=== PATIENT | male | born 1960 | race Caucasian/White ===

== ENCOUNTER → 2017-04-08 | Outpatient (CLI) | payer OTHER ==
--- NOTE | 2017-04-08 18:28 | US ---
EXAMINATION TYPE: US thyroid st tissue head/neck DATE OF EXAM: 04/08/2017 5:21 PM COMPARISON: CLINICAL HISTORY: R22.0 Swelling. swelling, hurts when yawns per patient GLAND SIZE: Right Lobe: 5.0 x 2.1 x 2.3 cm Overall Parenchyma: homogenous Left Lobe: 3.7 x 1.1 x 2.0 cm Overall Parenchyma: homogeneous Isthmus Thickness: 0.3 cm NODULES RIGHT: # of nodules measured on right: 0 LEFT: # of nodules measured on left: 0 ISTHMUS: # of nodules measured in the isthmus: 0 Bilateral neck scanned, no evidence of lymphadenopathy. Right lobe appears enlarged. No prominent nodules or lesions seen. IMPRESSION: The right lobe is larger than the left consistent with a mild asymmetric goiter. No discrete mass see n.
== END | disposition home or self-care (01) ==
LOC: RADUSWWP 17:08
PROVIDERS: ATTEND Internal Medicine
DX: R59.0 Localized enlarged lymph nodes (principal)
CPT/HCPCS: 76536

== ENCOUNTER 2017-11-07 13:16 | Emergency (ER) | payer OTHER ==
[2017-11-07 13:39] VITALS: BP 135/77; PULSE 90; RESP 18; TEMP 98.5
--- NOTE | 2017-11-07 14:14 | ED ---
Upper Extremity HPI - General Chief Complaint: Extremity Injury, Upper Stated Complaint: Elbow Pain Time Seen by Provider: 11/07/17 13:33 Source: patient Mode of arrival: ambulatory Limitations: no limitations - History of Present Illness Initial Comments: 56-year-old male patient presents to the emergency department today for evaluation of right elbow swelling. Patient states that has been swollen like this for quite some time now. States he did have it drained at his orthopedic physician's office on October 18. He states that he does have an appointment with the same physician on November 14 for further evaluation. He states that the site has been increasing in size since seeing his physician on the first. He states that the pain has been worsening. He states that he feels a vibration sensation to the medial aspect of the elbow. He denies taking anything for pain. He denies any numbness or tingling in the hand or arm. He denies any injury to the elbow. He denies any known fever however states that he does occasionally wake with night sweats. Patient denies any recent rash, chills, shortness breath, chest pain, abdominal pain, nausea, vomiting, diarrhea , constipation, back pain, numbness, tingling, dizziness, weakness, hematuria, dysuria, urinary urgency, urinary frequency, headache, visual changes, or any other complaints. - Related Data Home Medications Medication Instructions Recorded Confirmed Albuterol Inhaler [Ventolin Hfa 2 puff INHALATION RT-Q6H PRN 11/07/17 11/07/17 Inhaler] Metoprolol Tartrate [Lopressor] 25 mg PO QAM 11/07/17 11/07/17 Previous Rx's Medication Instructions Recorded Ibuprofen [Motrin] 600 mg PO Q8HR PRN #30 tab 11/07/17 Allergies Allergy/AdvReac Type Severity Reaction Status Date / Time No Known Allergies Allergy Verified 11/07/17 14:00 Review of Systems ROS Statement: Those systems with pertinent positive or pertinent negative responses have been documented in the HPI. ROS Other: All systems not noted in ROS Statement are negative. Past Medical History Past Medical History: No Reported History History of Any Multi-Drug Resistant Organisms: None Reported Past Surgical History: No Surgical Hx Reported Past Psychological History: No Psychological Hx Reported Smoking Status: Current every day smoker Past Alcohol Use History: None Reported Past Drug Use History: None Reported General Exam Limitations: no limitations General appearance: alert, in no apparent distress, other (This is a well- developed, well-nourished adult male patient in no acute distress. Vital signs upon presentation are temperature 98.5F, pulse 90, respirations 18, blood pressure 135/77, pulse ox 95% on room air.) Respiratory exam: Present: normal lung sounds bilaterally. Absent: respiratory distress, wheezes, rales, rhonchi, stridor Cardiovascular Exam: Present: regular rate, normal rhythm, normal heart sounds. Absent: systolic murmur, diastolic murmur, rubs, gallop, clicks Extremities exam: Present: full ROM, normal capillary refill, other (Right elbow swelling, swelling surrounds the extensor surface. There is no evidence of erythema, elbow is warm to touch but not hot. Skin to the remainder of the arm is pink, warm, and dry. Cap refills less than 3 seconds. Distal pulses are intact. Patient has full range of motion of the elbow without limitation.) . Absent: tenderness, pedal edema, joint swelling, calf tenderness Neurological exam: Present: alert, oriented X3, CN II-XII intact Psychiatric exam: Present: normal affect, normal mood Skin exam: Present: warm, dry, intact, normal color. Absent: rash Course Vital Signs 11/07/17 13:32 Temperature 98.5 F Pulse Rate 90 Respiratory 18 Rate Blood Pressure 135/77 O2 Sat by Pulse 95 Oximetry Medical Decision Making - Medical Decision Making 56-year-old male patient presented to the emergency department today with complaints of right elbow pain and swelling. Physical examination did reveal swelling to the right elbow consistent with a bursitis. There is no evidence of infection, no redness, no fevers. Patient is under the care of Dr. Mendoza the prevention specialist. He states that he did have a drain in the first and does have an appointment on 11/14/2017. We will provide him with anti- inflammatory pain medication, and given an Yair wrap for compression. He is instructed to keep this appointment with the orthopedic physician. He is instructed to follow-up with his primary care physician for further evaluation. Is instructed to return here immediately for any new, worsening, or concerning symptoms. He verbalizes understanding and agrees with this plan. Disposition Clinical Impression: Bursitis of right elbow Disposition: HOME SELF-CARE Condition: Good Instructions: Elbow Bursitis (ED) Additional Instructions: Keep Yair wrap in place. Take medications as directed. Keep your appointment with orthopedic physician as you have planned. If you would like a second orthopedic opinion call office below for an appointment. Return here immediately for any new, worsening, or concerning symptoms. Prescriptions: Ibuprofen [Motrin] 600 mg PO Q8HR PRN #30 tab PRN Reason: Pain Referrals: Bunny Maria MD [Primary Care Provider] - 1-2 days Time of Disposition: 14:14
== END 2017-11-07 14:23 | disposition home or self-care (01) ==
LOC: EC 13:16
DX: M70.31 Other bursitis of elbow, right elbow (principal); F17.200 Nicotine dependence, unspecified, uncomplicated; Z79.899 Other long term (current) drug therapy
CPT/HCPCS: 99283

== ENCOUNTER 2017-11-22 14:50 | Emergency (ER) | payer OTHER ==
[2017-11-22 14:56] VITALS: BP 161/87; PULSE 95; RESP 18; TEMP 98.2
[2017-11-22] MEDS ORDERED: KETOROLAC 30 MG/ML 1 ML VIAL IM STA (15:23)
--- NOTE | 2017-11-22 15:24 | ED ---
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 Patient states he has been having this pain for the last month. States he has been evaluated by his primary doctor as well as orthopedic physician. He states that he does take ibuprofen for this at home however does not really help him. He states that over the last 3-4 days the pain has been worsening. He states it hurts to lie down or sit up. States that pain is improved with bending forward. States he has been shoveling the snow which is making the pain worse. He states he does have an MRI scheduled for 11/26/2017 however he could not wait. He states also that he is establishing with pain management with Dr. Yang who is waiting for results of his testing before he starts on any pain medications. Patient denies any radiation of the pain down his legs. Denies any numbness or tingling. Denies any loss of bowel or bladder control. Denies any saddle anesthesia. Denies any fever or chills. Denies any history of IV drug use. Patient denies any recent rash, fever, chills, shortness breath, chest pain, abdominal pain, nausea , vomiting, diarrhea, constipation, dizziness, weakness, hematuria, dysuria, urinary urgency, urinary frequency, headache, visual changes, or any other complaints. - Related Data Home Medications Medication Instructions Recorded Confirmed Albuterol Inhaler [Ventolin Hfa 2 puff INHALATION RT-Q6H PRN 11/07/17 11/07/17 Inhaler] Metoprolol Tartrate [Lopressor] 25 mg PO QAM 11/07/17 11/07/17 Previous Rx's Medication Instructions Recorded Ibuprofen [Motrin] 600 mg PO Q8HR PRN #30 tab 11/07/17 Hydrocodone/Acetaminophen [[place] 1 tab PO Q6HR PRN #12 tab 11/22/17 5-325] Allergies Allergy/AdvReac Type Severity Reaction Status Date / Time No Known Allergies Allergy Verified 11/22/17 14:56 Review of Systems ROS Statement: Those systems with pertinent positive or pertinent negative responses have been documented in the HPI. ROS Other: All systems not noted in ROS Statement are negative. Past Medical History Past Medical History: No Reported History History of Any Multi-Drug Resistant Organisms: None Reported Past Surgical History: Orthopedic Surgery Additional Past Surgical History / Comment(s): left clavicle, jaw Past Psychological History: No Psychological Hx Reported Smoking Status: Current every day smoker Past Alcohol Use History: None Reported Past Drug Use History: None Reported General Exam Limitations: no limitations General appearance: alert, in no apparent distress, other (This is a well- developed, well-nourished adult male patient in no acute distress. Vital signs upon presentation are temperature 98.2F, pulse 95, respirations 18, blood pressure 161/87, pulse ox 98% on room air.) Eye exam: Present: normal appearance, PERRL, EOMI. Absent: scleral icterus, conjunctival injection, periorbital swelling ENT exam: Present: normal exam, mucous membranes moist Neck exam: Present: normal inspection. Absent: tenderness, meningismus, lymphadenopathy Respiratory exam: Present: normal lung sounds bilaterally. Absent: respiratory distress, wheezes, rales, rhonchi, stridor Cardiovascular Exam: Present: regular rate, normal rhythm, normal heart sounds. Absent: systolic murmur, diastolic murmur, rubs, gallop, clicks GI/Abdominal exam: Present: soft, normal bowel sounds. Absent: distended, tenderness, guarding, rebound, rigid Extremities exam: Present: normal inspection, full ROM, normal capillary refill , other (Skin to the lower extremities pink, warm, and dry. Cap refills less than 3 seconds. Pedal and posttibial pulses are 2+ and equal bilaterally.). Absent: tenderness, pedal edema, joint swelling, calf tenderness Back exam: Present: normal inspection, paraspinal tenderness (Right thoracic paraspinal tenderness noted.). Absent: vertebral tenderness, rash noted Neurological exam: Present: alert, oriented X3, CN II-XII intact Psychiatric exam: Present: normal affect, normal mood Skin exam: Present: warm, dry, intact, normal color. Absent: rash Course Vital Signs 11/22/17 14:53 Temperature 98.2 F Pulse Rate 95 Respiratory 18 Rate Blood Pressure 161/87 O2 Sat by Pulse 98 Oximetry Medical Decision Making - Medical Decision Making 56-year-old male patient presents to the emergency department today for evaluation of thoracic back pain. Physical examination is unremarkable. Patient has no spinal tenderness however does have some tenderness to the right of the thoracic spine. He has good strength in his upper and lower extremities. He is afebrile. Patient visits are reviewed, he has not been here for this in the past. We will discharge him with a prescription for [place] to get into a couple of days. He is instructed to use these sparingly as needed for when the pain is the worst. He is instructed to continue taking his ibuprofen. He is urged to keep his MRI appointment and appointment with his shading painter. He is instructed to return here immediate for any new, worsening, or concerning symptoms. He verbalizes understanding and agrees with this plan. Disposition Clinical Impression: Chronic back pain Disposition: HOME SELF-CARE Condition: Good Instructions: Chronic Back Pain (ED) Additional Instructions: Continue taking ibuprofen as directed. Apply warm moist heat to the back. Use [id number] muscle rubs. Follow-up with pain management as you have planned. Return here immediately for any new, worsening, or concerning symptoms. Prescriptions: Hydrocodone/Acetaminophen [[place] 5-325] 1 tab PO Q6HR PRN #12 tab PRN Reason: Pain Referrals: Bunny Maria MD [Primary Care Provider] - 1-2 days Brittany Yang MD [STAFF PHYSICIAN] - 1-2 days Time of Disposition: 15:24
== END 2017-11-22 15:34 | disposition home or self-care (01) ==
LOC: EC 14:50
DX: G89.29 Other chronic pain (principal); M54.6 Pain in thoracic spine; F17.200 Nicotine dependence, unspecified, uncomplicated; Z79.899 Other long term (current) drug therapy
CPT/HCPCS: 99283; 96372; J1885

== ENCOUNTER 2018-01-09 12:50 | Emergency (ER) | payer OTHER ==
[2018-01-09 12:57] VITALS: BP 130/84; PULSE 59; RESP 16; TEMP 97.7
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
== END 2018-01-09 14:31 | disposition home or self-care (01) ==
LOC: EC 12:50
DX: S00.83XA Contusion of other part of head, initial encounter (principal); S20.219A Contusion of unspecified front wall of thorax, initial encounter; R00.1 Bradycardia, unspecified; M54.9 Dorsalgia, unspecified; I10 Essential (primary) hypertension; F17.200 Nicotine dependence, unspecified, uncomplicated; Z79.899 Other long term (current) drug therapy; Y04.0XXA Assault by unarmed brawl or fight, initial encounter
CPT/HCPCS: 70450; 70486; 71046; 93005; 99285

== ENCOUNTER 2018-04-22 17:18 | Emergency (ER) | payer OTHER ==
[2018-04-22 17:41] VITALS: BP 135/83; PULSE 78; RESP 18; TEMP 98.5
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
== END 2018-04-22 19:06 | disposition home or self-care (01) ==
LOC: EC 17:18
DX: T21.04XD Burn of unspecified degree of lower back, subsequent encounter (principal); T21.03XD Burn of unspecified degree of upper back, subsequent encounter; I10 Essential (primary) hypertension; F17.200 Nicotine dependence, unspecified, uncomplicated; Z79.899 Other long term (current) drug therapy; X17.XXXD Contact with hot engines, machinery and tools, subsequent encounter; Y93.89 Activity, other specified
CPT/HCPCS: 99283

== ENCOUNTER → 2019-02-19 | Outpatient (CLI) | payer OTHER ==
[2019-02-19 13:12] VITALS: BP 171/129; RESP 16
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
== END | disposition home or self-care (01) ==
LOC: PNWHC3 12:27
PROVIDERS: ATTEND Hospitalist
DX: M47.816 Spondylosis without myelopathy or radiculopathy, lumbar region (principal); F11.10 Opioid abuse, uncomplicated; F17.200 Nicotine dependence, unspecified, uncomplicated
CPT/HCPCS: 99211

== ENCOUNTER 2019-03-05 17:15 | Emergency (ER) | payer OTHER ==
[2019-03-05 17:37] VITALS: BP 142/95; PULSE 78; RESP 18; TEMP 98.6
[2019-03-05] MEDS ORDERED: KETOROLAC 30 MG/ML 1 ML VIAL IM STA (17:55)
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
--- NOTE | 2019-03-05 18:58 | XR ---
EXAMINATION TYPE: XR ribs LT w pa chest xray DATE OF EXAM: 03/05/2019 COMPARISON: 01/09/2018 HISTORY: Left rib pain TECHNIQUE: 5 views FINDINGS: Heart and mediastinum are normal. There is some mild linear density at the right lung base consistent with scarring and atelectasis. There are multiple old left-sided healed rib fractures. The re is a plate fixing old left clavicle fracture. There is nondisplaced fracture left ninth rib on on e view. 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 IMPRESSION: Multiple old left-sided healed rib fractures. Acute nondisplaced fracture left ninth rib. . No heart failure. Mild scarring or subsegmental atelectasis at the right lung base is new compared to old exam.
== END 2019-03-05 19:22 | disposition home or self-care (01) ==
LOC: EC 17:15
DX: S22.32XA Fracture of one rib, left side, initial encounter for closed fracture (principal); I10 Essential (primary) hypertension; F17.200 Nicotine dependence, unspecified, uncomplicated; Z79.899 Other long term (current) drug therapy; W06.XXXA Fall from bed, initial encounter
CPT/HCPCS: 71101; 99283; 96372; J1885

== ENCOUNTER 2020-04-26 14:33 | Emergency (ER) | payer OTHER ==
[2020-04-26 14:44] VITALS: TEMP 98.1
[2020-04-26] MEDS ORDERED: ASPIRIN 81 MG PO STA (15:05)
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
[2020-04-26 15:42] LABS: Basophils % (A) 1 %; Eosinophils # (A) 0.1 k/uL (0-0.7); Eosinophils % (A) 2 %; HCT 43.3 % (39.0-53.0); HGB 14.3 gm/dL (13.0-17.5); Lymphocytes # (A) 1.2 k/uL (1.0-4.8); Lymphocytes % (A) 18 %; MCH 34.6 pg (25.0-35.0); MCHC 33.1 g/dL (31.0-37.0); MCV 104.8 fL (80.0-100.0); Macrocytosis Slight; Mean Platelet Volume 6.7; Monocytes # (A) 0.4 k/uL (0-1.0); Monocytes % (A) 6 %; Neutrophils # (A) 4.7 k/uL (1.3-7.7); Neutrophils % (A) 72 %; Platelet Count 234 k/uL (150-450); RBC 4.13 m/uL (4.30-5.90); RDW 12.9 % (11.5-15.5); WBC 6.6 k/uL (3.8-10.6)
[2020-04-26 15:54] LABS: Partial Thromboplastin Time 26.9 sec (22.0-30.0); Prothrombin Time 10.4 sec (9.0-12.0)
[2020-04-26] MEDS ORDERED: SODIUM CHLORIDE 0.9% 1,000 ML IV ONE (15:59)
[2020-04-26 16:01] LABS: ALT 15 U/L (4-49); AST 36 U/L (17-59); African American GFR (CKD) >90 (>60 ml/min/1.73 sqM); Albumin 4.4 g/dL (3.5-5.0); Alkaline Phosphatase 139 U/L (38-126); Anion Gap 6 mmol/L; Blood Urea Nitrogen 13 mg/dL (9-20); Calcium 9.5 mg/dL (8.4-10.2); Carbon Dioxide 29 mmol/L (22-30); Chloride 103 mmol/L (98-107); Glucose 95 mg/dL (74-99); Non-African American GFR(CKD) >90 (>60 ml/min/1.73 sqM); Potassium 3.7 mmol/L (3.5-5.1); Sodium 138 mmol/L (137-145); Total Bilirubin 0.6 mg/dL (0.2-1.3); Total Protein 7.8 g/dL (6.3-8.2)
--- NOTE | 2020-04-26 16:09 | CT ---
EXAMINATION TYPE: CT chest angio for PE DATE OF EXAM: 04/26/2020 COMPARISON: 12/04/2011 HISTORY: SOB CT DLP: 393.8 mGycm Automated exposure control for dose reduction was used. CONTRAST: CT Chest for pulmonary embolism performed with with IV Contrast, patient injected with 73cc mL of Iso ishmael 370. FINDINGS: LUNGS: Within the medial aspect of left upper lobe and periphery of the right upper lobe there subseg mental atelectasis favored over pneumonia. Interlobular septal thickening suggest a degree of chronic interstitial lung disease. No pleural effusion. No pneumothorax. Hyperinflation suggests COPD. Basil ar subsegmental atelectasis favored over pneumonia. MEDIASTINUM: The heart is enlarged. Within the right upper lobe on axial image 52 there is a low-dens ity filling defect. Although this could be artifactual and small pulmonary embolism cannot be exclude d. Artifact limits assessment aortic root. The ascending aorta measures a maximal dimension of 3.9 cm compatible with mild aneurysmal dilation. OTHER: There is a 7 mm upper pole left renal calculus. Hypertrophic and degenerative changes of the spine. Chronic rib deformities are noted. Chronic wedge deformity in the midthoracic spine. IMPRESSION: 1. Exam limited by artifact. Within the right upper lobe on axial image 52 there is questionable smal l filling defect within upper lobe right pulmonary artery branch. Small pulmonary embolism is suggest ed correlate clinically. 2. Correlate for COPD. 3. Left renal calculus.
[2020-04-26] MEDS ORDERED: HEPARIN SODIUM,PORCINE 5,000 UNIT/ML 1 ML VIAL IV PRN (16:13)
[2020-04-26] MEDS ORDERED: HEPARIN SODIUM,PORCINE 10,000 UNIT/ML 1 ML VIAL IV ONE (16:13)
[2020-04-26] MEDS ORDERED: HEPARIN SOD,PORK IN 0.45% NACL 25,000 UNIT in 0.45% NACL 1 250ML.BAG IV SCH (16:15)
[2020-04-26] MEDS ORDERED: ACETAMINOPHEN TAB 325 MG TAB PO PRN (17:55)
[2020-04-26] MEDS ORDERED: NALOXONE 0.4 MG/ML 1 ML VIAL IV PRN (17:55)
[2020-04-26 18:50] VITALS: PULSE 94; RESP 14
[2020-04-26 19:24] VITALS: BP 121/72
[2020-04-26] MEDS ORDERED: APIXABAN 5 MG TAB PO STA (21:06)
--- NOTE | 2020-04-26 21:33 | ED ---
Medical Decision Making - Medical Decision Making Pt denies any sob chest pain at discharge. States he is asymptomatic. Denies any bleeding or CI to anticoagulation. - Lab Data Result diagrams: 04/26/20 15:25 04/26/20 15:25 Lab Results 04/26/20 04/26/20 04/26/20 Range/Units 15:25 15:25 15:25 WBC 6.6 (3.8-10.6) k/uL RBC 4.13 L (4.30-5.90) m/uL Hgb 14.3 (13.0-17.5) gm/dL Hct 43.3 (39.0-53.0) % MCV 104.8 H (80.0-100.0) fL MCH 34.6 (25.0-35.0) pg MCHC 33.1 (31.0-37.0) g/dL RDW 12.9 (11.5-15.5) % Plt Count 234 (150-450) k/uL Neutrophils % 72 % Lymphocytes % 18 % Monocytes % 6 % Eosinophils % 2 % Basophils % 1 % Neutrophils # 4.7 (1.3-7.7) k/uL Lymphocytes # 1.2 (1.0-4.8) k/uL Monocytes # 0.4 (0-1.0) k/uL Eosinophils # 0.1 (0-0.7) k/uL Basophils # 0.0 (0-0.2) k/uL Macrocytosis Slight PT 10.4 (9.0-12.0) sec INR 1.0 (<1.2) APTT 26.9 (22.0-30.0) sec Sodium 138 (137-145) mmol/L Potassium 3.7 (3.5-5.1) mmol/L Chloride 103 (98-107) mmol/L Carbon Dioxide 29 (22-30) mmol/L Anion Gap 6 mmol/L BUN 13 (9-20) mg/dL Creatinine 0.89 (0.66-1.25) mg/dL Est GFR (CKD-EPI)AfAm >90 (>60 ml/min/1.73 sqM) Est GFR (CKD-EPI)NonAf >90 (>60 ml/min/1.73 sqM) Glucose 95 (74-99) mg/dL Calcium 9.5 (8.4-10.2) mg/dL Total Bilirubin 0.6 (0.2-1.3) mg/dL AST 36 (17-59) U/L ALT 15 (4-49) U/L Alkaline Phosphatase 139 H (38-126) U/L Troponin I (0.000-0.034) ng/mL Total Protein 7.8 (6.3-8.2) g/dL Albumin 4.4 (3.5-5.0) g/dL 04/26/20 Range/Units 15:25 WBC (3.8-10.6) k/uL RBC (4.30-5.90) m/uL Hgb (13.0-17.5) gm/dL Hct (39.0-53.0) % MCV (80.0-100.0) fL MCH (25.0-35.0) pg MCHC (31.0-37.0) g/dL RDW (11.5-15.5) % Plt Count (150-450) k/uL Neutrophils % % Lymphocytes % % Monocytes % % Eosinophils % % Basophils % % Neutrophils # (1.3-7.7) k/uL Lymphocytes # (1.0-4.8) k/uL Monocytes # (0-1.0) k/uL Eosinophils # (0-0.7) k/uL Basophils # (0-0.2) k/uL Macrocytosis PT (9.0-12.0) sec INR (<1.2) APTT (22.0-30.0) sec Sodium (137-145) mmol/L Potassium (3.5-5.1) mmol/L Chloride (98-107) mmol/L Carbon Dioxide (22-30) mmol/L Anion Gap mmol/L BUN (9-20) mg/dL Creatinine (0.66-1.25) mg/dL Est GFR (CKD-EPI)AfAm (>60 ml/min/1.73 sqM) Est GFR (CKD-EPI)NonAf (>60 ml/min/1.73 sqM) Glucose (74-99) mg/dL Calcium (8.4-10.2) mg/dL Total Bilirubin (0.2-1.3) mg/dL AST (17-59) U/L ALT (4-49) U/L Alkaline Phosphatase (38-126) U/L Troponin I <0.012 (0.000-0.034) ng/mL Total Protein (6.3-8.2) g/dL Albumin (3.5-5.0) g/dL Disposition Clinical Impression: Pulmonary embolism Disposition: HOME SELF-CARE Condition: Stable Additional Instructions: Follow-up with primary care provider tomorrow. Take medication as directed. You will be given your first dose tonight, make sure to fill this prescription tomorrow. Take it twice a day for one week. Follow-up with primary care jarred caro tomorrow. Return immediately to ER if condition worsens in any way including chest pain shortness of breath. Prescriptions: Apixaban [Eliquis] 5 mg PO DIRECTED #42 tab Is patient prescribed a controlled substance at d/c from ED?: No Referrals: None,Stated [Primary Care Provider] - 1-2 days Sukhdev Scruggs Jr, [Doctor of Osteopathic Medicine] - 1-2 days Lloyd House [STAFF PHYSICIAN] - 1-2 days
== END 2020-04-26 22:05 | disposition home or self-care (01) ==
LOC: EC 14:33 → UNDOADMIN 17:56 → 4SSUR 17:56 → EC 22:05
DX: I26.99 Other pulmonary embolism without acute cor pulmonale (principal); I10 Essential (primary) hypertension; J44.9 Chronic obstructive pulmonary disease, unspecified; F17.200 Nicotine dependence, unspecified, uncomplicated; Z79.899 Other long term (current) drug therapy; Z86.718 Personal history of other venous thrombosis and embolism; Z20.828 Contact with and (suspected) exposure to other viral communicable diseases
CPT/HCPCS: 99284; 96365; 96375; 96366 ×4; 36415; 93005; 80053; 84484; 85025; 85610; 85730; 71275; U0003; J1644 ×2; Q9967

== ENCOUNTER 2020-05-28 22:57 | Observation (INO) | payer OTHER ==
[2020-05-28] MEDS ORDERED: MORPHINE SULFATE 4 MG/ML SYRINGE IM STA (23:55)
[2020-05-29] MEDS ORDERED: SODIUM CHLORIDE 0.9% 1,000 ML IV ONE (00:25)
[2020-05-29 00:26] LABS: Basophils % (A) 1 %; Eosinophils # (A) 0.2 k/uL (0-0.7); Eosinophils % (A) 2 %; HCT 36.3 % (39.0-53.0); HGB 11.8 gm/dL (13.0-17.5); Lymphocytes # (A) 1.1 k/uL (1.0-4.8); Lymphocytes % (A) 12 %; MCH 33.9 pg (25.0-35.0); MCHC 32.5 g/dL (31.0-37.0); MCV 104.2 fL (80.0-100.0); Macrocytosis Slight; Monocytes # (A) 0.6 k/uL (0-1.0); Monocytes % (A) 6 %; Neutrophils # (A) 6.7 k/uL (1.3-7.7); Neutrophils % (A) 78 %; Platelet Count 310 k/uL (150-450); RBC 3.49 m/uL (4.30-5.90); RDW 13.8 % (11.5-15.5); WBC 8.6 k/uL (3.8-10.6)
--- NOTE | 2020-05-29 00:31 | CT ---
EXAMINATION TYPE: CT brain tamiine wo con DATE OF EXAM: 05/29/2020 COMPARISON: CT brain 01/09/2018 HISTORY: Fall CT DLP: 1436.1 mGycm Automated exposure control for dose reduction was used. Ventricles and sulci appear normal. There is no mass effect nor midline shift. There is no sign of in tracranial hemorrhage. The calvarium is intact. Skull base is intact. There is normal aeration of the temporal bones. Cervical vertebra have normal alignment. There is some disc space narrowing at C5-6 and C6-7 with spu rring of the endplates. Posterior elements are intact. Facet joints are intact. There is moderate rig ht side C4-5 facet arthropathy. Prevertebral soft tissues appear intact. IMPRESSION: Negative CT scan of the brain. No change. Spondylotic changes in the lower cervical spine. No fracture seen.
[2020-05-29 00:41] LABS: ALT 21 U/L (4-49); AST 52 U/L (17-59); African American GFR (CKD) >90 (>60 ml/min/1.73 sqM); Albumin 3.9 g/dL (3.5-5.0); Alcohol 38 mg/dL; Alkaline Phosphatase 113 U/L (38-126); Anion Gap 11 mmol/L; Blood Urea Nitrogen 14 mg/dL (9-20); Calcium 8.6 mg/dL (8.4-10.2); Carbon Dioxide 28 mmol/L (22-30); Chloride 98 mmol/L (98-107); Glucose 111 mg/dL (74-99); Non-African American GFR(CKD) >90 (>60 ml/min/1.73 sqM); Potassium 3.3 mmol/L (3.5-5.1); Sodium 137 mmol/L (137-145); Total Bilirubin 0.7 mg/dL (0.2-1.3); Total Protein 6.8 g/dL (6.3-8.2)
--- NOTE | 2020-05-29 00:44 | CT ---
EXAMINATION TYPE: CT ChestAbdPelvis w con DATE OF EXAM: 05/29/2020 COMPARISON: CT chest 04/26/2020 HISTORY: Fall Right-sided rib pain CT DLP: 1566.2 mGycm Automated exposure control for dose reduction was used. CONTRAST: Performed with IV Contrast, patient injected with 100 mL of Isovue 300. There is small right pleural effusion. There is some patchy atelectasis right lung base. Heart size i s normal. There is no pericardial effusion. There is no pneumothorax. Thoracic aorta is intact. There is no aneurysm or dissection. There is no mediastinal adenopathy. There are no hilar masses. Liver and spleen appear intact. Bile ducts are not dilated. Gallbladder appears normal. Stomach is in tact. There is no evidence of pancreatic mass. There is no adrenal mass. There is 1 cm calculus posterior left kidney. Ureters are not dilated. Kidn eys show satisfactory contrast opacification. There is no hydronephrosis. Ureters are not dilated. Th ere is no retroperitoneal adenopathy. Bladder distends smoothly. There is prostatic calcification. Th ere is no inguinal hernia. There is no free fluid in the pelvis. There is L5 spondylolysis with first-degree L5-S1 spondylolisthesis that appears chronic. There is mu ltilevel disc space narrowing in the thoracic and lumbar spine. There is 15% wedging of L1 vertebra t hat is probably old. There is anterior wedging of T8 vertebra 50% that is probably old. I see no defi nite acute compression fracture. The sternum is intact. The bony pelvis is intact. Hip joints appear intact. Delayed images show normal renal excretion. There is comminuted fracture posterior right 11th rib. There is also comminuted displaced fracture po sterior lateral right 10th rib. There is mildly displaced fracture posterior lateral right ninth rib. There is nondisplaced fracture of the right transverse process of T10. There is no pneumothorax. The re is some deformity posterior left side 11th 10th ribs consistent with old fractures. There is defor mity left posterior seventh and sixth ribs related to old fractures. The shoulder joints appear intac t. There is a plate with screws fixing the left clavicle. There is some osteoarthritis in the left sh oulder joint. IMPRESSION: Multiple lower posterior right side acute rib fractures with small pleural effusion and basilar atele ctasis. Multiple old left-sided healed rib fractures. No acute traumatic injury within the abdomen and pelvis. Old thoracic and lumbar compression fracture s.
--- NOTE | 2020-05-29 00:46 | XR ---
EXAMINATION TYPE: XR chest 1V DATE OF EXAM: 05/29/2020 COMPARISON: 03/05/2019 HISTORY: Fall. Chest pain TECHNIQUE: Single view FINDINGS: There is some coarsening of interstitial markings. There is evidence for some mild fibrosis or atelectasis at the lung bases. There is no heart failure. There are old left side healed rib frac tures. There is plate with screws fixing old left clavicle fracture. IMPRESSION: There is some mild pleural reaction at the lung bases that is new compared to old exam. N o heart failure. No pulmonary consolidation. No pneumothorax.
[2020-05-29 01:04] LABS: INR 1.2 (<1.2); Partial Thromboplastin Time 26.9 sec (22.0-30.0); Prothrombin Time 12.1 sec (9.0-12.0)
[2020-05-29] MEDS ORDERED: HYDROmorphone 0.5 MG/0.5 ML SYRINGE IVP STA (01:30)
[2020-05-29] MEDS ORDERED: LIDOCAINE 5% PATCH TOPICAL STA (01:31)
--- NOTE | 2020-05-29 01:33 | ED ---
General Adult HPI - General Source: patient, RN notes reviewed, old records reviewed Mode of arrival: wheelchair Limitations: no limitations <Gideon Dash - Last Filed: 05/29/20 02:21> <Roland Che - Last Filed: 05/29/20 08:11> - General Chief complaint: Back Pain/Injury Stated complaint: Fall, back injury Time Seen by Provider: 05/28/20 23:19 - History of Present Illness Initial comments: 59-year-old male patient presents ED for evaluation of fall. Patient reports that he was walking down the stairs and he slipped landing on his right side. Patient reports that he heard a crunch. Patient does not know if he hit his head. He denies a loss of consciousness. Patient reports that he is on blood thinners secondary to pulmonary embolism in the past. He reports that he was told to stop taking them for a few days because his levels were too high. He does report that he was drinking alcohol prior to the fall. Denies chest pain or any shortness of breath. Systemic: Pt denies fatigue, fever/chills, rash. Pt denies weakness, night sweats, weight loss. Neuro: Pt denies headache, visual disturbances, syncope or pre-syncope. HEENT: Pt denies ocular discharge or irritation, otalgia, rhinorrhea, ph aryngitis or notable lymphadenopathy. Cardiopulmonary: Pt denies chest pain, SOB, heart palpitations, dyspnea on exertion. Abdominal/GI: Pt denies abdominal pain, n/v/d. : Pt denies dysuria, burning w/ urination, frequency/urgency. Denies new onset urinary or bowel incontinence. MSK: Pt denies myalgia, loss of strength or function in extremities. Neuro: Pt denies new onset weakness, paresthesias. (Gideon Dash) - Related Data Home Medications Medication Instructions Recorded Confirmed Metoprolol Tartrate [Lopressor] 25 mg PO QAM 11/07/17 04/26/20 Lisinopril [Zestril] 5 mg PO DAILY 04/26/20 04/26/20 Previous Rx's Medication Instructions Recorded Apixaban [Eliquis] 5 mg PO DIRECTED #42 tab 04/26/20 Allergies Allergy/AdvReac Type Severity Reaction Status Date / Time No Known Allergies Allergy Verified 05/28/20 23:14 Review of Systems ROS Other: All systems not noted in ROS Statement are negative. <Gideon Dash - Last Filed: 05/29/20 02:21> ROS Other: All systems not noted in ROS Statement are negative. <Roland Che - Last Filed: 05/29/20 08:11> ROS Statement: Those systems with pertinent positive or pertinent negative responses have been documented in the HPI. Past Medical History Past Medical History: COPD, Hypertension, Musculoskeletal Disorder Additional Past Medical History / Comment(s): "broken back 01/06/19", "heart arrhythmia's," DVT right leg, History of Any Multi-Drug Resistant Organisms: None Reported Past Surgical History: Orthopedic Surgery Additional Past Surgical History / Comment(s): left clavicle, jaw, Past Anesthesia/Blood Transfusion Reactions: No Reported Reaction Past Psychological History: No Psychological Hx Reported Smoking Status: Current every day smoker Past Alcohol Use History: Occasional Past Drug Use History: None Reported - Past Family History Sister(s) Family Medical History: Cancer Additional Family Medical History / Comment(s): 2 sisters from cancer <Gideon Dash - Last Filed: 05/29/20 02:21> General Exam Limitations: no limitations <Gideon Dash - Last Filed: 05/29/20 02:21> - General Exam Comments Initial Comments: Constitutional: NAD, AOX3, Pt has pleasant affect. HEENT: NC/AT, trachea midline, neck supple, no lymphadenopathy. Posterior pharynx non erythematous, without exudates. External ears appear normal, without discharge. Mucous membranes moist. Eyes PERRLA, EOM intact. There is no scleral icterus. No pallor noted. Cardiopulmonary: RRR, no murmurs, rubs or gallops, no JVD noted. Lungs CTAB in anterior and posterior arauz. Abdominal exam: Abdomen soft and non-distended. Abdomen non-tender to palpation in all 4 quadrants. Bowel sounds active in LLQ. No hepatosplenomegaly. No ecchymosis. Neuro: CN II-XII grossly intact. No nuchal rigidity. No raccon eyes, no pereyra sign, no hemotympanum. No cervical spinal tenderness. MSK: Full active ROM in upper and lower extremities, 5/5 stregnth. Right lower ribs are tender to palpation. There are no external skin changes. (Gideon Dash) Course Vital Signs 05/28/20 05/29/20 05/29/20 23:10 00:30 01:41 Temperature 98.0 F Pulse Rate 70 71 Pulse Rate [ Pulse Oximetery ] Respiratory 18 18 18 Rate Blood Pressure 102/68 135/86 145/93 Blood Pressure [Left Arm] O2 Sat by Pulse 98 97 96 Oximetry 05/29/20 03:20 Temperature 97.4 F L Pulse Rate Pulse Rate [ 76 Pulse Oximetery ] Respiratory 16 Rate Blood Pressure Blood Pressure 135/83 [Left Arm] O2 Sat by Pulse 98 Oximetry Medical Decision Making - Lab Data Result diagrams: 05/28/20 23:54 05/28/20 23:54 <Gideon Dash - Last Filed: 05/29/20 02:21> - Lab Data Result diagrams: 05/28/20 23:54 05/28/20 23:54 <Roland Che - Last Filed: 05/29/20 08:11> - Medical Decision Making 59-year-old male patient presents ED for evaluation of fall. Patient reports that he was walking down the stairs and he slipped landing on his right side. Patient reports that he heard a crunch. Patient does not know if he hit his head. He denies a loss of consciousness. Patient reports that he is on blood thinners secondary to pulmonary embolism in the past. He reports that he was told to stop taking them for a few days because his levels were too high. He does report that he was drinking alcohol prior to the fall. Denies chest pain or any shortness of breath. Patient vital signs stable, afebrile. Physical exam displayed right lateral rib tenderness. CT brain C-spine was negative for acute process. CT chest abdomen pelvis displayed rib fractures of ribs 9, 10, 11. Patient will be admitted for further evaluation. Case and pt seen by Dr. Reynaga. (Gideon Dash) I saw this patient in conjunction with the physician virtual assistant for [employer]. I performed independent history and physical exam. Agree with case management. (Roland Che) - Lab Data Lab Results 05/28/20 05/28/20 05/29/20 Range/Units 23:54 23:54 00:04 WBC 8.6 (3.8-10.6) k/uL RBC 3.49 L (4.30-5.90) m/uL Hgb 11.8 L (13.0-17.5) gm/dL Hct 36.3 L (39.0-53.0) % MCV 104.2 H (80.0-100.0) fL MCH 33.9 (25.0-35.0) pg MCHC 32.5 (31.0-37.0) g/dL RDW 13.8 (11.5-15.5) % Plt Count 310 (150-450) k/uL Neutrophils % 78 % Lymphocytes % 12 % Monocytes % 6 % Eosinophils % 2 % Basophils % 1 % Neutrophils # 6.7 (1.3-7.7) k/uL Lymphocytes # 1.1 (1.0-4.8) k/uL Monocytes # 0.6 (0-1.0) k/uL Eosinophils # 0.2 (0-0.7) k/uL Basophils # 0.0 (0-0.2) k/uL Macrocytosis Slight PT 12.1 H (9.0-12.0) sec INR 1.2 H (<1.2) APTT 26.9 (22.0-30.0) sec Sodium 137 (137-145) mmol/L Potassium 3.3 L (3.5-5.1) mmol/L Chloride 98 (98-107) mmol/L Carbon Dioxide 28 (22-30) mmol/L Anion Gap 11 mmol/L BUN 14 (9-20) mg/dL Creatinine 0.78 (0.66-1.25) mg/dL Est GFR (CKD-EPI)AfAm >90 (>60 ml/min/1.73 sqM) Est GFR (CKD-EPI)NonAf >90 (>60 ml/min/1.73 sqM) Glucose 111 H (74-99) mg/dL Calcium 8.6 (8.4-10.2) mg/dL Total Bilirubin 0.7 (0.2-1.3) mg/dL AST 52 (17-59) U/L ALT 21 (4-49) U/L Alkaline Phosphatase 113 (38-126) U/L Total Protein 6.8 (6.3-8.2) g/dL Albumin 3.9 (3.5-5.0) g/dL Urine Color Urine Appearance (Clear) Urine pH (5.0-8.0) Ur Specific [place] (1.001-1.035) Urine Protein (Negative) Urine Glucose (UA) (Negative) Urine Ketones (Negative) Urine Blood (Negative) Urine Nitrite (Negative) Urine Bilirubin (Negative) Urine Urobilinogen (<2.0) mg/dL Ur Leukocyte Esterase (Negative) Serum Alcohol 38 mg/dL 05/29/20 Range/Units 01:54 WBC (3.8-10.6) k/uL RBC (4.30-5.90) m/uL Hgb (13.0-17.5) gm/dL Hct (39.0-53.0) % MCV (80.0-100.0) fL MCH (25.0-35.0) pg MCHC (31.0-37.0) g/dL RDW (11.5-15.5) % Plt Count (150-450) k/uL Neutrophils % % Lymphocytes % % Monocytes % % Eosinophils % % Basophils % % Neutrophils # (1.3-7.7) k/uL Lymphocytes # (1.0-4.8) k/uL Monocytes # (0-1.0) k/uL Eosinophils # (0-0.7) k/uL Basophils # (0-0.2) k/uL Macrocytosis PT (9.0-12.0) sec INR (<1.2) APTT (22.0-30.0) sec Sodium (137-145) mmol/L Potassium (3.5-5.1) mmol/L Chloride (98-107) mmol/L Carbon Dioxide (22-30) mmol/L Anion Gap mmol/L BUN (9-20) mg/dL Creatinine (0.66-1.25) mg/dL Est GFR (CKD-EPI)AfAm (>60 ml/min/1.73 sqM) Est GFR (CKD-EPI)NonAf (>60 ml/min/1.73 sqM) Glucose (74-99) mg/dL Calcium (8.4-10.2) mg/dL Total Bilirubin (0.2-1.3) mg/dL AST (17-59) U/L ALT (4-49) U/L Alkaline Phosphatase (38-126) U/L Total Protein (6.3-8.2) g/dL Albumin (3.5-5.0) g/dL Urine Color Yellow Urine Appearance Clear (Clear) Urine pH 5.5 (5.0-8.0) Ur Specific [place] 1.050 H (1.001-1.035) Urine Protein Trace H (Negative) Urine Glucose (UA) Negative (Negative) Urine Ketones Negative (Negative) Urine Blood Negative (Negative) Urine Nitrite Negative (Negative) Urine Bilirubin Negative (Negative) Urine Urobilinogen <2.0 (<2.0) mg/dL Ur Leukocyte Esterase Negative (Negative) Serum Alcohol mg/dL Disposition Is patient prescribed a controlled substance at d/c from ED?: No <Gideon Dash - Last Filed: 05/29/20 02:21> <Roland Che - Last Filed: 05/29/20 08:11> Clinical Impression: Fall, Rib fracture Disposition: ADMITTED IP TO THIS HOSP Condition: Serious
[2020-05-29 02:08] LABS: Appearance,Urine Clear (Clear); Bilirubin,Urine Negative (Negative); Blood,Urine Negative (Negative); Color,Urine Yellow; Glucose,Urine (UA) Negative (Negative); Ketones,Urine Negative (Negative); Leukocyte Esterase,Urine Negative (Negative); Nitrite,Urine Negative (Negative); PH, Urine 5.5 (5.0-8.0); Protein,Urine Trace (Negative); Urobilinogen,Urine <2.0 mg/dL (<2.0)
[2020-05-29] MEDS ORDERED: HYDROmorphone 0.5 MG/0.5 ML SYRINGE IVP PRN (02:19)
[2020-05-29] MEDS ORDERED: NALOXONE 0.4 MG/ML 1 ML VIAL IV PRN (02:19)
--- NOTE | 2020-05-29 09:47 | P.HPIM ---
History of Present Illness H&P Date: 05/29/20 Chief Complaint: Right sided back and rib pain 59-year-old male presented emergency room in wheelchair with complaints of back pain and right-sided rib pain post fall. Reports that he slipped going down a set of stairs and landed on his right side. He reports hearing a crunch when he landed on the stairs and hurt taking deep breaths. He reportedly walked the 2 blocks to the emergency room from where the incident happened. He denies losing consciousness, or hitting his head with the fall. He reported being on blood thinners secondary to having pulmonary embolus in the past. He was told to withhold from taking the Coumadin because his INR was elevated. He denied shortness of breath with the exception of taking deep breaths and that he was drinking alcohol to time in the fall. 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 Currently he denies difficulty breathing, chest pain, headache or visual disturbances. He does also have a complaint of pain in the left lower extremity with new increased edema in that leg. His past medical history of COPD, hypertension, musculoskeletal disorder of a broken back in 01/06/2019, heart arrhythmias. He is occurring every day smoker and occasional alcohol use. He has a family history noted for cancer, with 2 sisters that are from the aforementioned. Initial lab work white blood count of 8.6 hemoglobin 11.8, hematocrit 36.3, platelet count of 310. PT of 12.1, INR 1.2, APTT 26.9. Chemistry revealed a sodium 137, potassium at 3.3, V1 of 14, creatinine of 0.78, glucose of 111, AST of 52, ELT of 21. Serum alcohol level of 38. Chest x-ray revealed some mild pleural rosi ction at the lung bases that is new compared EXAM no heart failure, no pulmonary consolidation, no pneumothorax. CT revealed lower posterior right side acute rib fractures with small pleural effusion and basilar atelectasis and also noted old left-sided healed rib fractures, no acute traumatic injury within the abdomen or pelvis. Also makes note of old thoracic and lumbar compression fractures. Head CT may note of no change and negative for bleed at this time there is spondylitic changes in the lower cervical spine, no fractures are seen. Review of Systems Constitutional: Reports as per HPI Ears, nose, mouth and throat: Reports as per HPI Cardiovascular: Reports as per HPI, Reports high blood pressure, Reports leg edema Respiratory: Reports dyspnea, Reports pain on inspiration Gastrointestinal: Reports as per HPI Genitourinary: Reports as per HPI Musculoskeletal: Reports myalgias Musculoskeletal: left: ankle pain, ankle swelling Integumentary: Reports as per HPI Neurological: Reports as per HPI Psychiatric: Reports as per HPI Endocrine: Reports as per HPI Hematologic/Lymphatic: Reports as per HPI Allergic/Immunologic: Reports as per HPI Past Medical History Past Medical History: COPD, Hypertension, Musculoskeletal Disorder Additional Past Medical History / Comment(s): "broken back 01/06/19", "heart arrhythmia's," DVT right leg, PE History of Any Multi-Drug Resistant Organisms: None Reported Past Surgical History: Orthopedic Surgery Additional Past Surgical History / Comment(s): left clavicle, jaw, Past Anesthesia/Blood Transfusion Reactions: No Reported Reaction Past Psychological History: No Psychological Hx Reported Smoking Status: Current every day smoker Past Alcohol Use History: Daily, Occasional Additional Past Alcohol Use History / Comment(s): smoker for 40 years 5 cig/d Past Drug Use History: None Reported - Past Family History Sister(s) Family Medical History: Cancer Additional Family Medical History / Comment(s): 2 sisters from cancer Medications and Allergies Home Medications Medication Instructions Recorded Confirmed Type Metoprolol Tartrate [Lopressor] 25 mg PO QAM 11/07/17 05/29/20 History Lisinopril [Zestril] 5 mg PO DAILY 04/26/20 05/29/20 History Warfarin Sodium [Coumadin] 5 mg PO DAILY 05/29/20 05/29/20 History Allergies Allergy/AdvReac Type Severity Reaction Status Date / Time No Known Allergies Allergy Verified 05/29/20 08:25 Physical Exam Vitals: Vital Signs Temp Pulse Pulse Resp BP BP BP 05/29/20 04:34 98.4 F 76 16 124/71 05/29/20 03:20 97.4 F L 76 16 135/83 05/29/20 01:41 18 145/93 05/29/20 00:30 71 18 135/86 05/28/20 23:10 98.0 F 70 18 102/68 Pulse Ox 05/29/20 04:34 93 L 05/29/20 03:20 98 05/29/20 01:41 96 05/29/20 00:30 97 05/28/20 23:10 98 Intake and Output 05/28/20 05/29/20 05/29/20 22:59 06:59 14:59 Intake Total 240 Balance 240 Intake: Oral 240 Other: Voiding Method Toilet # Voids 1 Weight 81.647 kg GENERAL: Well-appearing, well-nourished and in no acute distress. HEAD: Atraumatic, normocephalic. EYES: Pupils equal round and reactive to light, extraocular movements intact, sclera anicteric, conjunctiva are normal. ENT:nares patent, oropharynx clear without exudates. Moist mucous membranes, poor dentition. NECK: Normal range of motion, supple without lymphadenopathy or JVD, no thyromegaly LUNGS: Breath sounds clear to auscultation bilaterally and equal. No wheezes r ales or rhonchi. HEART: Regular rate and rhythm without murmurs, rubs or gallops.S1S2 Normal ABDOMEN: Soft, nontender, normoactive bowel sounds. No guarding, no rebound. No masses appreciated. EXTREMITIES: Normal range of motion, +2 pitting edema left lower extremity from knee to ankle, +1+2 pitting edema right lower extremity from mid calf to ankle. No clubbing or cyanosis. NEUROLOGICAL: Cranial nerves II through XII grossly intact. Normal speech, normal gait. PSYCH: Normal mood, normal affect. SKIN: Warm, Dry, normal turgor, no rashes or lesions noted. Results CBC & Chem 7: 05/28/20 23:54 05/28/20 23:54 Labs: Abnormal Lab Results - Last 24 Hours (Table) 05/28/20 05/28/20 05/29/20 Range/Units 23:54 23:54 00:04 RBC 3.49 L (4.30-5.90) m/uL Hgb 11.8 L (13.0-17.5) gm/dL Hct 36.3 L (39.0-53.0) % MCV 104.2 H (80.0-100.0) fL PT 12.1 H (9.0-12.0) sec INR 1.2 H (<1.2) Potassium 3.3 L (3.5-5.1) mmol/L Glucose 111 H (74-99) mg/dL Ur Specific [place] (1.001-1.035) Urine Protein (Negative) 05/29/20 Range/Units 01:54 RBC (4.30-5.90) m/uL Hgb (13.0-17.5) gm/dL Hct (39.0-53.0) % MCV (80.0-100.0) fL PT (9.0-12.0) sec INR (<1.2) Potassium (3.5-5.1) mmol/L Glucose (74-99) mg/dL Ur Specific [place] 1.050 H (1.001-1.035) Urine Protein Trace H (Negative) Thrombosis Risk Factor Assmnt - DVT/VTE Prophylaxis DVT/VTE Prophylaxis: Pharmacologic Prophylaxis ordered - Choose All That Apply Each Factor Represents 1 point: Abnormal pulmonary function (COPD), Age 41-60 years, Swollen legs (current) Each Risk Factor Represents 3 Points: History of DVT/PE Thrombosis Risk Factor Assessment Total Risk Factor Score: 6 Thrombosis Risk Factor Assessment Level: High Risk Assessment and Plan (1) Bilateral lower extremity edema Current Visit: Yes Status: Acute Code(s): R60.0 - LOCALIZED EDEMA SNOMED Code(s): 573142485 (2) Fall Current Visit: Yes Status: Acute Code(s): W19.XXXA - UNSPECIFIED FALL, INITIAL ENCOUNTER SNOMED Code(s): 5228628 (3) Rib fracture Current Visit: Yes Status: Acute Code(s): S22.39XA - FRACTURE OF ONE RIB, UNSP SIDE, INIT FOR CLOS FX SNOMED Code(s): 95476926 Plan: 1. We'll restart home medications for blood pressure and anticoagulation. 2. Bilateral venous Doppler. 3. Continue cardiac diet. 4. We'll change from IV pain medication to oral pain medication. 5. We'll order labs for tomorrow and assess. 6. Continue to monitor vital signs. 7. We'll continue follow closely with possible discharge later today pending Doppler results Time with Patient: Greater than 30
[2020-05-29] MEDS: METOPROLOL TARTRATE 25 MG TAB PO SCH (09:51)
--- NOTE | 2020-05-29 10:03 | US ---
EXAMINATION TYPE: US venous doppler duplex LE DATE OF EXAM: 05/29/2020 9:41 AM COMPARISON: NONE CLINICAL HISTORY: Subtherapeutic INR with left lower extremity pain . Patient states having a recent hx of PE and DVT SIDE PERFORMED: Bilateral TECHNIQUE: The lower extremity deep venous system is examined utilizing real time linear array sonog emily with graded compression, doppler sonography and color-flow sonography. VESSELS IMAGED: External Iliac Vein (EIV) Common Femoral Vein Deep Femoral Vein Greater Saphenous Vein * Femoral Vein Popliteal Vein Small Saphenous Vein * Proximal Calf Veins (* superficial vessels) There is normal flow, compressibility, vascular waveforms. Right Leg: Negative for DVT Left Leg: Negative for DVT IMPRESSION: No evident deep venous thrombosis at or above the knees.
[2020-05-29] MEDS: HYDROcodone/APAP 10-325MG 1 EACH TAB PO PRN ×2 (10:57→19:59)
--- NOTE | 2020-05-29 11:03 | P.GSHP ---
History of Present Illness H&P Date: 05/29/20 Chief Complaint: Fall with rib fractures 59-year-old male was cleaning off his deck yesterday when he slipped on some dog feces and fell onto stairs. He remembers landing on his right side. He felt a braking sensation occur. Patient complaining of mild shortness of breath. Pain right chest slightly improved from yesterday. Patient also complaining of some abdominal bloating which he says is subacute. Patient complaining of left leg swelling as well for the last 2-3 weeks. History of previous DVT. Patient is on Coumadin. He had held his Coumadin recently because the INR was elevated. Here in the hospital INR was 1.2. Denies hitting head. No loss of conscio usness. CT brain, C-spine, abdomen and pelvis negative for acute injury. CT chest showed rib fractures, no pneumothorax, small effusion. Venous Doppler ordered which was negative lower extremities. - Review of Systems Comment: The patient denies any acute changes in vision or hearing, no dysphagia or odynophagia, no dysuria or hematuria, no headache, no runny nose, no rectal bleeding or melena, no unexplained weight loss Past Medical History Past Medical History: COPD, Hypertension, Musculoskeletal Disorder Additional Past Medical History / Comment(s): "broken back 01/06/19", "heart arrhythmia's," DVT right leg, PE History of Any Multi-Drug Resistant Organisms: None Reported Past Surgical History: Orthopedic Surgery Additional Past Surgical History / Comment(s): left clavicle, jaw, Past Anesthesia/Blood Transfusion Reactions: No Reported Reaction Past Psychological History: No Psychological Hx Reported Smoking Status: Current every day smoker Past Alcohol Use History: Daily, Occasional Additional Past Alcohol Use History / Comment(s): smoker for 40 years 5 cig/d Past Drug Use History: None Reported - Past Family History Sister(s) Family Medical History: Cancer Additional Family Medical History / Comment(s): 2 sisters from cancer Medications and Allergies Home Medications Medication Instructions Recorded Confirmed Type Metoprolol Tartrate [Lopressor] 25 mg PO QAM 11/07/17 05/29/20 History Lisinopril [Zestril] 5 mg PO DAILY 04/26/20 05/29/20 History Warfarin Sodium [Coumadin] 5 mg PO DAILY 05/29/20 05/29/20 History Allergies Allergy/AdvReac Type Severity Reaction Status Date / Time No Known Allergies Allergy Verified 05/29/20 08:25 Surgical - Exam Vital Signs Temp Pulse Resp BP Pulse Ox 98.0 F 70 18 102/68 98 05/28/20 23:10 05/28/20 23:10 05/28/20 23:10 05/28/20 23:10 05/28/20 23:10 Physical exam: General: Well-developed, well-nourished HEENT: Normocephalic, sclerae nonicteric, atraumatic Chest: Right lateral chest tenderness, breath sounds equal Abdomen: Nontender, nondistended Extremities: Bilateral lower extremity edema left greater than right Neuro: Alert and oriented Results - Labs 05/28/20 23:54 05/28/20 23:54 Abnormal Lab Results - Last 24 Hours (Table) 05/28/20 05/28/20 05/29/20 Range/Units 23:54 23:54 00:04 RBC 3.49 L (4.30-5.90) m/uL Hgb 11.8 L (13.0-17.5) gm/dL Hct 36.3 L (39.0-53.0) % MCV 104.2 H (80.0-100.0) fL PT 12.1 H (9.0-12.0) sec INR 1.2 H (<1.2) Potassium 3.3 L (3.5-5.1) mmol/L Glucose 111 H (74-99) mg/dL Ur Specific [place] (1.001-1.035) Urine Protein (Negative) 05/29/20 Range/Units 01:54 RBC (4.30-5.90) m/uL Hgb (13.0-17.5) gm/dL Hct (39.0-53.0) % MCV (80.0-100.0) fL PT (9.0-12.0) sec INR (<1.2) Potassium (3.5-5.1) mmol/L Glucose (74-99) mg/dL Ur Specific [place] 1.050 H (1.001-1.035) Urine Protein Trace H (Negative) Diabetes panel 05/28/20 Range/Units 23:54 Sodium 137 (137-145) mmol/L Potassium 3.3 L (3.5-5.1) mmol/L Chloride 98 (98-107) mmol/L Carbon Dioxide 28 (22-30) mmol/L BUN 14 (9-20) mg/dL Creatinine 0.78 (0.66-1.25) mg/dL Glucose 111 H (74-99) mg/dL Calcium 8.6 (8.4-10.2) mg/dL AST 52 (17-59) U/L ALT 21 (4-49) U/L Alkaline Phosphatase 113 (38-126) U/L Total Protein 6.8 (6.3-8.2) g/dL Albumin 3.9 (3.5-5.0) g/dL Calcium panel 05/28/20 Range/Units 23:54 Calcium 8.6 (8.4-10.2) mg/dL Albumin 3.9 (3.5-5.0) g/dL Pituitary panel 05/28/20 Range/Units 23:54 Sodium 137 (137-145) mmol/L Potassium 3.3 L (3.5-5.1) mmol/L Chloride 98 (98-107) mmol/L Carbon Dioxide 28 (22-30) mmol/L BUN 14 (9-20) mg/dL Creatinine 0.78 (0.66-1.25) mg/dL Glucose 111 H (74-99) mg/dL Calcium 8.6 (8.4-10.2) mg/dL Adrenal panel 05/28/20 Range/Units 23:54 Sodium 137 (137-145) mmol/L Potassium 3.3 L (3.5-5.1) mmol/L Chloride 98 (98-107) mmol/L Carbon Dioxide 28 (22-30) mmol/L BUN 14 (9-20) mg/dL Creatinine 0.78 (0.66-1.25) mg/dL Glucose 111 H (74-99) mg/dL Calcium 8.6 (8.4-10.2) mg/dL Total Bilirubin 0.7 (0.2-1.3) mg/dL AST 52 (17-59) U/L ALT 21 (4-49) U/L Alkaline Phosphatase 113 (38-126) U/L Total Protein 6.8 (6.3-8.2) g/dL Albumin 3.9 (3.5-5.0) g/dL Assessment and Plan (1) Rib fracture Narrative/Plan: 59-year-old male admitted after fall with right-sided rib fractures. Continue incentive spirometry. Continue analgesics. We'll repeat chest x-ray tomorrow morning. Possible discharge tomorrow. Current Visit: Yes Status: Acute Code(s): S22.39XA - FRACTURE OF ONE RIB, UNSP SIDE, INIT FOR CLOS FX SNOMED Code(s): 38847238
[2020-05-29] MEDS: KETOROLAC 30 MG/ML 1 ML VIAL IVP SCH ×3 (12:06→23:04)
[2020-05-29] MEDS: HEPARIN SODIUM,PORCINE 5,000 UNIT/ML 1 ML VIAL SQ SCH (17:26)
[2020-05-29] MEDS ORDERED: WARFARIN 5 MG TAB PO SCH (18:00)
[2020-05-29] MEDS: FAMOTIDINE 20 MG TAB PO SCH (19:59)
[2020-05-30] MEDS: HEPARIN SODIUM,PORCINE 5,000 UNIT/ML 1 ML VIAL SQ SCH ×2 (02:29→08:23)
[2020-05-30] MEDS: HYDROcodone/APAP 10-325MG 1 EACH TAB PO PRN ×2 (02:55→08:22)
[2020-05-30] MEDS ORDERED: Potassium Replacement Protocol 1 EACH MISC MISCELLANE PRN (03:01)
[2020-05-30 04:52] LABS: Basophils % (A) 0 %; Eosinophils # (A) 0.2 k/uL (0-0.7); Eosinophils % (A) 4 %; HCT 36.1 % (39.0-53.0); HGB 12.1 gm/dL (13.0-17.5); Lymphocytes # (A) 1.6 k/uL (1.0-4.8); Lymphocytes % (A) 34 %; MCH 35.8 pg (25.0-35.0); MCHC 33.6 g/dL (31.0-37.0); MCV 106.5 fL (80.0-100.0); Macrocytosis Moderate; Mean Platelet Volume 6.8; Monocytes # (A) 0.3 k/uL (0-1.0); Monocytes % (A) 7 %; Neutrophils # (A) 2.5 k/uL (1.3-7.7); Neutrophils % (A) 52 %; Platelet Count 302 k/uL (150-450); RBC 3.39 m/uL (4.30-5.90); RDW 13.9 % (11.5-15.5); WBC 4.7 k/uL (3.8-10.6)
[2020-05-30 05:00] LABS: Prothrombin Time 19.7 sec (9.0-12.0)
[2020-05-30 05:06] LABS: African American GFR (CKD) >90 (>60 ml/min/1.73 sqM); Anion Gap 6 mmol/L; Blood Urea Nitrogen 17 mg/dL (9-20); Calcium 8.4 mg/dL (8.4-10.2); Carbon Dioxide 30 mmol/L (22-30); Chloride 97 mmol/L (98-107); Glucose 96 mg/dL (74-99); Non-African American GFR(CKD) >90 (>60 ml/min/1.73 sqM); Potassium 3.6 mmol/L (3.5-5.1); Sodium 133 mmol/L (137-145)
[2020-05-30] MEDS: KETOROLAC 30 MG/ML 1 ML VIAL IVP SCH ×2 (05:17→11:15)
[2020-05-30] MEDS: POTASSIUM CHLORIDE ER 20 MEQ TAB.ER PO SCH ×2 (05:21→05:55)
[2020-05-30 07:57] VITALS: BP 134/81; PULSE 79; RESP 18; TEMP 97.8
[2020-05-30] MEDS: FAMOTIDINE 20 MG TAB PO SCH (08:22)
[2020-05-30] MEDS: METOPROLOL TARTRATE 25 MG TAB PO SCH (08:22)
--- NOTE | 2020-05-30 08:25 | XR ---
EXAMINATION TYPE: XR chest 2V DATE OF EXAM: 05/30/2020 COMPARISON: Prior chest x-ray 05/29/[address] 05/29/2020 HISTORY: Chest pain, trauma TECHNIQUE: Frontal and lateral views of the chest are obtained. FINDINGS: Postop changes in the left clavicle, old left-sided rib fractures appear healed as on prio r exam. No evident pneumothorax. There is some blunting the right costophrenic angle not seen on prio r exam. Right-sided rib fracture is present at the ninth rib laterally, additional fractures not as w ell seen, old right-sided rib fractures also present. The aorta is dense. Heart size is stable. Promi nent lung lines, increased AP diameter chest and flattening hemidiaphragms suggests underlying COPD. IMPRESSION: Small effusion and associated atelectasis, right-sided rib fractures as described in evelyn or report. Additional findings above.
[2020-05-30] MEDS ORDERED: DOCUSATE 100 MG CAP PO SCH (09:00)
[2020-05-30] MEDS ORDERED: LISINOPRIL 5 MG TAB PO SCH (09:00)
[2020-05-30] MEDS ORDERED: LIDOCAINE 5% PATCH TOPICAL SCH (10:00)
--- NOTE | 2020-05-30 10:45 | P.DS ---
<ChristalPratima Alejandra - Last Filed: 05/30/20 10:42> Providers Expected date of discharge: 05/30/20 Hospital Course: 59-year-old male who was admitted to hospital after he sustained a fall and landed on his right side. Patient was found to have right-sided rib fractures. He was admitted for observation. Patient's repeat chest x-ray is stable. His pain is controlled on oral medications. Vital signs are stable. He is stable for discharge home today. Patient was instructed to follow-up with his primary care physician post discharge. Please see EMR for further hospital course details. Discharge Diagnosis 1. Status post fall from standing 2. Right-sided rib fractures Nurse practitioner note has been reviewed by physician. Signing provider agrees with the documented findings, assessment, and plan of care. Patient Condition at Discharge: Stable Plan - Discharge Summary New Discharge Prescriptions: New Hydrocodone/Acetaminophen [[place] 5-325] 1 tab PO Q6HR PRN #10 tab PRN Reason: Pain Ibuprofen [Motrin] 600 mg PO Q8HR PRN #30 tab PRN Reason: Pain Continue Metoprolol Tartrate [Lopressor] 25 mg PO QAM Lisinopril [Zestril] 5 mg PO DAILY Warfarin Sodium [Coumadin] 5 mg PO DAILY Discharge Medication List Metoprolol Tartrate [Lopressor] 25 mg PO QAM 11/07/17 [History] Lisinopril [Zestril] 5 mg PO DAILY 04/26/20 [History] Warfarin Sodium [Coumadin] 5 mg PO DAILY 05/29/20 [History] Hydrocodone/Acetaminophen [[place] 5-325] 1 tab PO Q6HR PRN #10 tab 05/30/20 [Rx] Ibuprofen [Motrin] 600 mg PO Q8HR PRN #30 tab 05/30/20 [Rx] Follow up Appointment(s)/Referral(s): Sukhdev Scruggs Jr, [Doctor of Osteopathic Medicine] - 1-2 days (saturdayJune 01 at 3:15 bring ID and insurance card to appoinment) Patient Instructions/Handouts: Hydrocodone/Acetaminophen (By mouth), Ibuprofen (By mouth), Rib Fracture (DC) <John Bustamante - Last Filed: 05/30/20 11:44> Providers Date of admission: 05/29/20 02:48 Attending physician: John Bustamante Consults: 05/29/20 02:50 Consult Physician Stat Consulting Provider: Sukhdev Scruggs Jr Consult Reason/Comments: medical management Do you want consulting provider notified?: Yes, Notify in am 05/29/20 11:03 Consult to Anesthesia Routine Consulting Provider: Anesthesia,Services Consult Reason/Comments: Right-sided rib fractures Primary care physician: John Bustamante - Discharge Diagnosis(es) (1) Rib fracture Status: Acute Hospital Course: As above. Chest x-ray is stable with only a very small effusion noted. No pneumothorax seen. No significant shortness of breath. A is quite anxious for discharge. Will discharge home with plans for outpatient follow-up with his primary care physician.
== END 2020-05-30 11:31 | disposition home or self-care (01) ==
LOC: EC 22:57 → 5NMEDONC 05-29 02:48 → 1SOBS 05-29 10:47
PROVIDERS: ADMIT Surgery; ATTEND Surgery
DX: S22.41XA Multiple fractures of ribs, right side, initial encounter for closed fracture (principal); J98.11 Atelectasis; J90 Pleural effusion, not elsewhere classified; M19.012 Primary osteoarthritis, left shoulder; J44.9 Chronic obstructive pulmonary disease, unspecified; I10 Essential (primary) hypertension; I49.9 Cardiac arrhythmia, unspecified; M79.605 Pain in left leg; R60.0 Localized edema; F17.210 Nicotine dependence, cigarettes, uncomplicated; R14.0 Abdominal distension (gaseous); Z79.01 Long term (current) use of anticoagulants; Z79.899 Other long term (current) drug therapy; Y93.01 Activity, walking, marching and hiking; W10.9XXA Fall (on) (from) unspecified stairs and steps, initial encounter; Z86.711 Personal history of pulmonary embolism; Z87.81 Personal history of (healed) traumatic fracture; Z87.39 Personal history of other diseases of the musculoskeletal system and connective tissue; Z72.89 Other problems related to lifestyle; Z86.718 Personal history of other venous thrombosis and embolism; Z80.9 Family history of malignant neoplasm, unspecified; Z03.818 Encounter for observation for suspected exposure to other biological agents ruled out
CPT/HCPCS: 96372 ×2; 96375 ×2; 96376 ×2; 96374; 99285; 36415; 80053; 80048; 85025 ×2; 85610 ×2; 85730; 81003; 71045; 71046; 93970; 72125; 70450; 71260; 74177; G0378 ×3; G0480; U0003; J2270; J1644 ×2; J1885 ×2; J1170; Q9967; 80320

== ENCOUNTER 2020-06-13 23:50 | Emergency (ER) | payer OTHER ==
[2020-06-13 23:59] VITALS: RESP 18
[2020-06-14] MEDS ORDERED: PENICILLIN VK 500MG STARTER 4 TAB BTL PO STA (00:23)
--- NOTE | 2020-06-14 00:50 | ED ---
General Adult HPI - General Chief complaint: Extremity Problem,Nontraumatic Stated complaint: Leg pain Time Seen by Provider: 06/14/20 00:13 Source: patient Mode of arrival: ambulatory Limitations: no limitations - History of Present Illness Initial comments: 59-year-old male patient presents to the emergency department today with multiple complaints. He is reporting lower leg edema, right lower dental pain, and right upper quadrant abdominal pain. Patient states he has been having the leg swelling for the last 4 months ago has worsened over the last few days. Patient states he does have a history of DVT and takes Coumadin. States that he was seen and evaluated at [facility] last evening and did have ultrasounds which were negative for blood clot. States that he asked her antibiotics for his tooth however was discharged without them. He states that he has been having pain to the right upper quadrant abdomen for the last several days. Does report nausea. No vomiting. He is also reporting a lower dental pain, facial swelling. Believes he has a dental abscess. States he has felt feverish and chilled. Denies any nausea or vomiting. Denies trismus or difficulty swallowing. Patient does admit to drinking alcohol 2-3 days per week. Is a smoker. Patient denies any recent rash, cough, shortness of breath, chest pain, diarrhea, constipation, back pain, numbness, tingling, dizziness, weakness, hematuria, dysuria, urinary urgency, urinary frequency, headache, visual changes, or any other complaints. - Related Data Home Medications Medication Instructions Recorded Confirmed Metoprolol Tartrate [Lopressor] 25 mg PO QAM 11/07/17 05/29/20 lisinopriL [Zestril] 5 mg PO DAILY 04/26/20 05/29/20 Warfarin Sodium [Coumadin] 5 mg PO DAILY 05/29/20 05/29/20 Previous Rx's Medication Instructions Recorded Hydrocodone/Acetaminophen [[place] 1 tab PO Q6HR PRN #10 tab 05/30/20 5-325] Ibuprofen [Motrin] 600 mg PO Q8HR PRN #30 tab 05/30/20 Penicillin V Potassium [Pen Vee K] 500 mg PO Q6H #40 tablet 06/14/20 Allergies Allergy/AdvReac Type Severity Reaction Status Date / Time No Known Allergies Allergy Verified 06/13/20 23:59 Review of Systems ROS Statement: Those systems with pertinent positive or pertinent negative responses have been documented in the HPI. ROS Other: All systems not noted in ROS Statement are negative. Past Medical History Past Medical History: COPD, Hypertension, Musculoskeletal Disorder Additional Past Medical History / Comment(s): "broken back 01/06/19", "heart arrhythmia's," DVT right leg, PE History of Any Multi-Drug Resistant Organisms: None Reported Past Surgical History: Orthopedic Surgery Additional Past Surgical History / Comment(s): left clavicle, jaw, Past Anesthesia/Blood Transfusion Reactions: No Reported Reaction Past Psychological History: No Psychological Hx Reported Smoking Status: Current every day smoker Past Alcohol Use History: Daily, Occasional Past Drug Use History: None Reported - Past Family History Sister(s) Family Medical History: Cancer Additional Family Medical History / Comment(s): 2 sisters from cancer General Exam Limitations: no limitations General appearance: alert, in no apparent distress, other (This is a well- developed, well-nourished adult male patient in no acute distress. Vital signs upon presentation are temperature 98.6F, pulse 98, respirations 18, blood pressure 147/91, pulse ox 93% on room air.) Eye exam: Present: normal appearance, PERRL, EOMI. Absent: scleral icterus, conjunctival injection, periorbital swelling ENT exam: Present: normal oropharynx, mucous membranes moist, other (Right facial swelling, very poor dentition, multiple dental caries and missing teeth. There is evidence of gingival erythema or hyperplasia to the right lower dentition. There is no sign of drainable abscess.) Respiratory exam: Present: normal lung sounds bilaterally. Absent: respiratory distress, wheezes, rales, rhonchi, stridor Cardiovascular Exam: Present: regular rate, normal rhythm, normal heart sounds. Absent: systolic murmur, diastolic murmur, rubs, gallop, clicks GI/Abdominal exam: Present: soft, tenderness (Right upper quadrant), normal bowel sounds. Absent: distended, guarding, rebound, rigid Extremities exam: Present: full ROM, normal capillary refill, other (There is swelling to the lower legs and feet, nonpitting. Skin is pink, warm, dry. Cap refills less than 3 seconds. Pedal and posttibial pulses 2+ and equal.). Absent: tenderness, pedal edema, joint swelling, calf tenderness Neurological exam: Present: alert, oriented X3, CN II-XII intact Psychiatric exam: Present: normal affect, normal mood Skin exam: Present: warm, dry, intact, normal color. Absent: rash Course Vital Signs 06/13/20 23:53 Temperature 98.6 F Pulse Rate 98 Respiratory 18 Rate Blood Pressure 147/91 O2 Sat by Pulse 93 L Oximetry Medical Decision Making - Medical Decision Making 59-year-old male patient presents to the emergency department today with multiple complaints including right lower dental pain, right upper quadrant abdominal pain, and swelling to the lower extremities. Physical examination did reveal very poor dentition with likely dental abscess to the right side. There is no evidence of drainable abscess upon inspection. Abdomen did reveal some mild tenderness to the right upper quadrant. Negative Zafar sign. There is general edema to the lower legs and feet, nonpitting. Neurovascular status is intact. No evidence for cellulitis. Labs reviewed and were unremarkable. I did review records from [facility], they did perform ultrasound the right lower extremity which was negative for DVT. I did discuss findings and results with the patient. He'll be started on Pen-Vee K for dental abscess. Is instructed to follow up with dentist recent as possible. Is instructed to follow up with his primary care physician to discuss the leg swelling and abdominal pain in 1-2 days. Return parameters discussed in detail. He verbalizes understanding and agrees with this plan. - Lab Data Result diagrams: 06/14/20 00:42 06/14/20 00:42 Lab Results 06/14/20 06/14/20 06/14/20 Range/Units 00:42 00:42 00:42 WBC 6.0 (3.8-10.6) k/uL RBC 3.38 L (4.30-5.90) m/uL Hgb 11.4 L (13.0-17.5) gm/dL Hct 35.9 L (39.0-53.0) % MCV 106.3 H (80.0-100.0) fL MCH 33.9 (25.0-35.0) pg MCHC 31.9 (31.0-37.0) g/dL RDW 13.8 (11.5-15.5) % Plt Count 279 (150-450) k/uL Neutrophils % 60 % Lymphocytes % 23 % Monocytes % 10 % Eosinophils % 4 % Basophils % 1 % Neutrophils # 3.6 (1.3-7.7) k/uL Lymphocytes # 1.4 (1.0-4.8) k/uL Monocytes # 0.6 (0-1.0) k/uL Eosinophils # 0.2 (0-0.7) k/uL Basophils # 0.1 (0-0.2) k/uL Macrocytosis Moderate PT 14.9 H (9.0-12.0) sec INR 1.5 H (<1.2) APTT 34.3 H (22.0-30.0) sec Sodium 137 (137-145) mmol/L Potassium 3.5 (3.5-5.1) mmol/L Chloride 101 (98-107) mmol/L Carbon Dioxide 28 (22-30) mmol/L Anion Gap 8 mmol/L BUN 14 (9-20) mg/dL Creatinine 0.73 (0.66-1.25) mg/dL Est GFR (CKD-EPI)AfAm >90 (>60 ml/min/1.73 sqM) Est GFR (CKD-EPI)NonAf >90 (>60 ml/min/1.73 sqM) Glucose 104 H (74-99) mg/dL Calcium 8.6 (8.4-10.2) mg/dL Total Bilirubin 0.5 (0.2-1.3) mg/dL AST 27 (17-59) U/L ALT 12 (4-49) U/L Alkaline Phosphatase 111 (38-126) U/L Total Protein 6.8 (6.3-8.2) g/dL Albumin 3.8 (3.5-5.0) g/dL Amylase 35 (30-110) U/L Lipase 25 (23-300) U/L Disposition Clinical Impression: Leg edema, Abdominal pain, Dental abscess Disposition: HOME SELF-CARE Condition: Good Instructions (If sedation given, give patient instructions): Dental Abscess (ED), Leg Edema (ED), Abdominal Pain (ED) Additional Instructions: Follow-up with your primary care physician for recheck in 1-2 days. Return to the emergency department immediately for any new, worsening, or concerning symptoms. Prescriptions: Penicillin V Potassium [Pen Vee K] 500 mg PO Q6H #40 tablet Is patient prescribed a controlled substance at d/c from ED?: No Referrals: Sukhdev Scruggs Jr, [Primary Care Provider] - 1-2 days Time of Disposition: 01:46
[2020-06-14 00:56] LABS: Basophils # (A) 0.1 k/uL (0-0.2); Basophils % (A) 1 %; Eosinophils # (A) 0.2 k/uL (0-0.7); Eosinophils % (A) 4 %; HCT 35.9 % (39.0-53.0); HGB 11.4 gm/dL (13.0-17.5); Lymphocytes # (A) 1.4 k/uL (1.0-4.8); Lymphocytes % (A) 23 %; MCH 33.9 pg (25.0-35.0); MCHC 31.9 g/dL (31.0-37.0); MCV 106.3 fL (80.0-100.0); Macrocytosis Moderate; Mean Platelet Volume 7.2; Monocytes # (A) 0.6 k/uL (0-1.0); Monocytes % (A) 10 %; Neutrophils # (A) 3.6 k/uL (1.3-7.7); Neutrophils % (A) 60 %; Platelet Count 279 k/uL (150-450); RBC 3.38 m/uL (4.30-5.90); RDW 13.8 % (11.5-15.5)
[2020-06-14 01:06] LABS: INR 1.5 (<1.2); Partial Thromboplastin Time 34.3 sec (22.0-30.0); Prothrombin Time 14.9 sec (9.0-12.0)
[2020-06-14 01:11] LABS: ALT 12 U/L (4-49); AST 27 U/L (17-59); African American GFR (CKD) >90 (>60 ml/min/1.73 sqM); Albumin 3.8 g/dL (3.5-5.0); Alkaline Phosphatase 111 U/L (38-126); Amylase 35 U/L (30-110); Anion Gap 8 mmol/L; Blood Urea Nitrogen 14 mg/dL (9-20); Calcium 8.6 mg/dL (8.4-10.2); Carbon Dioxide 28 mmol/L (22-30); Chloride 101 mmol/L (98-107); Glucose 104 mg/dL (74-99); Non-African American GFR(CKD) >90 (>60 ml/min/1.73 sqM); Potassium 3.5 mmol/L (3.5-5.1); Sodium 137 mmol/L (137-145); Total Bilirubin 0.5 mg/dL (0.2-1.3); Total Protein 6.8 g/dL (6.3-8.2)
[2020-06-14 02:12] VITALS: BP 149/91; PULSE 87; TEMP 98
== END 2020-06-14 02:13 | disposition home or self-care (01) ==
LOC: EC 23:50
DX: R60.0 Localized edema (principal); R10.11 Right upper quadrant pain; K04.7 Periapical abscess without sinus; M79.606 Pain in leg, unspecified; I10 Essential (primary) hypertension; F17.200 Nicotine dependence, unspecified, uncomplicated; Z86.718 Personal history of other venous thrombosis and embolism; Z86.711 Personal history of pulmonary embolism; Z79.01 Long term (current) use of anticoagulants; Z79.899 Other long term (current) drug therapy
CPT/HCPCS: 36415; 80053; 82150; 83690; 85025; 85610; 85730; 99284

== ENCOUNTER 2020-08-17 17:44 | Inpatient (IN) | payer OTHER ==
[2020-08-17] MEDS ORDERED: LORazepam 2 MG/ML INJ IM STA (18:01)
[2020-08-17] MEDS ORDERED: SODIUM CHLORIDE 0.9% 1,000 ML IV STA ×2 (18:02)
[2020-08-17] MEDS ORDERED: LORazepam 2 MG/ML INJ IV STA ×2 (18:02→19:37)
[2020-08-17] MEDS ORDERED: levETIRAcetam IV 1,500 MG in SALINE 1 100ML.BAG IVPB STA (18:02)
--- NOTE | 2020-08-17 18:11 | ED ---
Seizure HPI - General Chief Complaint: Fall Stated Complaint: FALL Time Seen by Provider: 08/17/20 18:02 Source: EMS, RN notes reviewed, old records reviewed Mode of arrival: EMS Limitations: no limitations, altered mental status, physical limitation - History of Present Illness Initial Comments: This is a 59-year-old male to the ER for evaluation patient presents today for seizure activity. No history of drug and alcohol abuse or sprain secondarily to persistent seizure here in the ER. Patient has no recent travel history or sick contacts patient was placed in custodial unsure of how long patient has been in custodial MD Complaint: seizure -: minutes(s) Description of Episode: loss of consciousness, tonic-clonic movement, post-event confusion -: minutes(s) Witnessed: yes - by bystander, yes - by EMS Trauma: No Seizure History: history of withdrawal seizures Place: other (Patient was incarcerated) Possible Precipitating Event: drug use, alcohol withdrawal Associated Symptoms: confusion Treatments Prior to Arrival: none - Related Data Home Medications Medication Instructions Recorded Confirmed Metoprolol Tartrate [Lopressor] 25 mg PO QAM 11/07/17 05/29/20 lisinopriL [Zestril] 5 mg PO DAILY 04/26/20 05/29/20 Warfarin Sodium [Coumadin] 5 mg PO DAILY 05/29/20 05/29/20 Previous Rx's Medication Instructions Recorded Hydrocodone/Acetaminophen [[place] 1 tab PO Q6HR PRN #10 tab 05/30/20 5-325] Ibuprofen [Motrin] 600 mg PO Q8HR PRN #30 tab 05/30/20 Penicillin V Potassium [Pen Vee K] 500 mg PO Q6H #40 tablet 06/14/20 Allergies Allergy/AdvReac Type Severity Reaction Status Date / Time No Known Allergies Allergy Verified 06/13/20 23:59 Review of Systems ROS Statement: Those systems with pertinent positive or pertinent negative responses have been documented in the HPI. ROS Other: All systems not noted in ROS Statement are negative. Past Medical History Past Medical History: COPD, Hypertension, Musculoskeletal Disorder Additional Past Medical History / Comment(s): "broken back 01/06/19", "heart arrhythmia's," DVT right leg, PE History of Any Multi-Drug Resistant Organisms: None Reported Past Surgical History: Orthopedic Surgery Additional Past Surgical History / Comment(s): left clavicle, jaw, Past Anesthesia/Blood Transfusion Reactions: No Reported Reaction Past Psychological History: No Psychological Hx Reported Smoking Status: Current every day smoker Past Alcohol Use History: Daily, Occasional Past Drug Use History: Marijuana, Methamphetamine, Opiates - Past Family History Sister(s) Family Medical History: Cancer Additional Family Medical History / Comment(s): 2 sisters from cancer General Exam Limitations: no limitations General appearance: alert, in no apparent distress Head exam: Present: atraumatic, normocephalic, normal inspection Eye exam: Present: normal appearance, PERRL, EOMI. Absent: scleral icterus, conjunctival injection, periorbital swelling ENT exam: Present: normal exam, mucous membranes moist Neck exam: Present: normal inspection. Absent: tenderness, meningismus, lymphadenopathy Respiratory exam: Present: normal lung sounds bilaterally. Absent: respiratory distress, wheezes, rales, rhonchi, stridor Cardiovascular Exam: Present: regular rate, normal rhythm, normal heart sounds. Absent: systolic murmur, diastolic murmur, rubs, gallop, clicks GI/Abdominal exam: Present: soft, normal bowel sounds. Absent: distended, tenderness, guarding, rebound, rigid Extremities exam: Present: normal inspection, full ROM, normal capillary refill. Absent: tenderness, pedal edema, joint swelling, calf tenderness Back exam: Present: normal inspection Neurological exam: Present: alert, oriented X3, CN II-XII intact Psychiatric exam: Present: normal affect, normal mood Skin exam: Present: warm, dry, intact, normal color. Absent: rash Course Vital Signs 08/17/20 17:52 Temperature 97.7 F Pulse Rate 66 Respiratory 18 Rate Blood Pressure 125/88 O2 Sat by Pulse 100 Oximetry - Reevaluation(s) Reevaluation #1: 08/17/20 19:00 Medical record is reviewed Reevaluation #2: 08/17/20 19:00 Patient having active seizure here in the ER given Ativan antiepileptic medication Reevaluation #3: 08/17/20 19:00 Patient remains postictal - Consultations Consultation #1: Spoke with Dr. Anne to admit this patient Medical Decision Making - Medical Decision Making 59 male DF for seizure, patient will be admitted for seizure control and evaluation pending DTs - Lab Data Result diagrams: 08/17/20 18:05 08/17/20 18:05 Lab Results 08/17/20 08/17/20 08/17/20 Range/Units 18:05 18:05 18:13 WBC 6.7 (3.8-10.6) k/uL RBC 4.88 (4.30-5.90) m/uL Hgb 16.4 D (13.0-17.5) gm/dL Hct 53.8 H (39.0-53.0) % MCV 110.2 H (80.0-100.0) fL MCH 33.5 (25.0-35.0) pg MCHC 30.4 L (31.0-37.0) g/dL RDW 12.2 (11.5-15.5) % Plt Count 312 (150-450) k/uL Neutrophils % 82 % Lymphocytes % 15 % Monocytes % 2 % Eosinophils % 1 % Basophils % 0 % Neutrophils # 5.5 (1.3-7.7) k/uL Lymphocytes # 1.0 (1.0-4.8) k/uL Monocytes # 0.1 (0-1.0) k/uL Eosinophils # 0.1 (0-0.7) k/uL Basophils # 0.0 (0-0.2) k/uL Hypochromasia Moderate Macrocytosis Marked A Sodium 141 (137-145) mmol/L Potassium 5.0 (3.5-5.1) mmol/L Chloride 101 (98-107) mmol/L Carbon Dioxide 22 (22-30) mmol/L Anion Gap 18 mmol/L BUN 15 (9-20) mg/dL Creatinine 0.85 (0.66-1.25) mg/dL Est GFR (CKD-EPI)AfAm >90 (>60 ml/min/1.73 sqM) Est GFR (CKD-EPI)NonAf >90 (>60 ml/min/1.73 sqM) Glucose 328 H (74-99) mg/dL Calcium 10.2 (8.4-10.2) mg/dL Total Bilirubin 0.4 (0.2-1.3) mg/dL AST 35 (17-59) U/L ALT 20 (4-49) U/L Alkaline Phosphatase 105 (38-126) U/L Total Protein 8.7 H (6.3-8.2) g/dL Albumin 5.0 (3.5-5.0) g/dL Urine Color Yellow Urine Appearance Clear (Clear) Urine pH 5.5 (5.0-8.0) Ur Specific [place] 1.026 (1.001-1.035) Urine Protein Negative (Negative) Urine Glucose (UA) 4+ H (Negative) Urine Ketones Negative (Negative) Urine Blood Negative (Negative) Urine Nitrite Negative (Negative) Urine Bilirubin Negative (Negative) Urine Urobilinogen <2.0 (<2.0) mg/dL Ur Leukocyte Esterase Negative (Negative) Salicylates <1.0 mg/dL Urine Opiates Screen Not Detected (NotDetected) Ur Oxycodone Screen Not Detected (NotDetected) Urine Methadone Screen Not Detected (NotDetected) Ur Propoxyphene Screen Not Detected (NotDetected) Acetaminophen <10.0 ug/mL Ur Barbiturates Screen Not Detected (NotDetected) U Tricyclic Antidepress Not Detected (NotDetected) Ur Phencyclidine Scrn Not Detected (NotDetected) Ur Amphetamines Screen Detected H (NotDetected) U Methamphetamines Scrn Detected H (NotDetected) U Benzodiazepines Scrn Detected H (NotDetected) Urine Cocaine Screen Not Detected (NotDetected) U Marijuana (THC) Screen Not Detected (NotDetected) Serum Alcohol <10 mg/dL Critical Care Time Critical Care Time: Yes Total Critical Care Time: 31 Disposition Clinical Impression: Seizure, Alcohol withdrawal, Delirium tremens Disposition: ADMITTED IP TO THIS [facility] Condition: Serious Is patient prescribed a controlled substance at d/c from ED?: No Referrals: Sukhdev Scruggs Jr, DO [Primary Care Provider] - 1-2 days
[2020-08-17 18:17] LABS: Appearance,Urine Clear (Clear); Bilirubin,Urine Negative (Negative); Blood,Urine Negative (Negative); Color,Urine Yellow; Glucose,Urine (UA) 4+ (Negative); Ketones,Urine Negative (Negative); Leukocyte Esterase,Urine Negative (Negative); Nitrite,Urine Negative (Negative); PH, Urine 5.5 (5.0-8.0); Protein,Urine Negative (Negative); Specific Gravity,Urine 1.026 (1.001-1.035); Urobilinogen,Urine <2.0 mg/dL (<2.0)
[2020-08-17 18:26] LABS: ALT 20 U/L (4-49); AST 35 U/L (17-59); Acetaminophen <10.0 ug/mL; African American GFR (CKD) >90 (>60 ml/min/1.73 sqM); Alcohol <10 mg/dL; Alkaline Phosphatase 105 U/L (38-126); Anion Gap 18 mmol/L; Blood Urea Nitrogen 15 mg/dL (9-20); Calcium 10.2 mg/dL (8.4-10.2); Carbon Dioxide 22 mmol/L (22-30); Chloride 101 mmol/L (98-107); Glucose 328 mg/dL (74-99); Non-African American GFR(CKD) >90 (>60 ml/min/1.73 sqM); Salicylate <1.0 mg/dL; Sodium 141 mmol/L (137-145); Total Bilirubin 0.4 mg/dL (0.2-1.3); Total Protein 8.7 g/dL (6.3-8.2)
[2020-08-17 18:30] LABS: Basophils % (A) 0 %; Eosinophils # (A) 0.1 k/uL (0-0.7); Eosinophils % (A) 1 %; HCT 53.8 % (39.0-53.0); Hypochromasia Moderate; Lymphocytes % (A) 15 %; MCH 33.5 pg (25.0-35.0); MCHC 30.4 g/dL (31.0-37.0); MCV 110.2 fL (80.0-100.0); Macrocytosis Marked; Mean Platelet Volume 7.6; Monocytes # (A) 0.1 k/uL (0-1.0); Monocytes % (A) 2 %; Neutrophils # (A) 5.5 k/uL (1.3-7.7); Neutrophils % (A) 82 %; Platelet Count 312 k/uL (150-450); RBC 4.88 m/uL (4.30-5.90); RDW 12.2 % (11.5-15.5); WBC 6.7 k/uL (3.8-10.6)
[2020-08-17 18:35] LABS: Amphetamine Screen,Urine Detected (NotDetected); Cocaine Screen,Urine Not Detected (NotDetected); Opiate Screen,Urine Not Detected (NotDetected); Phencyclidine Screen,Urine Not Detected (NotDetected)
[2020-08-17 18:36] LABS: Barbiturate Screen,Urine Not Detected (NotDetected); Benzodiazepines Screen,Urine Detected (NotDetected); Methadone Screen, Urine Not Detected (NotDetected); Oxycodone Screen, Urine Not Detected (NotDetected); Tricyclic Antidepressant,Urine Not Detected (NotDetected); Urn Cannabinoid Scrn Not Detected (NotDetected)
[2020-08-17 18:42] LABS: HGB 16.4 gm/dL (13.0-17.5)
[2020-08-17] MEDS ORDERED: LORazepam 2 MG/ML INJ IV PRN ×2 (18:49→19:37)
[2020-08-17] MEDS ORDERED: THIAMINE 100 MG/ML 2 ML VIAL IM STA (18:49)
[2020-08-17] MEDS ORDERED: SODIUM CHLORIDE 0.9% 1,000 ML IV ONE (18:49)
[2020-08-17] MEDS: LORazepam 2 MG/ML INJ IV PRN ×2 (20:01→22:53)
[2020-08-17 20:42] LABS: Glucose,Whole Blood 185 mg/dL (75-99)
[2020-08-17] MEDS: DIAZEPAM 5 MG/ML 2 ML INJ IVP PRN (20:52)
[2020-08-18] MEDS: DIAZEPAM 5 MG/ML 2 ML INJ IVP PRN (00:57)
[2020-08-18] MEDS ORDERED: levETIRAcetam IV 1,000 MG in SALINE 1 100ML.BAG IVPB SCH (06:00)
[2020-08-18] MEDS: THIAMINE 100 MG TAB PO SCH ×2 (06:25→17:46)
[2020-08-18 06:31] LABS: Glucose,Whole Blood 84 mg/dL (75-99)
[2020-08-18] MEDS: FOLIC ACID 1 MG TAB PO SCH (09:01)
[2020-08-18] MEDS: CYANOCOBALAMIN 500 MCG TAB PO SCH (09:01)
[2020-08-18 09:44] LABS: African American GFR (CKD) >90 (>60 ml/min/1.73 sqM); Anion Gap 5 mmol/L; Blood Urea Nitrogen 12 mg/dL (9-20); Carbon Dioxide 30 mmol/L (22-30); Chloride 105 mmol/L (98-107); Glucose 96 mg/dL (74-99); Non-African American GFR(CKD) >90 (>60 ml/min/1.73 sqM); Potassium 3.7 mmol/L (3.5-5.1); Sodium 140 mmol/L (137-145)
--- NOTE | 2020-08-18 10:18 | P.CNNES ---
History of Present Illness Consult date: 08/18/20 Requesting physician: Madhu Song Reason for Consult: seizure History of Present Illness: This is a 59-year-old right-handed gentleman with medical history of hypertension that presented to the emergency department on 08/17/2020 for seizure activity. History was obtained from officer at room as well as patient. Patient doesn't recall what happened. Per the officer who was at at bedside he stated that the patient was in half-way for the last 3 days and the yesterday the patient had 3 episodes of shaking of all extremities lasting less than a minute. He said that he didn't have any stiffening of the extremities but was randomly shaking of all extremities., Eye rolling back. There is no foaming around the mouth. There is no urinary or bowel incontinence associated with these episodes. The first episode lasted about 10 seconds then it took him about a minute to regain consciousness. Then he went to the second one then the third one.. Between episodes the second to the third episode that was a little bit longer took a couple of minutes for him to regain consciousness. Per the officer he knows the patient well and he stated that the patient has never had that these seizure-like activities in the past. According to patient and his last drink was this past Saturday, total about close to 4 days ago. He drinks 5 cans of beers daily for more than 40 years. Patient denies any history of seizures in the past. Patient denies any fever, chest pain, shortness of breath. Patient is not on home seizure medication. Patient denies any stiffness in the neck. In the ED the patient was loaded with Keppra 1500 mg once then was started on 1000 mg every 12 hours. He was given a total of 5 mg of Ativan. Regarding the patient's history he was a product of normal vaginal delivery term no complication. There is no family history of seizures. He smokes 1 pack a day for the last 40 years. Per the officer the patient the uses the amphetamine, methamphetamine and benzos. Workup in the hospital consisted of: Initial vital signs was blood pressure of 125/88, heart rate of 66, respiratory of 18, temperature of 97.7 Fahrenheit oral and pulse ox of 100% at room air. Initial POC glucose was 185. Patient had an EKG was withdrew reported as normal sinus rhythm. Ventricular rate of 82. EKG was read as normal. MCV of 110. UA was negative for urinary tract infection Urine drug screen was positive for amphetamine, methamphetamine, benzodiazepine. The serum alcohol was less than 10. Acetaminophen was less than 10. Patient had a CT of the head on 05/29/2020 after a mechanical fall without loss of consciousness. At that time his serum all call level was 38. The CT of the head was read as negative. I personally reviewed the CT of the brain and I felt there is no acute ischemia, hemorrhage and there is no encephalomalacia that was appreciable. CT of the cervical spine was read as spondylitic changes in the low cervical spine. No fracture seen. Review of Systems Review of system: The 12 point system was reviewed and apparent positive and negative per HPI. Past Medical History Past Medical History: COPD, Diabetes Mellitus, Hypertension, Musculoskeletal Disorder, Pneumonia, Pulmonary Embolus (PE) Additional Past Medical History / Comment(s): "broken back 01/06/19", "heart arrhythmia's," DVT right leg, PE History of Any Multi-Drug Resistant Organisms: None Reported Past Surgical History: Orthopedic Surgery Additional Past Surgical History / Comment(s): left clavicle, jaw, Past Anesthesia/Blood Transfusion Reactions: No Reported Reaction Past Psychological History: Anxiety, Depression, Schizophrenia Smoking Status: Current every day smoker Past Alcohol Use History: Abuse, Daily, Heavy Additional Past Alcohol Use History / Comment(s): Pt states he smoke 2 pack of cig a day. cociane use 2 years ago. 08/12/20 use of Methemphetamises; opiates Past Drug Use History: Cocaine, Marijuana, Methamphetamine, Opiates - Past Family History Sister(s) Family Medical History: Cancer Additional Family Medical History / Comment(s): 2 sisters from cancer Medications and Allergies Home Medications Medication Instructions Recorded Confirmed Type Metoprolol Tartrate [Lopressor] 25 mg PO BID 11/07/17 08/17/20 History lisinopriL [Zestril] 5 mg PO DAILY 04/26/20 08/17/20 History Warfarin Sodium [Coumadin] 5 mg PO HS 05/29/20 08/17/20 History Albuterol Nebulized [Ventolin 2.5 mg INHALATION RT-TID 08/17/20 08/17/20 History Nebulized] Amoxic-Pot Clav 875-125Mg 1 tab PO BID 08/17/20 08/17/20 History [Augmentin 875-125] Aspirin 650 mg PO TID PRN 08/17/20 08/17/20 History Azithromycin [Zithromax] 500 mg PO HS 08/17/20 08/17/20 History Diazepam [Valium] 10 mg PO HS 08/17/20 08/17/20 History predniSONE [Deltasone] 40 mg PO DAILY 08/17/20 08/17/20 History Allergies Allergy/AdvReac Type Severity Reaction Status Date / Time No Known Allergies Allergy Verified 08/17/20 20:07 Physical Examination - Vital Signs Vital Signs: Vital Signs Temp Pulse Pulse Resp BP BP BP 08/18/20 04:00 71 17 117/73 08/18/20 00:00 86 17 120/77 08/17/20 20:04 87 18 129/85 08/17/20 20:00 98 F 91 17 137/77 08/17/20 19:19 82 18 126/79 08/17/20 17:52 97.7 F 66 18 125/88 Pulse Ox 08/18/20 04:00 95 08/18/20 00:00 96 08/17/20 20:04 99 08/17/20 20:00 98 08/17/20 19:19 99 08/17/20 17:52 100 Intake and Output 08/17/20 08/18/20 08/18/20 22:59 06:59 14:59 Output Total 400 250 Balance -400 -250 Output: Urine 400 250 Other: Weight 77.111 kg 87.5 kg GENERAL: The patient is lying in bed and is not in acute distress. CHEST: The heart rate is regular rate rhythm. No murmurs to auscultation. No carotid bruit bilaterally. LUNG: Clear to auscultation bilaterally no wheezing noted throughout. Not labored breathing. ABDOMEN/GI: Bowel sounds present in all 4 quadrants. No tenderness to palpation throughout. NEUROLOGICAL: Higher mental function: The patient is drowsy but awakeable to voice, alert, oriented to self, place and time. Patient is following commands. No aphasia and no neglect. Cranial nerves: The pupils are round, equal (4mm bilaterally) and reactive to light and accommodation. Visual arauz are full to confrontation throughout. Extraocular movement is intact no nystagmus is noted. Facial sensation is normal to touch throughout. The facial strength is normal throughout. Hearing is normal bilaterally to hand rub. Tongue is midline and moved [id number] without any difficulty. No dysarthria is noted. Shoulder shrug is normal bilaterally. Motor: Gait is defered. The strength is 5 over 5 throughout. Normal tone and bulk. Cerebellum: Normal finger to nose bilaterally. Sensation: Sensation is normal to touch throughout. Reflexes (right/left): 2+ throughout. Plantars are downgoing bilaterally. Results AST of 35, ALTs of 20. - Laboratory Findings CBC and BMP: 08/17/20 18:05 08/18/20 08:55 Abnormal Lab Findings: Abnormal Labs 08/17/20 08/17/20 08/17/20 18:05 18:05 18:13 Hct 53.8 H MCV 110.2 H MCHC 30.4 L Macrocytosis Marked A Glucose 328 H POC Glucose (mg/dL) Total Protein 8.7 H Urine Glucose (UA) 4+ H Ur Amphetamines Screen Detected H U Methamphetamines Scrn Detected H U Benzodiazepines Scrn Detected H 08/17/20 20:41 Hct MCV MCHC Macrocytosis Glucose POC Glucose (mg/dL) 185 H Total Protein Urine Glucose (UA) Ur Amphetamines Screen U Methamphetamines Scrn U Benzodiazepines Scrn Assessment and Plan Assessment: Seizure possibly due to delerium tremens from alcohol withdrawal Macrocytic anemia likely from alcohol use Alcohol use Delirium tremens Tobacco use Hypertension Plan: In the ED the patient was started on Keppra 1000 mg every 12 hours. I'll decrease it to 500 mg twice a day since she was not on any seizure medication prior to this. Ordered routine EEG. Because of the patient had trauma when the seizure, I recommend the CT of the head. Placed him on vitamin B-12 thousand micrograms daily and folic acid 1mg daily. CHECK his also vitamin B12 level as well as folate. Continue thiamine 100 mg twice a day. He is on Ativan 1 mg every 1 hour as needed for CIWA protocol. And we'll defer the management to the primary team. Patient was counseled on all call cessation as well as tobacco cessation. Patient to avoid the driving for 6 month until seizure-free per [facility]. He is to avoid the [place], avoid swimming unassisted and avoid heavy machinery. Thank you for the consult. Miah Pastor M.D. Neuro-hospitalist Time with Patient: Greater than 30
[2020-08-18 11:35] LABS: Glucose,Whole Blood 70 mg/dL (75-99)
--- NOTE | 2020-08-18 12:03 | CT ---
EXAMINATION TYPE: CT brain wo con DATE OF EXAM: 08/18/2020 COMPARISON: 05/28/2020 INDICATION: Seizure, ETOH and head trauma DLP: 1201.4 mGycm, Automated exposure control for dose reduction was used. CONTRAST: None CT of the brain is performed utilizing 3 mm thick sections through the posterior fossa and 3 mm thick sections through the remaining calvarium. Study is performed within 24 hours of arrival to the hosp [facility]. No abnormal hyperdensity is present to suggest an acute intracranial hemorrhage. No mass lesion is evident. No acute infarcts are evident. Ventricles and sulci are appropriate for the patient age. Paranasal sinuses and mastoid air cells within the [id number] are clear. IMPRESSIONS: 1. No acute intracranial process.
[2020-08-18 12:05] LABS: Glucose,Whole Blood 134 mg/dL (75-99)
[2020-08-18] MEDS ORDERED: Potassium Replacement Protocol 1 EACH MISC MISCELLANE PRN (13:19)
--- NOTE | 2020-08-18 13:19 | P.HPIM ---
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 Officer at bedside reports all extremities were randomly shaking, without stiffening, without incontinence of urine or bowel movement. Officer reports patient received Valium. Apparently this is a new onset of seizures. Patient was unable to disclose when his last drink was and how much he drinks per day. Denies any fevers or chills. Denies cough or congestion. Reports nausea and vomiting, no abdominal pain. Denies chest pain, palpitations or shortness of breath. Keppra initiated in the ER along with Ativan. Vital signs stable on admission, afebrile, normal WBC, EKG reporting normal sinus rhythm. Hemoglobin 16.4, platelets 312, MCV 110.2. Chemistry unremarkable with the exception of hyperglycemia, blood sugar in the 300s on admission currently 90s to low 100s. UA negative. Toxicology screen detected amphetamines, methamphetamines and benzodiazepines. Serum alcohol less than 10. Acetaminophen less than 10. Reported sustaining a fall, hitting his head without syncope or near syncope. Brain CT reported no acute intracranial process. Review of Systems ROS Statement: Those systems with pertinent positive or pertinent negative responses have been documented in the HPI. ROS Other: All systems not noted in ROS Statement are negative. Past Medical History Past Medical History: COPD, Diabetes Mellitus, Hypertension, Musculoskeletal Di sorder, Pneumonia, Pulmonary Embolus (PE) Additional Past Medical History / Comment(s): "broken back 01/06/19", "heart arrhythmia's," DVT right leg, PE History of Any Multi-Drug Resistant Organisms: None Reported Past Surgical History: Orthopedic Surgery Additional Past Surgical History / Comment(s): left clavicle, jaw, Past Anesthesia/Blood Transfusion Reactions: No Reported Reaction Past Psychological History: Anxiety, Depression, Schizophrenia Smoking Status: Current every day smoker Past Alcohol Use History: Abuse, Daily, Heavy Additional Past Alcohol Use History / Comment(s): Pt states he smoke 2 pack of cig a day. cociane use 2 years ago. 08/12/20 use of Methemphetamises; opiates Past Drug Use History: Cocaine, Marijuana, Methamphetamine, Opiates - Past Family History Sister(s) Family Medical History: Cancer Additional Family Medical History / Comment(s): 2 sisters from cancer Medications and Allergies Home Medications Medication Instructions Recorded Confirmed Type Metoprolol Tartrate [Lopressor] 25 mg PO BID 11/07/17 08/17/20 History lisinopriL [Zestril] 5 mg PO DAILY 04/26/20 08/17/20 History Warfarin Sodium [Coumadin] 5 mg PO HS 05/29/20 08/17/20 History Albuterol Nebulized [Ventolin 2.5 mg INHALATION RT-TID 08/17/20 08/17/20 History Nebulized] Amoxic-Pot Clav 875-125Mg 1 tab PO BID 08/17/20 08/17/20 History [Augmentin 875-125] Aspirin 650 mg PO TID PRN 08/17/20 08/17/20 History Azithromycin [Zithromax] 500 mg PO HS 08/17/20 08/17/20 History Diazepam [Valium] 10 mg PO HS 08/17/20 08/17/20 History predniSONE [Deltasone] 40 mg PO DAILY 08/17/20 08/17/20 History Allergies Allergy/AdvReac Type Severity Reaction Status Date / Time No Known Allergies Allergy Verified 08/17/20 20:07 Physical Exam Vitals: Vital Signs Temp Pulse Pulse Resp BP BP BP 08/18/20 04:00 71 17 117/73 08/18/20 00:00 86 17 120/77 08/17/20 20:04 87 18 129/85 08/17/20 20:00 98 F 91 17 137/77 08/17/20 19:19 82 18 126/79 08/17/20 17:52 97.7 F 66 18 125/88 Pulse Ox 08/18/20 04:00 95 08/18/20 00:00 96 08/17/20 20:04 99 08/17/20 20:00 98 08/17/20 19:19 99 08/17/20 17:52 100 Intake and Output 08/17/20 08/18/20 08/18/20 22:59 06:59 14:59 Intake Total 120 Output Total 400 250 Balance -400 -250 120 Intake: Oral 120 Output: Urine 400 250 Other: # Voids 0 Weight 77.111 kg 87.5 kg PHYSICAL EXAM: VITAL SIGNS: As above GENERAL: Lying in bed sleeping, drowsy HEENT: Conjunctivae normal. eyes normal. NECK: No JVD. No thyroid enlargement. No LNs CARDIOVASCULAR: S1, S2 regular.. No murmur RESPIRATION: Breath sounds diminished in the bases. No rhonchi or crackles. No bronchial breathing. ABDOMEN: Soft, nontender . No guarding. no masses palpable. No ascites, No hepatosplenomegaly.Bowel sounds heard. LEGS: No edema. no swelling PSYCHIATRY: Alert and oriented X3, mood and affect normal. NERVOUS SYSTEM: Cranial N 2-12 grossly normal. Moves all 4 limbs. Diffuse weakness No focal deficits. Strength and sensation grossly intact.. Skin: no lesions, no rash Joints: No active swelling. No inflammation. Lymphatic system. No LN neck axilla or groin. Results CBC & Chem 7: 08/17/20 18:05 08/18/20 08:55 Labs: Abnormal Lab Results - Last 24 Hours (Table) 08/17/20 08/17/20 08/17/20 Range/Units 18:05 18:05 18:13 Hct 53.8 H (39.0-53.0) % MCV 110.2 H (80.0-100.0) fL MCHC 30.4 L (31.0-37.0) g/dL Macrocytosis Marked A Glucose 328 H (74-99) mg/dL POC Glucose (mg/dL) (75-99) mg/dL Total Protein 8.7 H (6.3-8.2) g/dL Urine Glucose (UA) 4+ H (Negative) Ur Amphetamines Screen Detected H (NotDetected) U Methamphetamines Scrn Detected H (NotDetected) U Benzodiazepines Scrn Detected H (NotDetected) 08/17/20 08/18/20 Range/Units 20:41 11:32 Hct (39.0-53.0) % MCV (80.0-100.0) fL MCHC (31.0-37.0) g/dL Macrocytosis Glucose (74-99) mg/dL POC Glucose (mg/dL) 185 H 70 L (75-99) mg/dL Total Protein (6.3-8.2) g/dL Urine Glucose (UA) (Negative) Ur Amphetamines Screen (NotDetected) U Methamphetamines Scrn (NotDetected) U Benzodiazepines Scrn (NotDetected) Thrombosis Risk Factor Assmnt - Choose All That Apply Any of the Below Risk Factors Present?: Yes Each Factor Represents 1 point: Abnormal pulmonary function (COPD), Age 41-60 years, Medical pt on bed rest Other Risk Factors: No Other congenital or acquired thrombophilia - If yes, enter type in comment: No Thrombosis Risk Factor Assessment Total Risk Factor Score: 3 Thrombosis Risk Factor Assessment Level: Moderate Risk Assessment and Plan Assessment: New-onset seizures in a patient with alcohol intoxication, DTs. Toxicology screen reporting amphetamines, methamphetamines and benzodiazepines. Serum alcohol less than 10. Acute metabolic and toxic encephalopathy secondary to the above COPD, stable Diabetes mellitus Hypertension History of PE History of DVT History of arrhythmias, types unknown Anxiety Depression Schizophrenia Ongoing nicotine abuse Polysubstance abuse including marijuana, methamphetamine, opiate , nicotine and alcohol abuse. Plan: Continue on current medication regime ,monitoring and symptomatic treatment. Maintain seizure precautions, and Keppra. CIWA protocol. Neurology consulted. Recreational drug use including nicotine cessation reinforced. The impression and plan of care has been dictated as directed. : I performed a history and examination of this patient, discussed the same with the dictator. I agree with the dictator's note ,documented as a scribe. Any additional findings or plans will be noted.
[2020-08-18] MEDS ORDERED: Magnesium Replacement Protocol 1 EACH MISC MISCELLANE PRN (13:20)
[2020-08-18] MEDS: levETIRAcetam 500 MG TAB PO SCH ×2 (14:09→20:27)
[2020-08-18] MEDS: LORazepam 2 MG/ML INJ IV PRN ×3 (15:48→22:56)
[2020-08-18 16:49] LABS: Glucose,Whole Blood 92 mg/dL (75-99)
--- NOTE | 2020-08-18 17:18 | EEG ---
ELECTROENCEPHALOGRAM REPORT DATE OF SERVICE: 08/18/2020 CLINICAL HISTORY: This is a 59-year-old gentleman with a history of alcohol use whose last drink was about 4 or 5 days ago, who presented to the emergency department on 08/17/2020 for three witnessed seizure-like episodes. The video EEG was obtained to evaluate for seizure and epileptiform activity. RELEVANT MEDICATION: Ativan and Keppra. EEG TYPE: A routine 21 channel EEG was performed with video using the 10/20 electrode placement system. DESCRIPTION: Wakefulness, drowsiness and stage 2 sleep are obtained. During wakefulness, there is poorly formed posterior dominant rhythm of 8.5- 9 hertz that is poorly sustained on bilateral hemisphere. During drowsiness there is slowing in attenuation of the background activity. During stage 2 sleep, there are sleep spindles and K complexes. There is excessive fast activity seen on the bilateral hemisphere. INTERICTAL AND ICTAL: None. ACTIVATION PROCEDURE: Photic stimulation did not evoke a posterior driving response. Hyperventilation was not performed because of the patient's clinical history. CLINICAL INTERPRETATION: This is a normal awake, drowsy, and asleep routine EEG. There is no focal slowing, epileptiform discharges or seizure activity seen during the study. The excessive fast activity is likely due to medication effect. Clinical correlation is recommended. MMODL / IJN: [id number] / BLAYNE
[2020-08-18 17:48] LABS: Hemoglobin A1C 5.8 % (4.0-6.0)
[2020-08-18 21:03] LABS: Glucose,Whole Blood 107 mg/dL (75-99)
[2020-08-19] MEDS: THIAMINE 100 MG TAB PO SCH ×2 (06:16→17:19)
[2020-08-19 06:17] LABS: Glucose,Whole Blood 117 mg/dL (75-99)
[2020-08-19] MEDS: levETIRAcetam 500 MG TAB PO SCH ×2 (09:28→20:03)
[2020-08-19] MEDS: CYANOCOBALAMIN 500 MCG TAB PO SCH (09:28)
[2020-08-19] MEDS: FOLIC ACID 1 MG TAB PO SCH (09:28)
--- NOTE | 2020-08-19 11:30 | P.PN ---
Subjective Progress Note Date: 08/19/20 Patient was seen at bedside and that he states that he's doing much better. Per the patient's nurse he has not had any further seizure-like episodes. Patient and the been receiving Ativan for his the delirium tremens. He received 1 mg at the 2026 yesterday and another 1 mg at 2255. Objective - Vital Signs Vital signs: Vital Signs Temp 98 F 08/19/20 08:00 Pulse 71 08/19/20 08:00 Resp 20 08/19/20 08:00 BP 114/73 08/19/20 08:00 Pulse Ox 93 L 08/19/20 08:00 Intake & Output 08/18/20 08/19/20 08/19/20 18:59 06:59 18:59 Intake Total 240 340 Output Total 450 500 Balance -210 -500 340 Weight 102 kg Intake: Oral 240 340 Output: Urine 450 500 Other: # Voids 2 # Bowel Movements 1 - Exam GENERAL: The patient is lying in bed and is not in acute distress. CHEST: The heart rate is regular rate rhythm. No murmurs to auscultation. LUNG: Clear to auscultation bilaterally no wheezing noted throughout. Not labored breathing. ABDOMEN/GI: Bowel sounds present in all 4 quadrants. No tenderness to palpation throughout. NEUROLOGICAL: Higher mental function: The patient is awake, alert, oriented to self, place and time. Patient is following commands. No aphasia and no neglect. Cranial nerves: The pupils are round, equal (4mm bilaterally) and reactive to light and accommodation. Visual arauz are full to confrontation throughout. Extraocular movement is intact no nystagmus is noted. Facial sensation is normal to touch throughout. The facial strength is normal throughout. Hearing is normal bilaterally to hand rub. Tongue is midline and moved [id number] without any difficulty. No dysarthria is noted. Shoulder shrug is normal bilaterally. Motor: Gait is defered. The strength is 5 over 5 throughout. Normal tone and bulk. Cerebellum: Normal finger to nose bilaterally. Sensation: Sensation is normal to touch throughout. Reflexes (right/left): 2+ throughout. Plantars are downgoing bilaterally. - Labs CBC & Chem 7: 08/17/20 18:05 08/18/20 08:55 Labs: Abnormal Lab Results - Last 24 Hours (Table) 08/18/20 08/18/2020 Range/Units 11:32 12:03 20:59 POC Glucose (mg/dL) 70 L 134 H 107 H (75-99) mg/dL 08/19/20 Range/Units 06:15 POC Glucose (mg/dL) 117 H (75-99) mg/dL Assessment and Plan Assessment: Seizure due to delerium tremens from alcohol withdrawal Macrocytic anemia likely from alcohol use Alcohol use Delirium tremens Tobacco use Hypertension Plan: In the ED the patient was started on Keppra 1000 mg every 12 hours. I'll decrease it to 500 mg twice a day on 08/18/2020. Routine EEG: Normal. There is no focal slowing, epileptiform discharges or seizure seen. There is excessive fast activity due to medication effect. CT of the head: No acute intracranial process. Fitamin B12 level: 322. Folate: 6.0 Continue vitamin B-12 thousand micrograms daily and folic acid 1mg daily. Continue thiamine 100 mg twice a day. He is on Ativan 1 mg every 1 hour as needed for CIWA protocol. And we'll defer the management to the primary team. Patient was counseled on alcohol cessation as well as tobacco cessation. Patient to avoid the driving for 6 month until seizure-free per [facility]. He is to avoid the [place], avoid swimming unassisted and avoid heavy machinery. From a neurology perspective the patient is clear and there is no further workup needed. There is no neurology service over the weekend. Please Perfect Serve. Miah Pastor M.D. Neuro-hospitalist Time with Patient: Less than 30
[2020-08-19 12:21] LABS: Glucose,Whole Blood 102 mg/dL (75-99)
[2020-08-19] MEDS: PANTOPRAZOLE 40 MG/10 ML VIAL IVP SCH (12:39)
--- NOTE | 2020-08-19 12:43 | XR ---
EXAMINATION TYPE: XR chest 1V portable DATE OF EXAM: 08/19/2020 COMPARISON: Prior chest x-ray 05/30/2020 HISTORY: Hypoxia TECHNIQUE: Single frontal view of the chest is obtained. FINDINGS: Postop changes are noted to the left clavicle. Interstitial changes are present at the sera g bases. Cardiomediastinal silhouette, pulmonary vascularity and markos are stable. Multiple left-sided rib fractures appear old. No evident pneumothorax or pleural effusion. IMPRESSION: Findings are similar to prior exam. There may be basilar subsegmental atelectatic change s, scarring.
--- NOTE | 2020-08-19 13:25 | P.PN ---
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 Officer at bedside reports all extremities were randomly shaking, without stiffening, without incontinence of urine or bowel movement. Officer reports patient received Valium. Apparently this is a new onset of seizures. Patient was unable to disclose when his last drink was and how much he drinks per day. Denies any fevers or chills. Denies cough or congestion. Reports nausea and vomiting, no abdominal pain. Denies chest pain, palpitations or shortness of breath. Keppra initiated in the ER along with Ativan. Vital signs stable on admission, afebrile, normal WBC, EKG reporting normal sinus rhythm. Hemoglobin 16.4, platelets 312, MCV 110.2. Chemistry unremarkable with the exception of hyperglycemia, blood sugar in the 300s on admission currently 90s to low 100s. UA negative. Toxicology screen detected amphetamines, methamphetamines and benzodiazepines. Serum alcohol less than 10. Acetaminophen less than 10. Reported sustaining a fall, hitting his head without syncope or near syncope. Brain CT reported no acute intracranial process. 08/19/20 Sleepy this morning, apparently patient received both Valium and Ativan throughout the night. Desatted, requiring 4 L nasal cannula O2-O2 sats in the 90s. Chest x-ray reported. EEG reported no seizure activity. No further seizure activity. No DTs. Afebrile. Denies chest pain, palpitations or shortness of breath. Objective - Vital Signs Vital signs: Vital Signs Temp 98 F 08/19/20 08:00 Pulse 71 08/19/20 08:00 Resp 20 08/19/20 08:00 BP 114/73 08/19/20 08:00 Pulse Ox 93 L 08/19/20 08:00 Intake & Output 08/18/20 08/19/20 08/19/20 18:59 06:59 18:59 Intake Total 240 340 Output Total 450 500 Balance -210 -500 340 Weight 102 kg Intake: Oral 240 340 Output: Urine 450 500 Other: # Voids 2 # Bowel Movements 1 - Exam PHYSICAL EXAM: VITAL SIGNS: As above GENERAL: Lying in bed, sleepy, alert and oriented 3, NAD HEENT: Conjunctivae normal. eyes normal. Oral mucosa moist NECK: No JVD. No thyroid enlargement. CARDIOVASCULAR: S1, S2 regular. No murmur RESPIRATION: Breath sounds diminished in the bases. ABDOMEN: Soft, nontender . No guarding. no masses. Positive bowel sounds. LEGS: No edema. no swelling NERVOUS SYSTEM: Cranial N 2-12 grossly normal.No focal deficits. Strength and sensation grossly intact.. Skin: Warm and dry, no rash - Labs CBC & Chem 7: 08/17/20 18:05 08/18/20 08:55 Labs: Abnormal Lab Results - Last 24 Hours (Table) 08/18/20 08/18/20 08/19/20 Range/Units 12:03 20:59 06:15 POC Glucose (mg/dL) 134 H 107 H 117 H (75-99) mg/dL Assessment and Plan Assessment: New-onset seizures in a patient with alcohol intoxication, DTs. Toxicology screen reporting amphetamines, methamphetamines and benzodiazepines. Serum a lcohol less than 10. Acute metabolic and toxic encephalopathy secondary to the above, improved COPD, stable Diabetes mellitus Hypertension History of PE History of DVT History of arrhythmias, types unknown Anxiety Depression Schizophrenia Ongoing nicotine abuse Polysubstance abuse including marijuana, methamphetamine, opiate , nicotine and alcohol abuse. Plan: Continue on current medication regime ,monitoring and symptomatic treatment. Keppra dosing as per neurology. [place] protocol.Recreational drug use including nicotine cessation reinforced. Continue weaning down oxygen. Chest x-ray pending. Potential discharge for later today. The impression and plan of care has been dictated as directed. : I performed a history and examination of this patient, discussed the same with the dictator. I agree with the dictator's note ,documented as a scribe. Any additional findings or plans will be noted.
--- NOTE | 2020-08-19 14:35 | P.DS ---
Providers Date of admission: 08/17/20 18:49 Expected date of discharge: 08/19/20 Attending physician: Sukhdev Scruggs Consults: 08/17/20 18:49 Consult Physician Routine Consulting Provider: Miah Pastor Consult Reason/Comments: sz Do you want consulting provider notified?: Yes Primary care physician: [facility] Course: Final Diagnoses: New-onset seizures suspected to be related to alcohol intoxication, DTs. Toxicology screen reporting amphetamines, methamphetamines and benzodiazepines. Serum alcohol less than 10. Acute metabolic and toxic encephalopathy secondary to the above, improved COPD, stable Diabetes mellitus Hypertension History of PE History of DVT History of arrhythmias, types unknown Anxiety Depression Schizophrenia Ongoing nicotine abuse Polysubstance abuse including marijuana, methamphetamine, opiate , nicotine and alcohol abuse. 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 Officer at bedside reports all extremities were randomly shaking, without stiffening, without incontinence of urine or bowel movement. Officer reports patient received Valium. Apparently this is a new onset of seizures. Patient was unable to disclose when his last drink was and how much he drinks per day. Denies any fevers or chills. Denies cough or congestion. Reports nausea and vomiting, no abdominal pain. Denies chest pain, palpitations or shortness of breath. Keppra initiated in the ER along with Ativan. Vital signs stable on admission, afebrile, normal WBC, EKG reporting normal sinus rhythm. Hemoglobin 16.4, platelets 312, MCV 110.2. Chemistry unremarkable with the exception of hyperglycemia, blood sugar in the 300s on admission currently 90s to low 100s. UA negative. Toxicology screen detected amphetamines, methamphetamines and benzodiazepines. Serum alcohol less than 10. Acetaminophen less than 10. Reported sustaining a fall, hitting his head without syncope or near syncope. Brain CT reported no acute intracranial process. 08/19/20 Sleepy this morning, apparently patient received both Valium and Ativan throughout the night. Desatted, requiring 4 L nasal cannula O2-O2 sats in the 90s. Chest x-ray reported. EEG reported no seizure activity. No further seizure activity. No DTs. Afebrile. Denies chest pain, palpitations or shortness of breath. Evaluated by neurology and placed on Keppra with no further seizure activity. Cleared by neurology for discharge. Patient will be discharged today to return to correction in a stable condition with guarded prognosis, pending he is weaned off of oxygen. Patient to avoid driving for 6 month until seizure-free per [facility] The impression and plan of care has been dictated as directed. : I performed a history and examination of this patient, discussed the same with the dictator. I agree with the dictator's note ,documented as a scribe. Any additional findings or plans will be noted. Patient Condition at Discharge: Stable Plan - Discharge Summary Discharge Rx Participant: Yes New Discharge Prescriptions: New Folic Acid 1 mg PO DAILY #30 tab levETIRAcetam [Keppra] 500 mg PO Q12HR #60 tab Multivitamins, Thera [Multivitamin (formulary)] 1 tab PO DAILY #30 tablet Thiamine [Vitamin B-1] 100 mg PO DAILY #30 tab Continue Metoprolol Tartrate [Lopressor] 25 mg PO BID Warfarin Sodium [Coumadin] 5 mg PO HS Albuterol Nebulized [Ventolin Nebulized] 2.5 mg INHALATION RT-TID Amoxic-Pot Clav 875-125Mg [Augmentin 875-125] 1 tab PO BID Azithromycin [Zithromax] 500 mg PO HS Diazepam [Valium] 10 mg PO HS predniSONE [Deltasone] 40 mg PO DAILY Discontinued Aspirin 650 mg PO TID PRN PRN Reason: Pain Discharge Medication List Metoprolol Tartrate [Lopressor] 25 mg PO BID 11/07/17 [History] Warfarin Sodium [Coumadin] 5 mg PO HS 05/29/20 [History] Albuterol Nebulized [Ventolin Nebulized] 2.5 mg INHALATION RT-TID 08/17/20 [History] Amoxic-Pot Clav 875-125Mg [Augmentin 875-125] 1 tab PO BID 08/17/20 [History] Azithromycin [Zithromax] 500 mg PO HS 08/17/20 [History] Diazepam [Valium] 10 mg PO HS 08/17/20 [History] predniSONE [Deltasone] 40 mg PO DAILY 08/17/20 [History] Folic Acid 1 mg PO DAILY #30 tab 08/19/20 [Rx] Multivitamins, Thera [Multivitamin (formulary)] 1 tab PO DAILY #30 tablet 08/19/20 [Rx] Thiamine [Vitamin B-1] 100 mg PO DAILY #30 tab 08/19/20 [Rx] levETIRAcetam [Keppra] 500 mg PO Q12HR #60 tab 08/19/20 [Rx] Follow up Appointment(s)/Referral(s): Sukhdev Scruggs Jr, [Primary Care Provider] - 1-2 days Activity/Diet/Wound Care/Special Instructions: DC pending patient is able to be weaned off of oxygen .CORTEZ inhibitor placed on hold secondary to systolic blood pressures in the low 100s. Patient to avoid driving for 6 month until seizure-free per [facility].
[2020-08-19 14:44] LABS: Prothrombin Time 10.6 sec (9.0-12.0)
[2020-08-19 16:54] LABS: Glucose,Whole Blood 74 mg/dL (75-99)
[2020-08-19] MEDS: METOPROLOL TARTRATE 25 MG TAB PO SCH ×2 (17:19→20:04)
[2020-08-19] MEDS: AMOXIC-POT CLAV 875-125MG 1 EACH TAB PO SCH (20:04)
[2020-08-19 20:11] LABS: Glucose,Whole Blood 95 mg/dL (75-99)
[2020-08-19] MEDS ORDERED: AZITHROMYCIN 500 MG TAB PO SCH (21:00)
[2020-08-19] MEDS ORDERED: WARFARIN 3 MG TAB PO SCH (21:00)
[2020-08-20 00:25] VITALS: RESP 17
[2020-08-20 06:17] VITALS: BP 100/54; PULSE 58; TEMP 97.9
[2020-08-20 06:29] LABS: Glucose,Whole Blood 86 mg/dL (75-99)
[2020-08-20] MEDS: THIAMINE 100 MG TAB PO SCH (06:54)
[2020-08-20 08:25] LABS: Prothrombin Time 10.6 sec (9.0-12.0)
[2020-08-20 08:28] LABS: African American GFR (CKD) >90 (>60 ml/min/1.73 sqM); Anion Gap 1 mmol/L; Blood Urea Nitrogen 17 mg/dL (9-20); Calcium 9.2 mg/dL (8.4-10.2); Carbon Dioxide 32 mmol/L (22-30); Chloride 105 mmol/L (98-107); Glucose 92 mg/dL (74-99); Non-African American GFR(CKD) >90 (>60 ml/min/1.73 sqM); Potassium 4.5 mmol/L (3.5-5.1); Sodium 138 mmol/L (137-145)
[2020-08-20 08:32] LABS: Basophils # (A) 0.1 k/uL (0-0.2); Basophils % (A) 1 %; Eosinophils # (A) 0.2 k/uL (0-0.7); Eosinophils % (A) 3 %; HCT 45.2 % (39.0-53.0); Lymphocytes % (A) 27 %; MCH 32.8 pg (25.0-35.0); MCHC 30.9 g/dL (31.0-37.0); MCV 106.2 fL (80.0-100.0); Macrocytosis Moderate; Mean Platelet Volume 7.7; Monocytes # (A) 0.7 k/uL (0-1.0); Monocytes % (A) 9 %; Neutrophils # (A) 4.3 k/uL (1.3-7.7); Neutrophils % (A) 59 %; Platelet Count 285 k/uL (150-450); RBC 4.26 m/uL (4.30-5.90); RDW 12.6 % (11.5-15.5); WBC 7.4 k/uL (3.8-10.6)
[2020-08-20] MEDS: PANTOPRAZOLE 40 MG/10 ML VIAL IVP SCH ×2 (09:07→09:17)
[2020-08-20] MEDS: AMOXIC-POT CLAV 875-125MG 1 EACH TAB PO SCH (09:07)
[2020-08-20] MEDS: METOPROLOL TARTRATE 25 MG TAB PO SCH (09:08)
[2020-08-20] MEDS: FOLIC ACID 1 MG TAB PO SCH (09:08)
[2020-08-20] MEDS: CYANOCOBALAMIN 500 MCG TAB PO SCH (09:08)
[2020-08-20] MEDS: levETIRAcetam 500 MG TAB PO SCH (09:08)
[2020-08-20] MEDS ORDERED: WARFARIN 7.5 MG TAB PO ONE (18:00)
== END 2020-08-20 09:57 | DRG 896 ==
LOC: EC 17:44 → 3SCARD 18:49
PROVIDERS: ADMIT Family Medicine; ATTEND Family Medicine
DX: F10.231 Alcohol dependence with withdrawal delirium (principal); G92 Toxic encephalopathy; I10 Essential (primary) hypertension; F41.9 Anxiety disorder, unspecified; F32.9 Major depressive disorder, single episode, unspecified; R40.2362 Coma scale, best motor response, obeys commands, at arrival to emergency department; R40.2142 Coma scale, eyes open, spontaneous, at arrival to emergency department; R40.2252 Coma scale, best verbal response, oriented, at arrival to emergency department; E11.65 Type 2 diabetes mellitus with hyperglycemia; D53.9 Nutritional anemia, unspecified; F20.9 Schizophrenia, unspecified; R56.9 Unspecified convulsions; F19.10 Other psychoactive substance abuse, uncomplicated; F17.210 Nicotine dependence, cigarettes, uncomplicated; J44.9 Chronic obstructive pulmonary disease, unspecified; Z86.718 Personal history of other venous thrombosis and embolism; Z86.711 Personal history of pulmonary embolism; Z98.890 Other specified postprocedural states; Z79.899 Other long term (current) drug therapy; Z79.01 Long term (current) use of anticoagulants; Z80.0 Family history of malignant neoplasm of digestive organs; Z87.01 Personal history of pneumonia (recurrent)
CPT/HCPCS: 36415; 70450; 71045; 80048; 80053; 80306; 80320; 80329; 81003; 82607; 82746; 82747; 83036; 83520; 83735; 84484; 85025; 85610; 93005; 95819; 96361; 96372; 96374; 96375; 96376; 99291

== ENCOUNTER 2020-10-03 02:20 | Emergency (ER) | payer OTHER ==
[2020-10-03 03:22] LABS: Basophils # (A) 0.1 k/uL (0-0.2); Basophils % (A) 0 %; Eosinophils # (A) 0.3 k/uL (0-0.7); Eosinophils % (A) 3 %; HCT 38.5 % (39.0-53.0); HGB 12.3 gm/dL (13.0-17.5); Lymphocytes # (A) 1.1 k/uL (1.0-4.8); Lymphocytes % (A) 10 %; MCH 33.1 pg (25.0-35.0); MCHC 31.9 g/dL (31.0-37.0); MCV 103.6 fL (80.0-100.0); Macrocytosis Slight; Mean Platelet Volume 6.8; Monocytes # (A) 0.5 k/uL (0-1.0); Monocytes % (A) 5 %; Neutrophils # (A) 8.8 k/uL (1.3-7.7); Neutrophils % (A) 81 %; Platelet Count 271 k/uL (150-450); RBC 3.72 m/uL (4.30-5.90); RDW 13.4 % (11.5-15.5); WBC 10.9 k/uL (3.8-10.6)
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
[2020-10-03 03:41] LABS: ALT 15 U/L (4-49); AST 27 U/L (17-59); African American GFR (CKD) >90 (>60 ml/min/1.73 sqM); Albumin 3.9 g/dL (3.5-5.0); Alkaline Phosphatase 110 U/L (38-126); Anion Gap 5 mmol/L; Blood Urea Nitrogen 15 mg/dL (9-20); Calcium 8.7 mg/dL (8.4-10.2); Carbon Dioxide 26 mmol/L (22-30); Chloride 103 mmol/L (98-107); Glucose 107 mg/dL (74-99); Magnesium 1.9 mg/dL (1.6-2.3); Non-African American GFR(CKD) >90 (>60 ml/min/1.73 sqM); Potassium 4.1 mmol/L (3.5-5.1); Sodium 134 mmol/L (137-145); Total Bilirubin 0.5 mg/dL (0.2-1.3)
[2020-10-03 03:55] LABS: INR 0.9 (<1.2); Partial Thromboplastin Time 27.9 sec (22.0-30.0); Prothrombin Time 9.9 sec (9.0-12.0)
[2020-10-03 04:16] LABS: D-Dimer 0.73 mg/L FEU (<0.60)
--- NOTE | 2020-10-03 08:08 | US ---
EXAMINATION TYPE: US venous doppler duplex LE DATE OF EXAM: 10/03/2020 7:25 AM COMPARISON: us 05/29/2020 CLINICAL HISTORY: edema, hx DVT off meds. SIDE PERFORMED: Bilateral TECHNIQUE: The lower extremity deep venous system is examined utilizing real time linear array sonog emily with graded compression, doppler sonography and color-flow sonography. VESSELS IMAGED: Common Femoral Vein Deep Femoral Vein Greater Saphenous Vein * Femoral Vein Popliteal Vein Small Saphenous Vein * Proximal Calf Veins (* superficial vessels) Right Leg: Negative for DVT Left Leg: Negative for DVT IMPRESSION: No evidence for DVT at this point in time.
[2020-10-03 09:16] VITALS: BP 121/82; PULSE 64; RESP 18; TEMP 97.4
== END 2020-10-03 09:16 | disposition home or self-care (01) ==
LOC: EC 02:20
DX: R22.43 Localized swelling, mass and lump, lower limb, bilateral (principal); F17.200 Nicotine dependence, unspecified, uncomplicated; I10 Essential (primary) hypertension; Z79.01 Long term (current) use of anticoagulants; Z79.899 Other long term (current) drug therapy; Z86.718 Personal history of other venous thrombosis and embolism; Z86.711 Personal history of pulmonary embolism; Z91.14 Patient's other noncompliance with medication regimen
CPT/HCPCS: 36415; 80053; 83735; 83880; 85025; 85379; 85610; 85730; 93970; 99284

== ENCOUNTER 2021-03-03 16:42 | Emergency (ER) | payer OTHER ==
[2021-03-03 17:19] VITALS: BP 107/71; PULSE 100; RESP 20; TEMP 98.1
--- NOTE | 2021-03-03 18:46 | CT ---
EXAMINATION TYPE: CT chest wo con DATE OF EXAM: 03/03/2021 COMPARISON: 05/29/2020 HISTORY: Left anterior rib pain. Fall. CT DLP: 532.2 mGycm Automated exposure control for dose reduction was used. Images were obtained from the thoracic inlet to the diaphragm with no contrast. There is some mild infiltrate and atelectasis at the lung bases. There is no pericardial effusion. Th ere is no pleural effusion or pneumothorax. Trachea is midline. There is no mediastinal adenopathy. T here are no hilar masses. There is some coronary artery calcification. There is mild thoracic kyphosis with slight anterior wedging of several mid thoracic vertebra. Wedgin g up to 25%. Sternum is intact. There is some osteoarthritis in the left shoulder joint. There are po sterior lower right-sided rib deformities consistent with old fractures. There is anterior left fourt h and fifth rib mild deformities. Left fifth rib fracture appears to be a change compared to old exam . Left fourth rib fracture is unchanged. There are calculi in the posterior left kidney measuring 4 to 5 mm. There is no hydronephrosis. Liver and spleen are intact. IMPRESSION: Acute fracture anterior left fifth rib. There are increased pulmonary interstitial infiltrates and nolan bsegmental atelectasis at the lung bases compared to old exam.
[2021-03-03] MEDS ORDERED: MORPHINE SULFATE 4 MG/ML SYRINGE IM STA (19:55)
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
== END 2021-03-03 20:10 | disposition home or self-care (01) ==
LOC: EC 16:42
DX: S22.32XA Fracture of one rib, left side, initial encounter for closed fracture (principal); J44.9 Chronic obstructive pulmonary disease, unspecified; I10 Essential (primary) hypertension; E11.9 Type 2 diabetes mellitus without complications; F41.9 Anxiety disorder, unspecified; F32.9 Major depressive disorder, single episode, unspecified; F17.200 Nicotine dependence, unspecified, uncomplicated; F12.90 Cannabis use, unspecified, uncomplicated; F14.90 Cocaine use, unspecified, uncomplicated; F15.90 Other stimulant use, unspecified, uncomplicated; F11.90 Opioid use, unspecified, uncomplicated; Z86.711 Personal history of pulmonary embolism; W19.XXXA Unspecified fall, initial encounter
CPT/HCPCS: 71250; 99285; 96372; J2270

== ENCOUNTER 2022-03-14 02:27 | Emergency (ER) | payer OTHER ==
--- NOTE | 2022-03-14 03:29 | XR ---
EXAMINATION TYPE: XR cervical spine comp DATE OF EXAM: 03/14/2022 COMPARISON: NONE HISTORY: Neck pain TECHNIQUE: 5 views FINDINGS: Atlantoaxial facet joint is normal. Cervical vertebrae are fairly normal alignment. There i s some degenerative disc space narrowing at C5-6 and C6-7 with spurring of the endplates. Facet joint s are intact. There are no cervical ribs. No significant neural foraminal narrowing seen. IMPRESSION: Ordinary spondylotic changes in the lower cervical spine. No fracture.
[2022-03-14] MEDS ORDERED: KETOROLAC 15 MG/ML 1 ML VIAL IM STA (04:22)
--- NOTE | 2022-03-14 04:36 | ED ---
General Adult HPI - General Chief complaint: Neck Pain/Injury Stated complaint: Neck pain Source: patient Mode of arrival: ambulatory Limitations: no limitations - History of Present Illness Initial comments: Taz is a 61-year-old male with a history of known arthritis and he's been told bulging disks in his neck. He reports he spent the last 10 days in half-way and has noted progressively worsening neck pain and he feels like he can feel the bones grinding on each other when he turns his head. Patient was told by nursing staff at the half-way that he should be evaluated when he is released, he was released earlier today so he came to the hospital. He has not taken any medications for the grinding discomfort in his neck. He doesn't have any numbness or tingling in the arms or hands. - Related Data Home Medications Medication Instructions Recorded Confirmed Metoprolol Tartrate [Lopressor] 25 mg PO BID 11/07/17 10/03/20 Warfarin Sodium [Coumadin] 5 mg PO HS 05/29/20 10/03/20 lisinopriL [Zestril] 5 mg PO DAILY 10/03/20 10/03/20 Previous Rx's Medication Instructions Recorded HYDROcodone/APAP 7.5-325MG [[place] 1 tab PO Q6HR PRN 3 Days #12 tab 03/03/21 7.5-325] Allergies Allergy/AdvReac Type Severity Reaction Status Date / Time No Known Allergies Allergy Verified 03/14/22 02:35 Review of Systems ROS Statement: Those systems with pertinent positive or pertinent negative responses have been documented in the HPI. ROS Other: All systems not noted in ROS Statement are negative. Past Medical History Past Medical History: COPD, Diabetes Mellitus, Deep Vein Thrombosis (DVT), Hypertension, Musculoskeletal Disorder, Pneumonia, Pulmonary Embolus (PE) Additional Past Medical History / Comment(s): "broken back 01/06/19", "heart arrhythmia's," DVT right leg, PE History of Any Multi-Drug Resistant Organisms: None Reported Past Surgical History: Orthopedic Surgery Additional Past Surgical History / Comment(s): left clavicle, jaw, Past Anesthesia/Blood Transfusion Reactions: No Reported Reaction Past Psychological History: Anxiety, Depression, Schizophrenia Smoking Status: Current every day smoker Past Alcohol Use History: Abuse, Daily, Heavy Past Drug Use History: None Reported - Past Family History Sister(s) Family Medical History: Cancer Additional Family Medical History / Comment(s): 2 sisters from cancer General Exam - General Exam Comments Initial Comments: Physical Exam GENERAL: Patient is well-developed and well-nourished. Patient is nontoxic and well-hydrated and is in no distress. HENT: Normocephalic, Atraumatic. EYES: PERRL, EOMI PULMONARY: Unlabored respirations. CARDIOVASCULAR: RRR Warm and well perfused extremities ABDOMEN: Non-distended SKIN: No rashes or bruising No skin changes over the cervical spine : Deferred NEUROLOGIC: Alert and oriented Normal speech Normal gait MUSCULOSKELETAL: Moving all extremities with no apparent injury Full range of motion of the cervical spine PSYCHIATRIC: No SI/HI Limitations: no limitations Course Vital Signs 03/14/22 03/14/22 02:36 04:44 Temperature 97.0 F L 97.8 F Pulse Rate 104 H 94 Respiratory 20 16 Rate Blood Pressure 132/86 131/82 O2 Sat by Pulse 96 96 Oximetry Medical Decision Making - Medical Decision Making X-rays were obtained by triage, there is findings of arthritis but no other acute findings, patient has chronic arthritis and he reports he can hear the bones grating when he striking his head he was advised to follow with pain management or orbital spine. He was given information on both and discharged home in stable condition. Disposition Clinical Impression: Cervical spine arthritis Disposition: HOME SELF-CARE Condition: Stable Instructions (If sedation given, give patient instructions): Arthritis (ED) Additional Instructions: Follow up with ortho/spine or pain management to discuss injections or additional imaging Is patient prescribed a controlled substance at d/c from ED?: No Referrals: Sudhir Bobo MD [Primary Care Provider] - 1-2 days Taylor Zamora DO [Doctor of Osteopathic Medicine] - 1-2 days Abraham Gilbert DO [Doctor of Osteopathic Medicine] - 1-2 days Wes Soto MD [STAFF PHYSICIAN] - 1-2 days
[2022-03-14 04:44] VITALS: BP 131/82; PULSE 94; RESP 16; TEMP 97.8
== END 2022-03-14 04:44 | disposition home or self-care (01) ==
LOC: EC 02:27
DX: M47.812 Spondylosis without myelopathy or radiculopathy, cervical region (principal); E11.9 Type 2 diabetes mellitus without complications; I10 Essential (primary) hypertension; J44.9 Chronic obstructive pulmonary disease, unspecified; F17.200 Nicotine dependence, unspecified, uncomplicated; Z86.711 Personal history of pulmonary embolism; Z86.718 Personal history of other venous thrombosis and embolism; Z79.01 Long term (current) use of anticoagulants; Z79.899 Other long term (current) drug therapy
CPT/HCPCS: 72050; 96372; 99283

== ENCOUNTER 2022-09-19 19:57 | Emergency (ER) | payer OTHER ==
[2022-09-19 20:06] VITALS: RESP 18; TEMP 97.5
[2022-09-19] MEDS ORDERED: SODIUM CHLORIDE 0.9% 1,000 ML IV STA (20:18)
[2022-09-19 20:56] LABS: Basophils # (A) 0.1 k/uL (0-0.2); Basophils % (A) 1 %; Eosinophils # (A) 0.2 k/uL (0-0.7); Eosinophils % (A) 3 %; HCT 39.9 % (39.0-53.0); Lymphocytes # (A) 2.4 k/uL (1.0-4.8); Lymphocytes % (A) 34 %; Mean Platelet Volume 7.5; Monocytes # (A) 0.5 k/uL (0-1.0); Monocytes % (A) 7 %; Neutrophils # (A) 3.7 k/uL (1.3-7.7); Neutrophils % (A) 53 %; Platelet Count 227 k/uL (150-450); RBC 4.11 m/uL (4.30-5.90); RDW 11.6 % (11.5-15.5); WBC 6.9 k/uL (3.8-10.6)
[2022-09-19 21:05] LABS: ALT 17 U/L (4-49); AST 22 U/L (17-59); African American GFR (CKD) >90 (>60 ml/min/1.73 sqM); Albumin 4.3 g/dL (3.5-5.0); Alkaline Phosphatase 72 U/L (38-126); Anion Gap 14 mmol/L; Blood Urea Nitrogen 18 mg/dL (9-20); Calcium 9.2 mg/dL (8.4-10.2); Carbon Dioxide 24 mmol/L (22-30); Chloride 102 mmol/L (98-107); Glucose 110 mg/dL (74-99); Non-African American GFR(CKD) >90 (>60 ml/min/1.73 sqM); Potassium 3.9 mmol/L (3.5-5.1); Sodium 140 mmol/L (137-145); Total Bilirubin 0.3 mg/dL (0.2-1.3); Total Protein 6.9 g/dL (6.3-8.2)
[2022-09-19 21:29] VITALS: BP 141/96; PULSE 76
--- NOTE | 2022-09-19 21:37 | XR ---
EXAMINATION TYPE: XR chest 2V DATE OF EXAM: 09/19/2022 8:56 PM COMPARISON: Chest radiographs from 08/19/2020, CT chest 03/03/2021 TECHNIQUE: XR chest 2V Frontal and lateral views of the chest. CLINICAL INDICATION:Male, 61 years old with history of palpitations, SOB; FINDINGS: Lungs/Pleura: Scattered chronic interstitial changes. Increased lucency in the lung apices with mau ening of the diaphragm. There is no evidence of pleural effusion, focal consolidation, or pneumothora x. Pulmonary vascularity: Unremarkable. Heart/mediastinum: Cardiomediastinal silhouette is unremarkable. Musculoskeletal: No acute osseous pathology. Multiple chronic appearing left-sided rib fractures. Lef t clavicle with hardware in place and appears intact. IMPRESSION: 1. Chronic changes without evidence for acute cardiopulmonary disease/process. 2. COPD changes.
--- NOTE | 2022-09-19 23:49 | ED ---
Arrhythmia/Palpitations HPI - General Chief Complaint: Arrhythmia/Palpitations Stated Complaint: palpitations Time Seen by Provider: 09/19/22 20:04 Source: patient, EMS Mode of arrival: EMS Limitations: no limitations - History of Present Illness Initial Comments: Patient is a 61-year-old male with a past medical history of hypertension, DVT, PE, diabetes mellitus, and COPD who presents to the emergency department with a chief complaint of palpitations. Patient reports intermittent palpitations for the past several years. States today's episode lasted for about 5 minutes and has since resolved. He denies chest pain, lightheadedness, dizziness, syncope, sweating, shortness of breath, abdominal pain, nausea, vomiting. Denies personal and family history of arrhythmia. [facility]. Denies alcohol or drug use. - Related Data Home Medications Medication Instructions Recorded Confirmed Metoprolol Tartrate [Lopressor] 25 mg PO BID 11/07/17 10/03/20 Warfarin Sodium [Coumadin] 5 mg PO HS 05/29/20 10/03/20 lisinopriL [Zestril] 5 mg PO DAILY 10/03/20 10/03/20 Previous Rx's Medication Instructions Recorded HYDROcodone/APAP 7.5-325MG [[place] 1 tab PO Q6HR PRN 3 Days #12 tab 03/03/21 7.5-325] Allergies Allergy/AdvReac Type Severity Reaction Status Date / Time No Known Allergies Allergy Verified 09/19/22 20:06 Review of Systems ROS Statement: Those systems with pertinent positive or pertinent negative responses have been documented in the HPI. ROS Other: All systems not noted in ROS Statement are negative. Past Medical History Past Medical History: COPD, Diabetes Mellitus, Deep Vein Thrombosis (DVT), Hypertension, Musculoskeletal Disorder, Pneumonia, Pulmonary Embolus (PE) Additional Past Medical History / Comment(s): "broken back 01/06/19", "heart arrhythmia's," DVT right leg, PE History of Any Multi-Drug Resistant Organisms: None Reported Past Surgical History: Orthopedic Surgery Additional Past Surgical History / Comment(s): left clavicle, jaw, Past Anesthesia/Blood Transfusion Reactions: No Reported Reaction Past Psychological History: Anxiety, Depression, Schizophrenia Smoking Status: Current every day smoker Past Alcohol Use History: Abuse, Daily, Heavy Past Drug Use History: None Reported - Past Family History Sister(s) Family Medical History: Cancer Additional Family Medical History / Comment(s): 2 sisters from cancer General Exam Limitations: no limitations Eye exam: Present: normal appearance, PERRL, EOMI. Absent: scleral icterus, conjunctival injection, periorbital swelling Respiratory exam: Present: normal lung sounds bilaterally. Absent: respiratory distress, wheezes, rales, rhonchi, stridor Cardiovascular Exam: Present: regular rate, normal rhythm, normal heart sounds. Absent: systolic murmur, diastolic murmur, rubs, gallop, clicks Neurological exam: Present: alert, oriented X3, CN II-XII intact Psychiatric exam: Present: normal affect, normal mood Course Vital Signs 09/19/22 09/19/22 20:01 21:29 Temperature 97.5 F L Pulse Rate 86 76 Respiratory 18 18 Rate Blood Pressure 146/102 141/96 O2 Sat by Pulse 95 96 Oximetry EKG Findings - EKG Comments: EKG Findings:: EKG taken at 20:05. Sinus rhythm, no ST segment or T-wave abnormalities. Ventricular rate 79. VT interval 154. QRS duration 97. QTc 408 Medical Decision Making - Medical Decision Making This is a 61-year-old presenting with episode of palpitations. Patient well- appearing and in no apparent distress. S1 and S2 normal. RRR. With cardiac history, full cardiac workup was initiated. monitoring tech initiated. EKG obtained and interpreted by me which shows sinus rhythm, no ST segment or T-wave abnormalities. Ventricular rate 79. Laboratory studies obtained which are relatively unremarkable. Troponin WNL x 2. Patient observed closely in the ED. He did not have any further episodes of palpitations. No chest pain or SOB. Patient will be discharged with cardiology referral. Dr. Che is my attending. - Lab Data Result diagrams: 09/19/22 20:46 09/19/22 20:46 Lab Results 09/19/22 09/19/22 09/19/22 Range/Units 20:46 20:46 20:46 WBC 6.9 (3.8-10.6) k/uL RBC 4.11 L (4.30-5.90) m/uL Hgb 14.0 (13.0-17.5) gm/dL Hct 39.9 (39.0-53.0) % MCV 97.0 (80.0-100.0) fL MCH 34.0 (25.0-35.0) pg MCHC 35.0 (31.0-37.0) g/dL RDW 11.6 (11.5-15.5) % Plt Count 227 (150-450) k/uL MPV 7.5 Neutrophils % 53 % Lymphocytes % 34 % Monocytes % 7 % Eosinophils % 3 % Basophils % 1 % Neutrophils # 3.7 (1.3-7.7) k/uL Lymphocytes # 2.4 (1.0-4.8) k/uL Monocytes # 0.5 (0-1.0) k/uL Eosinophils # 0.2 (0-0.7) k/uL Basophils # 0.1 (0-0.2) k/uL Sodium 140 (137-145) mmol/L Potassium 3.9 (3.5-5.1) mmol/L Chloride 102 (98-107) mmol/L Carbon Dioxide 24 (22-30) mmol/L Anion Gap 14 mmol/L BUN 18 (9-20) mg/dL Creatinine 0.81 (0.66-1.25) mg/dL Est GFR (CKD-EPI)AfAm >90 (>60 ml/min/1.73 sqM) Est GFR (CKD-EPI)NonAf >90 (>60 ml/min/1.73 sqM) Glucose 110 H (74-99) mg/dL Calcium 9.2 (8.4-10.2) mg/dL Magnesium 2.0 (1.6-2.3) mg/dL Total Bilirubin 0.3 (0.2-1.3) mg/dL AST 22 (17-59) U/L ALT 17 (4-49) U/L Alkaline Phosphatase 72 (38-126) U/L Troponin I <0.012 (0.000-0.034) ng/mL Total Protein 6.9 (6.3-8.2) g/dL Albumin 4.3 (3.5-5.0) g/dL 09/19/22 Range/Units 22:58 WBC (3.8-10.6) k/uL RBC (4.30-5.90) m/uL Hgb (13.0-17.5) gm/dL Hct (39.0-53.0) % MCV (80.0-100.0) fL MCH (25.0-35.0) pg MCHC (31.0-37.0) g/dL RDW (11.5-15.5) % Plt Count (150-450) k/uL MPV Neutrophils % % Lymphocytes % % Monocytes % % Eosinophils % % Basophils % % Neutrophils # (1.3-7.7) k/uL Lymphocytes # (1.0-4.8) k/uL Monocytes # (0-1.0) k/uL Eosinophils # (0-0.7) k/uL Basophils # (0-0.2) k/uL Sodium (137-145) mmol/L Potassium (3.5-5.1) mmol/L Chloride (98-107) mmol/L Carbon Dioxide (22-30) mmol/L Anion Gap mmol/L BUN (9-20) mg/dL Creatinine (0.66-1.25) mg/dL Est GFR (CKD-EPI)AfAm (>60 ml/min/1.73 sqM) Est GFR (CKD-EPI)NonAf (>60 ml/min/1.73 sqM) Glucose (74-99) mg/dL Calcium (8.4-10.2) mg/dL Magnesium (1.6-2.3) mg/dL Total Bilirubin (0.2-1.3) mg/dL AST (17-59) U/L ALT (4-49) U/L Alkaline Phosphatase (38-126) U/L Troponin I <0.012 (0.000-0.034) ng/mL Total Protein (6.3-8.2) g/dL Albumin (3.5-5.0) g/dL Disposition Clinical Impression: Palpitations Disposition: HOME SELF-CARE Condition: Good Instructions (If sedation given, give patient instructions): Heart Palpitations (ED) Additional Instructions: Follow-up with [facility] specialist if palpitations continue or return to the emergency department if you experience new, concerning, or worsening symptoms. Is patient prescribed a controlled substance at d/c from ED?: No Referrals: Sudhir Bobo MD [Primary Care Provider] - 1-2 days Adam Wren MD [STAFF PHYSICIAN] - 1-2 days Time of Disposition: 23:49
== END 2022-09-20 00:09 | disposition home or self-care (01) ==
LOC: SUPCPDRO 19:57 → EC 19:57
DX: R00.2 Palpitations (principal); I10 Essential (primary) hypertension; J44.9 Chronic obstructive pulmonary disease, unspecified; E11.9 Type 2 diabetes mellitus without complications; I82.409 Acute embolism and thrombosis of unspecified deep veins of unspecified lower extremity; I26.99 Other pulmonary embolism without acute cor pulmonale; F10.10 Alcohol abuse, uncomplicated; F41.9 Anxiety disorder, unspecified; F32.A Depression, unspecified; F17.200 Nicotine dependence, unspecified, uncomplicated; Z79.811 Long term (current) use of aromatase inhibitors; Z79.899 Other long term (current) drug therapy
CPT/HCPCS: 36415; 71046; 80053; 83735; 84484; 85025; 93005; 96360; 96361; 99285

== ENCOUNTER 2022-11-16 19:42 | Inpatient (IN) | payer OTHER ==
--- NOTE | 2022-11-16 19:59 | ED ---
Chest Pain HPI - General Chief Complaint: Chest Pain Stated Complaint: Chest Pain Time Seen by Provider: 11/16/22 19:44 Source: patient, EMS, RN notes reviewed, old records reviewed Mode of arrival: ambulatory Limitations: no limitations - History of Present Illness Initial Comments: Patient rolled male with a history of a rapid heartbeat and the past who was brought in by EMS today because of chest pain is started at approximately 1830 p.m. today. He states it was retrosternal 06/27 severity associated with shortness of breath and diaphoresis. He was given aspirin at the facility he was at and route he was given 2 nitroglycerin with improvement in the chest pain from 06/27-12/28 now it's even better. He states he has have a history of VT 2016 with no stents. No other current complaints of modifying factors EKG sent from the retirement where the patient is currently residing showed a supraventricular tachycardia with a rate of around 184 bpm. MD Complaint: chest pain, other - Related Data Home Medications Medication Instructions Recorded Confirmed Albuterol Nebulized [Ventolin 2.5 mg INHALATION RT-TID PRN 11/17/22 11/17/22 Nebulized] Aspirin EC [Ecotrin Low Dose] 81 mg PO HS 11/17/22 11/17/22 Allergies Allergy/AdvReac Type Severity Reaction Status Date / Time No Known Allergies Allergy Verified 11/17/22 10:44 Review of Systems ROS Statement: Those systems with pertinent positive or pertinent negative responses have been documented in the HPI. ROS Other: All systems not noted in ROS Statement are negative. EKG Findings - EKG Results: EKG: interpreted by ERMD (EKG read upon arrival shows a normal sinus rhythm a 74 AL interval of 168 QRS duration 93 QT/QTC 390/426 this 7 appears be a normal-appearing EKG this was interpreted by me.) Past Medical History Past Medical History: COPD, Diabetes Mellitus, Deep Vein Thrombosis (DVT), Hypertension, Musculoskeletal Disorder, Pneumonia, Pulmonary Embolus (PE) Additional Past Medical History / Comment(s): "broken back 01/06/19", "heart arrhythmia's," DVT right leg, PE History of Any Multi-Drug Resistant Organisms: None Reported Past Surgical History: Orthopedic Surgery Additional Past Surgical History / Comment(s): left clavicle, jaw, Past Anesthesia/Blood Transfusion Reactions: No Reported Reaction Past Psychological History: Anxiety, Depression, Schizophrenia Smoking Status: Current every day smoker Past Alcohol Use History: Abuse, Daily, Heavy Past Drug Use History: None Reported - Past Family History Sister(s) Family Medical History: Cancer Additional Family Medical History / Comment(s): 2 sisters from cancer General Exam - General Exam Comments Initial Comments: This is a well-developed well-nourished awake alert oriented 4 male Limitations: no limitations General appearance: alert, in no apparent distress Head exam: Present: atraumatic, normocephalic, normal inspection Eye exam: Present: normal appearance, PERRL, EOMI. Absent: scleral icterus, conjunctival injection, periorbital swelling ENT exam: Present: normal exam, mucous membranes moist Neck exam: Present: normal inspection. Absent: tenderness, meningismus, lymphadenopathy Respiratory exam: Present: normal lung sounds bilaterally. Absent: respiratory distress, wheezes, rales, rhonchi, stridor Cardiovascular Exam: Present: regular rate, normal rhythm, normal heart sounds. Absent: systolic murmur, diastolic murmur, rubs, gallop, clicks GI/Abdominal exam: Present: soft, normal bowel sounds. Absent: distended, tenderness, guarding, rebound, rigid Extremities exam: Present: normal inspection, full ROM, normal capillary refill. Absent: tenderness, pedal edema, joint swelling, calf tenderness Back exam: Present: normal inspection Neurological exam: Present: alert, oriented X3, CN II-XII intact Psychiatric exam: Present: normal affect, normal mood Skin exam: Present: warm, dry, intact, normal color. Absent: rash Course Vital Signs 11/16/22 11/16/22 11/16/22 19:49 20:17 21:00 Temperature 100.2 F H Pulse Rate 75 152 H 63 Pulse Rate [ Pulse Oximetery ] Respiratory 18 Rate Blood Pressure 152/99 127/92 134/99 Blood Pressure [Left Arm] O2 Sat by Pulse 95 97 96 Oximetry 11/16/22 11/17/22 11/17/22 22:00 00:28 05:40 Temperature 98 F Pulse Rate 68 64 60 Pulse Rate [ Pulse Oximetery ] Respiratory 19 18 Rate Blood Pressure 131/83 117/71 130/89 Blood Pressure [Left Arm] O2 Sat by Pulse 94 L 98 99 Oximetry 11/17/22 11/17/22 08:00 12:00 Temperature 97.6 F 97.7 F Pulse Rate Pulse Rate [ 71 62 Pulse Oximetery ] Respiratory 18 17 Rate Blood Pressure Blood Pressure 120/77 112/78 [Left Arm] O2 Sat by Pulse 90 L 94 L Oximetry - Reevaluation(s) Reevaluation #1: 11/16/22 20:36 Patient did go back into what appear to be a supraventricular tachycardic rate of greater than 1 50 bpm. He started developing left-sided chest discomfort again. Patient was given 6 mg of adenosine with conversion to normal sinus rhythm and resolution of the chest pain. Reevaluation #2: 11/16/22 20:59 The patient's care will be endorsed to Dr. Che at our shift change. Critical Care Time Critical Care Time: Yes Total Critical Care Time: 31 Critical Care Time: Critical care time included initial presentation with history physical discussed with paramedics review of old charting was available review the materials to the retirement frequent reevaluation the patient this also included adenosine conversion of SVT with chest pain. This also included discussion with Dr. Vega regarding the findings. Disposition Clinical Impression: SVT (supraventricular tachycardia), Unstable angina, Febrile illness, acute, COVID-19 Disposition: ADMITTED IP TO THIS HOSP Condition: Stable
[2022-11-16] MEDS: ADENOSINE 3 MG/ML 2 ML VIAL IVP STA ×2 (20:18→20:40)
[2022-11-16] MEDS ORDERED: HEPARIN SODIUM 1,000 UN/ML (10ML VL) IV ONE (20:21)
[2022-11-16] MEDS ORDERED: HEPARIN SODIUM 1,000 UN/ML (10ML VL) IV PRN (20:21)
[2022-11-16] MEDS: HEPARIN SOD,PORK IN 0.45% NACL 25,000 UNIT in 0.45% NACL 1 250ML.BAG IV SCH (20:43)
[2022-11-16 20:46] LABS: Basophils # (A) 0.1 k/uL (0-0.2); Basophils % (A) 1 %; Eosinophils # (A) 0.1 k/uL (0-0.7); Eosinophils % (A) 2 %; HCT 34.6 % (39.0-53.0); HGB 12.3 gm/dL (13.0-17.5); Lymphocytes # (A) 2.4 k/uL (1.0-4.8); Lymphocytes % (A) 36 %; MCH 33.9 pg (25.0-35.0); MCHC 35.6 g/dL (31.0-37.0); MCV 95.2 fL (80.0-100.0); Monocytes # (A) 0.5 k/uL (0-1.0); Monocytes % (A) 7 %; Neutrophils # (A) 3.6 k/uL (1.3-7.7); Neutrophils % (A) 53 %; Platelet Count 248 k/uL (150-450); RBC 3.64 m/uL (4.30-5.90); WBC 6.7 k/uL (3.8-10.6)
[2022-11-16 20:56] LABS: ALT 20 U/L (4-49); AST 25 U/L (17-59); African American GFR (CKD) >90 (>60 ml/min/1.73 sqM); Albumin 4.1 g/dL (3.5-5.0); Alkaline Phosphatase 75 U/L (38-126); Anion Gap 6 mmol/L; Blood Urea Nitrogen 17 mg/dL (9-20); Calcium 8.9 mg/dL (8.4-10.2); Carbon Dioxide 25 mmol/L (22-30); Chloride 108 mmol/L (98-107); Glucose 97 mg/dL (74-99); Lipase 68 U/L (23-300); Non-African American GFR(CKD) 90 (>60 ml/min/1.73 sqM); Potassium 3.8 mmol/L (3.5-5.1); Sodium 139 mmol/L (137-145); Total Bilirubin 0.2 mg/dL (0.2-1.3); Total Protein 6.8 g/dL (6.3-8.2)
[2022-11-16 21:11] LABS: Partial Thromboplastin Time 25.8 sec (22.0-30.0); Prothrombin Time 10.7 sec (9.0-12.0)
--- NOTE | 2022-11-16 21:20 | XR ---
EXAMINATION TYPE: XR chest 2V DATE OF EXAM: 11/16/2022 9:13 PM COMPARISON: Chest radiographs from 09/19/2022 TECHNIQUE: XR chest 2V Frontal and lateral views of the chest. CLINICAL INDICATION:Male, 61 years old with history of Chest Pain; FINDINGS: Lungs/Pleura: There is no evidence of pleural effusion, focal consolidation, or pneumothorax. Pulmonary vascularity: Unremarkable. Heart/mediastinum: Cardiomediastinal silhouette is prominent in size. Musculoskeletal: No acute osseous pathology. Fixation hardware of the left clavicle is unchanged. IMPRESSION: 1. Chronic changes without evidence for acute cardiopulmonary disease/process. 2. COPD changes.
[2022-11-17] MEDS ORDERED: ACETAMINOPHEN TAB 325 MG TAB PO PRN (00:23)
[2022-11-17] MEDS ORDERED: IBUPROFEN 400 MG TAB PO PRN (00:23)
[2022-11-17] MEDS ORDERED: NALOXONE 0.4 MG/ML 1 ML VIAL IV PRN (00:23)
[2022-11-17] MEDS ORDERED: HYDROcodone/APAP 7.5-325MG 1 EACH TAB PO PRN (00:26)
[2022-11-17] MEDS: SODIUM CHLORIDE 0.9% 1,000 ML IV SCH ×2 (01:39→17:19)
[2022-11-17 07:48] LABS: Basophils % (A) 1 %; Eosinophils # (A) 0.2 k/uL (0-0.7); Eosinophils % (A) 4 %; HCT 34.2 % (39.0-53.0); HGB 11.9 gm/dL (13.0-17.5); Lymphocytes # (A) 2.3 k/uL (1.0-4.8); Lymphocytes % (A) 44 %; MCH 33.8 pg (25.0-35.0); MCHC 34.9 g/dL (31.0-37.0); Mean Platelet Volume 7.9; Monocytes # (A) 0.4 k/uL (0-1.0); Monocytes % (A) 8 %; Neutrophils # (A) 2.2 k/uL (1.3-7.7); Neutrophils % (A) 41 %; Platelet Count 242 k/uL (150-450); RBC 3.52 m/uL (4.30-5.90); WBC 5.3 k/uL (3.8-10.6)
[2022-11-17 07:52] LABS: INR 1.1 (<1.2); Prothrombin Time 11.4 sec (9.0-12.0)
--- NOTE | 2022-11-17 08:16 | P.CRDCN ---
History of Present Illness Consult date: 11/17/22 Chief complaint: Chest pain and shortness of breath History of present illness: The patient is a pleasant 61-year-old gentleman with a past medical history significant for coronary artery disease with no stenting according to him where he suffered from heart attack in the past in 2017 as well as history of hypertension and dyslipidemia and history of COPD. [facility] He was brought here because of chest pain and shortness of breath. The patient was in his usual state of health until yesterday when he suddenly started experiencing chest pain and shortness of breath associated with dizziness and lightheadedness and feeling of heart racing and fluttering. Ambulance was called and the patient was brought to the emergency department. In the ER an EKG was performed and showed narrow complex tachycardia consistent with SVT. Subsequently the patient converted to normal sinus mechanism. He was receiving at the present metoprolol at 25 mg by mouth twice a day. I am going to increase the dose to 50 mg by mouth twice a day. The first set of troponin came in to be unremarkable. The chest x-ray did not show any acute abnormalities. Past Medical History Past Medical History: COPD, Diabetes Mellitus, Deep Vein Thrombosis (DVT), Hypertension, Musculoskeletal Disorder, Pneumonia, Pulmonary Embolus (PE) Additional Past Medical History / Comment(s): "broken back 01/06/19", "heart arrhythmia's," DVT right leg, PE History of Any Multi-Drug Resistant Organisms: None Reported Past Surgical History: Orthopedic Surgery Additional Past Surgical History / Comment(s): left clavicle, jaw, Past Anesthesia/Blood Transfusion Reactions: No Reported Reaction Past Psychological History: Anxiety, Depression, Schizophrenia Smoking Status: Current every day smoker Past Alcohol Use History: Abuse, Daily, Heavy Past Drug Use History: None Reported - Past Family History Sister(s) Family Medical History: Cancer Additional Family Medical History / Comment(s): 2 sisters from cancer Medications and Allergies Home Medications Medication Instructions Recorded Confirmed Type Metoprolol Tartrate [Lopressor] 25 mg PO BID 11/07/17 10/03/20 History Warfarin Sodium [Coumadin] 5 mg PO HS 05/29/20 10/03/20 History lisinopriL [Zestril] 5 mg PO DAILY 10/03/20 10/03/20 History HYDROcodone/APAP 7.5-325MG [[place] 1 tab PO Q6HR PRN 3 Days #12 tab 03/03/21 Rx 7.5-325] Allergies Allergy/AdvReac Type Severity Reaction Status Date / Time No Known Allergies Allergy Verified 09/19/22 20:06 Physical Exam Vitals: Vital Signs Temp Pulse Resp BP Pulse Ox 11/17/22 05:40 98 F 60 18 130/89 99 11/17/22 00:28 64 19 117/71 98 11/16/22 22:00 68 131/83 94 L 11/16/22 21:00 63 134/99 96 11/16/22 20:17 152 H 127/92 97 11/16/22 19:49 100.2 F H 75 18 152/99 95 Intake and Output 11/16/22 11/17/22 11/17/22 22:59 06:59 14:59 Intake Total 89.694 Balance 89.694 Intake: Intake, IV Titration 89.694 Amount Heparin Sod,Pork in 0.45% 89.694 NaCl 25,000 unit In 0.45 % NaCl 1 250ml.bag @ 11. 73 UNITS/KG/HR 10.003 mls /hr IV .Q24H [facility] Rx#: [id number] Other: Weight 85.275 kg - Constitutional General appearance: no acute distress - Respiratory Respiratory: bilateral: CTA - Cardiovascular Rhythm: regular Heart sounds: normal: S1, S2 Results 11/17/22 07:04 11/16/22 20:28 Cardiac Enzymes 11/16/22 11/16/22 Range/Units 20:28 20:28 AST 25 (17-59) U/L Troponin I <0.012 (0.000-0.034) ng/mL Coagulation 11/16/22 11/17/22 11/17/22 Range/Units 20:28 02:17 07:04 PT 10.7 11.4 (9.0-12.0) sec APTT 25.8 45.2 H (22.0-30.0) sec CBC 11/16/22 11/17/22 Range/Units 20:28 07:04 WBC 6.7 5.3 (3.8-10.6) k/uL RBC 3.64 L 3.52 L (4.30-5.90) m/uL Hgb 12.3 L 11.9 L (13.0-17.5) gm/dL Hct 34.6 L 34.2 L (39.0-53.0) % Plt Count 248 242 (150-450) k/uL Comprehensive Metabolic Panel 11/16/22 Range/Units 20:28 Sodium 139 (137-145) mmol/L Potassium 3.8 (3.5-5.1) mmol/L Chloride 108 H (98-107) mmol/L Carbon Dioxide 25 (22-30) mmol/L BUN 17 (9-20) mg/dL Creatinine 0.93 (0.66-1.25) mg/dL Glucose 97 (74-99) mg/dL Calcium 8.9 (8.4-10.2) mg/dL AST 25 (17-59) U/L ALT 20 (4-49) U/L Alkaline Phosphatase 75 (38-126) U/L Total Protein 6.8 (6.3-8.2) g/dL Albumin 4.1 (3.5-5.0) g/dL Current Medications Generic Name Dose Route Start Last Admin Trade Name Freq PRN Reason Stop Dose Admin Acetaminophen 650 mg 11/17/22 00:23 Acetaminophen Tab 325 Mg Tab PO Q6HR PRN Mild Pain or Fever > 100.5 Hydrocodone Bitart/Acetaminophen 1 each 11/17/22 00:26 Hydrocodone/Apap 7.5-325mg 1 Each Tab PO Q6HR PRN Pain Heparin Sodium (Porcine) 0 unit 11/16/22 20:21 Heparin Sodium 1,000 Un/Ml (10ml Vl) IV PER PROTOCOL PRN Low PTT Protocol Heparin Sodium/Sodium Chloride 250 mls @ 10.003 mls/hr 11/16/22 20:30 11/17/22 05:41 25,000 unit/ Sodium Chloride IV 11.73 units/kg/hr .Q24H CHERY 10.003 mls/hr Titration Protocol 11.73 UNITS/KG/HR Sodium Chloride 1,000 mls @ 75 mls/hr 11/17/22 00:30 11/17/22 01:39 Saline 0.9% IV 75 mls/hr .[id number] CHERY Administration Ibuprofen 400 mg 11/17/22 00:23 Ibuprofen 400 Mg Tab PO Q6HR PRN Mild Pain or Fever > 100.5 Lisinopril 5 mg 11/17/22 09:00 Lisinopril 5 Mg Tab PO DAILY [facility] Metoprolol Tartrate 25 mg 11/17/22 09:00 Metoprolol Tartrate 25 Mg Tab PO BID [facility] Miscellaneous Information 0 each 11/17/22 00:38 Warfarin Per Pharmacy MISCELLANE DIRECTED PRN PER PROTOCOL Naloxone HCl 0.2 mg 11/17/22 00:23 Naloxone 0.4 Mg/Ml 1 Ml Vial IV Q2M PRN Opioid Reversal Warfarin Sodium 7.5 mg 11/17/22 18:00 Warfarin 7.5 Mg Tab PO 11/17/22 18:01 ONCE@1800 ONE Intake and Output 11/16/22 11/17/22 11/17/22 22:59 06:59 14:59 Intake Total 89.694 Balance 89.694 Intake: Intake, IV Titration 89.694 Amount Heparin Sod,Pork in 0.45% 89.694 NaCl 25,000 unit In 0.45 % NaCl 1 250ml.bag @ 11. 73 UNITS/KG/HR 10.003 mls /hr IV .Q24H [facility] Rx#: [id number] Other: Weight 85.275 kg 11/17/22 07:04 11/16/22 20:28 Assessment and Plan Assessment: Assessment Narrow tachycardia representing supraventricular tachycardia CAD Hypertension Dyslipidemia History of smoking COPD Plan Rule out acute coronary event. Obtain serial cardiac enzymes Increase the dose of metoprolol Follow-up with the patient
[2022-11-17] MEDS ORDERED: METOPROLOL TARTRATE 25 MG TAB PO SCH (09:00)
[2022-11-17] MEDS: METOPROLOL TARTRATE 50 MG TAB PO SCH ×2 (09:24→20:54)
[2022-11-17] MEDS: lisinopriL 5 MG TAB PO SCH (09:24)
[2022-11-17] MEDS ORDERED: WARFARIN 7.5 MG TAB PO ONE (18:00)
[2022-11-17 20:18] LABS: Glucose,Whole Blood 109 mg/dL (70-110)
[2022-11-17] MEDS: HEPARIN SOD,PORK IN 0.45% NACL 25,000 UNIT in 0.45% NACL 1 250ML.BAG IV SCH ×2 (20:54→23:22)
[2022-11-17] MEDS ORDERED: WARFARIN 5 MG TAB PO SCH (21:00)
[2022-11-18] MEDS: SODIUM CHLORIDE 0.9% 1,000 ML IV SCH ×2 (03:00→12:06)
[2022-11-18 05:02] LABS: INR 1.1 (<1.2); Partial Thromboplastin Time 38.4 sec (22.0-30.0); Prothrombin Time 11.2 sec (9.0-12.0)
[2022-11-18 06:11] LABS: Glucose,Whole Blood 90 mg/dL (70-110)
--- NOTE | 2022-11-18 08:19 | P.PN ---
Subjective Progress Note Date: 11/18/22 Principal diagnosis: SVT The patient is a pleasant 61-year-old gentleman with a past medical history significant for coronary artery disease with no stenting according to him where he suffered from heart attack in the past in 2017 as well as history of hypertension and dyslipidemia and history of COPD. Currently the patient is in a [place] [facility]. He was brought here because of chest pain and shortness of breath. The patient was in his usual state of health until yesterday when he suddenly started experiencing chest pain and shortness of breath associated with dizziness and lightheadedness and feeling of heart racing and fluttering. Ambulance was called and the patient was brought to the emergency department. In the ER an EKG was performed and showed narrow complex tachycardia consistent with SVT. Subsequently the patient converted to normal sinus mechanism. He was receiving at the present metoprolol at 25 mg by mouth twice a day. I am going to increase the dose to 50 mg by mouth twice a day. The first set of troponin came in to be unremarkable. The chest x-ray did not show any acute abnormalities. November [id number] The patient was seen and evaluated this morning. He remains asymptomatic. He has been maintaining normal sinus mechanism. No more episodes of SVT. He is on beta chun with metoprolol in which the dose has increased yesterday. He has only one set of troponin. We are going to obtain 2 more sets of troponin. Assessment Narrow tachycardia representing supraventricular tachycardia CAD Hypertension Dyslipidemia History of smoking COPD Plan Rule out acute coronary event. Obtain serial cardiac enzymes Continue current dose of metoprolol Follow-up with the patient Objective - Vital Signs Vital signs: Vital Signs Temp 97.9 F 11/18/22 04:00 Pulse 55 L 11/18/22 04:00 Resp 17 11/18/22 04:00 BP 107/54 11/18/22 04:00 Pulse Ox 96 11/18/22 04:00 FiO2 Intake & Output 11/17/22 11/18/22 11/18/22 18:59 06:59 18:59 Intake Total 228.160 Output Total 200 Balance 28.160 Weight 85.275 kg Intake: Intake, IV Titration 228.160 Amount Heparin Sod,Pork in 0.45% 228.160 NaCl 25,000 unit In 0.45 % NaCl 1 250ml.bag @ 11. 73 UNITS/KG/HR 10.003 mls /hr IV .Q24H [facility] Rx#: [id number] Output: Urine 200 Other: Voiding Method Toilet - Labs CBC & Chem 7: 11/17/22 07:04 11/16/22 20:28 Labs: Abnormal Lab Results - Last 24 Hours (Table) 11/18/22 Range/Units 04:27 APTT 38.4 H (22.0-30.0) sec Microbiology - Last 24 Hours (Table) 11/16/22 20:28 Blood Culture - Preliminary Blood No Growth after 24 hours
[2022-11-18] MEDS: METOPROLOL TARTRATE 50 MG TAB PO SCH ×2 (09:20→20:10)
[2022-11-18] MEDS: lisinopriL 5 MG TAB PO SCH (11:56)
[2022-11-18] MEDS: HEPARIN SOD,PORK IN 0.45% NACL 25,000 UNIT in 0.45% NACL 1 250ML.BAG IV SCH (16:05)
[2022-11-18] MEDS ORDERED: WARFARIN 5 MG TAB PO ONE (18:00)
--- NOTE | 2022-11-18 18:35 | P.HPIM ---
History of Present Illness H&P Date: 11/18/22 Chief Complaint: palpitations 61-year-old gentleman with a past medical history significant for [place] with no stenting in 2017, history of hypertension and dyslipidemia and history of COPD presented to the hospital due to palpations, worsening chest pain, dizziness and shortness of breath. He is in long-term now, ambulance was called and the patient was brought to the emergency department. In the ER an EKG was performed and showed narrow complex tachycardia consistent with SVT. Subsequently the patient converted to normal sinus mechanism. The first set of troponin came in to be unremarkable. The chest x-ray did not show any acute abnormalities. Review of Systems Complete review of system performed, pertinent positives per HPI, otherwise ne gative Past Medical History Past Medical History: COPD, Diabetes Mellitus, Deep Vein Thrombosis (DVT), Hypertension, Musculoskeletal Disorder, Pneumonia, Pulmonary Embolus (PE) Additional Past Medical History / Comment(s): "broken back 01/06/19", "heart arrhythmia's," DVT right leg, PE History of Any Multi-Drug Resistant Organisms: None Reported Past Surgical History: Orthopedic Surgery Additional Past Surgical History / Comment(s): left clavicle, jaw, Past Anesthesia/Blood Transfusion Reactions: No Reported Reaction Past Psychological History: Anxiety, Depression, Schizophrenia Smoking Status: Current every day smoker Past Alcohol Use History: Abuse, Daily, Heavy Past Drug Use History: None Reported - Past Family History Sister(s) Family Medical History: Cancer Additional Family Medical History / Comment(s): 2 sisters from cancer Medications and Allergies Home Medications Medication Instructions Recorded Confirmed Type Albuterol Nebulized [Ventolin 2.5 mg INHALATION RT-TID PRN 11/17/22 11/17/22 History Nebulized] Aspirin EC [Ecotrin Low Dose] 81 mg PO HS 11/17/22 11/17/22 History Allergies Allergy/AdvReac Type Severity Reaction Status Date / Time No Known Allergies Allergy Verified 11/17/22 10:44 Physical Exam Vitals: Vital Signs Temp Pulse Resp BP Pulse Ox 11/18/22 16:02 98.5 F 54 L 16 107/69 95 11/18/22 11:57 97.6 F 50 L 20 106/56 96 11/18/22 09:23 96.8 F L 55 L 20 101/58 96 11/18/22 04:00 97.9 F 55 L 17 107/54 96 11/17/22 23:49 98.0 F 56 L 16 116/66 95 11/17/22 20:00 98.0 F 72 16 116/72 96 Intake and Output 11/18/22 11/18/22 11/18/22 06:59 14:59 22:59 Intake Total 67.854 314.931 41.368 Output Total 200 Balance -132.146 314.931 41.368 Intake: Intake, IV Titration 67.854 314.931 41.368 Amount Heparin Sod,Pork in 0.45% 67.854 74.931 41.368 NaCl 25,000 unit In 0.45 % NaCl 1 250ml.bag @ 11. 73 UNITS/KG/HR 10.003 mls /hr IV .Q24H [facility] Rx#: [id number] Sodium Chloride 0.9% 1, 240 000 ml @ 75 mls/hr IV . [id number] [facility] Rx#:[id number] Output: Urine 200 Other: Voiding Method Toilet Toilet # Voids 3 # Bowel Movements 1 Constitutional: No acute distress, conversant, pleasant Eyes:Anicteric sclerae, moist conjunctiva, no lid-lag, PERRLA, ENMT: Oropharynx clear, no erythema, exudates Neck: Supple, FROM, no masses, or JVD, No carotid bruits, No thyromegaly Lungs: Clear to auscultation, Clear to percussion, Normal respiratory effort, no accessory muscle use Cardiovascular: Heart regular in rate and rhythm, No murmurs, gallops, or rubs, No peripheral edema Abdominal: Soft, Nontender, no guarding, rebound or rigidity, Normoactive bowel sounds, No hepatomegaly, No splenomegaly, No palpable mass Skin: Normal temperature, tone, texture, turgor, no induration, No subcutaneous nodules, No rash, lesions, No ulcers Extremities: No digital cyanosis, No clubbing, Pedal pulses intact and symmetrical, Radial pulses intact and symmetrical, No calf tenderness Psychiatric: Alert and oriented to person, place and time, appropriate affect, intact judgement Neuro: Muscles Strength 5/5 in all 4 extremities, Sensation to light touch grossly present throughout, Cranial nerves II-XII grossly intact, no focal sensory deficits Results CBC & Chem 7: 11/17/22 07:04 11/16/22 20:28 Labs: Abnormal Lab Results - Last 24 Hours (Table) 11/18/22 11/18/22 Range/Units 04:27 11:29 APTT 38.4 H 48.0 H (22.0-30.0) sec Microbiology - Last 24 Hours (Table) 11/16/22 20:28 Blood Culture - Preliminary Blood No Growth after 24 hours Thrombosis Risk Factor Assmnt - Choose All That Apply Each Risk Factor Represents 3 Points: History of DVT/PE Thrombosis Risk Factor Assessment Total Risk Factor Score: 3 Thrombosis Risk Factor Assessment Level: Moderate Risk Assessment and Plan Plan: Supraventricular tachycardia currently in sinus rhythm Per cardiology, started on metoprolol 50 mg daily Monitor on telemetry Chest pain ACS, troponin negative Essential hypertension COPD Stable Resume meds Admit to inpatient, expected length of stay more than 2 midnights.
[2022-11-18] MEDS ORDERED: ASPIRIN 81 MG PO SCH (21:00)
[2022-11-19] MEDS: SODIUM CHLORIDE 0.9% 1,000 ML IV SCH (06:48)
--- NOTE | 2022-11-19 06:52 | P.PN ---
Subjective Progress Note Date: 11/19/22 Principal diagnosis: SVT The patient is a pleasant 61-year-old gentleman with a past medical history significant for coronary artery disease with no stenting according to him where he suffered from heart attack in the past in 2017 as well as history of hypertension and dyslipidemia and history of COPD. Currently the patient is in a senior living. He was brought here because of chest pain and shortness of breath. The patient was in his usual state of health until yesterday when he suddenly started experiencing chest pain and shortness of breath associated with dizziness and lightheadedness and feeling of heart racing and fluttering. Ambulance was called and the patient was brought to the emergency department. In the ER an EKG was performed and showed narrow complex tachycardia consistent with SVT. Subsequently the patient converted to normal sinus mechanism. He was receiving at the present metoprolol at 25 mg by mouth twice a day. I am going to increase the dose to 50 mg by mouth twice a day. The first set of troponin came in to be unremarkable. The chest x-ray did not show any acute abnormalities. November [id number] The patient was seen and evaluated this morning. He remains asymptomatic. He has been maintaining normal sinus mechanism. No more episodes of SVT. He is on beta chun with metoprolol in which the dose has increased yesterday. He has only one set of troponin. We are going to obtain 2 more sets of troponin. November 19 2022 The patient has been maintaining normal sinus mechanism. He is asymptomatic. He is hemodynamically stable. The troponin came in to be unremarkable. He was started on Coumadin for history of DVT and currently he is on heparin until he achieved Coumadin thoracic level. The patient can be discharged on Lovenox. From the cardiovascular standpoint of view, we'll continue the current medical regimen and follow-up with the patient on when necessary case Assessment Narrow tachycardia representing supraventricular tachycardia CAD Hypertension Dyslipidemia History of smoking COPD History of DVT Plan Acute coronary syndrome was ruled out Continue current dose of metoprolol Follow-up with the patient on when necessary. Objective - Vital Signs Vital signs: Vital Signs Temp 97.8 F 11/19/22 04:00 Pulse 50 L 11/19/22 04:00 Resp 17 11/19/22 04:00 BP 120/62 11/19/22 04:00 Pulse Ox 98 11/19/22 04:00 FiO2 Intake & Output 11/18/22 11/18/22 11/19/22 06:59 18:59 06:59 Intake Total 228.160 596.299 Output Total 200 Balance 28.160 596.299 Intake: Intake, IV Titration 228.160 356.299 Amount Heparin Sod,Pork in 0.45% 228.160 116.299 NaCl 25,000 unit In 0.45 % NaCl 1 250ml.bag @ 11. 73 UNITS/KG/HR 10.003 mls /hr IV .Q24H [facility] Rx#: [id number] Sodium Chloride 0.9% 1, 240 000 ml @ 75 mls/hr IV . [id number] [facility] Rx#:[id number] Oral 240 Output: Urine 200 Other: Voiding Method Toilet Toilet Toilet # Voids 3 # Bowel Movements 1 - Labs CBC & Chem 7: 11/17/22 07:04 11/16/22 20:28 Labs: Abnormal Lab Results - Last 24 Hours (Table) 11/18/22 Range/Units 11:29 APTT 48.0 H (22.0-30.0) sec Microbiology - Last 24 Hours (Table) 11/16/22 20:28 Blood Culture - Preliminary Blood No Growth after 48 hours
[2022-11-19 08:00] LABS: INR 1.7 (<1.2); Prothrombin Time 16.9 sec (9.0-12.0)
[2022-11-19 08:26] VITALS: BP 106/64; PULSE 61; RESP 18; TEMP 98
[2022-11-19] MEDS: METOPROLOL TARTRATE 50 MG TAB PO SCH (08:26)
[2022-11-19] MEDS: lisinopriL 5 MG TAB PO SCH (08:26)
[2022-11-19] MEDS ORDERED: WARFARIN 5 MG TAB PO ONE (18:00)
== END 2022-11-19 13:12 | disposition home or self-care (01) | DRG 308 ==
LOC: EC 19:42 → 3SCARD 11-17 00:34
PROVIDERS: ADMIT Internal Medicine; ATTEND Family Medicine
DX: I47.1 Supraventricular tachycardia (principal); U07.1 COVID-19; I25.110 Atherosclerotic heart disease of native coronary artery with unstable angina pectoris; E11.9 Type 2 diabetes mellitus without complications; E78.5 Hyperlipidemia, unspecified; F17.210 Nicotine dependence, cigarettes, uncomplicated; F20.9 Schizophrenia, unspecified; F32.A Depression, unspecified; F41.9 Anxiety disorder, unspecified; I10 Essential (primary) hypertension; I25.2 Old myocardial infarction; J44.9 Chronic obstructive pulmonary disease, unspecified; Z79.01 Long term (current) use of anticoagulants; Z79.899 Other long term (current) drug therapy; Z86.718 Personal history of other venous thrombosis and embolism; Z86.711 Personal history of pulmonary embolism; Z87.01 Personal history of pneumonia (recurrent)
CPT/HCPCS: 36415; 71046; 80053; 83690; 83735; 83880; 84484; 85025; 85379; 85610; 85730; 87040; 87502; 87635; 93005; 96365; 96366; 96375; 99291

== ENCOUNTER 2023-05-15 18:10 | Emergency (ER) | payer OTHER ==
[2023-05-15] MEDS ORDERED: SODIUM CHLORIDE 0.9% 500 ML 500 ML IV ONE ×2 (18:15→19:25)
[2023-05-15] MEDS ORDERED: HYDROmorphone 0.5 MG/0.5 ML SYRINGE IVP STA ×2 (18:15→19:25)
[2023-05-15] MEDS ORDERED: DIPH,PERTUS(ACELL)TETVAC-LF 0.5 ML VIAL IM ONE (18:22)
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
--- NOTE | 2023-05-15 18:28 | XR ---
EXAMINATION TYPE: XR pelvis AP view DATE OF EXAM: 05/15/2023 CLINICAL HISTORY: pain TECHNIQUE: Single view the pelvis is submitted. FINDINGS: No evidence for fracture, dislocation or bony lesion. Joint spaces are well-preserved. S I joints appear symmetric. IMPRESSION: 1. No acute fracture or dislocation seen. ICD 10 NO FRACTURE, INITIAL EVALUATION
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
--- NOTE | 2023-05-15 18:31 | XR ---
EXAMINATION TYPE: XR tibia fibula LT DATE OF EXAM: 05/15/2023 CLINICAL HISTORY: pain TECHNIQUE: AP and lateral images of the left tibia and fibula are obtained. COMPARISON: None. FINDINGS: There is comminuted fracture involving the diametaphyseal region of the proximal tibia with intra-articular extension into the medial tibial plateau. There is fracture displacement of 6.9 mm. No additional fractures seen at this time. IMPRESSION: Comminuted proximal left tibial fracture with intra-articular extension.
[2023-05-15 18:32] LABS: Basophils % (A) 0 %; Eosinophils # (A) 0.3 k/uL (0-0.7); Eosinophils % (A) 6 %; HCT 39.4 % (39.0-53.0); HGB 12.7 gm/dL (13.0-17.5); Lymphocytes # (A) 2.2 k/uL (1.0-4.8); Lymphocytes % (A) 38 %; MCH 30.7 pg (25.0-35.0); MCHC 32.3 g/dL (31.0-37.0); MCV 95.1 fL (80.0-100.0); Mean Platelet Volume 7.5; Monocytes # (A) 0.3 k/uL (0-1.0); Monocytes % (A) 5 %; Neutrophils # (A) 2.8 k/uL (1.3-7.7); Neutrophils % (A) 48 %; Platelet Count 229 k/uL (150-450); RBC 4.14 m/uL (4.30-5.90); RDW 13.3 % (11.5-15.5); WBC 5.8 k/uL (3.8-10.6)
[2023-05-15 18:42] LABS: ALT 16 U/L (4-49); AST 34 U/L (17-59); African American GFR (CKD) >90 (>60 ml/min/1.73 sqM); Alcohol <10 mg/dL; Alkaline Phosphatase 85 U/L (38-126); Anion Gap 9 mmol/L; Blood Urea Nitrogen 23 mg/dL (9-20); Calcium 8.8 mg/dL (8.4-10.2); Carbon Dioxide 26 mmol/L (22-30); Chloride 103 mmol/L (98-107); Glucose 112 mg/dL (74-99); Non-African American GFR(CKD) >90 (>60 ml/min/1.73 sqM); Potassium 3.7 mmol/L (3.5-5.1); Sodium 138 mmol/L (137-145); Total Bilirubin 0.8 mg/dL (0.2-1.3); Total Protein 7.5 g/dL (6.3-8.2)
[2023-05-15 18:47] LABS: Partial Thromboplastin Time 25.7 sec (22.0-30.0); Prothrombin Time 10.9 sec (9.0-12.0)
[2023-05-15 19:20] VITALS: PULSE 141; RESP 18; TEMP 97.7
[2023-05-15] MEDS ORDERED: ADENOSINE 3 MG/ML 2 ML VIAL IVP STA ×2 (19:24→20:32)
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
[2023-05-15] MEDS ORDERED: DILTIAZEM DRIP BOLUS FROM BAG 1 MG SOLN IV ONE (19:37)
[2023-05-15] MEDS ORDERED: LORazepam 2 MG/ML INJ IV STA (19:38)
[2023-05-15] MEDS ORDERED: DILTIAZEM 125 MG in SODIUM CHLORIDE 0.9% 100 ML IV SCH (19:45)
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
[2023-05-15 20:09] VITALS: BP 142/109
[2023-05-15 20:16] LABS: Appearance,Urine Clear (Clear); Bilirubin,Urine Negative (Negative); Blood,Urine Negative (Negative); Color,Urine Colorless; Glucose,Urine (UA) Negative (Negative); Ketones,Urine Negative (Negative); Leukocyte Esterase,Urine Negative (Negative); Nitrite,Urine Negative (Negative); Protein,Urine Negative (Negative); Specific Gravity,Urine 1.013 (1.001-1.035); Urobilinogen,Urine <2.0 mg/dL (<2.0)
[2023-05-15 20:27] LABS: Amphetamine Screen,Urine Detected (NotDetected); Barbiturate Screen,Urine Not Detected (NotDetected); Benzodiazepines Screen,Urine Not Detected (NotDetected); Cocaine Screen,Urine Not Detected (NotDetected); Methadone Screen, Urine Not Detected (NotDetected); Opiate Screen,Urine Not Detected (NotDetected); Oxycodone Screen, Urine Not Detected (NotDetected); Phencyclidine Screen,Urine Not Detected (NotDetected); Tricyclic Antidepressant,Urine Not Detected (NotDetected); Urn Cannabinoid Scrn Not Detected (NotDetected)
== END 2023-05-15 23:46 | disposition other institution (70) ==
LOC: EC 18:10
DX: S82.142A Displaced bicondylar fracture of left tibia, initial encounter for closed fracture (principal); I47.1 Supraventricular tachycardia; E11.9 Type 2 diabetes mellitus without complications; I10 Essential (primary) hypertension; J44.9 Chronic obstructive pulmonary disease, unspecified; Z86.718 Personal history of other venous thrombosis and embolism; F41.9 Anxiety disorder, unspecified; F32.A Depression, unspecified; F17.200 Nicotine dependence, unspecified, uncomplicated; Z79.82 Long term (current) use of aspirin; Z79.899 Other long term (current) drug therapy; Z23 Encounter for immunization; V13.4XXA Pedal cycle driver injured in collision with car, pick-up truck or van in traffic accident, initial encounter; Y93.55 Activity, bike riding
CPT/HCPCS: 36415; 93005; 86900; 86901; 80053; 84484; 85025; 85610; 85730; 86850; 81003; 80306; 72170; 73590; 71045; 72125; 70450; 71260; 74177; 73701; 90715; 99291; 96365; 96375 ×3; 96376; 96361 ×2; 90471; 29505; G0480; J2060; J0153; J1170; Q9967; 80320

== ENCOUNTER 2023-06-03 17:15 | Emergency (ER) | payer OTHER ==
[2023-06-03 17:24] VITALS: BP 96/69; PULSE 63; RESP 18; TEMP 98.4
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
--- NOTE | 2023-06-03 19:19 | XR ---
EXAMINATION TYPE: XR tibia fibula RT DATE OF EXAM: 06/03/2023 6:56 PM INDICATION: Patient age:Male; 62 years old; Reason for study: pain; PHH. COMPARISON: 05/15/2023 TECHNIQUE: The left tibia/fibula was examined in AP and lateral projections. FINDINGS: Post fixation changes to the proximal tibia. No new fractures are identified. Overall fract ure is not significantly changed from prior. No significant callus formation. There remains soft tiss ue swelling throughout the leg. IMPRESSION: Postsurgical changes to the tibia with hardware in place and intact. There remains comminuted fractur e of the proximal tibia. No new fractures visualized. Soft tissue swelling throughout the leg.
== END 2023-06-03 20:11 | disposition home or self-care (01) ==
LOC: EC 17:15
DX: Z48.02 Encounter for removal of sutures (principal); G89.18 Other acute postprocedural pain; M79.604 Pain in right leg; J44.9 Chronic obstructive pulmonary disease, unspecified; E11.9 Type 2 diabetes mellitus without complications; I10 Essential (primary) hypertension; Z86.718 Personal history of other venous thrombosis and embolism; F41.9 Anxiety disorder, unspecified; F32.A Depression, unspecified; F17.200 Nicotine dependence, unspecified, uncomplicated; Z79.82 Long term (current) use of aspirin; Z79.899 Other long term (current) drug therapy
CPT/HCPCS: 99283

== ENCOUNTER 2023-07-20 15:03 | Emergency (ER) | payer OTHER ==
[2023-07-20] MEDS ORDERED: ADENOSINE 3 MG/ML 2 ML VIAL IVP STA (15:40)
--- NOTE | 2023-07-20 15:59 | XR ---
EXAMINATION TYPE: XR chest 2V DATE OF EXAM: 07/20/2023 3:54 PM COMPARISON: Chest radiographs from 05/15/2023 TECHNIQUE: XR chest 2V Frontal and lateral views of the chest. CLINICAL INDICATION:Male, 62 years old with history of CP; FINDINGS: Lungs/Pleura: There is no evidence of pleural effusion, focal consolidation, or pneumothorax. Chroni c senescent parenchymal change. Pulmonary vascularity: Unremarkable. Heart/mediastinum: Cardiomediastinal silhouette is enlarged and stable. Atherosclerotic calcificatio ns are seen in the aorta. Musculoskeletal: No acute osseous pathology. Chronic mid thoracic spine compression deformities with increased thoracic kyphosis. Fixation hardware involving the left clavicle redemonstrated. Remote vance ateral rib fractures. IMPRESSION: Chronic changes without acute pulmonary process.
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
[2023-07-20 16:03] LABS: Basophils % (A) 0 %; Eosinophils # (A) 0.4 k/uL (0-0.7); Eosinophils % (A) 3 %; HCT 36.6 % (39.0-53.0); Lymphocytes # (A) 1.5 k/uL (1.0-4.8); Lymphocytes % (A) 13 %; MCH 32.6 pg (25.0-35.0); MCHC 32.7 g/dL (31.0-37.0); MCV 99.5 fL (80.0-100.0); Mean Platelet Volume 7.5; Monocytes # (A) 0.7 k/uL (0-1.0); Monocytes % (A) 6 %; Neutrophils # (A) 9.3 k/uL (1.3-7.7); Neutrophils % (A) 78 %; Platelet Count 426 k/uL (150-450); RBC 3.68 m/uL (4.30-5.90); RDW 12.7 % (11.5-15.5); WBC 11.9 k/uL (3.8-10.6)
[2023-07-20 16:15] LABS: ALT 9 U/L (4-49); AST 19 U/L (17-59); African American GFR (CKD) >90 (>60 ml/min/1.73 sqM); Albumin 3.4 g/dL (3.5-5.0); Alkaline Phosphatase 95 U/L (38-126); Anion Gap 7 mmol/L; Blood Urea Nitrogen 17 mg/dL (9-20); Carbon Dioxide 28 mmol/L (22-30); Chloride 98 mmol/L (98-107); Glucose 126 mg/dL (74-99); Lipase 26 U/L (23-300); Magnesium 1.7 mg/dL (1.6-2.3); Non-African American GFR(CKD) >90 (>60 ml/min/1.73 sqM); Potassium 4.2 mmol/L (3.5-5.1); Sodium 133 mmol/L (137-145); Total Bilirubin 0.5 mg/dL (0.2-1.3)
[2023-07-20 16:16] LABS: Prothrombin Time 10.9 sec (9.0-12.0)
[2023-07-20 16:24] LABS: NT-Pro-B-Type Natriuretic Pept 450 pg/mL
[2023-07-20 16:28] VITALS: TEMP 98.4
--- NOTE | 2023-07-20 17:19 | CT ---
EXAMINATION TYPE: CT angio chest CT DLP: 321.4 mGycm, Automated exposure control for dose reduction was used. DATE OF EXAM: 07/20/2023 5:09 PM COMPARISON: Radiograph same day. 05/07/2023 CT. CLINICAL INDICATION:Male, 62 years old with history of SOB, r/o PE; SOB, R/O PE. TECHNIQUE/CONTRAST: CTA scan of the thorax is performed with IV Contrast, patient injected with 100 ml mL of Isovue 370, MIP images are created and reviewed these are created on a separate workstation.. FINDINGS: Pulmonary Artery: There is no evidence for a filling defect within the pulmonary vasculature to sugge st acute pulmonary embolism. The pulmonary artery is of normal size. Lungs/Pleura: Left lower lobe airspace consolidation with associated small pleural effusion. There is mild emphysema changes throughout the remainder the lungs. Airway: Large airways are patent. Heart: The heart is mildly enlarged in size with mild coronary artery cusp patient's. Vasculature: No evidence of aortic aneurysm. Mediastinum: No gross evidence of adenopathy. Musculoskeletal: No acute osseous abnormalities Soft Tissues: Unremarkable. Lower neck: No significant findings. Upper Abdomen: Left nonobstructing calculus measuring 12 mm. Probable right hepatic lobe subcentimete r cysts. IMPRESSION: 1. No evidence of pulmonary embolism. 2. Left lower lobe airspace consolidation concerning for pneumonia. Trace to small left parapneumonic effusion noted. 3. Mild emphysema changes throughout the lungs. 4. Mild cardiomegaly. 5. Mild coronary artery atherosclerosis. 6. Nonobstructing left renal calculus.
[2023-07-20 17:25] VITALS: RESP 18
[2023-07-20] MEDS ORDERED: LEVOFLOXACIN 750 MG TAB PO STA (17:40)
[2023-07-20 18:02] VITALS: BP 100/62; PULSE 84
== END 2023-07-20 18:09 | disposition home or self-care (01) ==
LOC: EC 15:03
DX: I47.1 Supraventricular tachycardia (principal); J18.9 Pneumonia, unspecified organism; E11.9 Type 2 diabetes mellitus without complications; I10 Essential (primary) hypertension; J44.9 Chronic obstructive pulmonary disease, unspecified; F17.200 Nicotine dependence, unspecified, uncomplicated; Z79.82 Long term (current) use of aspirin; Z79.899 Other long term (current) drug therapy
CPT/HCPCS: 99291; 96374; 36415; 93005; 85379; 83880; 80053; 83690; 83735; 84484; 85025; 85610; 85730; 71046; 71275; J0153; Q9967

== ENCOUNTER 2023-08-01 20:18 | Observation (INO) | payer OTHER ==
[2023-08-01 20:57] LABS: Basophils % (A) 0 %; Eosinophils # (A) 0.3 k/uL (0-0.7); Eosinophils % (A) 3 %; HCT 38.7 % (39.0-53.0); HGB 12.7 gm/dL (13.0-17.5); Lymphocytes # (A) 1.2 k/uL (1.0-4.8); Lymphocytes % (A) 12 %; MCH 32.9 pg (25.0-35.0); MCHC 32.9 g/dL (31.0-37.0); MCV 100.1 fL (80.0-100.0); Mean Platelet Volume 7.5; Monocytes # (A) 0.7 k/uL (0-1.0); Monocytes % (A) 7 %; Neutrophils # (A) 8.1 k/uL (1.3-7.7); Neutrophils % (A) 78 %; Platelet Count 446 k/uL (150-450); RBC 3.86 m/uL (4.30-5.90); RDW 12.4 % (11.5-15.5); WBC 10.4 k/uL (3.8-10.6)
[2023-08-01 21:04] LABS: Partial Thromboplastin Time 23.5 sec (22.0-30.0); Prothrombin Time 10.9 sec (9.0-12.0)
[2023-08-01 21:06] LABS: ALT 10 U/L (4-49); AST 21 U/L (17-59); African American GFR (CKD) >90 (>60 ml/min/1.73 sqM); Albumin 3.8 g/dL (3.5-5.0); Alkaline Phosphatase 123 U/L (38-126); Anion Gap 11 mmol/L; Blood Urea Nitrogen 13 mg/dL (9-20); Calcium 9.2 mg/dL (8.4-10.2); Carbon Dioxide 28 mmol/L (22-30); Chloride 95 mmol/L (98-107); Glucose 93 mg/dL (74-99); Magnesium 1.9 mg/dL (1.6-2.3); Non-African American GFR(CKD) >90 (>60 ml/min/1.73 sqM); Sodium 134 mmol/L (137-145); Total Bilirubin 0.6 mg/dL (0.2-1.3); Total Protein 8.1 g/dL (6.3-8.2)
--- NOTE | 2023-08-01 21:18 | XR ---
EXAMINATION TYPE: XR chest 2V DATE OF EXAM: 08/01/2023 9:08 PM CLINICAL INDICATION:Male, 62 years old with history of Chest Pain; COMPARISON: Chest radiographs from 07/20/2023. TECHNIQUE: XR chest 2V Frontal and lateral views of the chest. FINDINGS: Lungs/Pleura: Increased left-sided pleural effusion and airspace opacities/atelectasis. No right pleu ral effusion, focal consolidation pneumothorax. No left pneumothorax. Pulmonary vascularity: Unremarkable. Heart/mediastinum: Cardiomediastinal silhouette is unremarkable. Musculoskeletal: No acute osseous pathology. Fixation hardware of the left clavicle. IMPRESSION: Increase in left-sided pleural effusion and left lower lung airspace opacities.
[2023-08-01] MEDS ORDERED: FUROSEMIDE 10 MG/ML 4 ML VIAL IV STA (23:00)
[2023-08-01] MEDS ORDERED: RX INFO: IV CONTRAST WAS GIVEN 1 EACH MISC MISCELLANE PRN (23:05)
[2023-08-02] MEDS ORDERED: NALOXONE 0.4 MG/ML 1 ML VIAL IV PRN (00:38)
--- NOTE | 2023-08-02 00:38 | ED ---
General Adult HPI - General Chief complaint: Chest Pain Stated complaint: Chest Pain Time Seen by Provider: 08/01/23 21:29 Source: patient Mode of arrival: ambulatory Limitations: no limitations - History of Present Illness Initial comments: This is a 62-year-old male with a past medical history including SVT, COPD, diabetes and hypertension presents emergency department for left-sided chest pain. The patient stated that he had continued left sided chest pain over the last 1 day and was consistent with the patient's previous history when he had SVT. The patient did state that he did not feel like he had any palpitations but stated that it continued left-sided chest wall pain that has not improved. The patient also stated they increasing shortness of breath. The patient denied any other acute pain or complaints at this time. - Related Data Home Medications Medication Instructions Recorded Confirmed Albuterol Nebulized [Ventolin 2.5 mg INHALATION RT-TID PRN 11/17/22 11/17/22 Nebulized] Aspirin EC [Ecotrin Low Dose] 81 mg PO HS 11/17/22 11/17/22 Previous Rx's Medication Instructions Recorded Metoprolol Tartrate [Lopressor] 25 mg PO BID 30 Days #60 tablet 11/19/22 Warfarin [Coumadin] 5 mg PO DAILY 5 Days #5 tab 11/19/22 lisinopriL [Zestril] 5 mg PO DAILY 30 Days #30 tab 11/19/22 methocarbamoL [Robaxin-750] 1,500 mg PO TID #30 tab 01/20/23 Levofloxacin [Levaquin] 750 mg PO DAILY 1 Days #4 tab 07/20/23 Allergies Allergy/AdvReac Type Severity Reaction Status Date / Time No Known Allergies Allergy Verified 07/20/23 15:22 Review of Systems ROS Statement: Those systems with pertinent positive or pertinent negative responses have been documented in the HPI. ROS Other: All systems not noted in ROS Statement are negative. Past Medical History Past Medical History: COPD, Diabetes Mellitus, Deep Vein Thrombosis (DVT), Hypertension, Musculoskeletal Disorder, Pneumonia, Pulmonary Embolus (PE) Additional Past Medical History / Comment(s): "broken back 01/06/19", "heart arrhythmia's," DVT right leg, PE History of Any Multi-Drug Resistant Organisms: None Reported Past Surgical History: Orthopedic Surgery Additional Past Surgical History / Comment(s): left clavicle, jaw, lt leg Past Anesthesia/Blood Transfusion Reactions: No Reported Reaction Past Psychological History: Anxiety, Depression, Schizophrenia Smoking Status: Current every day smoker Past Alcohol Use History: Abuse, Daily, Heavy Past Drug Use History: None Reported - Past Family History Sister(s) Family Medical History: Cancer Additional Family Medical History / Comment(s): 2 sisters from cancer General Exam Limitations: no limitations General appearance: alert, in no apparent distress Head exam: Present: atraumatic, normocephalic, normal inspection Eye exam: Present: normal appearance, PERRL Pupils: Present: normal accommodation ENT exam: Present: normal exam, normal oropharynx, mucous membranes moist Neck exam: Present: normal inspection, full ROM Respiratory exam: Present: normal lung sounds bilaterally, chest wall tenderness (TTP over the left lateral chest wall) Cardiovascular Exam: Present: regular rate, normal rhythm, normal heart sounds GI/Abdominal exam: Present: soft, normal bowel sounds Extremities exam: Present: normal inspection, full ROM, other (L knee immobilizer in place) Back exam: Present: normal inspection, full ROM Neurological exam: Present: alert, oriented X3, CN II-XII intact Psychiatric exam: Present: normal affect, normal mood Skin exam: Present: warm, dry Course Vital Signs 08/01/23 08/01/23 20:22 22:07 Temperature 97.9 F Pulse Rate 77 79 Respiratory 18 20 Rate Blood Pressure 126/73 102/56 O2 Sat by Pulse 96 90 L Oximetry EKG Findings - EKG Comments: EKG Findings:: An EKG was obtained and was interpreted by myself showing a rate of 71, VT interval 164, QR holiness of 101 and QTC of 435. This EKG showed a normal sinus rhythm with no ST segment elevation or depression noted. Medical Decision Making - Medical Decision Making Was pt. sent in by a medical professional or institution (, PA, MACHINE LACER, urgent care, hospital, or senior living...) When possible be specific @ -No Did you speak to anyone other than the patient for history (EMS, parent, family, police, friend...)? What history was obtained from this source @ -No Did you review nursing and triage notes (agree or disagree)? Why? @ -I reviewed and agree with nursing and triage notes Were old charts reviewed (outside hosp., previous admission, EMS record, old EKG, old radiological studies, urgent care reports/EKG's, senior living records)? Report findings @ -No old charts were reviewed Differential Diagnosis (chest pain, altered mental status, abdominal pain women, abdominal pain men, vaginal bleeding, weakness, fever, dyspnea, syncope, headache, dizziness, GI bleed, back pain, seizure, CVA, palpatations, mental health)? @ -CHF exacerbation, pneumonia, pneumothorax, chest wall muscle strain EKG interpreted by me (3pts min.). @ -As above X-rays interpreted by me (1pt min.). @ -Chest x-ray was obtained and was interpreted by myself showing increase in left-sided pleural effusion and left lower lung airspace opacities. CT interpreted by me (1pt min.). @ -CT of the chest was obtained however was pending at this time. U/S interpreted by me (1pt. min.). @ -None done What testing was considered but not performed or refused? (CT, X-rays, U/S, labs)? Why? @ -None What meds were considered but not given or refused? Why? @ -None Did you discuss the management of the patient with other professionals (professionals i.e. , PA, MACHINE LACER, lab, RT, psych nurse, social media strategist, veneer splicer, teacher, command center officer, telephonic nurse case manager)? Give summary @ -Yes, patient's primary care physician was contacted and accepted the patient for observation. Was smoking cessation discussed for >3mins.? @ -No Was critical care preformed (if so, how long)? @ -No Were there social determinants of health that impacted care today? How? (Homelessness, low income, unemployed, alcoholism, drug addiction, transportation, low edu. Level, literacy, decrease access to med. care, [place] [facility], rehab)? @ -No Was there de-escalation of care discussed even if they declined (Discuss DNR or withdrawal of care, Hospice)? DNR status @ -No What co-morbidities impacted this encounter? (DM, HTN, Smoking, COPD, CAD, Cancer, CVA, ARF, Chemo, Hep., AIDS, mental health diagnosis, sleep apnea, morbid obesity)? @ -SVT, COPD, diabetes, hypertension Was patient admitted / discharged? Hospital course, mention meds given and route, prescriptions, significant lab abnormalities, going to OR and other pertinent info. @ -The patient was seen and evaluated emergency department. Physical exam, the patient was resting in bed without any acute distress. Vital signs admission w ere stable. On exam, the patient did have reproducibility of pain on palpation of the left side of the chest however workup did demonstrate increasing pleural effusion as well as CHF exacerbation. The patient was given a dose of Lasix. The patient's primary care physician was contacted and accepted the patient for observation and did recommend a CT of the chest to determine the extent of the pleural effusion. The patient was told this plan and was agreeable. The patient was placed observation in stable condition. Undiagnosed new problem with uncertain prognosis? @ -No Drug Therapy requiring intensive monitoring for toxicity (Heparin, Nitro, Insulin, Cardizem)? @ -No Were any procedures done? @ -No Diagnosis/symptom? @ -Left pleural effusion, CHF exacerbation Acute, or Chronic, or Acute on Chronic? @ -Acute on chronic Uncomplicated (without systemic symptoms) or Complicated (systemic symptoms)? @ -Uncomplicated Side effects of treatment? @ -No Exacerbation, Progression, or Severe Exacerbation? @ -No Poses a threat to life or bodily function? How? (Chest pain, [place], [place], pneumonia, PE, COPD, DKA, ARF, appy, cholecystitis, CVA, Diverticulitis, Homicidal, Suici skip, threat to staff... and all critical care pts) @ -No - Lab Data Result diagrams: 08/01/23 20:27 08/01/23 20:27 Lab Results 08/01/23 08/01/23 08/01/23 Range/Units 20:27 20:27 20:27 WBC 10.4 (3.8-10.6) k/uL RBC 3.86 L (4.30-5.90) m/uL Hgb 12.7 L (13.0-17.5) gm/dL Hct 38.7 L (39.0-53.0) % MCV 100.1 H (80.0-100.0) fL MCH 32.9 (25.0-35.0) pg MCHC 32.9 (31.0-37.0) g/dL RDW 12.4 (11.5-15.5) % Plt Count 446 (150-450) k/uL MPV 7.5 Neutrophils % 78 % Lymphocytes % 12 % Monocytes % 7 % Eosinophils % 3 % Basophils % 0 % Neutrophils # 8.1 H (1.3-7.7) k/uL Lymphocytes # 1.2 (1.0-4.8) k/uL Monocytes # 0.7 (0-1.0) k/uL Eosinophils # 0.3 (0-0.7) k/uL Basophils # 0.0 (0-0.2) k/uL PT 10.9 (9.0-12.0) sec INR 1.0 (<1.2) APTT 23.5 (22.0-30.0) sec Sodium 134 L (137-145) mmol/L Potassium 4.0 (3.5-5.1) mmol/L Chloride 95 L (98-107) mmol/L Carbon Dioxide 28 (22-30) mmol/L Anion Gap 11 mmol/L BUN 13 (9-20) mg/dL Creatinine 0.84 (0.66-1.25) mg/dL Est GFR (CKD-EPI)AfAm >90 (>60 ml/min/1.73 sqM) Est GFR (CKD-EPI)NonAf >90 (>60 ml/min/1.73 sqM) Glucose 93 (74-99) mg/dL Calcium 9.2 (8.4-10.2) mg/dL Magnesium 1.9 (1.6-2.3) mg/dL Total Bilirubin 0.6 (0.2-1.3) mg/dL AST 21 (17-59) U/L ALT 10 (4-49) U/L Alkaline Phosphatase 123 (38-126) U/L Troponin I (0.000-0.034) ng/mL NT-Pro-B Natriuret Pep pg/mL Total Protein 8.1 (6.3-8.2) g/dL Albumin 3.8 (3.5-5.0) g/dL 08/01/23 08/01/23 Range/Units 20:27 22:05 WBC (3.8-10.6) k/uL RBC (4.30-5.90) m/uL Hgb (13.0-17.5) gm/dL Hct (39.0-53.0) % MCV (80.0-100.0) fL MCH (25.0-35.0) pg MCHC (31.0-37.0) g/dL RDW (11.5-15.5) % Plt Count (150-450) k/uL MPV Neutrophils % % Lymphocytes % % Monocytes % % Eosinophils % % Basophils % % Neutrophils # (1.3-7.7) k/uL Lymphocytes # (1.0-4.8) k/uL Monocytes # (0-1.0) k/uL Eosinophils # (0-0.7) k/uL Basophils # (0-0.2) k/uL PT (9.0-12.0) sec INR (<1.2) APTT (22.0-30.0) sec Sodium (137-145) mmol/L Potassium (3.5-5.1) mmol/L Chloride (98-107) mmol/L Carbon Dioxide (22-30) mmol/L Anion Gap mmol/L BUN (9-20) mg/dL Creatinine (0.66-1.25) mg/dL Est GFR (CKD-EPI)AfAm (>60 ml/min/1.73 sqM) Est GFR (CKD-EPI)NonAf (>60 ml/min/1.73 sqM) Glucose (74-99) mg/dL Calcium (8.4-10.2) mg/dL Magnesium (1.6-2.3) mg/dL Total Bilirubin (0.2-1.3) mg/dL AST (17-59) U/L ALT (4-49) U/L Alkaline Phosphatase (38-126) U/L Troponin I <0.012 (0.000-0.034) ng/mL NT-Pro-B Natriuret Pep 2010 pg/mL Total Protein (6.3-8.2) g/dL Albumin (3.5-5.0) g/dL Disposition Clinical Impression: CHF exacerbation, Pleural effusion Disposition: ADMITTED IP TO THIS [facility] Condition: Stable Is patient prescribed a controlled substance at d/c from ED?: No Referrals: Sudhir Bobo MD [Primary Care Provider] - 1-2 days Time of Disposition: 00:05 Decision to Admit Reason: Admit from EC Decision Date: 08/02/23 Decision Time: 00:05
--- NOTE | 2023-08-02 01:06 | CT ---
EXAM: CT Chest With Intravenous Contrast CLINICAL HISTORY: ITS.REASON CT Reason: Chest pain, worsening effusion TECHNIQUE: Axial computed tomography images of the chest with intravenous contrast. CTDI is 9.5 mGy and DLP is 405 mGy-cm. This CT exam was performed using one or more of the following dose reduction techniques: automated exposure control, adjustment of the mA and/or kV according to patient size, and/or use of iterative reconstruction technique. COMPARISON: CT chest 07/20/23 FINDINGS: There is a small loculated left pleural effusion, increased in volume from prior exam. When compared to prior, the effusion is more loculated and now extends along the left pulmonary fissure. There is airspace disease within the left lower lobe and lingula. There is trace right pleural effusion with dependent subsegmental atelectasis at the right lung base. No pneumothorax is present. Aerated portions of the bilateral lung arauz demonstrate no evidence of parenchymal mass. Thoracic aorta and main pulmonary artery are normal. Coronary arteries are calcified. Heart size is borderline. There is no pericardial effusion. There is no adenopathy. There are degenerative changes of both glenohumeral joints. Fixation hardware is present in the left clavicle. There is an old, healed sternal body fracture. There is a chronic T8 compression fracture. There is no acute fracture or dislocation. Visualized upper abdomen demonstrates a nonobstructing 9 mm left kidney stone. IMPRESSION: Increasing volume of small left pleural effusion, now appearing loculated and extending along the pulmonary fissure. Airspace disease in the left lower lobe and lingula, compressive atelectasis and/or pneumonia. Correlate clinically.
[2023-08-02 07:24] VITALS: PULSE 82; RESP 18
[2023-08-02 08:56] VITALS: BP 108/69; TEMP 98.7
== END 2023-08-02 09:02 | disposition left against medical advice (07) ==
LOC: EC 20:18 → 6NMEDSUR 08-02 00:39
PROVIDERS: ADMIT Family Medicine; ATTEND Family Medicine
DX: R07.89 Other chest pain (principal); I11.0 Hypertensive heart disease with heart failure; I50.9 Heart failure, unspecified; I47.1 Supraventricular tachycardia; J44.9 Chronic obstructive pulmonary disease, unspecified; E11.9 Type 2 diabetes mellitus without complications; F20.9 Schizophrenia, unspecified; F32.A Depression, unspecified; F41.9 Anxiety disorder, unspecified; F17.200 Nicotine dependence, unspecified, uncomplicated; Z53.29 Procedure and treatment not carried out because of patient's decision for other reasons; Z79.82 Long term (current) use of aspirin; Z79.01 Long term (current) use of anticoagulants; Z79.899 Other long term (current) drug therapy; Z87.01 Personal history of pneumonia (recurrent); Z86.711 Personal history of pulmonary embolism; Z86.718 Personal history of other venous thrombosis and embolism; Z98.890 Other specified postprocedural states; Z80.9 Family history of malignant neoplasm, unspecified
CPT/HCPCS: 96374; 99285; 36415; 93005; 83880; 80053; 83735; 84484; 85025; 85610; 85730; 71046; 71260; G0378; J1940; Q9967

== ENCOUNTER 2023-11-21 01:48 | Emergency (ER) | payer OTHER ==
[2023-11-21 02:33] VITALS: RESP 18
[2023-11-21 02:46] LABS: Basophils # (A) 0.1 k/uL (0-0.2); Basophils % (A) 1 %; Eosinophils # (A) 0.4 k/uL (0-0.7); Eosinophils % (A) 3 %; Lymphocytes # (A) 1.4 k/uL (1.0-4.8); Lymphocytes % (A) 11 %; MCH 32.7 pg (25.0-35.0); MCHC 33.4 g/dL (31.0-37.0); MCV 97.7 fL (80.0-100.0); Mean Platelet Volume 7.4; Monocytes # (A) 0.7 k/uL (0-1.0); Monocytes % (A) 6 %; Neutrophils # (A) 9.4 k/uL (1.3-7.7); Neutrophils % (A) 78 %; Platelet Count 254 k/uL (150-450); RDW 12.9 % (11.5-15.5); WBC 12.1 k/uL (3.8-10.6)
--- NOTE | 2023-11-21 02:48 | ED ---
General Adult HPI - General Source: patient Mode of arrival: ambulatory Limitations: no limitations <Arnulfo Vizcarra - Last Filed: 11/21/23 02:48> <Madhu Song - Last Filed: 11/21/23 04:16> - General Source: patient, RN notes reviewed Mode of arrival: ambulatory Limitations: no limitations <Brady Delgadillo - Last Filed: 11/21/23 09:09> - General Chief complaint: Upper Respiratory Infection Stated complaint: Cough - History of Present Illness Initial comments: 62-year-old male presents to the ED with a chief complaint of shortness of breath. Patient notes over the past few days has had cough productive with yellow sputum and states that he has been getting progressively short of breath with this as well. (Arnulfo Vizcarra) Patient is a pleasant 62-year-old male presenting to the emergency department with concern for cough. Cough is been present for around 2 weeks. Patient does have occasional yellow sputum. Patient states he may feel a little bit short of breath. Patient is unclear of any chronic lung disease however states he used to take inhalers. Patient lost his inhaler. Patient also lost his blood pressure medication. No fevers. (Brady Delgadillo) - Related Data Home Medications Medication Instructions Recorded Confirmed Metoprolol Tartrate [Lopressor] 25 mg PO BID 08/02/23 08/03/23 Previous Rx's Medication Instructions Recorded lisinopriL [Zestril] 5 mg PO DAILY 30 Days #30 tab 11/19/22 Acetaminophen Tab [Tylenol] 650 mg PO Q6HR PRN tab 08/12/23 Albuterol Inhaler [Ventolin Hfa 2 puff INHALATION Q6H PRN 30 Days 08/12/23 Inhaler] #1 each Amoxic-Pot Clav 875-125Mg 1 tab PO Q12HR 14 Days #28 tab 08/12/23 [Augmentin 875-125] Budesonide-Formot 160-4.5 Mcg 2 puff INHALATION BID #10.2 gm 08/12/23 [Symbicort 160-4.5 Mcg Inhaler] HYDROcodone/APAP 7.5-325MG [[place] 1 tab PO Q6HR PRN 3 Days #12 tab 08/12/23 7.5-325] Nicotine 21Mg/24Hr Patch [Habitrol] 1 patch TRANSDERM DAILY #30 patch 08/12/23 Thiamine [Vitamin B-1] 100 mg PO DAILY #30 tab 08/12/23 Albuterol Inhaler [Ventolin Hfa 2 puff INHALATION Q4HR PRN #1 each 11/21/23 Inhaler] Metoprolol Tartrate [Lopressor] 25 mg PO BID #14 tablet 11/21/23 lisinopriL [Zestril] 5 mg PO DAILY #7 tab 11/21/23 predniSONE [Deltasone] 20 mg PO BID #10 tab 11/21/23 Allergies Allergy/AdvReac Type Severity Reaction Status Date / Time No Known Allergies Allergy Verified 11/21/23 02:22 Review of Systems ROS Other: All systems not noted in ROS Statement are negative. <Arnulfo Vizcarra - Last Filed: 11/21/23 02:48> ROS Other: All systems not noted in ROS Statement are negative. <Madhu Song - Last Filed: 11/21/23 04:16> ROS Other: All systems not noted in ROS Statement are negative. Constitutional: Denies: fever Eyes: Denies: eye pain ENT: Reports: congestion. Denies: ear pain Respiratory: Reports: cough Cardiovascular: Denies: chest pain Endocrine: Denies: fatigue Gastrointestinal: Denies: abdominal pain Genitourinary: Denies: dysuria Musculoskeletal: Denies: back pain Skin: Denies: rash <Brady Delgadillo - Last Filed: 11/21/23 09:09> ROS Statement: Those systems with pertinent positive or pertinent negative responses have been documented in the HPI. Past Medical History Past Medical History: COPD, Diabetes Mellitus, Deep Vein Thrombosis (DVT), Hypertension, Musculoskeletal Disorder, Pneumonia, Pulmonary Embolus (PE) Additional Past Medical History / Comment(s): "broken back 01/06/19", "heart arrhythmia's," DVT right leg, PE History of Any Multi-Drug Resistant Organisms: None Reported Past Surgical History: Orthopedic Surgery Additional Past Surgical History / Comment(s): left clavicle, jaw, lt leg Past Anesthesia/Blood Transfusion Reactions: No Reported Reaction Past Psychological History: Anxiety, Depression, Schizophrenia Smoking Status: Current every day smoker Past Alcohol Use History: Abuse, Daily, Heavy Past Drug Use History: None Reported - Past Family History Sister(s) Family Medical History: Cancer Additional Family Medical History / Comment(s): 2 sisters from cancer Mother Family Medical History: Coronary Artery Disease (CAD) Father Additional Family Medical History / Comment(s): Alcoholic <Arnulfo Vizcarra - Last Filed: 11/21/23 02:48> General Exam Limitations: no limitations <CarmitaArnulfo - Last Filed: 11/21/23 02:48> Limitations: no limitations General appearance: alert, in no apparent distress Head exam: Present: normocephalic Eye exam: Present: normal appearance Neck exam: Present: normal inspection Respiratory exam: Present: normal lung sounds bilaterally Cardiovascular Exam: Present: regular rate, normal rhythm GI/Abdominal exam: Present: soft. Absent: tenderness Extremities exam: Present: normal inspection. Absent: pedal edema, calf tenderness Neurological exam: Present: alert Psychiatric exam: Present: normal affect, normal mood Skin exam: Present: normal color <Brady Delgadillo - Last Filed: 11/21/23 09:09> - General Exam Comments Initial Comments: Visual Physical Exam Vital signs reviewed General: Well-appearing, nontoxic, no acute distress. Head: Normocephalic, atraumatic Eyes: PERRLA, EOMI ENT: Airway patent Chest: Nonlabored breathing Skin: No visual rash, normal skin tone Neuro: Alert and oriented 3 Musculoskeletal: No gross abnormalities (Arnulfo Vizcarra) Course Vital Signs 11/21/23 02:22 Temperature 98.7 F Pulse Rate 82 Respiratory 18 Rate Blood Pressure 117/70 O2 Sat by Pulse 92 L Oximetry EKG Findings - EKG Comments: EKG Findings:: EKG is sinus 76 VA 173 QRS 100 QTc 440 <Madhu Song - Last Filed: 11/21/23 04:16> Medical Decision Making - Lab Data Result diagrams: 11/21/23 02:39 <Arnulfo Vizcarra - Last Filed: 11/21/23 02:48> - Lab Data Result diagrams: 11/21/23 02:39 11/21/23 02:39 <Madhu Song - Last Filed: 11/21/23 04:16> - Lab Data Result diagrams: 11/21/23 02:39 11/21/23 02:39 <Brady Delgadillo - Last Filed: 11/21/23 09:09> - Medical Decision Making Quicknote portion performed. Signed Arnulfo Vizcarra PA-C (Arnulfo Vizcarra) Was pt. sent in by a medical professional or institution ([facility]T Vasquez, FILM SPOOLER, urgent care, hospital, or retirement...) When possible be specific @ -No Did you speak to anyone other than the patient for history (EMS, parent, family, police, friend...)? What history was obtained from this source @ -No Did you review nursing and triage notes (agree or disagree)? Why? @ -I reviewed and agree with nursing and triage notes Were old charts reviewed (outside hosp., previous admission, EMS record, old EKG, old radiological studies, urgent care reports/EKG's, retirement records)? Report findings @ -Previous chest x-ray reviewed. Differential Diagnosis (chest pain, altered mental status, abdominal pain women, abdominal pain men, vaginal bleeding, weakness, fever, dyspnea, syncope, headache, dizziness, GI bleed, back pain, seizure, CVA, palpatations, mental health, musculoskeletal)? @ -Differential Dyspnea: Coronary syndrome, arrhythmia, tamponade, asthma, COPD, pulmonary embolism, pneumonia, pneumothorax, pulmonary effusion, anaphylaxis, diabetic ketoacidosis, flailed chest, pulmonary contusion, diaphragmatic rupture, anemia, neuromuscular, this is not meant to be an all-inclusive list. EKG interpreted by me (3pts min.). @ -As above X-rays interpreted by me (1pt min.). @ -Chest x-ray shows chronic changes. No acute process. CT interpreted by me (1pt min.). @ -None done U/S interpreted by me (1pt. min.). @ -None done What testing was considered but not performed or refused? (CT, X-rays, U/S, labs)? Why? @ -None What meds were considered but not given or refused? Why? @ -None Did you discuss the management of the patient with other professionals (professionals i.e. MATT Vasquez, FILM SPOOLER, lab, RT, psych nurse, social welfare clerk, director of exhibit development, teacher, radio officer, director case management)? Give summary @ -No Was smoking cessation discussed for >3mins.? @ -No Was critical care preformed (if so, how long)? @ -No Were there social determinants of health that impacted care today? How? (Homelessness, low income, unemployed, alcoholism, drug addiction, transportation, low edu. Level, literacy, decrease access to med. care, [facility], rehab)? @ -No Was there de-escalation of care discussed even if they declined (Discuss DNR or withdrawal of care, Hospice)? DNR status @ -No What co-morbidities impacted this encounter? (DM, HTN, Smoking, COPD, CAD, Cancer, CVA, ARF, Chemo, Hep., AIDS, mental health diagnosis, sleep apnea, morbid obesity)? @ -None Was patient admitted / discharged? Hospital course, mention meds given and route, prescriptions, significant lab abnormalities, going to OR and other pertinent info. @ -Patient is updated on results and happy to be discharged home. Prescriptions will be provided and patient recommended follow-up with primary care physician. Patient states he is in the process of getting a new PCP. Undiagnosed new problem with uncertain prognosis? @ -No Drug Therapy requiring intensive monitoring for toxicity (Heparin, Nitro, Insulin, Cardizem)? @ -No Were any procedures done? @ -No Diagnosis/symptom? @ - bronchitis Acute, or Chronic, or Acute on Chronic? @ -[Acute Uncomplicated (without systemic symptoms) or Complicated (systemic symptoms)? @ -[efault]Side effects of treatment? @ -[o]Exacerbation, Progression, or Severe Exacerbation? @ -[o]Poses a threat to life or bodily function? How? (Chest pain, [place], [place], pneumonia, PE, COPD, DKA, ARF, appy, cholecystitis, CVA, Diverticulitis, Homicidal, Suicidal, threat to staff... and all critical care pts) @ -[o] (Brady Delgadillo) - Lab Data Lab Results 11/21/23 11/21/23 11/21/23 Range/Units 02:39 02:39 02:39 WBC 12.1 H (3.8-10.6) k/uL RBC 4.00 L (4.30-5.90) m/uL Hgb 13.0 (13.0-17.5) gm/dL Hct 39.0 (39.0-53.0) % MCV 97.7 (80.0-100.0) fL MCH 32.7 (25.0-35.0) pg MCHC 33.4 (31.0-37.0) g/dL RDW 12.9 (11.5-15.5) % Plt Count 254 (150-450) k/uL MPV 7.4 Neutrophils % 78 % Lymphocytes % 11 % Monocytes % 6 % Eosinophils % 3 % Basophils % 1 % Neutrophils # 9.4 H (1.3-7.7) k/uL Lymphocytes # 1.4 (1.0-4.8) k/uL Monocytes # 0.7 (0-1.0) k/uL Eosinophils # 0.4 (0-0.7) k/uL Basophils # 0.1 (0-0.2) k/uL PT 11.3 (10.0-12.5) sec INR 1.0 (<1.2) APTT 27.0 (22.0-30.0) sec Sodium 138 (137-145) mmol/L Potassium 3.9 (3.5-5.1) mmol/L Chloride 100 (98-107) mmol/L Carbon Dioxide 27 (22-30) mmol/L Anion Gap 11 mmol/L BUN 25 H (9-20) mg/dL Creatinine 0.92 (0.66-1.25) mg/dL Est GFR (CKD-EPI)AfAm >90 (>60 ml/min/1.73 sqM) Est GFR (CKD-EPI)NonAf >90 (>60 ml/min/1.73 sqM) Glucose 141 H (74-99) mg/dL Calcium 9.0 (8.4-10.2) mg/dL Total Bilirubin 0.5 (0.2-1.3) mg/dL AST 29 (17-59) U/L ALT 16 (4-49) U/L Alkaline Phosphatase 89 (38-126) U/L Troponin I (0.000-0.034) ng/mL NT-Pro-B Natriuret Pep 278 pg/mL Total Protein 7.6 (6.3-8.2) g/dL Albumin 4.0 (3.5-5.0) g/dL Influenza Type A (PCR) (Not Detectd) Influenza Type B (PCR) (Not Detectd) RSV (PCR) (Not Detectd) SARS-CoV-2 (PCR) (Not Detectd) 11/21/23 11/21/23 Range/Units 02:39 04:28 WBC (3.8-10.6) k/uL RBC (4.30-5.90) m/uL Hgb (13.0-17.5) gm/dL Hct (39.0-53.0) % MCV (80.0-100.0) fL MCH (25.0-35.0) pg MCHC (31.0-37.0) g/dL RDW (11.5-15.5) % Plt Count (150-450) k/uL MPV Neutrophils % % Lymphocytes % % Monocytes % % Eosinophils % % Basophils % % Neutrophils # (1.3-7.7) k/uL Lymphocytes # (1.0-4.8) k/uL Monocytes # (0-1.0) k/uL Eosinophils # (0-0.7) k/uL Basophils # (0-0.2) k/uL PT (10.0-12.5) sec INR (<1.2) APTT (22.0-30.0) sec Sodium (137-145) mmol/L Potassium (3.5-5.1) mmol/L Chloride (98-107) mmol/L Carbon Dioxide (22-30) mmol/L Anion Gap mmol/L BUN (9-20) mg/dL Creatinine (0.66-1.25) mg/dL Est GFR (CKD-EPI)AfAm (>60 ml/min/1.73 sqM) Est GFR (CKD-EPI)NonAf (>60 ml/min/1.73 sqM) Glucose (74-99) mg/dL Calcium (8.4-10.2) mg/dL Total Bilirubin (0.2-1.3) mg/dL AST (17-59) U/L ALT (4-49) U/L Alkaline Phosphatase (38-126) U/L Troponin I <0.012 (0.000-0.034) ng/mL NT-Pro-B Natriuret Pep pg/mL Total Protein (6.3-8.2) g/dL Albumin (3.5-5.0) g/dL Influenza Type A (PCR) Not Detected (Not Detectd) Influenza Type B (PCR) Not Detected (Not Detectd) RSV (PCR) Not Detected (Not Detectd) SARS-CoV-2 (PCR) Not Detected (Not Detectd) Disposition <Arnulfo Vizcarra - Last Filed: 11/21/23 02:48> <Madhu Song - Last Filed: 11/21/23 04:16> Is patient prescribed a controlled substance at d/c from ED?: No Time of Disposition: 09:03 <Brady Delgadillo - Last Filed: 11/21/23 09:09> Clinical Impression: Bronchitis Disposition: HOME SELF-CARE Condition: Stable Instructions (If sedation given, give patient instructions): Acute Bronchitis (ED) Additional Instructions: Please do follow-up with your primary care physician in the next one or 2 days for recheck, number provided. Prescriptions have been sent to pharmacy. Return for difficulty breathing, worsening symptoms, fevers, or other concerns. Prescriptions: predniSONE [Deltasone] 20 mg PO BID #10 tab Metoprolol Tartrate [Lopressor] 25 mg PO BID #14 tablet Albuterol Inhaler [Ventolin Hfa Inhaler] 2 puff INHALATION Q4HR PRN #1 each PRN Reason: Dyspnea lisinopriL [Zestril] 5 mg PO DAILY #7 tab Referrals: Randy Giraldo MD [Primary Care Provider] - 1-2 days Forms: [facility]
[2023-11-21 03:01] LABS: ALT 16 U/L (4-49); AST 29 U/L (17-59); African American GFR (CKD) >90 (>60 ml/min/1.73 sqM); Alkaline Phosphatase 89 U/L (38-126); Anion Gap 11 mmol/L; Blood Urea Nitrogen 25 mg/dL (9-20); Carbon Dioxide 27 mmol/L (22-30); Chloride 100 mmol/L (98-107); Glucose 141 mg/dL (74-99); Non-African American GFR(CKD) >90 (>60 ml/min/1.73 sqM); Potassium 3.9 mmol/L (3.5-5.1); Sodium 138 mmol/L (137-145); Total Bilirubin 0.5 mg/dL (0.2-1.3); Total Protein 7.6 g/dL (6.3-8.2)
[2023-11-21 03:02] LABS: Prothrombin Time 11.3 sec (10.0-12.5)
[2023-11-21 03:07] LABS: NT-Pro-B-Type Natriuretic Pept 278 pg/mL
--- NOTE | 2023-11-21 05:59 | XR ---
EXAM: XR Chest, 2 Views CLINICAL HISTORY: ITS.REASON XR Reason: r/o pna TECHNIQUE: Frontal and lateral views of the chest. COMPARISON: 08/01/2023 FINDINGS: Lungs: Streaky subsegmental retrocardiac opacities. Medial apices obscured by facial structures. Heterogeneous parenchyma. Prominent interstitial markings. Pleural space: Unremarkable. No pneumothorax. Heart: Unremarkable. No cardiomegaly. Mediastinum: Unremarkable. Normal mediastinal contour. Bones/joints: Prior left clavicle plate and screw fixation. Moderate thoracic kyphosis. Multiple old rib fractures. IMPRESSION: 1. No acute consolidation visible. 2. Probable senescent interstitial changes. 3. Chronic findings as above
[2023-11-21 11:03] VITALS: BP 114/57; PULSE 72; TEMP 97.9
== END 2023-11-21 10:55 | disposition home or self-care (01) ==
LOC: EC 01:48
DX: J40 Bronchitis, not specified as acute or chronic (principal); J44.9 Chronic obstructive pulmonary disease, unspecified; E11.9 Type 2 diabetes mellitus without complications; I10 Essential (primary) hypertension; F17.200 Nicotine dependence, unspecified, uncomplicated; Z86.59 Personal history of other mental and behavioral disorders; Z20.822 Contact with and (suspected) exposure to COVID-19; Z79.899 Other long term (current) drug therapy
CPT/HCPCS: 36415; 71046; 80053; 83880; 84484; 85025; 85610; 85730; 87636; 93005; 99285

== ENCOUNTER 2023-12-20 23:53 | Emergency (ER) | payer OTHER ==
[2023-12-21 01:08] LABS: Basophils # (A) 0.1 k/uL (0-0.2); Basophils % (A) 1 %; Eosinophils # (A) 0.5 k/uL (0-0.7); Eosinophils % (A) 6 %; HCT 38.9 % (39.0-53.0); HGB 12.8 gm/dL (13.0-17.5); Lymphocytes # (A) 1.7 k/uL (1.0-4.8); Lymphocytes % (A) 20 %; MCH 32.5 pg (25.0-35.0); MCHC 32.8 g/dL (31.0-37.0); MCV 99.1 fL (80.0-100.0); Mean Platelet Volume 7.4; Monocytes # (A) 0.4 k/uL (0-1.0); Monocytes % (A) 5 %; Neutrophils # (A) 5.6 k/uL (1.3-7.7); Neutrophils % (A) 67 %; Platelet Count 241 k/uL (150-450); RBC 3.92 m/uL (4.30-5.90); RDW 12.8 % (11.5-15.5); WBC 8.4 k/uL (3.8-10.6)
--- NOTE | 2023-12-21 01:11 | XR ---
EXAMINATION TYPE: XR chest 2V DATE OF EXAM: 12/21/2023 COMPARISON: Chest x-ray November 21, 2023 HISTORY: Difficulty in breathing TECHNIQUE: Frontal and lateral views of the chest are obtained. FINDINGS: There is chronic parenchymal changes bilaterally without suspicious focal air space opacit y, pleural effusion, or pneumothorax seen. The cardiac silhouette size is mildly enlarged on current study. Metallic plate overlying the left clavicle is redemonstrated. IMPRESSION: Chronic changes and mild cardiomegaly without acute pulmonary process.
[2023-12-21 01:17] LABS: Partial Thromboplastin Time 28.2 sec (22.0-30.0); Prothrombin Time 10.6 sec (10.0-12.5)
[2023-12-21 01:18] VITALS: BP 134/68; PULSE 64; RESP 18; TEMP 98.8
[2023-12-21 01:22] LABS: ALT 12 U/L (4-49); AST 25 U/L (17-59); African American GFR (CKD) >90 (>60 ml/min/1.73 sqM); Alkaline Phosphatase 90 U/L (38-126); Anion Gap 6 mmol/L; Blood Urea Nitrogen 27 mg/dL (9-20); Carbon Dioxide 28 mmol/L (22-30); Chloride 104 mmol/L (98-107); Glucose 97 mg/dL (74-99); Non-African American GFR(CKD) >90 (>60 ml/min/1.73 sqM); Potassium 4.3 mmol/L (3.5-5.1); Sodium 138 mmol/L (137-145); Total Bilirubin 0.4 mg/dL (0.2-1.3)
[2023-12-21 01:31] LABS: NT-Pro-B-Type Natriuretic Pept 336 pg/mL
--- NOTE | 2023-12-21 02:42 | ED ---
Extremity Problem HPI - General Chief complaint: Extremity Problem,Nontraumatic Stated complaint: leg swelling Time Seen by Provider: 12/21/23 02:22 Source: patient Mode of arrival: ambulatory Limitations: no limitations - History of Present Illness Initial comments: 63-year-old male presenting with chief complaint of lower extremity swelling. Patient states he has had increased leg swelling over the last 2 weeks. He states that he does have a history of CHF. However he does not take any diuretics, it is unclear why. He denies any shortness of breath or chest pain. No nausea vomiting or abdominal pain. He states that he was recently diagnosed with bronchitis and has had a bit of a cough. No recent injury or trauma. No pain - Related Data Home Medications Medication Instructions Recorded Confirmed Metoprolol Tartrate [Lopressor] 25 mg PO BID 08/02/23 08/03/23 Previous Rx's Medication Instructions Recorded lisinopriL [Zestril] 5 mg PO DAILY 30 Days #30 tab 11/19/22 Acetaminophen Tab [Tylenol] 650 mg PO Q6HR PRN tab 08/12/23 Albuterol Inhaler [Ventolin Hfa 2 puff INHALATION Q6H PRN 30 Days 08/12/23 Inhaler] #1 each Amoxic-Pot Clav 875-125Mg 1 tab PO Q12HR 14 Days #28 tab 08/12/23 [Augmentin 875-125] Budesonide-Formot 160-4.5 Mcg 2 puff INHALATION BID #10.2 gm 08/12/23 [Symbicort 160-4.5 Mcg Inhaler] HYDROcodone/APAP 7.5-325MG [[place] 1 tab PO Q6HR PRN 3 Days #12 tab 08/12/23 7.5-325] Nicotine 21Mg/24Hr Patch [Habitrol] 1 patch TRANSDERM DAILY #30 patch 08/12/23 Thiamine [Vitamin B-1] 100 mg PO DAILY #30 tab 08/12/23 Albuterol Inhaler [Ventolin Hfa 2 puff INHALATION Q4HR PRN #1 each 11/21/23 Inhaler] Metoprolol Tartrate [Lopressor] 25 mg PO BID #14 tablet 11/21/23 lisinopriL [Zestril] 5 mg PO DAILY #7 tab 11/21/23 predniSONE [Deltasone] 20 mg PO BID #10 tab 11/21/23 Allergies Allergy/AdvReac Type Severity Reaction Status Date / Time No Known Allergies Allergy Verified 11/21/23 02:22 Review of Systems ROS Statement: Those systems with pertinent positive or pertinent negative responses have been documented in the HPI. ROS Other: All systems not noted in ROS Statement are negative. Past Medical History Past Medical History: COPD, Diabetes Mellitus, Deep Vein Thrombosis (DVT), Hypertension, Musculoskeletal Disorder, Pneumonia, Pulmonary Embolus (PE) Additional Past Medical History / Comment(s): "broken back 01/06/19", "heart arrhythmia's," DVT right leg, PE History of Any Multi-Drug Resistant Organisms: None Reported Past Surgical History: Orthopedic Surgery Additional Past Surgical History / Comment(s): left clavicle, jaw, lt leg Past Anesthesia/Blood Transfusion Reactions: No Reported Reaction Past Psychological History: Anxiety, Depression, Schizophrenia Smoking Status: Current every day smoker Past Alcohol Use History: Abuse, Daily, Heavy Past Drug Use History: None Reported - Past Family History Sister(s) Family Medical History: Cancer Additional Family Medical History / Comment(s): 2 sisters from cancer Mother Family Medical History: Coronary Artery Disease (CAD) Father Additional Family Medical History / Comment(s): Alcoholic General Exam Limitations: no limitations General appearance: alert, in no apparent distress Head exam: Present: atraumatic, normocephalic Eye exam: Present: normal appearance Neck exam: Present: normal inspection Respiratory exam: Present: normal lung sounds bilaterally. Absent: respiratory distress, wheezes, rales, rhonchi, stridor Cardiovascular Exam: Present: regular rate, normal rhythm, normal heart sounds. Absent: systolic murmur, diastolic murmur, rubs, gallop, clicks Extremities exam: Present: pedal edema Neurological exam: Present: alert, oriented X3 Psychiatric exam: Present: normal affect, normal mood Skin exam: Present: warm, dry Course Vital Signs 12/21/23 00:39 Temperature 98.8 F Pulse Rate 64 Respiratory 18 Rate Blood Pressure 134/68 O2 Sat by Pulse 96 Oximetry Medical Decision Making - Medical Decision Making Was pt. sent in by a medical professional or institution (, PA, GENERAL OPERATIONS MANAGER, urgent care, hospital, or long term...) When possible be specific @ -No Did you speak to anyone other than the patient for history (EMS, parent, family, police, friend...)? What history was obtained from this source @ -No Did you review nursing and triage notes (agree or disagree)? Why? @ -I reviewed and agree with nursing and triage notes Were old charts reviewed (outside hosp., previous admission, EMS record, old EKG, old radiological studies, urgent care reports/EKG's, long term records)? Report findings @ -Previous visits are reviewed Differential Diagnosis (chest pain, altered mental status, abdominal pain women, abdominal pain men, vaginal bleeding, weakness, fever, dyspnea, syncope, head ache, dizziness, GI bleed, back pain, seizure, CVA, palpatations, mental health, musculoskeletal)? @ -Differential includes CHF, DVT, renal disease, liver disease, injury, gravity dependent edema, this is not an all-inclusive list EKG interpreted by me (3pts min.). @ -EKG shows sinus rhythm with sinus arrhythmia ventricular rate 61. NC interval 162. QRS 98. QT 439. QTc 443. Right axis deviation. No major changes from previous EKG X-rays interpreted by me (1pt min.). @ -Chest x-ray shows chronic changes and mild cardiomegaly without acute pulmonary process CT interpreted by me (1pt min.). @ -None done U/S interpreted by me (1pt. min.). @ -None done What testing was considered but not performed or refused? (CT, X-rays, U/S, labs)? Why? @ -None What meds were considered but not given or refused? Why? @ -None Did you discuss the management of the patient with other professionals (professionals i.e. , PA, GENERAL OPERATIONS MANAGER, lab, RT, psych nurse, social services, production welding supervisor, teacher, [place] police officer, piano case and bench assembler)? Give summary @ -No Was smoking cessation discussed for >3mins.? @ -No Was critical care preformed (if so, how long)? @ -No Were there social determinants of health that impacted care today? How? (Homelessness, low income, unemployed, alcoholism, drug addiction, transportation, low edu. Level, literacy, decrease access to med. care, prison, rehab)? @ -No Was there de-escalation of care discussed even if they declined (Discuss DNR or withdrawal of care, Hospice)? DNR status @ -No What co-morbidities impacted this encounter? (DM, HTN, Smoking, COPD, CAD, Cancer, CVA, ARF, Chemo, Hep., AIDS, mental health diagnosis, sleep apnea, morbid obesity)? @ -CHF Was patient admitted / discharged? Hospital course, mention meds given and route, prescriptions, significant lab abnormalities, going to OR and other pertinent info. @ -63-year-old male presenting with chief complaint of lower extremity swelling. This has been ongoing for 2 weeks. He is concerned because he has a history of CHF, he is having no difficulty breathing or chest pain. Workup is initiated by triage. Chest x-ray shows no signs of CHF exacerbation, BNP is 336 and negative troponin. Remainder of lab work requires no further action. EKG shows sinus rhythm with sinus arrhythmia. On physical exam the patient is neurovascularly intact. He does have bilateral lower extremity swelling, left lower leg is slightly more enlarged. Patient is having no pain. Ultrasound is not available at this time. Patient is provided with a written order for Doppler ultrasound with results to be forwarded to his PCP. He is educated on today's findings and the need for follow-up. Follow-up with PCP. Report back to ER with any new or worsening symptoms. Discussed return parameters and answered all questions. Patient conveyed verbal understanding and agreed to the plan. I discussed this case in detail with my attending Dr. Che Undiagnosed new problem with uncertain prognosis? @ -No Drug Therapy requiring intensive monitoring for toxicity (Heparin, Nitro, Insulin, Cardizem)? @ -No Were any procedures done? @ -No Diagnosis/symptom? @ -Lower extremity swelling Acute, or Chronic, or Acute on Chronic? @ -Acute Uncomplicated (without systemic symptoms) or Complicated (systemic symptoms)? @ -Uncomplicated Side effects of treatment? @ -No Exacerbation, Progression, or Severe Exacerbation? @ -No Poses a threat to life or bodily function? How? (Chest pain, [place], [place], pneumonia, PE, COPD, DKA, ARF, appy, cholecystitis, CVA, Diverticulitis, Homicidal, Suicidal, threat to staff... and all critical care pts) @ -Unlikely - Lab Data Result diagrams: 12/21/23 00:51 12/21/23 00:51 Lab Results 12/21/23 12/21/23 12/21/23 Range/Units 00:51 00:51 00:51 WBC 8.4 (3.8-10.6) k/uL RBC 3.92 L (4.30-5.90) m/uL Hgb 12.8 L (13.0-17.5) gm/dL Hct 38.9 L (39.0-53.0) % MCV 99.1 (80.0-100.0) fL MCH 32.5 (25.0-35.0) pg MCHC 32.8 (31.0-37.0) g/dL RDW 12.8 (11.5-15.5) % Plt Count 241 (150-450) k/uL MPV 7.4 Neutrophils % 67 % Lymphocytes % 20 % Monocytes % 5 % Eosinophils % 6 % Basophils % 1 % Neutrophils # 5.6 (1.3-7.7) k/uL Lymphocytes # 1.7 (1.0-4.8) k/uL Monocytes # 0.4 (0-1.0) k/uL Eosinophils # 0.5 (0-0.7) k/uL Basophils # 0.1 (0-0.2) k/uL PT 10.6 (10.0-12.5) sec INR 1.0 (<1.2) APTT 28.2 (22.0-30.0) sec Sodium 138 (137-145) mmol/L Potassium 4.3 (3.5-5.1) mmol/L Chloride 104 (98-107) mmol/L Carbon Dioxide 28 (22-30) mmol/L Anion Gap 6 mmol/L BUN 27 H (9-20) mg/dL Creatinine 0.77 (0.66-1.25) mg/dL Est GFR (CKD-EPI)AfAm >90 (>60 ml/min/1.73 sqM) Est GFR (CKD-EPI)NonAf >90 (>60 ml/min/1.73 sqM) Glucose 97 (74-99) mg/dL Calcium 9.0 (8.4-10.2) mg/dL Total Bilirubin 0.4 (0.2-1.3) mg/dL AST 25 (17-59) U/L ALT 12 (4-49) U/L Alkaline Phosphatase 90 (38-126) U/L Troponin I (0.000-0.034) ng/mL NT-Pro-B Natriuret Pep 336 pg/mL Total Protein 7.0 (6.3-8.2) g/dL Albumin 4.0 (3.5-5.0) g/dL 12/21/23 Range/Units 00:51 WBC (3.8-10.6) k/uL RBC (4.30-5.90) m/uL Hgb (13.0-17.5) gm/dL Hct (39.0-53.0) % MCV (80.0-100.0) fL MCH (25.0-35.0) pg MCHC (31.0-37.0) g/dL RDW (11.5-15.5) % Plt Count (150-450) k/uL MPV Neutrophils % % Lymphocytes % % Monocytes % % Eosinophils % % Basophils % % Neutrophils # (1.3-7.7) k/uL Lymphocytes # (1.0-4.8) k/uL Monocytes # (0-1.0) k/uL Eosinophils # (0-0.7) k/uL Basophils # (0-0.2) k/uL PT (10.0-12.5) sec INR (<1.2) APTT (22.0-30.0) sec Sodium (137-145) mmol/L Potassium (3.5-5.1) mmol/L Chloride (98-107) mmol/L Carbon Dioxide (22-30) mmol/L Anion Gap mmol/L BUN (9-20) mg/dL Creatinine (0.66-1.25) mg/dL Est GFR (CKD-EPI)AfAm (>60 ml/min/1.73 sqM) Est GFR (CKD-EPI)NonAf (>60 ml/min/1.73 sqM) Glucose (74-99) mg/dL Calcium (8.4-10.2) mg/dL Total Bilirubin (0.2-1.3) mg/dL AST (17-59) U/L ALT (4-49) U/L Alkaline Phosphatase (38-126) U/L Troponin I <0.012 (0.000-0.034) ng/mL NT-Pro-B Natriuret Pep pg/mL Total Protein (6.3-8.2) g/dL Albumin (3.5-5.0) g/dL Disposition Clinical Impression: Bilateral lower extremity edema Disposition: HOME SELF-CARE Condition: Good Instructions (If sedation given, give patient instructions): Leg Edema (ED) Additional Instructions: Follow-up with PCP. Report back to ER with any new or worsening symptoms. Is patient prescribed a controlled substance at d/c from ED?: No Referrals: Randy Giraldo MD [REFERRING] - 1-2 days Time of Disposition: 02:56
== END 2023-12-21 03:17 | disposition home or self-care (01) ==
LOC: EC 23:53
DX: M79.89 Other specified soft tissue disorders (principal); R60.0 Localized edema; E11.9 Type 2 diabetes mellitus without complications; I10 Essential (primary) hypertension; J44.9 Chronic obstructive pulmonary disease, unspecified; F17.200 Nicotine dependence, unspecified, uncomplicated; Z86.59 Personal history of other mental and behavioral disorders; Z79.899 Other long term (current) drug therapy
CPT/HCPCS: 36415; 71046; 80053; 83880; 84484; 85025; 85610; 85730; 93005; 99283

== ENCOUNTER 2024-06-11 10:51 | Emergency (ER) | payer OTHER ==
--- NOTE | 2024-06-11 11:22 | ED ---
Extremity Problem HPI - General Chief complaint: Extremity Problem,Nontraumatic Stated complaint: L leg swelling Time Seen by Provider: 06/11/24 11:21 Source: patient, RN notes reviewed Mode of arrival: ambulatory Limitations: no limitations - History of Present Illness Initial comments: 63-year-old male with a past medical history of COPD, DVT, hypertension and PE presenting to the ER with a chief complaint of bilateral lower extremity edema. He states this has been an chronic issue but for the past 4 days has been noticing an increase in lower extremity edema. Patient states he was seen here and received a 7-day course of a diuretic but finished that approximately 3 months ago. He noticed his left leg starting to weep and noticed 2 wounds on the anterior aspect today which brought him to the ER. He denies any shortness of breath or chest pain. He is not currently on a blood thinner or diuretic. He denies any fevers, chills, nausea, vomiting or other complaints. - Related Data Home Medications Medication Instructions Recorded Confirmed Metoprolol Tartrate [Lopressor] 25 mg PO BID 08/02/23 08/03/23 Previous Rx's Medication Instructions Recorded Acetaminophen Tab [Tylenol] 650 mg PO Q6HR PRN tab 08/12/23 Albuterol Inhaler [Ventolin Hfa 2 puff INHALATION Q6H PRN 30 Days 08/12/23 Inhaler] #1 each Amoxic-Pot Clav 875-125Mg 1 tab PO Q12HR 14 Days #28 tab 08/12/23 [Augmentin 875-125] Budesonide-Formot 160-4.5 Mcg 2 puff INHALATION BID #10.2 gm 08/12/23 [Symbicort 160-4.5 Mcg Inhaler] HYDROcodone/APAP 7.5-325MG [[place] 1 tab PO Q6HR PRN 3 Days #12 tab 08/12/23 7.5-325] Nicotine 21Mg/24Hr Patch [Habitrol] 1 patch TRANSDERM DAILY #30 patch 08/12/23 Thiamine [Vitamin B-1] 100 mg PO DAILY #30 tab 08/12/23 Albuterol Inhaler [Ventolin Hfa 2 puff INHALATION Q4HR PRN #1 each 11/21/23 Inhaler] Metoprolol Tartrate [Lopressor] 25 mg PO BID #14 tablet 11/21/23 lisinopriL [Zestril] 5 mg PO DAILY #7 tab 11/21/23 predniSONE [Deltasone] 20 mg PO BID #10 tab 11/21/23 Furosemide [Lasix] 20 mg PO DAILY #7 tab 03/29/24 HYDROcodone/APAP 5-325MG [[place] 1 tab PO Q6HR PRN #12 tab 03/29/24 5-325] Metoprolol Tartrate 25 mg PO BID #60 tab 03/29/24 lisinopriL [Zestril] 5 mg PO DAILY 30 Days #30 tab 03/29/24 Cephalexin [Keflex] 500 mg PO Q6HR #40 cap 06/11/24 Allergies Allergy/AdvReac Type Severity Reaction Status Date / Time No Known Allergies Allergy Verified 01/15/24 19:44 Review of Systems ROS Statement: Those systems with pertinent positive or pertinent negative responses have been documented in the HPI. ROS Other: All systems not noted in ROS Statement are negative. Past Medical History Past Medical History: COPD, Diabetes Mellitus, Deep Vein Thrombosis (DVT), Hypertension, Musculoskeletal Disorder, Pneumonia, Pulmonary Embolus (PE) Additional Past Medical History / Comment(s): "broken back 01/06/19", "heart arrhythmia's," DVT right leg, PE History of Any Multi-Drug Resistant Organisms: None Reported Past Surgical History: Orthopedic Surgery Additional Past Surgical History / Comment(s): left clavicle, jaw, lt leg Past Anesthesia/Blood Transfusion Reactions: No Reported Reaction Past Psychological History: Anxiety, Depression, Schizophrenia Smoking Status: Current every day smoker Past Alcohol Use History: Abuse, Daily, Heavy Past Drug Use History: None Reported - Past Family History Sister(s) Family Medical History: Cancer Additional Family Medical History / Comment(s): 2 sisters from cancer Mother Family Medical History: Coronary Artery Disease (CAD) Father Additional Family Medical History / Comment(s): Alcoholic General Exam Limitations: no limitations Course Vital Signs 06/11/24 06/11/24 10:52 12:01 Temperature 97.4 F L Pulse Rate 75 63 Respiratory 18 16 Rate Blood Pressure 133/78 110/62 O2 Sat by Pulse 94 L 96 Oximetry Medical Decision Making - Medical Decision Making Was pt. sent in by a medical professional or institution (, PA, PHYSICAL DIRECTOR, urgent care, hospital, or usp...) When possible be specific @ -No Did you speak to anyone other than the patient for history (EMS, parent, family, police, friend...)? What history was obtained from this source @ -No Did you review nursing and triage notes (agree or disagree)? Why? @ -I reviewed and agree with nursing and triage notes Were old charts reviewed (outside hosp., previous admission, EMS record, old EKG, old radiological studies, urgent care reports/EKG's, usp records)? Report findings @ -Yes, I reviewed ER visit from 12-20-2023. Patient seen for similar complaint. Differential Diagnosis (chest pain, altered mental status, abdominal pain women, abdominal pain men, vaginal bleeding, weakness, fever, dyspnea, syncope, headache, dizziness, GI bleed, back pain, seizure, CVA, palpatations, mental health, musculoskeletal)? @ -Cellulitis, CHF exacerbation, dependent edema...This list is not meant to be all-inclusive EKG interpreted by me (3pts min.). @ -As above X-rays interpreted by me (1pt min.). @ -Chest x-ray interpreted by me negative for acute cardiopulmonary process. CT interpreted by me (1pt min.). @ -None done U/S interpreted by me (1pt. min.). @ -None done What testing was considered but not performed or refused? (CT, X-rays, U/S, labs)? Why? @ -None What meds were considered but not given or refused? Why? @ -None Did you discuss the management of the patient with other professionals (professionals i.e. , PA, PHYSICAL DIRECTOR, lab, RT, psych nurse, social media executive, actuarial science professor, teacher, training and development officer, case checker)? Give summary @ -No Was smoking cessation discussed for >3mins.? @ -No Was critical care preformed (if so, how long)? @ -No Were there social determinants of health that impacted care today? How? (Homelessness, low income, unemployed, alcoholism, drug addiction, transportation, low edu. Level, literacy, decrease access to med. care, [facility], rehab)? @ -Yes, patient has not been following up with a PCP as his moved out of town. Was there de-escalation of care discussed even if they declined (Discuss DNR or withdrawal of care, Hospice)? DNR status @ -No What co-morbidities impacted this encounter? (DM, HTN, Smoking, COPD, CAD, Cancer, CVA, ARF, Chemo, Hep., AIDS, mental health diagnosis, sleep apnea, morbid obesity)? @ -None Was patient admitted / discharged? Hospital course, mention meds given and route, prescriptions, significant lab abnormalities, going to OR and other pertinent info. @ -Discharge. 63-year-old male presented to the ER with a chief complaint of bilateral lower extremity edema. History and physical exam completed. Vitals stable. Patient in no signs of acute distress and nontoxic-appearing. Bilateral lower extremities with 2+ pedal edema. They are mildly erythematous. Left briones has 2 wounds no purulent drainage. Bilateral lower extremities neurovascularly intact. Patient denying chest pain, shortness of breath, dizz iness, fevers, lightheadedness. Laboratory studies and chest x-ray will be obtained. Laboratory studies showing a hemoglobin of 11.9 which appears to be chronic in nature. BNP 465. Chest x-ray interpreted by me negative for acute cardiopulmonary process. Patient received 40 mg p.o. Lasix prior to discharge. Keflex will be prescribed for infection prophylaxis due to wounds on left briones. Discussed with patient the importance of finding a primary care physician to establish care. PCP referrals given. Conservative treatment options discussed. Patient stable for discharge at this time. Return parameters discussed. Patient discharged in stable condition with follow-up to PCP. Patient verbally expressed understanding and agreement with care plan. Case discussed with ED attending, Dr. Hood. Undiagnosed new problem with uncertain prognosis? @ -No Drug Therapy requiring intensive monitoring for toxicity (Heparin, Nitro, Insulin, Cardizem)? @ -No Were any procedures done? @ -No Diagnosis/symptom? @ -Bilateral lower extremity edema Acute, or Chronic, or Acute on Chronic? @ -Chronic Uncomplicated (without systemic symptoms) or Complicated (systemic symptoms)? @ -Uncomplicated Side effects of treatment? @ -No Exacerbation, Progression, or Severe Exacerbation? @ -No Poses a threat to life or bodily function? How? (Chest pain, [place], [place], pneumonia, PE, COPD, DKA, ARF, appy, cholecystitis, CVA, Diverticulitis, Homicidal, Suicidal, threat to staff... and all critical care pts) @ -No - Lab Data Result diagrams: 07/25/24 11:23 06/11/24 11:23 Lab Results 06/11/24 06/11/24 Range/Units 11:23 11:23 WBC 6.3 (3.8-10.6) k/uL RBC 3.77 L (4.30-5.90) m/uL Hgb 11.9 L (13.0-17.5) gm/dL Hct 36.6 L (39.0-53.0) % MCV 97.2 (80.0-100.0) fL MCH 31.7 (25.0-35.0) pg MCHC 32.6 (31.0-37.0) g/dL RDW 12.9 (11.5-15.5) % Plt Count 307 (150-450) k/uL MPV 7.2 Neutrophils % 61 % Lymphocytes % 26 % Monocytes % 6 % Eosinophils % 5 % Basophils % 1 % Neutrophils # 3.9 (1.3-7.7) k/uL Lymphocytes # 1.6 (1.0-4.8) k/uL Monocytes # 0.4 (0-1.0) k/uL Eosinophils # 0.3 (0-0.7) k/uL Basophils # 0.0 (0-0.2) k/uL Sodium 138 (137-145) mmol/L Potassium 3.9 (3.5-5.1) mmol/L Chloride 106 (98-107) mmol/L Carbon Dioxide 26 (22-30) mmol/L Anion Gap 6 mmol/L BUN 15 (9-20) mg/dL Creatinine 0.74 (0.66-1.25) mg/dL Est GFR (CKD-EPI)AfAm >90 (>60 ml/min/1.73 sqM) Est GFR (CKD-EPI)NonAf >90 (>60 ml/min/1.73 sqM) Glucose 84 (74-99) mg/dL Calcium 8.6 (8.4-10.2) mg/dL Total Bilirubin 0.4 (0.2-1.3) mg/dL AST 24 (17-59) U/L ALT 10 (4-49) U/L Alkaline Phosphatase 84 (38-126) U/L NT-Pro-B Natriuret Pep 465 pg/mL Total Protein 6.9 (6.3-8.2) g/dL Albumin 3.5 (3.5-5.0) g/dL - EKG Data -: EKG Interpreted by Me EKG Comments: EKG taken at 10: 57 showing a sinus rhythm with sinus arrhythmia. No acute ST segment or T wave abnormalities. Artifact in V2. Normal axis. Ventricular rate 62, ME interval 165, QRS duration 97, QT/QTc 425/431. - Radiology Data Radiology results: report reviewed, image reviewed Disposition Clinical Impression: Bilateral lower extremity edema Disposition: HOME SELF-CARE Condition: Stable Instructions (If sedation given, give patient instructions): Leg Edema (ED) Additional Instructions: Follow-up with PCP. Return to the ER for any new or worsening symptoms. Prescriptions: Cephalexin [Keflex] 500 mg PO Q6HR #40 cap Is patient prescribed a controlled substance at d/c from ED?: No Referrals: None,Stated [Primary Care Provider] - 1-2 days Forms: Area PCPs Time of Disposition: 13:08
[2024-06-11 11:52] LABS: Basophils % (A) 1 %; Eosinophils # (A) 0.3 k/uL (0-0.7); Eosinophils % (A) 5 %; HCT 36.6 % (39.0-53.0); HGB 11.9 gm/dL (13.0-17.5); Lymphocytes # (A) 1.6 k/uL (1.0-4.8); Lymphocytes % (A) 26 %; MCH 31.7 pg (25.0-35.0); MCHC 32.6 g/dL (31.0-37.0); MCV 97.2 fL (80.0-100.0); Mean Platelet Volume 7.2; Monocytes # (A) 0.4 k/uL (0-1.0); Monocytes % (A) 6 %; Neutrophils # (A) 3.9 k/uL (1.3-7.7); Neutrophils % (A) 61 %; Platelet Count 307 k/uL (150-450); RBC 3.77 m/uL (4.30-5.90); RDW 12.9 % (11.5-15.5); WBC 6.3 k/uL (3.8-10.6)
[2024-06-11 11:54] LABS: ALT 10 U/L (4-49); AST 24 U/L (17-59); African American GFR (CKD) >90 (>60 ml/min/1.73 sqM); Albumin 3.5 g/dL (3.5-5.0); Alkaline Phosphatase 84 U/L (38-126); Anion Gap 6 mmol/L; Blood Urea Nitrogen 15 mg/dL (9-20); Calcium 8.6 mg/dL (8.4-10.2); Carbon Dioxide 26 mmol/L (22-30); Chloride 106 mmol/L (98-107); Glucose 84 mg/dL (74-99); Non-African American GFR(CKD) >90 (>60 ml/min/1.73 sqM); Potassium 3.9 mmol/L (3.5-5.1); Sodium 138 mmol/L (137-145); Total Bilirubin 0.4 mg/dL (0.2-1.3); Total Protein 6.9 g/dL (6.3-8.2)
[2024-06-11 12:01] LABS: NT-Pro-B-Type Natriuretic Pept 465 pg/mL
[2024-06-11 12:02] VITALS: RESP 16
--- NOTE | 2024-06-11 12:49 | XR ---
EXAMINATION TYPE: XR chest 2V DATE OF EXAM: 06/11/2024 12:41 PM COMPARISON: Chest radiographs from 12/21/2023, CT chest 08/12/2023 TECHNIQUE: XR chest 2V Frontal and lateral views of the chest. CLINICAL INDICATION:Male, 63 years old with history of CHF; FINDINGS: There is chronic parenchymal changes bilaterally without suspicious focal air space opacit y, pleural effusion, or pneumothorax seen. The cardiac silhouette size is mildly enlarged on current study. Metallic plate overlying the left clavicle is redemonstrated. Advanced multilevel degenerativ e disc disease with increased thoracic kyphosis redemonstrated. IMPRESSION: Chronic changes and mild cardiomegaly without acute pulmonary process.
[2024-06-11] MEDS: FUROSEMIDE 40 MG TAB PO STA (13:12)
[2024-06-11 13:16] VITALS: BP 115/69; PULSE 65; TEMP 97.8
== END 2024-06-11 13:21 | disposition home or self-care (01) ==
LOC: EC 10:51
DX: R60.0 Localized edema (principal); I49.8 Other specified cardiac arrhythmias; L53.9 Erythematous condition, unspecified; F17.200 Nicotine dependence, unspecified, uncomplicated
CPT/HCPCS: 36415; 71046; 80053; 83880; 85025; 93005; 99284

== ENCOUNTER 2024-06-11 18:35 | Emergency (ER) | payer OTHER ==
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
[2024-06-11] MEDS: SODIUM CHLORIDE 0.9% 1,000 ML IV ONE (20:04)
[2024-06-11] MEDS: SODIUM CHLORIDE 0.9% 500 ML 500 ML IV ONE (20:05)
[2024-06-11] MEDS: DIPH,PERTUS(ACELL)TETVAC-LF 0.5 ML VIAL IM ONE (20:08)
[2024-06-11 20:38] LABS: Basophils % (A) 0 %; Eosinophils # (A) 0.4 k/uL (0-0.7); Eosinophils % (A) 5 %; HCT 37.7 % (39.0-53.0); Lymphocytes # (A) 1.5 k/uL (1.0-4.8); Lymphocytes % (A) 19 %; MCH 30.9 pg (25.0-35.0); MCHC 31.8 g/dL (31.0-37.0); MCV 97.3 fL (80.0-100.0); Mean Platelet Volume 8.1; Monocytes # (A) 0.5 k/uL (0-1.0); Monocytes % (A) 6 %; Neutrophils # (A) 5.3 k/uL (1.3-7.7); Neutrophils % (A) 69 %; Platelet Count 301 k/uL (150-450); RBC 3.87 m/uL (4.30-5.90); RDW 13.3 % (11.5-15.5); WBC 7.7 k/uL (3.8-10.6)
[2024-06-11 20:43] LABS: ALT 11 U/L (4-49); AST 28 U/L (17-59); African American GFR (CKD) >90 (>60 ml/min/1.73 sqM); Albumin 3.8 g/dL (3.5-5.0); Alcohol <10 mg/dL; Alkaline Phosphatase 96 U/L (38-126); Anion Gap 7 mmol/L; Blood Urea Nitrogen 14 mg/dL (9-20); Calcium 8.7 mg/dL (8.4-10.2); Carbon Dioxide 28 mmol/L (22-30); Chloride 103 mmol/L (98-107); Glucose 88 mg/dL (74-99); Magnesium 1.8 mg/dL (1.6-2.3); Non-African American GFR(CKD) >90 (>60 ml/min/1.73 sqM); Potassium 3.9 mmol/L (3.5-5.1); Sodium 138 mmol/L (137-145); Total Bilirubin 0.6 mg/dL (0.2-1.3); Total Protein 7.1 g/dL (6.3-8.2)
[2024-06-11] MEDS: METOPROLOL TARTRATE 5 MG/5 ML VIAL IVP STA (20:49)
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
[2024-06-11 22:01] VITALS: BP 136/87; PULSE 78; RESP 20; TEMP 98.1
== END 2024-06-11 22:01 | disposition home or self-care (01) ==
LOC: EC 18:35
DX: S00.03XA Contusion of scalp, initial encounter (principal); F17.200 Nicotine dependence, unspecified, uncomplicated; Z23 Encounter for immunization; X58.XXXA Exposure to other specified factors, initial encounter; Y93.55 Activity, bike riding
CPT/HCPCS: 99284; 96360; 90471; 36415; 93005; 80053; 83735; 84484; 85025; 72125; 70450; 90715; G0480; 80320

== ENCOUNTER 2025-05-09 16:53 | Inpatient (IN) | payer OTHER ==
--- NOTE | 2025-05-09 17:03 | ED ---
General Adult HPI - General Stated complaint: SOB Time Seen by Provider: 05/09/25 16:57 - History of Present Illness Initial comments: History as noted by acute condition. Patient is 64-year-old male with a past medical history of CHF, COPD, DVT presenting for altered mental status. Patient is currently homeless and was at his friend's last night, sat down in his chair around 7:00PM and hadn't gotten until he was found this morning by friends, confused. On EMS arrival, patient had a pulse ox of 59%. He was altered to the point of being nearly unresponsive, he was provided with oxygen via BVM, his alertness increased en route to the hospital, and his pulse ox increased to the high 70s. Patient denies any chest pain, recent fevers or chills. - Related Data Home Medications Medication Instructions Recorded Confirmed Albuterol Inhaler [Ventolin Hfa 2 puff INHALATION RT-Q6H PRN 05/09/25 05/09/25 Inhaler] Albuterol Nebulized [Ventolin 2.5 mg INHALATION RT-QID PRN 05/09/25 05/09/25 Nebulized] Budesonide-Formot 160-4.5 Mcg 2 puff INHALATION RT-BID 05/09/25 05/09/25 [Symbicort 160-4.5 Mcg Inhaler] Buprenorphine HCl/Naloxone HCl 1 film SL BID 05/09/25 05/09/25 [Suboxone 8 mg-2 mg Sl Film] Furosemide [Lasix] 80 mg PO DAILY 05/09/25 05/09/25 Meloxicam [Mobic] 15 mg PO DAILY 05/09/25 05/09/25 Multivitamins, Thera [Multivitamin 1 tab PO DAILY 05/09/25 05/09/25 (formulary)] Mupirocin 2% Oint [Bactroban 2% 1 applic TOPICAL TID 05/09/25 05/09/25 Oint] Nicotine 21Mg/24Hr Patch [Habitrol] 1 patch TRANSDERM DAILY PRN 05/09/25 05/09/25 Allergies Allergy/AdvReac Type Severity Reaction Status Date / Time No Known Allergies Allergy Verified 05/09/25 18:47 Review of Systems ROS Statement: Those systems with pertinent positive or pertinent negative responses have been documented in the HPI. ROS Other: All systems not noted in ROS Statement are negative. Past Medical History Past Medical History: COPD, Diabetes Mellitus, Deep Vein Thrombosis (DVT), Hypertension, Musculoskeletal Disorder, Pneumonia, Pulmonary Embolus (PE) Additional Past Medical History / Comment(s): "broken back 01/06/19", "heart arrhythmia's," DVT right leg, PE History of Any Multi-Drug Resistant Organisms: None Reported Past Surgical History: Orthopedic Surgery Additional Past Surgical History / Comment(s): left clavicle, jaw, lt leg Past Anesthesia/Blood Transfusion Reactions: No Reported Reaction Past Psychological History: Anxiety, Depression, Schizophrenia Smoking Status: Former smoker Past Alcohol Use History: None Reported, Abuse, Daily, Heavy Past Drug Use History: None Reported - Past Family History Sister(s) Family Medical History: Cancer Additional Family Medical History / Comment(s): 2 sisters from cancer Mother Family Medical History: Coronary Artery Disease (CAD) Father Additional Family Medical History / Comment(s): Alcoholic General Exam - General Exam Comments Initial Comments: PE: CONSTITUTIONAL: In distress, lethargic, pale, diaphoretic SKIN: Cool, dry, no jaundice, hives or petechiae brawny discoloration of the bilateral distal lower extremities, superficial abrasion to the distal right lower right lower extremity EYES: Pupils are equally round, extraocular movements intact without nystagmus, clear conjunctiva, non-icteric sclera HENT: Normocephalic, atraumatic, moist mucus membranes, oropharynx clear without exudates NECK: , Full range of motion, normal appearance PULMONARY: [Decreased excursion, supraclavicular retractions, tachypnea, rhonchi and crackles throughout the bilateral lung arauz CARDIOVASCULAR: Tachycardia, regular rate, rhythm, normal S1 and S2. No appreciated murmurs, rubs or gallops. Strong radial pulses with intact distal perfusion. Bilateral 2-3+ pittingedema GASTROINTESTINAL: Soft, active bowel sounds throughout, non-tender, non- distended, no palpable masses, no rebound or guarding. No hepatosplenomegaly MUSCULOSKELETAL: Extremities have no gross deformity NEUROLOGIC:_a/o x 3, GCS 15,initially lethargic on immediate arrival though with BVM, is able to answer questions, AO x3, otherwise normal mentation and speech. Moves all extremities x 4 without motor or sensory deficit PSYCHIATRIC:_normal mood and affect, thought process is clear and linear Course Vital Signs 05/09/25 05/09/25 05/09/25 16:53 16:54 17:22 Temperature 98.6 F Pulse Rate 102 H 180 H Respiratory 20 20 Rate Blood Pressure 128/90 140/83 O2 Sat by Pulse 91 L 99 Oximetry Fraction of 100 Inspired Oxygen (FIO2) 05/09/25 05/09/25 17:30 19:06 Temperature Pulse Rate 100 135 H Respiratory 18 20 Rate Blood Pressure 140/87 140/90 O2 Sat by Pulse 99 99 Oximetry Fraction of Inspired Oxygen (FIO2) - Reevaluation(s) Reevaluation #1: Patient went into SVT. Heart rate in the 180s. Patient was given 6 mg of adenosine and then 12 mg of adenosine. Patient converted to normal sinus rhythm. 05/09/25 17:26 Reevaluation #2: Patient now in A-fib with RVR, will order Cardizem bolus drip, heparin drip 05/09/25 18:33 EKG Findings - EKG Comments: EKG Findings:: Sinus tachycardia with shortened AZ interval, AZ interval 105 ms QT/QTc within normal limits, some artifact limiting interpretation otherwise no significant elevations or depressions, no arrhythmia Medical Decision Making - Medical Decision Making Was pt. sent in by a medical professional or institution (, PA, MINING SPECULATOR, urgent care, hospital, or usp...) When possible be specific @ -No Did you speak to anyone other than the patient for history (EMS, parent, family, police, friend...)? What history was obtained from this source @Spoke with EMS personnel who state that patient was recently admitted to the hospital and left AGAINST MEDICAL ADVICE, patient's pulse ox rhythm on arrival was 59%, he was unresponsive and alertness increased with BVM Did you review nursing and triage notes (agree or disagree)? Why? @ -I reviewed and agree with nursing and triage notes Were old charts reviewed (outside hosp., previous admission, EMS record, old EKG, old radiological studies, urgent care reports/EKG's, usp records)? Report findings @ -Medical records reviewed, patient is not been seen at this hospital since May of last year Differential Diagnosis (chest pain, altered mental status, abdominal pain women, abdominal pain men, vaginal bleeding, weakness, fever, dyspnea, syncope, headache, dizziness, GI bleed, back pain, seizure, CVA, palpatations, mental health, musculoskeletal)? Differential Altered Mental Status: Hypoglycemia, DKA, hypercapnia, hypoxemia, ETOH, overdose, CO poisoning, trauma, myxedema coma, HTN encephalopathy, infection, intercranial hemorrhage, hepatic encephalopathy, meningitis, CVA, this is not meant to be an all- inclusive list Differential Dyspnea: Coronary syndrome, arrhythmia, tamponade, asthma, COPD, pulmonary embolism, pneumonia, pneumothorax, pulmonary effusion, anaphylaxis, diabetic ketoacidosis, flailed chest, pulmonary contusion, diaphragmatic rupture, anemia, neuromuscular, this is not meant to be an all-inclusive list. EKG interpreted by me (3pts min.). @ -As above X-rays interpreted by me (1pt min.). Personally reviewed CXR, noted left sided pleural effusion, agree with radiologist interpretation CT interpreted by me (1pt min.). @ None done U/S interpreted by me (1pt. min.). @ -None done What testing was considered but not performed or refused? (CT, X-rays, U/S, labs)? Why? considered CT brain however pt's mentation rapidly improved as oxygenation improved, was AOx4 at end of assessment . CTA chest PE study considered however due to poor renal function/CEDRIC this was held off in order to avoid potentially worsening kidney function from contrast induced CEDRIC What meds were considered but not given or refused? Why? @ -None Did you discuss the management of the patient with other professionals (johanna bradford i.e. , PA, MINING SPECULATOR, lab, RT, psych nurse, hospice social worker, ductfixing plumber, teacher, articulation officer, case operator)? Give summary @Case discussed with Dr. Pastor, critical care Was smoking cessation discussed for >3mins.? @ -No Was critical care preformed (if so, how long)? @Yes 45 minutes Were there social determinants of health that impacted care today? How? (Homelessness, low income, unemployed, alcoholism, drug addiction, transportation, low edu. Level, literacy, decrease access to med. care, prison, r ehab)? @ -No Was there de-escalation of care discussed even if they declined (Discuss DNR or withdrawal of care, Hospice)? @ -No What co-morbidities impacted this encounter? (DM, HTN, Smoking, COPD, CAD, Cancer, CVA, ARF, Chemo, Hep., AIDS, mental health diagnosis, sleep apnea, morbid obesity)? @COPD, CHF Was patient admitted / discharged? Hospital course, mention meds given and route, prescriptions, significant lab abnormalities, going to OR and other pertinent info. Admission to ICU- Patient is a 64-year-old gentleman presenting today for altered mental status and shortness of breath. He is actively receiving assisted ventilations via BVM on arrival. He is opening his eyes, moves all 4 extremities, follows commands and is oriented x 3 though somewhat lethargic. Alertness increases as his pulse ox increases. Pulse ox initially 76 to 79%, increases to 81 and then 85% with BVM. Patient was transition to BiPAP, crackles throughout bilateral lung arauz, I suspect CHF and/or COPD e xacerbation, additional differential as noted above. Lasix, albuterol ordered. Chest x-ray, comprehensive labs. Patient did have an episode SVT, resolved after 6 mg and then 12 mg adenosine, labs significant for white blood cell 21.38, blood cultures have been drawn, Rocephin and azithromycin ordered to cover for pneumonia as potential source of infection/elevated white blood cell count, on arrival, ABG was significant for PCO2 of 78, PO2-87, pH 7.28. Suspect hypercapnia contributed to AMS on arrival. Mentation improving as patient has been on bipap. His coloring has improved as well and he appears much more comfortable. CMP remarkable for potassium 5.5, chloride 94, BNP 17,500. Additional 40 mg IV lasix ordered for total 70 mg lasix. Of note despite elevated lactic which I suspect is at least partially due to hypoxemia, though could potentially be secondary to pneumonia given elev ated white blood cell count, IV fluids were not administered given severely elevated BNP and suspicion that CHF is contributing to his hypoxemia today. Discussed with pt plan for admission to which he was agreeable. Additionally labs significant for lactic 4.2, total bilirubin 1.4, AST/ALT 1503, ALT 1178, alk phos 129 ordered ultrasound of the liver, patient has no right upper quadrant tenderness palpation and is not jaundiced. At time of admission and discussed with Dr. Velazquez, patient's PCP and admitting physician, states patient does have a history of alcohol and drug abuse. Case discussed with Dr. Velazquez who can accept patient for admission. Case was discussed with Dawit, critical care pulmonology who kindly accepted patient to the ICU. Shortly after patient was accepted for admission to ICU. He was noted to be tachycardic again after getting up to use the commode. HR 150s-180s. BP stable. Repeat EKG now showed atrial fibrillation with RvR. Weight based cardizem bolus 18 mg plus cardizem infusion and heparin ordered. Cardizem administration was delayed while awaiting pharmacy to send to ED, for this reason cardizem was administered just prior to pt being transported up to ICU. Undiagnosed new problem with uncertain prognosis? @ -No Drug Therapy requiring intensive monitoring for toxicity (Heparin, Nitro, Insulin, Cardizem)? @ heparin, cardizem Were any procedures done? @ -No Diagnosis/symptom? @Acute mixed hypoxic and hypercapnic respiratory failure, hypercapnic encephalopathy CEDRIC, SVT, atrial fibrillation with RvR Acute, or Chronic, or Acute on Chronic? Acute Uncomplicated (without systemic symptoms) or Complicated (systemic symptoms)? @ -Complicated Side effects of treatment? @ -No Exacerbation, Progression, or Severe Exacerbation? @ exacerbation Poses a threat to life or bodily function? How? (Chest pain, USA, MA, pneumonia, PE, COPD, DKA, ARF, appy, cholecystitis, CVA, Diverticulitis, Homicidal, Suicidal, threat to staff... and all critical care pts) Yes - Lab Data Result diagrams: 05/09/25 17:01 05/09/25 17:01 Lab Results 05/09/25 05/09/25 05/09/25 Range/Units 17:01 17:01 17:01 WBC 21.38 H (4.50-10.00) 10*3/uL RBC 4.86 (4.40-5.60) 10*6/uL Hgb 15.2 (13.0-17.0) g/dL Hct 49.2 (39.6-50.0) % MCV 101.2 H (80.0-97.0) fL MCH 31.3 (27.0-32.0) pg MCHC 30.9 L (32.0-37.0) g/dL Plt Count 244 (140-440) 10*3/uL MPV 10.1 (9.5-12.2) fL Immature Gran % (Auto) 0.6 % Neutrophils % 91.1 % Lymphocytes % 2.7 % Monocytes % 5.2 % Eosinophils % 0.0 % Basophils % 0.4 % Immature Gran # 0.13 H (0.00-0.04) 10*3/uL Neutrophils # 19.47 H (1.80-7.70) 10*3/uL Lymphocytes # 0.58 L (0.90-5.00) 10*3/uL Monocytes # 1.12 H (0.20-1.00) 10*3/uL Eosinophils # 0.00 L (0.04-0.35) 10*3/uL Basophils # 0.08 (0.00-0.10) 10*3/uL PT 20.2 H (10.0-12.5) sec INR 2.0 H (<1.2) APTT 24.1 (22.0-30.0) sec Sample Site ABG pH (7.35-7.45) ABG pCO2 (35-45) mmHg ABG pO2 (83-108) mmHg ABG HCO3 (21-25) mmol/L ABG Total CO2 (19-24) mmol/L ABG O2 Saturation (94-97) % ABG Base Excess mmol/L Abhi Test Hemoglobin (13.0-17.5) gm/dL FiO2 % Sodium 141 (137-145) mmol/L Potassium 5.5 H (3.5-5.1) mmol/L Chloride 94 L (98-107) mmol/L Carbon Dioxide 39 H (22-30) mmol/L Anion Gap 8 mmol/L BUN 48 H (9-20) mg/dL Creatinine 1.85 H (0.66-1.25) mg/dL Est GFR (CKD-EPI)AfAm 44 (>60 ml/min/1.73 sqM) Est GFR (CKD-EPI)NonAf 38 (>60 ml/min/1.73 sqM) Glucose 119 H (74-99) mg/dL Lactic Ac Sepsis Rflx Plasma Lactic Acid Kevin (0.7-2.0) mmol/L Calcium 8.1 L (8.4-10.2) mg/dL Total Bilirubin 1.4 H (0.2-1.3) mg/dL AST 1503 H (17-59) U/L ALT 1178 H (4-49) U/L Alkaline Phosphatase 129 H (38-126) U/L Troponin I (0.000-0.034) ng/mL NT-Pro-B Natriuret Pep 71678 pg/mL Total Protein 6.4 (6.3-8.2) g/dL Albumin 3.8 (3.5-5.0) g/dL 05/09/25 05/09/25 05/09/25 Range/Units 17:01 17:01 17:06 WBC (4.50-10.00) 10*3/uL RBC (4.40-5.60) 10*6/uL Hgb (13.0-17.0) g/dL Hct (39.6-50.0) % MCV (80.0-97.0) fL MCH (27.0-32.0) pg MCHC (32.0-37.0) g/dL Plt Count (140-440) 10*3/uL MPV (9.5-12.2) fL Immature Gran % (Auto) % Neutrophils % % Lymphocytes % % Monocytes % % Eosinophils % % Basophils % % Immature Gran # (0.00-0.04) 10*3/uL Neutrophils # (1.80-7.70) 10*3/uL Lymphocytes # (0.90-5.00) 10*3/uL Monocytes # (0.20-1.00) 10*3/uL Eosinophils # (0.04-0.35) 10*3/uL Basophils # (0.00-0.10) 10*3/uL PT (10.0-12.5) sec INR (<1.2) APTT (22.0-30.0) sec Sample Site rbrac ABG pH 7.28 L (7.35-7.45) ABG pCO2 78 H* (35-45) mmHg ABG pO2 87 (83-108) mmHg ABG HCO3 37 H (21-25) mmol/L ABG Total CO2 39 H (19-24) mmol/L ABG O2 Saturation 95.7 (94-97) % ABG Base Excess 6.8 mmol/L Abhi Test Yes Hemoglobin 15.5 (13.0-17.5) gm/dL FiO2 100 % Sodium (137-145) mmol/L Potassium (3.5-5.1) mmol/L Chloride (98-107) mmol/L Carbon Dioxide (22-30) mmol/L Anion Gap mmol/L BUN (9-20) mg/dL Creatinine (0.66-1.25) mg/dL Est GFR (CKD-EPI)AfAm (>60 ml/min/1.73 sqM) Est GFR (CKD-EPI)NonAf (>60 ml/min/1.73 sqM) Glucose (74-99) mg/dL Lactic Ac Sepsis Rflx Plasma Lactic Acid Kevin 4.2 H* (0.7-2.0) mmol/L Calcium (8.4-10.2) mg/dL Total Bilirubin (0.2-1.3) mg/dL AST (17-59) U/L ALT (4-49) U/L Alkaline Phosphatase (38-126) U/L Troponin I 0.121 H* (0.000-0.034) ng/mL NT-Pro-B Natriuret Pep pg/mL Total Protein (6.3-8.2) g/dL Albumin (3.5-5.0) g/dL 05/09/25 Range/Units 17:57 WBC (4.50-10.00) 10*3/uL RBC (4.40-5.60) 10*6/uL Hgb (13.0-17.0) g/dL Hct (39.6-50.0) % MCV (80.0-97.0) fL MCH (27.0-32.0) pg MCHC (32.0-37.0) g/dL Plt Count (140-440) 10*3/uL MPV (9.5-12.2) fL Immature Gran % (Auto) % Neutrophils % % Lymphocytes % % Monocytes % % Eosinophils % % Basophils % % Immature Gran # (0.00-0.04) 10*3/uL Neutrophils # (1.80-7.70) 10*3/uL Lymphocytes # (0.90-5.00) 10*3/uL Monocytes # (0.20-1.00) 10*3/uL Eosinophils # (0.04-0.35) 10*3/uL Basophils # (0.00-0.10) 10*3/uL PT (10.0-12.5) sec INR (<1.2) APTT (22.0-30.0) sec Sample Site ABG pH (7.35-7.45) ABG pCO2 (35-45) mmHg ABG pO2 (83-108) mmHg ABG HCO3 (21-25) mmol/L ABG Total CO2 (19-24) mmol/L ABG O2 Saturation (94-97) % ABG Base Excess mmol/L Abhi Test Hemoglobin (13.0-17.5) gm/dL FiO2 % Sodium (137-145) mmol/L Potassium (3.5-5.1) mmol/L Chloride (98-107) mmol/L Carbon Dioxide (22-30) mmol/L Anion Gap mmol/L BUN (9-20) mg/dL Creatinine (0.66-1.25) mg/dL Est GFR (CKD-EPI)AfAm (>60 ml/min/1.73 sqM) Est GFR (CKD-EPI)NonAf (>60 ml/min/1.73 sqM) Glucose (74-99) mg/dL Lactic Ac Sepsis Rflx Y Plasma Lactic Acid Kevin (0.7-2.0) mmol/L Calcium (8.4-10.2) mg/dL Total Bilirubin (0.2-1.3) mg/dL AST (17-59) U/L ALT (4-49) U/L Alkaline Phosphatase (38-126) U/L Troponin I (0.000-0.034) ng/mL NT-Pro-B Natriuret Pep pg/mL Total Protein (6.3-8.2) g/dL Albumin (3.5-5.0) g/dL Disposition Clinical Impression: Acute respiratory failure with hypoxia and hypercapnia, Sepsis, CEDRIC (acute kidney injury), SVT (supraventricular tachycardia), Atrial fibrillation with RVR Disposition: ADMITTED IP TO THIS HOSP Condition: Fair
[2025-05-09 17:09] LABS: ABG HCO3 37 mmol/L (21-25); ABG PH 7.28 (7.35-7.45); ABG PO2 87 mmHg (83-108); ABG TCO2 39 mmol/L (19-24); Allen Test Performed? Yes
[2025-05-09] MEDS: FUROSEMIDE 10 MG/ML 4 ML VIAL IV STA ×2 (17:09→18:12)
[2025-05-09 17:26] LABS: ABG PCO2 78 mmHg (35-45)
[2025-05-09 17:30] LABS: Basophils # (A) 0.08 10*3/uL (0.00-0.10); Basophils % (A) 0.4 %; Eosinophils # (A) 0.00 10*3/uL (0.04-0.35); Eosinophils % (A) 0.0 %; HCT 49.2 % (39.6-50.0); HGB 15.2 g/dL (13.0-17.0); Lymphocytes # (A) 0.58 10*3/uL (0.90-5.00); Lymphocytes % (A) 2.7 %; MCH 31.3 pg (27.0-32.0); MCHC 30.9 g/dL (32.0-37.0); MCV 101.2 fL (80.0-97.0); Monocytes # (A) 1.12 10*3/uL (0.20-1.00); Monocytes % (A) 5.2 %; Neutrophils # (A) 19.47 10*3/uL (1.80-7.70); Neutrophils % (A) 91.1 %; Platelet Count 244 10*3/uL (140-440); RBC 4.86 10*6/uL (4.40-5.60); RDW 13.4 % (11.5-14.5); WBC 21.38 10*3/uL (4.50-10.00)
[2025-05-09 17:38] LABS: INR 2.0 (<1.2); Partial Thromboplastin Time 24.1 sec (22.0-30.0); Prothrombin Time 20.2 sec (10.0-12.5)
[2025-05-09 17:42] LABS: African American GFR (CKD) 44 (>60 ml/min/1.73 sqM); Albumin 3.8 g/dL (3.5-5.0); Alkaline Phosphatase 129 U/L (38-126); Anion Gap 8 mmol/L; Blood Urea Nitrogen 48 mg/dL (9-20); Calcium 8.1 mg/dL (8.4-10.2); Carbon Dioxide 39 mmol/L (22-30); Chloride 94 mmol/L (98-107); Glucose 119 mg/dL (74-99); Non-African American GFR(CKD) 38 (>60 ml/min/1.73 sqM); Potassium 5.5 mmol/L (3.5-5.1); Sodium 141 mmol/L (137-145); Total Protein 6.4 g/dL (6.3-8.2)
--- NOTE | 2025-05-09 17:44 | XR ---
EXAMINATION TYPE: XR chest 1V portable DATE OF EXAM: 05/09/2025 5:36 PM COMPARISON: Prior chest radiograph 06/11/2024. CLINICAL INDICATION: Male, 64 years old with history of PHILIPPE; [facility] TECHNIQUE: XR chest 1V portable Frontal view of the chest. FINDINGS: Lungs/Pleura: Exam severely limited due to low lung volumes. Possible small left pleural effusion. No pneumothorax. No sizable right-sided pleural effusion. Pulmonary vascularity: Pulmonary vascular congestion. Heart/mediastinum: Cardiomediastinal silhouette is prominent in size. Musculoskeletal: No acute osseous pathology. Previous ORIF of the left clavicle. Other findings: None IMPRESSION: Cardiomegaly and pulmonary vascular congestive changes with possible small left pleural effusion. Ove rall, study is significantly limited due to low lung volumes. [facility], , 05/09/2025 5:41 PM
[2025-05-09 17:51] LABS: NT-Pro-B-Type Natriuretic Pept 17500 pg/mL
[2025-05-09 17:55] LABS: ALT 1178 U/L (4-49)
[2025-05-09 18:19] LABS: AST 1503 U/L (17-59)
[2025-05-09] MEDS ORDERED: ACETAMINOPHEN IV (For NPO) 1,000 MG in SALINE 1 100ML.BAG IVPB PRN (18:19)
[2025-05-09] MEDS ORDERED: NALOXONE 0.4 MG/ML 1 ML VIAL IV PRN (18:19)
[2025-05-09] MEDS: cefTRIAXone IN SWFI 1,000 MG/10 ML SYRINGE IVP STA (18:26)
[2025-05-09] MEDS ORDERED: IPRATROPIUM-ALBUTEROL 3 ML NEB INHALATION PRN (18:27)
[2025-05-09] MEDS: AZITHROMYCIN 500 MG in SODIUM CHLORIDE 0.9% 250 ML IVPB STA (18:27)
[2025-05-09] MEDS: DILTIAZEM 5 MG/ML 5 ML VIAL IVP STA (18:44)
[2025-05-09] MEDS ORDERED: Potassium Replacement Protocol 1 EACH MISC MISCELLANE PRN (18:46)
[2025-05-09] MEDS ORDERED: Magnesium Replacement Protocol 1 EACH MISC MISCELLANE PRN (18:46)
[2025-05-09] MEDS: HEPARIN SOD,PORK IN 0.45% NACL 25,000 UNIT in 0.45% NACL 1 250ML.BAG IV SCH (19:03)
[2025-05-09] MEDS: HEPARIN SODIUM 1,000 UN/ML (10ML VL) IV ONE (19:05)
[2025-05-09] MEDS: DILTIAZEM 125 MG in DEXTROSE 5% IN WATER 100 ML IV SCH (19:06)
[2025-05-09] MEDS: IPRATROPIUM 0.5 MG/2.5 ML NEBU INHALATION STA (19:12)
[2025-05-09] MEDS: ALBUTEROL NEBULIZED 2.5 MG/3 ML INHALATION STA (19:12)
[2025-05-09 19:28] LABS: Glucose,Whole Blood 115 mg/dL (70-110)
[2025-05-09 19:49] LABS: ABG HCO3 37 mmol/L (21-25); ABG PH 7.31 (7.35-7.45); ABG PO2 153 mmHg (83-108); ABG TCO2 39 mmol/L (19-24); Allen Test Performed? Yes
[2025-05-09 19:50] LABS: ABG PCO2 74 mmHg (35-45)
[2025-05-09] MEDS: IPRATROPIUM-ALBUTEROL 3 ML NEB INHALATION SCH (19:52)
[2025-05-09] MEDS ORDERED: LORazepam 1 MG/0.5 ML VIAL IV PRN ×2 (20:15)
[2025-05-09] MEDS: FAMOTIDINE 20 MG/2 ML VIAL IV SCH (20:25)
[2025-05-09] MEDS: THIAMINE 100 MG/ML 2 ML VIAL IM STA (20:30)
--- NOTE | 2025-05-09 21:20 | US ---
EXAMINATION TYPE: US abdomen limited DATE OF EXAM: 05/09/2025 COMPARISON: NONE CLINICAL INDICATION: Male, 64 years old with history of ALT 1140; Abnormal labs. Limited due to anjana ent unable to roll unresponsive TECHNIQUE: Grayscale and color Doppler imaging of the right upper quadrant. FINDINGS: EXAM MEASUREMENTS: Liver Length: 16.3 cm Gallbladder Wall: .2 cm CBD: .7 cm, color Doppler imaging was utilized to isolate the common bile duct for measurement. 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 No convincing sonographic evidence of an obstructing st one or other lesion. Consider MRCP or ERCP for further evaluation as clinically warranted. [facility], , 05/09/2025 9:17 PM
--- NOTE | 2025-05-09 22:54 | HP ---
HISTORY AND PHYSICAL CHIEF COMPLAINT: Mental status changes. HISTORY OF PRESENT ILLNESS: Another of many admissions for this chronic alcoholic and substance abuser, who is frequently seen in emergency rooms. He has been in and out of the hospitals particularly [facility] recently where he would come in for various problems including shortness of breath, stridor, flexion contractures of the neck, cellulitis of lower extremities, etc., and then signed out before merle. He was just in that hospital the other day and left again AMA. He came in this time, very lethargic, and acute respiratory failure with hypoxemia, hypercarbia, and coma. REVIEW OF SYSTEMS: Unobtainable. Past Medical History, Family History, and Personal Social History are otherwise unchanged or unobtainable. PHYSICAL EXAMINATION: GENERAL: He is very lethargic. He does have flexion contracture of the neck. CHEST: Demonstrates poor breath sounds with rales and rhonchi throughout and expiratory wheezing and bradycardia. HEART: Demonstrates sinus tachycardia. ABDOMEN: Soft. EXTREMITIES: Normal except for edema of both legs below the knees with cellulitis. IMPRESSION: 1. Mental status changes. 2. Respiratory failure. 3. Chronic obstructive pulmonary disease. 4. History of narcotic addiction and abuse. PLAN: 1. Bedrest. 2. IV fluids. 3. BiPAP. 4. ICU management. 5. Pulmonology consult. AMAIRANI / ELAINE: [id number] /
[2025-05-10 01:04] LABS: African American GFR (CKD) 56 (>60 ml/min/1.73 sqM); Anion Gap 9 mmol/L; Blood Urea Nitrogen 53 mg/dL (9-20); Calcium 8.1 mg/dL (8.4-10.2); Carbon Dioxide 38 mmol/L (22-30); Chloride 93 mmol/L (98-107); Glucose 123 mg/dL (74-99); Non-African American GFR(CKD) 49 (>60 ml/min/1.73 sqM); Potassium 4.9 mmol/L (3.5-5.1); Sodium 140 mmol/L (137-145)
--- NOTE | 2025-05-10 01:59 | P.CNPUL ---
History of Present Illness Consult date: 05/10/25 Requesting physician: Debra France Reason for consult: other (ICU management) Chief complaint: Altered mental status, hypoxia History of present illness: Patient is a 64-year-old male with past medical history significant for COPD, DVT/PE, loculated left-sided pleural effusion, alcohol abuse, polysubstance abuse. Patient brought in by EMS yesterday evening. Reportedly, the patient is homeless. He was at a friend's house the previous day and noted to be increasingly confused and lethargic. When EMS arrived the patient's pulse ox was reportedly 59%. He was barely responsive, requiring BVM ventilation. The patient was not intubated. Transitioned to BiPAP on arrival. Found to be in SVT, given IV push adenosine 6 mg and then 12 mg which reportedly terminated the arrhythmia. Later, the patient went into atrial fibrillation with RVR. He was given a Cardizem IV bolus and placed on a Cardizem infusion. Further workup including a chest x-ray showing cardiomegaly, pulmonary vascular congestion, and possible small left pleural effusion. He was given 80 mg of total IV Lasix in [facility] ED. Labs including a CBC with a WBC count of 22.4, hemoglobin 15.2, platelets 244. CMP with a sodium of 141, potassium 5.5, chloride 94, serum bicarb 39, BUN 48, creatinine 1.85, glucose 119. Lactic 2.1. AST 1503, ALT 1178, ALP 129. [place]roponin [place] [address]. D-dimer also was elevated has 7.3. Patient was previously systemically heparinized for the atrial fibrillation. Ultrasound of abdomen remarkable for dilated CBD measuring up to 7 mm in diameter. No evidence of obstructing stone. Patient is now being evaluated in intensive care unit. He remains on BiPAP with current settings 12/6 and FiO2 of 80%. He does wake up to verbal stimuli and has sustained awakening. BiPAP does make it difficult to communicate. Follow-up ABG with some improvement, done on FiO2 of 100% with a PaO2 of 153, pCO2 of 74, pH of 7.31. He does have lower extremity edema. He has an external urinary catheter, and there is 650 cc of urine collected. Continues on Cardizem at 10 mg/h. Also, systemically heparinized. Current rhythm appears to be normal sinus in the mid 70s beats per minute. Blood pressure is normotensive. He was previously empirically covered on azithromycin and Rocephin. Afebrile. Review of Systems Noninvasive BiPAP making it difficult to communicate. Past Medical History Past Medical History: COPD, Diabetes Mellitus, Deep Vein Thrombosis (DVT), Hypertension, Musculoskeletal Disorder, Pneumonia, Pulmonary Embolus (PE) Additional Past Medical History / Comment(s): "broken back 01/06/19", "heart arrhythmia's," DVT right leg, PE History of Any Multi-Drug Resistant Organisms: None Reported Past Surgical History: Orthopedic Surgery Additional Past Surgical History / Comment(s): left clavicle, jaw, lt leg Past Anesthesia/Blood Transfusion Reactions: No Reported Reaction Past Psychological History: Anxiety, Depression, Schizophrenia Smoking Status: Former smoker Past Alcohol Use History: None Reported, Abuse, Daily, Heavy Past Drug Use History: None Reported - Past Family History Sister(s) Family Medical History: Cancer Additional Family Medical History / Comment(s): 2 sisters from cancer Mother Family Medical History: Coronary Artery Disease (CAD) Father Additional Family Medical History / Comment(s): Alcoholic Medications and Allergies Home Medications Medication Instructions Recorded Confirmed Type Albuterol Inhaler [Ventolin Hfa 2 puff INHALATION RT-Q6H PRN 05/09/25 05/09/25 History Inhaler] Albuterol Nebulized [Ventolin 2.5 mg INHALATION RT-QID PRN 05/09/25 05/09/25 History Nebulized] Budesonide-Formot 160-4.5 Mcg 2 puff INHALATION RT-BID 05/09/25 05/09/25 History [Symbicort 160-4.5 Mcg Inhaler] Buprenorphine HCl/Naloxone HCl 1 film SL BID 05/09/25 05/09/25 History [Suboxone 8 mg-2 mg Sl Film] Furosemide [Lasix] 80 mg PO DAILY 05/09/25 05/09/25 History Meloxicam [Mobic] 15 mg PO DAILY 05/09/25 05/09/25 History Multivitamins, Thera [Multivitamin 1 tab PO DAILY 05/09/25 05/09/25 History (formulary)] Mupirocin 2% Oint [Bactroban 2% 1 applic TOPICAL TID 05/09/25 05/09/25 History Oint] Nicotine 21Mg/24Hr Patch [Habitrol] 1 patch TRANSDERM DAILY PRN 05/09/25 05/09/25 History Allergies Allergy/AdvReac Type Severity Reaction Status Date / Time No Known Allergies Allergy Verified 05/09/25 18:47 Physical Exam Vitals: Vital Signs Temp Pulse Resp BP Pulse Ox FiO2 05/10/25 00:00 98 F 73 15 108/93 96 70 05/09/25 23:52 78 15 108/93 93 L 05/09/25 23:00 67 13 97/63 97 05/09/25 22:00 66 17 101/63 95 05/09/25 21:00 124 H 15 114/93 96 80 05/09/25 20:09 126 H 05/09/25 20:00 97.9 F 142 H 9 L 103/82 98 80 05/09/25 19:57 122 H 80 05/09/25 19:53 144 H 12 118/103 92 L 100 05/09/25 19:06 135 H 20 140/90 99 05/09/25 17:30 100 18 140/87 99 05/09/25 17:22 180 H 20 140/83 99 05/09/25 16:54 98.6 F 102 H 20 128/90 91 L 05/09/25 16:53 100 Intake and Output 05/09/25 05/09/25 05/10/25 14:59 22:59 06:59 Intake Total 31.584 Output Total 800 300 Balance -768.416 -300 Intake: Intake, IV Titration 31.584 Amount Diltiazem 125 mg In 31.584 Dextrose 5% in Water 100 ml @ 5 MG/HR 5 mls/hr IV .Q24H [facility] Rx#:[id number] Output: Urine 800 300 Other: Voiding Method External Catheter External Catheter Weight 68.039 kg GENERAL EXAM: 64-year-old male, with sustained awakening, on BiPAP with settings 12/6 and FiO2 80%, generating adequate tidal volumes around 300 to 400 cc. Conversational dyspnea noted. HEAD: Normocephalic and atraumatic EYES: Normal reaction of pupils, equal size. Anicteric sclera. NOSE: Clear with pink turbinates. THROAT: No erythema or exudates. NECK: No masses, no JVD. CHEST: No chest wall deformity. LUNGS: Equal air entry with diminished bibasilar lung sounds and minimal inspiratory crackles CVS: S1 and S2 normal with no audible murmur, regular rhythm. No extra heart sounds ABDOMEN: No hepatosplenomegaly, active bowel sounds, no guarding or rigidity. Negative Zafar sign SPINE: Kyphoscoliosis SKIN: Bilateral venous stasis dermatitis, right anterior weeping wound with dressing CENTRAL NERVOUS SYSTEM: No focal deficits, tone is normal in all 4 extremities. EXTREMITIES: Bilateral 1+ lower extremity edema. No clubbing, or cyanosis. Peripheral pulses are intact. Results - Laboratory Findings CBC and BMP: 05/10/25 06:31 05/10/25 06:31 ABG ABG pH 7.31 (7.35-7.45) L 05/09/25 19:43 ABG pCO2 74 mmHg (35-45) H* 05/09/25 19:43 ABG pO2 153 mmHg (83-108) H 05/09/25 19:43 ABG O2 Saturation 99.3 % (94-97) H 05/09/25 19:43 PT/INR, D-dimer PT 20.2 sec (10.0-12.5) H 05/09/25 17:01 INR 2.0 (<1.2) H 05/09/25 17:01 D-Dimer 7.31 mg/L FEU (<0.60) H 05/09/25 18:50 Abnormal lab findings: Abnormal Labs 05/09/25 05/09/25 05/09/25 17:01 17:01 17:01 WBC 21.38 H MCV 101.2 H MCHC 30.9 L Immature Gran # 0.13 H Neutrophils # 19.47 H Lymphocytes # 0.58 L Monocytes # 1.12 H Eosinophils # 0.00 L PT 20.2 H INR 2.0 H D-Dimer ABG pH ABG pCO2 ABG pO2 ABG HCO3 ABG Total CO2 ABG O2 Saturation Potassium 5.5 H Chloride 94 L Carbon Dioxide 39 H BUN 48 H Creatinine 1.85 H Glucose 119 H POC Glucose (mg/dL) Plasma Lactic Acid Kevin Calcium 8.1 L Total Bilirubin 1.4 H AST 1503 H ALT 1178 H Alkaline Phosphatase 129 H Troponin I 05/09/25 05/09/25 05/09/25 17:01 17:01 17:06 WBC MCV MCHC Immature Gran # Neutrophils # Lymphocytes # Monocytes # Eosinophils # PT INR D-Dimer ABG pH 7.28 L ABG pCO2 78 H* ABG pO2 ABG HCO3 37 H ABG Total CO2 39 H ABG O2 Saturation Potassium Chloride Carbon Dioxide BUN Creatinine Glucose POC Glucose (mg/dL) Plasma Lactic Acid Kevin 4.2 H* Calcium Total Bilirubin AST ALT Alkaline Phosphatase Troponin I 0.121 H* 05/09/25 05/09/25 05/09/25 18:50 19:27 19:43 WBC MCV MCHC Immature Gran # Neutrophils # Lymphocytes # Monocytes # Eosinophils # PT INR D-Dimer 7.31 H ABG pH 7.31 L ABG pCO2 74 H* ABG pO2 153 H ABG HCO3 37 H ABG Total CO2 39 H ABG O2 Saturation 99.3 H Potassium Chloride Carbon Dioxide BUN Creatinine Glucose POC Glucose (mg/dL) 115 H Plasma Lactic Acid Kevin Calcium Total Bilirubin AST ALT Alkaline Phosphatase Troponin I 05/09/25 20:26 WBC MCV MCHC Immature Gran # Neutrophils # Lymphocytes # Monocytes # Eosinophils # PT INR D-Dimer ABG pH ABG pCO2 ABG pO2 ABG HCO3 ABG Total CO2 ABG O2 Saturation Potassium Chloride Carbon Dioxide BUN Creatinine Glucose POC Glucose (mg/dL) Plasma Lactic Acid Kevin 2.1 H* Calcium Total Bilirubin AST ALT Alkaline Phosphatase Troponin I - Diagnostic Findings Chest x-ray: image reviewed Assessment and Plan Assessment: Acute hypoxemic and hypercapnic respiratory failure, requiring BiPAP, chest x- ray showing cardiomegaly, pulmonary vascular congestion, possible small left pleural effusion. Suspect combined acute COPD exacerbation and acute CHF exacerbation; underlying pneumonia is not excluded. Tachyarrhythmias, reportedly initially in SVT and given 6 mg of adenosine followed by 12 mg of adenosine which converted the patient to normal sinus rhythm followed by atrial fibrillation with RVR, patient was loaded with IV Cardizem followed by titratable infusion. Current rhythm appears normal sinus on bedside monitor Acute leukocytosis Acute kidney injury, creatinine 1.85 Lactic acidemia, improving Elevated D-dimer, systemically heparinized Transaminitis, Ultrasound of abdomen remarkable for dilated CBD measuring up to 7 mm in diameter. No evidence of obstructing stone. History of DVT/PE History of loculated left-sided pleural effusion with previous pigtail catheter History of alcohol abuse history of polysubstance abuse Chronic tobacco use Kyphoscoliosis Plan: Patient's medications, labs, chest x-ray reviewed Continue on BiPAP with current settings Follow-up ABG showing improvement in patient's acid-base balance Continue IV Lasix 40 mg twice daily Wean IV Cardizem, Continue IV heparin per protocol Obtain transthoracic echocardiogram Monitor I&Os, renal function Obtain venous Doppler of lower extremities Continue empiric antibiotics Continue bronchodilators add IV Solu-Medrol Case to be reviewed with my supervising physician, and further recommendations to follow I have personally seen and examined the patient, performed the documentation and the assessment and plan as written. Number of minutes spent on the visit:25 05/10/2025, the patient is being seen in a joint evaluation along with the nurse practitioner. This evaluation was done more than 30 minutes. This patient presented to the hospital because of altered mental status and shortness of breath. The patient was also having tachyarrhythmias initially SVT treated with adenosine and subsequently went into atrial fibrillation with rapid ventricular response and the patient was started on Cardizem drip and IV heparin. The patient is known to have COPD and the patient has had previous history of left lower lobe pneumonia, loculated left-sided pleural effusion back in 2022. He has history of alcoholism. The patient is currently on BiPAP at a pressure of 12/6 with an FiO2 of 60%. He is on a Cardizem drip at 5 mg an hour and is converted back in normal sinus rhythm. He remains on IV heparin. Normal saline running at 50 cc an hour. He has a skin abrasion in his right lower extremity and he is arousable and is communicating. The white cell count 24.6 with a hemoglobin 15.1 and platelet count of 218. BUN is 15 with a creatinine of 1.3 and a sodium levels at 133 and potassium level is at 4.4. Serum bicarb is at 39. He is arousable and is communicating. No signs of any delirium tremens at this point. He is on bronchodilators. He is on IV Rocephin and Zithromax. He is on IV Lasix 40 mg every 12 hours. Cardiology on the case regarding ongoing cardiac arrhythmias. Echocardiogram is also in progress. The patient be kept in the intensive care unit for now. Will keep him on BiPAP for now. Gradual weaning down to a nasal cannula based on his overall progress. Doppler of the lower extremity was negative and repeat chest x-ray shows COPD with patchy airspace disease in the left lower lobe, likely chronic. Time with Patient: Greater than 30
[2025-05-10] MEDS: HEPARIN SODIUM,PORCINE 5,000 UNIT/ML 1 ML VIAL SQ SCH (02:45)
[2025-05-10] MEDS: SODIUM CHLORIDE 0.9% 1,000 ML IV SCH (02:48)
[2025-05-10] MEDS: FORMOTEROL FUMARATE 20 MCG/2 ML NEBU INHALATION SCH (06:08)
[2025-05-10] MEDS: BUDESONIDE 1 MG/2 ML NEBU INHALATION SCH (06:08)
[2025-05-10] MEDS: methylPREDNISolone SOD SUCCI 125 MG/2 ML VIAL IV SCH (06:46)
[2025-05-10 06:48] LABS: Basophils # (A) 0.06 10*3/uL (0.00-0.10); Basophils % (A) 0.2 %; Eosinophils # (A) 0.00 10*3/uL (0.04-0.35); Eosinophils % (A) 0.0 %; HCT 49.3 % (39.6-50.0); HGB 15.1 g/dL (13.0-17.0); Lymphocytes # (A) 0.44 10*3/uL (0.90-5.00); Lymphocytes % (A) 1.8 %; MCH 30.4 pg (27.0-32.0); MCHC 30.6 g/dL (32.0-37.0); MCV 99.4 fL (80.0-97.0); Monocytes # (A) 1.23 10*3/uL (0.20-1.00); Monocytes % (A) 5.0 %; Neutrophils # (A) 22.76 10*3/uL (1.80-7.70); Neutrophils % (A) 92.4 %; Platelet Count 218 10*3/uL (140-440); RBC 4.96 10*6/uL (4.40-5.60); RDW 13.6 % (11.5-14.5); WBC 24.65 10*3/uL (4.50-10.00)
[2025-05-10 07:28] LABS: African American GFR (CKD) 64 (>60 ml/min/1.73 sqM); Blood Urea Nitrogen 51 mg/dL (9-20); Calcium 7.7 mg/dL (8.4-10.2); Chloride 96 mmol/L (98-107); Glucose 121 mg/dL (74-99); Non-African American GFR(CKD) 55 (>60 ml/min/1.73 sqM); Potassium 4.4 mmol/L (3.5-5.1); Sodium 144 mmol/L (137-145)
[2025-05-10 07:35] LABS: Anion Gap 9 mmol/L; Carbon Dioxide 39 mmol/L (22-30)
--- NOTE | 2025-05-10 07:38 | US ---
EXAMINATION TYPE: US venous doppler duplex LE DATE OF EXAM: 05/10/2025 12:58 AM COMPARISON: US 2019 CLINICAL INDICATION: Male, 64 years old with history of rule out DVTs; pain and swelling TECHNIQUE: The lower extremity deep venous system is examined utilizing real time linear array sonog emily with graded compression, color doppler sonography, and spectral doppler. SIDE PERFORMED: Bilateral FINDINGS: VESSELS IMAGED: Common Femoral Vein Deep Femoral Vein Greater Saphenous Vein * Femoral Vein Popliteal Vein Small Saphenous Vein * Proximal Calf Veins Posterior tibial veins (* superficial vessels) Right Leg: No evidence of DVT. Peroneal veins were not visualized. Left Leg: No evidence of DVT. Peroneal veins were not visualized. IMPRESSION: No evidence for DVT within the bilateral lower extremities. [facility], , 05/10/2025 7:35 AM
[2025-05-10] MEDS: HEPARIN SODIUM 1,000 UN/ML (10ML VL) IV PRN (08:07)
--- NOTE | 2025-05-10 08:27 | XR ---
EXAMINATION TYPE: XR chest 1V DATE OF EXAM: 05/10/2025 COMPARISON: 05/09/2025 CLINICAL INDICATION: Male, 64 years old with history of Pulmonary Edema; TECHNIQUE: Single frontal view of the chest is obtained. FINDINGS: Screw fixation left clavicular shaft. Heart borderline enlarged. Hyperinflation. Mild inte rstitial densities similar. Multiple left-sided rib fracture deformities. There is patchy opacity thr oughout the left lower lung. No sizable pleural effusion. IMPRESSION: Improved positioning from prior exam. There is COPD and patchy airspace disease at the l eft lower lung. Mild interstitial density is similar. [facility], , 05/10/2025 8:24 AM
--- NOTE | 2025-05-10 09:30 | P.CRDCN ---
History of Present Illness Consult date: 05/10/25 Consult reason: congestive heart failure History of present illness: The patient is a 64-year-old male who was brought to the emergency room for m ental status changes. The patient is currently homeless, however he was noted to be confused and lethargic the day prior at a friend's home. Patient's pulse ox initially was in the 70s on arrival to the emergency room, where he was placed on BiPAP. Initial EKG showed SVT where he had received adenosine, converting to sinus rhythm. Shortly thereafter he went into atrial fibrillation with RVR. He was started on a Cardizem drip, and nursing staff states he converted overnight back to sinus rhythm. At the time of my examination the patient was undergoing echocardiogram. He is currently on BiPAP with labored breathing. DIAGNOSTICS: Initial EKG shows SVT, followed by sinus tachycardia 3rd EKG shows atrial fibrillation with RVR. Chest x-ray shows cardiomegaly and pulmonary vascular congestion with small left pleural effusion Lower extremity venous Doppler negative for DVT Lab data: WBC 24.6, hemoglobin 15.1, Knapp crit 49.3, platelet 218, sodium 144, potassium 40.4, BUN 51, creatinine 1.37, AST 1503, ALT 1178, troponin 0.12, BNP 17,500 REVIEW OF SYSTEMS: Patient obtunded. Unable to complete review of systems. PHYSICAL EXAMINATION: This is a 64-year-old male in mild respiratory distress at the time of my examination. HEENT: Head is atraumatic, normocephalic. Pupils are equal, round. There is no jugular venous distention. No carotid bruit is heard. CHEST EXAMINATION: Lungs are diminished to auscultation. No chest wall tenderness is noted on palpation or with deep breathing. HEART EXAMINATION: Heart regular rate and rhythm. S1, S2 heard. No murmurs, gallops or rub. ABDOMEN: Soft, nontender. Bowel sounds are heard. No organomegaly noted. EXTREMITIES: Weak peripheral pulses. Mild lower extremity edema. Wounds noted on right briones NEUROLOGIC EXAMINATION: Patient is obtunded, alert and oriented x1. FINAL ASSESSMENT AND PLAN: Mental status changes AVNRT, s/p adenosine A-fib with RVR Congestive heart failure Elevated D-dimer Transaminitis Chronic obstructive pulmonary disease History of EtOH abuse History of polysubstance abuse Chronic tobacco use History of pulmonary emboli and DVT PLAN: Continue Cardizem. Will transition to oral medication once no longer n.p.o. No need for long-term anticoagulation as atrial fibrillation followed adenosine administration Awaiting echocardiogram results Further recommendations to be based on clinical course I am dictating on behalf of Dr Nikolai Templeton's history/physical and assessment/plan. Past Medical History Past Medical History: COPD, Diabetes Mellitus, Deep Vein Thrombosis (DVT), Hypertension, Musculoskeletal Disorder, Pneumonia, Pulmonary Embolus (PE) Additional Past Medical History / Comment(s): "broken back 01/06/19", "heart arrhythmia's," DVT right leg, PE History of Any Multi-Drug Resistant Organisms: None Reported Past Surgical History: Orthopedic Surgery Additional Past Surgical History / Comment(s): left clavicle, jaw, lt leg Past Anesthesia/Blood Transfusion Reactions: No Reported Reaction Past Psychological History: Anxiety, Depression, Schizophrenia Smoking Status: Former smoker Past Alcohol Use History: None Reported, Abuse, Daily, Heavy Past Drug Use History: None Reported - Past Family History Sister(s) Family Medical History: Cancer Additional Family Medical History / Comment(s): 2 sisters from cancer Mother Family Medical History: Coronary Artery Disease (CAD) Father Additional Family Medical History / Comment(s): Alcoholic Medications and Allergies Home Medications Medication Instructions Recorded Confirmed Type Albuterol Inhaler [Ventolin Hfa 2 puff INHALATION RT-Q6H PRN 05/09/25 05/09/25 History Inhaler] Albuterol Nebulized [Ventolin 2.5 mg INHALATION RT-QID PRN 05/09/25 05/09/25 History Nebulized] Budesonide-Formot 160-4.5 Mcg 2 puff INHALATION RT-BID 05/09/25 05/09/25 History [Symbicort 160-4.5 Mcg Inhaler] Buprenorphine HCl/Naloxone HCl 1 film SL BID 05/09/25 05/09/25 History [Suboxone 8 mg-2 mg Sl Film] Furosemide [Lasix] 80 mg PO DAILY 05/09/25 05/09/25 History Meloxicam [Mobic] 15 mg PO DAILY 05/09/25 05/09/25 History Multivitamins, Thera [Multivitamin 1 tab PO DAILY 05/09/25 05/09/25 History (formulary)] Mupirocin 2% Oint [Bactroban 2% 1 applic TOPICAL TID 05/09/25 05/09/25 History Oint] Nicotine 21Mg/24Hr Patch [Habitrol] 1 patch TRANSDERM DAILY PRN 05/09/25 05/09/25 History Allergies Allergy/AdvReac Type Severity Reaction Status Date / Time No Known Allergies Allergy Verified 05/09/25 18:47 Physical Exam Vitals: Vital Signs Temp Pulse Resp BP Pulse Ox FiO2 05/10/25 07:00 82 25 H 109/67 95 05/10/25 06:29 85 05/10/25 06:19 79 05/10/25 06:18 79 05/10/25 06:08 80 60 05/10/25 06:00 80 13 121/69 95 05/10/25 05:00 78 13 118/72 94 L 60 05/10/25 04:01 60 05/10/25 04:00 97.8 F 77 12 106/67 96 60 05/10/25 03:00 73 13 100/62 95 05/10/25 02:00 75 15 100/72 94 L 05/10/25 01:00 75 17 103/66 94 L 05/10/25 00:00 98 F 73 15 108/93 96 70 05/09/25 23:52 78 15 108/93 93 L 05/09/25 23:00 67 13 97/63 97 05/09/25 22:00 66 17 101/63 95 05/09/25 21:00 124 H 15 114/93 96 80 05/09/25 20:09 126 H 05/09/25 20:00 97.9 F 142 H 9 L 103/82 98 80 05/09/25 19:57 122 H 80 05/09/25 19:53 144 H 12 118/103 92 L 100 05/09/25 19:06 135 H 20 140/90 99 05/09/25 17:30 100 18 140/87 99 05/09/25 17:22 180 H 20 140/83 99 05/09/25 16:54 98.6 F 102 H 20 128/90 91 L 05/09/25 16:53 100 Intake and Output 05/09/25 05/10/25 05/10/25 22:59 06:59 14:59 Intake Total 31.584 250 154.512 Output Total 800 1400 250 Balance -768.416 -1150 -95.488 Intake: Intake, IV Titration 31.584 250 154.512 Amount Diltiazem 125 mg In 31.584 Dextrose 5% in Water 100 ml @ 5 MG/HR 5 mls/hr IV .Q24H [facility] Rx#:[id number] Heparin Sod,Pork in 0.45% 104.512 NaCl 25,000 unit In 0.45 % NaCl 1 250ml.bag @ 12 UNITS/KG/HR 8.165 mls/hr IV .Q24H [facility] Rx#: [id number] Sodium Chloride 0.9% 1, 250 50 000 ml @ 50 mls/hr IV . Q20H [facility] Rx#:[id number] Output: Urine 800 1400 250 Other: Voiding Method External Catheter External Catheter Weight 67.4 kg 67.4 kg Results 05/10/25 06:31 05/10/25 06:31 Cardiac Enzymes 05/09/25 05/09/25 Range/Units 17:01 17:01 AST 1503 H (17-59) U/L Troponin I 0.121 H* (0.000-0.034) ng/mL Coagulation 05/09/25 05/10/25 05/10/25 Range/Units 17:01 01:35 06:31 PT 20.2 H (10.0-12.5) sec APTT 24.1 29.8 30.4 H (22.0-30.0) sec CBC 05/09/25 05/10/25 Range/Units 17:01 06:31 WBC 21.38 H 24.65 H (4.50-10.00) 10*3/uL RBC 4.86 4.96 (4.40-5.60) 10*6/uL Hgb 15.2 15.1 (13.0-17.0) g/dL Hct 49.2 49.3 (39.6-50.0) % Plt Count 244 218 (140-440) 10*3/uL Comprehensive Metabolic Panel 05/09/25 05/09/25 05/10/25 Range/Units 17:01 23:38 06:31 Sodium 141 140 144 (137-145) mmol/L Potassium 5.5 H 4.9 4.4 (3.5-5.1) mmol/L Chloride 94 L 93 L 96 L (98-107) mmol/L Carbon Dioxide 39 H 38 H 39 H (22-30) mmol/L BUN 48 H 53 H 51 H (9-20) mg/dL Creatinine 1.85 H 1.52 H 1.37 H (0.66-1.25) mg/dL Glucose 119 H 123 H 121 H (74-99) mg/dL Calcium 8.1 L 8.1 L 7.7 L (8.4-10.2) mg/dL AST 1503 H (17-59) U/L ALT 1178 H (4-49) U/L Alkaline Phosphatase 129 H (38-126) U/L Total Protein 6.4 (6.3-8.2) g/dL Albumin 3.8 (3.5-5.0) g/dL Current Medications Generic Name Dose Route Start Last Admin Trade Name Freq PRN Reason Stop Dose Admin Albuterol/Ipratropium 3 ml 05/09/25 18:27 Ipratropium-Albuterol 3 Ml Neb INHALATION RT-Q4H PRN Shortness Of Breath Or Wheezing Albuterol/Ipratropium 3 ml 05/09/25 20:00 05/10/25 06:08 Ipratropium-Albuterol 3 Ml Neb INHALATION 3 ml RT-QID [facility] Administration Budesonide 1 mg 05/10/25 08:00 05/10/25 06:08 Budesonide 1 Mg/2 Ml Nebu INHALATION 1 mg RT-BID [facility] Administration Famotidine 20 mg 05/09/25 21:00 05/09/25 20:25 Famotidine 20 Mg/2 Ml Vial IV 20 mg HS [facility] Administration Protocol Formoterol Fumarate 20 mcg 05/10/25 08:00 05/10/25 06:08 Formoterol Fumarate 20 Mcg/2 Ml Nebu INHALATION 20 mcg RT-BID [facility] Administration Furosemide 40 mg 05/10/25 09:00 Furosemide 10 Mg/Ml 4 Ml Vial IV Q12HR [facility] Heparin Sodium (Porcine) 5,000 unit 05/10/25 00:00 05/10/25 07:55 Heparin Sodium,Porcine 5,000 Unit/Ml 1 Ml Vial SQ Not Given Q8HR [facility] Heparin Sodium (Porcine) 0 unit 05/10/25 08:00 05/10/25 08:07 Heparin Sodium 1,000 Un/Ml (10ml Vl) IV 3,350 unit PER PROTOCOL PRN Administration Low PTT Protocol Acetaminophen 1,000 mg/ IV 100 mls @ 400 mls/hr 05/09/25 18:19 Solution IVPB 05/12/25 18:18 ONCE PRN Fever Diltiazem HCl 125 mg/ Dextrose 125 mls @ 5 mls/hr 05/09/25 18:45 05/09/25 22:32 /Water IV 5 mg/hr .Q24H [facility] 5 mls/hr Titration Protocol 5 MG/HR Heparin Sodium/Sodium Chloride 250 mls @ 8.165 mls/hr 05/09/25 18:45 05/10/25 07:51 25,000 unit/ Sodium Chloride IV 15 units/kg/hr .Q24H [facility] 10.206 mls/hr Titration Protocol 12 UNITS/KG/HR Azithromycin 500 mg/ Sodium 250 mls @ 250 mls/hr 05/10/25 21:00 Chloride IVPB 05/12/25 21:59 Q24H [facility] Protocol Ceftriaxone Sodium 1 gm/ 50 mls @ 100 mls/hr 05/10/25 21:00 Sodium Chloride IVPB Q24H [facility] Protocol Sodium Chloride 1,000 mls @ 50 mls/hr 05/10/25 02:00 05/10/25 02:48 Saline 0.9% IV 50 mls/hr .Q20H [facility] Administration Lorazepam 1 mg 05/09/25 20:15 Lorazepam 1 Mg/0.5 Ml Vial IV Q1HR PRN CIWA 10 to 15 Lorazepam 1 mg 05/09/25 20:15 Lorazepam 1 Mg/0.5 Ml Vial IV Q2HR PRN CIWA 8 or 9 Lorazepam 2 mg 05/09/25 20:15 Lorazepam 1 Mg/0.5 Ml Vial IV 05/11/25 20:16 Q10M PRN CIWA 16 or higher Methylprednisolone Sodium Succinate 60 mg 05/10/25 06:00 05/10/25 06:46 Methylprednisolone Sod Succi 125 Mg/2 Ml Vial IV 60 mg Q6HR [facility] Administration Miscellaneous Information 1 each 05/09/25 18:46 Potassium Replacement Protocol 1 Each Misc MISCELLANE DAILY PRN Per Protocol Miscellaneous Information 1 each 05/09/25 18:46 Magnesium Replacement Protocol 1 Each Misc MISCELLANE DAILY PRN Per Protocol Protocol Naloxone HCl 0.2 mg 05/09/25 18:19 Naloxone 0.4 Mg/Ml 1 Ml Vial IV Q2M PRN Opioid Reversal Thiamine HCl 100 mg 05/10/25 09:00 Thiamine 100 Mg Tab PO DAILY [facility] Intake and Output 05/09/25 05/10/25 05/10/25 22:59 06:59 14:59 Intake Total 31.584 250 154.512 Output Total 800 1400 250 Balance -768.416 -1150 -95.488 Intake: Intake, IV Titration 31.584 250 154.512 Amount Diltiazem 125 mg In 31.584 Dextrose 5% in Water 100 ml @ 5 MG/HR 5 mls/hr IV .Q24H [facility] Rx#:[id number] Heparin Sod,Pork in 0.45% 104.512 NaCl 25,000 unit In 0.45 % NaCl 1 250ml.bag @ 12 UNITS/KG/HR 8.165 mls/hr IV .Q24H [facility] Rx#: [id number] Sodium Chloride 0.9% 1, 250 50 000 ml @ 50 mls/hr IV . Q20H [facility] Rx#:[id number] Output: Urine 800 1400 250 Other: Voiding Method External Catheter External Catheter Weight 67.4 kg 67.4 kg 05/10/25 06:31 05/10/25 06:31
[2025-05-10] MEDS: THIAMINE 100 MG TAB PO SCH (09:57)
[2025-05-10] MEDS: FUROSEMIDE 10 MG/ML 4 ML VIAL IV SCH (09:58)
--- NOTE | 2025-05-10 11:09 | CA ---
Transthoracic Echo Report Name: Taz Vega Age: 64 Gender: M : 1960 Exam Date: 05/10/2025 08:35 Exam Location: [facility] Ht (in): 66 Wt (lb): 150 Ordering Physician: Gordy Galeano Attending/Referring Phys: Clinic Office Coordinator Lulu Vázquez RDCS Procedure CPT: Indications: evaluate LV function Cardiac Hx: Technical Quality: Good Contrast 1: Total Dose (mL): Contrast 2: Total Dose (mL): MEASUREMENTS (Male / Female) Normal Values 2D ECHO LV Diastolic Diameter PLAX 5.3 cm 4.2 - 5.9 / 3.9 - 5.3 cm LV Systolic Diameter PLAX 3.6 cm IVS Diastolic Thickness 1.1 cm 0.6 - 1.0 / 0.6 - 0.9 cm LVPW Diastolic Thickness 1.1 cm 0.6 - 1.0 / 0.6 - 0.9 cm LV Relative Wall Thickness 0.4 RV Internal Dim ED PLAX 2.7 cm LVOT Diameter 2.4 cm LA Systolic Diameter LX 4.3 cm 3.0 - 4.0 / 2.7 - 3.8 cm LV Diastolic Volume MOD BP 100.8 cm??? 67 - 155 / 56 - 104 cm??? LV Systolic Volume MOD BP 34.6 cm??? 22 - 58 / 19 - 49 cm??? LV Ejection Fraction MOD BP 65.7 % >= 55 % LV Cardiac Index MOD BP 2852.4 cm???/min???m??? LV Diastolic Volume MOD 4C 101.8 cm??? LV Systolic Volume MOD 4C 33.5 cm??? LV Ejection Fraction MOD 4C 67.1 % LV Cardiac Index MOD 4C 2942.1 cm???/min???m??? LV Diastolic Length 4C 9.0 cm LV Systolic Length 4C 7.5 cm LV Diastolic Volume MOD 2C 96.5 cm??? LV Systolic Volume MOD 2C 35.7 cm??? LV Ejection Fraction MOD 2C 63.0 % LV Cardiac Index MOD 2C 2618.6 cm???/min???m??? LV Diastolic Length 2C 8.6 cm LV Systolic Length 2C 7.6 cm LA Volume 74.8 cm??? 18 - 58 / 22 - 52 cm??? LA Volume Index 41.8 cm???/m??? 16 - 28 cm???/m??? M-MODE Aortic Root Diameter MM 4.3 cm LA Systolic Diameter MM 3.7 cm LA Ao Ratio MM 0.9 AV Cusp Separation MM 2.8 cm DOPPLER MV Area PHT 2.5 cm??? Mitral E Point Velocity 68.6 cm/s Mitral A Point Velocity 61.9 cm/s Mitral E to A Ratio 1.1 MV Deceleration Time 301.6 ms TR Peak Velocity 263.4 cm/s TR Peak Gradient 27.7 mmHg Right Ventricular Systolic Press 37.7 mmHg FINDINGS Left Ventricle Left ventricular ejection fraction is estimated at 55-60%. Mildly increased septal wall thickness. Normal left ventricular systolic function with no obvious regional wall motion abnormalities. Left ventricular cavity size normal. Right Ventricle Mild right ventricular dilatation. Mild pulmonary hypertension. Right Atrium Moderate right atrial dilatation. Left Atrium Mildly increased left atrial diameter. Moderately increased left atrial volume. Mitral Valve Mitral valve thickened. Trace to mild mitral regurgitation. No mitral stenosis. Aortic Valve Trileaflet aortic valve. No aortic stenosis. No aortic regurgitation. Tricuspid Valve Structurally normal tricuspid valve. Mild tricuspid regurgitation. No tricuspid stenosis. Pulmonic Valve Structurally normal pulmonic valve. Trace pulmonic regurgitation. No pulmonic stenosis. Pericardium No pericardial or pleural effusion. Aorta Moderate aortic dilatation at the level of the sinuses of valsalva (root) 4.3cm CONCLUSIONS Normal LV size and systolic function. Mildly enlarged atria. Mild mitral and tricuspid regurgitation. No pericardial effusion mildly elevated PA pressures. Previewed by: Dr. Bala Samuels MD (Electronically Signed) Final Date: 10 May 2025 11:08
[2025-05-10] MEDS ORDERED: MAGNESIUM SULFATE-D5W PMX 1 GM in DEXTROSE/WATER 1 100ML.BAG IVPB SCH (11:30)
[2025-05-10] MEDS: MAGNESIUM SULFATE-WATER PMX 4 GM in WATER FOR INJECTION 1 100ML.BAG IVPB ONE (11:55)
[2025-05-10 12:02] LABS: Glucose,Whole Blood 147 mg/dL (70-110)
[2025-05-10] MEDS: DEXMEDETOMIDINE/0.9% NACL(PMX) 400 MCG in EMPTY BAG 1 BAG IV SCH (12:05)
--- NOTE | 2025-05-10 12:18 | P.NPCON ---
History of Present Illness - Reason for Consult acute renal failure - History of Present Illness Patient is a 64-year-old male with history of COPD, DVT/PE and alcohol abuse. He is admitted to the hospital with confusion and weakness. Patient was hypoxic and barely responsive when EMS arrived. He was placed on BiPAP. Patient was also found to have A-fib with RVR and was maintained on Cardizem drip. 1 reading of low blood pressure documented at 97/63 Serum creatinine was 1.8 on admission and decreased to 1.37 today. Previous creatinine 0.7 on 06/11/2024. Chest x-ray shows pulmonary vascular congestion with possible left lower lung pneumonia. Currently maintained on IV Lasix and IV fluids at 50 cc an hour. Patient was placed on BiPAP this morning. He had been quite agitated. Patient has an external catheter with 24-hour urine output documented at 2.2 L. Past Medical History Past Medical History: COPD, Diabetes Mellitus, Deep Vein Thrombosis (DVT), Hypertension, Musculoskeletal Disorder, Pneumonia, Pulmonary Embolus (PE) Additional Past Medical History / Comment(s): "broken back 01/06/19", "heart arrhythmia's," DVT right leg, PE History of Any Multi-Drug Resistant Organisms: None Reported Past Surgical History: Orthopedic Surgery Additional Past Surgical History / Comment(s): left clavicle, jaw, lt leg Past Anesthesia/Blood Transfusion Reactions: No Reported Reaction Past Psychological History: Anxiety, Depression, Schizophrenia Smoking Status: Former smoker Past Alcohol Use History: None Reported, Abuse, Daily, Heavy Past Drug Use History: None Reported - Past Family History Sister(s) Family Medical History: Cancer Additional Family Medical History / Comment(s): 2 sisters from cancer Mother Family Medical History: Coronary Artery Disease (CAD) Father Additional Family Medical History / Comment(s): Alcoholic Medications and Allergies Home Medications Medication Instructions Recorded Confirmed Type Albuterol Inhaler [Ventolin Hfa 2 puff INHALATION RT-Q6H PRN 05/09/25 05/09/25 History Inhaler] Albuterol Nebulized [Ventolin 2.5 mg INHALATION RT-QID PRN 05/09/25 05/09/25 History Nebulized] Budesonide-Formot 160-4.5 Mcg 2 puff INHALATION RT-BID 05/09/25 05/09/25 History [Symbicort 160-4.5 Mcg Inhaler] Buprenorphine HCl/Naloxone HCl 1 film SL BID 05/09/25 05/09/25 History [Suboxone 8 mg-2 mg Sl Film] Furosemide [Lasix] 80 mg PO DAILY 05/09/25 05/09/25 History Meloxicam [Mobic] 15 mg PO DAILY 05/09/25 05/09/25 History Multivitamins, Thera [Multivitamin 1 tab PO DAILY 05/09/25 05/09/25 History (formulary)] Mupirocin 2% Oint [Bactroban 2% 1 applic TOPICAL TID 05/09/25 05/09/25 History Oint] Nicotine 21Mg/24Hr Patch [Habitrol] 1 patch TRANSDERM DAILY PRN 05/09/25 05/09/25 History Allergies Allergy/AdvReac Type Severity Reaction Status Date / Time No Known Allergies Allergy Verified 05/09/25 18:47 Physical Exam Vitals: Vital Signs Temp Pulse Resp BP Pulse Ox FiO2 05/10/25 10:57 60 05/10/25 07:00 82 25 H 109/67 95 05/10/25 06:29 85 05/10/25 06:19 79 05/10/25 06:18 79 05/10/25 06:08 80 60 05/10/25 06:00 80 13 121/69 95 05/10/25 05:00 78 13 118/72 94 L 60 05/10/25 04:01 60 05/10/25 04:00 97.8 F 77 12 106/67 96 60 05/10/25 03:00 73 13 100/62 95 05/10/25 02:00 75 15 100/72 94 L 05/10/25 01:00 75 17 103/66 94 L 05/10/25 00:00 98 F 73 15 108/93 96 70 05/09/25 23:52 78 15 108/93 93 L 05/09/25 23:00 67 13 97/63 97 05/09/25 22:00 66 17 101/63 95 05/09/25 21:00 124 H 15 114/93 96 80 05/09/25 20:09 126 H 05/09/25 20:00 97.9 F 142 H 9 L 103/82 98 80 05/09/25 19:57 122 H 80 05/09/25 19:53 144 H 12 118/103 92 L 100 05/09/25 19:06 135 H 20 140/90 99 05/09/25 17:30 100 18 140/87 99 05/09/25 17:22 180 H 20 140/83 99 05/09/25 16:54 98.6 F 102 H 20 128/90 91 L 05/09/25 16:53 100 Intake and Output 05/09/25 05/10/25 05/10/25 22:59 06:59 14:59 Intake Total 31.584 250 221.762 Output Total 800 1400 250 Balance -768.416 -1150 -28.238 Intake: Intake, IV Titration 31.584 250 221.762 Amount Diltiazem 125 mg In 31.584 67.250 Dextrose 5% in Water 100 ml @ 5 MG/HR 5 mls/hr IV .Q24H [facility] Rx#:[id number] Heparin Sod,Pork in 0.45% 104.512 NaCl 25,000 unit In 0.45 % NaCl 1 250ml.bag @ 12 UNITS/KG/HR 8.165 mls/hr IV .Q24H [facility] Rx#: [id number] Sodium Chloride 0.9% 1, 250 50 000 ml @ 50 mls/hr IV . Q20H [facility] Rx#:[id number] Output: Urine 800 1400 250 Other: Voiding Method External Catheter External Catheter Weight 67.4 kg 67.4 kg Patient is sleeping, currently on BiPAP No acute distress Examination of the heart S1 and S2 Examination of the lungs bilateral breath sounds are heard Abdomen is soft nontender Examination of lower extremities shows edema 1+ Results - Lab Results Most recent lab results ABG pH 7.31 (7.35-7.45) L 05/09/25 19:43 ABG pCO2 74 mmHg (35-45) H* 05/09/25 19:43 ABG pO2 153 mmHg (83-108) H 05/09/25 19:43 ABG HCO3 37 mmol/L (21-25) H 05/09/25 19:43 ABG O2 Saturation 99.3 % (94-97) H 05/09/25 19:43 Calcium 7.7 mg/dL (8.4-10.2) L 05/10/25 06:31 05/10/25 06:31 05/10/25 06:31 Assessment and Plan Assessment: 1. Acute kidney injury, ATN, cardiorenal nonoliguric. Improved. Check UA 2. Acute hypoxic respiratory failure secondary to CHF and COPD exacerbation 3. Volume overload 4. Metabolic alkalosis secondary to diuresis and compensation for respiratory acidosis Plan: DC IV fluids Continue with Lasix Repeat labs in a.m. Check UA Thank you for the consultation. We will continue to follow the patient with you during his hospitalization.
[2025-05-10] MEDS: DEXTROSE 5% IN WATER 100 ML with AMIODARONE 150 MG IV ONE (15:51)
[2025-05-10 18:05] LABS: Glucose,Whole Blood 175 mg/dL (70-110)
[2025-05-10 18:16] LABS: Bilirubin,Urine Negative (Negative); Blood,Urine Negative (Negative); Color,Urine Light Yellow; Glucose,Urine (UA) Negative (Negative); Ketones,Urine Negative (Negative); Leukocyte Esterase,Urine Negative (Negative); Nitrite,Urine Negative (Negative); PH, Urine 5.0 (5.0-8.0); Protein,Urine Negative (Negative); Specific Gravity,Urine 1.013 (1.001-1.035); Urobilinogen,Urine <2.0 mg/dL (<2.0)
[2025-05-10] MEDS ORDERED: SYMBICORT 160-4.5 MCG INHALER INHALATION SCH (20:00)
[2025-05-10] MEDS: AZITHROMYCIN 500 MG in SODIUM CHLORIDE 0.9% 250 ML IVPB SCH (20:53)
[2025-05-10] MEDS: PATIENT'S OWN (Buprenorphine Hcl/Naloxone Hcl [Suboxone 8 Mg-2 Mg Sl Film] 1 EACH Fil SUBLINGUAL SCH (21:07)
[2025-05-11 01:21] LABS: Glucose,Whole Blood 169 mg/dL (70-110)
[2025-05-11 07:08] LABS: Basophils # (A) 0.02 10*3/uL (0.00-0.10); Basophils % (A) 0.1 %; Eosinophils # (A) 0.00 10*3/uL (0.04-0.35); Eosinophils % (A) 0.0 %; HCT 47.1 % (39.6-50.0); HGB 14.7 g/dL (13.0-17.0); Lymphocytes # (A) 0.51 10*3/uL (0.90-5.00); Lymphocytes % (A) 3.3 %; MCH 30.8 pg (27.0-32.0); MCHC 31.2 g/dL (32.0-37.0); MCV 98.5 fL (80.0-97.0); Monocytes # (A) 0.53 10*3/uL (0.20-1.00); Monocytes % (A) 3.4 %; Neutrophils # (A) 14.32 10*3/uL (1.80-7.70); Neutrophils % (A) 92.9 %; Platelet Count 242 10*3/uL (140-440); RBC 4.78 10*6/uL (4.40-5.60); RDW 13.6 % (11.5-14.5); WBC 15.43 10*3/uL (4.50-10.00)
[2025-05-11 07:27] LABS: African American GFR (CKD) 82 (>60 ml/min/1.73 sqM); Blood Urea Nitrogen 58 mg/dL (9-20); Calcium 8.1 mg/dL (8.4-10.2); Chloride 91 mmol/L (98-107); Glucose 190 mg/dL (74-99); Magnesium 2.4 mg/dL (1.6-2.3); Non-African American GFR(CKD) 71 (>60 ml/min/1.73 sqM); Potassium 4.0 mmol/L (3.5-5.1); Sodium 142 mmol/L (137-145)
[2025-05-11 07:34] LABS: Anion Gap 5 mmol/L
[2025-05-11 07:37] LABS: Carbon Dioxide 46 mmol/L (22-30)
--- NOTE | 2025-05-11 08:10 | XR ---
EXAMINATION TYPE: XR chest 1V DATE OF EXAM: 05/11/2025 COMPARISON: 05/10/2025 CLINICAL INDICATION: Male, 64 years old with history of Pulmonary Edema; TECHNIQUE: Single frontal view of the chest is obtained. FINDINGS: Heart mildly enlarged. Hyperinflation. Interstitial density persists. Left-sided rib fract ure deformities. Plate and screw fixation left clavicular shaft. Left base is underpenetrated and not well assessed. IMPRESSION: COPD with suspected ongoing mild CHF with pulmonary vascular congestion. Left base under penetrated and not well assessed. [facility], , 05/11/2025 8:07 AM
[2025-05-11] MEDS: FAMOTIDINE 20 MG/2 ML VIAL IV SCH (09:16)
[2025-05-11] MEDS: METOPROLOL TARTRATE 25 MG TAB PO SCH (09:56)
[2025-05-11] MEDS: APIXABAN 5 MG TAB PO SCH (09:56)
[2025-05-11 11:48] LABS: Glucose,Whole Blood 219 mg/dL (70-110)
--- NOTE | 2025-05-11 11:52 | P.PN ---
Subjective Patient is seen for follow-up for acute kidney injury and volume overload. Respiratory status has improved. Currently off of BiPAP. Maintained on IV Cardizem. Status post IV Lasix. Currently off of IV fluids as well. Serum creatinine down to 1.1 Objective - Vital Signs Vital signs: Vital Signs Temp 97.8 F 05/11/25 08:00 Pulse 86 05/11/25 11:48 Resp 13 05/11/25 10:00 BP 118/82 05/11/25 10:00 Pulse Ox 92 L 05/11/25 10:00 FiO2 50 05/11/25 04:04 Intake & Output 05/10/25 05/11/25 05/11/25 18:59 06:59 18:59 Intake Total 342.371 3644.998 640 Output Total 1010 400 700 Balance -133.478 0807.998 -60 Weight 67.6 kg Intake: IV 30 0.9NS 30 Intake, IV Titration 878.196 784.998 10 Amount Azithromycin 500 mg In 250 Sodium Chloride 0.9% 250 ml @ 250 mls/hr IVPB Q24H [facility] Rx#:[id number] Dextrose 5% in Water 100 100 ml @ 100 mls/hr IV .Q1H2M ONE with Amiodarone 150 mg Rx#:[id number] Diltiazem 125 mg In 88.500 248.5 Dextrose 5% in Water 100 ml @ 5 MG/HR 5 mls/hr IV .Q24H [facility] Rx#:[id number] Heparin Sod,Pork in 0.45% 179.696 86.498 NaCl 25,000 unit In 0.45 % NaCl 1 250ml.bag @ 12 UNITS/KG/HR 8.165 mls/hr IV .Q24H [facility] Rx#: [id number] Magnesium Sulfate-Water 100 Pmx 4 gm In Water For Injection 1 100ml.bag @ 100 mls/hr IVPB ONCE ONE Rx#:[id number] Sodium Chloride 0.9% 1, 410 100 10 000 ml @ 50 mls/hr IV . Q20H [facility] Rx#:[id number] cefTRIAXone 1 gm In 100 Sodium Chloride 0.9% 50 ml @ 100 mls/hr IVPB Q24H [facility] Rx#:[id number] Oral 480 Tube Feeding 240 600 Output: Urine 1010 400 700 Other: Voiding Method External Catheter External Catheter External Catheter # Voids 1 # Bowel Movements 1 - Exam Patient is awake, comfortable, no acute distress Examination of the heart S1 and S2 Examination of the lungs decreased breath sounds at the bases Abdomen is soft nontender Examination of lower extremities shows chronic skin changes, edema 1+ - Labs CBC & Chem 7: 05/11/25 06:47 05/11/25 06:47 Labs: Abnormal Lab Results - Last 24 Hours (Table) 05/10/25 05/10/25 05/10/25 Range/Units 12:01 14:38 18:03 WBC (4.50-10.00) 10*3/uL MCV (80.0-97.0) fL MCHC (32.0-37.0) g/dL Immature Gran # (0.00-0.04) 10*3/uL Neutrophils # (1.80-7.70) 10*3/uL Lymphocytes # (0.90-5.00) 10*3/uL Eosinophils # (0.04-0.35) 10*3/uL APTT 37.5 H (22.0-30.0) sec Chloride (98-107) mmol/L Carbon Dioxide (22-30) mmol/L BUN (9-20) mg/dL Glucose (74-99) mg/dL POC Glucose (mg/dL) 147 H 175 H (70-110) mg/dL Calcium (8.4-10.2) mg/dL Magnesium (1.6-2.3) mg/dL 05/10/25 05/11/25 05/11/25 Range/Units 21:27 01:19 06:47 WBC 15.43 H (4.50-10.00) 10*3/uL MCV 98.5 H (80.0-97.0) fL MCHC 31.2 L (32.0-37.0) g/dL Immature Gran # 0.05 H (0.00-0.04) 10*3/uL Neutrophils # 14.32 H (1.80-7.70) 10*3/uL Lymphocytes # 0.51 L (0.90-5.00) 10*3/uL Eosinophils # 0.00 L (0.04-0.35) 10*3/uL APTT 37.6 H (22.0-30.0) sec Chloride (98-107) mmol/L Carbon Dioxide (22-30) mmol/L BUN (9-20) mg/dL Glucose (74-99) mg/dL POC Glucose (mg/dL) 169 H (70-110) mg/dL Calcium (8.4-10.2) mg/dL Magnesium (1.6-2.3) mg/dL 05/11/25 05/11/25 05/11/25 Range/Units 06:47 06:47 11:46 WBC (4.50-10.00) 10*3/uL MCV (80.0-97.0) fL MCHC (32.0-37.0) g/dL Immature Gran # (0.00-0.04) 10*3/uL Neutrophils # (1.80-7.70) 10*3/uL Lymphocytes # (0.90-5.00) 10*3/uL Eosinophils # (0.04-0.35) 10*3/uL APTT 43.2 H (22.0-30.0) sec Chloride 91 L (98-107) mmol/L Carbon Dioxide 46 H* (22-30) mmol/L BUN 58 H (9-20) mg/dL Glucose 190 H (74-99) mg/dL POC Glucose (mg/dL) 219 H (70-110) mg/dL Calcium 8.1 L (8.4-10.2) mg/dL Magnesium 2.4 H (1.6-2.3) mg/dL Microbiology - Last 24 Hours (Table) 05/09/25 17:01 Blood Culture Gram Stain - Preliminary Blood Blood Culture - Preliminary Molecular ID Assessment and Plan Assessment: 1. Acute kidney injury, ATN, cardiorenal nonoliguric. Improved. UA is benign 2. Acute hypoxic respiratory failure secondary to CHF and COPD exacerbation 3. Volume overload 4. Metabolic alkalosis secondary to diuresis and compensation for respiratory acidosis Plan: May continue off of diuretics and IV fluids Repeat labs in a.m.
[2025-05-11] MEDS ORDERED: DEXTROSE 50% SYRINGE 50 ML IVP PRN ×2 (11:53)
[2025-05-11] MEDS: INSULIN LISPRO (HumaLOG) 100 UNIT/ML 10 mL VL SQ SCH (12:15)
[2025-05-11] MEDS: LORazepam 1 MG/0.5 ML VIAL IV PRN (12:44)
--- NOTE | 2025-05-11 14:38 | P.PN ---
Subjective Progress Note Date: 05/11/25 The patient is a 64-year-old male who was brought to the emergency room for mental status changes. 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 Patient converted to atrial fibrillation thereafter. After starting on Cardizem drip he was in sinus rhythm for approximately 12 hours, but returned to atrial fibrillation yesterday. He is currently on Cardizem at 15 mg, as well as a heparin drip. Patient has been weaned off of BiPAP and is currently on nasal cannula. He continues to be lethargic, but does awaken to physical stimuli. He remains n.p.o. GENERAL: Well-appearing, well-nourished and in no acute distress. NECK: Supple without JVD or thyromegaly. LUNGS: Breath sounds diminished to auscultation bilaterally. Respiration equal and unlabored. No wheezes, rales or rhonchi. HEART: Irregular rate and rhythm without murmurs, rubs or gallops. S1 and S2 heard. EXTREMITIES: Normal range of motion, no edema. No clubbing or cyanosis. Peripheral pulses intact and strong. TELEMETRY: Atrial fibrillation with heart rates in the 90s overnight LABS: WBC 15.43, hemoglobin 14.7, hematocrit 4 7.1, platelet 242, sodium 142, potassium 4.0, BUN 58, creatinine 1.11 IMPRESSION: Mental status changes AVNRT, s/p adenosine A-fib with RVR Congestive heart failure Elevated D-dimer Transaminitis Chronic obstructive pulmonary disease History of EtOH abuse History of polysubstance abuse Chronic tobacco use History of pulmonary emboli and DVT PLAN: Transition to oral calcium channel chun when able to tolerate oral medications Patient is a poor candidate for long-term anticoagulation due to alcoholism and homelessness Aggressive pulmonary hygiene Further recommendations to be based on clinical course I am dictating on behalf of Dr Nikolai Templeton's history/physical and assessment/plan. Objective - Vital Signs Vital signs: Vital Signs Temp 97.8 F 05/11/25 12:00 Pulse 68 05/11/25 14:00 Resp 11 L 05/11/25 14:00 BP 101/66 05/11/25 14:00 Pulse Ox 93 L 05/11/25 14:00 FiO2 70 05/11/25 12:50 Intake & Output 05/10/25 05/11/25 05/11/25 18:59 06:59 18:59 Intake Total 171.236 6319.998 1804.250 Output Total 1010 400 800 Balance -116.908 5353.998 1004.250 Weight 67.6 kg Intake: IV 70 0.9NS 70 Intake, IV Titration 878.196 784.998 134.250 Amount Azithromycin 500 mg In 250 Sodium Chloride 0.9% 250 ml @ 250 mls/hr IVPB Q24H [facility] Rx#:[id number] Dextrose 5% in Water 100 100 ml @ 100 mls/hr IV .Q1H2M ONE with Amiodarone 150 mg Rx#:[id number] Diltiazem 125 mg In 88.500 248.5 124.250 Dextrose 5% in Water 100 ml @ 5 MG/HR 5 mls/hr IV .Q24H [facility] Rx#:[id number] Heparin Sod,Pork in 0.45% 179.696 86.498 NaCl 25,000 unit In 0.45 % NaCl 1 250ml.bag @ 12 UNITS/KG/HR 8.165 mls/hr IV .Q24H [facility] Rx#: [id number] Magnesium Sulfate-Water 100 Pmx 4 gm In Water For Injection 1 100ml.bag @ 100 mls/hr IVPB ONCE ONE Rx#:[id number] Sodium Chloride 0.9% 1, 410 100 10 000 ml @ 50 mls/hr IV . Q20H [facility] Rx#:[id number] cefTRIAXone 1 gm In 100 Sodium Chloride 0.9% 50 ml @ 100 mls/hr IVPB Q24H [facility] Rx#:[id number] Oral 480 Tube Feeding 240 1600 Output: Urine 1010 400 800 Other: Voiding Method External Catheter External Catheter External Catheter # Voids 1 # Bowel Movements 1 - Labs CBC & Chem 7: 05/11/25 06:47 05/11/25 06:47 Labs: Abnormal Lab Results - Last 24 Hours (Table) 05/10/25 05/10/25 05/10/25 Range/Units 14:38 18:03 21:27 WBC (4.50-10.00) 10*3/uL MCV (80.0-97.0) fL MCHC (32.0-37.0) g/dL Immature Gran # (0.00-0.04) 10*3/uL Neutrophils # (1.80-7.70) 10*3/uL Lymphocytes # (0.90-5.00) 10*3/uL Eosinophils # (0.04-0.35) 10*3/uL APTT 37.5 H 37.6 H (22.0-30.0) sec Chloride (98-107) mmol/L Carbon Dioxide (22-30) mmol/L BUN (9-20) mg/dL Glucose (74-99) mg/dL POC Glucose (mg/dL) 175 H (70-110) mg/dL Calcium (8.4-10.2) mg/dL Magnesium (1.6-2.3) mg/dL 05/11/25 05/11/25 05/11/25 Range/Units 01:19 06:47 06:47 WBC 15.43 H (4.50-10.00) 10*3/uL MCV 98.5 H (80.0-97.0) fL MCHC 31.2 L (32.0-37.0) g/dL Immature Gran # 0.05 H (0.00-0.04) 10*3/uL Neutrophils # 14.32 H (1.80-7.70) 10*3/uL Lymphocytes # 0.51 L (0.90-5.00) 10*3/uL Eosinophils # 0.00 L (0.04-0.35) 10*3/uL APTT (22.0-30.0) sec Chloride 91 L (98-107) mmol/L Carbon Dioxide 46 H* (22-30) mmol/L BUN 58 H (9-20) mg/dL Glucose 190 H (74-99) mg/dL POC Glucose (mg/dL) 169 H (70-110) mg/dL Calcium 8.1 L (8.4-10.2) mg/dL Magnesium 2.4 H (1.6-2.3) mg/dL 05/11/25 05/11/25 Range/Units 06:47 11:46 WBC (4.50-10.00) 10*3/uL MCV (80.0-97.0) fL MCHC (32.0-37.0) g/dL Immature Gran # (0.00-0.04) 10*3/uL Neutrophils # (1.80-7.70) 10*3/uL Lymphocytes # (0.90-5.00) 10*3/uL Eosinophils # (0.04-0.35) 10*3/uL APTT 43.2 H (22.0-30.0) sec Chloride (98-107) mmol/L Carbon Dioxide (22-30) mmol/L BUN (9-20) mg/dL Glucose (74-99) mg/dL POC Glucose (mg/dL) 219 H (70-110) mg/dL Calcium (8.4-10.2) mg/dL Magnesium (1.6-2.3) mg/dL Microbiology - Last 24 Hours (Table) 05/09/25 17:01 Blood Culture Gram Stain - Preliminary Blood Blood Culture - Preliminary Molecular ID
[2025-05-11 16:00] LABS: Glucose,Whole Blood 255 mg/dL (70-110)
--- NOTE | 2025-05-11 16:44 | P.PN ---
Subjective Progress Note Date: 05/11/25 Patient is a 64-year-old male with past medical history significant for COPD, DVT/PE, loculated left-sided pleural effusion, alcohol abuse, polysubstance abuse. Patient brought in by EMS yesterday evening. Reportedly, the patient is homeless. He was at a friend's house the previous day and noted to be increasingly confused and lethargic. When EMS arrived the patient's pulse ox was reportedly 59%. He was barely responsive, requiring BVM ventilation. The patient was not intubated. Transitioned to BiPAP on arrival. Found to be in SVT, given IV push adenosine 6 mg and then 12 mg which reportedly terminated the arrhythmia. Later, the patient went into atrial fibrillation with RVR. He was given a Cardizem IV bolus and placed on a Cardizem infusion. Further workup including a chest x-ray showing cardiomegaly, pulmonary vascular congestion, and possible small left pleural effusion. He was given 80 mg of total IV Lasix in the ED. Labs including a CBC with a WBC count of 22.4, hemoglobin 15.2, platelets 244. CMP with a sodium of 141, potassium 5.5, chloride 94, serum bicarb 39, BUN 48, creatinine 1.85, glucose 119. Lactic 2.1. AST 1503, ALT 1178, ALP 129. Troponin 0[place]12[place] [address]. D-dimer also was elevated has 7.3. Patient was previously systemically heparinized for the atrial fibrillation. Ultrasound of abdomen remarkable for dilated CBD measuring up to 7 mm in diameter. No evidence of obstructing stone. Patient is now being evaluated in intensive care unit. He remains on BiPAP with current settings 10/23 and FiO2 of 80%. He does wake up to verbal stimuli and has sustained awakening. BiPAP does make it difficult to communicate. Follow-up ABG with some improvement, done on FiO2 of 100% with a PaO2 of 153, pCO2 of 74, pH of 7.31. He does have lower extremity edema. He has an external urinary catheter, and there is 650 cc of urine collected. Continues on Cardizem at 10 mg/h. Also, systemically heparinized. Current rhythm appears to be normal sinus in the mid 70s beats per minute. Blood pressure is normotensive. He was previously empir ically covered on azithromycin and Rocephin. Afebrile. On 05/11/2025, the patient is being seen for a follow-up. On today's evaluation, the patient denies having any significant shortness of breath. He is currently on oxygen 6 L/min nasal cannula and BiPAP has been discontinued. IV fluids are currently at KVO. He is slightly delusional and he thinks that were causing more harm to his care in the ICU. He remains in atrial fibrillation. Cardizem drip is still running at 50 mg an hour and the patient remains on IV heparin. Blood cultures positive for coagulase-negative staph, likely contaminant. He seems to be less short of breath compared to yesterday. He is able to communicate. The white cell count is 15, improved compared to yesterday with hemoglobin 14.7 and a platelet count of 242. The patient's BUN is 58 with a creatinine of 1.1 and the creatinine is improved compared to yesterday. Serum bicarb is 46, sodium is 142 with a potassium level of 4 and a chloride of 91. His procalcitonin level is at 2.27. His UA was negative. A follow-up chest x- ray was done today and it shows COPD with some mild pulm vascular congestion. Left base underpenetrated and not well assessed. The patient remains on broad- spectrum antibiotics. The patient remains on a combination of Rocephin and and Zithromax. His echocardiogram was also completed and the patient has a normal ejection fraction of 55 to 60%. The patient has mild decrease in septal wall thickening, mild RV dilatation, mild PA pressures elevation. No significant valvular abnormalities. Objective - Vital Signs Vital signs: Vital Signs Temp 99.2 F 05/11/25 04:00 Pulse 109 H 05/11/25 07:00 Resp 13 05/11/25 07:00 BP 121/92 05/11/25 07:00 Pulse Ox 95 05/11/25 07:00 FiO2 50 05/11/25 04:04 Intake & Output 05/10/25 05/11/25 05/11/25 18:59 06:59 18:59 Intake Total 937.338 2089.998 10 Output Total 1010 400 500 Balance -068.005 7325.998 -490 Weight 67.6 kg Intake: Intake, IV Titration 878.196 784.998 10 Amount Azithromycin 500 mg In 250 Sodium Chloride 0.9% 250 ml @ 250 mls/hr IVPB Q24H [facility] Rx#:[id number] Dextrose 5% in Water 100 100 ml @ 100 mls/hr IV .Q1H2M ONE with Amiodarone 150 mg Rx#:[id number] Diltiazem 125 mg In 88.500 248.5 Dextrose 5% in Water 100 ml @ 5 MG/HR 5 mls/hr IV .Q24H [facility] Rx#:[id number] Heparin Sod,Pork in 0.45% 179.696 86.498 NaCl 25,000 unit In 0.45 % NaCl 1 250ml.bag @ 12 UNITS/KG/HR 8.165 mls/hr IV .Q24H [facility] Rx#: [id number] Magnesium Sulfate-Water 100 Pmx 4 gm In Water For Injection 1 100ml.bag @ 100 mls/hr IVPB ONCE ONE Rx#:[id number] Sodium Chloride 0.9% 1, 410 100 10 000 ml @ 50 mls/hr IV . Q20H [facility] Rx#:[id number] cefTRIAXone 1 gm In 100 Sodium Chloride 0.9% 50 ml @ 100 mls/hr IVPB Q24H [facility] Rx#:[id number] Oral 480 Tube Feeding 240 Output: Urine 1010 400 500 Other: Voiding Method External Catheter External Catheter # Voids 1 # Bowel Movements 1 - Exam GENERAL EXAM: 64-year-old male, with sustained awakening, on 6 L of oxygen by nasal cannula the patient was taken off the BiPAP. HEAD: Normocephalic and atraumatic EYES: Normal reaction of pupils, equal size. Anicteric sclera. NOSE: Clear with pink turbinates. THROAT: No erythema or exudates. NECK: No masses, no JVD. CHEST: No chest wall deformity. LUNGS: Equal air entry with diminished bibasilar lung sounds and minimal inspiratory crackles CVS: S1 and S2 normal with no audible murmur, irregular rhythm consistent with atrial fibrillation. No extra heart sounds ABDOMEN: No hepatosplenomegaly, active bowel sounds, no guarding or rigidity. Negative Zafar sign SPINE: Kyphoscoliosis SKIN: Bilateral venous stasis dermatitis, right anterior weeping wound with dressing CENTRAL NERVOUS SYSTEM: No focal deficits, tone is normal in all 4 extremities. EXTREMITIES: Bilateral 1+ lower extremity edema. No clubbing, or cyanosis. Peripheral pulses are intact. - Labs CBC & Chem 7: 05/11/25 06:47 05/11/25 06:47 Labs: Abnormal Lab Results - Last 24 Hours (Table) 05/10/25 05/10/25 05/10/25 Range/Units 06:31 12:01 14:38 WBC (4.50-10.00) 10*3/uL MCV (80.0-97.0) fL MCHC (32.0-37.0) g/dL Immature Gran # (0.00-0.04) 10*3/uL Neutrophils # (1.80-7.70) 10*3/uL Lymphocytes # (0.90-5.00) 10*3/uL Eosinophils # (0.04-0.35) 10*3/uL APTT 37.5 H (22.0-30.0) sec Chloride (98-107) mmol/L Carbon Dioxide (22-30) mmol/L BUN (9-20) mg/dL Glucose (74-99) mg/dL POC Glucose (mg/dL) 147 H (70-110) mg/dL Calcium (8.4-10.2) mg/dL Magnesium (1.6-2.3) mg/dL Procalcitonin 2.27 H (0.02-0.50) ng/mL 05/10/25 05/10/25 05/11/25 Range/Units 18:03 21:27 01:19 WBC (4.50-10.00) 10*3/uL MCV (80.0-97.0) fL MCHC (32.0-37.0) g/dL Immature Gran # (0.00-0.04) 10*3/uL Neutrophils # (1.80-7.70) 10*3/uL Lymphocytes # (0.90-5.00) 10*3/uL Eosinophils # (0.04-0.35) 10*3/uL APTT 37.6 H (22.0-30.0) sec Chloride (98-107) mmol/L Carbon Dioxide (22-30) mmol/L BUN (9-20) mg/dL Glucose (74-99) mg/dL POC Glucose (mg/dL) 175 H 169 H (70-110) mg/dL Calcium (8.4-10.2) mg/dL Magnesium (1.6-2.3) mg/dL Procalcitonin (0.02-0.50) ng/mL 05/11/25 05/11/25 05/11/25 Range/Units 06:47 06:47 06:47 WBC 15.43 H (4.50-10.00) 10*3/uL MCV 98.5 H (80.0-97.0) fL MCHC 31.2 L (32.0-37.0) g/dL Immature Gran # 0.05 H (0.00-0.04) 10*3/uL Neutrophils # 14.32 H (1.80-7.70) 10*3/uL Lymphocytes # 0.51 L (0.90-5.00) 10*3/uL Eosinophils # 0.00 L (0.04-0.35) 10*3/uL APTT 43.2 H (22.0-30.0) sec Chloride 91 L (98-107) mmol/L Carbon Dioxide 46 H* (22-30) mmol/L BUN 58 H (9-20) mg/dL Glucose 190 H (74-99) mg/dL POC Glucose (mg/dL) (70-110) mg/dL Calcium 8.1 L (8.4-10.2) mg/dL Magnesium 2.4 H (1.6-2.3) mg/dL Procalcitonin (0.02-0.50) ng/mL Microbiology - Last 24 Hours (Table) 05/09/25 17:01 Blood Culture Gram Stain - Preliminary Blood Blood Culture - Preliminary Molecular ID Assessment and Plan Assessment: Acute hypoxemic and hypercapnic respiratory failure, requiring BiPAP, and this is consistent with COPD exacerbation and possibly with a component of mild CHF and the patient is currently off the BiPAP and 6 L of oxygen by nasal cannula. Tachyarrhythmias, reportedly initially in SVT and given 6 mg of adenosine followed by 12 mg of adenosine which converted the patient to normal sinus rhythm followed by atrial fibrillation with RVR, patient was loaded with IV Cardizem followed by titratable infusion. Current rhythm continues to be in atrial fibrillation the patient continues to be on IV heparin and Cardizem drip at 15 mg an hour Acute leukocytosis Acute kidney injury, creatinine is improving Lactic acidemia, improving Elevated D-dimer, systemically heparinized Transaminitis, Ultrasound of abdomen remarkable for dilated CBD measuring up to 7 mm in diameter. No evidence of obstructing stone. History of DVT/PE History of loculated left-sided pleural effusion with previous pigtail catheter History of alcohol abuse history of polysubstance abuse Chronic tobacco use Kyphoscoliosis Plan: Patient is currently in 60s of oxygen by nasal cannula. Wean down FiO2 as tolerated to maintain saturation above 90%. Keep the patient off the BiPAP for now Continue DuoNebtreatments [id number] Continue IV Solu-Medrol IV fluids are currently at KVO Continue Rocephin and Zithromax monitor procalcitonin level which is essentially related Start the patient on metoprolol 25 mg p.o. twice a day Start the patient on Eliquis 5 mg p.o. twice daily regarding his atrial fibrillation Continue Cardizem drip and gradual weaning off as tolerated to maintain a heart rate of less than 100 Use Precedex should there be any delirium/agitation Echocardiogram was noted and the patient has a preserved LV function with mild pulmonary hypertension The patient is currently on Suboxone 8 mg on a daily basis. Continue Pepcid Continue the rest of the supportive care. The patient will be kept in the ICU for now. Critical care evaluation was done and 32 minutes. Time with Patient: Greater than 30
[2025-05-11 20:03] LABS: ABG PH 7.39 (7.35-7.45); ABG PO2 224 mmHg (83-108); ABG TCO2 50 mmol/L (19-24); Allen Test Performed? Yes
--- NOTE | 2025-05-11 20:30 | XR ---
EXAMINATION TYPE: XR chest 1V portable DATE OF EXAM: 05/11/2025 8:27 PM COMPARISON: Prior chest radiographs, most recently dated 05/11/2025. CLINICAL INDICATION: Male, 64 years old with history of Possible aspiration; [facility] TECHNIQUE: XR chest 1V portable Frontal view of the chest. FINDINGS: Lungs/Pleura: There is no evidence of pleural effusion, focal consolidation, or pneumothorax. Left l tramaine base underpenetrated without definite pleural effusion. Pulmonary vascularity: Unremarkable. Heart/mediastinum: Cardiomediastinal silhouette is prominent in size. Musculoskeletal: No acute osseous pathology. Previous ORIF of the left clavicle. Old left-sided rib f racture form is noted. Other findings: None IMPRESSION: No significant interval changes from prior same-day chest radiograph. [facility], , 05/11/2025 8:28 PM
[2025-05-11 21:05] LABS: Glucose,Whole Blood 121 mg/dL (70-110)
[2025-05-11 23:28] LABS: ABG HCO3 48 mmol/L (21-25); ABG PCO2 80 mmHg (35-45)
--- NOTE | 2025-05-12 02:14 | PN ---
PROGRESS NOTE DATE OF SERVICE: 05/10/2025 CHIEF COMPLAINT: Acute respiratory failure. HISTORY OF PRESENT ILLNESS: Systems improved, but he is much more awake and alert. CO2 is dropping. REVIEW OF SYSTEMS: He is very agitated about not getting food and analgesics. He may be withdrawing. PHYSICAL EXAMINATION: VITAL SIGNS: Normal. CHEST: Demonstrate poor breath sounds with increased AP diameter. He has scattered rhonchi and rales and expiratory wheezing. CARDIAC: Normal. EXTREMITIES: Cellulitis of the lower extremities has improved. IMPRESSION: 1. Acute respiratory failure. 2. Chronic obstructive pulmonary disease. 3. Cellulitis of the lower extremities. PLAN: Continue with ICU management until he is stable enough to be taken off oxygen. MMODL / IJN: [id number] /
--- NOTE | 2025-05-12 03:23 | PN ---
PROGRESS NOTE DATE OF SERVICE: 05/11/2025 CHIEF COMPLAINT: Acute respiratory failure and COPD. HISTORY OF PRESENT ILLNESS: This gentleman is doing well. He has become very agitated and demanding. PHYSICAL EXAMINATION: RESPIRATORY: Breath sounds are poor. He has increased AP diameter and dorsal kyphosis. There are scattered rales. CARDIAC: Demonstrates atrial fibrillation with tachycardia. ABDOMEN: Soft, nontender. IMPRESSION: 1. Acute respiratory failure. 2. Chronic obstructive pulmonary disease. 3. Atrial fibrillation. PLAN: Continue with pulmonary program and increase activity. He can probably be moved out of ICU. MMODL / IJN: [id number] /
[2025-05-12 06:42] LABS: Glucose,Whole Blood 138 mg/dL (70-110)
[2025-05-12 07:16] LABS: HCT 43.8 % (39.6-50.0); HGB 13.8 g/dL (13.0-17.0); MCH 30.8 pg (27.0-32.0); MCHC 31.5 g/dL (32.0-37.0); MCV 97.8 fL (80.0-97.0); Platelet Count 177 10*3/uL (140-440); RBC 4.48 10*6/uL (4.40-5.60); RDW 13.5 % (11.5-14.5); WBC 10.98 10*3/uL (4.50-10.00)
[2025-05-12 07:32] LABS: African American GFR (CKD) >90 (>60 ml/min/1.73 sqM); Anion Gap 6 mmol/L; Blood Urea Nitrogen 59 mg/dL (9-20); Calcium 8.4 mg/dL (8.4-10.2); Chloride 92 mmol/L (98-107); Glucose 139 mg/dL (74-99); Non-African American GFR(CKD) >90 (>60 ml/min/1.73 sqM); Potassium 4.2 mmol/L (3.5-5.1); Sodium 138 mmol/L (137-145)
[2025-05-12 07:51] LABS: Carbon Dioxide 40 mmol/L (22-30)
--- NOTE | 2025-05-12 08:11 | XR ---
EXAMINATION TYPE: XR chest 1V portable DATE OF EXAM: 05/12/2025 6:02 AM COMPARISON: 05/11/2025 CLINICAL INDICATION: Male, 64 years old with history of BiPAP dependent respiratory failure, , FINDINGS: Plate-screw fixation left clavicular shaft. Left-sided rib fracture deformities are demonstrated. Hea rt mildly enlarged. Hyperinflation. Some mild patchy left basilar opacities noted. Residual mild inte rstitial prominence. IMPRESSION: COPD and possible minimal residual pulmonary vascular congestion. Interstitium shows improvement from prior. Mild patchy left basilar opacity. [facility], Workstation: [facility], 05/12/2025 8:09 AM
[2025-05-12] MEDS: METOPROLOL TARTRATE 50 MG TAB PO SCH (10:21)
--- NOTE | 2025-05-12 12:13 | P.PN ---
Subjective Patient is seen for follow-up for acute kidney injury and volume overload. Respiratory status has improved. Off of BiPAP. Maintained on IV Cardizem. Status post diuresis. Serum creatinine down to 0.8 Objective - Vital Signs Vital signs: Vital Signs Temp 98.1 F 05/12/25 08:00 Pulse 131 H 05/12/25 11:00 Resp 14 05/12/25 11:00 BP 114/77 05/12/25 11:00 Pulse Ox 90 L 05/12/25 11:00 FiO2 50 05/12/25 04:50 Intake & Output 05/11/25 05/12/25 05/12/25 18:59 06:59 18:59 Intake Total 1844.250 439.25 50 Output Total 1100 900 0 Balance 744.250 -460.75 50 Weight 64.9 kg Intake: IV 110 100 50 0.9NS 110 100 50 Intake, IV Titration 134.250 339.25 Amount Azithromycin 500 mg In 250 Sodium Chloride 0.9% 250 ml @ 250 mls/hr IVPB Q24H [facility] Rx#:[id number] Diltiazem 125 mg In 124.250 39.25 Dextrose 5% in Water 100 ml @ 5 MG/HR 5 mls/hr IV .Q24H [facility] Rx#:[id number] Sodium Chloride 0.9% 1, 10 000 ml @ 50 mls/hr IV . Q20H [facility] Rx#:[id number] cefTRIAXone 1 gm In 50 Sodium Chloride 0.9% 50 ml @ 100 mls/hr IVPB Q24H [facility] Rx#:[id number] Tube Feeding 1600 Output: Urine 1100 900 0 Other: Voiding Method External Catheter External Catheter External Catheter # Voids 1 1 # Bowel Movements 1 - Exam Patient is awake, comfortable, no acute distress Examination of the heart S1 and S2 Examination of the lungs decreased breath sounds at the bases Abdomen is soft nontender Examination of lower extremities shows chronic skin changes, edema trace - Labs CBC & Chem 7: 05/12/25 06:04 05/12/25 06:04 Labs: Abnormal Lab Results - Last 24 Hours (Table) 05/11/25 05/11/25 05/11/25 Range/Units 15:59 20:01 21:04 WBC (4.50-10.00) 10*3/uL MCV (80.0-97.0) fL MCHC (32.0-37.0) g/dL ABG pCO2 80 H* (35-45) mmHg ABG pO2 224 H (83-108) mmHg ABG HCO3 48 H* (21-25) mmol/L ABG Total CO2 50 H (19-24) mmol/L ABG O2 Saturation 100.0 H (94-97) % Chloride (98-107) mmol/L Carbon Dioxide (22-30) mmol/L BUN (9-20) mg/dL Glucose (74-99) mg/dL POC Glucose (mg/dL) 255 H 121 H (70-110) mg/dL Hemoglobin A1c (<=6.0) % 05/12/25 05/12/25 05/12/25 Range/Units 06:04 06:04 06:04 WBC 10.98 H (4.50-10.00) 10*3/uL MCV 97.8 H (80.0-97.0) fL MCHC 31.5 L (32.0-37.0) g/dL ABG pCO2 (35-45) mmHg ABG pO2 (83-108) mmHg ABG HCO3 (21-25) mmol/L ABG Total CO2 (19-24) mmol/L ABG O2 Saturation (94-97) % Chloride 92 L (98-107) mmol/L Carbon Dioxide 40 H (22-30) mmol/L BUN 59 H (9-20) mg/dL Glucose 139 H (74-99) mg/dL POC Glucose (mg/dL) (70-110) mg/dL Hemoglobin A1c 6.5 H (<=6.0) % 05/12/25 Range/Units 06:40 WBC (4.50-10.00) 10*3/uL MCV (80.0-97.0) fL MCHC (32.0-37.0) g/dL ABG pCO2 (35-45) mmHg ABG pO2 (83-108) mmHg ABG HCO3 (21-25) mmol/L ABG Total CO2 (19-24) mmol/L ABG O2 Saturation (94-97) % Chloride (98-107) mmol/L Carbon Dioxide (22-30) mmol/L BUN (9-20) mg/dL Glucose (74-99) mg/dL POC Glucose (mg/dL) 138 H (70-110) mg/dL Hemoglobin A1c (<=6.0) % Microbiology - Last 24 Hours (Table) 05/09/25 17:01 Blood Culture Gram Stain - Preliminary Blood Blood Culture - Preliminary Staphylococcus hominis Molecular ID Assessment and Plan Assessment: 1. Acute kidney injury, ATN, cardiorenal nonoliguric. Improved. UA is benign 2. Acute hypoxic respiratory failure secondary to CHF and COPD exacerbation 3. Volume overload 4. Metabolic alkalosis secondary to diuresis and compensation for respiratory acidosis Plan: Continue off of diuretics and IV fluids Repeat labs in a.m.
--- NOTE | 2025-05-12 13:08 | P.PN ---
Subjective Progress Note Date: 05/12/25 The patient is a 64-year-old male who was brought to the emergency room for mental status changes. 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 Patient converted to atrial fibrillation thereafter. After starting on Cardizem drip he was in sinus rhythm for approximately 12 hours, but returned to atrial fibrillation yesterday. He is currently on Cardizem at 15 mg, as well as a heparin drip. Patient has been weaned off of BiPAP and is currently on nasal cannula. He continues to be lethargic, but does awaken to physical stimuli. according to some nursing staff he is refusing to take medications, however he has yet to complete a swallow evaluation. GENERAL: Well-appearing, well-nourished and in no acute distress. NECK: Supple without JVD or thyromegaly. LUNGS: Breath sounds diminished to auscultation bilaterally. Respiration equal and unlabored. No wheezes, rales or rhonchi. HEART: Irregular rate and rhythm without murmurs, rubs or gallops. S1 and S2 heard. EXTREMITIES: Normal range of motion, no edema. No clubbing or cyanosis. Peripheral pulses intact and strong. TELEMETRY: Atrial fibrillation with heart rates in the 90s overnight IMPRESSION: Mental status changes AVNRT, s/p adenosine A-fib with RVR Congestive heart failure Elevated D-dimer Transaminitis Chronic obstructive pulmonary disease History of EtOH abuse History of polysubstance abuse Chronic tobacco use History of pulmonary emboli and DVT PLAN: Transition to oral calcium channel chun when able to tolerate oral medications Patient is a poor candidate for long-term anticoagulation due to alcoholism and homelessness Aggressive pulmonary hygiene Avoid amiodarone with elevated liver enzymes Long-term, outpatient treatment for rate control will likely be difficult due to patient's non-compliance I am dictating on behalf of Dr Nikolai Templeton's history/physical and assessment/plan. Objective - Vital Signs Vital signs: Vital Signs Temp 98.4 F 05/12/25 12:00 Pulse 125 H 05/12/25 12:00 Resp 10 L 05/12/25 12:00 BP 101/91 05/12/25 12:00 Pulse Ox 93 L 05/12/25 12:00 FiO2 50 05/12/25 04:50 Intake & Output 05/11/25 05/12/2505/12/25 18:59 06:59 18:59 Intake Total 1844.250 439.25 60 Output Total 1100 900 0 Balance 744.250 -460.75 60 Weight 64.9 kg Intake: IV 110 100 60 0.9NS 110 100 60 Intake, IV Titration 134.250 339.25 Amount Azithromycin 500 mg In 250 Sodium Chloride 0.9% 250 ml @ 250 mls/hr IVPB Q24H [facility] Rx#:[id number] Diltiazem 125 mg In 124.250 39.25 Dextrose 5% in Water 100 ml @ 5 MG/HR 5 mls/hr IV .Q24H [facility] Rx#:[id number] Sodium Chloride 0.9% 1, 10 000 ml @ 50 mls/hr IV . Q20H [facility] Rx#:[id number] cefTRIAXone 1 gm In 50 Sodium Chloride 0.9% 50 ml @ 100 mls/hr IVPB Q24H [facility] Rx#:[id number] Tube Feeding 1600 Output: Urine 1100 900 0 Other: Voiding Method External Catheter External Catheter External Catheter # Voids 1 1 # Bowel Movements 1 - Labs CBC & Chem 7: 05/12/25 06:04 05/12/25 06:04 Labs: Abnormal Lab Results - Last 24 Hours (Table) 05/11/25 05/11/25 05/11/25 Range/Units 15:59 20:01 21:04 WBC (4.50-10.00) 10*3/uL MCV (80.0-97.0) fL MCHC (32.0-37.0) g/dL ABG pCO2 80 H* (35-45) mmHg ABG pO2 224 H (83-108) mmHg ABG HCO3 48 H* (21-25) mmol/L ABG Total CO2 50 H (19-24) mmol/L ABG O2 Saturation 100.0 H (94-97) % Chloride (98-107) mmol/L Carbon Dioxide (22-30) mmol/L BUN (9-20) mg/dL Glucose (74-99) mg/dL POC Glucose (mg/dL) 255 H 121 H (70-110) mg/dL Hemoglobin A1c (<=6.0) % 05/12/25 05/12/25 05/12/25 Range/Units 06:04 06:04 06:04 WBC 10.98 H (4.50-10.00) 10*3/uL MCV 97.8 H (80.0-97.0) fL MCHC 31.5 L (32.0-37.0) g/dL ABG pCO2 (35-45) mmHg ABG pO2 (83-108) mmHg ABG HCO3 (21-25) mmol/L ABG Total CO2 (19-24) mmol/L ABG O2 Saturation (94-97) % Chloride 92 L (98-107) mmol/L Carbon Dioxide 40 H (22-30) mmol/L BUN 59 H (9-20) mg/dL Glucose 139 H (74-99) mg/dL POC Glucose (mg/dL) (70-110) mg/dL Hemoglobin A1c 6.5 H (<=6.0) % 05/12/25 Range/Units 06:40 WBC (4.50-10.00) 10*3/uL MCV (80.0-97.0) fL MCHC (32.0-37.0) g/dL ABG pCO2 (35-45) mmHg ABG pO2 (83-108) mmHg ABG HCO3 (21-25) mmol/L ABG Total CO2 (19-24) mmol/L ABG O2 Saturation (94-97) % Chloride (98-107) mmol/L Carbon Dioxide (22-30) mmol/L BUN (9-20) mg/dL Glucose (74-99) mg/dL POC Glucose (mg/dL) 138 H (70-110) mg/dL Hemoglobin A1c (<=6.0) % Microbiology - Last 24 Hours (Table) 05/09/25 17:01 Blood Culture Gram Stain - Preliminary Blood Blood Culture - Preliminary Staphylococcus hominis Molecular ID
--- NOTE | 2025-05-12 14:59 | FL ---
Exam Date: 05/12/2025 2:43 PM. Modified barium swallow for dysphagia. Consistencies administered: Various consistency of barium. No images were sent to PACS. Please see speech pathology report. DAP: 97.15 mGym2 Gycm2 [facility], , 05/12/2025 2:57 PM
[2025-05-12 17:11] LABS: Glucose,Whole Blood 170 mg/dL (70-110)
--- NOTE | 2025-05-12 17:16 | P.PN ---
Subjective Progress Note Date: 05/12/25 Patient is a 64-year-old male with past medical history significant for COPD, DVT/PE, loculated left-sided pleural effusion, alcohol abuse, polysubstance abuse. Patient brought in by EMS yesterday evening. Reportedly, the patient is homeless. He was at a friend's house the previous day and noted to be increasingly confused and lethargic. When EMS arrived the patient's pulse ox was reportedly 59%. He was barely responsive, requiring BVM ventilation. The patient was not intubated. Transitioned to BiPAP on arrival. Found to be in SVT, given IV push adenosine 6 mg and then 12 mg which reportedly terminated the arrhythmia. Later, the patient went into atrial fibrillation with RVR. He was given a Cardizem IV bolus and placed on a Cardizem infusion. Further workup including a chest x-ray showing cardiomegaly, pulmonary vascular congestion, and possible small left pleural effusion. He was given 80 mg of total IV Lasix in the ED. Labs including a CBC with a WBC count of 22.4, hemoglobin 15.2, platelets 244. CMP with a sodium of 141, potassium 5.5, chloride 94, serum bicarb 39, BUN 48, creatinine 1.85, glucose 119. Lactic 2.1. AST 1503, ALT 1178, ALP 129. [place]roponin 0[place] [address]. D-dimer also was elevated has 7.3. Patient was previously systemically heparinized for the atrial fibrillation. Ultrasound of abdomen remarkable for dilated CBD measuring up to 7 mm in diameter. No evidence of obstructing stone. Patient is now being evaluated in intensive care unit. He remains on BiPAP with current settings 10/23 and FiO2 of 80%. He does wake up to verbal stimuli and has sustained awakening. BiPAP does make it difficult to communicate. Follow-up ABG with some improvement, done on FiO2 of 100% with a PaO2 of 153, pCO2 of 74, pH of 7.31. He does have lower extremity edema. He has an external urinary catheter, and there is 650 cc of urine collected. Continues on Cardizem at 10 mg/h. Also, systemically heparinized. Current rhythm appears to be normal sinus in the mid 70s beats per minute. Blood pressure is normotensive. He was previously empir ically covered on azithromycin and Rocephin. Afebrile. On 05/11/2025, the patient is being seen for a follow-up. On today's evaluation, the patient denies having any significant shortness of breath. He is currently on oxygen 6 L/min nasal cannula and BiPAP has been discontinued. IV fluids are currently at KVO. He is slightly delusional and he thinks that were causing more harm to his care in the ICU. He remains in atrial fibrillation. Cardizem drip is still running at 50 mg an hour and the patient remains on IV heparin. Blood cultures positive for coagulase-negative staph, likely contaminant. He seems to be less short of breath compared to yesterday. He is able to communicate. The white cell count is 15, improved compared to yesterday with hemoglobin 14.7 and a platelet count of 242. The patient's BUN is 58 with a creatinine of 1.1 and the creatinine is improved compared to yesterday. Serum bicarb is 46, sodium is 142 with a potassium level of 4 and a chloride of 91. His procalcitonin level is at 2.27. His UA was negative. A follow-up chest x- ray was done today and it shows COPD with some mild pulm vascular congestion. Left base underpenetrated and not well assessed. The patient remains on broad- spectrum antibiotics. The patient remains on a combination of Rocephin and and Zithromax. His echocardiogram was also completed and the patient has a normal ejection fraction of 55 to 60%. The patient has mild decrease in septal wall thickening, mild RV dilatation, mild PA pressures elevation. No significant valvular abnormalities. On 05/12/2025, the patient is being seen for a follow-up. The patient was having episodes of delirium and the patient was placed on Precedex and currently is off Precedex. He also experienced worsening shortness of breath and the patient was placed on BiPAP at a pressure of 12/6 with an FiO2 of 50%. Subsequently, he was taken off the BiPAP and the patient is currently on 5 L of oxygen nasal cannula. He remains atrial fibrillation. Cardizem drip is running at 2.5 mg an hour. The patient was unable to take his oral medication due to concerns of dysphagia. A modified barium swallow was also ordered. Fluid balance is +213 cc over the past 24 hours. He remains in atrial fibrillation and he does have some underlying tachycardia. The white cell count is at 10.9 with a heme of 13.8 and a platelet count of 177. Electrolytes show a sodium level of 138, bicarbonate 40, BUN 59 with a creatinine 0.8. Blood sugars at 170. The patient remains on DuoNeb updrafts. The patient remains on IV Rocephin and Zithromax. The patient remains on anticoagulation with Eliquis and the medication was going to be given to him with applesauce. He is also on Lopressor 25 mg twice a day. Remains on IV Solu-Medrol. Chest x-ray shows no acute abnormalities and is consistent with COPD. Modified barium swallow is to follow. Objective - Vital Signs Vital signs: Vital Signs Temp 98.1 F 05/12/25 08:00 Pulse 130 H 05/12/25 10:00 Resp 11 L 05/12/25 10:00 BP 101/83 05/12/25 10:00 Pulse Ox 88 L 05/12/25 10:00 FiO2 50 05/12/25 04:50 Intake & Output 05/11/25 05/12/25 05/12/25 18:59 06:59 18:59 Intake Total 1844.250 439.25 40 Output Total 1100 900 0 Balance 744.250 -460.75 40 Weight 64.9 kg Intake: IV 110 100 40 0.9NS 110 100 40 Intake, IV Titration 134.250 339.25 Amount Azithromycin 500 mg In 250 Sodium Chloride 0.9% 250 ml @ 250 mls/hr IVPB Q24H [facility] Rx#:[id number] Diltiazem 125 mg In 124.250 39.25 Dextrose 5% in Water 100 ml @ 5 MG/HR 5 mls/hr IV .Q24H [facility] Rx#:[id number] Sodium Chloride 0.9% 1, 10 000 ml @ 50 mls/hr IV . Q20H [facility] Rx#:[id number] cefTRIAXone 1 gm In 50 Sodium Chloride 0.9% 50 ml @ 100 mls/hr IVPB Q24H [facility] Rx#:[id number] Tube Feeding 1600 Output: Urine 1100 900 0 Other: Voiding Method External Catheter External Catheter # Voids 1 # Bowel Movements 1 - Exam GENERAL EXAM: 64-year-old male, with sustained awakening, on 6 L of oxygen by nasal cannula the patient was taken off the BiPAP. HEAD: Normocephalic and atraumatic EYES: Normal reaction of pupils, equal size. Anicteric sclera. NOSE: Clear with pink turbinates. THROAT: No erythema or exudates. NECK: No masses, no JVD. CHEST: No chest wall deformity. LUNGS: Equal air entry with diminished bibasilar lung sounds and minimal inspiratory crackles CVS: S1 and S2 normal with no audible murmur, irregular rhythm consistent with atrial fibrillation. No extra heart sounds ABDOMEN: No hepatosplenomegaly, active bowel sounds, no guarding or rigidity. Negative Zafar sign SPINE: Kyphoscoliosis SKIN: Bilateral venous stasis dermatitis, right anterior weeping wound with dressing CENTRAL NERVOUS SYSTEM: No focal deficits, tone is normal in all 4 extremities. EXTREMITIES: Bilateral 1+ lower extremity edema. No clubbing, or cyanosis. Peripheral pulses are intact. - Labs CBC & Chem 7: 05/12/25 06:04 05/12/25 06:04 Labs: Abnormal Lab Results - Last 24 Hours (Table) 05/11/25 05/11/25 05/11/25 Range/Units 11:46 15:59 20:01 WBC (4.50-10.00) 10*3/uL MCV (80.0-97.0) fL MCHC (32.0-37.0) g/dL ABG pCO2 80 H* (35-45) mmHg ABG pO2 224 H (83-108) mmHg ABG HCO3 48 H* (21-25) mmol/L ABG Total CO2 50 H (19-24) mmol/L ABG O2 Saturation 100.0 H (94-97) % Chloride (98-107) mmol/L Carbon Dioxide (22-30) mmol/L BUN (9-20) mg/dL Glucose (74-99) mg/dL POC Glucose (mg/dL) 219 H 255 H (70-110) mg/dL 05/11/25 05/12/25 05/12/25 Range/Units 21:04 06:04 06:04 WBC 10.98 H (4.50-10.00) 10*3/uL MCV 97.8 H (80.0-97.0) fL MCHC 31.5 L (32.0-37.0) g/dL ABG pCO2 (35-45) mmHg ABG pO2 (83-108) mmHg ABG HCO3 (21-25) mmol/L ABG Total CO2 (19-24) mmol/L ABG O2 Saturation (94-97) % Chloride 92 L (98-107) mmol/L Carbon Dioxide 40 H (22-30) mmol/L BUN 59 H (9-20) mg/dL Glucose 139 H (74-99) mg/dL POC Glucose (mg/dL) 121 H (70-110) mg/dL 05/12/25 Range/Units 06:40 WBC (4.50-10.00) 10*3/uL MCV (80.0-97.0) fL MCHC (32.0-37.0) g/dL ABG pCO2 (35-45) mmHg ABG pO2 (83-108) mmHg ABG HCO3 (21-25) mmol/L ABG Total CO2 (19-24) mmol/L ABG O2 Saturation (94-97) % Chloride (98-107) mmol/L Carbon Dioxide (22-30) mmol/L BUN (9-20) mg/dL Glucose (74-99) mg/dL POC Glucose (mg/dL) 138 H (70-110) mg/dL Microbiology - Last 24 Hours (Table) 05/09/25 17:01 Blood Culture Gram Stain - Preliminary Blood Blood Culture - Preliminary Molecular ID Assessment and Plan Assessment: Acute hypoxemic and hypercapnic respiratory failure, requiring BiPAP, and this is consistent with COPD exacerbation and possibly with a component of mild CHF and the patient is currently off the BiPAP and 6 L of oxygen by nasal cannula. The patient did require BiPAP over the past 24 hours and the patient has been transition back to nasal cannula. Tachyarrhythmias, reportedly initially in SVT and given 6 mg of adenosine followed by 12 mg of adenosine which converted the patient to normal sinus rhythm followed by atrial fibrillation with RVR, patient was loaded with IV Cardizem followed by titratable infusion. Current rhythm continues to be in atrial fibrillation the patient continues to be on Cardizem drip at 2.5 mg an hour. The patient is also on metoprolol 25 mg p.o. twice a day and anticoagulation with Eliquis. Acute leukocytosis Acute kidney injury, creatinine is improving Lactic acidemia, improving Elevated D-dimer, systemically heparinized Transaminitis, Ultrasound of abdomen remarkable for dilated CBD measuring up to 7 mm in diameter. No evidence of obstructing stone. History of DVT/PE History of loculated left-sided pleural effusion with previous pigtail catheter History of alcohol abuse history of polysubstance abuse Chronic tobacco use Kyphoscoliosis Dysphagia, awaiting a full speech evaluation the patient is going to undergo a modified barium swallow Plan: Patient is currently in 6 L of oxygen by nasal cannula. Wean down FiO2 as tolerated to maintain saturation above 90%. Keep the patient off the BiPAP for now Continue DuoNebtreatments [id number] Continue IV Solu-Medrol IV fluids are currently at KVO Continue Rocephin and Zithromax monitor procalcitonin level which is essentially related Change metoprolol to 50 mg mg p.o. twice a day Continue Eliquis 5 mg p.o. twice daily regarding his atrial fibrillation Continue Cardizem drip and gradual weaning off as tolerated to maintain a heart rate of less than 100 Use Precedex should there be any delirium/agitation Echocardiogram was noted and the patient has a preserved LV function with mild pulmonary hypertension The patient is currently on Suboxone 8 mg on a daily basis. Continue Pepcid Complete swallow evaluation and modified barium swallow has been ordered. Meanwhile, the patient will be given his medication with some applesauce. Continue the rest of the supportive care. The patient will be kept in the ICU for now. Critical care evaluation was done and 32 minutes. Time with Patient: Greater than 30
[2025-05-12 20:09] LABS: Glucose,Whole Blood 126 mg/dL (70-110)
--- NOTE | 2025-05-12 22:45 | PN ---
PROGRESS NOTE CHIEF COMPLAINT: Acute respiratory failure, COPD and CHF. HISTORY OF PRESENT ILLNESS: This gentleman is slowly improving. Chest x-ray demonstrates improvement. He is very agitated and he is being quite uncooperative. PHYSICAL EXAMINATION: RESPIRATORY: Breath sounds are still diminished, but they are improved. There are occasional rales and rhonchi. CARDIAC: Unremarkable. IMPRESSION: 1. Acute respiratory failure. 2. Chronic obstructive pulmonary disease. 3. Congestive heart failure. 4. Flexion contracture of the neck. 5. Dependent edema and cellulitis of the legs. PLAN: Continue with this current management and increase his activities and probably move to regular unit. MMODL / IJN: [id number] /
[2025-05-13 03:52] LABS: HCT 44.2 % (39.6-50.0); HGB 14.1 g/dL (13.0-17.0); MCH 31.1 pg (27.0-32.0); MCHC 31.9 g/dL (32.0-37.0); MCV 97.6 fL (80.0-97.0); Platelet Count 195 10*3/uL (140-440); RBC 4.53 10*6/uL (4.40-5.60); RDW 13.3 % (11.5-14.5); WBC 9.29 10*3/uL (4.50-10.00)
[2025-05-13 04:06] LABS: African American GFR (CKD) >90 (>60 ml/min/1.73 sqM); Blood Urea Nitrogen 43 mg/dL (9-20); Calcium 8.8 mg/dL (8.4-10.2); Chloride 88 mmol/L (98-107); Glucose 155 mg/dL (74-99); Non-African American GFR(CKD) >90 (>60 ml/min/1.73 sqM); Potassium 4.0 mmol/L (3.5-5.1); Sodium 137 mmol/L (137-145)
[2025-05-13 04:13] LABS: Anion Gap 6 mmol/L
[2025-05-13 04:19] LABS: Carbon Dioxide 43 mmol/L (22-30)
[2025-05-13 05:22] LABS: ABG PCO2 61 mmHg (35-45); ABG PH 7.49 (7.35-7.45); ABG PO2 77 mmHg (83-108); ABG TCO2 48 mmol/L (19-24); Allen Test Performed? Yes
[2025-05-13 05:23] LABS: ABG HCO3 46 mmol/L (21-25)
[2025-05-13 06:44] LABS: Glucose,Whole Blood 149 mg/dL (70-110)
--- NOTE | 2025-05-13 07:47 | XR ---
EXAMINATION TYPE: XR chest 1V portable DATE OF EXAM: 05/13/2025 5:55 AM COMPARISON: 05/12/2025 CLINICAL INDICATION: Male, 64 years old with history of BiPAP dependent respiratory failure, , FINDINGS: Partially visualized plate and screw fixation left clavicular shaft. Heart remains mild to moderately enlarged. Left-sided rib fracture deformities. A small left pleural effusion appears to have increas ed as has patchy left basilar opacity. Mild interstitial densities persist. IMPRESSION: 1. Similar cardiomegaly with mild interstitial densities. 2. Small left pleural effusion and adjacent left basilar opacity appears to have increased. [facility], Workstation: [facility], 05/13/2025 7:44 AM
--- NOTE | 2025-05-13 09:34 | P.PN ---
Subjective Progress Note Date: 05/13/25 The patient is a 64-year-old male who was brought to the emergency room for mental status changes. 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 Patient converted to atrial fibrillation thereafter. Patient has remained in anticoagulation on and off Cardizem drip during his stay through the ICU. Patient has been noncompliant with nursing staff in regards to swallowing medications as well as failed most recent swallow evaluation by speech therapy. Cardizem drip is currently off with heart rates in the 90s. Heparin drip has been discontinued Patient was interviewed and examined resting comfortably on nasal cannula. He denies any chest pain or difficulty breathing. GENERAL: Well-appearing, well-nourished and in no acute distress. NECK: Supple without JVD or thyromegaly. LUNGS: Breath sounds diminished to auscultation bilaterally. Respiration equal and unlabored. No wheezes, rales or rhonchi. HEART: Irregular rate and rhythm without murmurs, rubs or gallops. S1 and S2 heard. EXTREMITIES: Normal range of motion, no edema. No clubbing or cyanosis. Peripheral pulses intact and strong. TELEMETRY: Atrial fibrillation with heart rates in the 90s overnight IMPRESSION: Mental status changes AVNRT, s/p adenosine A-fib with RVR Congestive heart failure Elevated D-dimer Transaminitis Chronic obstructive pulmonary disease History of EtOH abuse History of polysubstance abuse Chronic tobacco use History of pulmonary emboli and DVT PLAN: Patient has failed swallow evaluation and therefore cannot tolerate oral medications Currently rate controlled off of IV Cardizem Patient is not a candidate for long-term anticoagulation Recommend comfort care No further recommendations from the cardiac standpoint I am dictating on behalf of Dr Nikolai Templeton's history/physical and assessment/plan. Objective - Vital Signs Vital signs: Vital Signs Temp 98 F 05/13/25 08:00 Pulse 100 05/13/25 09:00 Resp 19 05/13/25 09:00 BP 116/88 05/13/25 09:00 Pulse Ox 87 L 05/13/25 09:00 FiO2 50 05/12/25 04:50 Intake & Output 05/12/25 05/13/25 05/13/25 18:59 06:59 18:59 Intake Total 182.834 736.750 86.106 Output Total 800 300 0 Balance -617.166 436.750 86.106 Weight 64.1 kg Intake: IV 120 105 10 0.9NS 120 105 10 Intake, IV Titration 62.834 511.750 76.106 Amount Azithromycin 500 mg In 250 Sodium Chloride 0.9% 250 ml @ 250 mls/hr IVPB Q24H [facility] Rx#:[id number] Dexmedetomidine/0.9% NaCl 100.000 76.106 (Pmx) 400 mcg In Empty Bag 1 bag @ 0.2 MCG/KG/HR 3.37 mls/hr IV .Q24H [facility] Rx#:[id number] Diltiazem 125 mg In 62.834 111.75 Dextrose 5% in Water 100 ml @ 5 MG/HR 5 mls/hr IV .Q24H [facility] Rx#:[id number] cefTRIAXone 1 gm In 50 Sodium Chloride 0.9% 50 ml @ 100 mls/hr IVPB Q24H [facility] Rx#:[id number] Oral 120 Output: Urine 800 300 0 Other: Voiding Method External Catheter External Catheter # Voids 1 1 - Labs CBC & Chem 7: 05/13/25 03:18 05/13/25 03:18 Labs: Abnormal Lab Results - Last 24 Hours (Table) 05/12/25 05/12/25 05/12/25 Range/Units 06:04 17:10 20:08 MCV (80.0-97.0) fL MCHC (32.0-37.0) g/dL Chloride (98-107) mmol/L Carbon Dioxide (22-30) mmol/L BUN (9-20) mg/dL Glucose (74-99) mg/dL POC Glucose (mg/dL) 170 H 126 H (70-110) mg/dL Hemoglobin A1c 6.5 H (<=6.0) % 05/13/25 05/13/25 05/13/25 Range/Units 03:18 03:18 06:43 MCV 97.6 H (80.0-97.0) fL MCHC 31.9 L (32.0-37.0) g/dL Chloride 88 L (98-107) mmol/L Carbon Dioxide 43 H* (22-30) mmol/L BUN 43 H (9-20) mg/dL Glucose 155 H (74-99) mg/dL POC Glucose (mg/dL) 149 H (70-110) mg/dL Hemoglobin A1c (<=6.0) % Microbiology - Last 24 Hours (Table) 05/09/25 17:01 Blood Culture Gram Stain - Preliminary Blood Blood Culture - Preliminary Staphylococcus hominis Molecular ID
[2025-05-13] MEDS: LACTATED RINGERS 1,000 ML IV SCH (10:42)
[2025-05-13] MEDS: THIAMINE 100 MG/ML 2 ML VIAL IVP SCH (11:04)
[2025-05-13 11:17] LABS: Glucose,Whole Blood 156 mg/dL (70-110)
--- NOTE | 2025-05-13 12:58 | CT ---
EXAMINATION TYPE: CT brain wo con DATE OF EXAM: 05/13/2025 12:07 PM COMPARISON: None. CLINICAL INDICATION: Male, 64 years old with history of R/O stroke, AMS TECHNIQUE: CT of the brain is performed utilizing 3 mm thick sections through the posterior fossa and 3 mm thick sections through the remaining calvarium. Study is performed within 24 hours of arrival to the hospital. Contrast used: mL of , (none if empty) CT DLP: 1317.4 mGycm, Automated exposure control for dose reduction was used. Patient positioning limited. Patient cooperation limited. Metallic hardware present on the left. FINDINGS: Images are essentially nondiagnostic. Significant shadowing and beam hardening artifact covers the ri ght brain. Underlying infarcts would be difficult to exclude. There is limited visualization left hem isphere. Reconstructed images suggests essentially midline structures in position. No large mass effe ct identified. IMPRESSION: 1. Nondiagnostic CT brain. [facility], , 05/13/2025 12:55 PM
--- NOTE | 2025-05-13 13:21 | P.GSCN ---
History of Present Illness Consult date: 05/13/25 History of present illness: CHIEF COMPLAINT: Shortness of breath HISTORY OF PRESENT ILLNESS: This is a 64-year-old male who presented with shortness of breath and evidence of respiratory failure with COPD exacerbation and mild CHF. Also evidence of A-fib RVR. Patient failed his swallow eval with evidence of silent aspiration noted per speech therapy. Patient is n.p.o. and surgical service consulted for PEG tube placement. Patient is currently confused and I had CT scan of the brain to rule out stroke completed. Patient had been on Eliquis for the atrial fibrillation. Last dose of Eliquis was May 12 in the evening. Patient does have a history of EtOH use. PAST MEDICAL HISTORY: COPD, Diabetes Mellitus, Deep Vein Thrombosis (DVT), Hypertension, Musculo skeletal Disorder, Pneumonia, Pulmonary Embolus (PE), schizophrenia, anxiety and depression PAST SURGICAL HISTORY: See below MEDICATIONS: See below ALLERGIES: See below SOCIAL HISTORY: No illicit drug use. REVIEW OF SYSTEMS: CONSTITUTIONAL: Denies fever or chills. HEENT: Denies blurred vision, vision changes, or eye pain. Denies hemoptysis CARDIOVASCULAR: Denies chest pain or pressure. RESPIRATORY: No shortness of breath. GASTROINTESTINAL: See HPI for pertinent findings HEMATOLOGIC: Denies bleeding disorders. GENITOURINARY: Denies any blood in urine or increased urinary frequency. SKIN: Denies pruitis. Denies rash. PHYSICAL EXAM: VITAL SIGNS: Reviewed GENERAL: Well-developed in no acute distress. HEENT: No sclera icterus. Extraocular movements grossly intact. Moist buccal mucosa. Head is atraumatic, normocephalic. No nasal drainage. ABDOMEN: Soft. Nondistended. Nontender NEUROLOGIC: awake. confused LABORATORY DATA: WBC 10.9 down to 9.29 Hgb 14.1 platelets 195 Sodium 137 potassium 4.0 creatinine 0.81 Albumin 3.8 IMAGING: ASSESSMENT: 1. Dysphagia 2. Failed swallow eval 3. Moderate protein calorie nutrition PLAN: - Patient scheduled for EGD with PEG tube placement tomorrow with Dr. Bustamante - Placed Eliquis on hold Physician Cash Person note has been reviewed by physician. Signing provider agrees with the documented findings, assessment, and plan of care. Past Medical History Past Medical History: COPD, Diabetes Mellitus, Deep Vein Thrombosis (DVT), Hypertension, Musculoskeletal Disorder, Pneumonia, Pulmonary Embolus (PE) Additional Past Medical History / Comment(s): "broken back 01/06/19", "heart arrhythmia's," DVT right leg, PE History of Any Multi-Drug Resistant Organisms: None Reported Past Surgical History: Orthopedic Surgery Additional Past Surgical History / Comment(s): left clavicle, jaw, lt leg Past Anesthesia/Blood Transfusion Reactions: No Reported Reaction Past Psychological History: Anxiety, Depression, Schizophrenia Smoking Status: Former smoker Past Alcohol Use History: None Reported, Abuse, Daily, Heavy Past Drug Use History: None Reported - Past Family History Sister(s) Family Medical History: Cancer Additional Family Medical History / Comment(s): 2 sisters from cancer Mother Family Medical History: Coronary Artery Disease (CAD) Father Additional Family Medical History / Comment(s): Alcoholic Medications and Allergies Home Medications Medication Instructions Recorded Confirmed Type Albuterol Inhaler [Ventolin Hfa 2 puff INHALATION RT-Q6H PRN 05/09/25 05/09/25 History Inhaler] Albuterol Nebulized [Ventolin 2.5 mg INHALATION RT-QID PRN 05/09/25 05/09/25 History Nebulized] Budesonide-Formot 160-4.5 Mcg 2 puff INHALATION RT-BID 05/09/25 05/09/25 History [Symbicort 160-4.5 Mcg Inhaler] Buprenorphine HCl/Naloxone HCl 1 film SL BID 05/09/25 05/09/25 History [Suboxone 8 mg-2 mg Sl Film] Furosemide [Lasix] 80 mg PO DAILY 05/09/25 05/09/25 History Meloxicam [Mobic] 15 mg PO DAILY 05/09/25 05/09/25 History Multivitamins, Thera [Multivitamin 1 tab PO DAILY 05/09/25 05/09/25 History (formulary)] Mupirocin 2% Oint [Bactroban 2% 1 applic TOPICAL TID 05/09/25 05/09/25 History Oint] Nicotine 21Mg/24Hr Patch [Habitrol] 1 patch TRANSDERM DAILY PRN 05/09/25 05/09/25 History Allergies Allergy/AdvReac Type Severity Reaction Status Date / Time No Known Allergies Allergy Verified 05/09/25 18:47 Surgical - Exam Vital Signs FiO2 100 05/09/25 16:53 Results - Labs 05/13/25 03:18 05/13/25 03:18 Abnormal Lab Results - Last 24 Hours (Table) 05/12/25 05/12/25 05/13/25 Range/Units 17:10 20:08 03:18 MCV 97.6 H (80.0-97.0) fL MCHC 31.9 L (32.0-37.0) g/dL ABG pH (7.35-7.45) ABG pCO2 (35-45) mmHg ABG pO2 (83-108) mmHg ABG HCO3 (21-25) mmol/L ABG Total CO2 (19-24) mmol/L Chloride (98-107) mmol/L Carbon Dioxide (22-30) mmol/L BUN (9-20) mg/dL Glucose (74-99) mg/dL POC Glucose (mg/dL) 170 H 126 H (70-110) mg/dL 05/13/25 05/13/25 05/13/25 Range/Units 03:18 05:20 06:43 MCV (80.0-97.0) fL MCHC (32.0-37.0) g/dL ABG pH 7.49 H (7.35-7.45) ABG pCO2 61 H (35-45) mmHg ABG pO2 77 L (83-108) mmHg ABG HCO3 46 H* (21-25) mmol/L ABG Total CO2 48 H (19-24) mmol/L Chloride 88 L (98-107) mmol/L Carbon Dioxide 43 H* (22-30) mmol/L BUN 43 H (9-20) mg/dL Glucose 155 H (74-99) mg/dL POC Glucose (mg/dL) 149 H (70-110) mg/dL 05/13/25 Range/Units 11:15 MCV (80.0-97.0) fL MCHC (32.0-37.0) g/dL ABG pH (7.35-7.45) ABG pCO2 (35-45) mmHg ABG pO2 (83-108) mmHg ABG HCO3 (21-25) mmol/L ABG Total CO2 (19-24) mmol/L Chloride (98-107) mmol/L Carbon Dioxide (22-30) mmol/L BUN (9-20) mg/dL Glucose (74-99) mg/dL POC Glucose (mg/dL) 156 H (70-110) mg/dL Microbiology - Last 24 Hours (Table) 05/09/25 17:01 Blood Culture Gram Stain - Final Blood Blood Culture - Final Staphylococcus hominis Molecular ID Diabetes panel 05/13/25 Range/Units 03:18 Sodium 137 (137-145) mmol/L Potassium 4.0 (3.5-5.1) mmol/L Chloride 88 L (98-107) mmol/L Carbon Dioxide 43 H* (22-30) mmol/L BUN 43 H (9-20) mg/dL Creatinine 0.81 (0.66-1.25) mg/dL Glucose 155 H (74-99) mg/dL Calcium 8.8 (8.4-10.2) mg/dL Calcium panel 05/13/25 Range/Units 03:18 Calcium 8.8 (8.4-10.2) mg/dL Pituitary panel 05/13/25 Range/Units 03:18 Sodium 137 (137-145) mmol/L Potassium 4.0 (3.5-5.1) mmol/L Chloride 88 L (98-107) mmol/L Carbon Dioxide 43 H* (22-30) mmol/L BUN 43 H (9-20) mg/dL Creatinine 0.81 (0.66-1.25) mg/dL Glucose 155 H (74-99) mg/dL Calcium 8.8 (8.4-10.2) mg/dL Adrenal panel 05/13/25 Range/Units 03:18 Sodium 137 (137-145) mmol/L Potassium 4.0 (3.5-5.1) mmol/L Chloride 88 L (98-107) mmol/L Carbon Dioxide 43 H* (22-30) mmol/L BUN 43 H (9-20) mg/dL Creatinine 0.81 (0.66-1.25) mg/dL Glucose 155 H (74-99) mg/dL Calcium 8.8 (8.4-10.2) mg/dL
[2025-05-13] MEDS ORDERED: VANCOMYCIN IV PER PHARMACY 1 EACH MISC MISCELLANE PRN (14:45)
[2025-05-13 16:21] LABS: Glucose,Whole Blood 142 mg/dL (70-110)
--- NOTE | 2025-05-13 16:22 | P.PN ---
Subjective Progress Note Date: 05/13/25 Patient is a 64-year-old male with past medical history significant for COPD, DVT/PE, loculated left-sided pleural effusion, alcohol abuse, polysubstance abuse. Patient brought in by EMS yesterday evening. Reportedly, the patient is homeless. He was at a friend's house the previous day and noted to be increasingly confused and lethargic. When EMS arrived the patient's pulse ox was reportedly 59%. He was barely responsive, requiring BVM ventilation. The patient was not intubated. Transitioned to BiPAP on arrival. Found to be in SVT, given IV push adenosine 6 mg and then 12 mg which reportedly terminated the arrhythmia. Later, the patient went into atrial fibrillation with RVR. He was given a Cardizem IV bolus and placed on a Cardizem infusion. Further workup including a chest x-ray showing cardiomegaly, pulmonary vascular congestion, and possible small left pleural effusion. He was given 80 mg of total IV Lasix in the ED. Labs including a CBC with a WBC count of 22.4, hemoglobin 15.2, platelets 244. CMP with a sodium of 141, potassium 5.5, chloride 94, serum bicarb 39, BUN 48, creatinine 1.85, glucose 119. Lactic 2.1. AST 1503, ALT 1178, ALP 129. [place]roponin 0[place]12[place] [address]. D-dimer also was elevated has 7.3. Patient was previously systemically heparinized for the atrial fibrillation. Ultrasound of abdomen remarkable for dilated CBD measuring up to 7 mm in diameter. No evidence of obstructing stone. Patient is now being evaluated in intensive care unit. He remains on BiPAP with current settings 10/23 and FiO2 of 80%. He does wake up to verbal stimuli and has sustained awakening. BiPAP does make it difficult to communicate. Follow-up ABG with some improvement, done on FiO2 of 100% with a PaO2 of 153, pCO2 of 74, pH of 7.31. He does have lower extremity edema. He has an external urinary catheter, and there is 650 cc of urine collected. Continues on Cardizem at 10 mg/h. Also, systemically heparinized. Current rhythm appears to be normal sinus in the mid 70s beats per minute. Blood pressure is normotensive. He was previously empir ically covered on azithromycin and Rocephin. Afebrile. On 05/11/2025, the patient is being seen for a follow-up. On today's evaluation, the patient denies having any significant shortness of breath. He is currently on oxygen 6 L/min nasal cannula and BiPAP has been discontinued. IV fluids are currently at KVO. He is slightly delusional and he thinks that were causing more harm to his care in the ICU. He remains in atrial fibrillation. Cardizem drip is still running at 50 mg an hour and the patient remains on IV heparin. Blood cultures positive for coagulase-negative staph, likely contaminant. He seems to be less short of breath compared to yesterday. He is able to communicate. The white cell count is 15, improved compared to yesterday with hemoglobin 14.7 and a platelet count of 242. The patient's BUN is 58 with a creatinine of 1.1 and the creatinine is improved compared to yesterday. Serum bicarb is 46, sodium is 142 with a potassium level of 4 and a chloride of 91. His procalcitonin level is at 2.27. His UA was negative. A follow-up chest x- ray was done today and it shows COPD with some mild pulm vascular congestion. Left base underpenetrated and not well assessed. The patient remains on broad- spectrum antibiotics. The patient remains on a combination of Rocephin and and Zithromax. His echocardiogram was also completed and the patient has a normal ejection fraction of 55 to 60%. The patient has mild decrease in septal wall thickening, mild RV dilatation, mild PA pressures elevation. No significant valvular abnormalities. On 05/12/2025, the patient is being seen for a follow-up. The patient was having episodes of delirium and the patient was placed on Precedex and currently is off Precedex. He also experienced worsening shortness of breath and the patient was placed on BiPAP at a pressure of 12/6 with an FiO2 of 50%. Subsequently, he was taken off the BiPAP and the patient is currently on 5 L of oxygen nasal cannula. He remains atrial fibrillation. Cardizem drip is running at 2.5 mg an hour. The patient was unable to take his oral medication due to concerns of dysphagia. A modified barium swallow was also ordered. Fluid balance is +213 cc over the past 24 hours. He remains in atrial fibrillation and he does have some underlying tachycardia. The white cell count is at 10.9 with a heme of 13.8 and a platelet count of 177. Electrolytes show a sodium level of 138, bicarbonate 40, BUN 59 with a creatinine 0.8. Blood sugars at 170. The patient remains on DuoNeb updrafts. The patient remains on IV Rocephin and Zithromax. The patient remains on anticoagulation with Eliquis and the medication was going to be given to him with applesauce. He is also on Lopressor 25 mg twice a day. Remains on IV Solu-Medrol. Chest x-ray shows no acute abnormalities and is consistent with COPD. Modified barium swallow is to follow. On 05/13/2025, the patient is awake. He continues to have episodes of confusion and some paranoid ideations. Nevertheless, neurologically, he is exam is nonfocal and is able to move all 4 extremities without any limitations. Denies having any shortness of breath. He remains on oxygen 66/min nasal cannula. However, he is having difficulties with swallowing. The patient was seen by speech pathology and the patient underwent a modified barium swallow which she obviously failed and the patient was kept n.p.o. as the patient was noted to have aspiration. As such, the patient is not receiving any oral intake at this point. The patient's follow-up blood gases from today shows a pH of 7.49 with a PCO2 of 61 and pO2 of 77. Electrolytes show a sodium level of 137, potassium is at 4, bicarb is 43, BUN is 43 with a creatinine of 0.8. WBC count is at 9.2 with a hemoglobin of 14 and a platelet count of 195. The patient remains atrial fibrillation. Rate is controlled. The patient is currently off the Cardizem drip. Unfortunately, he has not been able to take his anticoagulants and he has not been able to take his beta-blockers. He remains on bronchodilators. He remains on IV Solu-Medrol 60 mg every 6 hours. The blood culture was positive for staph hominis. Vancomycin was added to the regimen and the patient remains on Rocephin. No agitation at this point. Will recommend another swallow evaluation on this patient. Will also order a CAT scan of the brain to rule out development of any stroke contributing to his ongoing dysphagia. Objective - Vital Signs Vital signs: Vital Signs Temp 98 F 05/13/25 08:00 Pulse 100 05/13/25 09:00 Resp 19 05/13/25 09:00 BP 116/88 05/13/25 09:00 Pulse Ox 87 L 05/13/25 09:00 FiO2 50 05/12/25 04:50 Intake & Output 05/12/25 05/13/25 05/13/25 18:59 06:59 18:59 Intake Total 182.834 736.750 90.038 Output Total 800 300 0 Balance -617.166 436.750 90.038 Weight 64.1 kg Intake: IV 120 105 10 0.9NS 120 105 10 Intake, IV Titration 62.834 511.750 80.038 Amount Azithromycin 500 mg In 250 Sodium Chloride 0.9% 250 ml @ 250 mls/hr IVPB Q24H [facility] Rx#:[id number] Dexmedetomidine/0.9% NaCl 100.000 80.038 (Pmx) 400 mcg In Empty Bag 1 bag @ 0.2 MCG/KG/HR 3.37 mls/hr IV .Q24H [facility] Rx#:[id number] Diltiazem 125 mg In 62.834 111.75 Dextrose 5% in Water 100 ml @ 5 MG/HR 5 mls/hr IV .Q24H [facility] Rx#:[id number] cefTRIAXone 1 gm In 50 Sodium Chloride 0.9% 50 ml @ 100 mls/hr IVPB Q24H [facility] Rx#:[id number] Oral 120 Output: Urine 800 300 0 Other: Voiding Method External Catheter External Catheter # Voids 1 1 - Exam GENERAL EXAM: 64-year-old male, with sustained awakening, on 6 L of oxygen by nasal cannula the patient was weaned down to 3 L of oxygen by nasal cannula. HEAD: Normocephalic and atraumatic EYES: Normal reaction of pupils, equal size. Anicteric sclera. NOSE: Clear with pink turbinates. THROAT: No erythema or exudates. NECK: No masses, no JVD. CHEST: No chest wall deformity. LUNGS: Equal air entry with diminished bibasilar lung sounds and minimal inspiratory crackles CVS: S1 and S2 normal with no audible murmur, irregular rhythm consistent with atrial fibrillation. No extra heart sounds ABDOMEN: No hepatosplenomegaly, active bowel sounds, no guarding or rigidity. Negative Zafar sign SPINE: Kyphoscoliosis SKIN: Bilateral venous stasis dermatitis, right anterior weeping wound with dressing CENTRAL NERVOUS SYSTEM: No focal deficits, tone is normal in all 4 extremities. EXTREMITIES: No significant edema lower extremities bilaterally.. No clubbing, or cyanosis. Peripheral pulses are intact. - Labs CBC & Chem 7: 05/13/25 03:18 05/13/25 03:18 Labs: Abnormal Lab Results - Last 24 Hours (Table) 05/12/25 05/12/25 05/12/25 Range/Units 06:04 17:10 20:08 MCV (80.0-97.0) fL MCHC (32.0-37.0) g/dL Chloride (98-107) mmol/L Carbon Dioxide (22-30) mmol/L BUN (9-20) mg/dL Glucose (74-99) mg/dL POC Glucose (mg/dL) 170 H 126 H (70-110) mg/dL Hemoglobin A1c 6.5 H (<=6.0) % 05/13/25 05/13/25 05/13/25 Range/Units 03:18 03:18 06:43 MCV 97.6 H (80.0-97.0) fL MCHC 31.9 L (32.0-37.0) g/dL Chloride 88 L (98-107) mmol/L Carbon Dioxide 43 H* (22-30) mmol/L BUN 43 H (9-20) mg/dL Glucose 155 H (74-99) mg/dL POC Glucose (mg/dL) 149 H (70-110) mg/dL Hemoglobin A1c (<=6.0) % Microbiology - Last 24 Hours (Table) 05/09/25 17:01 Blood Culture Gram Stain - Preliminary Blood Blood Culture - Preliminary Staphylococcus hominis Molecular ID Assessment and Plan Assessment: Acute hypoxemic and hypercapnic respiratory failure, requiring BiPAP, and this is consistent with COPD exacerbation and possibly with a component of mild CHF and the patient is currently off the BiPAP and 3 thirds of oxygen by nasal cannula. Patient remains off the BiPAP. Blood gases show a compensated respiratory acidosis. In fact, the patient has a component of metabolic alkalosis.Repeat chest x-ray from 05/13/2025 shows no acute abnormalities. Small left-sided pleural effusion/atelectasis along with cardiomegaly. Tachyarrhythmias, reportedly initially in SVT and given 6 mg of adenosine followed by 12 mg of adenosine which converted the patient to normal sinus rhythm followed by atrial fibrillation with RVR, patient was loaded with IV Cardizem followed by titratable infusion. Current rhythm continues to be in atrial fibrillation the patient continues to be on Cardizem drip at 2.5 mg an hour. The patient is also on metoprolol 25 mg p.o. twice a day and anticoagulation with Eliquis. Acute leukocytosis, improved and the patient had a drop in the white cell count. Blood cultures positive for Staph hominis. Currently on a combination of R ocephin and vancomycin was also added to the regimen. Acute kidney injury, creatinine is improved Lactic acidemia, improving Elevated D-dimer, systemically heparinized Transaminitis, Ultrasound of abdomen remarkable for dilated CBD measuring up to 7 mm in diameter. No evidence of obstructing stone. History of DVT/PE History of loculated left-sided pleural effusion with previous pigtail catheter History of alcohol abuse history of polysubstance abuse Chronic tobacco use Kyphoscoliosis Dysphagia, awaiting a full speech evaluati failed a modified barium swallow and the patient remains n.p.o. Possible culture with Staph hominis Plan: Patient is currently i on 3 L of oxygen by nasal cannula. Wean down FiO2 as tolerated to maintain saturation above 90%. Keep the patient off the BiPAP for now Continue DuoNebtreatments [id number] Continue IV Solu-Medrol Patient is currently n.p.o. and the patient will have another swallow evaluation today. Meanwhile, we will start the patient on lactated Ringer at rate of 50 cc an hour Continue Rocephin and vancomycin was added based on presence of Staph hominis in the blood Will restart metoprolol and Eliquis once the patient is able to swallow Echocardiogram was noted and the patient has a preserved LV function with mild pulmonary hypertension Continue Pepcid Consider PEG tube insertion if the patient is unable to swallow and he continues to fail swallow evaluations. Continue the rest of the supportive care. The patient will be kept in the ICU for now. Critical care evaluation was done and 32 minutes. Time with Patient: Greater than 30
[2025-05-13] MEDS: VANCOMYCIN 1,250 MG in SODIUM CHLORIDE 0.9% 250 ML IVPB ONE (16:23)
--- NOTE | 2025-05-13 23:21 | PN ---
PROGRESS NOTE DATE OF SERVICE: 05/13/2025 CHIEF COMPLAINT: Acute respiratory failure and COPD. HISTORY OF PRESENT ILLNESS: This gentleman is doing fairly well, but he is still very agitated and uncooperative. PHYSICAL EXAMINATION: LUNGS: Breath sounds are poor throughout. CARDIAC: Has sounds like sinus tachycardia. ABDOMEN: Soft. IMPRESSION: 1. Acute respiratory failure. 2. Chronic obstructive pulmonary disease. 3. Congestive heart failure. 4. General debility. 5. Opioid abuse. PLAN: 1. Probably progress activity. 2. Change his thiamin to IV. 3. Consult Surgery for possible PEG tube placement because speech evaluation indicates that he cannot swallow at all. MMODL / IJN: [id number] /
[2025-05-14 04:55] LABS: Basophils # (A) 0.01 10*3/uL (0.00-0.10); Basophils % (A) 0.1 %; Eosinophils # (A) 0.00 10*3/uL (0.04-0.35); Eosinophils % (A) 0.0 %; HCT 42.6 % (39.6-50.0); HGB 14.3 g/dL (13.0-17.0); Lymphocytes # (A) 0.41 10*3/uL (0.90-5.00); Lymphocytes % (A) 4.9 %; MCH 31.4 pg (27.0-32.0); MCHC 33.6 g/dL (32.0-37.0); MCV 93.6 fL (80.0-97.0); Monocytes # (A) 0.32 10*3/uL (0.20-1.00); Monocytes % (A) 3.8 %; Neutrophils # (A) 7.69 10*3/uL (1.80-7.70); Neutrophils % (A) 91.0 %; Platelet Count 169 10*3/uL (140-440); RBC 4.55 10*6/uL (4.40-5.60); RDW 13.1 % (11.5-14.5); WBC 8.45 10*3/uL (4.50-10.00)
[2025-05-14 05:11] LABS: African American GFR (CKD) >90 (>60 ml/min/1.73 sqM); Anion Gap 6 mmol/L; Blood Urea Nitrogen 36 mg/dL (9-20); Calcium 8.8 mg/dL (8.4-10.2); Carbon Dioxide 40 mmol/L (22-30); Chloride 88 mmol/L (98-107); Glucose 165 mg/dL (74-99); Non-African American GFR(CKD) >90 (>60 ml/min/1.73 sqM); Potassium 3.9 mmol/L (3.5-5.1); Sodium 134 mmol/L (137-145)
[2025-05-14] MEDS: VANCOMYCIN 1,250 MG in SODIUM CHLORIDE 0.9% 250 ML IVPB SCH (05:30)
[2025-05-14] MEDS: POTASSIUM CHLORIDE 10 MEQ in WATER FOR INJECTION 1 100ML.BAG IVPB SCH (08:50)
--- NOTE | 2025-05-14 09:21 | XR ---
EXAMINATION TYPE: XR chest 1V portable DATE OF EXAM: 05/14/2025 4:41 AM COMPARISON: 05/13/2025 CLINICAL INDICATION: Male, 64 years old with history of mechanical ventilation, , FINDINGS: Plate and screw fixation left clavicular shaft. Heart remains mildly enlarged. Interstitial density a lso remains. Some improvement in the patient's left pleural effusion but with residual left basilar r etrocardiac opacity. Hyperinflation. IMPRESSION: 1. COPD with ongoing pulmonary vascular congestion. 2. Small left pleural effusion with adjacent atelectasis and/or consolidation shows slight improvemen t. [facility], , 05/14/2025 9:18 AM
[2025-05-14] MEDS ORDERED: flUPHENAZine 2.5 MG/ML (MDV) 10 ML VIAL IM PRN (13:47)
[2025-05-14] MEDS ORDERED: LORazepam 1 MG/0.5 ML VIAL IM PRN (13:47)
--- NOTE | 2025-05-14 13:53 | FL ---
Exam Date: 05/14/2025 12:53 PM. Modified barium swallow for dysphagia. Consistencies administered: Various consistency of barium. No images were sent to PACS. Please see speech pathology report. DAP: 258 mGym2 Gycm2 [facility], , 05/14/2025 1:51 PM
--- NOTE | 2025-05-14 13:59 | P.CN ---
Psychiatric Consult - . Consult date: 05/14/25 Consult:: 05/14/25 13:05 IDENTIFYING DATA: This patient is a 64-year-old male, he is homeless, has a history of schizophrenia REASON FOR REFERRAL: Psychiatry was consulted for capacity evaluation and psychiatric assessment HISTORY OF PRESENT ILLNESS: The patient presented to the hospital initially on 05/09 by EMS for altered mental status, he is homeless, he has several comorbidities medically. Patient was found to be in respiratory failure, he was also found to be septic acute kidney infection. Patient is not passing his swallow evaluation and surgeries recommending a PEG tube however has not been placed yet. Patient had a CAT scan of the brain which was nondiagnostic according to impression. Patients nurse claims that patient has been agitated and aggressive, psychotic delusional and paranoid. Patient was seen laying in bed today, he appeared to have very poor insight for judgment. He knew he was in the hospital he knew his name and today's date. He does not know why he is getting treatment. We spoke about his condition and needing a PEG tube due to swallow evaluation and he is still requesting food and does not understand the risks of not getting this done including choking and possibly aspiration or . He appears to be impulsive, poor judgment. Attempted to asking what is past psychiatric history and medications and does admit that he has schizophrenia however not able to tell what medications he was on and was not able to identify any previous treatment. Denies any depression or anxiety. He was a poor historian. At this time patient denies any suicidal or homical ideations, intent or plan. Patient denies any auditory, visual hallucinations. According to the sitter, he claims that patient was believing that they were trying to harm him and that God sent him. Patients denied any substance use. He apparently does have a history of drinking alcohol however unknown quantity, denying any withdrawal symptoms at this time. PAST PSYCHIATRIC HISTORY: Patient has a a history of schizophrenia and alcohol use. Patient denies being on any psychiatric medications, claims that he used to be on medications however is not able to identify any. Patient denies any previous psychiatric hospitalizations. Patient denies any psychiatric outpatient follow-up. PAST MEDICAL HISTORY: As per medical H&P ALLERGIES: as per EMR. CHEMICAL DEPENDENCY HISTORY: as per HPI. FAMILY PSYCHIATRIC/SUBSTANCE USE HISTORY: Patient unable to give this history SOCIAL HISTORY: Patient is currently homeless, unable to get further social history due to mental status MENTAL STATUS EXAM: General Appearance: Patient appears to be thin, shaved head, stated age is alert, irritable and agitated at times unpredictable. Patient appears to have poor hygiene and grooming wearing hospital gown with poor eye contact. Behavior: Patient is lying in bed, is irritable at times and unpredictable Speech: Patient's speech is disorganized, impaired Mood/Affect: Patient reports their mood is "ok", affect is congruent and constricted Suicidality/Homicidality: Patient denies having any suicidal or homicidal ideation intent or plan. Perceptions: Patient denies any visual hallucinations and denies any auditory h allucinations Though content/process: n concrete, poverty of content. Poor historian. Delusional and paranoid Memory and concentration: AOX3, fair attention span, poor reality testing. Cannot spell "WORLD" backwards Judgment and insight: Poor/impulsive IMPRESSIONS: Psychosis unspecified, likely schizophrenia Noncompliance with medications PLAN: -At this time patient DOES NOT meet criteria for inpatient psychiatric admission due to patient having several medical comorbidities requiring treatment. -Patient DOES NOT have decision making capacity at this time and is unable to reason through and communicate/appreciate the risks, benefits and alternatives to treatment. -Delirium precautions recommended with patient including - avoiding use of narcotics and LITERACY COACH sedatives, limit anticholinergic medications when possible, frequent re-orientation, minimize use of restraints, open window shades during the day and close them at night -Would recommend the following medication changes/additions: Start Prolixin IM 3 mg twice daily for psychosis/agitation, this can be titrated as needed and also can be transition onto long-acting injection if patient agrees and is improving. Prolixin every 6 hours IM as needed for severe agitation, Ativan IM every 6 hours as needed for agitation. Patient has not able to receive p.o. medications at this time due to nonpassing swallow evaluation. Awaiting PEG tube placement. -CIWA protocol with PRN Ativan for alcohol withdrawal. Continue to monitor vital signs. This can be discontinued in the next day or so as patient has likely been off etoh past the withdrawal window -Continue 1:1 sitter for safety -general lithographic worker to provide patient with outpatient mental health/psychiatry resources for appropriate follow up upon discharge -Casting Agent spoke with patient about substance abuse and the harmful effects on medical and mental health, patient verbally understood and agreed. -Communicated plan to patient's nurse -Will continue to follow along as needed -Please contact with any questions. 05/14/25 13:48
--- NOTE | 2025-05-14 14:09 | P.PN ---
Subjective Progress Note Date: 05/14/25 SURGICAL PROGRESS NOTE CHIEF COMPLAINT: Shortness of breath HISTORY OF PRESENT ILLNESS: Surgical service following for possible PEG tube placement. Patient failed swallow eval. Patient to have repeat MBS today and to be evaluated by psychiatry. PEG tube for today has been canceled. Unable to obtain consent. Patient remains confused. PHYSICAL EXAM: VITAL SIGNS: Reviewed. GENERAL: no acute distress. ABDOMEN: Soft. Nondistended. Nontender. NEUROLOGIC: Confused ASSESSMENT: 1. Dysphagia 2. Failed swallow eval, silent aspiration 3. Moderate protein calorie nutrition PLAN: - PEG tube canceled for today, unable to get consent - Follow-up on MBS study and psych evaluation Physician Color Control Operator note has been reviewed by physician. Signing provider agrees with the documented findings, assessment, and plan of care. I have personally seen and examined the patient, reviewed the SWITCH OPERATORS SUPERVISOR /PAs history, exam and MDM and agree with the assessment and plan as written. Based on total visit time, I have performed more than 50% of the visit. As above: Patient with significant kyphosis. Apparently did not do well with today's swallow evaluation either. Will discuss further with medical service. If PEG tube placement planned will require ECF at discharge. Objective - Vital Signs Vital signs: Vital Signs Temp 97.8 F 05/14/25 08:00 Pulse 96 05/14/25 10:00 Resp 14 05/14/25 10:00 BP 129/98 05/14/25 10:00 Pulse Ox 94 L 05/14/25 10:00 FiO2 50 05/14/25 00:47 Intake & Output 05/13/25 05/14/25 05/14/25 18:59 06:59 18:59 Intake Total 094.826 7273.326 414.500 Output Total 450 800 200 Balance 379.356 414.326 214.500 Weight 64.1 kg 63.8 kg Intake: IV 640 960 250 0.9NS 90 110 50 Lactated Ringers 1,000 ml 300 500 200 @ 50 mls/hr IV .Q20H [facility] Rx#:[id number] Vancomycin 1,250 mg In 250 250 Sodium Chloride 0.9% 250 ml @ 125 mls/hr IVPB ONCE ONE Rx#:[id number] cefTRIAXone 1 gm In 100 Sodium Chloride 0.9% 50 ml @ 100 mls/hr IVPB Q24H [facility] Rx#:[id number] Intake, IV Titration 189.356 254.326 164.500 Amount Dexmedetomidine/0.9% NaCl 176.106 204.868 100.000 (Pmx) 400 mcg In Empty Bag 1 bag @ 0.2 MCG/KG/HR 3.37 mls/hr IV .Q24H [facility] Rx#:[id number] Diltiazem 125 mg In 13.250 49.458 64.5 Dextrose 5% in Water 100 ml @ 5 MG/HR 5 mls/hr IV .Q24H [facility] Rx#:[id number] Output: Urine 450 800 200 Other: Voiding Method External Catheter External Catheter External Catheter # Voids 1 1 - Labs CBC & Chem 7: 05/14/25 04:38 05/14/25 04:33 Labs: Abnormal Lab Results - Last 24 Hours (Table) 05/13/25 05/14/25 05/14/25 Range/Units 16:18 04:33 04:38 Lymphocytes # 0.41 L (0.90-5.00) 10*3/uL Eosinophils # 0.00 L (0.04-0.35) 10*3/uL Sodium 134 L (137-145) mmol/L Chloride 88 L (98-107) mmol/L Carbon Dioxide 40 H (22-30) mmol/L BUN 36 H (9-20) mg/dL Glucose 165 H (74-99) mg/dL POC Glucose (mg/dL) 142 H (70-110) mg/dL Microbiology - Last 24 Hours (Table) 05/09/25 17:01 Blood Culture Gram Stain - Final Blood Blood Culture - Final Staphylococcus hominis Molecular ID
[2025-05-14] MEDS: flUPHENAZine 2.5 MG/ML (MDV) 10 ML VIAL IM SCH (15:11)
--- NOTE | 2025-05-14 15:21 | P.PN ---
Subjective Progress Note Date: 05/14/25 Patient is a 64-year-old male with past medical history significant for COPD, DVT/PE, loculated left-sided pleural effusion, alcohol abuse, polysubstance abuse. Patient brought in by EMS yesterday evening. Reportedly, the patient is homeless. He was at a friend's house the previous day and noted to be increasingly confused and lethargic. When EMS arrived the patient's pulse ox was reportedly 59%. He was barely responsive, requiring BVM ventilation. The patient was not intubated. Transitioned to BiPAP on arrival. Found to be in SVT, given IV push adenosine 6 mg and then 12 mg which reportedly terminated the arrhythmia. Later, the patient went into atrial fibrillation with RVR. He was given a Cardizem IV bolus and placed on a Cardizem infusion. Further workup including a chest x-ray showing cardiomegaly, pulmonary vascular congestion, and possible small left pleural effusion. He was given 80 mg of total IV Lasix in the ED. Labs including a CBC with a WBC count of 22.4, hemoglobin 15.2, platelets 244. CMP with a sodium of 141, potassium 5.5, chloride 94, serum bicarb 39, BUN 48, creatinine 1.85, glucose 119. Lactic 2.1. AST 1503, ALT 1178, ALP 129. [place]roponin 0[place] [id number]. D-dimer also was elevated has 7.3. Patient was previously systemically heparinized for the atrial fibrillation. Ultrasound of abdomen remarkable for dilated CBD measuring up to 7 mm in diameter. No evidence of obstructing stone. Patient is now being evaluated in intensive care unit. He remains on BiPAP with current settings 10/23 and FiO2 of 80%. He does wake up to verbal stimuli and has sustained awakening. BiPAP does make it difficult to communicate. Follow-up ABG with some improvement, done on FiO2 of 100% with a PaO2 of 153, pCO2 of 74, pH of 7.31. He does have lower extremity edema. He has an external urinary catheter, and there is 650 cc of urine collected. Continues on Cardizem at 10 mg/h. Also, systemically heparinized. Current rhythm appears to be normal sinus in the mid 70s beats per minute. Blood pressure is normotensive. He was previously empir ically covered on azithromycin and Rocephin. Afebrile. On 05/11/2025, the patient is being seen for a follow-up. On today's evaluation, the patient denies having any significant shortness of breath. He is currently on oxygen 6 L/min nasal cannula and BiPAP has been discontinued. IV fluids are currently at KVO. He is slightly delusional and he thinks that were causing more harm to his care in the ICU. He remains in atrial fibrillation. Cardizem drip is still running at 50 mg an hour and the patient remains on IV heparin. Blood cultures positive for coagulase-negative staph, likely contaminant. He seems to be less short of breath compared to yesterday. He is able to communicate. The white cell count is 15, improved compared to yesterday with hemoglobin 14.7 and a platelet count of 242. The patient's BUN is 58 with a creatinine of 1.1 and the creatinine is improved compared to yesterday. Serum bicarb is 46, sodium is 142 with a potassium level of 4 and a chloride of 91. His procalcitonin level is at 2.27. His UA was negative. A follow-up chest x- ray was done today and it shows COPD with some mild pulm vascular congestion. Left base underpenetrated and not well assessed. The patient remains on broad- spectrum antibiotics. The patient remains on a combination of Rocephin and and Zithromax. His echocardiogram was also completed and the patient has a normal ejection fraction of 55 to 60%. The patient has mild decrease in septal wall thickening, mild RV dilatation, mild PA pressures elevation. No significant valvular abnormalities. On 05/12/2025, the patient is being seen for a follow-up. The patient was having episodes of delirium and the patient was placed on Precedex and currently is off Precedex. He also experienced worsening shortness of breath and the patient was placed on BiPAP at a pressure of 12/6 with an FiO2 of 50%. Subsequently, he was taken off the BiPAP and the patient is currently on 5 L of oxygen nasal cannula. He remains atrial fibrillation. Cardizem drip is running at 2.5 mg an hour. The patient was unable to take his oral medication due to concerns of dysphagia. A modified barium swallow was also ordered. Fluid balance is +213 cc over the past 24 hours. He remains in atrial fibrillation and he does have some underlying tachycardia. The white cell count is at 10.9 with a heme of 13.8 and a platelet count of 177. Electrolytes show a sodium level of 138, bicarbonate 40, BUN 59 with a creatinine 0.8. Blood sugars at 170. The patient remains on DuoNeb updrafts. The patient remains on IV Rocephin and Zithromax. The patient remains on anticoagulation with Eliquis and the medication was going to be given to him with applesauce. He is also on Lopressor 25 mg twice a day. Remains on IV Solu-Medrol. Chest x-ray shows no acute abnormalities and is consistent with COPD. Modified barium swallow is to follow. On 05/13/2025, the patient is awake. He continues to have episodes of confusion and some paranoid ideations. Nevertheless, neurologically, he is exam is nonfocal and is able to move all 4 extremities without any limitations. Denies having any shortness of breath. He remains on oxygen 66/min nasal cannula. However, he is having difficulties with swallowing. The patient was seen by speech pathology and the patient underwent a modified barium swallow which she obviously failed and the patient was kept n.p.o. as the patient was noted to have aspiration. As such, the patient is not receiving any oral intake at this point. The patient's follow-up blood gases from today shows a pH of 7.49 with a PCO2 of 61 and pO2 of 77. Electrolytes show a sodium level of 137, potassium is at 4, bicarb is 43, BUN is 43 with a creatinine of 0.8. WBC count is at 9.2 with a hemoglobin of 14 and a platelet count of 195. The patient remains atrial fibrillation. Rate is controlled. The patient is currently off the Cardizem drip. Unfortunately, he has not been able to take his anticoagulants and he has not been able to take his beta-blockers. He remains on bronchodilators. He remains on IV Solu-Medrol 60 mg every 6 hours. The blood culture was positive for staph hominis. Vancomycin was added to the regimen and the patient remains on Rocephin. No agitation at this point. Will recommend another swallow evaluation on this patient. Will also order a CAT scan of the brain to rule out development of any stroke contributing to his ongoing dysphagia. 05/14/2025, the patient continues to have delusions and hallucinations. Occasional agitations. The patient has a sitter at the bedside and the patient is currently on Precedex running at 1.1 mcg/kg/h. The patient is unable to swallow. He does not aspirate. He has been kept n.p.o. for oral intake and medication. Meanwhile, he remains atrial fibrillation the patient is currently on Cardizem drip at 5 mg an hour for rate control. He is also on lactated Ringer at rate of 50 cc an hour. Chest x-ray findings are essentially unchanged. White cell count is 8.4, hemoglobin is 14.3 and a platelet of 169. Sodium is 134, potassium 3.9, BUN 36 with a creatinine 0.7. Serum bicarbonate 40. This morning, the patient is on oxygen at 3 L/min nasal cannula with a pulse ox of 95%. The patient underwent a CAT scan of the brain on 05/13/2025 and the findings are essentially nondiagnostic and it shows no acute abnormalities. The patient underwent a psychiatric evaluation today and the patient was found not to have any decision-making capacity. Guardianship is being established. In regards to his delirium, he will be started on Prolixin IM 3 mg twice a day for psychosis and agitation. History will be At the bedside. He will be kept n.p.o. for now. He remains on DuoNeb about treatments [id number]. He remains on IV Solu-Medrol. He remains on empiric antibiotic coverage with IV Rocephin. He is also on vancomycin and the patient's blood culture was positive for Staph hominis. Hemodynamically stable. No pressors for now. Objective - Vital Signs Vital signs: Vital Signs Temp 97.8 F 05/14/25 08:00 Pulse 86 05/14/25 08:33 Resp 19 05/14/25 08:00 BP 128/93 05/14/25 08:00 Pulse Ox 94 L 05/14/25 08:12 FiO2 50 05/14/25 00:47 Intake & Output 05/13/25 05/14/25 05/14/25 18:59 06:59 18:59 Intake Total 196.664 4114.326 140.096 Output Total 450 800 0 Balance 379.356 414.326 140.096 Weight 64.1 kg 63.8 kg Intake: IV 640 960 70 0.9NS 90 110 20 Lactated Ringers 1,000 ml 300 500 50 @ 50 mls/hr IV .Q20H [facility] Rx#:[id number] Vancomycin 1,250 mg In 250 250 Sodium Chloride 0.9% 250 ml @ 125 mls/hr IVPB ONCE ONE Rx#:[id number] cefTRIAXone 1 gm In 100 Sodium Chloride 0.9% 50 ml @ 100 mls/hr IVPB Q24H [facility] Rx#:[id number] Intake, IV Titration 189.356 254.326 70.096 Amount Dexmedetomidine/0.9% NaCl 176.106 204.868 70.096 (Pmx) 400 mcg In Empty Bag 1 bag @ 0.2 MCG/KG/HR 3.37 mls/hr IV .Q24H [facility] Rx#:[id number] Diltiazem 125 mg In 13.250 49.458 Dextrose 5% in Water 100 ml @ 5 MG/HR 5 mls/hr IV .Q24H [facility] Rx#:[id number] Output: Urine 450 800 0 Other: Voiding Method External Catheter External Catheter External Catheter # Voids 1 1 - Exam GENERAL EXAM: 64-year-old male, with sustained awakening, on 3 L of oxygen by nasal cannula. HEAD: Normocephalic and atraumatic EYES: Normal reaction of pupils, equal size. Anicteric sclera. NOSE: Clear with pink turbinates. THROAT: No erythema or exudates. NECK: No masses, no JVD. CHEST: No chest wall deformity. LUNGS: Equal air entry with diminished bibasilar lung sounds and minimal inspiratory crackles CVS: S1 and S2 normal with no audible murmur, irregular rhythm consistent with atrial fibrillation. No extra heart sounds ABDOMEN: No hepatosplenomegaly, active bowel sounds, no guarding or rigidity. Negative Zafar sign SPINE: Kyphoscoliosis SKIN: Bilateral venous stasis dermatitis, right anterior weeping wound with dressing CENTRAL NERVOUS SYSTEM: No focal deficits, tone is normal in all 4 extremities. EXTREMITIES: No significant edema lower extremities bilaterally.. No clubbing, or cyanosis. Peripheral pulses are intact. - Labs CBC & Chem 7: 05/14/25 04:38 05/14/25 04:33 Labs: Abnormal Lab Results - Last 24 Hours (Table) 05/13/25 05/13/25 05/13/25 Range/Units 05:20 11:15 16:18 Lymphocytes # (0.90-5.00) 10*3/uL Eosinophils # (0.04-0.35) 10*3/uL ABG pH 7.49 H (7.35-7.45) ABG pCO2 61 H (35-45) mmHg ABG pO2 77 L (83-108) mmHg ABG HCO3 46 H* (21-25) mmol/L ABG Total CO2 48 H (19-24) mmol/L Sodium (137-145) mmol/L Chloride (98-107) mmol/L Carbon Dioxide (22-30) mmol/L BUN (9-20) mg/dL Glucose (74-99) mg/dL POC Glucose (mg/dL) 156 H 142 H (70-110) mg/dL 05/14/25 05/14/25 Range/Units 04:33 04:38 Lymphocytes # 0.41 L (0.90-5.00) 10*3/uL Eosinophils # 0.00 L (0.04-0.35) 10*3/uL ABG pH (7.35-7.45) ABG pCO2 (35-45) mmHg ABG pO2 (83-108) mmHg ABG HCO3 (21-25) mmol/L ABG Total CO2 (19-24) mmol/L Sodium 134 L (137-145) mmol/L Chloride 88 L (98-107) mmol/L Carbon Dioxide 40 H (22-30) mmol/L BUN 36 H (9-20) mg/dL Glucose 165 H (74-99) mg/dL POC Glucose (mg/dL) (70-110) mg/dL Microbiology - Last 24 Hours (Table) 05/09/25 17:01 Blood Culture Gram Stain - Final Blood Blood Culture - Final Staphylococcus hominis Molecular ID Assessment and Plan Assessment: Acute hypoxemic and hypercapnic respiratory failure, requiring BiPAP, and this is consistent with COPD exacerbation and possibly with a component of mild CHF and the patient is currently off the BiPAP and 3 thirds of oxygen by nasal cannula. Patient remains off the BiPAP. The patient is currently on treatment of oxygen by nasal cannula. Chest x-ray findings are stable and there is no evidence of pneumonia or acute decompensated heart failure. Overall respiratory status remains stable. Tachyarrhythmias, reportedly initially in SVT and given 6 mg of adenosine followed by 12 mg of adenosine which converted the patient to normal sinus rhythm followed by atrial fibrillation with RVR, patient was loaded with IV Cardizem followed by titratable infusion. Current rhythm continues to be in atrial fibrillation the patient continues to be on Cardizem drip at 5 mg an hour. Oral medications and anticoagulations are currently on hold as the patient is n.p.o. and the patient is unable to swallow even his own medications. Suggest IV anticoagulation with heparin. Cardiology did not want any form of anticoagulants at this point. Acute leukocytosis, improved and the patient had a drop in the white cell count. Blood cultures positive for Staph hominis. Currently on a combination of Rocephin and vancomycin was also added to the regimen. Delirium, currently on Precedex and the patient is also seen by psychiatry. Acute kidney injury, creatinine is improved Lactic acidemia, improving Elevated D-dimer, systemically heparinized Transaminitis, Ultrasound of abdomen remarkable for dilated CBD measuring up to 7 mm in diameter. No evidence of obstructing stone. History of DVT/PE History of loculated left-sided pleural effusion with previous pigtail catheter History of alcohol abuse history of polysubstance abuse Chronic tobacco use Kyphoscoliosis Dysphagia, completed full speech evaluati failed a modified barium swallow and the patient remains n.p.o. the possibility of PEG tube insertion is being entertained Possible culture with Staph hominis Plan: Patient is currently on 3 L of oxygen by nasal cannula. Keep the patient off the BiPAP for now Continue DuoNebtreatments [id number] Continue IV Solu-Medrol And the patient is currently receiving Solu-Medrol 60 mg every 6 hours and this will be tapered down to 40 mg every 12. Patient is currently n.p.o. and IV fluids are in the form of lactated Ringer at rate of 50 cc an hour Continue Rocephin and vancomycin was added based on presence of Staph hominis in the blood No anticoagulants for now per cardiology Continue Cardizem drip for rate control, currently at 5 mg an hour Echocardiogram was noted and the patient has a preserved LV function with mild pulmonary hypertension Continue Pepcid Consider PEG tube insertion if the patient is unable to swallow and he continues to fail swallow evaluations. Prolixin 3 mg IM twice daily scheduled and 5 mg IM as needed for agitation. Monitor mental status Continue the rest of the supportive care. The patient will be kept in the ICU for now. Critical care evaluation was done and 32 minutes. Time with Patient: Greater than 30
[2025-05-14 16:09] LABS: Glucose,Whole Blood 146 mg/dL (70-110)
[2025-05-14] MEDS: methylPREDNISolone SOD SUCCI 40 MG/ML 1 ML VIAL IV SCH (21:20)
[2025-05-14 22:31] LABS: Glucose,Whole Blood 127 mg/dL (70-110)
--- NOTE | 2025-05-15 03:33 | PN ---
PROGRESS NOTE CHIEF COMPLAINT: Acute respiratory failure. HISTORY OF PRESENT ILLNESS: This gentleman is doing fairly well, but he is very agitated. Apparently, he is unable to pass a swallow evaluation and we are asking for General Surgery to do an assessment for PEG tube placement. PHYSICAL EXAMINATION: GENERAL: He is very agitated. He is quite hostile and uncooperative. CHEST: Demonstrates decreased breath sounds with scattered wheezing and occasional rales and rhonchi. CARDIAC: Sounds regular. ABDOMEN: Soft, nontender. IMPRESSION: 1. Acute respiratory failure. 2. Chronic obstructive pulmonary disease. 3. Atrial fibrillation. 4. Congestive heart failure. 5. Dysphagia. 6. Flexion contractures of the neck. 7. Edema and cellulitis of the lower extremities. PLAN: Continue current management in the intensive care unit, pending clearance by Intensive Medicine. He is also being evaluated for a PEG tube. MMMINGOL / IJN: [id number] /
[2025-05-15 06:09] LABS: Basophils # (A) 0.01 10*3/uL (0.00-0.10); Basophils % (A) 0.1 %; Eosinophils # (A) 0.00 10*3/uL (0.04-0.35); Eosinophils % (A) 0.0 %; HCT 45.4 % (39.6-50.0); HGB 15.1 g/dL (13.0-17.0); Lymphocytes # (A) 0.43 10*3/uL (0.90-5.00); Lymphocytes % (A) 4.0 %; MCH 31.1 pg (27.0-32.0); MCHC 33.3 g/dL (32.0-37.0); MCV 93.4 fL (80.0-97.0); Monocytes # (A) 0.47 10*3/uL (0.20-1.00); Monocytes % (A) 4.4 %; Neutrophils # (A) 9.79 10*3/uL (1.80-7.70); Neutrophils % (A) 91.2 %; Platelet Count 170 10*3/uL (140-440); RBC 4.86 10*6/uL (4.40-5.60); RDW 13.1 % (11.5-14.5); WBC 10.73 10*3/uL (4.50-10.00)
[2025-05-15 06:18] LABS: African American GFR (CKD) >90 (>60 ml/min/1.73 sqM); Anion Gap 2 mmol/L; Blood Urea Nitrogen 29 mg/dL (9-20); Calcium 8.5 mg/dL (8.4-10.2); Carbon Dioxide 38 mmol/L (22-30); Chloride 94 mmol/L (98-107); Glucose 148 mg/dL (74-99); Non-African American GFR(CKD) >90 (>60 ml/min/1.73 sqM); Potassium 3.9 mmol/L (3.5-5.1); Sodium 134 mmol/L (137-145)
[2025-05-15 06:51] LABS: Glucose,Whole Blood 174 mg/dL (70-110)
--- NOTE | 2025-05-15 07:21 | XR ---
EXAMINATION TYPE: XR chest 1V portable DATE OF EXAM: 05/15/2025 4:52 AM COMPARISON: Chest radiograph from one day prior. CLINICAL INDICATION: Male, 64 years old with history of Resp failure; [facility] TECHNIQUE: XR chest 1V portable Frontal view of the chest. FINDINGS: Lungs/Pleura: There is no evidence of pleural effusion, focal consolidation, or pneumothorax. Pulmonary vascularity: Pulmonary vascular congestion. Heart/mediastinum: Cardiomediastinal silhouette is enlarged. Musculoskeletal: No acute osseous pathology. Other findings: None IMPRESSION: Stable exam scattered reticular opacities [facility] Azucena Donaldson, , 05/15/2025 7:19 AM
[2025-05-15] MEDS: POTASSIUM CHLORIDE 10 MEQ in WATER FOR INJECTION 1 100ML.BAG IVPB SCH (08:09)
--- NOTE | 2025-05-15 09:51 | P.PN ---
Progress Note - Text Progress Note Date: 05/15/25 Patient apparently was given applesauce after not cooperating fully with the swallow evaluation yesterday. He tolerated that. Spoke with critical care team. No plans for PEG tube currently. Will sign off. Please reconsult if needed.
[2025-05-15 11:45] LABS: Glucose,Whole Blood 174 mg/dL (70-110)
--- NOTE | 2025-05-15 14:34 | P.PN ---
Subjective Progress Note Date: 05/15/25 Patient is a 64-year-old male with past medical history significant for COPD, DVT/PE, loculated left-sided pleural effusion, alcohol abuse, polysubstance abuse. Patient brought in by EMS yesterday evening. Reportedly, the patient is homeless. He was at a friend's house the previous day and noted to be increasingly confused and lethargic. When EMS arrived the patient's pulse ox was reportedly 59%. He was barely responsive, requiring BVM ventilation. The patient was not intubated. Transitioned to BiPAP on arrival. Found to be in SVT, given IV push adenosine 6 mg and then 12 mg which reportedly terminated the arrhythmia. Later, the patient went into atrial fibrillation with RVR. He was given a Cardizem IV bolus and placed on a Cardizem infusion. Further workup including a chest x-ray showing cardiomegaly, pulmonary vascular congestion, and possible small left pleural effusion. He was given 80 mg of total IV Lasix in the ED. Labs including a CBC with a WBC count of 22.4, hemoglobin 15.2, platelets 244. CMP with a sodium of 141, potassium 5.5, chloride 94, serum bicarb 39, BUN 48, creatinine 1.85, glucose 119. Lactic 2.1. AST 1503, ALT 1178, ALP 129. Troponin 0[place]12[place] [address]. D-dimer also was elevated has 7.3. Patient was previously systemically heparinized for the atrial fibrillation. Ultrasound of abdomen remarkable for dilated CBD measuring up to 7 mm in diameter. No evidence of obstructing stone. Patient is now being evaluated in intensive care unit. He remains on BiPAP with current settings 10/23 and FiO2 of 80%. He does wake up to verbal stimuli and has sustained awakening. BiPAP does make it difficult to communicate. Follow-up ABG with some improvement, done on FiO2 of 100% with a PaO2 of 153, pCO2 of 74, pH of 7.31. He does have lower extremity edema. He has an external urinary catheter, and there is 650 cc of urine collected. Continues on Cardizem at 10 mg/h. Also, systemically heparinized. Current rhythm appears to be normal sinus in the mid 70s beats per minute. Blood pressure is normotensive. He was previously empir ically covered on azithromycin and Rocephin. Afebrile. On 05/11/2025, the patient is being seen for a follow-up. On today's evaluation, the patient denies having any significant shortness of breath. He is currently on oxygen 6 L/min nasal cannula and BiPAP has been discontinued. IV fluids are currently at KVO. He is slightly delusional and he thinks that were causing more harm to his care in the ICU. He remains in atrial fibrillation. Cardizem drip is still running at 50 mg an hour and the patient remains on IV heparin. Blood cultures positive for coagulase-negative staph, likely contaminant. He seems to be less short of breath compared to yesterday. He is able to communicate. The white cell count is 15, improved compared to yesterday with hemoglobin 14.7 and a platelet count of 242. The patient's BUN is 58 with a creatinine of 1.1 and the creatinine is improved compared to yesterday. Serum bicarb is 46, sodium is 142 with a potassium level of 4 and a chloride of 91. His procalcitonin level is at 2.27. His UA was negative. A follow-up chest x- ray was done today and it shows COPD with some mild pulm vascular congestion. Left base underpenetrated and not well assessed. The patient remains on broad- spectrum antibiotics. The patient remains on a combination of Rocephin and and Zithromax. His echocardiogram was also completed and the patient has a normal ejection fraction of 55 to 60%. The patient has mild decrease in septal wall thickening, mild RV dilatation, mild PA pressures elevation. No significant valvular abnormalities. On 05/12/2025, the patient is being seen for a follow-up. The patient was having episodes of delirium and the patient was placed on Precedex and currently is off Precedex. He also experienced worsening shortness of breath and the patient was placed on BiPAP at a pressure of 12/6 with an FiO2 of 50%. Subsequently, he was taken off the BiPAP and the patient is currently on 5 L of oxygen nasal cannula. He remains atrial fibrillation. Cardizem drip is running at 2.5 mg an hour. The patient was unable to take his oral medication due to concerns of dysphagia. A modified barium swallow was also ordered. Fluid balance is +213 cc over the past 24 hours. He remains in atrial fibrillation and he does have some underlying tachycardia. The white cell count is at 10.9 with a heme of 13.8 and a platelet count of 177. Electrolytes show a sodium level of 138, bicarbonate 40, BUN 59 with a creatinine 0.8. Blood sugars at 170. The patient remains on DuoNeb updrafts. The patient remains on IV Rocephin and Zithromax. The patient remains on anticoagulation with Eliquis and the medication was going to be given to him with applesauce. He is also on Lopressor 25 mg twice a day. Remains on IV Solu-Medrol. Chest x-ray shows no acute abnormalities and is consistent with COPD. Modified barium swallow is to follow. On 05/13/2025, the patient is awake. He continues to have episodes of confusion and some paranoid ideations. Nevertheless, neurologically, he is exam is nonfocal and is able to move all 4 extremities without any limitations. Denies having any shortness of breath. He remains on oxygen 66/min nasal cannula. However, he is having difficulties with swallowing. The patient was seen by speech pathology and the patient underwent a modified barium swallow which she obviously failed and the patient was kept n.p.o. as the patient was noted to have aspiration. As such, the patient is not receiving any oral intake at this point. The patient's follow-up blood gases from today shows a pH of 7.49 with a PCO2 of 61 and pO2 of 77. Electrolytes show a sodium level of 137, potassium is at 4, bicarb is 43, BUN is 43 with a creatinine of 0.8. WBC count is at 9.2 with a hemoglobin of 14 and a platelet count of 195. The patient remains atrial fibrillation. Rate is controlled. The patient is currently off the Cardizem drip. Unfortunately, he has not been able to take his anticoagulants and he has not been able to take his beta-blockers. He remains on bronchodilators. He remains on IV Solu-Medrol 60 mg every 6 hours. The blood culture was positive for staph hominis. Vancomycin was added to the regimen and the patient remains on Rocephin. No agitation at this point. Will recommend another swallow evaluation on this patient. Will also order a CAT scan of the brain to rule out development of any stroke contributing to his ongoing dysphagia. 05/14/2025, the patient continues to have delusions and hallucinations. Occasional agitations. The patient has a sitter at the bedside and the patient is currently on Precedex running at 1.1 mcg/kg/h. The patient is unable to swallow. He does not aspirate. He has been kept n.p.o. for oral intake and medication. Meanwhile, he remains atrial fibrillation the patient is currently on Cardizem drip at 5 mg an hour for rate control. He is also on lactated Ringer at rate of 50 cc an hour. Chest x-ray findings are essentially unchanged. White cell count is 8.4, hemoglobin is 14.3 and a platelet of 169. Sodium is 134, potassium 3.9, BUN 36 with a creatinine 0.7. Serum bicarbonate 40. This morning, the patient is on oxygen at 3 L/min nasal cannula with a pulse ox of 95%. The patient underwent a CAT scan of the brain on 05/13/2025 and the findings are essentially nondiagnostic and it shows no acute abnormalities. The patient underwent a psychiatric evaluation today and the patient was found not to have any decision-making capacity. Guardianship is being established. In regards to his delirium, he will be started on Prolixin IM 3 mg twice a day for psychosis and agitation. History will be At the bedside. He will be kept n.p.o. for now. He remains on DuoNeb about treatments [id number]. He remains on IV Solu-Medrol. He remains on empiric antibiotic coverage with IV Rocephin. He is also on vancomycin and the patient's blood culture was positive for Staph hominis. Hemodynamically stable. No pressors for now. 05/15/2025, the patient is being seen for a follow-up. Awake and alert and communicating. Occasional delusions. No agitation. Sitter at the bedside. Neurologic exam is nonfocal. The patient remains on Precedex running at 1.2 mcg/kg/min. I personally performed a bedside swallow evaluation on this patient. The patient was able to swallow properly. He was given applesauce and he was able to feed himself without any major difficulties. No cough during the swallow process. No significant shortness of breath. The patient remains on lactated Ringer at rate of 50 cc an hour. Currently is on 40 Suboxone by nasal cannula. Remains in atrial fibrillation. Cardizem is running at 10 mg an hour. Hemodynamically stable. No pressors. The white cell count at 10.7 with a hemoglobin 15.1 and the platelet count of 170. BUN is 29 with a creatinine of 0.66. Sodium is at 134 and potassium level is at 3.9. Remains on DuoNeb nebulized treatments [id number]. Remains on IV Solu-Medrol 40 mg every 12 hours. Remains on Cardizem drip and the patient will be started on metoprolol for rate control at a dose of 50 mg p.o. twice a day. The patient will be also restarted back on his routine oral medications. Will keep anticoagulation on hold for now. In terms of antibiotic coverage, the patient remains on a combination of Rocephin and vancomycin. Objective - Vital Signs Vital signs: Vital Signs Temp 98.3 F 05/15/25 00:00 Pulse 86 05/15/25 07:00 Resp 13 05/15/25 07:00 BP 116/90 05/15/25 07:00 Pulse Ox 96 05/15/25 07:00 FiO2 50 05/14/25 00:47 Intake & Output 05/14/25 05/15/25 05/15/25 18:59 06:59 18:59 Intake Total 870.239 5459.609 60 Output Total 700 600 0 Balance 234.500 500.609 60 Weight 63.8 kg 66.2 kg Intake: IV 670 720 60 0.9NS 120 120 10 Lactated Ringers 1,000 ml 550 600 50 @ 50 mls/hr IV .Q20H [facility] Rx#:[id number] Intake, IV Titration 264.500 380.609 Amount Dexmedetomidine/0.9% NaCl 200.000 258.109 (Pmx) 400 mcg In Empty Bag 1 bag @ 0.2 MCG/KG/HR 3.37 mls/hr IV .Q24H [facility] Rx#:[id number] Diltiazem 125 mg In 64.5 122.5 Dextrose 5% in Water 100 ml @ 5 MG/HR 5 mls/hr IV .Q24H [facility] Rx#:[id number] Output: Urine 700 600 0 Other: Voiding Method External Catheter External Catheter # Voids 0 0 - Exam GENERAL EXAM: 64-year-old male, awake and alert and communicating, on 3 L of o xygen by nasal cannula. The patient remains on Precedex. HEAD: Normocephalic and atraumatic EYES: Normal reaction of pupils, equal size. Anicteric sclera. NOSE: Clear with pink turbinates. THROAT: No erythema or exudates. NECK: No masses, no JVD. CHEST: No chest wall deformity. LUNGS: Equal air entry with diminished bibasilar lung sounds and minimal inspiratory crackles CVS: S1 and S2 normal with no audible murmur, irregular rhythm consistent with atrial fibrillation. No extra heart sounds ABDOMEN: No hepatosplenomegaly, active bowel sounds, no guarding or rigidity. Negative Zafar sign SPINE: Kyphoscoliosis SKIN: Bilateral venous stasis dermatitis, right anterior weeping wound with dressing CENTRAL NERVOUS SYSTEM: No focal deficits, tone is normal in all 4 extremities. EXTREMITIES: No significant edema lower extremities bilaterally.. No clubbing, or cyanosis. Peripheral pulses are intact. - Labs CBC & Chem 7: 05/15/25 05:22 05/15/25 05:22 Labs: Abnormal Lab Results - Last 24 Hours (Table) 05/14/25 05/14/25 05/15/25 Range/Units 16:06 22:29 05:22 WBC 10.73 H (4.50-10.00) 10*3/uL Neutrophils # 9.79 H (1.80-7.70) 10*3/uL Lymphocytes # 0.43 L (0.90-5.00) 10*3/uL Eosinophils # 0.00 L (0.04-0.35) 10*3/uL Sodium (137-145) mmol/L Chloride (98-107) mmol/L Carbon Dioxide (22-30) mmol/L BUN (9-20) mg/dL Glucose (74-99) mg/dL POC Glucose (mg/dL) 146 H 127 H (70-110) mg/dL 05/15/25 05/15/25 Range/Units 05:22 06:49 WBC (4.50-10.00) 10*3/uL Neutrophils # (1.80-7.70) 10*3/uL Lymphocytes # (0.90-5.00) 10*3/uL Eosinophils # (0.04-0.35) 10*3/uL Sodium 134 L (137-145) mmol/L Chloride 94 L (98-107) mmol/L Carbon Dioxide 38 H (22-30) mmol/L BUN 29 H (9-20) mg/dL Glucose 148 H (74-99) mg/dL POC Glucose (mg/dL) 174 H (70-110) mg/dL Assessment and Plan Assessment: Acute hypoxemic and hypercapnic respiratory failure, requiring BiPAP, and this is consistent with COPD exacerbation and possibly with a component of mild CHF and the patient is currently off the BiPAP and 3 liters of oxygen by nasal cannula. Patient remains off the BiPAP. Chest x-ray findings are stable Tachyarrhythmias, reportedly initially in SVT and given 6 mg of adenosine followed by 12 mg of adenosine which converted the patient to normal sinus rhy thm followed by atrial fibrillation with RVR, patient was loaded with IV Cardizem followed by titratable infusion. Current rhythm continues to be in atrial fibrillation the patient continues to be on Cardizem drip at 10 mg an hour. No anticoagulants for now. Acute leukocytosis, improved and the patient had a drop in the white cell count. Blood cultures positive for Staph hominis. Currently on a combination of Rocephin and vancomycin was also added to the regimen. Delirium, currently on Precedex and the patient is also seen by psychiatry. The patient remains on low-dose Precedex Acute kidney injury, creatinine is improved Lactic acidemia, improving Elevated D-dimer, systemically heparinized Transaminitis, Ultrasound of abdomen remarkable for dilated CBD measuring up to 7 mm in diameter. No evidence of obstructing stone. History of DVT/PE History of loculated left-sided pleural effusion with previous pigtail catheter History of alcohol abuse history of polysubstance abuse Chronic tobacco use Kyphoscoliosis Dysphagia, completed full speech evaluati failed a modified barium swallow and the patient remains n.p.o. the possibility of PEG tube insertion is being entertained Staph hominis in the blood was a positive blood culture. Plan: Patient is currently on 3 L of oxygen by nasal cannula. Wean off Precedex and discontinue Continue DuoNebtreatments [id number] Continue IV Solu-Medrol 40 mg every 12. Patient is on lactated Ringer at rate of 50 cc an hour I evaluated the patient swallow at the bedside. The patient swallow was felt to be appropriate. Based on that, the patient will be given soft diet and his medications to be resumed. Continue Rocephin and vancomycin was added based on presence of Staph hominis in the blood No anticoagulants for now per cardiology Continue Cardizem drip for rate control, currently at 10 mg an hour, restart me toprolol and gradual wean after Cardizem drip. Echocardiogram was noted and the patient has a preserved LV function with mild pulmonary hypertension Continue Pepcid No need for PEG tube at this point Patient is not competent to make his own decisions and guardianship is to be established at a later stage Prolixin 3 mg IM twice daily scheduled and 5 mg IM as needed for agitation. Monitor mental status Continue the rest of the supportive care. The patient will be kept in the ICU for now. Critical care evaluation was done and 32 minutes. Time with Patient: Greater than 30
[2025-05-15 16:07] LABS: African American GFR (CKD) >90 (>60 ml/min/1.73 sqM); Non-African American GFR(CKD) >90 (>60 ml/min/1.73 sqM)
[2025-05-15 16:18] LABS: Glucose,Whole Blood 147 mg/dL (70-110)
[2025-05-15] MEDS: VANCOMYCIN TROUGH DUE 1 EACH MISC MISCELLANE ONE (17:27)
--- NOTE | 2025-05-15 17:35 | P.CN ---
Psychiatric Consult - . Consult date: 05/15/25 Consult:: 05/15/25 17:31OBJECTIVE: He has pressured speech and rambling content on how he will be suing everyone and does not need to be here. He reacted to the air pressure mattress pump turning on and off in a paranoid way that someone was doing it to harrass him. He wonders if people around him are actually alive. MENTAL STATUS EXAM: General Appearance: Patient appears to be thin, shaved head, stated age is alert, irritable and agitated at times unpredictable. Patient appears to have poor hygiene and grooming wearing hospital gown with poor eye contact. Behavior: Patient is lying in bed, is irritable at times and unpredictable Speech: Patient's speech is disorganized, impaired Mood/Affect: Patient reports their mood is "ok", affect is congruent and constricted Suicidality/Homicidality: Patient denies having any suicidal or homicidal ideation intent or plan. Perceptions: Patient denies any visual hallucinations and denies any auditory hallucinations Though content/process: n concrete, poverty of content. Poor historian. D elusional and paranoid Memory and concentration: AOX3, fair attention span, poor reality testing. Cannot spell "WORLD" backwards Judgment and insight: Poor/impulsive IMPRESSIONS: Psychosis unspecified, likely schizophrenia Noncompliance with medications He is unable to care for self and unable to understand his needs and problems PLAN: -At this time patient DOES NOT meet criteria for inpatient psychiatric admission due to patient having several medical comorbidities requiring treatment. -Patient DOES NOT have decision making capacity at this time and is unable to reason through and communicate/appreciate the risks, benefits and alternatives to treatment. -Delirium precautions recommended with patient including - avoiding use of narcotics and ENVIRONMENTAL AIDE sedatives, limit anticholinergic medications when possible, frequent re-orientation, minimize use of restraints, open window shades during the day and close them at night -Would recommend the following medication changes/additions: Start Prolixin IM 3 mg twice daily for psychosis/agitation, this can be titrated as needed and also can be transition onto long-acting injection if patient agrees and is improving. Prolixin every 6 hours IM as needed for severe agitation, Ativan IM every 6 hours as needed for agitation. Patient has not able to receive p.o. medications at this time due to nonpassing swallow evaluation. Awaiting PEG tube placement. -CIWA protocol with PRN Ativan for alcohol withdrawal. Continue to monitor vital signs. This can be discontinued in the next day or so as patient has likely been off etoh past the withdrawal window -Continue 1:1 sitter for safety -table worker packager to provide patient with outpatient mental health/psychiatry resources for appropriate follow up upon discharge -Motion Designer spoke with patient about substance abuse and the harmful effects on medical and mental health, patient verbally understood and agreed. -Communicated plan to patient's nurse -Will continue to follow along as needed -Please contact with any questions.
[2025-05-15 17:43] LABS: T4, Free (Free Thyroxine) 1.63 ng/dL (0.78-2.19)
[2025-05-15 22:51] LABS: Glucose,Whole Blood 97 mg/dL (70-110)
[2025-05-16] MEDS: VANCOMYCIN 1,250 MG in SODIUM CHLORIDE 0.9% 250 ML IVPB SCH (01:07)
[2025-05-16 05:57] LABS: Glucose,Whole Blood 121 mg/dL (70-110)
[2025-05-16 06:44] LABS: Basophils # (A) 0.01 10*3/uL (0.00-0.10); Basophils % (A) 0.1 %; Eosinophils # (A) 0.00 10*3/uL (0.04-0.35); Eosinophils % (A) 0.0 %; HCT 46.4 % (39.6-50.0); HGB 15.1 g/dL (13.0-17.0); Lymphocytes # (A) 0.47 10*3/uL (0.90-5.00); Lymphocytes % (A) 3.6 %; MCH 30.0 pg (27.0-32.0); MCHC 32.5 g/dL (32.0-37.0); MCV 92.2 fL (80.0-97.0); Monocytes # (A) 0.36 10*3/uL (0.20-1.00); Monocytes % (A) 2.8 %; Neutrophils # (A) 12.18 10*3/uL (1.80-7.70); Neutrophils % (A) 93.1 %; Platelet Count 163 10*3/uL (140-440); RBC 5.03 10*6/uL (4.40-5.60); RDW 13.1 % (11.5-14.5); WBC 13.07 10*3/uL (4.50-10.00)
[2025-05-16 07:00] LABS: African American GFR (CKD) >90 (>60 ml/min/1.73 sqM); Anion Gap 3 mmol/L; Blood Urea Nitrogen 31 mg/dL (9-20); Calcium 8.4 mg/dL (8.4-10.2); Carbon Dioxide 34 mmol/L (22-30); Chloride 96 mmol/L (98-107); Glucose 138 mg/dL (74-99); Non-African American GFR(CKD) >90 (>60 ml/min/1.73 sqM); Potassium 4.0 mmol/L (3.5-5.1); Sodium 133 mmol/L (137-145)
--- NOTE | 2025-05-16 07:02 | XR ---
EXAMINATION TYPE: XR chest 1V portable DATE OF EXAM: 05/16/2025 5:16 AM COMPARISON: Chest radiograph from one day prior. CLINICAL INDICATION: Male, 64 years old with history of CHF; [facility] TECHNIQUE: XR chest 1V portable Frontal view of the chest. FINDINGS: Lungs/Pleura: Scattered subtle reticular and hazy opacities. No evidence of pneumothorax, focal conso lidation or pleural effusion. Pulmonary vascularity: Pulmonary vascular congestion. Heart/mediastinum: Cardiomediastinal silhouette is enlarged. Musculoskeletal: No acute osseous pathology. Left clavicle fixation hardware is intact. Other findings: None IMPRESSION: Stable exam scattered reticular opacities [facility], , 05/16/2025 7:00 AM
[2025-05-16] MEDS: BUPRENORPHINE-NALOX 8-2 MG TAB 1 EACH TAB.SUBL SL SCH (09:50)
[2025-05-16 11:58] LABS: Glucose,Whole Blood 119 mg/dL (70-110)
--- NOTE | 2025-05-16 13:59 | PN ---
PROGRESS NOTE DATE OF SERVICE: 05/15/2025 CHIEF COMPLAINT: Acute respiratory failure and congestive heart failure. HISTORY OF PRESENT ILLNESS: This gentleman's condition remains about the same. He is still very dyspneic. PHYSICAL EXAMINATION: LUNGS: Breath sounds are poor. CARDIAC: Unchanged. He sounds as though he is in atrial fibrillation. ABDOMEN: Soft, nontender. IMPRESSION: 1. Acute respiratory failure. 2. Chronic obstructive pulmonary disease. 3. Congestive heart failure. 4. Flexion contracture of the neck. 5. Inability to swallow. PLAN: 1. Continue with pulmonary management. 2. Consider for PEG tube placement 1st of the week. 3. Follow psychiatrist recommendations. 4. Discharge planning. MMODL / IJN: [id number] /
[2025-05-16] MEDS: NICOTINE 21MG/24HR PATCH TRANSDERM PRN (14:18)
--- NOTE | 2025-05-16 16:03 | P.PN ---
Subjective Progress Note Date: 05/16/25 Patient is a 64-year-old male with past medical history significant for COPD, DVT/PE, loculated left-sided pleural effusion, alcohol abuse, polysubstance abuse. Patient brought in by EMS yesterday evening. Reportedly, the patient is homeless. He was at a friend's house the previous day and noted to be increasingly confused and lethargic. When EMS arrived the patient's pulse ox was reportedly 59%. He was barely responsive, requiring BVM ventilation. The patient was not intubated. Transitioned to BiPAP on arrival. Found to be in SVT, given IV push adenosine 6 mg and then 12 mg which reportedly terminated the arrhythmia. Later, the patient went into atrial fibrillation with RVR. He was given a Cardizem IV bolus and placed on a Cardizem infusion. Further workup including a chest x-ray showing cardiomegaly, pulmonary vascular congestion, and possible small left pleural effusion. He was given 80 mg of total IV Lasix in the ED. Labs including a CBC with a WBC count of 22.4, hemoglobin 15.2, platelets 244. CMP with a sodium of 141, potassium 5.5, chloride 94, serum bicarb 39, BUN 48, creatinine 1.85, glucose 119. Lactic 2.1. AST 1503, ALT 1178, ALP 129. Troponin 0[place] [address]. D-dimer also was elevated has 7.3. Patient was previously systemically heparinized for the atrial fibrillation. Ultrasound of abdomen remarkable for dilated CBD measuring up to 7 mm in diameter. No evidence of obstructing stone. Patient is now being evaluated in intensive care unit. He remains on BiPAP with current settings 10/23 and FiO2 of 80%. He does wake up to verbal stimuli and has sustained awakening. BiPAP does make it difficult to communicate. Follow-up ABG with some improvement, done on FiO2 of 100% with a PaO2 of 153, pCO2 of 74, pH of 7.31. He does have lower extremity edema. He has an external urinary catheter, and there is 650 cc of urine collected. Continues on Cardizem at 10 mg/h. Also, systemically heparinized. Current rhythm appears to be normal sinus in the mid 70s beats per minute. Blood pressure is normotensive. He was previously empir ically covered on azithromycin and Rocephin. Afebrile. On 05/11/2025, the patient is being seen for a follow-up. On today's evaluation, the patient denies having any significant shortness of breath. He is currently on oxygen 6 L/min nasal cannula and BiPAP has been discontinued. IV fluids are currently at KVO. He is slightly delusional and he thinks that were causing more harm to his care in the ICU. He remains in atrial fibrillation. Cardizem drip is still running at 50 mg an hour and the patient remains on IV heparin. Blood cultures positive for coagulase-negative staph, likely contaminant. He seems to be less short of breath compared to yesterday. He is able to communicate. The white cell count is 15, improved compared to yesterday with hemoglobin 14.7 and a platelet count of 242. The patient's BUN is 58 with a creatinine of 1.1 and the creatinine is improved compared to yesterday. Serum bicarb is 46, sodium is 142 with a potassium level of 4 and a chloride of 91. His procalcitonin level is at 2.27. His UA was negative. A follow-up chest x- ray was done today and it shows COPD with some mild pulm vascular congestion. Left base underpenetrated and not well assessed. The patient remains on broad- spectrum antibiotics. The patient remains on a combination of Rocephin and and Zithromax. His echocardiogram was also completed and the patient has a normal ejection fraction of 55 to 60%. The patient has mild decrease in septal wall thickening, mild RV dilatation, mild PA pressures elevation. No significant valvular abnormalities. On 05/12/2025, the patient is being seen for a follow-up. The patient was having episodes of delirium and the patient was placed on Precedex and currently is off Precedex. He also experienced worsening shortness of breath and the patient was placed on BiPAP at a pressure of 12/6 with an FiO2 of 50%. Subsequently, he was taken off the BiPAP and the patient is currently on 5 L of oxygen nasal cannula. He remains atrial fibrillation. Cardizem drip is running at 2.5 mg an hour. The patient was unable to take his oral medication due to concerns of dysphagia. A modified barium swallow was also ordered. Fluid balance is +213 cc over the past 24 hours. He remains in atrial fibrillation and he does have some underlying tachycardia. The white cell count is at 10.9 with a heme of 13.8 and a platelet count of 177. Electrolytes show a sodium level of 138, bicarbonate 40, BUN 59 with a creatinine 0.8. Blood sugars at 170. The patient remains on DuoNeb updrafts. The patient remains on IV Rocephin and Zithromax. The patient remains on anticoagulation with Eliquis and the medication was going to be given to him with applesauce. He is also on Lopressor 25 mg twice a day. Remains on IV Solu-Medrol. Chest x-ray shows no acute abnormalities and is consistent with COPD. Modified barium swallow is to follow. On 05/13/2025, the patient is awake. He continues to have episodes of confusion and some paranoid ideations. Nevertheless, neurologically, he is exam is nonfocal and is able to move all 4 extremities without any limitations. Denies having any shortness of breath. He remains on oxygen 66/min nasal cannula. However, he is having difficulties with swallowing. The patient was seen by speech pathology and the patient underwent a modified barium swallow which she obviously failed and the patient was kept n.p.o. as the patient was noted to have aspiration. As such, the patient is not receiving any oral intake at this point. The patient's follow-up blood gases from today shows a pH of 7.49 with a PCO2 of 61 and pO2 of 77. Electrolytes show a sodium level of 137, potassium is at 4, bicarb is 43, BUN is 43 with a creatinine of 0.8. WBC count is at 9.2 with a hemoglobin of 14 and a platelet count of 195. The patient remains atrial fibrillation. Rate is controlled. The patient is currently off the Cardizem drip. Unfortunately, he has not been able to take his anticoagulants and he has not been able to take his beta-blockers. He remains on bronchodilators. He remains on IV Solu-Medrol 60 mg every 6 hours. The blood culture was positive for staph hominis. Vancomycin was added to the regimen and the patient remains on Rocephin. No agitation at this point. Will recommend another swallow evaluation on this patient. Will also order a CAT scan of the brain to rule out development of any stroke contributing to his ongoing dysphagia. 05/14/2025, the patient continues to have delusions and hallucinations. Occasional agitations. The patient has a sitter at the bedside and the patient is currently on Precedex running at 1.1 mcg/kg/h. The patient is unable to swallow. He does not aspirate. He has been kept n.p.o. for oral intake and medication. Meanwhile, he remains atrial fibrillation the patient is currently on Cardizem drip at 5 mg an hour for rate control. He is also on lactated Ringer at rate of 50 cc an hour. Chest x-ray findings are essentially unchanged. White cell count is 8.4, hemoglobin is 14.3 and a platelet of 169. Sodium is 134, potassium 3.9, BUN 36 with a creatinine 0.7. Serum bicarbonate 40. This morning, the patient is on oxygen at 3 L/min nasal cannula with a pulse ox of 95%. The patient underwent a CAT scan of the brain on 05/13/2025 and the findings are essentially nondiagnostic and it shows no acute abnormalities. The patient underwent a psychiatric evaluation today and the patient was found not to have any decision-making capacity. Guardianship is being established. In regards to his delirium, he will be started on Prolixin IM 3 mg twice a day for psychosis and agitation. History will be At the bedside. He will be kept n.p.o. for now. He remains on DuoNeb about treatments [id number]. He remains on IV Solu-Medrol. He remains on empiric antibiotic coverage with IV Rocephin. He is also on vancomycin and the patient's blood culture was positive for Staph hominis. Hemodynamically stable. No pressors for now. 05/15/2025, the patient is being seen for a follow-up. Awake and alert and communicating. Occasional delusions. No agitation. Sitter at the bedside. Neurologic exam is nonfocal. The patient remains on Precedex running at 1.2 mcg/kg/min. I personally performed a bedside swallow evaluation on this patient. The patient was able to swallow properly. He was given applesauce and he was able to feed himself without any major difficulties. No cough during the swallow process. No significant shortness of breath. The patient remains on lactated Ringer at rate of 50 cc an hour. Currently is on 40 Suboxone by nasal cannula. Remains in atrial fibrillation. Cardizem is running at 10 mg an hour. Hemodynamically stable. No pressors. The white cell count at 10.7 with a hemoglobin 15.1 and the platelet count of 170. BUN is 29 with a creatinine of 0.66. Sodium is at 134 and potassium level is at 3.9. Remains on DuoNeb nebulized treatments [id number]. Remains on IV Solu-Medrol 40 mg every 12 hours. Remains on Cardizem drip and the patient will be started on metoprolol for rate control at a dose of 50 mg p.o. twice a day. The patient will be also restarted back on his routine oral medications. Will keep anticoagulation on hold for now. In terms of antibiotic coverage, the patient remains on a combination of Rocephin and vancomycin. On 05/16/2025, the patient remains on Precedex and this has been weaned down to 0.8 mcg/kg/min. This being used to control his agitation and the patient seems to be less paranoid. He is very reasonable in his discussions today. He is able to answer questions and follow commands without any focal neurological deficits. In addition, the patient is able to swallow. Overnight, he was on a BiPAP pressure of 12 or 6 cm of water with an FiO2 of 60% and currently he is on 40 Suboxone by nasal cannula. He remains in atrial fibrillation. Cardizem drip has been discontinued and the patient is currently on metoprolol 50 mg p.o. twice daily. Will not use anticoagulants based on his condition and comorbidities. No other complaints otherwise for now. His blood work shows a white cell count of 13, hemoglobin is 15.1 and a platelet count of 163. Sodium is at 133, potassium is at 4, bicarb is at 34, BUN 31 with a creatinine of 0.6. Afebrile. No significant agitation. Antibiotic coverage remains a combination of Rocephin and vancomycin. Objective - Vital Signs Vital signs: Vital Signs Temp 97.4 F L 05/16/25 09:00 Pulse 80 05/16/25 09:00 Resp 13 05/16/25 09:00 BP 122/93 05/16/25 09:00 Pulse Ox 91 L 05/16/25 09:00 FiO2 50 05/16/25 08:00 Intake & Output 05/15/25 05/16/25 05/16/25 18:59 06:59 18:59 Intake Total 154.073 5899.544 180 Output Total 535 600 0 Balance 330.000 477.544 180 Weight 67.9 kg Intake: IV 640 820 180 0.9NS 90 120 30 Lactated Ringers 1,000 ml 550 450 150 @ 50 mls/hr IV .Q20H [facility] Rx#:[id number] Vancomycin 1,250 mg In 250 Sodium Chloride 0.9% 250 ml @ 125 mls/hr IVPB ONCE ONE Rx#:[id number] Intake, IV Titration 225.000 257.544 Amount Dexmedetomidine/0.9% NaCl 100.000 256.711 (Pmx) 400 mcg In Empty Bag 1 bag @ 0.2 MCG/KG/HR 3.37 mls/hr IV .Q24H [facility] Rx#:[id number] Diltiazem 125 mg In 125 0.833 Dextrose 5% in Water 100 ml @ 5 MG/HR 5 mls/hr IV .Q24H [facility] Rx#:[id number] Output: Urine 535 600 0 Other: Voiding Method External Catheter External Catheter # Voids 0 - Exam GENERAL EXAM: 64-year-old male, awake and alert and communicating, on 4 L of oxygen by nasal cannula. The patient remains on Precedex. HEAD: Normocephalic and atraumatic EYES: Normal reaction of pupils, equal size. Anicteric sclera. NOSE: Clear with pink turbinates. THROAT: No erythema or exudates. NECK: No masses, no JVD. CHEST: No chest wall deformity. LUNGS: Equal air entry with diminished bibasilar lung sounds and minimal inspiratory crackles CVS: S1 and S2 normal with no audible murmur, irregular rhythm consistent with atrial fibrillation. No extra heart sounds ABDOMEN: No hepatosplenomegaly, active bowel sounds, no guarding or rigidity. Negative Zafar sign SPINE: Kyphoscoliosis SKIN: Bilateral venous stasis dermatitis, right anterior weeping wound with dressing CENTRAL NERVOUS SYSTEM: No focal deficits, tone is normal in all 4 extremities. Remains on Precedex to control the agitation. EXTREMITIES: No significant edema lower extremities bilaterally.. No clubbing, or cyanosis. Peripheral pulses are intact. - Labs CBC & Chem 7: 05/16/25 05:51 05/16/25 05:51 Labs: Abnormal Lab Results - Last 24 Hours (Table) 05/15/25 05/15/25 05/15/25 Range/Units 11:44 15:41 16:16 WBC (4.50-10.00) 10*3/uL Immature Gran # (0.00-0.04) 10*3/uL Neutrophils # (1.80-7.70) 10*3/uL Lymphocytes # (0.90-5.00) 10*3/uL Eosinophils # (0.04-0.35) 10*3/uL Sodium (137-145) mmol/L Chloride (98-107) mmol/L Carbon Dioxide (22-30) mmol/L BUN (9-20) mg/dL Creatinine 0.54 L (0.66-1.25) mg/dL Glucose (74-99) mg/dL POC Glucose (mg/dL) 174 H 147 H (70-110) mg/dL TSH 0.152 L (0.465-4.680) mIU/L 05/16/25 05/16/25 05/16/25 Range/Units 05:51 05:51 05:55 WBC 13.07 H (4.50-10.00) 10*3/uL Immature Gran # 0.05 H (0.00-0.04) 10*3/uL Neutrophils # 12.18 H (1.80-7.70) 10*3/uL Lymphocytes # 0.47 L (0.90-5.00) 10*3/uL Eosinophils # 0.00 L (0.04-0.35) 10*3/uL Sodium 133 L (137-145) mmol/L Chloride 96 L (98-107) mmol/L Carbon Dioxide 34 H (22-30) mmol/L BUN 31 H (9-20) mg/dL Creatinine 0.63 L (0.66-1.25) mg/dL Glucose 138 H (74-99) mg/dL POC Glucose (mg/dL) 121 H (70-110) mg/dL TSH (0.465-4.680) mIU/L Assessment and Plan Assessment: Acute hypoxemic and hypercapnic respiratory failure, requiring BiPAP, and this is consistent with COPD exacerbation and possibly with a component of mild CHF and the patient is currently off the BiPAP and for lliters of oxygen by nasal cannula. Patient remains off the BiPAP. Chest x-ray findings are stable, and the patient utilizing BiPAP overnight. Tachyarrhythmias, reportedly initially in SVT and given 6 mg of adenosine followed by 12 mg of adenosine which converted the patient to normal sinus rhythm followed by atrial fibrillation with RVR, patient was loaded with IV Cardizem followed by titratable infusion. Current rhythm continues to be in atrial fibrillation the patient continues to be on metoprolol 50 mg p.o. twice daily. The patient is currently off Cardizem drip. No anticoagulants are being utilized. Acute leukocytosis, improved and the patient had a drop in the white cell count. Blood cultures positive for Staph hominis. Currently on a combination of Rocephin and vancomycin was also added to the regimen. Delirium, currently on Precedex and the patient is also seen by psychiatry. The patient remains on Precedex running at 0.8 mcg/kg/min. Acute kidney injury, creatinine is improved Lactic acidemia, improving Elevated D-dimer, systemically heparinized Transaminitis, Ultrasound of abdomen remarkable for dilated CBD measuring up to 7 mm in diameter. No evidence of obstructing stone. History of DVT/PE History of loculated left-sided pleural effusion with previous pigtail catheter History of alcohol abuse history of polysubstance abuse Chronic tobacco use Kyphoscoliosis Dysphagia, completed full speech evaluati failed a modified barium swallow and the patient remains n.p.o. the possibility of PEG tube insertion is being entertained Staph hominis in the blood was a positive blood culture. Plan: Patient is currently on 4 L of oxygen by nasal cannula. Wean off Precedex and discontinue, meanwhile, the patient will be started on Suboxone 8 mg / 2 mg 1 tablet a day. Continue DuoNebtreatments [id number] Discontinue IV Solu-Medrol start the patient on prednisone burst taper. Patient is on lactated Ringer at rate of 50 cc an hour Swallow is adequate. Continue watching this patient for any episodes of aspiration. Continue Rocephin and vancomycin was added based on presence of Staph hominis in the blood No anticoagulants for now per cardiology Continue metoprolol 50 mg p.o. twice daily for rate control. Patient is currently off Cardizem drip. No anticoagulants will be utilized. Echocardiogram was noted and the patient has a preserved LV function with mild pulmonary hypertension Continue Pepcid No need for PEG tube at this point Patient is not competent to make his own decisions and guardianship is to be established at a later stage Prolixin 3 mg IM twice daily scheduled and 5 mg IM as needed for agitation. Monitor mental status Continue the rest of the supportive care. The patient will be kept in the ICU for now as long as he is still Precedex dependent. Critical care evaluation was done and 32 minutes. Time with Patient: Greater than 30
[2025-05-16 16:26] LABS: Glucose,Whole Blood 86 mg/dL (70-110)
[2025-05-16] MEDS: DILTIAZEM ORAL 60 MG TAB PO SCH (17:57)
[2025-05-16 20:40] LABS: Glucose,Whole Blood 235 mg/dL (70-110)
[2025-05-16 20:42] LABS: Glucose,Whole Blood 186 mg/dL (70-110)
--- NOTE | 2025-05-16 23:26 | PN ---
PROGRESS NOTE DATE OF SERVICE: 05/16/2025 CHIEF COMPLAINT: Acute respiratory failure and acute congestive heart failure. HISTORY OF PRESENT ILLNESS: This gentleman is doing fairly well, but complaining about everything as usual. It was thought that he might need a PEG tube, but apparently is eating. He is not a good candidate for PEG tube. He would most certainly pull it out. Decision has been made to go ahead and feed him despite any risk for aspiration. PHYSICAL EXAMINATION: CHEST: Clear. CARDIAC: Unremarkable. ABDOMEN: Soft. VITAL SIGNS: Normal. IMPRESSION: 1. Acute respiratory failure. 2. Acute congestive heart failure. 3. Chronic obstructive pulmonary disease. 4. Cervical spine flexion contracture. 5. Dysphagia. 6. Cellulitis on lower extremities. 7. Personality disorder. PLAN: Continue with current program and probably move him out of the ICU once he is more stable. AMAIRANI / ELAINE: [id number] /
[2025-05-17 05:57] LABS: Basophils # (A) 0.02 10*3/uL (0.00-0.10); Basophils % (A) 0.1 %; Eosinophils # (A) 0.00 10*3/uL (0.04-0.35); Eosinophils % (A) 0.0 %; HCT 41.8 % (39.6-50.0); HGB 13.9 g/dL (13.0-17.0); Lymphocytes # (A) 0.99 10*3/uL (0.90-5.00); Lymphocytes % (A) 5.2 %; MCH 30.9 pg (27.0-32.0); MCHC 33.3 g/dL (32.0-37.0); MCV 92.9 fL (80.0-97.0); Monocytes # (A) 0.83 10*3/uL (0.20-1.00); Monocytes % (A) 4.4 %; Neutrophils # (A) 17.03 10*3/uL (1.80-7.70); Neutrophils % (A) 89.7 %; Platelet Count 172 10*3/uL (140-440); RBC 4.50 10*6/uL (4.40-5.60); RDW 13.1 % (11.5-14.5); WBC 18.98 10*3/uL (4.50-10.00)
[2025-05-17 06:22] LABS: Glucose,Whole Blood 102 mg/dL (70-110)
[2025-05-17 06:22] LABS: African American GFR (CKD) >90 (>60 ml/min/1.73 sqM); Anion Gap 3 mmol/L; Blood Urea Nitrogen 30 mg/dL (9-20); Calcium 8.2 mg/dL (8.4-10.2); Carbon Dioxide 32 mmol/L (22-30); Chloride 97 mmol/L (98-107); Glucose 90 mg/dL (74-99); Non-African American GFR(CKD) >90 (>60 ml/min/1.73 sqM); Potassium 4.2 mmol/L (3.5-5.1); Sodium 132 mmol/L (137-145)
--- NOTE | 2025-05-17 07:02 | XR ---
EXAMINATION TYPE: XR chest 1V portable DATE OF EXAM: 05/17/2025 5:47 AM COMPARISON: Chest radiograph from one day prior. CLINICAL INDICATION: Male, 64 years old with history of respiratory failure; [facility] TECHNIQUE: XR chest 1V portable Frontal view of the chest. FINDINGS: Lungs/Pleura: Scattered subtle reticular and hazy opacities. No evidence of pneumothorax, focal conso lidation or pleural effusion. Pulmonary vascularity: Pulmonary vascular congestion. Heart/mediastinum: Cardiomediastinal silhouette is enlarged. Musculoskeletal: No acute osseous pathology. Left clavicle fixation hardware is intact. Other findings: None IMPRESSION: Stable exam scattered reticular opacities [facility], , 05/17/2025 6:59 AM
[2025-05-17] MEDS: VANCOMYCIN TROUGH DUE 1 EACH MISC MISCELLANE ONE (08:00)
[2025-05-17] MEDS: predniSONE 20 MG TAB PO SCH (08:11)
[2025-05-17 11:02] LABS: Glucose,Whole Blood 103 mg/dL (70-110)
--- NOTE | 2025-05-17 13:31 | P.PN ---
Subjective Progress Note Date: 05/17/25 Principal diagnosis: Acute hypoxic and hypercapnic respiratory failure secondary to acute exacerbation of COPD and mild congestive heart failure with tachyarrhythmia and SVT Patient is a 64-year-old male with past medical history significant for COPD, DVT/PE, loculated left-sided pleural effusion, alcohol abuse, polysubstance abuse. Patient brought in by EMS yesterday evening. Reportedly, the patient is homeless. He was at a friend's house the previous day and noted to be increasingly confused and lethargic. When EMS arrived the patient's pulse ox was reportedly 59%. He was barely responsive, requiring BVM ventilation. The patient was not intubated. Transitioned to BiPAP on arrival. Found to be in SVT, given IV push adenosine 6 mg and then 12 mg which reportedly terminated the arrhythmia. Later, the patient went into atrial fibrillation with RVR. He was given a Cardizem IV bolus and placed on a Cardizem infusion. Further workup including a chest x-ray showing cardiomegaly, pulmonary vascular congestion, and possible small left pleural effusion. He was given 80 mg of total IV Lasix in the ED. Labs including a CBC with a WBC count of 22.4, hemoglobin 15.2, platelets 244. CMP with a sodium of 141, potassium 5.5, chloride 94, serum bicarb 39, BUN 48, creatinine 1.85, glucose 119. Lactic 2.1. AST 1503, ALT 1178, ALP 129. [place]roponin [place] [address]. D-dimer also was elevated has 7.3. Patient was previously systemically heparinized for the atrial fibrillation. Ultrasound of abdomen remarkable for dilated CBD measuring up to 7 mm in diameter. No evidence of obstructing stone. Patient is now being evaluated in intensive care unit. He remains on BiPAP with current settings 12/6 and FiO2 of 80%. He does wake up to verbal stimuli and has sustained awakening. BiPAP does make it difficult to communicate. Follow-up ABG with some improvement, done on FiO2 of 100% with a PaO2 of 153, pCO2 of 74, pH of 7.31. He does have lower extremity edema. He has an external urinary catheter, and there is 650 cc of urine collected. Continues on Cardizem at 10 mg/h. Also, systemically heparinized. Current rhythm appears to be normal sinus in the mid 70s beats per minute. Blood pressure is normotensive. He was previously empi rically covered on azithromycin and Rocephin. Afebrile. On 05/11/2025, the patient is being seen for a follow-up. On today's evaluation, the patient denies having any significant shortness of breath. He is currently on oxygen 6 L/min nasal cannula and BiPAP has been discontinued. IV fluids are currently at KVO. He is slightly delusional and he thinks that were causing more harm to his care in the ICU. He remains in atrial fibrillation. Cardizem drip is still running at 50 mg an hour and the patient remains on IV heparin. Blood cultures positive for coagulase-negative staph, likely contaminant. He seems to be less short of breath compared to yesterday. He is able to communicate. The white cell count is 15, improved compared to yesterday with hemoglobin 14.7 and a platelet count of 242. The patient's BUN is 58 with a creatinine of 1.1 and the creatinine is improved compared to yesterday. Serum bicarb is 46, sodium is 142 with a potassium level of 4 and a chloride of 91. His procalcitonin level is at 2.27. His UA was negative. A follow-up chest x- ray was done today and it shows COPD with some mild pulm vascular congestion. Left base underpenetrated and not well assessed. The patient remains on broad- spectrum antibiotics. The patient remains on a combination of Rocephin and and Zithromax. His echocardiogram was also completed and the patient has a normal ejection fraction of 55 to 60%. The patient has mild decrease in septal wall thickening, mild RV dilatation, mild PA pressures elevation. No significant valvular abnormalities. On 05/12/2025, the patient is being seen for a follow-up. The patient was having episodes of delirium and the patient was placed on Precedex and currently is off Precedex. He also experienced worsening shortness of breath and the patient was placed on BiPAP at a pressure of 12/6 with an FiO2 of 50%. Subsequently, he was taken off the BiPAP and the patient is currently on 5 L of oxygen nasal cannula. He remains atrial fibrillation. Cardizem drip is running at 2.5 mg an hour. The patient was unable to take his oral medication due to concerns of dysphagia. A modified barium swallow was also ordered. Fluid balance is +213 cc over the past 24 hours. He remains in atrial fibrillation and he does have some underlying tachycardia. The white cell count is at 10.9 with a heme of 13.8 and a platelet count of 177. Electrolytes show a sodium level of 138, bicarbonate 40, BUN 59 with a creatinine 0.8. Blood sugars at 170. The patient remains on DuoNeb updrafts. The patient remains on IV Rocephin and Zithromax. The patient remains on anticoagulation with Eliquis and the medication was going to be given to him with applesauce. He is also on Lopressor 25 mg twice a day. Remains on IV Solu-Medrol. Chest x-ray shows no acute abnormalities and is consistent with COPD. Modified barium swallow is to follow. On 05/13/2025, the patient is awake. He continues to have episodes of confusion and some paranoid ideations. Nevertheless, neurologically, he is exam is nonfocal and is able to move all 4 extremities without any limitations. Denies having any shortness of breath. He remains on oxygen 66/min nasal cannula. However, he is having difficulties with swallowing. The patient was seen by speech pathology and the patient underwent a modified barium swallow which she obviously failed and the patient was kept n.p.o. as the patient was noted to have aspiration. As such, the patient is not receiving any oral intake at this point. The patient's follow-up blood gases from today shows a pH of 7.49 with a PCO2 of 61 and pO2 of 77. Electrolytes show a sodium level of 137, potassium is at 4, bicarb is 43, BUN is 43 with a creatinine of 0.8. WBC count is at 9.2 with a hemoglobin of 14 and a platelet count of 195. The patient remains atrial fibrillation. Rate is controlled. The patient is currently off the Cardizem drip. Unfortunately, he has not been able to take his anticoagulants and he has not been able to take his beta-blockers. He remains on bronchodilators. He remains on IV Solu-Medrol 60 mg every 6 hours. The blood culture was positive for staph hominis. Vancomycin was added to the regimen and the patient remains on Rocephin. No agitation at this point. Will recommend another swallow evaluation on this patient. Will also order a CAT scan of the brain to rule out development of any stroke contributing to his ongoing dysphagia. 05/14/2025, the patient continues to have delusions and hallucinations. Occasional agitations. The patient has a sitter at the bedside and the patient is currently on Precedex running at 1.1 mcg/kg/h. The patient is unable to swallow. He does not aspirate. He has been kept n.p.o. for oral intake and medication. Meanwhile, he remains atrial fibrillation the patient is currently on Cardizem drip at 5 mg an hour for rate control. He is also on lactated Ringer at rate of 50 cc an hour. Chest x-ray findings are essentially unchanged . White cell count is 8.4, hemoglobin is 14.3 and a platelet of 169. Sodium is 134, potassium 3.9, BUN 36 with a creatinine 0.7. Serum bicarbonate 40. This morning, the patient is on oxygen at 3 L/min nasal cannula with a pulse ox of 95%. The patient underwent a CAT scan of the brain on 05/13/2025 and the findings are essentially nondiagnostic and it shows no acute abnormalities. The patient underwent a psychiatric evaluation today and the patient was found not to have any decision-making capacity. Guardianship is being established. In regards to his delirium, he will be started on Prolixin IM 3 mg twice a day for psychosis and agitation. History will be At the bedside. He will be kept n.p.o. for now. He remains on DuoNeb about treatments [id number]. He remains on IV Solu-Medrol. He remains on empiric antibiotic coverage with IV Rocephin. He is also on vancomycin and the patient's blood culture was positive for Staph hominis. Hemodynamically stable. No pressors for now. 05/15/2025, the patient is being seen for a follow-up. Awake and alert and communicating. Occasional delusions. No agitation. Sitter at the bedside. Neurologic exam is nonfocal. The patient remains on Precedex running at 1.2 mcg/kg/min. I personally performed a bedside swallow evaluation on this patient. The patient was able to swallow properly. He was given applesauce and he was able to feed himself without any major difficulties. No cough during the swallow process. No significant shortness of breath. The patient remains on lactated Ringer at rate of 50 cc an hour. Currently is on 40 Suboxone by nasal cannula. Remains in atrial fibrillation. Cardizem is running at 10 mg an hour. Hemodynamically stable. No pressors. The white cell count at 10.7 with a hemoglobin 15.1 and the platelet count of 170. BUN is 29 with a creatinine of 0.66. Sodium is at 134 and potassium level is at 3.9. Remains on DuoNeb nebulized treatments [id number]. Remains on IV Solu-Medrol 40 mg every 12 hours. Remains on Cardizem drip and the patient will be started on metoprolol for rate control at a dose of 50 mg p.o. twice a day. The patient will be also restarted back on his routine oral medications. Will keep anticoagulation on hold for now. In terms of antibiotic coverage, the patient remains on a combination of Rocephin and vancomycin. On 05/16/2025, the patient remains on Precedex and this has been weaned down to 0.8 mcg/kg/min. This being used to control his agitation and the patient seems to be less paranoid. He is very reasonable in his discussions today. He is able to answer questions and follow commands without any focal neurological deficits. In addition, the patient is able to swallow. Overnight, he was on a BiPAP pressure of 12 or 6 cm of water with an FiO2 of 60% and currently he is on 40 Suboxone by nasal cannula. He remains in atrial fibrillation. Cardizem drip has been discontinued and the patient is currently on metoprolol 50 mg p.o. twice daily. Will not use anticoagulants based on his condition and comorbidities. No other complaints otherwise for now. His blood work shows a white cell count of 13, hemoglobin is 15.1 and a platelet count of 163. Sodium is at 133, potassium is at 4, bicarb is at 34, BUN 31 with a creatinine of 0.6. Afebrile. No significant agitation. Antibiotic coverage remains a combination of Rocephin and vancomycin. Seen today on 05/17/2025, patient remains in the ICU on Precedex he is on 3 L/min nasal cannula, Precedex is being weaned, overall the patient is appropriate, seen by psychiatry and placed on Prolixin as needed. Patient is also on ceftriaxone. Seems to be definitely less agitated, very comfortable not in any distress, apparently had significant agitation last night and yesterday. Patient is able to swallow pured diet he is now on nasal cannula and not in distress. Remains in atrial fibrillation, rate is controlled, continues to have leukocytosis with WBC count of 18.9 hemoglobin is 13.9 electrolytes are normal renal profile is normal, chest x-ray shows scattered reticular opacities, left lower lobe atelectasis in the retrocardiac area. Objective - Vital Signs Vital signs: Vital Signs Temp 98.4 F 05/17/25 08:00 Pulse 87 05/17/25 12:00 Resp 10 L 05/17/25 12:00 BP 99/68 05/17/25 12:00 Pulse Ox 94 L 05/17/25 12:00 FiO2 3 05/17/25 00:00 Intake & Output 05/16/25 05/17/25 05/17/25 18:59 06:59 18:59 Intake Total 8342.535 3222.924 310.577 Output Total 360 150 100 Balance 685.350 5580.924 210.577 Weight 67.6 kg Intake: IV 970 800 250 0.9NS 120 100 Lactated Ringers 1,000 ml 600 650 250 @ 50 mls/hr IV .Q20H [facility] Rx#:[id number] Vancomycin 1,250 mg In 250 Sodium Chloride 0.9% 250 ml @ 125 mls/hr IVPB Q12H [facility] Rx#:[id number] cefTRIAXone 1 gm In 50 Sodium Chloride 0.9% 50 ml @ 100 mls/hr IVPB Q24H [facility] Rx#:[id number] Intake, IV Titration 100.231 431.924 60.577 Amount Dexmedetomidine/0.9% NaCl 82.481 181.924 60.577 (Pmx) 400 mcg In Empty Bag 1 bag @ 0.2 MCG/KG/HR 3.37 mls/hr IV .Q24H [facility] Rx#:[id number] Diltiazem 125 mg In 17.75 Dextrose 5% in Water 100 ml @ 5 MG/HR 5 mls/hr IV .Q24H [facility] Rx#:[id number] Vancomycin 1,250 mg In 250 Sodium Chloride 0.9% 250 ml @ 125 mls/hr IVPB Q8H [facility] Rx#:[id number] Output: Urine 360 150 100 Other: Voiding Method External Catheter External Catheter External Catheter # Voids 1 1 - Exam GENERAL EXAM: 64-year-old male, awake and alert, not in distress, on Precedex, on nasal cannula HEAD: Normocephalic and atraumatic EYES: Normal reaction of pupils, equal size. Anicteric sclera. NOSE: Clear with pink turbinates. THROAT: No erythema or exudates. NECK: No masses, no JVD. CHEST: No chest wall deformity. LUNGS: Crackles at the bases no rhonchi no wheezes CVS: S1 and S2 normal with no audible murmur, irregular rhythm consistent with atrial fibrillation. No extra heart sounds ABDOMEN: No hepatosplenomegaly, active bowel sounds, no guarding or rigidity. Negative Zafar sign SKIN: Bilateral venous stasis dermatitis, right anterior weeping wound with dressing CENTRAL NERVOUS SYSTEM: Alert oriented x 3 no focal deficit EXTREMITIES: No clubbing edema or cyanosis - Labs CBC & Chem 7: 05/17/25 05:10 05/17/25 05:10 Labs: Abnormal Lab Results - Last 24 Hours (Table) 05/16/25 05/16/25 05/17/25 Range/Units 20:39 20:41 05:10 WBC (4.50-10.00) 10*3/uL Immature Gran # (0.00-0.04) 10*3/uL Neutrophils # (1.80-7.70) 10*3/uL Eosinophils # (0.04-0.35) 10*3/uL Sodium 132 L (137-145) mmol/L Chloride 97 L (98-107) mmol/L Carbon Dioxide 32 H (22-30) mmol/L BUN 30 H (9-20) mg/dL Creatinine 0.60 L (0.66-1.25) mg/dL POC Glucose (mg/dL) 235 H 186 H (70-110) mg/dL Calcium 8.2 L (8.4-10.2) mg/dL 05/17/25 Range/Units 05:10 WBC 18.98 H (4.50-10.00) 10*3/uL Immature Gran # 0.11 H (0.00-0.04) 10*3/uL Neutrophils # 17.03 H (1.80-7.70) 10*3/uL Eosinophils # 0.00 L (0.04-0.35) 10*3/uL Sodium (137-145) mmol/L Chloride (98-107) mmol/L Carbon Dioxide (22-30) mmol/L BUN (9-20) mg/dL Creatinine (0.66-1.25) mg/dL POC Glucose (mg/dL) (70-110) mg/dL Calcium (8.4-10.2) mg/dL Assessment and Plan Assessment: Impression: Acute hypoxic and hypercapnic respiratory failure secondary to acute exacerbation of COPD Acute diastolic congestive heart failure with tachyarrhythmia and supraventricular tachycardia requiring adenosine and Cardizem Acute leukocytosis Acute kidney injury History of loculated left-sided pleural effusion with previous pigtail catheter placement History of alcohol and Multi substance abuse Tobacco dependence syndrome Chronic dysphagia Staph hominis bacteremia Recommendation: Continue oxygen and titrate accordingly Wean and discontinue Precedex Continue updrafts for COPD Continue aspiration precautions and pured diet Continue Rocephin and vancomycin for now patient had Staph hominis in the blood Continue metoprolol 50 mg twice daily patient is now off Cardizem Continue GI and DVT prophylaxis Continue Prolixin 3 mg IM twice daily and 5 mg IM as needed Continue to monitor mental status If the patient does well off Precedex may consider transferring the patient to medical surgical floor. Will continue to follow Time with Patient: Less than 30
[2025-05-17 16:17] LABS: Glucose,Whole Blood 109 mg/dL (70-110)
[2025-05-17 22:14] LABS: Glucose,Whole Blood 74 mg/dL (70-110)
[2025-05-17 23:43] LABS: Glucose,Whole Blood 93 mg/dL (70-110)
[2025-05-18] MEDS: VANCOMYCIN 1,250 MG in SODIUM CHLORIDE 0.9% 250 ML IVPB SCH (01:12)
[2025-05-18 07:01] LABS: Glucose,Whole Blood 113 mg/dL (70-110)
--- NOTE | 2025-05-18 09:39 | PN ---
PROGRESS NOTE CHIEF COMPLAINT: Acute respiratory failure, congestive heart failure with mental illness. HISTORY OF PRESENT ILLNESS: This gentleman is doing about the same. He is being kept in ICU while guardianship is obtained. He is apparently able to swallow some foods now. PHYSICAL EXAM: Breath sounds are diminished. He has a dorsal kyphosis and cervical spine flexion, contracture. Cardiac exam is normal. Abdomen is soft and nontender. IMPRESSION: 1. Acute respiratory failure. 2. Chronic obstructive pulmonary disease. 3. Acute congestive heart failure. 4. History of substance abuse. 5. Cervical spine flexion contraction. 6. Leukocytosis. 7. Mental illness. PLAN: No change in his current management at this time. He probably will not need a PEG tube. Guardianship is being sought. MMODL / IJN: [id number] /
--- NOTE | 2025-05-18 10:11 | P.PN ---
Subjective Progress Note Date: 05/18/25 05/15/2025, the patient is being seen for a follow-up. Awake and alert and communicating. Occasional delusions. No agitation. Sitter at the bedside. Neurologic exam is nonfocal. The patient remains on Precedex running at 1.2 mcg/kg/min. I personally performed a bedside swallow evaluation on this pat ient. The patient was able to swallow properly. He was given applesauce and he was able to feed himself without any major difficulties. No cough during the swallow process. No significant shortness of breath. The patient remains on lactated Ringer at rate of 50 cc an hour. Currently is on 40 Suboxone by nasal cannula. Remains in atrial fibrillation. Cardizem is running at 10 mg an hour. Hemodynamically stable. No pressors. The white cell count at 10.7 with a hemoglobin 15.1 and the platelet count of 170. BUN is 29 with a creatinine of 0.66. Sodium is at 134 and potassium level is at 3.9. Remains on DuoNeb nebulized treatments [id number]. Remains on IV Solu-Medrol 40 mg every 12 hours. Remains on Cardizem drip and the patient will be started on metoprolol for rate control at a dose of 50 mg p.o. twice a day. The patient will be also restarted back on his routine oral medications. Will keep anticoagulation on hold for now. In terms of antibiotic coverage, the patient remains on a combination of Rocephin and vancomycin. On 05/16/2025, the patient remains on Precedex and this has been weaned down to 0.8 mcg/kg/min. This being used to control his agitation and the patient seems to be less paranoid. He is very reasonable in his discussions today. He is able to answer questions and follow commands without any focal neurological deficits. In addition, the patient is able to swallow. Overnight, he was on a BiPAP pressure of 12 or 6 cm of water with an FiO2 of 60% and currently he is on 40 Suboxone by nasal cannula. He remains in atrial fibrillation. Cardizem drip has been discontinued and the patient is currently on metoprolol 50 mg p.o. twice daily. Will not use anticoagulants based on his condition and comorbidities. No other complaints otherwise for now. His blood work shows a white cell count of 13, hemoglobin is 15.1 and a platelet count of 163. Sodium is at 133, potassium is at 4, bicarb is at 34, BUN 31 with a creatinine of 0.6. Afebrile. No significant agitation. Antibiotic coverage remains a combination of Rocephin and vancomycin. Seen today on 05/17/2025, patient remains in the ICU on Precedex he is on 3 L/min nasal cannula, Precedex is being weaned, overall the patient is appropriate, seen by psychiatry and placed on Prolixin as needed. Patient is also on ceftriaxone. Seems to be definitely less agitated, very comfortable not in any distress, apparently had significant agitation last night and yesterday. Patient is able to swallow pured diet he is now on nasal cannula and not in distress. Remains in atrial fibrillation, rate is controlled, continues to have leukocytosis with WBC count of 18.9 hemoglobin is 13.9 electrolytes are normal renal profile is normal, chest x-ray shows scattered reticular opacities, left lower lobe atelectasis in the retrocardiac area. The patient is seen today May 18, 2025 in follow-up on the regular medical floor. He was transferred out of the intensive care unit yesterday. He is currently resting in bed. Awake and alert in no acute distress. Maintaining O2 saturations in the 90s on 3 L/min per nasal cannula. He is afebrile. Hemodynamically stable. Glucose 113. Earlier blood culture revealed Staphylococcus hominis. The patient remains on vancomycin. He is continued on DuoNeb and elations, Pulmicort and Perforomist inhalations, prednisone taper. NicoDerm patch in place. Remains on the CIWA protocol. He is continued on his Suboxone. He was initiated on Prolixin by psychiatry. Objective - Vital Signs Vital signs: Vital Signs Temp 98.6 F 05/18/25 06:55 Pulse 79 05/18/25 06:55 Resp 20 05/18/25 06:55 BP 138/86 05/18/25 06:55 Pulse Ox 89 L 05/18/25 08:40 FiO2 3 05/17/25 00:00 Intake & Output 05/17/25 05/18/25 05/18/25 18:59 06:59 18:59 Intake Total 610.577 100 Output Total 1000 550 Balance -389.423 -450 Weight 67.6 kg Intake: IV 550 100 Lactated Ringers 1,000 ml 550 100 @ 50 mls/hr IV .Q20H [facility] Rx#:[id number] Intake, IV Titration 60.577 Amount Dexmedetomidine/0.9% NaCl 60.577 (Pmx) 400 mcg In Empty Bag 1 bag @ 0.2 MCG/KG/HR 3.37 mls/hr IV .Q24H [facility] Rx#:[id number] Output: Urine 1000 550 Other: Voiding Method External Catheter External Catheter # Voids 1 - Exam GENERAL EXAM: Alert, currently cooperative 64-year-old male, on 3 L nasal cannula, fairly comfortable in no apparent distress. HEAD: Normocephalic. EYES: Normal reaction of pupils, equal size. NOSE: Clear with pink turbinates. THROAT: No erythema or exudates. NECK: No masses, no JVD. CHEST: No chest wall deformity. LUNGS: Equal air entry with no crackles, wheeze, rhonchi or dullness. CVS: S1 and S2 normal with no audible murmur, irregular rhythm. ABDOMEN: No hepatosplenomegaly, normal bowel sounds, no guarding or rigidity. SPINE: No scoliosis or deformity SKIN: No rashes CENTRAL NERVOUS SYSTEM: No focal deficits, tone is normal in all 4 extremities. EXTREMITIES: There is no peripheral edema. No clubbing, no cyanosis. Peripheral pulses are intact. - Labs CBC & Chem 7: 05/17/25 05:10 05/17/25 05:10 Labs: Abnormal Lab Results - Last 24 Hours (Table) 05/18/25 Range/Units 06:59 POC Glucose (mg/dL) 113 H (70-110) mg/dL Assessment and Plan Assessment: Acute hypoxic and hypercapnic respiratory failure secondary to acute exacerbation of COPD Acute diastolic congestive heart failure with tachyarrhythmia and supraventricular tachycardia requiring adenosine and Cardizem Acute leukocytosis Acute kidney injury History of loculated left-sided pleural effusion with previous pigtail catheter placement History of alcohol and Multi substance abuse Tobacco dependence syndrome Chronic dysphagia Staph hominis bacteremia Plan: The patient was seen and evaluated Labs and medications reviewed Initial blood culture positive for Staph hominis Remains on vancomycin for now Consult to infectious disease Currently on oxygen at 3 L/min per nasal cannula Titrate down/off as tolerated Remains on a pured diet Remains on aspiration precautions Remains on Prolixin per psychiatry van loader at the bedside Social work working on guardianship and placement This patient was seen independently by the pulmonary nurse practitioner addressing pulmonary issues I have personally seen and examined the patient, performed the documentation and the assessment and plan as written. Number of minutes spent on the visit: 25 Dictation was produced using [employer] dictation software. Please excuse any grammatical, word or spelling errors.
[2025-05-18 12:13] LABS: Glucose,Whole Blood 111 mg/dL (70-110)
[2025-05-18 17:10] LABS: Glucose,Whole Blood 137 mg/dL (70-110)
--- NOTE | 2025-05-18 17:49 | P.CONS ---
History of Present Illness - Reason for Consult Consult date: 05/18/25 Bacteremia Requesting physician: Isa Mitchell - Chief Complaint Shortness of breath x few days - History of Present Illness Patient is a-year-old male with COPD, diabetes mellitus, history of alcohol use disorder, polysubstance abuse, loculated left-sided pleural effusion who initially presented on 05/09/2025 with altered mental status and acute hypoxic hypercapnic respiratory failure. He was initially seen in the ICU and placed on BiPAP and treated for pneumonia with Rocephin for 7 days and azithromycin. Blood culture revealed Staphylococcus hominis, and was subsequently started on vancomycin, which today is the fourth day of treatment. The patient has been afebrile this admission. He is breathing well with no distress with 95% O2 saturation on 4 L nasal cannula. Today he has no dyspnea, abdominal pain, nausea or vomiting, or dysuria. Yesterday he was found to have WBC 18.9 which has been increasing over the last few days. Creatinine was 0.63. Review of Systems Systems reviewed as per HPI. Past Medical History Past Medical History: COPD, Diabetes Mellitus, Deep Vein Thrombosis (DVT), Hypertension, Musculoskeletal Disorder, Pneumonia, Pulmonary Embolus (PE) Additional Past Medical History / Comment(s): "broken back 01/06/19", "heart arrhythmia's," DVT right leg, PE History of Any Multi-Drug Resistant Organisms: None Reported Past Surgical History: Orthopedic Surgery Additional Past Surgical History / Comment(s): left clavicle, jaw, lt leg Past Anesthesia/Blood Transfusion Reactions: No Reported Reaction Past Psychological History: Anxiety, Depression, Schizophrenia Smoking Status: Former smoker Past Alcohol Use History: None Reported, Abuse, Daily, Heavy Past Drug Use History: None Reported - Past Family History Sister(s) Family Medical History: Cancer Additional Family Medical History / Comment(s): 2 sisters from cancer Mother Family Medical History: Coronary Artery Disease (CAD) Father Additional Family Medical History / Comment(s): Alcoholic Medications and Allergies Home Medications Medication Instructions Recorded Confirmed Type Albuterol Inhaler [Ventolin Hfa 2 puff INHALATION RT-Q6H PRN 05/09/25 05/09/25 History Inhaler] Albuterol Nebulized [Ventolin 2.5 mg INHALATION RT-QID PRN 05/09/25 05/09/25 History Nebulized] Budesonide-Formot 160-4.5 Mcg 2 puff INHALATION RT-BID 05/09/25 05/09/25 History [Symbicort 160-4.5 Mcg Inhaler] Buprenorphine HCl/Naloxone HCl 1 film SL BID 05/09/25 05/09/25 History [Suboxone 8 mg-2 mg Sl Film] Furosemide [Lasix] 80 mg PO DAILY 05/09/25 05/09/25 History Meloxicam [Mobic] 15 mg PO DAILY 05/09/25 05/09/25 History Multivitamins, Thera [Multivitamin 1 tab PO DAILY 05/09/25 05/09/25 History (formulary)] Mupirocin 2% Oint [Bactroban 2% 1 applic TOPICAL TID 05/09/25 05/09/25 History Oint] Nicotine 21Mg/24Hr Patch [Habitrol] 1 patch TRANSDERM DAILY PRN 05/09/25 05/09/25 History Allergies Allergy/AdvReac Type Severity Reaction Status Date / Time No Known Allergies Allergy Verified 05/09/25 18:47 Physical Exam Vitals: Vital Signs Temp Pulse Pulse Pulse Pulse Resp BP 05/18/25 08:40 05/18/25 06:55 98.6 F 79 20 05/18/25 01:33 97.9 F 96 16 05/17/25 23:10 98.4 F 64 18 05/17/25 20:00 99.0 F 125 H 18 05/17/25 14:00 92 14 113/87 05/17/25 13:00 89 20 124/83 05/17/25 12:00 87 10 L 99/68 BP Pulse Ox 05/18/25 08:40 89 L 05/18/25 06:55 138/86 92 L 05/18/25 01:33 126/85 93 L 05/17/25 23:10 140/94 95 05/17/25 20:00 134/93 94 L 05/17/25 14:00 05/17/25 13:00 92 L 05/17/25 12:00 94 L Intake and Output 05/17/25 05/18/25 05/18/25 22:59 06:59 14:59 Intake Total 400 Output Total 1150 300 Balance -750 -300 Intake: IV 400 Lactated Ringers 1,000 ml 400 @ 50 mls/hr IV .Q20H [facility] Rx#:[id number] Output: Urine 1150 300 Other: Voiding Method External Catheter External Catheter GENERAL DESCRIPTION: Male lying in bed, no distress. Ill-appearing. No tachypnea or accessory muscle of respiration use. HEENT: No Pallor , no scleral icterus. Oral mucous membrane is moist. No pharyngeal erythema or thrush NECK: Trachea central, no thyromegaly. LUNGS: Unlabored breathing. Clear to auscultation anteriorly. No wheeze or crackle. HEART: S1, S2, regular rate and rhythm. No loud murmur ABDOMEN: Soft, nondistended, nontender EXTREMITIES: No edema of feet. SKIN: Bilateral venous stasis dermatitis, right anterior briones wound with dressing. NEUROLOGICAL: The patient is awake, alert, oriented x3, mood and affect normal. Results CBC & Chem 7: 05/17/25 05:10 05/17/25 05:10 Labs: Abnormal Lab Results - Last 24 Hours (Table) 05/18/25 Range/Units 06:59 POC Glucose (mg/dL) 113 H (70-110) mg/dL Assessment and Plan (1) Sepsis Current Visit: Yes Status: Acute Code(s): A41.9 - SEPSIS, UNSPECIFIED ORGANISM SNOMED Code(s): 98008176 (2) Pneumonia Current Visit: No Status: Acute Code(s): J18.9 - PNEUMONIA, UNSPECIFIED ORGANISM SNOMED Code(s): 128301423 (3) Bacteremia Current Visit: Yes Status: Acute Code(s): R78.81 - BACTEREMIA SNOMED Code(s): 8574546 Plan: 1. Patient initially treated for pneumonia with full course of Rocephin and azithromycin which resulted in improvement of symptoms and leukocytosis. 2. Blood culture positive for Staphylococcus hominis, which is believed to be likely contaminant. Will repeat blood cultures. 3. After initial improvement of leukocytosis, WBC has increased last 3 days to WBC 18.9 yesterday. Repeat CBC tomorrow. Leukocytosis likely due to prednisone use, as patient is afebrile, with no clear signs of infectious process. Would recommend discontinuing vancomycin. Duglas Manning MD Internal Medicine Resident, PGY2 Infectious disease service Patient was seen and examined with resident physician positive blood culture with Streptococcus, is likely skin contamination as a patient no clinical disease to go along with it vancomycin has been discontinued, also noticed to have elevated white count more likely related to the steroids however if any worsening white count despite cutting the dose of prednisone may consider oropharyngeal candidiasis an need for antifungal therapy justino ruiz MD Dictation was produced using [employer] dictation software. please excuse any grammatical, word or spelling errors. Time with Patient: Greater than 30
--- NOTE | 2025-05-18 19:47 | PN ---
PROGRESS NOTE CHIEF COMPLAINT: Acute respiratory failure and congestive heart failure. HISTORY OF PRESENT ILLNESS: This gentleman is doing well. He has been moved out of the unit. He is awake and alert. He would like to try advancing his diet. PHYSICAL EXAMINATION: CHEST: Fairly clear. NECK: Same. CARDIAC: Normal. ABDOMEN: Soft and nontender. EXTREMITIES: Same. IMPRESSION: 1. Acute respiratory failure. 2. Acute congestive heart failure. 3. Chronic obstructive pulmonary disease. 4. Stasis dermatitis and cellulitis of the legs. 5. Borderline personality. PLAN: Continue with current management. Diet is advanced and we will await guardianship. MMODL / IJN: [id number] /
[2025-05-18 20:15] LABS: Glucose,Whole Blood 139 mg/dL (70-110)
[2025-05-18] MEDS: SODIUM CHLORIDE 0.9% 1,000 ML IV SCH (21:52)
[2025-05-18] MEDS: FUROSEMIDE 10 MG/ML 4 ML VIAL IV STA (22:51)
[2025-05-19] MEDS: IPRATROPIUM-ALBUTEROL 3 ML NEB INHALATION STA (03:39)
--- NOTE | 2025-05-19 03:47 | XR ---
EXAM: XR Chest, 1 View CLINICAL HISTORY: Shortness of breath TECHNIQUE: Frontal view of the chest. COMPARISON: Chest radiograph 05/17/2025 FINDINGS: Lungs: Left lower lobe atelectasis or pneumonia. Pleural space: Small bilateral pleural effusions. No pneumothorax. Heart: Cardiomegaly. Mediastinum: Large hiatal hernia. Bones/joints: There are degenerative changes of the spine. No acute fracture. There are surgical hardware of the left clavicle. IMPRESSION: 1. Left lower lobe atelectasis or pneumonia. 2. Large hiatal hernia. 3. Small bilateral pleural effusions. 4. Cardiomegaly.
[2025-05-19 06:14] LABS: Glucose,Whole Blood 71 mg/dL (70-110)
[2025-05-19] MEDS ORDERED: VANCOMYCIN TROUGH DUE 1 EACH MISC MISCELLANE ONE (08:00)
[2025-05-19 08:04] LABS: African American GFR (CKD) >90 (>60 ml/min/1.73 sqM); Blood Urea Nitrogen 20 mg/dL (9-20); Calcium 8.5 mg/dL (8.4-10.2); Chloride 93 mmol/L (98-107); Glucose 71 mg/dL (74-99); Non-African American GFR(CKD) >90 (>60 ml/min/1.73 sqM); Potassium 3.4 mmol/L (3.5-5.1); Sodium 135 mmol/L (137-145)
[2025-05-19 08:11] LABS: Anion Gap 4 mmol/L
[2025-05-19] MEDS: PIPERACILLIN-TAZOBACTAM 3.375 GM in SODIUM CHLORIDE 0.9% 100 ML IVPB SCH (08:37)
[2025-05-19 08:40] LABS: Carbon Dioxide 38 mmol/L (22-30)
[2025-05-19 10:26] LABS: HCT 47.9 % (39.6-50.0); HGB 15.1 g/dL (13.0-17.0); MCH 30.0 pg (27.0-32.0); MCHC 31.5 g/dL (32.0-37.0); MCV 95.0 FL (80.0-97.0); NRBC Per 100 WBC 0 X 10*3/uL (0.00-0.01); Platelet Count 206 X 10*3/uL (140-440); RBC 5.04 X 10*6/uL (4.40-5.60); RDW 13.2 % (11.5-14.5); WBC 30.07 X 10*3/uL (4.50-10.00)
[2025-05-19 11:16] LABS: Basophils # (A) 0.05 X 10*3/uL (0.00-0.10); Basophils % (A) 0.2 %; Eosinophils # (A) 0.05 X 10*3/uL (0.04-0.35); Eosinophils % (A) 0.2 %; Immature Grans, Automated 0.60 %; Lymphocytes # (A) 1.88 X 10*3/uL (0.90-5.00); Lymphocytes % (A) 6.3 %; Monocytes # (A) 1.36 X 10*3/uL (0.20-1.00); Monocytes % (A) 4.5 %; Neutrophils # (A) 26.56 X 10*3/uL (1.80-7.70); Neutrophils % (A) 88.2 %
[2025-05-19 11:39] LABS: Glucose,Whole Blood 120 mg/dL (70-110)
[2025-05-19] MEDS: POTASSIUM CHLORIDE ER 20 MEQ TAB.ER PO SCH (12:34)
--- NOTE | 2025-05-19 14:48 | P.PN ---
Subjective Progress Note Date: 05/19/25 Principal diagnosis: Reason for follow-up is positive blood culture/pneumonia Patient is a-year-old male with COPD, diabetes mellitus, history of alcohol use disorder, polysubstance abuse, loculated left-sided pleural effusion who initially presented on 05/09/2025 with altered mental status and acute hypoxic hypercapnic respiratory failure. He was initially seen in the ICU and placed on BiPAP and treated for pneumonia with Rocephin for 7 days and azithromycin. Blood culture revealed Staphylococcus hominis, and was subsequently started on vancomycin for 4 days. The patient has been afebrile this admission. He was breathing well with no distress with 95% O2 saturation on 4 L nasal cannula. Overnight 05/19/25 the patient became increasingly short of breath, and was placed on 15 L high flow nasal cannula. He continues to have productive cough with green sputum. He has no abdominal pain, nausea or vomiting, or dysuria. Today he is afebrile, and he was found to have WBC 30.0. Creatinine was 0.55. Findings of left lower lobe atelectasis or pneumonia, large hiatal hernia and small bilateral pleural effusions. Objective - Vital Signs Vital signs: Vital Signs Temp 97.9 F 05/19/25 12:30 Pulse 67 05/19/25 12:30 Resp 22 05/19/25 12:30 BP 122/92 05/19/25 12:30 Pulse Ox 92 L 05/19/25 12:30 FiO2 3 05/17/25 00:00 Intake & Output 05/18/25 05/19/25 05/19/25 18:59 06:59 18:59 Intake Total 308 Output Total 850 3825 Balance -850 -3825 308 Weight 67 kg 67 kg Intake: IV 10 Invasive Line 4 10 Oral 298 Output: Urine 850 3825 Other: Voiding Method External Catheter External Catheter # Voids 1 # Bowel Movements 1 - Exam GENERAL DESCRIPTION: Middle-age male, sitting upright in bed with no distress RESPIRATORY SYSTEM: Mildly labored breathing, bilateral rhonchi HEART: S1 S2 regular rate and rhythm ABDOMEN: Soft , no tenderness EXTREMITIES: No edema feet - Labs CBC & Chem 7: 05/19/25 06:44 05/19/25 18:53 Labs: Abnormal Lab Results - Last 24 Hours (Table) 05/18/25 05/18/25 05/19/25 Range/Units 17:03 20:08 06:44 WBC (4.50-10.00) X 10*3/uL MCHC (32.0-37.0) g/dL Immature Gran # (0.00-0.04) X 10*3/uL Neutrophils # (1.80-7.70) X 10*3/uL Monocytes # (0.20-1.00) X 10*3/uL Sodium 135 L (137-145) mmol/L Potassium 3.4 L (3.5-5.1) mmol/L Chloride 93 L (98-107) mmol/L Carbon Dioxide 38 H (22-30) mmol/L Creatinine 0.55 L (0.66-1.25) mg/dL Glucose 71 L (74-99) mg/dL POC Glucose (mg/dL) 137 H 139 H (70-110) mg/dL 05/19/25 05/19/25 Range/Units 06:44 11:37 WBC 30.07 H (4.50-10.00) X 10*3/uL MCHC 31.5 L (32.0-37.0) g/dL Immature Gran # 0.17 H (0.00-0.04) X 10*3/uL Neutrophils # 26.56 H (1.80-7.70) X 10*3/uL Monocytes # 1.36 H (0.20-1.00) X 10*3/uL Sodium (137-145) mmol/L Potassium (3.5-5.1) mmol/L Chloride (98-107) mmol/L Carbon Dioxide (22-30) mmol/L Creatinine (0.66-1.25) mg/dL Glucose (74-99) mg/dL POC Glucose (mg/dL) 120 H (70-110) mg/dL Assessment and Plan (1) Sepsis Current Visit: Yes Status: Acute Code(s): A41.9 - SEPSIS, UNSPECIFIED ORGANISM SNOMED Code(s): 65787749 (2) Pneumonia Current Visit: No Status: Acute Code(s): J18.9 - PNEUMONIA, UNSPECIFIED ORGANISM SNOMED Code(s): 207156170 (3) Bacteremia Current Visit: Yes Status: Acute Code(s): R78.81 - BACTEREMIA SNOMED Code(s): 1869852 Plan: 1. Patient initially treated for pneumonia with full course of Rocephin and azithromycin which resulted in improvement of symptoms and leukocytosis. 2. Blood culture positive for Staphylococcus hominis, which is believed to be likely contaminant. Will repeat blood cultures. 3. After initial improvement of leukocytosis, WBC has increased last 3 days to WBC 18.9 yesterday. Repeat CBC tomorrow. Leukocytosis likely due to prednisone use, as patient is afebrile, with no clear signs of infectious process. Vancomycin discontinued. 4. On 05/19/2025 overnight patient became increasingly dyspneic and required 15 L high flow nasal cannula. Chest x-ray reviewed. It is suspected that patient aspirated and has been placed on Zosyn at this time. Duglas Manning MD Internal Medicine Resident, PGY2 Infectious disease service Patient was personally seen and examined with the resident physician overnight patient did have worsening of his respiratory status question of possible aspira tion pneumonitis we will try to obtain a sputum for Gram stain and culture Zosyn has been added empirically and will monitor clinical course closely justino ruiz MD Dictation was produced using [employer] dictation software. please excuse any grammatical, word or spelling errors. Time with Patient: Less than 30
[2025-05-19 16:40] LABS: Glucose,Whole Blood 211 mg/dL (70-110)
--- NOTE | 2025-05-19 17:02 | P.PN ---
Subjective Progress Note Date: 05/19/25 05/15/2025, the patient is being seen for a follow-up. Awake and alert and communicating. Occasional delusions. No agitation. Sitter at the bedside. Neurologic exam is nonfocal. The patient remains on Precedex running at 1.2 mcg/kg/min. I personally performed a bedside swallow evaluation on this pat ient. The patient was able to swallow properly. He was given applesauce and he was able to feed himself without any major difficulties. No cough during the swallow process. No significant shortness of breath. The patient remains on lactated Ringer at rate of 50 cc an hour. Currently is on 40 Suboxone by nasal cannula. Remains in atrial fibrillation. Cardizem is running at 10 mg an hour. Hemodynamically stable. No pressors. The white cell count at 10.7 with a hemoglobin 15.1 and the platelet count of 170. BUN is 29 with a creatinine of 0.66. Sodium is at 134 and potassium level is at 3.9. Remains on DuoNeb nebulized treatments [id number]. Remains on IV Solu-Medrol 40 mg every 12 hours. Remains on Cardizem drip and the patient will be started on metoprolol for rate control at a dose of 50 mg p.o. twice a day. The patient will be also restarted back on his routine oral medications. Will keep anticoagulation on hold for now. In terms of antibiotic coverage, the patient remains on a combination of Rocephin and vancomycin. On 05/16/2025, the patient remains on Precedex and this has been weaned down to 0.8 mcg/kg/min. This being used to control his agitation and the patient seems to be less paranoid. He is very reasonable in his discussions today. He is able to answer questions and follow commands without any focal neurological deficits. In addition, the patient is able to swallow. Overnight, he was on a BiPAP pressure of 12 or 6 cm of water with an FiO2 of 60% and currently he is on 40 Suboxone by nasal cannula. He remains in atrial fibrillation. Cardizem drip has been discontinued and the patient is currently on metoprolol 50 mg p.o. twice daily. Will not use anticoagulants based on his condition and comorbidities. No other complaints otherwise for now. His blood work shows a white cell count of 13, hemoglobin is 15.1 and a platelet count of 163. Sodium is at 133, potassium is at 4, bicarb is at 34, BUN 31 with a creatinine of 0.6. Afebrile. No significant agitation. Antibiotic coverage remains a combination of Rocephin and vancomycin. Seen today on 05/17/2025, patient remains in the ICU on Precedex he is on 3 L/min nasal cannula, Precedex is being weaned, overall the patient is appropriate, seen by psychiatry and placed on Prolixin as needed. Patient is also on ceftriaxone. Seems to be definitely less agitated, very comfortable not in any distress, apparently had significant agitation last night and yesterday. Patient is able to swallow pured diet he is now on nasal cannula and not in distress. Remains in atrial fibrillation, rate is controlled, continues to have leukocytosis with WBC count of 18.9 hemoglobin is 13.9 electrolytes are normal renal profile is normal, chest x-ray shows scattered reticular opacities, left lower lobe atelectasis in the retrocardiac area. The patient is seen today May 18, 2025 in follow-up on the regular medical floor. He was transferred out of the intensive care unit yesterday. He is currently resting in bed. Awake and alert in no acute distress. Maintaining O2 saturations in the 90s on 3 L/min per nasal cannula. He is afebrile. Hemodynamically stable. Glucose 113. Earlier blood culture revealed Staphylococcus hominis. The patient remains on vancomycin. He is continued on DuoNeb and elations, Pulmicort and Perforomist inhalations, prednisone taper. NicoDerm patch in place. Remains on the CIWA protocol. He is continued on his Suboxone. He was initiated on Prolixin by psychiatry. The patient is seen today May 19, 2025 in follow-up on the regular medical floor. He is currently sitting up in bed having lunch. Awake and alert in no acute distress. Still confused at times. freight and passenger agent remains at the bedside. He is currently on 10 L high flow nasal cannula. He is afebrile. Hemodynamically stable. Chest x-ray continues to show a left lower lobe atelectasis. There is a large hiatal hernia. Small bilateral effusions. Cardiomegaly. Blood culture initially was positive for Staph hominis. White count 30.0. Hemoglobin 15.1. Platelets 206. Sodium 135. Potassium 3.4. Bicarb 38. BUN 20. Creatinine 0.55. Glucose 71. He remains on DuoNeb and elations, Pulmicort and Perforomist inhalations, prednisone taper. NicoDerm patch in place. Continued on Zosyn. Objective - Vital Signs Vital signs: Vital Signs Temp 96.3 F L 05/19/25 15:38 Pulse 70 05/19/25 15:38 Resp 20 05/19/25 15:38 BP 131/93 05/19/25 15:38 Pulse Ox 97 05/19/25 15:38 FiO2 3 05/17/25 00:00 Intake & Output 05/18/25 05/19/25 05/19/25 18:59 06:59 18:59 Intake Total 308 Output Total 850 3825 Balance -850 -3825 308 Weight 67 kg 67 kg Intake: IV 10 Invasive Line 4 10 Oral 298 Output: Urine 850 3825 Other: Voiding Method External Catheter External Catheter # Voids 1 # Bowel Movements 1 - Exam GENERAL EXAM: Alert, confused at times 64-year-old male, on 10 L nasal cannula, fairly comfortable in no apparent distress. HEAD: Normocephalic. EYES: Normal reaction of pupils, equal size. NOSE: Clear with pink turbinates. THROAT: No erythema or exudates. NECK: No masses, no JVD. CHEST: No chest wall deformity. LUNGS: Equal air entry with bilateral scattered rhonchi. CVS: S1 and S2 normal with no audible murmur, irregular rhythm. ABDOMEN: No hepatosplenomegaly, normal bowel sounds, no guarding or rigidity. SPINE: No scoliosis or deformity SKIN: No rashes CENTRAL NERVOUS SYSTEM: No focal deficits, tone is normal in all 4 extremities. EXTREMITIES: There is no peripheral edema. No clubbing, no cyanosis. Peripheral pulses are intact. - Labs CBC & Chem 7: 05/19/25 06:44 05/19/25 06:44 Labs: Abnormal Lab Results - Last 24 Hours (Table) 05/18/25 05/18/25 05/19/25 Range/Units 17:03 20:08 06:44 WBC (4.50-10.00) X 10*3/uL MCHC (32.0-37.0) g/dL Immature Gran # (0.00-0.04) X 10*3/uL Neutrophils # (1.80-7.70) X 10*3/uL Monocytes # (0.20-1.00) X 10*3/uL Sodium 135 L (137-145) mmol/L Potassium 3.4 L (3.5-5.1) mmol/L Chloride 93 L (98-107) mmol/L Carbon Dioxide 38 H (22-30) mmol/L Creatinine 0.55 L (0.66-1.25) mg/dL Glucose 71 L (74-99) mg/dL POC Glucose (mg/dL) 137 H 139 H (70-110) mg/dL 05/19/25 05/19/25 05/19/25 Range/Units 06:44 11:37 16:38 WBC 30.07 H (4.50-10.00) X 10*3/uL MCHC 31.5 L (32.0-37.0) g/dL Immature Gran # 0.17 H (0.00-0.04) X 10*3/uL Neutrophils # 26.56 H (1.80-7.70) X 10*3/uL Monocytes # 1.36 H (0.20-1.00) X 10*3/uL Sodium (137-145) mmol/L Potassium (3.5-5.1) mmol/L Chloride (98-107) mmol/L Carbon Dioxide (22-30) mmol/L Creatinine (0.66-1.25) mg/dL Glucose (74-99) mg/dL POC Glucose (mg/dL) 120 H 211 H (70-110) mg/dL Assessment and Plan Assessment: Acute hypoxic and hypercapnic respiratory failure secondary to acute exacerbation of COPD Acute diastolic congestive heart failure with tachyarrhythmia and supraventricular tachycardia requiring adenosine and Cardizem Acute leukocytosis Acute kidney injury History of loculated left-sided pleural effusion with previous pigtail catheter placement History of alcohol and Multi substance abuse Tobacco dependence syndrome Chronic dysphagia Staph hominis bacteremia Plan: The patient was seen and evaluated Chest x-ray, labs and medications reviewed Continued on bronchodilators Continued on Zosyn Currently on 10 L high flow nasal cannula Titrate down the FiO2 as tolerated Remains on aspiration precautions Currently on a pured diet freight and passenger agent at the bedside Remains on Prolixin per psychiatrist Social work working on guardianship and placement I have personally seen and examined the patient, performed the documentation and the assessment and plan as written. Number of minutes spent on the visit: 10 Dictation was produced using [employer] dictation software. Please excuse any grammatical, word or spelling errors.
[2025-05-19 17:08] LABS: Glucose,Whole Blood 274 mg/dL (70-110)
[2025-05-19 19:33] LABS: African American GFR (CKD) >90 (>60 ml/min/1.73 sqM); Anion Gap 7 mmol/L; Blood Urea Nitrogen 25 mg/dL (9-20); Calcium 8.7 mg/dL (8.4-10.2); Carbon Dioxide 37 mmol/L (22-30); Chloride 90 mmol/L (98-107); Glucose 242 mg/dL (74-99); Magnesium 1.7 mg/dL (1.6-2.3); Non-African American GFR(CKD) >90 (>60 ml/min/1.73 sqM); Potassium 4.7 mmol/L (3.5-5.1); Sodium 134 mmol/L (137-145)
[2025-05-19 20:09] LABS: Glucose,Whole Blood 185 mg/dL (70-110)
--- NOTE | 2025-05-19 23:41 | PN ---
PROGRESS NOTE DATE OF SERVICE: 05/19/2025 CHIEF COMPLAINT: Acute respiratory failure, acute CHF. HISTORY OF PRESENT ILLNESS: This gentleman is doing fairly well and then he went back into atrial fibrillation with a rate of around 120-130 and is restless and complaining of shortness of breath. PHYSICAL EXAMINATION: CHEST: Breath sounds are very poor. CARDIAC: Reveals elevated heart rate due to his conversion to atrial fibrillation. IMPRESSION: 1. Recurrent atrial fibrillation. 2. Acute respiratory failure. 3. Acute congestive heart failure. 4. Chronic obstructive pulmonary disease. 5. Analgesic abuse. PLAN: 1. Cardiology will address his recurrent atrial fibrillation. 2. Electrolytes and magnesium. MMODL / IJN: [id number] /
[2025-05-20 06:29] LABS: Glucose,Whole Blood 117 mg/dL (70-110)
[2025-05-20 07:33] LABS: Basophils # (A) 0.02 10*3/uL (0.00-0.10); Basophils % (A) 0.1 %; Eosinophils # (A) 0.04 10*3/uL (0.04-0.35); Eosinophils % (A) 0.2 %; HCT 44.4 % (39.6-50.0); HGB 14.1 g/dL (13.0-17.0); Lymphocytes # (A) 1.55 10*3/uL (0.90-5.00); Lymphocytes % (A) 6.5 %; MCH 29.7 pg (27.0-32.0); MCHC 31.8 g/dL (32.0-37.0); MCV 93.7 fL (80.0-97.0); Monocytes # (A) 1.39 10*3/uL (0.20-1.00); Monocytes % (A) 5.8 %; Neutrophils # (A) 20.88 10*3/uL (1.80-7.70); Neutrophils % (A) 86.9 %; Platelet Count 193 10*3/uL (140-440); RBC 4.74 10*6/uL (4.40-5.60); RDW 13.1 % (11.5-14.5); WBC 24.00 10*3/uL (4.50-10.00)
[2025-05-20 07:50] LABS: African American GFR (CKD) >90 (>60 ml/min/1.73 sqM); Anion Gap 3 mmol/L; Blood Urea Nitrogen 18 mg/dL (9-20); Calcium 8.8 mg/dL (8.4-10.2); Carbon Dioxide 37 mmol/L (22-30); Chloride 93 mmol/L (98-107); Glucose 108 mg/dL (74-99); Non-African American GFR(CKD) >90 (>60 ml/min/1.73 sqM); Potassium 4.6 mmol/L (3.5-5.1); Sodium 133 mmol/L (137-145)
[2025-05-20] MEDS: DILTIAZEM ORAL 30 MG TAB PO SCH (09:17)
[2025-05-20] MEDS: FUROSEMIDE 40 MG TAB PO SCH (09:17)
[2025-05-20 11:27] LABS: Glucose,Whole Blood 127 mg/dL (70-110)
--- NOTE | 2025-05-20 13:33 | P.PN ---
Subjective Progress Note Date: 05/20/25 Patient is a-64 year-old male with COPD, diabetes mellitus, history of alcohol use disorder, polysubstance abuse, loculated left-sided pleural effusion who initially presented on 05/09/2025 with altered mental status and acute hypoxic hypercapnic respiratory failure. He was initially seen in the ICU and placed on BiPAP and treated for pneumonia with Rocephin for 7 days and azithromycin. Blood culture revealed Staphylococcus hominis, and was subsequently started on vancomyci 05/20. Patient seen and examined. Dr. Shaw took over care. WBC 24, hemoglobin 14.1, platelet count 193, sodium 133, potassium 4.6, BUN 18, creatinine 0.60, glucose 108. Vital signs this morning is temperature 98, heart rate 84, respiration 18, blood pressure 96%, currently on 8 L of oxygen REVIEW OF SYSTEMS: CONSTITUTIONAL: No fever, no malaise,. CARDIOVASCULAR: No chest pain, no palpitations, no syncope. PULMONARY: No shortness of breath, no cough, GASTROINTESTINAL: No diarrhea, no nausea, no vomiting, no abdominal pain. NEUROLOGICAL: No headaches, no weakness, PHYSICAL EXAMINATION: GENERAL: The patient is alert and oriented x3, ill looking HEENT: Pupils are round and equally reacting to light. EOMI. No scleral icterus. No conjunctival pallor. Normocephalic, atraumatic. No pharyngeal erythema. No thyromegaly. CARDIOVASCULAR: S1 and S2 present. No murmurs, rubs, or gallops. PULMONARY: Coarse breath sounds bilaterally, no wheezing or crackles. ABDOMEN: Soft, nontender, nondistended, normoactive bowel sounds. No palpable organomegaly. MUSCULOSKELETAL: No joint swelling or deformity. EXTREMITIES: No cyanosis, clubbing, or pedal edema. NEUROLOGICAL: Gross neurological examination did not reveal any focal deficits. SKIN: No rashes. Assessment and plan Acute hypoxic and hypercapnic respiratory failure secondary to acute exacerbation of COPD Acute diastolic congestive heart failure with tachyarrhythmia and supraventricular tachycardia requiring adenosine and Cardizem Acute leukocytosis Acute kidney injury History of loculated left-sided pleural effusion with previous pigtail catheter placement History of alcohol and Multi substance abuse Tobacco dependence syndrome Chronic dysphagia Staph hominis bacteremia Monitor vital signs Monitor CBC Monitor CMP Continue telemetry monitoring Continue oxygen supplementation Continue breathing treatments Continue IV Zosyn Continue Lasix ID following Pulmonology following Labs and medication were reviewed.. Continue same treatment. Continue with symptomatic treatment. Resume home medication. Monitor labs and vitals. DVT and GI prophylaxis. Further recommendations as per clinical course of the patient Dictation was produced using [employer] dictation software. please excuse any grammatical, word or spelling errors. Objective - Vital Signs Vital signs: Vital Signs Temp 98 F 05/20/25 11:59 Pulse 96 05/20/25 11:59 Resp 22 05/20/25 11:59 BP 96/69 05/20/25 11:59 Pulse Ox 92 L 05/20/25 11:59 FiO2 3 05/17/25 00:00 Intake & Output 05/19/25 05/20/25 05/20/25 18:59 06:59 18:59 Intake Total 728 490 Output Total 200 1175 500 Balance 528 -1175 -10 Weight 67 kg 67.5 kg Intake: IV 10 10 Invasive Line 4 10 Invasive Line 6 10 Oral 718 480 Output: Urine 200 1175 500 Other: Voiding Method External Catheter External Catheter External Catheter # Bowel Movements 1 - Labs CBC & Chem 7: 05/20/25 06:59 05/20/25 06:59 Labs: Abnormal Lab Results - Last 24 Hours (Table) 05/19/25 05/19/25 05/19/25 Range/Units 16:38 17:07 18:53 WBC (4.50-10.00) 10*3/uL MCHC (32.0-37.0) g/dL Immature Gran # (0.00-0.04) 10*3/uL Neutrophils # (1.80-7.70) 10*3/uL Monocytes # (0.20-1.00) 10*3/uL Sodium 134 L (137-145) mmol/L Chloride 90 L (98-107) mmol/L Carbon Dioxide 37 H (22-30) mmol/L BUN 25 H (9-20) mg/dL Creatinine 0.65 L (0.66-1.25) mg/dL Glucose 242 H (74-99) mg/dL POC Glucose (mg/dL) 211 H 274 H (70-110) mg/dL 05/19/25 05/20/25 05/20/25 Range/Units 20:08 06:28 06:59 WBC 24.00 H (4.50-10.00) 10*3/uL MCHC 31.8 L (32.0-37.0) g/dL Immature Gran # 0.12 H (0.00-0.04) 10*3/uL Neutrophils # 20.88 H (1.80-7.70) 10*3/uL Monocytes # 1.39 H (0.20-1.00) 10*3/uL Sodium (137-145) mmol/L Chloride (98-107) mmol/L Carbon Dioxide (22-30) mmol/L BUN (9-20) mg/dL Creatinine (0.66-1.25) mg/dL Glucose (74-99) mg/dL POC Glucose (mg/dL) 185 H 117 H (70-110) mg/dL 05/20/25 05/20/25 Range/Units 06:59 11:26 WBC (4.50-10.00) 10*3/uL MCHC (32.0-37.0) g/dL Immature Gran # (0.00-0.04) 10*3/uL Neutrophils # (1.80-7.70) 10*3/uL Monocytes # (0.20-1.00) 10*3/uL Sodium 133 L (137-145) mmol/L Chloride 93 L (98-107) mmol/L Carbon Dioxide 37 H (22-30) mmol/L BUN (9-20) mg/dL Creatinine 0.60 L (0.66-1.25) mg/dL Glucose 108 H (74-99) mg/dL POC Glucose (mg/dL) 127 H (70-110) mg/dL Microbiology - Last 24 Hours (Table) 05/18/25 10:13 Blood Culture - Preliminary Blood
--- NOTE | 2025-05-20 13:59 | P.PN ---
Subjective Progress Note Date: 05/20/25 The patient is a 64-year-old male who was brought to the emergency room for mental status changes. 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 Patient converted to atrial fibrillation thereafter. Patient has remained in anticoagulation on and off Cardizem drip during his stay through the ICU. Patient has been noncompliant with nursing staff in regards to swallowing medications as well as failed most recent swallow evaluation by speech therapy. Cardizem drip is currently off with heart rates in the 90s. Heparin drip has been discontinued Patient was interviewed and examined resting comfortably on nasal cannula. He denies any chest pain or difficulty breathing. 05/20/2025 Patient seen and examined. On 05/13, cardiology signed off the case. Yesterday patient was in A-fib with RVR running between 120 and 140 and thus cardiology was reconsulted. Patient is currently rate controlled in the 80s and 90s, blood pressure 117/69, pulse ox 97% on 10 L high flow nasal cannula. Repeat blood work reveals potassium 4.6, creatinine 0.6, WBC 24, hemoglobin 14.1. GENERAL: Well-appearing, well-nourished and in no acute distress. NECK: Supple without JVD or thyromegaly. LUNGS: Breath sounds diminished to auscultation bilaterally. Respiration equal and unlabored. No wheezes, rales or rhonchi. HEART: Irregular rate and rhythm without murmurs, rubs or gallops. S1 and S2 heard. EXTREMITIES: No edema. No clubbing or cyanosis. Peripheral pulses intact and strong. IMPRESSION: Mental status changes AVNRT, s/p adenosine A-fib with RVR, currently rate controlled Congestive heart failure Elevated D-dimer Transaminitis Chronic obstructive pulmonary disease History of EtOH abuse History of polysubstance abuse Chronic tobacco use History of pulmonary emboli and DVT PLAN: Continue patient on Cardizem and increase to 90 mg 3 times daily, continue metoprolol tartrate 50 mg and increase to 3 times daily Resume patient on oral Lasix 40 mg daily Patient is not a candidate for long-term anticoagulation No further recommendations from the cardiac standpoint Cardiology will sign off this case and follow on an as-needed basis. Please reconsult for any new concerns. Nurse practitioner note has been reviewed, I agree with documented findings and plan of care. Patient was seen and examined. Objective - Vital Signs Vital signs: Vital Signs Temp 98.3 F 05/20/25 03:07 Pulse 104 H 05/20/25 08:38 Resp 18 05/20/25 03:07 BP 133/90 05/20/25 03:07 Pulse Ox 96 05/20/25 03:07 FiO2 3 05/17/25 00:00 Intake & Output 05/19/25 05/20/25 05/20/25 18:59 06:59 18:59 Intake Total 728 Output Total 200 1175 Balance 528 -1175 Weight 67 kg 67.5 kg Intake: IV 10 Invasive Line 4 10 Oral 718 Output: Urine 200 1175 Other: Voiding Method External Catheter External Catheter # Bowel Movements 1 - Labs CBC & Chem 7: 05/20/25 06:59 05/20/25 06:59 Labs: Abnormal Lab Results - Last 24 Hours (Table) 05/19/25 05/19/25 05/19/25 Range/Units 06:44 11:37 16:38 WBC 30.07 H (4.50-10.00) X 10*3/uL MCHC 31.5 L (32.0-37.0) g/dL Immature Gran # 0.17 H (0.00-0.04) X 10*3/uL Neutrophils # 26.56 H (1.80-7.70) X 10*3/uL Monocytes # 1.36 H (0.20-1.00) X 10*3/uL Sodium (137-145) mmol/L Chloride (98-107) mmol/L Carbon Dioxide (22-30) mmol/L BUN (9-20) mg/dL Creatinine (0.66-1.25) mg/dL Glucose (74-99) mg/dL POC Glucose (mg/dL) 120 H 211 H (70-110) mg/dL 05/19/25 05/19/25 05/19/25 Range/Units 17:07 18:53 20:08 WBC (4.50-10.00) X 10*3/uL MCHC (32.0-37.0) g/dL Immature Gran # (0.00-0.04) X 10*3/uL Neutrophils # (1.80-7.70) X 10*3/uL Monocytes # (0.20-1.00) X 10*3/uL Sodium 134 L (137-145) mmol/L Chloride 90 L (98-107) mmol/L Carbon Dioxide 37 H (22-30) mmol/L BUN 25 H (9-20) mg/dL Creatinine 0.65 L (0.66-1.25) mg/dL Glucose 242 H (74-99) mg/dL POC Glucose (mg/dL) 274 H 185 H (70-110) mg/dL 05/20/25 05/20/25 05/20/25 Range/Units 06:28 06:59 06:59 WBC 24.00 H (4.50-10.00) X 10*3/uL MCHC 31.8 L (32.0-37.0) g/dL Immature Gran # 0.12 H (0.00-0.04) X 10*3/uL Neutrophils # 20.88 H (1.80-7.70) X 10*3/uL Monocytes # 1.39 H (0.20-1.00) X 10*3/uL Sodium 133 L (137-145) mmol/L Chloride 93 L (98-107) mmol/L Carbon Dioxide 37 H (22-30) mmol/L BUN (9-20) mg/dL Creatinine 0.60 L (0.66-1.25) mg/dL Glucose 108 H (74-99) mg/dL POC Glucose (mg/dL) 117 H (70-110) mg/dL Microbiology - Last 24 Hours (Table) 05/18/25 10:13 Blood Culture - Preliminary Blood
--- NOTE | 2025-05-20 15:50 | P.PN ---
Subjective Progress Note Date: 05/20/25 Principal diagnosis: Acute hypoxic and hypercapnic respiratory failure secondary to acute exacerbation of COPD and mild congestive heart failure with tachyarrhythmia and SVT Patient is a 64-year-old male with past medical history significant for COPD, DVT/PE, loculated left-sided pleural effusion, alcohol abuse, polysubstance abuse. Patient brought in by EMS yesterday evening. Reportedly, the patient is homeless. He was at a friend's house the previous day and noted to be increasingly confused and lethargic. When EMS arrived the patient's pulse ox was reportedly 59%. He was barely responsive, requiring BVM ventilation. The patient was not intubated. Transitioned to BiPAP on arrival. Found to be in SVT, given IV push adenosine 6 mg and then 12 mg which reportedly terminated the arrhythmia. Later, the patient went into atrial fibrillation with RVR. He was given a Cardizem IV bolus and placed on a Cardizem infusion. Further workup including a chest x-ray showing cardiomegaly, pulmonary vascular congestion, and possible small left pleural effusion. He was given 80 mg of total IV Lasix in the ED. Labs including a CBC with a WBC count of 22.4, hemoglobin 15.2, platelets 244. CMP with a sodium of 141, potassium 5.5, chloride 94, serum bicarb 39, BUN 48, creatinine 1.85, glucose 119. Lactic 2.1. AST 1503, ALT 1178, ALP 129. [place]roponin 0[place] [address]. D-dimer also was elevated has 7.3. Patient was previously systemically heparinized for the atrial fibrillation. Ultrasound of abdomen remarkable for dilated CBD measuring up to 7 mm in diameter. No evidence of obstructing stone. Patient is now being evaluated in intensive care unit. He remains on BiPAP with current settings 12/6 and FiO2 of 80%. He does wake up to verbal stimuli and has sustained awakening. BiPAP does make it difficult to communicate. Follow-up ABG with some improvement, done on FiO2 of 100% with a PaO2 of 153, pCO2 of 74, pH of 7.31. He does have lower extremity edema. He has an external urinary catheter, and there is 650 cc of urine collected. Continues on Cardizem at 10 mg/h. Also, systemically heparinized. Current rhythm appears to be normal sinus in the mid 70s beats per minute. Blood pressure is normotensive. He was previously empi rically covered on azithromycin and Rocephin. Afebrile. On 05/11/2025, the patient is being seen for a follow-up. On today's evaluation, the patient denies having any significant shortness of breath. He is currently on oxygen 6 L/min nasal cannula and BiPAP has been discontinued. IV fluids are currently at KVO. He is slightly delusional and he thinks that were causing more harm to his care in the ICU. He remains in atrial fibrillation. Cardizem drip is still running at 50 mg an hour and the patient remains on IV heparin. Blood cultures positive for coagulase-negative staph, likely contaminant. He seems to be less short of breath compared to yesterday. He is able to communicate. The white cell count is 15, improved compared to yesterday with hemoglobin 14.7 and a platelet count of 242. The patient's BUN is 58 with a creatinine of 1.1 and the creatinine is improved compared to yesterday. Serum bicarb is 46, sodium is 142 with a potassium level of 4 and a chloride of 91. His procalcitonin level is at 2.27. His UA was negative. A follow-up chest x- ray was done today and it shows COPD with some mild pulm vascular congestion. Left base underpenetrated and not well assessed. The patient remains on broad- spectrum antibiotics. The patient remains on a combination of Rocephin and and Zithromax. His echocardiogram was also completed and the patient has a normal ejection fraction of 55 to 60%. The patient has mild decrease in septal wall thickening, mild RV dilatation, mild PA pressures elevation. No significant valvular abnormalities. On 05/12/2025, the patient is being seen for a follow-up. The patient was having episodes of delirium and the patient was placed on Precedex and currently is off Precedex. He also experienced worsening shortness of breath and the patient was placed on BiPAP at a pressure of 12/6 with an FiO2 of 50%. Subsequently, he was taken off the BiPAP and the patient is currently on 5 L of oxygen nasal cannula. He remains atrial fibrillation. Cardizem drip is running at 2.5 mg an hour. The patient was unable to take his oral medication due to concerns of dysphagia. A modified barium swallow was also ordered. Fluid balance is +213 cc over the past 24 hours. He remains in atrial fibrillation and he does have some underlying tachycardia. The white cell count is at 10.9 with a heme of 13.8 and a platelet count of 177. Electrolytes show a sodium level of 138, bicarbonate 40, BUN 59 with a creatinine 0.8. Blood sugars at 170. The patient remains on DuoNeb updrafts. The patient remains on IV Rocephin and Zithromax. The patient remains on anticoagulation with Eliquis and the medication was going to be given to him with applesauce. He is also on Lopressor 25 mg twice a day. Remains on IV Solu-Medrol. Chest x-ray shows no acute abnormalities and is consistent with COPD. Modified barium swallow is to follow. On 05/13/2025, the patient is awake. He continues to have episodes of confusion and some paranoid ideations. Nevertheless, neurologically, he is exam is nonfocal and is able to move all 4 extremities without any limitations. Denies having any shortness of breath. He remains on oxygen 66/min nasal cannula. However, he is having difficulties with swallowing. The patient was seen by speech pathology and the patient underwent a modified barium swallow which she obviously failed and the patient was kept n.p.o. as the patient was noted to have aspiration. As such, the patient is not receiving any oral intake at this point. The patient's follow-up blood gases from today shows a pH of 7.49 with a PCO2 of 61 and pO2 of 77. Electrolytes show a sodium level of 137, potassium is at 4, bicarb is 43, BUN is 43 with a creatinine of 0.8. WBC count is at 9.2 with a hemoglobin of 14 and a platelet count of 195. The patient remains atrial fibrillation. Rate is controlled. The patient is currently off the Cardizem drip. Unfortunately, he has not been able to take his anticoagulants and he has not been able to take his beta-blockers. He remains on bronchodilators. He remains on IV Solu-Medrol 60 mg every 6 hours. The blood culture was positive for staph hominis. Vancomycin was added to the regimen and the patient remains on Rocephin. No agitation at this point. Will recommend another swallow evaluation on this patient. Will also order a CAT scan of the brain to rule out development of any stroke contributing to his ongoing dysphagia. 05/14/2025, the patient continues to have delusions and hallucinations. Occasional agitations. The patient has a sitter at the bedside and the patient is currently on Precedex running at 1.1 mcg/kg/h. The patient is unable to swallow. He does not aspirate. He has been kept n.p.o. for oral intake and medication. Meanwhile, he remains atrial fibrillation the patient is currently on Cardizem drip at 5 mg an hour for rate control. He is also on lactated Ringer at rate of 50 cc an hour. Chest x-ray findings are essentially unchanged . White cell count is 8.4, hemoglobin is 14.3 and a platelet of 169. Sodium is 134, potassium 3.9, BUN 36 with a creatinine 0.7. Serum bicarbonate 40. This morning, the patient is on oxygen at 3 L/min nasal cannula with a pulse ox of 95%. The patient underwent a CAT scan of the brain on 05/13/2025 and the findings are essentially nondiagnostic and it shows no acute abnormalities. The patient underwent a psychiatric evaluation today and the patient was found not to have any decision-making capacity. Guardianship is being established. In regards to his delirium, he will be started on Prolixin IM 3 mg twice a day for psychosis and agitation. History will be At the bedside. He will be kept n.p.o. for now. He remains on DuoNeb about treatments [id number]. He remains on IV Solu-Medrol. He remains on empiric antibiotic coverage with IV Rocephin. He is also on vancomycin and the patient's blood culture was positive for Staph hominis. Hemodynamically stable. No pressors for now. 05/15/2025, the patient is being seen for a follow-up. Awake and alert and communicating. Occasional delusions. No agitation. Sitter at the bedside. Neurologic exam is nonfocal. The patient remains on Precedex running at 1.2 mcg/kg/min. I personally performed a bedside swallow evaluation on this patient. The patient was able to swallow properly. He was given applesauce and he was able to feed himself without any major difficulties. No cough during the swallow process. No significant shortness of breath. The patient remains on lactated Ringer at rate of 50 cc an hour. Currently is on 40 Suboxone by nasal cannula. Remains in atrial fibrillation. Cardizem is running at 10 mg an hour. Hemodynamically stable. No pressors. The white cell count at 10.7 with a hemoglobin 15.1 and the platelet count of 170. BUN is 29 with a creatinine of 0.66. Sodium is at 134 and potassium level is at 3.9. Remains on DuoNeb nebulized treatments [id number]. Remains on IV Solu-Medrol 40 mg every 12 hours. Remains on Cardizem drip and the patient will be started on metoprolol for rate control at a dose of 50 mg p.o. twice a day. The patient will be also restarted back on his routine oral medications. Will keep anticoagulation on hold for now. In terms of antibiotic coverage, the patient remains on a combination of Rocephin and vancomycin. On 05/16/2025, the patient remains on Precedex and this has been weaned down to 0.8 mcg/kg/min. This being used to control his agitation and the patient seems to be less paranoid. He is very reasonable in his discussions today. He is able to answer questions and follow commands without any focal neurological deficits. In addition, the patient is able to swallow. Overnight, he was on a BiPAP pressure of 12 or 6 cm of water with an FiO2 of 60% and currently he is on 40 Suboxone by nasal cannula. He remains in atrial fibrillation. Cardizem drip has been discontinued and the patient is currently on metoprolol 50 mg p.o. twice daily. Will not use anticoagulants based on his condition and comorbidities. No other complaints otherwise for now. His blood work shows a white cell count of 13, hemoglobin is 15.1 and a platelet count of 163. Sodium is at 133, potassium is at 4, bicarb is at 34, BUN 31 with a creatinine of 0.6. Afebrile. No significant agitation. Antibiotic coverage remains a combination of Rocephin and vancomycin. Seen today on 05/17/2025, patient remains in the ICU on Precedex he is on 3 L/min nasal cannula, Precedex is being weaned, overall the patient is appropriate, seen by psychiatry and placed on Prolixin as needed. Patient is also on ceftriaxone. Seems to be definitely less agitated, very comfortable not in any distress, apparently had significant agitation last night and yesterday. Patient is able to swallow pured diet he is now on nasal cannula and not in distress. Remains in atrial fibrillation, rate is controlled, continues to have leukocytosis with WBC count of 18.9 hemoglobin is 13.9 electrolytes are normal renal profile is normal, chest x-ray shows scattered reticular opacities, left lower lobe atelectasis in the retrocardiac area. Patient was seen today on 05/20/2025, patient seems to be calm, not in distress, he is on 8 L high flow nasal cannula, O2 saturation is anywhere between 92 to 95%, patient denies any shortness of breath, he does have some productive thick purulent phlegm production. Chest x-ray yesterday showed mostly left lower lobe atelectasis and/or pneumonia he does have a large hiatal hernia and small bilateral pleural effusions with cardiomegaly. WBC count is 24,000's hemoglobin 14.1 electrolytes are normal bicarb is 37 BUN is 18 creatinine 0.60 Objective - Vital Signs Vital signs: Vital Signs Temp 98 F 05/20/25 11:59 Pulse 96 05/20/25 11:59 Resp 22 05/20/25 11:59 BP 96/69 05/20/25 11:59 Pulse Ox 93 L 05/20/25 14:01 FiO2 3 05/17/25 00:00 Intake & Output 05/19/25 05/20/25 05/20/25 18:59 06:59 18:59 Intake Total 728 490 Output Total 200 1175 700 Balance 528 -1175 -210 Weight 67 kg 67.5 kg Intake: IV 10 10 Invasive Line 4 10 Invasive Line 6 10 Oral 718 480 Output: Urine 200 1175 700 Other: Voiding Method External Catheter External Catheter External Catheter # Voids 1 # Bowel Movements 1 - Exam GENERAL EXAM: 64-year-old male, awake and alert, on 8 L high flow nasal cannula HEAD: Normocephalic and atraumatic EYES: Normal reaction of pupils, equal size. Anicteric sclera. NOSE: Clear with pink turbinates. THROAT: No erythema or exudates. NECK: No masses, no JVD. CHEST: No chest wall deformity. LUNGS: Crackles at the bases no rhonchi no wheezes CVS: S1 and S2 normal with no audible murmur, irregular rhythm consistent with atrial fibrillation. No extra heart sounds ABDOMEN: No hepatosplenomegaly, active bowel sounds, no guarding or rigidity. Negative Zafar sign SKIN: Bilateral venous stasis dermatitis, right anterior weeping wound with dressing CENTRAL NERVOUS SYSTEM: Alert oriented x 3 no focal deficit EXTREMITIES: No clubbing edema or cyanosis - Labs CBC & Chem 7: 05/20/25 06:59 05/20/25 06:59 Labs: Abnormal Lab Results - Last 24 Hours (Table) 05/19/25 05/19/25 05/19/25 Range/Units 16:38 17:07 18:53 WBC (4.50-10.00) 10*3/uL MCHC (32.0-37.0) g/dL Immature Gran # (0.00-0.04) 10*3/uL Neutrophils # (1.80-7.70) 10*3/uL Monocytes # (0.20-1.00) 10*3/uL Sodium 134 L (137-145) mmol/L Chloride 90 L (98-107) mmol/L Carbon Dioxide 37 H (22-30) mmol/L BUN 25 H (9-20) mg/dL Creatinine 0.65 L (0.66-1.25) mg/dL Glucose 242 H (74-99) mg/dL POC Glucose (mg/dL) 211 H 274 H (70-110) mg/dL 05/19/25 05/20/25 05/20/25 Range/Units 20:08 06:28 06:59 WBC 24.00 H (4.50-10.00) 10*3/uL MCHC 31.8 L (32.0-37.0) g/dL Immature Gran # 0.12 H (0.00-0.04) 10*3/uL Neutrophils # 20.88 H (1.80-7.70) 10*3/uL Monocytes # 1.39 H (0.20-1.00) 10*3/uL Sodium (137-145) mmol/L Chloride (98-107) mmol/L Carbon Dioxide (22-30) mmol/L BUN (9-20) mg/dL Creatinine (0.66-1.25) mg/dL Glucose (74-99) mg/dL POC Glucose (mg/dL) 185 H 117 H (70-110) mg/dL 05/20/25 05/20/25 Range/Units 06:59 11:26 WBC (4.50-10.00) 10*3/uL MCHC (32.0-37.0) g/dL Immature Gran # (0.00-0.04) 10*3/uL Neutrophils # (1.80-7.70) 10*3/uL Monocytes # (0.20-1.00) 10*3/uL Sodium 133 L (137-145) mmol/L Chloride 93 L (98-107) mmol/L Carbon Dioxide 37 H (22-30) mmol/L BUN (9-20) mg/dL Creatinine 0.60 L (0.66-1.25) mg/dL Glucose 108 H (74-99) mg/dL POC Glucose (mg/dL) 127 H (70-110) mg/dL Microbiology - Last 24 Hours (Table) 05/18/25 10:13 Blood Culture - Preliminary Blood Assessment and Plan Assessment: Impression: Acute hypoxic and hypercapnic respiratory failure secondary to acute exacerbation of COPD Acute diastolic congestive heart failure with tachyarrhythmia and supraventricular tachycardia requiring adenosine and Cardizem Acute leukocytosis Acute kidney injury History of loculated left-sided pleural effusion with previous pigtail catheter placement History of alcohol and Multi substance abuse Tobacco dependence syndrome Chronic dysphagia Staph hominis bacteremia Recommendation: Continue oxygen and titrate accordingly Continue updrafts for COPD Continue aspiration precautions and pured diet Continue antibiotics, patient is being followed by infectious disease for his bacteremia which is felt to be contamination with Staphylococcus hominis Continue metoprolol 50 mg twice daily patient is now off Cardizem Continue GI and DVT prophylaxis Continue Prolixin 3 mg IM twice daily and 5 mg IM as needed Will continue to follow Time with Patient: Less than 30
--- NOTE | 2025-05-20 16:17 | P.PN ---
Subjective Progress Note Date: 05/20/25 Principal diagnosis: Reason for follow-up is leukocytosis/aspiration pneumonia Reason for follow-up is positive blood culture/pneumonia Patient is a-year-old male with COPD, diabetes mellitus, history of alcohol use disorder, polysubstance abuse, loculated left-sided pleural effusion who initially presented on 05/09/2025 with altered mental status and acute hypoxic hypercapnic respiratory failure. He was initially seen in the ICU and placed on BiPAP and treated for pneumonia with Rocephin for 7 days and azithromycin. Blood culture revealed Staphylococcus hominis, and was subsequently started on vancomycin for 4 days. The patient has been afebrile this admission. He was breathing well with no distress with 95% O2 saturation on 4 L nasal cannula. Today 05/20/25 His shortness of breath is improving, and he continues on 10 L high flow nasal cannula. He continues to have productive cough with green sputum. He has no abdominal pain, nausea or vomiting, or dysuria. Today he is afebrile, and he was found to have WBC 24.0. Creatinine was 0.60. No new imaging today. Objective - Vital Signs Vital signs: Vital Signs Temp 98.0 F 05/20/25 09:09 Pulse 84 05/20/25 09:09 Resp 18 05/20/25 09:09 BP 117/69 05/20/25 09:09 Pulse Ox 97 05/20/25 09:09 FiO2 3 05/17/25 00:00 Intake & Output 05/19/25 05/20/25 05/20/25 18:59 06:59 18:59 Intake Total 728 10 Output Total 200 1175 Balance 528 -1175 10 Weight 67 kg 67.5 kg Intake: IV 10 10 Invasive Line 4 10 Invasive Line 6 10 Oral 718 Output: Urine 200 1175 Other: Voiding Method External Catheter External Catheter # Bowel Movements 1 - Exam GENERAL DESCRIPTION: An elderly male, sitting upright in bed with no distress RESPIRATORY SYSTEM: Mildly labored breathing, bilateral rhonchi HEART: S1 S2 regular rate and rhythm ABDOMEN: Soft , no tenderness EXTREMITIES: No edema feet - Labs CBC & Chem 7: 05/20/25 06:59 05/20/25 06:59 Labs: Abnormal Lab Results - Last 24 Hours (Table) 05/19/25 05/19/25 05/19/25 Range/Units 06:44 11:37 16:38 WBC 30.07 H (4.50-10.00) X 10*3/uL MCHC 31.5 L (32.0-37.0) g/dL Immature Gran # 0.17 H (0.00-0.04) X 10*3/uL Neutrophils # 26.56 H (1.80-7.70) X 10*3/uL Monocytes # 1.36 H (0.20-1.00) X 10*3/uL Sodium (137-145) mmol/L Chloride (98-107) mmol/L Carbon Dioxide (22-30) mmol/L BUN (9-20) mg/dL Creatinine (0.66-1.25) mg/dL Glucose (74-99) mg/dL POC Glucose (mg/dL) 120 H 211 H (70-110) mg/dL 05/19/25 05/19/25 05/19/25 Range/Units 17:07 18:53 20:08 WBC (4.50-10.00) X 10*3/uL MCHC (32.0-37.0) g/dL Immature Gran # (0.00-0.04) X 10*3/uL Neutrophils # (1.80-7.70) X 10*3/uL Monocytes # (0.20-1.00) X 10*3/uL Sodium 134 L (137-145) mmol/L Chloride 90 L (98-107) mmol/L Carbon Dioxide 37 H (22-30) mmol/L BUN 25 H (9-20) mg/dL Creatinine 0.65 L (0.66-1.25) mg/dL Glucose 242 H (74-99) mg/dL POC Glucose (mg/dL) 274 H 185 H (70-110) mg/dL 05/20/25 05/20/25 05/20/25 Range/Units 06:28 06:59 06:59 WBC 24.00 H (4.50-10.00) X 10*3/uL MCHC 31.8 L (32.0-37.0) g/dL Immature Gran # 0.12 H (0.00-0.04) X 10*3/uL Neutrophils # 20.88 H (1.80-7.70) X 10*3/uL Monocytes # 1.39 H (0.20-1.00) X 10*3/uL Sodium 133 L (137-145) mmol/L Chloride 93 L (98-107) mmol/L Carbon Dioxide 37 H (22-30) mmol/L BUN (9-20) mg/dL Creatinine 0.60 L (0.66-1.25) mg/dL Glucose 108 H (74-99) mg/dL POC Glucose (mg/dL) 117 H (70-110) mg/dL Microbiology - Last 24 Hours (Table) 05/18/25 10:13 Blood Culture - Preliminary Blood Assessment and Plan (1) Sepsis Current Visit: Yes Status: Acute Code(s): A41.9 - SEPSIS, UNSPECIFIED ORGANISM SNOMED Code(s): 84933381 (2) Pneumonia Current Visit: No Status: Acute Code(s): J18.9 - PNEUMONIA, UNSPECIFIED ORGANISM SNOMED Code(s): 126281762 (3) Bacteremia Current Visit: Yes Status: Acute Code(s): R78.81 - BACTEREMIA SNOMED Code(s): 9002037 Plan: 1. Patient initially treated for pneumonia with full course of Rocephin and azithromycin which resulted in improvement of symptoms and leukocytosis. 2. Blood culture positive for Staphylococcus hominis, which is believed to be likely contaminant. Repeat blood cultures. 3. Recurrent leukocytosis was thought to be due to prednisone use, as patient was afebrile, with no clear signs of infectious process and Vancomycin discon tinued. 4. On 05/19/2025 overnight patient became increasingly dyspneic and placed on high flow nasal cannula. Chest x-ray reviewed. It is suspected that patient aspirated and has been placed on Zosyn empirically at this time. Duglas Manning MD Internal Medicine Resident, PGY2 Infectious disease service Patient was personally seen and examined, agree with the documentation by the resident physician the patient white count is trending down requiring supplemental oxygen we will continue Zosyn and monitor course closely. justino ruiz MD Dictation was produced using [employer] dictation software. please excuse any grammatical, word or spelling errors. Time with Patient: Less than 30
[2025-05-20 16:49] LABS: Glucose,Whole Blood 138 mg/dL (70-110)
[2025-05-20] MEDS: METOPROLOL TARTRATE 50 MG TAB PO SCH (16:56)
[2025-05-20 20:18] LABS: Glucose,Whole Blood 163 mg/dL (70-110)
[2025-05-21 06:04] LABS: Glucose,Whole Blood 140 mg/dL (70-110)
[2025-05-21 11:46] LABS: Glucose,Whole Blood 112 mg/dL (70-110)
--- NOTE | 2025-05-21 14:37 | P.PN ---
Subjective Progress Note Date: 05/21/25 Principal diagnosis: Acute hypoxic and hypercapnic respiratory failure secondary to acute exacerbation of COPD and mild congestive heart failure with tachyarrhythmia and SVT Patient is a 64-year-old male with past medical history significant for COPD, DVT/PE, loculated left-sided pleural effusion, alcohol abuse, polysubstance abuse. Patient brought in by EMS yesterday evening. Reportedly, the patient is homeless. He was at a friend's house the previous day and noted to be increasingly confused and lethargic. When EMS arrived the patient's pulse ox was reportedly 59%. He was barely responsive, requiring BVM ventilation. The patient was not intubated. Transitioned to BiPAP on arrival. Found to be in SVT, given IV push adenosine 6 mg and then 12 mg which reportedly terminated the arrhythmia. Later, the patient went into atrial fibrillation with RVR. He was given a Cardizem IV bolus and placed on a Cardizem infusion. Further workup including a chest x-ray showing cardiomegaly, pulmonary vascular congestion, and possible small left pleural effusion. He was given 80 mg of total IV Lasix in the ED. Labs including a CBC with a WBC count of 22.4, hemoglobin 15.2, platelets 244. CMP with a sodium of 141, potassium 5.5, chloride 94, serum bicarb 39, BUN 48, creatinine 1.85, glucose 119. Lactic 2.1. AST 1503, ALT 1178, ALP 129. [place]roponin 0[place] [address]. D-dimer also was elevated has 7.3. Patient was previously systemically heparinized for the atrial fibrillation. Ultrasound of abdomen remarkable for dilated CBD measuring up to 7 mm in diameter. No evidence of obstructing stone. Patient is now being evaluated in intensive care unit. He remains on BiPAP with current settings 12/6 and FiO2 of 80%. He does wake up to verbal stimuli and has sustained awakening. BiPAP does make it difficult to communicate. Follow-up ABG with some improvement, done on FiO2 of 100% with a PaO2 of 153, pCO2 of 74, pH of 7.31. He does have lower extremity edema. He has an external urinary catheter, and there is 650 cc of urine collected. Continues on Cardizem at 10 mg/h. Also, systemically heparinized. Current rhythm appears to be normal sinus in the mid 70s beats per minute. Blood pressure is normotensive. He was previously empi rically covered on azithromycin and Rocephin. Afebrile. On 05/11/2025, the patient is being seen for a follow-up. On today's evaluation, the patient denies having any significant shortness of breath. He is currently on oxygen 6 L/min nasal cannula and BiPAP has been discontinued. IV fluids are currently at KVO. He is slightly delusional and he thinks that were causing more harm to his care in the ICU. He remains in atrial fibrillation. Cardizem drip is still running at 50 mg an hour and the patient remains on IV heparin. Blood cultures positive for coagulase-negative staph, likely contaminant. He seems to be less short of breath compared to yesterday. He is able to communicate. The white cell count is 15, improved compared to yesterday with hemoglobin 14.7 and a platelet count of 242. The patient's BUN is 58 with a creatinine of 1.1 and the creatinine is improved compared to yesterday. Serum bicarb is 46, sodium is 142 with a potassium level of 4 and a chloride of 91. His procalcitonin level is at 2.27. His UA was negative. A follow-up chest x- ray was done today and it shows COPD with some mild pulm vascular congestion. Left base underpenetrated and not well assessed. The patient remains on broad- spectrum antibiotics. The patient remains on a combination of Rocephin and and Zithromax. His echocardiogram was also completed and the patient has a normal ejection fraction of 55 to 60%. The patient has mild decrease in septal wall thickening, mild RV dilatation, mild PA pressures elevation. No significant valvular abnormalities. On 05/12/2025, the patient is being seen for a follow-up. The patient was having episodes of delirium and the patient was placed on Precedex and currently is off Precedex. He also experienced worsening shortness of breath and the patient was placed on BiPAP at a pressure of 12/6 with an FiO2 of 50%. Subsequently, he was taken off the BiPAP and the patient is currently on 5 L of oxygen nasal cannula. He remains atrial fibrillation. Cardizem drip is running at 2.5 mg an hour. The patient was unable to take his oral medication due to concerns of dysphagia. A modified barium swallow was also ordered. Fluid balance is +213 cc over the past 24 hours. He remains in atrial fibrillation and he does have some underlying tachycardia. The white cell count is at 10.9 with a heme of 13.8 and a platelet count of 177. Electrolytes show a sodium level of 138, bicarbonate 40, BUN 59 with a creatinine 0.8. Blood sugars at 170. The patient remains on DuoNeb updrafts. The patient remains on IV Rocephin and Zithromax. The patient remains on anticoagulation with Eliquis and the medication was going to be given to him with applesauce. He is also on Lopressor 25 mg twice a day. Remains on IV Solu-Medrol. Chest x-ray shows no acute abnormalities and is consistent with COPD. Modified barium swallow is to follow. On 05/13/2025, the patient is awake. He continues to have episodes of confusion and some paranoid ideations. Nevertheless, neurologically, he is exam is nonfocal and is able to move all 4 extremities without any limitations. Denies having any shortness of breath. He remains on oxygen 66/min nasal cannula. However, he is having difficulties with swallowing. The patient was seen by speech pathology and the patient underwent a modified barium swallow which she obviously failed and the patient was kept n.p.o. as the patient was noted to have aspiration. As such, the patient is not receiving any oral intake at this point. The patient's follow-up blood gases from today shows a pH of 7.49 with a PCO2 of 61 and pO2 of 77. Electrolytes show a sodium level of 137, potassium is at 4, bicarb is 43, BUN is 43 with a creatinine of 0.8. WBC count is at 9.2 with a hemoglobin of 14 and a platelet count of 195. The patient remains atrial fibrillation. Rate is controlled. The patient is currently off the Cardizem drip. Unfortunately, he has not been able to take his anticoagulants and he has not been able to take his beta-blockers. He remains on bronchodilators. He remains on IV Solu-Medrol 60 mg every 6 hours. The blood culture was positive for staph hominis. Vancomycin was added to the regimen and the patient remains on Rocephin. No agitation at this point. Will recommend another swallow evaluation on this patient. Will also order a CAT scan of the brain to rule out development of any stroke contributing to his ongoing dysphagia. 05/14/2025, the patient continues to have delusions and hallucinations. Occasional agitations. The patient has a sitter at the bedside and the patient is currently on Precedex running at 1.1 mcg/kg/h. The patient is unable to swallow. He does not aspirate. He has been kept n.p.o. for oral intake and medication. Meanwhile, he remains atrial fibrillation the patient is currently on Cardizem drip at 5 mg an hour for rate control. He is also on lactated Ringer at rate of 50 cc an hour. Chest x-ray findings are essentially unchanged . White cell count is 8.4, hemoglobin is 14.3 and a platelet of 169. Sodium is 134, potassium 3.9, BUN 36 with a creatinine 0.7. Serum bicarbonate 40. This morning, the patient is on oxygen at 3 L/min nasal cannula with a pulse ox of 95%. The patient underwent a CAT scan of the brain on 05/13/2025 and the findings are essentially nondiagnostic and it shows no acute abnormalities. The patient underwent a psychiatric evaluation today and the patient was found not to have any decision-making capacity. Guardianship is being established. In regards to his delirium, he will be started on Prolixin IM 3 mg twice a day for psychosis and agitation. History will be At the bedside. He will be kept n.p.o. for now. He remains on DuoNeb about treatments [id number]. He remains on IV Solu-Medrol. He remains on empiric antibiotic coverage with IV Rocephin. He is also on vancomycin and the patient's blood culture was positive for Staph hominis. Hemodynamically stable. No pressors for now. 05/15/2025, the patient is being seen for a follow-up. Awake and alert and communicating. Occasional delusions. No agitation. Sitter at the bedside. Neurologic exam is nonfocal. The patient remains on Precedex running at 1.2 mcg/kg/min. I personally performed a bedside swallow evaluation on this patient. The patient was able to swallow properly. He was given applesauce and he was able to feed himself without any major difficulties. No cough during the swallow process. No significant shortness of breath. The patient remains on lactated Ringer at rate of 50 cc an hour. Currently is on 40 Suboxone by nasal cannula. Remains in atrial fibrillation. Cardizem is running at 10 mg an hour. Hemodynamically stable. No pressors. The white cell count at 10.7 with a hemoglobin 15.1 and the platelet count of 170. BUN is 29 with a creatinine of 0.66. Sodium is at 134 and potassium level is at 3.9. Remains on DuoNeb nebulized treatments [id number]. Remains on IV Solu-Medrol 40 mg every 12 hours. Remains on Cardizem drip and the patient will be started on metoprolol for rate control at a dose of 50 mg p.o. twice a day. The patient will be also restarted back on his routine oral medications. Will keep anticoagulation on hold for now. In terms of antibiotic coverage, the patient remains on a combination of Rocephin and vancomycin. On 05/16/2025, the patient remains on Precedex and this has been weaned down to 0.8 mcg/kg/min. This being used to control his agitation and the patient seems to be less paranoid. He is very reasonable in his discussions today. He is able to answer questions and follow commands without any focal neurological deficits. In addition, the patient is able to swallow. Overnight, he was on a BiPAP pressure of 12 or 6 cm of water with an FiO2 of 60% and currently he is on 40 Suboxone by nasal cannula. He remains in atrial fibrillation. Cardizem drip has been discontinued and the patient is currently on metoprolol 50 mg p.o. twice daily. Will not use anticoagulants based on his condition and comorbidities. No other complaints otherwise for now. His blood work shows a white cell count of 13, hemoglobin is 15.1 and a platelet count of 163. Sodium is at 133, potassium is at 4, bicarb is at 34, BUN 31 with a creatinine of 0.6. Afebrile. No significant agitation. Antibiotic coverage remains a combination of Rocephin and vancomycin. Seen today on 05/17/2025, patient remains in the ICU on Precedex he is on 3 L/min nasal cannula, Precedex is being weaned, overall the patient is appropriate, seen by psychiatry and placed on Prolixin as needed. Patient is also on ceftriaxone. Seems to be definitely less agitated, very comfortable not in any distress, apparently had significant agitation last night and yesterday. Patient is able to swallow pured diet he is now on nasal cannula and not in distress. Remains in atrial fibrillation, rate is controlled, continues to have leukocytosis with WBC count of 18.9 hemoglobin is 13.9 electrolytes are normal renal profile is normal, chest x-ray shows scattered reticular opacities, left lower lobe atelectasis in the retrocardiac area. Patient was seen today on 05/20/2025, patient seems to be calm, not in distress, he is on 8 L high flow nasal cannula, O2 saturation is anywhere between 92 to 95%, patient denies any shortness of breath, he does have some productive thick purulent phlegm production. Chest x-ray yesterday showed mostly left lower lobe atelectasis and/or pneumonia he does have a large hiatal hernia and small bilateral pleural effusions with cardiomegaly. WBC count is 24,000's hemoglobin 14.1 electrolytes are normal bicarb is 37 BUN is 18 creatinine 0.60 Patient was seen today on 05/21/2025, patient is doing fairly well, still requiring at least 6 L high flow nasal cannula, O2 saturations in low 90s. Patient is calm, not as agitated as he was when he first came in. Continues to have productive cough with thick brown phlegm. Chest x-ray from 2 days ago continues to show left lower lobe pneumonia and large hiatal hernia with small bilateral pleural effusions and cardiomegaly patient remains on antibiotics, remains on multiple cardiac meds and Lasix at 40 mg p.o. daily. He is also on bronchodilators, improving but not back to baseline. Continues to have leukocytosis with WBC count of 24,000's hemoglobin 14.1 electrolytes are normal renal profile is normal bicarb is 37 Objective - Vital Signs Vital signs: Vital Signs Temp 98.2 F 05/21/25 12:28 Pulse 70 05/21/25 12:28 Resp 18 05/21/25 12:28 BP 110/70 05/21/25 12:28 Pulse Ox 91 L 05/21/25 12:28 FiO2 3 05/17/25 00:00 Intake & Output 05/20/25 05/21/25 05/21/25 18:59 06:59 18:59 Intake Total 730 250 Output Total 1100 800 250 Balance -370 -800 0 Weight 62 kg Intake: IV 10 10 Invasive Line 6 10 10 Oral 720 240 Output: Urine 1100 800 250 Other: Voiding Method External Catheter External Catheter External Catheter # Voids 1 - Exam GENERAL EXAM: 64-year-old male, awake and alert, on 6 L high flow nasal cannula HEAD: Normocephalic and atraumatic EYES: Normal reaction of pupils, equal size. Anicteric sclera. NOSE: Clear with pink turbinates. THROAT: No erythema or exudates. NECK: No masses, no JVD. CHEST: No chest wall deformity. LUNGS: Crackles at the bases no rhonchi no wheezes CVS: S1 and S2 normal with no audible murmur, irregular rhythm consistent with atrial fibrillation. No extra heart sounds ABDOMEN: No hepatosplenomegaly, active bowel sounds, no guarding or rigidity. Negative Zafar sign SKIN: Bilateral venous stasis dermatitis, right anterior weeping wound with dressing CENTRAL NERVOUS SYSTEM: Alert oriented x 3 no focal deficit EXTREMITIES: No clubbing edema or cyanosis - Labs CBC & Chem 7: 05/20/25 06:59 05/20/25 06:59 Labs: Abnormal Lab Results - Last 24 Hours (Table) 05/20/25 05/20/25 05/21/25 Range/Units 16:47 20:16 06:02 POC Glucose (mg/dL) 138 H 163 H 140 H (70-110) mg/dL 05/21/25 Range/Units 11:44 POC Glucose (mg/dL) 112 H (70-110) mg/dL Microbiology - Last 24 Hours (Table) 05/20/25 13:54 Gram Stain - Preliminary Sputum Sputum Culture - Preliminary 05/18/25 10:13 Blood Culture - Preliminary Blood Assessment and Plan Assessment: Impression: Acute hypoxic and hypercapnic respiratory failure secondary to acute exacerbation of COPD Acute diastolic congestive heart failure with tachyarrhythmia and supraventricular tachycardia requiring adenosine and Cardizem Acute leukocytosis Acute kidney injury History of loculated left-sided pleural effusion with previous pigtail catheter placement History of alcohol and Multi substance abuse Tobacco dependence syndrome Chronic dysphagia Staph hominis bacteremia Recommendation: Continue oxygen and titrate accordingly Continue updrafts for COPD Continue aspiration precautions and pured diet Continue antibiotics,/Zosyn Continue metoprolol 50 mg twice daily patient is now off Cardizem Continue GI and DVT prophylaxis Continue Prolixin 3 mg IM twice daily and 5 mg IM as needed Will continue to follow Time with Patient: Less than 30
--- NOTE | 2025-05-21 15:11 | P.PN ---
Subjective Progress Note Date: 05/21/25 Patient is a-64 year-old male with COPD, diabetes mellitus, history of alcohol use disorder, polysubstance abuse, loculated left-sided pleural effusion who initially presented on 05/09/2025 with altered mental status and acute hypoxic hypercapnic respiratory failure. He was initially seen in the ICU and placed on BiPAP and treated for pneumonia with Rocephin for 7 days and azithromycin. Blood culture revealed Staphylococcus hominis, and was subsequently started on vancomyci 05/20. Patient seen and examined. Dr. Shaw took over care. WBC 24, hemoglobin 14.1, platelet count 193, sodium 133, potassium 4.6, BUN 18, creatinine 0.60, glucose 108. Vital signs this morning is temperature 98, heart rate 84, respiration 18, blood pressure 96%, currently on 8 L of oxygen 05/21. Patient seen and examined. Stated he feels better compared to yesterday. Oxygen requirement improved to 6 L. Denying chest pain. Denies shortness of breath. Vital signs stable REVIEW OF SYSTEMS: CONSTITUTIONAL: No fever, no malaise,. CARDIOVASCULAR: No chest pain, no palpitations, no syncope. PULMONARY: No shortness of breath, no cough, GASTROINTESTINAL: No diarrhea, no nausea, no vomiting, no abdominal pain. NEUROLOGICAL: No headaches, no weakness, PHYSICAL EXAMINATION: GENERAL: The patient is alert and oriented x3, ill looking HEENT: Pupils are round and equally reacting to light. EOMI. No scleral icterus. No conjunctival pallor. Normocephalic, atraumatic. No pharyngeal erythema. No thyromegaly. CARDIOVASCULAR: S1 and S2 present. No murmurs, rubs, or gallops. PULMONARY: Coarse breath sounds bilaterally, no wheezing or crackles. ABDOMEN: Soft, nontender, nondistended, normoactive bowel sounds. No palpable organomegaly. MUSCULOSKELETAL: No joint swelling or deformity. EXTREMITIES: No cyanosis, clubbing, or pedal edema. NEUROLOGICAL: Gross neurological examination did not reveal any focal deficits. SKIN: No rashes. Assessment and plan Acute hypoxic and hypercapnic respiratory failure secondary to acute exacerbation of COPD Acute diastolic congestive heart failure with tachyarrhythmia and supraventricular tachycardia requiring adenosine and Cardizem Acute leukocytosis Acute kidney injury History of loculated left-sided pleural effusion with previous pigtail catheter placement History of alcohol and Multi substance abuse Tobacco dependence syndrome Chronic dysphagia Staph hominis bacteremia Monitor vital signs Monitor CBC Monitor CMP Continue telemetry monitoring Continue oxygen supplementation Continue breathing treatments Continue IV Zosyn Continue Lasix ID following Pulmonology following Labs and medication were reviewed.. Continue same treatment. Continue with symptomatic treatment. Resume home medication. Monitor labs and vitals. DVT and GI prophylaxis. Further recommendations as per clinical course of the patient Dictation was produced using [employer] dictation software. please excuse any grammatical, word or spelling errors. Objective - Vital Signs Vital signs: Vital Signs Temp 98.2 F 05/21/25 12:28 Pulse 70 05/21/25 12:28 Resp 18 05/21/25 12:28 BP 110/70 05/21/25 12:28 Pulse Ox 91 L 05/21/25 12:28 FiO2 3 05/17/25 00:00 Intake & Output 05/20/25 05/21/25 05/21/25 18:59 06:59 18:59 Intake Total 730 250 Output Total 1100 800 250 Balance -370 -800 0 Weight 62 kg Intake: IV 10 10 Invasive Line 6 10 10 Oral 720 240 Output: Urine 1100 800 250 Other: Voiding Method External Catheter External Catheter External Catheter # Voids 1 - Labs CBC & Chem 7: 05/20/25 06:59 05/20/25 06:59 Labs: Abnormal Lab Results - Last 24 Hours (Table) 05/20/25 05/20/25 05/21/25 Range/Units 16:47 20:16 06:02 POC Glucose (mg/dL) 138 H 163 H 140 H (70-110) mg/dL 05/21/25 Range/Units 11:44 POC Glucose (mg/dL) 112 H (70-110) mg/dL Microbiology - Last 24 Hours (Table) 05/20/25 13:54 Gram Stain - Preliminary Sputum Sputum Culture - Preliminary 05/18/25 10:13 Blood Culture - Preliminary Blood
[2025-05-21 16:35] LABS: Glucose,Whole Blood 157 mg/dL (70-110)
[2025-05-21 20:24] LABS: Glucose,Whole Blood 147 mg/dL (70-110)
--- NOTE | 2025-05-21 22:53 | P.PN ---
Subjective Progress Note Date: 05/21/25 Principal diagnosis: Reason for follow-up is leukocytosis/aspiration pneumonia Patient is a-year-old male with COPD, diabetes mellitus, history of alcohol use disorder, polysubstance abuse, loculated left-sided pleural effusion who initially presented on 05/09/2025 with altered mental status and acute hypoxic hypercapnic respiratory failure. He was initially seen in the ICU and placed on BiPAP and treated for pneumonia with Rocephin for 7 days and azithromycin. Blood culture revealed Staphylococcus hominis, and that has prompted this consultation. Patient subsequently had worsening of respiratory status and was concern for possible aspiration pneumonitis . On today's evaluation that is 05/21/2025, the patient continues to be afebrile, the patient is down to 5 L nasal oxygen and breathing slightly comfortably, the Pt denies having any chest pain or any worsening cough, the patient denies having any abdominal pain no vomiting or any diarrhea has been reported by the nursing staff. No lab draw today blood culture repeat and sputum cultures are pending Objective - Vital Signs Vital signs: Vital Signs Temp 98.4 F 05/21/25 15:09 Pulse 80 05/21/25 15:09 Resp 18 05/21/25 15:09 BP 113/74 05/21/25 15:09 Pulse Ox 95 05/21/25 15:09 FiO2 3 05/17/25 00:00 Intake & Output 05/20/25 05/21/25 05/21/25 18:59 06:59 18:59 Intake Total 730 250 Output Total 1100 800 950 Balance -370 -800 -700 Weight 62 kg Intake: IV 10 10 Invasive Line 6 10 10 Oral 720 240 Output: Urine 1100 800 950 Other: Voiding Method External Catheter External Catheter External Catheter # Voids 1 - Exam GENERAL DESCRIPTION: An elderly male, sitting upright in bed with no distress RESPIRATORY SYSTEM: Mildly labored breathing, bilateral rhonchi HEART: S1 S2 regular rate and rhythm ABDOMEN: Soft , no tenderness EXTREMITIES: No edema feet - Labs CBC & Chem 7: 05/20/25 06:59 05/20/25 06:59 Labs: Abnormal Lab Results - Last 24 Hours (Table) 05/20/25 05/20/25 05/21/25 Range/Units 16:47 20:16 06:02 POC Glucose (mg/dL) 138 H 163 H 140 H (70-110) mg/dL 05/21/25 Range/Units 11:44 POC Glucose (mg/dL) 112 H (70-110) mg/dL Microbiology - Last 24 Hours (Table) 05/20/25 13:54 Gram Stain - Preliminary Sputum Sputum Culture - Preliminary 05/18/25 10:13 Blood Culture - Preliminary Blood Assessment and Plan (1) Sepsis Current Visit: Yes Status: Acute Code(s): A41.9 - SEPSIS, UNSPECIFIED ORGANISM SNOMED Code(s): 97029589 (2) Pneumonia Current Visit: No Status: Acute Code(s): J18.9 - PNEUMONIA, UNSPECIFIED ORGANISM SNOMED Code(s): 740700714 (3) Bacteremia Current Visit: Yes Status: Acute Code(s): R78.81 - BACTEREMIA SNOMED Code(s): 5170053 Plan: 1. Patient initially treated for pneumonia with full course of Rocephin and azithromycin which resulted in improvement of symptoms and leukocytosis. 2. Blood culture positive for Staphylococcus hominis, which is believed to be likely contaminant. Repeat blood cultures currently pending. 3. Recurrent leukocytosis was thought to be due to prednisone use, as patient was afebrile, with no clear signs of infectious process and Vancomycin discontinued. 4. On 05/19/2025 overnight patient became increasingly dyspneic and placed on high flow nasal cannula with concern for possible aspiration pneumonitis sputum cultures obtained which are currently pending patient is requiring less supplemental oxygen white count was trending down as of yesterday no CBC was done today we will keep the patient on Zosyn and monitor clinical course closely Dictation was produced using [employer] dictation software. please excuse any grammatical, word or spelling errors. Time with Patient: Less than 30
[2025-05-22 06:09] LABS: Glucose,Whole Blood 346 mg/dL (70-110)
[2025-05-22 11:26] LABS: Glucose,Whole Blood 125 mg/dL (70-110)
--- NOTE | 2025-05-22 11:30 | P.PN ---
Subjective Progress Note Date: 05/22/25 Principal diagnosis: Acute hypoxic and hypercapnic respiratory failure secondary to acute exacerbation of COPD and mild congestive heart failure with tachyarrhythmia and SVT Patient is a 64-year-old male with past medical history significant for COPD, DVT/PE, loculated left-sided pleural effusion, alcohol abuse, polysubstance abuse. Patient brought in by EMS yesterday evening. Reportedly, the patient is homeless. He was at a friend's house the previous day and noted to be increasingly confused and lethargic. When EMS arrived the patient's pulse ox was reportedly 59%. He was barely responsive, requiring BVM ventilation. The patient was not intubated. Transitioned to BiPAP on arrival. Found to be in SVT, given IV push adenosine 6 mg and then 12 mg which reportedly terminated the arrhythmia. Later, the patient went into atrial fibrillation with RVR. He was given a Cardizem IV bolus and placed on a Cardizem infusion. Further workup including a chest x-ray showing cardiomegaly, pulmonary vascular congestion, and possible small left pleural effusion. He was given 80 mg of total IV Lasix in the ED. Labs including a CBC with a WBC count of 22.4, hemoglobin 15.2, platelets 244. CMP with a sodium of 141, potassium 5.5, chloride 94, serum bicarb 39, BUN 48, creatinine 1.85, glucose 119. Lactic 2.1. AST 1503, ALT 1178, ALP 129. Troponin 0[place] [address]. D-dimer also was elevated has 7.3. Patient was previously systemically heparinized for the atrial fibrillation. Ultrasound of abdomen remarkable for dilated CBD measuring up to 7 mm in diameter. No evidence of obstructing stone. Patient is now being evaluated in intensive care unit. He remains on BiPAP with current settings 12/6 and FiO2 of 80%. He does wake up to verbal stimuli and has sustained awakening. BiPAP does make it difficult to communicate. Follow-up ABG with some improvement, done on FiO2 of 100% with a PaO2 of 153, pCO2 of 74, pH of 7.31. He does have lower extremity edema. He has an external urinary catheter, and there is 650 cc of urine collected. Continues on Cardizem at 10 mg/h. Also, systemically heparinized. Current rhythm appears to be normal sinus in the mid 70s beats per minute. Blood pressure is normotensive. He was previously empi rically covered on azithromycin and Rocephin. Afebrile. On 05/11/2025, the patient is being seen for a follow-up. On today's evaluation, the patient denies having any significant shortness of breath. He is currently on oxygen 6 L/min nasal cannula and BiPAP has been discontinued. IV fluids are currently at KVO. He is slightly delusional and he thinks that were causing more harm to his care in the ICU. He remains in atrial fibrillation. Cardizem drip is still running at 50 mg an hour and the patient remains on IV heparin. Blood cultures positive for coagulase-negative staph, likely contaminant. He seems to be less short of breath compared to yesterday. He is able to communicate. The white cell count is 15, improved compared to yesterday with hemoglobin 14.7 and a platelet count of 242. The patient's BUN is 58 with a creatinine of 1.1 and the creatinine is improved compared to yesterday. Serum bicarb is 46, sodium is 142 with a potassium level of 4 and a chloride of 91. His procalcitonin level is at 2.27. His UA was negative. A follow-up chest x- ray was done today and it shows COPD with some mild pulm vascular congestion. Left base underpenetrated and not well assessed. The patient remains on broad- spectrum antibiotics. The patient remains on a combination of Rocephin and and Zithromax. His echocardiogram was also completed and the patient has a normal ejection fraction of 55 to 60%. The patient has mild decrease in septal wall thickening, mild RV dilatation, mild PA pressures elevation. No significant valvular abnormalities. On 05/12/2025, the patient is being seen for a follow-up. The patient was having episodes of delirium and the patient was placed on Precedex and currently is off Precedex. He also experienced worsening shortness of breath and the patient was placed on BiPAP at a pressure of 12/6 with an FiO2 of 50%. Subsequently, he was taken off the BiPAP and the patient is currently on 5 L of oxygen nasal cannula. He remains atrial fibrillation. Cardizem drip is running at 2.5 mg an hour. The patient was unable to take his oral medication due to concerns of dysphagia. A modified barium swallow was also ordered. Fluid balance is +213 cc over the past 24 hours. He remains in atrial fibrillation and he does have some underlying tachycardia. The white cell count is at 10.9 with a heme of 13.8 and a platelet count of 177. Electrolytes show a sodium level of 138, bicarbonate 40, BUN 59 with a creatinine 0.8. Blood sugars at 170. The patient remains on DuoNeb updrafts. The patient remains on IV Rocephin and Zithromax. The patient remains on anticoagulation with Eliquis and the medication was going to be given to him with applesauce. He is also on Lopressor 25 mg twice a day. Remains on IV Solu-Medrol. Chest x-ray shows no acute abnormalities and is consistent with COPD. Modified barium swallow is to follow. On 05/13/2025, the patient is awake. He continues to have episodes of confusion and some paranoid ideations. Nevertheless, neurologically, he is exam is nonfocal and is able to move all 4 extremities without any limitations. Denies having any shortness of breath. He remains on oxygen 66/min nasal cannula. However, he is having difficulties with swallowing. The patient was seen by speech pathology and the patient underwent a modified barium swallow which she obviously failed and the patient was kept n.p.o. as the patient was noted to have aspiration. As such, the patient is not receiving any oral intake at this point. The patient's follow-up blood gases from today shows a pH of 7.49 with a PCO2 of 61 and pO2 of 77. Electrolytes show a sodium level of 137, potassium is at 4, bicarb is 43, BUN is 43 with a creatinine of 0.8. WBC count is at 9.2 with a hemoglobin of 14 and a platelet count of 195. The patient remains atrial fibrillation. Rate is controlled. The patient is currently off the Cardizem drip. Unfortunately, he has not been able to take his anticoagulants and he has not been able to take his beta-blockers. He remains on bronchodilators. He remains on IV Solu-Medrol 60 mg every 6 hours. The blood culture was positive for staph hominis. Vancomycin was added to the regimen and the patient remains on Rocephin. No agitation at this point. Will recommend another swallow evaluation on this patient. Will also order a CAT scan of the brain to rule out development of any stroke contributing to his ongoing dysphagia. 05/14/2025, the patient continues to have delusions and hallucinations. Occasional agitations. The patient has a sitter at the bedside and the patient is currently on Precedex running at 1.1 mcg/kg/h. The patient is unable to swallow. He does not aspirate. He has been kept n.p.o. for oral intake and medication. Meanwhile, he remains atrial fibrillation the patient is currently on Cardizem drip at 5 mg an hour for rate control. He is also on lactated Ringer at rate of 50 cc an hour. Chest x-ray findings are essentially unchanged . White cell count is 8.4, hemoglobin is 14.3 and a platelet of 169. Sodium is 134, potassium 3.9, BUN 36 with a creatinine 0.7. Serum bicarbonate 40. This morning, the patient is on oxygen at 3 L/min nasal cannula with a pulse ox of 95%. The patient underwent a CAT scan of the brain on 05/13/2025 and the findings are essentially nondiagnostic and it shows no acute abnormalities. The patient underwent a psychiatric evaluation today and the patient was found not to have any decision-making capacity. Guardianship is being established. In regards to his delirium, he will be started on Prolixin IM 3 mg twice a day for psychosis and agitation. History will be At the bedside. He will be kept n.p.o. for now. He remains on DuoNeb about treatments [id number]. He remains on IV Solu-Medrol. He remains on empiric antibiotic coverage with IV Rocephin. He is also on vancomycin and the patient's blood culture was positive for Staph hominis. Hemodynamically stable. No pressors for now. 05/15/2025, the patient is being seen for a follow-up. Awake and alert and communicating. Occasional delusions. No agitation. Sitter at the bedside. Neurologic exam is nonfocal. The patient remains on Precedex running at 1.2 mcg/kg/min. I personally performed a bedside swallow evaluation on this patient. The patient was able to swallow properly. He was given applesauce and he was able to feed himself without any major difficulties. No cough during the swallow process. No significant shortness of breath. The patient remains on lactated Ringer at rate of 50 cc an hour. Currently is on 40 Suboxone by nasal cannula. Remains in atrial fibrillation. Cardizem is running at 10 mg an hour. Hemodynamically stable. No pressors. The white cell count at 10.7 with a hemoglobin 15.1 and the platelet count of 170. BUN is 29 with a creatinine of 0.66. Sodium is at 134 and potassium level is at 3.9. Remains on DuoNeb nebulized treatments [id number]. Remains on IV Solu-Medrol 40 mg every 12 hours. Remains on Cardizem drip and the patient will be started on metoprolol for rate control at a dose of 50 mg p.o. twice a day. The patient will be also restarted back on his routine oral medications. Will keep anticoagulation on hold for now. In terms of antibiotic coverage, the patient remains on a combination of Rocephin and vancomycin. On 05/16/2025, the patient remains on Precedex and this has been weaned down to 0.8 mcg/kg/min. This being used to control his agitation and the patient seems to be less paranoid. He is very reasonable in his discussions today. He is able to answer questions and follow commands without any focal neurological deficits. In addition, the patient is able to swallow. Overnight, he was on a BiPAP pressure of 12 or 6 cm of water with an FiO2 of 60% and currently he is on 40 Suboxone by nasal cannula. He remains in atrial fibrillation. Cardizem drip has been discontinued and the patient is currently on metoprolol 50 mg p.o. twice daily. Will not use anticoagulants based on his condition and comorbidities. No other complaints otherwise for now. His blood work shows a white cell count of 13, hemoglobin is 15.1 and a platelet count of 163. Sodium is at 133, potassium is at 4, bicarb is at 34, BUN 31 with a creatinine of 0.6. Afebrile. No significant agitation. Antibiotic coverage remains a combination of Rocephin and vancomycin. Seen today on 05/17/2025, patient remains in the ICU on Precedex he is on 3 L/min nasal cannula, Precedex is being weaned, overall the patient is appropriate, seen by psychiatry and placed on Prolixin as needed. Patient is also on ceftriaxone. Seems to be definitely less agitated, very comfortable not in any distress, apparently had significant agitation last night and yesterday. Patient is able to swallow pured diet he is now on nasal cannula and not in distress. Remains in atrial fibrillation, rate is controlled, continues to have leukocytosis with WBC count of 18.9 hemoglobin is 13.9 electrolytes are normal renal profile is normal, chest x-ray shows scattered reticular opacities, left lower lobe atelectasis in the retrocardiac area. Patient was seen today on 05/20/2025, patient seems to be calm, not in distress, he is on 8 L high flow nasal cannula, O2 saturation is anywhere between 92 to 95%, patient denies any shortness of breath, he does have some productive thick purulent phlegm production. Chest x-ray yesterday showed mostly left lower lobe atelectasis and/or pneumonia he does have a large hiatal hernia and small bilateral pleural effusions with cardiomegaly. WBC count is 24,000's hemoglobin 14.1 electrolytes are normal bicarb is 37 BUN is 18 creatinine 0.60 Patient was seen today on 05/21/2025, patient is doing fairly well, still requiring at least 6 L high flow nasal cannula, O2 saturations in low 90s. Patient is calm, not as agitated as he was when he first came in. Continues to have productive cough with thick brown phlegm. Chest x-ray from 2 days ago continues to show left lower lobe pneumonia and large hiatal hernia with small bilateral pleural effusions and cardiomegaly patient remains on antibiotics, remains on multiple cardiac meds and Lasix at 40 mg p.o. daily. He is also on bronchodilators, improving but not back to baseline. Continues to have leukocytosis with WBC count of 24,000's hemoglobin 14.1 electrolytes are normal renal profile is normal bicarb is 37 Seen today on 05/22/2025, patient is now on 5 L nasal cannula, sitting at the bedside chair, does not seem to be in any distress, he is calm, feeling better o verall. Patient is being followed by infectious disease for his sepsis, pneumonia, and questionable bacteremia felt to be a contaminant Staphylococcus hominis in the blood. WBC count is coming down is down to 24,000 today hemoglobin is 14.1 electrolytes are normal bicarb is 37 BUN 18 creatinine 0.6. His last chest x-ray showed left lower lobe atelectasis/pneumonia and large hiatal hernia with small bilateral pleural effusions and cardiomegaly. Objective - Vital Signs Vital signs: Vital Signs Temp 98.3 F 05/22/25 07:51 Pulse 78 05/22/25 08:20 Resp 18 05/22/25 08:00 BP 120/63 05/22/25 07:51 Pulse Ox 93 L 05/22/25 08:09 FiO2 3 05/17/25 00:00 Intake & Output 05/21/25 05/22/25 05/22/25 18:59 06:59 18:59 Intake Total 480 480 Output Total 2450 Balance -1969 480 Weight 62 kg Intake: IV 10 Invasive Line 6 10 Oral 470 480 Output: Urine 2450 Other: Voiding Method External Catheter Urinal Urinal # Voids 1 1 # Bowel Movements 1 - Exam GENERAL EXAM: 64-year-old male, awake and alert, on 5 L high flow nasal cannula, O2 saturation 94%. HEAD: Normocephalic and atraumatic EYES: Normal reaction of pupils, equal size. Anicteric sclera. NOSE: Clear with pink turbinates. THROAT: No erythema or exudates. NECK: No masses, no JVD. CHEST: No chest wall deformity. LUNGS: Crackles at the bases no rhonchi no wheezes CVS: S1 and S2 normal with no audible murmur, irregular rhythm consistent with a trial fibrillation. No extra heart sounds ABDOMEN: No hepatosplenomegaly, active bowel sounds, no guarding or rigidity. Negative Zafar sign SKIN: Bilateral venous stasis dermatitis, right anterior weeping wound with dressing CENTRAL NERVOUS SYSTEM: Alert oriented x 3 no focal deficit EXTREMITIES: No clubbing edema or cyanosis - Labs CBC & Chem 7: 05/20/25 06:59 05/20/25 06:59 Labs: Abnormal Lab Results - Last 24 Hours (Table) 05/21/25 05/21/25 05/21/25 Range/Units 11:44 16:33 20:23 POC Glucose (mg/dL) 112 H 157 H 147 H (70-110) mg/dL 05/22/25 Range/Units 06:07 POC Glucose (mg/dL) 346 H (70-110) mg/dL Microbiology - Last 24 Hours (Table) 05/20/25 13:54 Gram Stain - Final Sputum Sputum Culture - Final 05/18/25 10:13 Blood Culture - Preliminary Blood Assessment and Plan Assessment: Impression: Acute hypoxic and hypercapnic respiratory failure secondary to acute exacerbation of COPD Acute diastolic congestive heart failure with tachyarrhythmia and supraventricular tachycardia requiring adenosine and Cardizem Acute leukocytosis Acute kidney injury History of loculated left-sided pleural effusion with previous pigtail catheter placement History of alcohol and Multi substance abuse Tobacco dependence syndrome Chronic dysphagia Staph hominis bacteremia Recommendation: Continue oxygen and titrate accordingly Continue updrafts for COPD Continue aspiration precautions and pured diet Continue antibiotics,/Zosyn Continue metoprolol 50 mg twice daily Continue GI and DVT prophylaxis Continue Prolixin 3 mg IM twice daily and 5 mg IM as needed Not quite ready for discharge planning could consider discharge hopefully in the next 48 hours. Will continue to follow Time with Patient: Less than 30
--- NOTE | 2025-05-22 15:42 | P.PN ---
Subjective Progress Note Date: 05/22/25 Patient is a-64 year-old male with COPD, diabetes mellitus, history of alcohol use disorder, polysubstance abuse, loculated left-sided pleural effusion who initially presented on 05/09/2025 with altered mental status and acute hypoxic hypercapnic respiratory failure. He was initially seen in the ICU and placed on BiPAP and treated for pneumonia with Rocephin for 7 days and azithromycin. Blood culture revealed Staphylococcus hominis, and was subsequently started on vancomyci 05/20. Patient seen and examined. Dr. Shaw took over care. WBC 24, hemoglobin 14.1, platelet count 193, sodium 133, potassium 4.6, BUN 18, creatinine 0.60, glucose 108. Vital signs this morning is temperature 98, heart rate 84, respiration 18, blood pressure 96%, currently on 8 L of oxygen 05/21. Patient seen and examined. Stated he feels better compared to yesterday. Oxygen requirement improved to 6 L. Denying chest pain. Denies shortness of breath. Vital signs stable 05/22. Patient stated that he is feeling much better today. Currently on 5 L of oxygen. Patient is on IV diuretics in the form of Lasix 20 mg twice daily. Patient is continued on IV Zosyn. REVIEW OF SYSTEMS: CONSTITUTIONAL: No fever, no malaise,. CARDIOVASCULAR: No chest pain, no palpitations, no syncope. PULMONARY: No shortness of breath, no cough, GASTROINTESTINAL: No diarrhea, no nausea, no vomiting, no abdominal pain. NEUROLOGICAL: No headaches, no weakness, PHYSICAL EXAMINATION: GENERAL: The patient is alert and oriented x3, ill looking HEENT: Pupils are round and equally reacting to light. EOMI. No scleral icterus. No conjunctival pallor. Normocephalic, atraumatic. No pharyngeal erythema. No thyromegaly. CARDIOVASCULAR: S1 and S2 present. No murmurs, rubs, or gallops. PULMONARY: Coarse breath sounds bilaterally, no wheezing or crackles. ABDOMEN: Soft, nontender, nondistended, normoactive bowel sounds. No palpable organomegaly. MUSCULOSKELETAL: No joint swelling or deformity. EXTREMITIES: No cyanosis, clubbing, or pedal edema. NEUROLOGICAL: Gross neurological examination did not reveal any focal deficits. SKIN: No rashes. Assessment and plan Acute hypoxic and hypercapnic respiratory failure secondary to acute exacerbation of COPD Acute diastolic congestive heart failure with tachyarrhythmia and supra ventricular tachycardia requiring adenosine and Cardizem Acute leukocytosis Acute kidney injury History of loculated left-sided pleural effusion with previous pigtail catheter placement History of alcohol and Multi substance abuse Tobacco dependence syndrome Chronic dysphagia Staph hominis bacteremia Monitor vital signs Monitor CBC Monitor CMP Continue telemetry monitoring Continue oxygen supplementation Continue breathing treatments Continue IV Zosyn Continue Lasix 20 twice daily Continue Lopressor ID following Pulmonology following Labs and medication were reviewed.. Continue same treatment. Continue with symptomatic treatment. Resume home medication. Monitor labs and vitals. DVT a nd GI prophylaxis. Further recommendations as per clinical course of the patient Dictation was produced using [employer] dictation software. please excuse any grammatical, word or spelling errors. Objective - Vital Signs Vital signs: Vital Signs Temp 98.3 F 05/22/25 07:51 Pulse 78 05/22/25 08:20 Resp 18 05/22/25 08:00 BP 120/63 05/22/25 07:51 Pulse Ox 93 L 05/22/25 08:09 FiO2 3 05/17/25 00:00 Intake & Output 05/21/25 05/22/25 05/22/25 18:59 06:59 18:59 Intake Total 480 480 Output Total 2450 Balance -1970 480 Weight 62 kg Intake: IV 10 Invasive Line 6 10 Oral 470 480 Output: Urine 2450 Other: Voiding Method External Catheter Urinal Urinal # Voids 1 1 # Bowel Movements 1 - Labs CBC & Chem 7: 05/20/25 06:59 05/20/25 06:59 Labs: Abnormal Lab Results - Last 24 Hours (Table) 05/21/25 05/21/25 05/22/25 Range/Units 16:33 20:23 06:07 POC Glucose (mg/dL) 157 H 147 H 346 H (70-110) mg/dL 05/22/25 Range/Units 11:24 POC Glucose (mg/dL) 125 H (70-110) mg/dL Microbiology - Last 24 Hours (Table) 05/20/25 13:54 Gram Stain - Final Sputum Sputum Culture - Final 05/18/25 10:13 Blood Culture - Preliminary Blood
[2025-05-22 16:19] LABS: Glucose,Whole Blood 165 mg/dL (70-110)
--- NOTE | 2025-05-22 16:30 | P.PN ---
Subjective Progress Note Date: 05/22/25 Principal diagnosis: Reason for follow-up is leukocytosis/aspiration pneumonia Patient is a-year-old male with COPD, diabetes mellitus, history of alcohol use disorder, polysubstance abuse, loculated left-sided pleural effusion who initially presented on 05/09/2025 with altered mental status and acute hypoxic hypercapnic respiratory failure. He was initially seen in the ICU and placed on BiPAP and treated for pneumonia with Rocephin for 7 days and azithromycin. Blood culture revealed Staphylococcus hominis, and that has prompted this consultation. Patient subsequently had worsening of respiratory status and was concern for possible aspiration pneumonitis On today's evaluation that is 05/22/2024, patient did have a temperature of 98.3 F this morning and denies having any chills, patient is on 6 L nasal cannula oxygen admission breathing slightly comfortably denies any chest pain or worsening cough no abdominal pain or diarrhea. No new lab has been obtained today blood and sputum culture have been negative so far Objective - Vital Signs Vital signs: Vital Signs Temp 98.3 F 05/22/25 07:51 Pulse 78 05/22/25 08:20 Resp 18 05/22/25 08:00 BP 120/63 05/22/25 07:51 Pulse Ox 93 L 05/22/25 08:09 FiO2 3 05/17/25 00:00 Intake & Output 05/21/25 05/22/25 05/22/25 18:59 06:59 18:59 Intake Total 480 480 Output Total 2450 Balance -1970 480 Weight 62 kg Intake: IV 10 Invasive Line 6 10 Oral 470 480 Output: Urine 2450 Other: Voiding Method External Catheter Urinal Urinal # Voids 1 1 # Bowel Movements 1 - Exam GENERAL DESCRIPTION: An elderly male, sitting upright in bed with no distress RESPIRATORY SYSTEM: Mildly labored breathing, bilateral rhonchi HEART: S1 S2 regular rate and rhythm ABDOMEN: Soft , no tenderness EXTREMITIES: No edema feet - Labs CBC & Chem 7: 05/20/25 06:59 05/20/25 06:59 Labs: Abnormal Lab Results - Last 24 Hours (Table) 05/21/25 05/21/25 05/22/25 Range/Units 16:33 20:23 06:07 POC Glucose (mg/dL) 157 H 147 H 346 H (70-110) mg/dL 05/22/25 05/22/25 Range/Units 11:24 16:18 POC Glucose (mg/dL) 125 H 165 H (70-110) mg/dL Microbiology - Last 24 Hours (Table) 05/20/25 13:54 Gram Stain - Final Sputum Sputum Culture - Final 05/18/25 10:13 Blood Culture - Preliminary Blood Assessment and Plan (1) Sepsis Current Visit: Yes Status: Acute Code(s): A41.9 - SEPSIS, UNSPECIFIED ORGANISM SNOMED Code(s): 81923194 (2) Pneumonia Current Visit: No Status: Acute Code(s): J18.9 - PNEUMONIA, UNSPECIFIED ORGANISM SNOMED Code(s): 524716317 (3) Bacteremia Current Visit: Yes Status: Acute Code(s): R78.81 - BACTEREMIA SNOMED Code(s): 4672981 Plan: 1. Patient initially treated for pneumonia with full course of Rocephin and azithromycin which resulted in improvement of symptoms and leukocytosis. 2. Blood culture positive for Staphylococcus hominis, which is believed to be likely contaminant. Repeat blood cultures currently pending. 3. Recurrent leukocytosis was thought to be due to prednisone use, as patient was afebrile, with no clear signs of infectious process and Vancomycin di scontinued. 4. On 05/19/2025 overnight patient became increasingly dyspneic and placed on high flow nasal cannula with concern for possible aspiration pneumonitis 5. Blood sputum cultures so far negative we will continue patient on Zosyn and monitor clinical course closely Dictation was produced using [employer] dictation software. please excuse any grammatical, word or spelling errors. Time with Patient: Less than 30
[2025-05-22 20:15] LABS: Glucose,Whole Blood 204 mg/dL (70-110)
[2025-05-23 06:01] LABS: Glucose,Whole Blood 96 mg/dL (70-110)
[2025-05-23 07:39] LABS: Basophils # (A) 0.01 10*3/uL (0.00-0.10); Basophils % (A) 0.1 %; Eosinophils # (A) 0.01 10*3/uL (0.04-0.35); Eosinophils % (A) 0.1 %; HCT 38.1 % (39.6-50.0); HGB 12.4 g/dL (13.0-17.0); Lymphocytes # (A) 1.56 10*3/uL (0.90-5.00); Lymphocytes % (A) 11.4 %; MCH 31.0 pg (27.0-32.0); MCHC 32.5 g/dL (32.0-37.0); MCV 95.3 fL (80.0-97.0); Monocytes # (A) 0.94 10*3/uL (0.20-1.00); Monocytes % (A) 6.9 %; Neutrophils # (A) 11.06 10*3/uL (1.80-7.70); Neutrophils % (A) 81.1 %; Platelet Count 239 10*3/uL (140-440); RBC 4.00 10*6/uL (4.40-5.60); RDW 13.2 % (11.5-14.5); WBC 13.63 10*3/uL (4.50-10.00)
[2025-05-23 08:11] LABS: ALT 65 U/L (4-49); AST 21 U/L (17-59); African American GFR (CKD) >90 (>60 ml/min/1.73 sqM); Albumin 2.5 g/dL (3.5-5.0); Alkaline Phosphatase 73 U/L (38-126); Blood Urea Nitrogen 25 mg/dL (9-20); Calcium 8.4 mg/dL (8.4-10.2); Chloride 92 mmol/L (98-107); Glucose 88 mg/dL (74-99); Non-African American GFR(CKD) >90 (>60 ml/min/1.73 sqM); Potassium 3.7 mmol/L (3.5-5.1); Sodium 134 mmol/L (137-145); Total Protein 4.8 g/dL (6.3-8.2)
[2025-05-23 08:22] LABS: Anion Gap 4 mmol/L
[2025-05-23 08:25] LABS: Carbon Dioxide 38 mmol/L (22-30)
[2025-05-23 11:31] LABS: Glucose,Whole Blood 95 mg/dL (70-110)
--- NOTE | 2025-05-23 12:38 | P.PN ---
Subjective Progress Note Date: 05/23/25 05/15/2025, the patient is being seen for a follow-up. Awake and alert and communicating. Occasional delusions. No agitation. Sitter at the bedside. Neurologic exam is nonfocal. The patient remains on Precedex running at 1.2 mcg/kg/min. I personally performed a bedside swallow evaluation on this pat ient. The patient was able to swallow properly. He was given applesauce and he was able to feed himself without any major difficulties. No cough during the swallow process. No significant shortness of breath. The patient remains on lactated Ringer at rate of 50 cc an hour. Currently is on 40 Suboxone by nasal cannula. Remains in atrial fibrillation. Cardizem is running at 10 mg an hour. Hemodynamically stable. No pressors. The white cell count at 10.7 with a hemoglobin 15.1 and the platelet count of 170. BUN is 29 with a creatinine of 0.66. Sodium is at 134 and potassium level is at 3.9. Remains on DuoNeb nebulized treatments [id number]. Remains on IV Solu-Medrol 40 mg every 12 hours. Remains on Cardizem drip and the patient will be started on metoprolol for rate control at a dose of 50 mg p.o. twice a day. The patient will be also restarted back on his routine oral medications. Will keep anticoagulation on hold for now. In terms of antibiotic coverage, the patient remains on a combination of Rocephin and vancomycin. On 05/16/2025, the patient remains on Precedex and this has been weaned down to 0.8 mcg/kg/min. This being used to control his agitation and the patient seems to be less paranoid. He is very reasonable in his discussions today. He is able to answer questions and follow commands without any focal neurological deficits. In addition, the patient is able to swallow. Overnight, he was on a BiPAP pressure of 12 or 6 cm of water with an FiO2 of 60% and currently he is on 40 Suboxone by nasal cannula. He remains in atrial fibrillation. Cardizem drip has been discontinued and the patient is currently on metoprolol 50 mg p.o. twice daily. Will not use anticoagulants based on his condition and comorbidities. No other complaints otherwise for now. His blood work shows a white cell count of 13, hemoglobin is 15.1 and a platelet count of 163. Sodium is at 133, potassium is at 4, bicarb is at 34, BUN 31 with a creatinine of 0.6. Afebrile. No significant agitation. Antibiotic coverage remains a combination of Rocephin and vancomycin. Seen today on 05/17/2025, patient remains in the ICU on Precedex he is on 3 L/min nasal cannula, Precedex is being weaned, overall the patient is appropriate, seen by psychiatry and placed on Prolixin as needed. Patient is also on ceftriaxone. Seems to be definitely less agitated, very comfortable not in any distress, apparently had significant agitation last night and yesterday. Patient is able to swallow pured diet he is now on nasal cannula and not in distress. Remains in atrial fibrillation, rate is controlled, continues to have leukocytosis with WBC count of 18.9 hemoglobin is 13.9 electrolytes are normal renal profile is normal, chest x-ray shows scattered reticular opacities, left lower lobe atelectasis in the retrocardiac area. The patient is seen today May 18, 2025 in follow-up on the regular medical floor. He was transferred out of the intensive care unit yesterday. He is currently resting in bed. Awake and alert in no acute distress. Maintaining O2 saturations in the 90s on 3 L/min per nasal cannula. He is afebrile. Hemodynamically stable. Glucose 113. Earlier blood culture revealed Staphylococcus hominis. The patient remains on vancomycin. He is continued on DuoNeb and elations, Pulmicort and Perforomist inhalations, prednisone taper. NicoDerm patch in place. Remains on the CIWA protocol. He is continued on his Suboxone. He was initiated on Prolixin by psychiatry. The patient is seen today May 19, 2025 in follow-up on the regular medical floor. He is currently sitting up in bed having lunch. Awake and alert in no acute distress. Still confused at times. 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 He is currently on 10 L high flow nasal cannula. He is afebrile. Hemodynamically stable. Chest x-ray continues to show a left lower lobe atelectasis. There is a large hiatal hernia. Small bilateral effusions. Cardiomegaly. Blood culture initially was positive for Staph hominis. White count 30.0. Hemoglobin 15.1. Platelets 206. Sodium 135. Potassium 3.4. Bicarb 38. BUN 20. Creatinine 0.55. Glucose 71. He remains on DuoNeb and elations, Pulmicort and Perforomist inhalations, prednisone taper. NicoDerm patch in place. Continued on Zosyn. The patient is seen today May 23, 2025 in follow-up on the regular medical floor. He is currently sitting up in bed. Awake and alert in no acute distress. Maintaining O2 saturation in the low 90s on 6 L high flow nasal cannula. He has been afebrile. Hemodynamically stable. Follow-up blood cultures revealed no growth. Sputum culture revealed no growth. White count 13.6. Hemoglobin 12.4. Platelets 239. Sodium 134. Potassium 3.7. Bicarb 38. BUN 25. Creatinine 0.67. He is continued on DuoNeb inhalations, Pulmicort and Perforomist inhalations, prednisone taper. Antibiotics in the form of Zosyn. Remains on oral diuretics. NicoDerm patch in place. Objective - Vital Signs Vital signs: Vital Signs Temp 98.1 F 05/23/25 07:57 Pulse 88 05/23/25 07:59 Resp 18 05/23/25 07:59 BP 96/70 05/23/25 07:57 Pulse Ox 91 L 05/23/25 07:57 FiO2 3 05/17/25 00:00 Intake & Output 05/22/25 05/23/25 05/23/25 18:59 06:59 18:59 Intake Total 720 720 240 Output Total 775 750 Balance -55 -30 240 Weight 60.5 kg Intake: Oral 720 720 240 Output: Urine 775 750 Other: Voiding Method Urinal Urinal Urinal # Voids 1 1 # Bowel Movements 1 - Exam GENERAL EXAM: Alert, confused at times 64-year-old male, on 6 L nasal cannula, fairly comfortable in no apparent distress. HEAD: Normocephalic. EYES: Normal reaction of pupils, equal size. NOSE: Clear with pink turbinates. THROAT: No erythema or exudates. NECK: No masses, no JVD. CHEST: No chest wall deformity. LUNGS: Equal air entry with bilateral scattered rhonchi. CVS: S1 and S2 normal with no audible murmur, irregular rhythm. ABDOMEN: No hepatosplenomegaly, normal bowel sounds, no guarding or rigidity. SPINE: No scoliosis or deformity SKIN: No rashes CENTRAL NERVOUS SYSTEM: No focal deficits, tone is normal in all 4 extremities. EXTREMITIES: There is no peripheral edema. No clubbing, no cyanosis. Peripheral pulses are intact. - Labs CBC & Chem 7: 05/23/25 06:42 05/23/25 06:42 Labs: Abnormal Lab Results - Last 24 Hours (Table) 05/22/25 05/22/25 05/23/25 Range/Units 16:18 20:13 06:42 WBC 13.63 H (4.50-10.00) 10*3/uL RBC 4.00 L (4.40-5.60) 10*6/uL Hgb 12.4 L (13.0-17.0) g/dL Hct 38.1 L (39.6-50.0) % Immature Gran # 0.05 H (0.00-0.04) 10*3/uL Neutrophils # 11.06 H (1.80-7.70) 10*3/uL Eosinophils # 0.01 L (0.04-0.35) 10*3/uL Sodium (137-145) mmol/L Chloride (98-107) mmol/L Carbon Dioxide (22-30) mmol/L BUN (9-20) mg/dL POC Glucose (mg/dL) 165 H 204 H (70-110) mg/dL ALT (4-49) U/L Total Protein (6.3-8.2) g/dL Albumin (3.5-5.0) g/dL 05/23/25 Range/Units 06:42 WBC (4.50-10.00) 10*3/uL RBC (4.40-5.60) 10*6/uL Hgb (13.0-17.0) g/dL Hct (39.6-50.0) % Immature Gran # (0.00-0.04) 10*3/uL Neutrophils # (1.80-7.70) 10*3/uL Eosinophils # (0.04-0.35) 10*3/uL Sodium 134 L (137-145) mmol/L Chloride 92 L (98-107) mmol/L Carbon Dioxide 38 H (22-30) mmol/L BUN 25 H (9-20) mg/dL POC Glucose (mg/dL) (70-110) mg/dL ALT 65 H (4-49) U/L Total Protein 4.8 L (6.3-8.2) g/dL Albumin 2.5 L (3.5-5.0) g/dL Microbiology - Last 24 Hours (Table) 05/20/25 13:54 Gram Stain - Final Sputum Sputum Culture - Final Assessment and Plan Assessment: Acute hypoxic and hypercapnic respiratory failure secondary to acute exacerbation of COPD Acute diastolic congestive heart failure with tachyarrhythmia and sup raventricular tachycardia requiring adenosine and Cardizem Acute leukocytosis Acute kidney injury History of loculated left-sided pleural effusion with previous pigtail catheter placement History of alcohol and Multi substance abuse Tobacco dependence syndrome Chronic dysphagia Staph hominis bacteremia, follow-up blood cultures revealed no growth Plan: The patient was seen and evaluated Labs and medications reviewed Continued on DuoNeb inhalations Continued on Pulmicort and Perforomist inhalations Continue prednisone taper Continued on Zosyn per ID service Currently on 6 L high flow nasal cannula Titrate down the FiO2 as tolerated Remains on aspiration precautions Currently on a dysphagia level 1 pured diet Social work working on guardianship and placement I have personally seen and examined the patient, performed the documentation and the assessment and plan as written. Number of minutes spent on the visit: 10 Dictation was produced using [employer] dictation software. Please excuse any grammatical, word or spelling errors.
--- NOTE | 2025-05-23 15:27 | P.PN ---
Subjective Progress Note Date: 05/23/25 Patient is a-64 year-old male with COPD, diabetes mellitus, history of alcohol use disorder, polysubstance abuse, loculated left-sided pleural effusion who initially presented on 05/09/2025 with altered mental status and acute hypoxic hypercapnic respiratory failure. He was initially seen in the ICU and placed on BiPAP and treated for pneumonia with Rocephin for 7 days and azithromycin. Blood culture revealed Staphylococcus hominis, and was subsequently started on vancomyci 05/20. Patient seen and examined. Dr. Shaw took over care. WBC 24, hemoglobin 14.1, platelet count 193, sodium 133, potassium 4.6, BUN 18, creatinine 0.60, glucose 108. Vital signs this morning is temperature 98, heart rate 84, respiration 18, blood pressure 96%, currently on 8 L of oxygen 05/21. Patient seen and examined. Stated he feels better compared to yesterday. Oxygen requirement improved to 6 L. Denying chest pain. Denies shortness of breath. Vital signs stable 05/22. Patient stated that he is feeling much better today. Currently on 5 L of oxygen. Patient is on IV diuretics in the form of Lasix 20 mg twice daily. Patient is continued on IV Zosyn. 05/23/2025 Patient was in follow-up in the cardiac unit. Patient continues on IV Lasix 40 mg daily. Also on a course of IV Zosyn and oral prednisone. White blood cell count is improved down to 13.63. Patient remains on oxygen via nasal cannula at 5 L with oxygen saturations of 91%. His blood pressure is on the marginal side at 96/70. REVIEW OF SYSTEMS: CONSTITUTIONAL: No fever, no malaise,. CARDIOVASCULAR: No chest pain, no palpitations, no syncope. PULMONARY: No shortness of breath, no cough, GASTROINTESTINAL: No diarrhea, no nausea, no vomiting, no abdominal pain. NEUROLOGICAL: No headaches, no weakness, PHYSICAL EXAMINATION: GENERAL: The patient is alert and oriented x3, ill looking HEENT: Pupils are round and equally reacting to light. EOMI. No scleral icterus. No conjunctival pallor. Normocephalic, atraumatic. No pharyngeal erythema. No thyromegaly. CARDIOVASCULAR: S1 and S2 present. No murmurs, rubs, or gallops. PULMONARY: Coarse breath sounds bilaterally, no wheezing or crackles. ABDOMEN: Soft, nontender, nondistended, normoactive bowel sounds. No palpable organomegaly. MUSCULOSKELETAL: No joint swelling or deformity. EXTREMITIES: No cyanosis, clubbing, or pedal edema. NEUROLOGICAL: Gross neurological examination did not reveal any focal deficits. SKIN: No rashes. Assessment and plan Acute hypoxic and hypercapnic respiratory failure secondary to acute exacerbation of COPD Acute diastolic congestive heart failure with tachyarrhythmia and supraventricular tachycardia requiring adenosine and Cardizem Acute leukocytosis Acute kidney injury History of loculated left-sided pleural effusion with previous pigtail catheter placement History of alcohol and Multi substance abuse Tobacco dependence syndrome Chronic dysphagia Staph hominis bacteremia Plan Continue telemetry monitoring Continue oxygen supplementation Continue breathing treatments Continue IV Zosyn On oral prednisone taper Continue Lasix 40 mg daily Continue Lopressor ID following Pulmonology following Continue ativan ciwa protocol Continue pureed dysphagia diet PT/OT consult and social work for discharge planning The impression and plan of care has been dictated by Nancy Zheng, Nurse Practitioner as directed. Dr. Nesha MD I have performed a history and physical examination and medical decision making of this patient, discussed the same with the dictator, and agree with the dictators assessment and plan as written, documented as a scribe. Based on total visit time, I have performed more than 50% of this visit. Objective - Vital Signs Vital signs: Vital Signs Temp 98.1 F 05/23/25 07:57 Pulse 88 05/23/25 07:59 Resp 18 05/23/25 07:59 BP 96/70 05/23/25 07:57 Pulse Ox 91 L 05/23/25 07:57 FiO2 3 05/17/25 00:00 Intake & Output 05/22/25 05/23/25 05/23/25 18:59 06:59 18:59 Intake Total 720 720 240 Output Total 775 750 Balance -55 -30 240 Weight 60.5 kg Intake: Oral 720 720 240 Output: Urine 775 750 Other: Voiding Method Urinal Urinal Urinal # Voids 1 1 # Bowel Movements 1 - Labs CBC & Chem 7: 05/23/25 06:42 05/23/25 06:42 Labs: Abnormal Lab Results - Last 24 Hours (Table) 05/22/25 05/22/25 05/22/25 Range/Units 11:24 16:18 20:13 WBC (4.50-10.00) 10*3/uL RBC (4.40-5.60) 10*6/uL Hgb (13.0-17.0) g/dL Hct (39.6-50.0) % Immature Gran # (0.00-0.04) 10*3/uL Neutrophils # (1.80-7.70) 10*3/uL Eosinophils # (0.04-0.35) 10*3/uL Sodium (137-145) mmol/L Chloride (98-107) mmol/L Carbon Dioxide (22-30) mmol/L BUN (9-20) mg/dL POC Glucose (mg/dL) 125 H 165 H 204 H (70-110) mg/dL ALT (4-49) U/L Total Protein (6.3-8.2) g/dL Albumin (3.5-5.0) g/dL 05/23/25 05/23/25 Range/Units 06:42 06:42 WBC 13.63 H (4.50-10.00) 10*3/uL RBC 4.00 L (4.40-5.60) 10*6/uL Hgb 12.4 L (13.0-17.0) g/dL Hct 38.1 L (39.6-50.0) % Immature Gran # 0.05 H (0.00-0.04) 10*3/uL Neutrophils # 11.06 H (1.80-7.70) 10*3/uL Eosinophils # 0.01 L (0.04-0.35) 10*3/uL Sodium 134 L (137-145) mmol/L Chloride 92 L (98-107) mmol/L Carbon Dioxide 38 H (22-30) mmol/L BUN 25 H (9-20) mg/dL POC Glucose (mg/dL) (70-110) mg/dL ALT 65 H (4-49) U/L Total Protein 4.8 L (6.3-8.2) g/dL Albumin 2.5 L (3.5-5.0) g/dL Microbiology - Last 24 Hours (Table) 05/20/25 13:54 Gram Stain - Final Sputum Sputum Culture - Final Assessment and Plan Time with Patient: Less than 30
[2025-05-23 16:41] LABS: Glucose,Whole Blood 355 mg/dL (70-110)
--- NOTE | 2025-05-23 17:14 | P.PN ---
Subjective Progress Note Date: 05/23/25 Principal diagnosis: Reason for follow-up is leukocytosis/aspiration pneumonia Patient is a-year-old male with COPD, diabetes mellitus, history of alcohol use disorder, polysubstance abuse, loculated left-sided pleural effusion who initially presented on 05/09/2025 with altered mental status and acute hypoxic hypercapnic respiratory failure. He was initially seen in the ICU and placed on BiPAP and treated for pneumonia with Rocephin for 7 days and azithromycin. Blood culture revealed Staphylococcus hominis, and that has prompted this consultation. Patient subsequently had worsening of respiratory status and was concern for possible aspiration pneumonitis On today's evaluation that is 05/23/2025, Patient is afebrile patient is currently on 6 L nasal oxygen and breathing slightly comfortably, the patient denies any chest pain or any worsening cough, the patient denies any nausea vomiting did not have any abdominal pain and no diarrhea. Patient white count is down to 13.63, creatinine 0.67 sputum culture have been negative Objective - Vital Signs Vital signs: Vital Signs Temp 98.4 F 05/23/25 14:19 Pulse 87 05/23/25 14:19 Resp 16 05/23/25 14:19 BP 105/69 05/23/25 14:19 Pulse Ox 92 L 05/23/25 14:19 FiO2 3 05/17/25 00:00 Intake & Output 05/22/25 05/23/25 05/23/25 18:59 06:59 18:59 Intake Total 720 720 240 Output Total 775 750 Balance -55 -30 240 Weight 60.5 kg Intake: Oral 720 720 240 Output: Urine 775 750 Other: Voiding Method Urinal Urinal Urinal # Voids 1 1 7 # Bowel Movements 1 - Exam GENERAL DESCRIPTION: An elderly male, sitting upright in bed with no distress RESPIRATORY SYSTEM: Mildly labored breathing, bilateral rhonchi HEART: S1 S2 regular rate and rhythm ABDOMEN: Soft , no tenderness EXTREMITIES: No edema feet - Labs CBC & Chem 7: 05/23/25 06:42 05/23/25 06:42 Labs: Abnormal Lab Results - Last 24 Hours (Table) 05/22/25 05/23/25 05/23/25 Range/Units 20:13 06:42 06:42 WBC 13.63 H (4.50-10.00) 10*3/uL RBC 4.00 L (4.40-5.60) 10*6/uL Hgb 12.4 L (13.0-17.0) g/dL Hct 38.1 L (39.6-50.0) % Immature Gran # 0.05 H (0.00-0.04) 10*3/uL Neutrophils # 11.06 H (1.80-7.70) 10*3/uL Eosinophils # 0.01 L (0.04-0.35) 10*3/uL Sodium 134 L (137-145) mmol/L Chloride 92 L (98-107) mmol/L Carbon Dioxide 38 H (22-30) mmol/L BUN 25 H (9-20) mg/dL POC Glucose (mg/dL) 204 H (70-110) mg/dL ALT 65 H (4-49) U/L Total Protein 4.8 L (6.3-8.2) g/dL Albumin 2.5 L (3.5-5.0) g/dL 05/23/25 Range/Units 16:40 WBC (4.50-10.00) 10*3/uL RBC (4.40-5.60) 10*6/uL Hgb (13.0-17.0) g/dL Hct (39.6-50.0) % Immature Gran # (0.00-0.04) 10*3/uL Neutrophils # (1.80-7.70) 10*3/uL Eosinophils # (0.04-0.35) 10*3/uL Sodium (137-145) mmol/L Chloride (98-107) mmol/L Carbon Dioxide (22-30) mmol/L BUN (9-20) mg/dL POC Glucose (mg/dL) 355 H (70-110) mg/dL ALT (4-49) U/L Total Protein (6.3-8.2) g/dL Albumin (3.5-5.0) g/dL Microbiology - Last 24 Hours (Table) 05/18/25 10:13 Blood Culture - Final Blood Assessment and Plan (1) Sepsis Current Visit: Yes Status: Acute Code(s): A41.9 - SEPSIS, UNSPECIFIED ORGANISM SNOMED Code(s): 68042027 (2) Pneumonia Current Visit: No Status: Acute Code(s): J18.9 - PNEUMONIA, UNSPECIFIED ORGANISM SNOMED Code(s): 532108668 (3) Bacteremia Current Visit: Yes Status: Acute Code(s): R78.81 - BACTEREMIA SNOMED Code(s): 9408159 Plan: 1. Patient initially treated for pneumonia with full course of Rocephin and azithromycin which resulted in improvement of symptoms and leukocytosis. 2. Blood culture positive for Staphylococcus hominis, which is believed to be likely contaminant. Repeat blood cultures currently pending. 3. Recurrent leukocytosis was thought to be due to prednisone use, as patient was afebrile, with no clear signs of infectious process and Vancomycin discontinued. 4. On 05/19/2025 overnight patient became increasingly dyspneic and placed on high flow nasal cannula with concern for possible aspiration pneumonitis 5. Blood sputum cultures so far negative and the patient white count is trending down with a sputum culture negative for any resistant pathogen antibiotic will be switched over to oral Augmentin Dictation was produced using [employer] dictation software. please excuse any grammatical, word or spelling errors. Time with Patient: Less than 30
[2025-05-23 20:26] LABS: Glucose,Whole Blood 111 mg/dL (70-110)
[2025-05-23] MEDS: AMOXIC-POT CLAV 875-125MG 1 EACH TAB PO SCH (20:47)
[2025-05-24 06:08] LABS: Glucose,Whole Blood 107 mg/dL (70-110)
[2025-05-24 08:21] LABS: Basophils # (A) 0.03 X 10*3/uL (0.00-0.10); Basophils % (A) 0.2 %; Eosinophils # (A) 0.01 X 10*3/uL (0.04-0.35); Eosinophils % (A) 0.1 %; HCT 42.1 % (39.6-50.0); HGB 12.7 g/dL (13.0-17.0); Immature Grans, Automated 0.40 %; Lymphocytes # (A) 0.98 X 10*3/uL (0.90-5.00); Lymphocytes % (A) 5.8 %; MCH 29.5 pg (27.0-32.0); MCHC 30.2 g/dL (32.0-37.0); MCV 97.9 FL (80.0-97.0); Monocytes # (A) 0.73 X 10*3/uL (0.20-1.00); Monocytes % (A) 4.4 %; NRBC Per 100 WBC 0 X 10*3/uL (0.00-0.01); Neutrophils # (A) 14.95 X 10*3/uL (1.80-7.70); Neutrophils % (A) 89.1 %; Platelet Count 246 X 10*3/uL (140-440); RBC 4.30 X 10*6/uL (4.40-5.60); RDW 13.4 % (11.5-14.5); WBC 16.77 X 10*3/uL (4.50-10.00)
[2025-05-24 08:31] LABS: Anion Gap 6.80 mmol/L (4.00-12.00); BUN/Creat Ratio 25.86 Ratio (12.00-20.00); Blood Urea Nitrogen 18.1 mg/dL (9.0-27.0); Calcium 8.4 mg/dL (8.7-10.3); Carbon Dioxide 38.2 mmol/L (21.6-31.8); Chloride 96 mmol/L (96-109); Glucose 90 mg/dL (70-110); Potassium 4.6 mmol/L (3.5-5.5); Sodium 141 mmol/L (135-145)
[2025-05-24] MEDS: predniSONE 10 MG TAB PO SCH (08:46)
[2025-05-24 11:12] LABS: Glucose,Whole Blood 127 mg/dL (70-110)
--- NOTE | 2025-05-24 13:43 | P.PN ---
Subjective Progress Note Date: 05/24/25 05/15/2025, the patient is being seen for a follow-up. Awake and alert and communicating. Occasional delusions. No agitation. Sitter at the bedside. Neurologic exam is nonfocal. The patient remains on Precedex running at 1.2 mcg/kg/min. I personally performed a bedside swallow evaluation on this pat ient. The patient was able to swallow properly. He was given applesauce and he was able to feed himself without any major difficulties. No cough during the swallow process. No significant shortness of breath. The patient remains on lactated Ringer at rate of 50 cc an hour. Currently is on 40 Suboxone by nasal cannula. Remains in atrial fibrillation. Cardizem is running at 10 mg an hour. Hemodynamically stable. No pressors. The white cell count at 10.7 with a hemoglobin 15.1 and the platelet count of 170. BUN is 29 with a creatinine of 0.66. Sodium is at 134 and potassium level is at 3.9. Remains on DuoNeb nebulized treatments [id number]. Remains on IV Solu-Medrol 40 mg every 12 hours. Remains on Cardizem drip and the patient will be started on metoprolol for rate control at a dose of 50 mg p.o. twice a day. The patient will be also restarted back on his routine oral medications. Will keep anticoagulation on hold for now. In terms of antibiotic coverage, the patient remains on a combination of Rocephin and vancomycin. On 05/16/2025, the patient remains on Precedex and this has been weaned down to 0.8 mcg/kg/min. This being used to control his agitation and the patient seems to be less paranoid. He is very reasonable in his discussions today. He is able to answer questions and follow commands without any focal neurological deficits. In addition, the patient is able to swallow. Overnight, he was on a BiPAP pressure of 12 or 6 cm of water with an FiO2 of 60% and currently he is on 40 Suboxone by nasal cannula. He remains in atrial fibrillation. Cardizem drip has been discontinued and the patient is currently on metoprolol 50 mg p.o. twice daily. Will not use anticoagulants based on his condition and comorbidities. No other complaints otherwise for now. His blood work shows a white cell count of 13, hemoglobin is 15.1 and a platelet count of 163. Sodium is at 133, potassium is at 4, bicarb is at 34, BUN 31 with a creatinine of 0.6. Afebrile. No significant agitation. Antibiotic coverage remains a combination of Rocephin and vancomycin. Seen today on 05/17/2025, patient remains in the ICU on Precedex he is on 3 L/min nasal cannula, Precedex is being weaned, overall the patient is appropriate, seen by psychiatry and placed on Prolixin as needed. Patient is also on ceftriaxone. Seems to be definitely less agitated, very comfortable not in any distress, apparently had significant agitation last night and yesterday. Patient is able to swallow pured diet he is now on nasal cannula and not in distress. Remains in atrial fibrillation, rate is controlled, continues to have leukocytosis with WBC count of 18.9 hemoglobin is 13.9 electrolytes are normal renal profile is normal, chest x-ray shows scattered reticular opacities, left lower lobe atelectasis in the retrocardiac area. The patient is seen today May 18, 2025 in follow-up on the regular medical floor. He was transferred out of the intensive care unit yesterday. He is currently resting in bed. Awake and alert in no acute distress. Maintaining O2 saturations in the 90s on 3 L/min per nasal cannula. He is afebrile. Hemodynamically stable. Glucose 113. Earlier blood culture revealed Staphylococcus hominis. The patient remains on vancomycin. He is continued on DuoNeb and elations, Pulmicort and Perforomist inhalations, prednisone taper. NicoDerm patch in place. Remains on the CIWA protocol. He is continued on his Suboxone. He was initiated on Prolixin by psychiatry. The patient is seen today May 19, 2025 in follow-up on the regular medical floor. He is currently sitting up in bed having lunch. Awake and alert in no acute distress. Still confused at times. manager database administration remains at the bedside. He is currently on 10 L high flow nasal cannula. He is afebrile. Hemodynamically stable. Chest x-ray continues to show a left lower lobe atelectasis. There is a large hiatal hernia. Small bilateral effusions. Cardiomegaly. Blood culture initially was positive for Staph hominis. White count 30.0. Hemoglobin 15.1. Platelets 206. Sodium 135. Potassium 3.4. Bicarb 38. BUN 20. Creatinine 0.55. Glucose 71. He remains on DuoNeb and elations, Pulmicort and Perforomist inhalations, prednisone taper. NicoDerm patch in place. Continued on Zosyn. The patient is seen today May 23, 2025 in follow-up on the regular medical floor. He is currently sitting up in bed. Awake and alert in no acute distress. Maintaining O2 saturation in the low 90s on 6 L high flow nasal cannula. He has been afebrile. Hemodynamically stable. Follow-up blood cultures revealed no growth. Sputum culture revealed no growth. White count 13.6. Hemoglobin 12.4. Platelets 239. Sodium 134. Potassium 3.7. Bicarb 38. BUN 25. Creatinine 0.67. He is continued on DuoNeb inhalations, Pulmicort and Perforomist inhalations, prednisone taper. Antibiotics in the form of Zosyn. Remains on oral diuretics. NicoDerm patch in place. The patient is seen today May 24, 2025 in follow-up on the regular medical floor. He is currently sitting up in a chair at the bedside. Awake and alert in no acute distress. Maintaining O2 saturations in the 90s on 6 L high flow nasal cannula. He has been afebrile. Hemodynamically stable. Initial blood culture was positive for Staphylococcus hominis. Follow-up blood culture revealed no growth. Sputum culture revealed no growth. White count 16.7. Hemoglobin 12.7. Platelets 246. Sodium 141. Potassium 4.6. Bicarb 38. BUN 18. Creatinine 0.7. Glucose 90. He remains on DuoNeb inhalations, Pulmicort and Perforomist inhalations, prednisone taper. Antibiotics in the form of Augmentin. Remains on oral diuretics. NicoDerm patch in place. Objective - Vital Signs Vital signs: Vital Signs Temp 98.4 F 05/24/25 08:00 Pulse 103 H 05/24/25 08:00 Resp 20 05/24/25 08:00 BP 135/80 05/24/25 08:00 Pulse Ox 90 L 05/24/25 08:00 FiO2 3 05/17/25 00:00 Intake & Output 05/23/25 05/24/25 05/24/25 18:59 06:59 18:59 Intake Total 240 Balance 240 Weight 62.5 kg Intake: Oral 240 Other: Voiding Method Urinal Urinal Urinal # Voids 7 4 - Exam GENERAL EXAM: Alert, 64-year-old male, sitting up in a chair, on 6 L nasal cannula, comfortable in no apparent distress. HEAD: Normocephalic. EYES: Normal reaction of pupils, equal size. NOSE: Clear with pink turbinates. THROAT: No erythema or exudates. NECK: No masses, no JVD. CHEST: No chest wall deformity. LUNGS: Equal air entry with bilateral scattered rhonchi. CVS: S1 and S2 normal with no audible murmur, irregular rhythm. ABDOMEN: No hepatosplenomegaly, normal bowel sounds, no guarding or rigidity. SPINE: No scoliosis or deformity SKIN: No rashes CENTRAL NERVOUS SYSTEM: No focal deficits, tone is normal in all 4 extremities. EXTREMITIES: There is no peripheral edema. No clubbing, no cyanosis. Peripheral pulses are intact. - Labs CBC & Chem 7: 05/24/25 03:42 05/24/25 03:42 Labs: Abnormal Lab Results - Last 24 Hours (Table) 05/23/25 05/23/25 05/24/25 Range/Units 16:40 20:25 03:42 WBC 16.77 H (4.50-10.00) X 10*3/uL RBC 4.30 L (4.40-5.60) X 10*6/uL Hgb 12.7 L (13.0-17.0) g/dL MCV 97.9 H (80.0-97.0) FL MCHC 30.2 L (32.0-37.0) g/dL Immature Gran # 0.07 H (0.00-0.04) X 10*3/uL Neutrophils # 14.95 H (1.80-7.70) X 10*3/uL Eosinophils # 0.01 L (0.04-0.35) X 10*3/uL Carbon Dioxide (21.6-31.8) mmol/L BUN/Creatinine Ratio (12.00-20.00) Ratio POC Glucose (mg/dL) 355 H 111 H (70-110) mg/dL Calcium (8.7-10.3) mg/dL 05/24/25 05/24/25 Range/Units 03:42 11:11 WBC (4.50-10.00) X 10*3/uL RBC (4.40-5.60) X 10*6/uL Hgb (13.0-17.0) g/dL MCV (80.0-97.0) FL MCHC (32.0-37.0) g/dL Immature Gran # (0.00-0.04) X 10*3/uL Neutrophils # (1.80-7.70) X 10*3/uL Eosinophils # (0.04-0.35) X 10*3/uL Carbon Dioxide 38.2 H (21.6-31.8) mmol/L BUN/Creatinine Ratio 25.86 H (12.00-20.00) Ratio POC Glucose (mg/dL) 127 H (70-110) mg/dL Calcium 8.4 L (8.7-10.3) mg/dL Microbiology - Last 24 Hours (Table) 05/18/25 10:13 Blood Culture - Final Blood Assessment and Plan Assessment: Acute hypoxic and hypercapnic respiratory failure secondary to acute exacerbation of COPD Acute diastolic congestive heart failure with tachyarrhythmia and supraventricular tachycardia requiring adenosine and Cardizem Acute leukocytosis Acute kidney injury History of loculated left-sided pleural effusion with previous pigtail catheter placement History of alcohol and Multi substance abuse Tobacco dependence syndrome Chronic dysphagia Staph hominis bacteremia, follow-up blood cultures revealed no growth Plan: The patient was seen and evaluated Labs and medications reviewed Continued on DuoNeb inhalations Discontinue Pulmicort and Perforomist inhalations Add Symbicort Continue prednisone taper Continued on Zosyn per ID service Currently on 6 L high flow nasal cannula Titrate down the FiO2 as tolerated Remains on aspiration precautions Currently on a dysphagia level 1 pured diet Social work still working on guardianship and placement I have personally seen and examined the patient, performed the documentation and the assessment and plan as written. Number of minutes spent on the visit: 10 Dictation was produced using [employer] dictation software. Please excuse any g rammatical, word or spelling errors.
[2025-05-24 17:23] LABS: Glucose,Whole Blood 162 mg/dL (70-110)
--- NOTE | 2025-05-24 17:29 | P.PN ---
Subjective Progress Note Date: 05/24/25 Reason for follow-up is leukocytosis/aspiration pneumonia Patient is a-year-old male with COPD, diabetes mellitus, history of alcohol use disorder, polysubstance abuse, loculated left-sided pleural effusion who initially presented on 05/09/2025 with altered mental status and acute hypoxic hypercapnic respiratory failure. He was initially seen in the ICU and placed on BiPAP and treated for pneumonia with Rocephin for 7 days and azithromycin. Blood culture revealed Staphylococcus hominis, and that has prompted this consultation. Patient subsequently had worsening of respiratory status and was concern for possible aspiration pneumonitis On today's evaluation that is 05/24/2025, Patient is afebrile patient is currently on 6 L nasal oxygen and breathing slightly comfortably, the patient denies any chest pain or any worsening cough, the patient denies any nausea vomiting did not have any abdominal pain and no diarrhea. Patient white count is elevated to 16.7, creatinine 0.7, sputum culture have been negative Objective - Vital Signs Vital signs: Vital Signs Temp 98.4 F 05/24/25 08:00 Pulse 103 H 05/24/25 08:00 Resp 20 05/24/25 08:00 BP 135/80 05/24/25 08:00 Pulse Ox 90 L 05/24/25 08:00 FiO2 3 05/17/25 00:00 Intake & Output 05/23/25 05/24/25 05/24/25 18:59 06:59 18:59 Intake Total 240 Balance 240 Weight 62.5 kg Intake: Oral 240 Other: Voiding Method Urinal Urinal # Voids 7 4 - Exam GENERAL DESCRIPTION: An elderly male, sitting upright in bed with no distress RESPIRATORY SYSTEM: Mildly labored breathing, bilateral rhonchi HEART: S1 S2 regular rate and rhythm ABDOMEN: Soft , no tenderness EXTREMITIES: No edema feet - Labs CBC & Chem 7: 05/25/25 06:07 05/24/25 03:42 Labs: Abnormal Lab Results - Last 24 Hours (Table) 05/23/25 05/23/25 05/24/25 Range/Units 16:40 20:25 03:42 WBC 16.77 H (4.50-10.00) X 10*3/uL RBC 4.30 L (4.40-5.60) X 10*6/uL Hgb 12.7 L (13.0-17.0) g/dL MCV 97.9 H (80.0-97.0) FL MCHC 30.2 L (32.0-37.0) g/dL Immature Gran # 0.07 H (0.00-0.04) X 10*3/uL Neutrophils # 14.95 H (1.80-7.70) X 10*3/uL Eosinophils # 0.01 L (0.04-0.35) X 10*3/uL Carbon Dioxide (21.6-31.8) mmol/L BUN/Creatinine Ratio (12.00-20.00) Ratio POC Glucose (mg/dL) 355 H 111 H (70-110) mg/dL Calcium (8.7-10.3) mg/dL 05/24/25 Range/Units 03:42 WBC (4.50-10.00) X 10*3/uL RBC (4.40-5.60) X 10*6/uL Hgb (13.0-17.0) g/dL MCV (80.0-97.0) FL MCHC (32.0-37.0) g/dL Immature Gran # (0.00-0.04) X 10*3/uL Neutrophils # (1.80-7.70) X 10*3/uL Eosinophils # (0.04-0.35) X 10*3/uL Carbon Dioxide 38.2 H (21.6-31.8) mmol/L BUN/Creatinine Ratio 25.86 H (12.00-20.00) Ratio POC Glucose (mg/dL) (70-110) mg/dL Calcium 8.4 L (8.7-10.3) mg/dL Microbiology - Last 24 Hours (Table) 05/18/25 10:13 Blood Culture - Final Blood Assessment and Plan (1) Sepsis Current Visit: Yes Status: Acute Code(s): A41.9 - SEPSIS, UNSPECIFIED ORGANISM SNOMED Code(s): 71884038 (2) Pneumonia Current Visit: No Status: Acute Code(s): J18.9 - PNEUMONIA, UNSPECIFIED ORGANISM SNOMED Code(s): 060449769 (3) Bacteremia Current Visit: Yes Status: Acute Code(s): R78.81 - BACTEREMIA SNOMED Code(s): 7179493 Plan: 1. Patient initially treated for pneumonia with full course of Rocephin and azithromycin which resulted in improvement of symptoms and leukocytosis. 2. Blood culture positive for Staphylococcus hominis, which is believed to be likely contaminant. Repeat blood cultures currently pending. 3. Recurrent leukocytosis was thought to be due to prednisone use, as patient was afebrile, with no clear signs of infectious process and Vancomycin discontinued. 4. On 05/19/2025 overnight patient became increasingly dyspneic and placed on high flow nasal cannula with concern for possible aspiration pneumonitis 5. Blood sputum cultures so far negative and the patient white count has mildly increased, no new symptoms or fever, with a sputum culture negative for any res istant pathogen antibiotic will be switched over to oral Augmentin. Duglas Manning MD Internal Medicine Resident, PGY2 Infectious disease service Patient was personally seen and examined with the resident physician agree with the documentation, patient is afebrile noticed to have slight worsening of the white count will monitor closely for now continue with Augmentin justino ruiz MD Dictation was produced using [employer] dictation software. please excuse any grammatical, word or spelling errors. Time with Patient: Less than 30
[2025-05-24] MEDS: SYMBICORT 160-4.5 MCG INHALER INHALATION SCH (21:07)
[2025-05-24 21:15] LABS: Glucose,Whole Blood 168 mg/dL (70-110)
[2025-05-24 22:39] LABS: Glucose,Whole Blood 152 mg/dL (70-110)
[2025-05-25 06:38] LABS: Glucose,Whole Blood 90 mg/dL (70-110)
[2025-05-25 10:10] LABS: Basophils # (A) 0.02 X 10*3/uL (0.00-0.10); Basophils % (A) 0.2 %; Eosinophils # (A) 0.01 X 10*3/uL (0.04-0.35); Eosinophils % (A) 0.1 %; HCT 42.5 % (39.6-50.0); HGB 13.1 g/dL (13.0-17.0); Immature Grans, Automated 0.50 %; Lymphocytes # (A) 1.86 X 10*3/uL (0.90-5.00); Lymphocytes % (A) 14.3 %; MCH 29.8 pg (27.0-32.0); MCHC 30.8 g/dL (32.0-37.0); MCV 96.8 FL (80.0-97.0); Monocytes # (A) 0.58 X 10*3/uL (0.20-1.00); Monocytes % (A) 4.4 %; NRBC Per 100 WBC 0 X 10*3/uL (0.00-0.01); Neutrophils # (A) 10.52 X 10*3/uL (1.80-7.70); Neutrophils % (A) 80.5 %; Platelet Count 219 X 10*3/uL (140-440); RBC 4.39 X 10*6/uL (4.40-5.60); RDW 13.3 % (11.5-14.5); WBC 13.05 X 10*3/uL (4.50-10.00)
[2025-05-25 11:46] LABS: Glucose,Whole Blood 109 mg/dL (70-110)
[2025-05-25 11:55] VITALS: BMI 21.7
--- NOTE | 2025-05-25 14:15 | P.PN ---
Subjective Progress Note Date: 05/25/25 05/15/2025, the patient is being seen for a follow-up. Awake and alert and communicating. Occasional delusions. No agitation. Sitter at the bedside. Neurologic exam is nonfocal. The patient remains on Precedex running at 1.2 mcg/kg/min. I personally performed a bedside swallow evaluation on this pat ient. The patient was able to swallow properly. He was given applesauce and he was able to feed himself without any major difficulties. No cough during the swallow process. No significant shortness of breath. The patient remains on lactated Ringer at rate of 50 cc an hour. Currently is on 40 Suboxone by nasal cannula. Remains in atrial fibrillation. Cardizem is running at 10 mg an hour. Hemodynamically stable. No pressors. The white cell count at 10.7 with a hemoglobin 15.1 and the platelet count of 170. BUN is 29 with a creatinine of 0.66. Sodium is at 134 and potassium level is at 3.9. Remains on DuoNeb nebulized treatments [id number]. Remains on IV Solu-Medrol 40 mg every 12 hours. Remains on Cardizem drip and the patient will be started on metoprolol for rate control at a dose of 50 mg p.o. twice a day. The patient will be also restarted back on his routine oral medications. Will keep anticoagulation on hold for now. In terms of antibiotic coverage, the patient remains on a combination of Rocephin and vancomycin. On 05/16/2025, the patient remains on Precedex and this has been weaned down to 0.8 mcg/kg/min. This being used to control his agitation and the patient seems to be less paranoid. He is very reasonable in his discussions today. He is able to answer questions and follow commands without any focal neurological deficits. In addition, the patient is able to swallow. Overnight, he was on a BiPAP pressure of 12 or 6 cm of water with an FiO2 of 60% and currently he is on 40 Suboxone by nasal cannula. He remains in atrial fibrillation. Cardizem drip has been discontinued and the patient is currently on metoprolol 50 mg p.o. twice daily. Will not use anticoagulants based on his condition and comorbidities. No other complaints otherwise for now. His blood work shows a white cell count of 13, hemoglobin is 15.1 and a platelet count of 163. Sodium is at 133, potassium is at 4, bicarb is at 34, BUN 31 with a creatinine of 0.6. Afebrile. No significant agitation. Antibiotic coverage remains a combination of Rocephin and vancomycin. Seen today on 05/17/2025, patient remains in the ICU on Precedex he is on 3 L/min nasal cannula, Precedex is being weaned, overall the patient is appropriate, seen by psychiatry and placed on Prolixin as needed. Patient is also on ceftriaxone. Seems to be definitely less agitated, very comfortable not in any distress, apparently had significant agitation last night and yesterday. Patient is able to swallow pured diet he is now on nasal cannula and not in distress. Remains in atrial fibrillation, rate is controlled, continues to have leukocytosis with WBC count of 18.9 hemoglobin is 13.9 electrolytes are normal renal profile is normal, chest x-ray shows scattered reticular opacities, left lower lobe atelectasis in the retrocardiac area. The patient is seen today May 18, 2025 in follow-up on the regular medical floor. He was transferred out of the intensive care unit yesterday. He is currently resting in bed. Awake and alert in no acute distress. Maintaining O2 saturations in the 90s on 3 L/min per nasal cannula. He is afebrile. Hemodynamically stable. Glucose 113. Earlier blood culture revealed Staphylococcus hominis. The patient remains on vancomycin. He is continued on DuoNeb and elations, Pulmicort and Perforomist inhalations, prednisone taper. NicoDerm patch in place. Remains on the CIWA protocol. He is continued on his Suboxone. He was initiated on Prolixin by psychiatry. The patient is seen today May 19, 2025 in follow-up on the regular medical floor. He is currently sitting up in bed having lunch. Awake and alert in no acute distress. Still confused at times. emergency vehicle operator remains at the bedside. He is currently on 10 L high flow nasal cannula. He is afebrile. Hemodynamically stable. Chest x-ray continues to show a left lower lobe atelectasis. There is a large hiatal hernia. Small bilateral effusions. Cardiomegaly. Blood culture initially was positive for Staph hominis. White count 30.0. Hemoglobin 15.1. Platelets 206. Sodium 135. Potassium 3.4. Bicarb 38. BUN 20. Creatinine 0.55. Glucose 71. He remains on DuoNeb and elations, Pulmicort and Perforomist inhalations, prednisone taper. NicoDerm patch in place. Continued on Zosyn. The patient is seen today May 23, 2025 in follow-up on the regular medical floor. He is currently sitting up in bed. Awake and alert in no acute distress. Maintaining O2 saturation in the low 90s on 6 L high flow nasal cannula. He has been afebrile. Hemodynamically stable. Follow-up blood cultures revealed no growth. Sputum culture revealed no growth. White count 13.6. Hemoglobin 12.4. Platelets 239. Sodium 134. Potassium 3.7. Bicarb 38. BUN 25. Creatinine 0.67. He is continued on DuoNeb inhalations, Pulmicort and Perforomist inhalations, prednisone taper. Antibiotics in the form of Zosyn. Remains on oral diuretics. NicoDerm patch in place. The patient is seen today May 24, 2025 in follow-up on the regular medical floor. He is currently sitting up in a chair at the bedside. Awake and alert in no acute distress. Maintaining O2 saturations in the 90s on 6 L high flow nasal cannula. He has been afebrile. Hemodynamically stable. Initial blood culture was positive for Staphylococcus hominis. Follow-up blood culture revealed no growth. Sputum culture revealed no growth. White count 16.7. Hemoglobin 12.7. Platelets 246. Sodium 141. Potassium 4.6. Bicarb 38. BUN 18. Creatinine 0.7. Glucose 90. He remains on DuoNeb inhalations, Pulmicort and Perforomist inhalations, prednisone taper. Antibiotics in the form of Augmentin. Remains on oral diuretics. NicoDerm patch in place. The patient is seen today May 25, 2025 in follow-up on the regular medical floor. He is currently resting in bed. Awake and alert in no acute distress. Maintaining O2 saturations in the high 80s to low 90s on 6 L high flow nasal cannula. He is afebrile. Hemodynamically stable. Follow-up blood culture revealed no growth. Sputum culture revealed no growth. White count 13.0. Hemoglobin 13.1. Platelets 219. Glucose 109. He remains on DuoNeb inhalations, Symbicort, prednisone taper. Antibiotics in the form of Augmentin. NicoDerm patch in place. Continued on Suboxone. Objective - Vital Signs Vital signs: Vital Signs Temp 97.9 F 05/25/25 07:41 Pulse 85 05/25/25 07:41 Resp 20 05/25/25 07:41 BP 120/78 05/25/25 07:41 Pulse Ox 89 L 05/25/25 07:41 FiO2 3 05/17/25 00:00 Intake & Output 05/24/25 05/25/25 05/25/25 18:59 06:59 18:59 Output Total 650 Balance -650 Weight 61 kg 61 kg Output: Urine 650 Other: Voiding Method Urinal # Voids 8 3 # Bowel Movements 0 - Exam GENERAL EXAM: Alert, calm, cooperative 64-year-old male, resting in bed, on 6 L nasal cannula, comfortable in no apparent distress. HEAD: Normocephalic. EYES: Normal reaction of pupils, equal size. NOSE: Clear with pink turbinates. THROAT: No erythema or exudates. NECK: No masses, no JVD. CHEST: No chest wall deformity. LUNGS: Equal air entry with bilateral scattered rhonchi. CVS: S1 and S2 normal with no audible murmur, irregular rhythm. ABDOMEN: No hepatosplenomegaly, normal bowel sounds, no guarding or rigidity. SPINE: No scoliosis or deformity SKIN: No rashes CENTRAL NERVOUS SYSTEM: No focal deficits, tone is normal in all 4 extremities. EXTREMITIES: There is no peripheral edema. No clubbing, no cyanosis. Peripheral pulses are intact. - Labs CBC & Chem 7: 05/25/25 06:07 05/24/25 03:42 Labs: Abnormal Lab Results - Last 24 Hours (Table) 05/24/25 05/24/25 05/24/25 Range/Units 17:21 21:13 22:38 WBC (4.50-10.00) X 10*3/uL RBC (4.40-5.60) X 10*6/uL MCHC (32.0-37.0) g/dL Immature Gran # (0.00-0.04) X 10*3/uL Neutrophils # (1.80-7.70) X 10*3/uL Eosinophils # (0.04-0.35) X 10*3/uL POC Glucose (mg/dL) 162 H 168 H 152 H (70-110) mg/dL 05/25/25 Range/Units 06:07 WBC 13.05 H (4.50-10.00) X 10*3/uL RBC 4.39 L (4.40-5.60) X 10*6/uL MCHC 30.8 L (32.0-37.0) g/dL Immature Gran # 0.06 H (0.00-0.04) X 10*3/uL Neutrophils # 10.52 H (1.80-7.70) X 10*3/uL Eosinophils # 0.01 L (0.04-0.35) X 10*3/uL POC Glucose (mg/dL) (70-110) mg/dL Assessment and Plan Assessment: Acute hypoxic and hypercapnic respiratory failure secondary to acute exacerbation of COPD Acute diastolic congestive heart failure with tachyarrhythmia and supraventricular tachycardia requiring adenosine and Cardizem Acute leukocytosis, improving Acute kidney injury, recovered History of loculated left-sided pleural effusion with previous pigtail catheter placement History of alcohol and Multi substance abuse Tobacco dependence syndrome Chronic dysphagia Staph hominis bacteremia, follow-up blood cultures revealed no growth Plan: The patient was seen and evaluated Labs and medications reviewed Continued on DuoNeb inhalations Continue Symbicort Continue prednisone taper Continued on Augmentin per ID service Currently on 6 L high flow nasal cannula Titrate down the FiO2 as tolerated Remains on aspiration precautions Currently on a dysphagia level 1 pured diet Pain is for ECF at discharge I have personally seen and examined the patient, performed the documentation and the assessment and plan as written. Number of minutes spent on the visit: 10 Dictation was produced using [employer] dictation software. Please excuse any grammatical, word or spelling errors.
--- NOTE | 2025-05-25 15:06 | P.PN ---
Subjective Progress Note Date: 05/25/25 Reason for follow-up is leukocytosis/aspiration pneumonia Patient is a-year-old male with COPD, diabetes mellitus, history of alcohol use disorder, polysubstance abuse, loculated left-sided pleural effusion who initially presented on 05/09/2025 with altered mental status and acute hypoxic hypercapnic respiratory failure. He was initially seen in the ICU and placed on BiPAP and treated for pneumonia with Rocephin for 7 days and azithromycin. Blood culture revealed Staphylococcus hominis, and that has prompted this consultation. Patient subsequently had worsening of respiratory status and was concern for possible aspiration pneumonitis On today's evaluation that is 05/25/2025, Patient is afebrile patient is currently on 6 L nasal oxygen and breathing comfortably, the patient denies any chest pain or any worsening cough, the patient denies any nausea vomiting did not have any abdominal pain and no diarrhea. Patient white count is 13.05, sputum and blood cultures are negative. Objective - Vital Signs Vital signs: Vital Signs Temp 97.9 F 05/25/25 07:41 Pulse 85 05/25/25 07:41 Resp 20 05/25/25 07:41 BP 120/78 05/25/25 07:41 Pulse Ox 89 L 05/25/25 07:41 FiO2 3 05/17/25 00:00 Intake & Output 05/24/25 05/25/25 05/25/25 18:59 06:59 18:59 Output Total 650 Balance -650 Weight 61 kg Output: Urine 650 Other: Voiding Method Urinal # Voids 8 3 # Bowel Movements 0 - Exam GENERAL DESCRIPTION: An elderly male, sitting upright in bed with no distress RESPIRATORY SYSTEM: Mildly labored breathing, bilateral rhonchi HEART: S1 S2 regular rate and rhythm ABDOMEN: Soft , no tenderness EXTREMITIES: No edema feet - Labs CBC & Chem 7: 05/25/25 06:07 05/24/25 03:42 Labs: Abnormal Lab Results - Last 24 Hours (Table) 05/24/25 05/24/25 05/24/25 Range/Units 11:11 17:21 21:13 POC Glucose (mg/dL) 127 H 162 H 168 H (70-110) mg/dL 05/24/25 Range/Units 22:38 POC Glucose (mg/dL) 152 H (70-110) mg/dL Assessment and Plan (1) Sepsis Current Visit: Yes Status: Acute Code(s): A41.9 - SEPSIS, UNSPECIFIED ORGANISM SNOMED Code(s): 10462966 (2) Pneumonia Current Visit: No Status: Acute Code(s): J18.9 - PNEUMONIA, UNSPECIFIED ORGANISM SNOMED Code(s): 386824263 (3) Bacteremia Current Visit: Yes Status: Acute Code(s): R78.81 - BACTEREMIA SNOMED Code(s): 5611361 Plan: 1. Patient initially treated for pneumonia with full course of Rocephin and azithromycin which resulted in improvement of symptoms and leukocytosis. 2. Blood culture positive for Staphylococcus hominis, which is believed to be likely contaminant. Repeat blood cultures currently pending. 3. Recurrent leukocytosis was thought to be due to prednisone use, as patient was afebrile, with no clear signs of infectious process and Vancomycin dis continued. 4. On 05/19/2025 overnight patient became increasingly dyspneic and placed on high flow nasal cannula with concern for possible aspiration pneumonitis 5. Blood sputum cultures are negative and the patient white count has stablized, no new symptoms or fever, with a sputum culture negative for any resistant pathogen antibiotic, continues on oral Augmentin, and may continue course for 5-7 days upon discharge. Duglas Manning MD Internal Medicine Resident, PGY2 Infectious disease service Patient was personally seen and examined by myself care has been discussed in detail with the resident physician taking care of the patient patient white count is trending down down to 13,000 today recommend a 5-day course of oral Augmentin on discharge justino ruiz MD Dictation was produced using [employer] dictation software. please excuse any grammatical, word or spelling errors. Time with Patient: Less than 30
[2025-05-25 16:17] LABS: Glucose,Whole Blood 170 mg/dL (70-110)
[2025-05-25 20:23] LABS: Glucose,Whole Blood 185 mg/dL (70-110)
--- NOTE | 2025-05-25 22:54 | PN ---
PROGRESS NOTE CHIEF COMPLAINT: Acute respiratory failure and congestive heart failure. HISTORY OF PRESENT ILLNESS: This gentleman is stable. Has been no interval change. He awaits guardianship to be established. PHYSICAL EXAMINATION: GENERAL: He is awake and alert. CHEST: Quite clear. CARDIAC: Normal. IMPRESSION: 1. Acute respiratory failure. 2. Chronic obstructive pulmonary disease. 3. Acute congestive heart failure. 4. History of alcoholism. 5. History of narcotic abuse. PLAN: Continue with maintenance until guardianship is granted. MMODL / IJN: [id number] /
--- NOTE | 2025-05-25 23:32 | PN ---
PROGRESS NOTE CHIEF COMPLAINT: Acute respiratory failure and heart failure. HISTORY OF PRESENT ILLNESS: This patient is unchanged. He is awake and alert. He has been stable. Guardianship is pending. PHYSICAL EXAMINATION: CHEST: Sounds quite clear to auscultation. CARDIAC: Normal. IMPRESSION: 1. Exacerbation of chronic obstructive pulmonary disease. 2. Congestive heart failure. 3. History of opioid abuse. 4. Cellulitis of the lower extremities. PLAN: Await guardianship approval. MMMINGOL / MARGEN: [id number] /
[2025-05-26 06:16] LABS: Glucose,Whole Blood 120 mg/dL (70-110)
[2025-05-26 12:03] LABS: Glucose,Whole Blood 124 mg/dL (70-110)
[2025-05-26] MEDS: NICOTINE 21MG/24HR PATCH TRANSDERM SCH (13:55)
--- NOTE | 2025-05-26 14:10 | P.PN ---
Subjective Progress Note Date: 05/26/25 05/15/2025, the patient is being seen for a follow-up. Awake and alert and communicating. Occasional delusions. No agitation. Sitter at the bedside. Neurologic exam is nonfocal. The patient remains on Precedex running at 1.2 mcg/kg/min. I personally performed a bedside swallow evaluation on this pat ient. The patient was able to swallow properly. He was given applesauce and he was able to feed himself without any major difficulties. No cough during the swallow process. No significant shortness of breath. The patient remains on lactated Ringer at rate of 50 cc an hour. Currently is on 40 Suboxone by nasal cannula. Remains in atrial fibrillation. Cardizem is running at 10 mg an hour. Hemodynamically stable. No pressors. The white cell count at 10.7 with a hemoglobin 15.1 and the platelet count of 170. BUN is 29 with a creatinine of 0.66. Sodium is at 134 and potassium level is at 3.9. Remains on DuoNeb nebulized treatments [id number]. Remains on IV Solu-Medrol 40 mg every 12 hours. Remains on Cardizem drip and the patient will be started on metoprolol for rate control at a dose of 50 mg p.o. twice a day. The patient will be also restarted back on his routine oral medications. Will keep anticoagulation on hold for now. In terms of antibiotic coverage, the patient remains on a combination of Rocephin and vancomycin. On 05/16/2025, the patient remains on Precedex and this has been weaned down to 0.8 mcg/kg/min. This being used to control his agitation and the patient seems to be less paranoid. He is very reasonable in his discussions today. He is able to answer questions and follow commands without any focal neurological deficits. In addition, the patient is able to swallow. Overnight, he was on a BiPAP pressure of 12 or 6 cm of water with an FiO2 of 60% and currently he is on 40 Suboxone by nasal cannula. He remains in atrial fibrillation. Cardizem drip has been discontinued and the patient is currently on metoprolol 50 mg p.o. twice daily. Will not use anticoagulants based on his condition and comorbidities. No other complaints otherwise for now. His blood work shows a white cell count of 13, hemoglobin is 15.1 and a platelet count of 163. Sodium is at 133, potassium is at 4, bicarb is at 34, BUN 31 with a creatinine of 0.6. Afebrile. No significant agitation. Antibiotic coverage remains a combination of Rocephin and vancomycin. Seen today on 05/17/2025, patient remains in the ICU on Precedex he is on 3 L/min nasal cannula, Precedex is being weaned, overall the patient is appropriate, seen by psychiatry and placed on Prolixin as needed. Patient is also on ceftriaxone. Seems to be definitely less agitated, very comfortable not in any distress, apparently had significant agitation last night and yesterday. Patient is able to swallow pured diet he is now on nasal cannula and not in distress. Remains in atrial fibrillation, rate is controlled, continues to have leukocytosis with WBC count of 18.9 hemoglobin is 13.9 electrolytes are normal renal profile is normal, chest x-ray shows scattered reticular opacities, left lower lobe atelectasis in the retrocardiac area. The patient is seen today May 18, 2025 in follow-up on the regular medical floor. He was transferred out of the intensive care unit yesterday. He is currently resting in bed. Awake and alert in no acute distress. Maintaining O2 saturations in the 90s on 3 L/min per nasal cannula. He is afebrile. Hemodynamically stable. Glucose 113. Earlier blood culture revealed Staphylococcus hominis. The patient remains on vancomycin. He is continued on DuoNeb and elations, Pulmicort and Perforomist inhalations, prednisone taper. NicoDerm patch in place. Remains on the CIWA protocol. He is continued on his Suboxone. He was initiated on Prolixin by psychiatry. The patient is seen today May 19, 2025 in follow-up on the regular medical floor. He is currently sitting up in bed having lunch. Awake and alert in no acute distress. Still confused at times. digital marketer remains at the bedside. He is currently on 10 L high flow nasal cannula. He is afebrile. Hemodynamically stable. Chest x-ray continues to show a left lower lobe atelectasis. There is a large hiatal hernia. Small bilateral effusions. Cardiomegaly. Blood culture initially was positive for Staph hominis. White count 30.0. Hemoglobin 15.1. Platelets 206. Sodium 135. Potassium 3.4. Bicarb 38. BUN 20. Creatinine 0.55. Glucose 71. He remains on DuoNeb and elations, Pulmicort and Perforomist inhalations, prednisone taper. NicoDerm patch in place. Continued on Zosyn. The patient is seen today May 23, 2025 in follow-up on the regular medical floor. He is currently sitting up in bed. Awake and alert in no acute distress. Maintaining O2 saturation in the low 90s on 6 L high flow nasal cannula. He has been afebrile. Hemodynamically stable. Follow-up blood cultures revealed no growth. Sputum culture revealed no growth. White count 13.6. Hemoglobin 12.4. Platelets 239. Sodium 134. Potassium 3.7. Bicarb 38. BUN 25. Creatinine 0.67. He is continued on DuoNeb inhalations, Pulmicort and Perforomist inhalations, prednisone taper. Antibiotics in the form of Zosyn. Remains on oral diuretics. NicoDerm patch in place. The patient is seen today May 24, 2025 in follow-up on the regular medical floor. He is currently sitting up in a chair at the bedside. Awake and alert in no acute distress. Maintaining O2 saturations in the 90s on 6 L high flow nasal cannula. He has been afebrile. Hemodynamically stable. Initial blood culture was positive for Staphylococcus hominis. Follow-up blood culture revealed no growth. Sputum culture revealed no growth. White count 16.7. Hemoglobin 12.7. Platelets 246. Sodium 141. Potassium 4.6. Bicarb 38. BUN 18. Creatinine 0.7. Glucose 90. He remains on DuoNeb inhalations, Pulmicort and Perforomist inhalations, prednisone taper. Antibiotics in the form of Augmentin. Remains on oral diuretics. NicoDerm patch in place. The patient is seen today May 25, 2025 in follow-up on the regular medical floor. He is currently resting in bed. Awake and alert in no acute distress. Maintaining O2 saturations in the high 80s to low 90s on 6 L high flow nasal cannula. He is afebrile. Hemodynamically stable. Follow-up blood culture revealed no growth. Sputum culture revealed no growth. White count 13.0. Hemoglobin 13.1. Platelets 219. Glucose 109. He remains on DuoNeb inhalations, Symbicort, prednisone taper. Antibiotics in the form of Augmentin. NicoDerm patch in place. Continued on Suboxone. The patient is seen today May 26, 2025 in follow-up on the regular medical floor. He is currently sitting up in a chair at the bedside. Awake and alert in no acute distress. He has been calm and cooperative. He remains on DuoNeb and elations, Symbicort, prednisone taper. NicoDerm patch in place. Remains on his Suboxone. Follow-up blood cultures revealed no growth. Sputum culture revealed no growth. Glucose 124. Objective - Vital Signs Vital signs: Vital Signs Temp 98.2 F 05/26/25 08:00 Pulse 65 05/26/25 08:00 Resp 21 05/26/25 08:00 BP 110/77 05/26/25 08:00 Pulse Ox 91 L 05/26/25 08:00 FiO2 3 05/17/25 00:00 Intake & Output 05/25/25 05/26/25 05/26/25 18:59 06:59 18:59 Intake Total 320 Output Total 2250 600 800 Balance -2250 -600 -480 Weight 61 kg 61.5 kg Intake: Oral 320 Output: Urine 2250 600 800 Other: Voiding Method Urinal # Voids 1 # Bowel Movements 0 1 - Exam GENERAL EXAM: Alert, calm, cooperative 64-year-old male, sitting up in a chair, on 7 L nasal cannula, in no apparent distress. HEAD: Normocephalic. EYES: Normal reaction of pupils, equal size. NOSE: Clear with pink turbinates. THROAT: No erythema or exudates. NECK: No masses, no JVD. CHEST: No chest wall deformity. LUNGS: Equal air entry with bilateral scattered rhonchi. CVS: S1 and S2 normal with no audible murmur, irregular rhythm. ABDOMEN: No hepatosplenomegaly, normal bowel sounds, no guarding or rigidity. SPINE: No scoliosis or deformity SKIN: No rashes CENTRAL NERVOUS SYSTEM: No focal deficits, tone is normal in all 4 extremities. EXTREMITIES: There is no peripheral edema. No clubbing, no cyanosis. Peripheral pulses are intact. - Labs CBC & Chem 7: 05/25/25 06:07 05/24/25 03:42 Labs: Abnormal Lab Results - Last 24 Hours (Table) 05/25/25 05/25/25 05/26/25 Range/Units 16:14 20:21 06:15 POC Glucose (mg/dL) 170 H 185 H 120 H (70-110) mg/dL 05/26/25 Range/Units 12:02 POC Glucose (mg/dL) 124 H (70-110) mg/dL Assessment and Plan Assessment: Acute hypoxic and hypercapnic respiratory failure secondary to acute exacerbation of COPD Acute diastolic congestive heart failure with tachyarrhythmia and supraventricular tachycardia requiring adenosine and Cardizem Acute leukocytosis, improving Acute kidney injury, recovered History of loculated left-sided pleural effusion with previous pigtail catheter placement History of alcohol and Multi substance abuse Tobacco dependence syndrome Chronic dysphagia Staph hominis bacteremia, follow-up blood cultures revealed no growth Plan: The patient was seen and evaluated Labs and medications reviewed Continued on DuoNeb inhalations Continue Symbicort Continue prednisone taper Completed Augmentin Currently on 7 L high flow nasal cannula Titrate down the FiO2 as tolerated Remains on aspiration precautions Currently on a dysphagia level 1 pured diet Pain is for ECF at discharge, possibly [facility] I have personally seen and examined the patient, performed the documentation and the assessment and plan as written. Number of minutes spent on the visit: 10 Dictation was produced using [employer]! dictation software. Please excuse any grammatical, word or spelling errors.
[2025-05-26] MEDS ORDERED: ZINC OXIDE PASTE (Z-GUARD) 1 APPLIC TOPICAL PRN (14:37)
[2025-05-26 16:56] LABS: Glucose,Whole Blood 175 mg/dL (70-110)
--- NOTE | 2025-05-26 17:04 | P.PN ---
Subjective Progress Note Date: 05/26/25 Reason for follow-up is leukocytosis/aspiration pneumonia Patient is a-year-old male with COPD, diabetes mellitus, history of alcohol use disorder, polysubstance abuse, loculated left-sided pleural effusion who initially presented on 05/09/2025 with altered mental status and acute hypoxic hypercapnic respiratory failure. He was initially seen in the ICU and placed on BiPAP and treated for pneumonia with Rocephin for 7 days and azithromycin. Blood culture revealed Staphylococcus hominis, and that has prompted this consultation. Patient subsequently had worsening of respiratory status and was concern for possible aspiration pneumonitis On today's evaluation that is 05/26/2025, Patient is afebrile patient is currently on 7 L nasal oxygen and breathing comfortably, the patient denies any chest pain or any worsening cough, the patient denies any nausea vomiting did not have any abdominal pain and no diarrhea. No new labs today, sputum and blood cultures are negative. Objective - Vital Signs Vital signs: Vital Signs Temp 98.2 F 05/26/25 08:00 Pulse 65 05/26/25 08:00 Resp 21 05/26/25 08:00 BP 110/77 05/26/25 08:00 Pulse Ox 91 L 05/26/25 08:00 FiO2 3 05/17/25 00:00 Intake & Output 05/25/25 05/26/25 05/26/25 18:59 06:59 18:59 Intake Total 120 Output Total 2250 600 Balance -2250 -600 120 Weight 61 kg 61.5 kg Intake: Oral 120 Output: Urine 2250 600 Other: Voiding Method Urinal # Voids 1 # Bowel Movements 0 - Exam GENERAL DESCRIPTION: An elderly male, sitting upright in bed with no distress RESPIRATORY SYSTEM: Mildly labored breathing, bilateral rhonchi HEART: S1 S2 regular rate and rhythm ABDOMEN: Soft , no tenderness EXTREMITIES: No edema feet - Labs CBC & Chem 7: 05/25/25 06:07 05/24/25 03:42 Labs: Abnormal Lab Results - Last 24 Hours (Table) 05/25/25 05/25/25 05/25/25 Range/Units 06:07 16:14 20:21 WBC 13.05 H (4.50-10.00) X 10*3/uL RBC 4.39 L (4.40-5.60) X 10*6/uL MCHC 30.8 L (32.0-37.0) g/dL Immature Gran # 0.06 H (0.00-0.04) X 10*3/uL Neutrophils # 10.52 H (1.80-7.70) X 10*3/uL Eosinophils # 0.01 L (0.04-0.35) X 10*3/uL POC Glucose (mg/dL) 170 H 185 H (70-110) mg/dL 05/26/25 Range/Units 06:15 WBC (4.50-10.00) X 10*3/uL RBC (4.40-5.60) X 10*6/uL MCHC (32.0-37.0) g/dL Immature Gran # (0.00-0.04) X 10*3/uL Neutrophils # (1.80-7.70) X 10*3/uL Eosinophils # (0.04-0.35) X 10*3/uL POC Glucose (mg/dL) 120 H (70-110) mg/dL Assessment and Plan (1) Sepsis Current Visit: Yes Status: Acute Code(s): A41.9 - SEPSIS, UNSPECIFIED ORGANISM SNOMED Code(s): 82656857 (2) Pneumonia Current Visit: No Status: Acute Code(s): J18.9 - PNEUMONIA, UNSPECIFIED ORGANISM SNOMED Code(s): 880743827 (3) Bacteremia Current Visit: Yes Status: Acute Code(s): R78.81 - BACTEREMIA SNOMED Code(s): 9580905 Plan: 1. Patient initially treated for pneumonia with full course of Rocephin and azithromycin which resulted in improvement of symptoms and leukocytosis. 2. Blood culture positive for Staphylococcus hominis, which is believed to be likely contaminant. Repeat blood cultures currently pending. 3. Recurrent leukocytosis was thought to be due to prednisone use, as patient was afebrile, with no clear signs of infectious process and Vancomycin discontinued. 4. On 05/19/2025 overnight patient became increasingly dyspneic and placed on high flow nasal cannula with concern for possible aspiration pneumonitis 5. Blood sputum cultures are negative and the patient white count has stablized, no new symptoms or fever, with a sputum culture negative for any resistant pathogen antibiotic, oral Augmentin discontinued. Duglas Manning MD Internal Medicine Resident, PGY2 Infectious disease service Patient was personally seen and examined care discussed in detail with the resident physician documentation reviewed and agree, patient seem to be breathing comfortably Augmentin has been discontinued by pulmonary, will monitor the patient closely off antibiotic therapy justino ruiz MD Dictation was produced using [employer] dictation software. please excuse any grammatical, word or spelling errors. Time with Patient: Less than 30
[2025-05-26 20:46] LABS: Glucose,Whole Blood 106 mg/dL (70-110)
--- NOTE | 2025-05-27 01:15 | PN ---
PROGRESS NOTE CHIEF COMPLAINT: Acute respiratory failure and congestive heart failure. HISTORY OF PRESENT ILLNESS: This gentleman is stable and there has been no interval change. PHYSICAL EXAMINATION: CHEST: Quite clear. CARDIAC: Normal. IMPRESSION AND PLAN: He is calm and settled down after he has been detoxed, off all the medications and alcohol. We are waiting for guardianship. AMAIRANI / ELAINE: [id number] /
[2025-05-27 06:13] LABS: Glucose,Whole Blood 86 mg/dL (70-110)
--- NOTE | 2025-05-27 11:42 | P.PN ---
Subjective Progress Note Date: 05/27/25 05/15/2025, the patient is being seen for a follow-up. Awake and alert and communicating. Occasional delusions. No agitation. Sitter at the bedside. Neurologic exam is nonfocal. The patient remains on Precedex running at 1.2 mcg/kg/min. I personally performed a bedside swallow evaluation on this pat ient. The patient was able to swallow properly. He was given applesauce and he was able to feed himself without any major difficulties. No cough during the swallow process. No significant shortness of breath. The patient remains on lactated Ringer at rate of 50 cc an hour. Currently is on 40 Suboxone by nasal cannula. Remains in atrial fibrillation. Cardizem is running at 10 mg an hour. Hemodynamically stable. No pressors. The white cell count at 10.7 with a hemoglobin 15.1 and the platelet count of 170. BUN is 29 with a creatinine of 0.66. Sodium is at 134 and potassium level is at 3.9. Remains on DuoNeb nebulized treatments [id number]. Remains on IV Solu-Medrol 40 mg every 12 hours. Remains on Cardizem drip and the patient will be started on metoprolol for rate control at a dose of 50 mg p.o. twice a day. The patient will be also restarted back on his routine oral medications. Will keep anticoagulation on hold for now. In terms of antibiotic coverage, the patient remains on a combination of Rocephin and vancomycin. On 05/16/2025, the patient remains on Precedex and this has been weaned down to 0.8 mcg/kg/min. This being used to control his agitation and the patient seems to be less paranoid. He is very reasonable in his discussions today. He is able to answer questions and follow commands without any focal neurological deficits. In addition, the patient is able to swallow. Overnight, he was on a BiPAP pressure of 12 or 6 cm of water with an FiO2 of 60% and currently he is on 40 Suboxone by nasal cannula. He remains in atrial fibrillation. Cardizem drip has been discontinued and the patient is currently on metoprolol 50 mg p.o. twice daily. Will not use anticoagulants based on his condition and comorbidities. No other complaints otherwise for now. His blood work shows a white cell count of 13, hemoglobin is 15.1 and a platelet count of 163. Sodium is at 133, potassium is at 4, bicarb is at 34, BUN 31 with a creatinine of 0.6. Afebrile. No significant agitation. Antibiotic coverage remains a combination of Rocephin and vancomycin. Seen today on 05/17/2025, patient remains in the ICU on Precedex he is on 3 L/min nasal cannula, Precedex is being weaned, overall the patient is appropriate, seen by psychiatry and placed on Prolixin as needed. Patient is also on ceftriaxone. Seems to be definitely less agitated, very comfortable not in any distress, apparently had significant agitation last night and yesterday. Patient is able to swallow pured diet he is now on nasal cannula and not in distress. Remains in atrial fibrillation, rate is controlled, continues to have leukocytosis with WBC count of 18.9 hemoglobin is 13.9 electrolytes are normal renal profile is normal, chest x-ray shows scattered reticular opacities, left lower lobe atelectasis in the retrocardiac area. The patient is seen today May 18, 2025 in follow-up on the regular medical floor. He was transferred out of the intensive care unit yesterday. He is currently resting in bed. Awake and alert in no acute distress. Maintaining O2 saturations in the 90s on 3 L/min per nasal cannula. He is afebrile. Hemodynamically stable. Glucose 113. Earlier blood culture revealed Staphylococcus hominis. The patient remains on vancomycin. He is continued on DuoNeb and elations, Pulmicort and Perforomist inhalations, prednisone taper. NicoDerm patch in place. Remains on the CIWA protocol. He is continued on his Suboxone. He was initiated on Prolixin by psychiatry. The patient is seen today May 19, 2025 in follow-up on the regular medical floor. He is currently sitting up in bed having lunch. Awake and alert in no acute distress. Still confused at times. assistant plant controller remains at the bedside. He is currently on 10 L high flow nasal cannula. He is afebrile. Hemodynamically stable. Chest x-ray continues to show a left lower lobe atelectasis. There is a large hiatal hernia. Small bilateral effusions. Cardiomegaly. Blood culture initially was positive for Staph hominis. White count 30.0. Hemoglobin 15.1. Platelets 206. Sodium 135. Potassium 3.4. Bicarb 38. BUN 20. Creatinine 0.55. Glucose 71. He remains on DuoNeb and elations, Pulmicort and Perforomist inhalations, prednisone taper. NicoDerm patch in place. Continued on Zosyn. The patient is seen today May 23, 2025 in follow-up on the regular medical floor. He is currently sitting up in bed. Awake and alert in no acute distress. Maintaining O2 saturation in the low 90s on 6 L high flow nasal cannula. He has been afebrile. Hemodynamically stable. Follow-up blood cultures revealed no growth. Sputum culture revealed no growth. White count 13.6. Hemoglobin 12.4. Platelets 239. Sodium 134. Potassium 3.7. Bicarb 38. BUN 25. Creatinine 0.67. He is continued on DuoNeb inhalations, Pulmicort and Perforomist inhalations, prednisone taper. Antibiotics in the form of Zosyn. Remains on oral diuretics. NicoDerm patch in place. The patient is seen today May 24, 2025 in follow-up on the regular medical floor. He is currently sitting up in a chair at the bedside. Awake and alert in no acute distress. Maintaining O2 saturations in the 90s on 6 L high flow nasal cannula. He has been afebrile. Hemodynamically stable. Initial blood culture was positive for Staphylococcus hominis. Follow-up blood culture revealed no growth. Sputum culture revealed no growth. White count 16.7. Hemoglobin 12.7. Platelets 246. Sodium 141. Potassium 4.6. Bicarb 38. BUN 18. Creatinine 0.7. Glucose 90. He remains on DuoNeb inhalations, Pulmicort and Perforomist inhalations, prednisone taper. Antibiotics in the form of Augmentin. Remains on oral diuretics. NicoDerm patch in place. The patient is seen today May 25, 2025 in follow-up on the regular medical floor. He is currently resting in bed. Awake and alert in no acute distress. Maintaining O2 saturations in the high 80s to low 90s on 6 L high flow nasal cannula. He is afebrile. Hemodynamically stable. Follow-up blood culture revealed no growth. Sputum culture revealed no growth. White count 13.0. Hemoglobin 13.1. Platelets 219. Glucose 109. He remains on DuoNeb inhalations, Symbicort, prednisone taper. Antibiotics in the form of Augmentin. NicoDerm patch in place. Continued on Suboxone. The patient is seen today May 26, 2025 in follow-up on the regular medical floor. He is currently sitting up in a chair at the bedside. Awake and alert in no acute distress. He has been calm and cooperative. He remains on DuoNeb and elations, Symbicort, prednisone taper. NicoDerm patch in place. Remains on his Suboxone. Follow-up blood cultures revealed no growth. Sputum culture revealed no growth. Glucose 124. The patient is seen today May 27, 2025 in follow-up on the regular medical floor. He is awake and alert in no acute distress. Sitting up in a chair. Denies any worsening shortness of breath, cough or congestion. He is still requiring oxygen at 7 L/min per nasal cannula. He remains on DuoNeb inhalations, Symbicort, prednisone taper. NicoDerm patch in place. Blood culture revealed no growth. Sputum culture revealed no growth. Glucose 86. Objective - Vital Signs Vital signs: Vital Signs Temp 98.7 F 05/27/25 07:30 Pulse 103 H 05/27/25 07:30 Resp 19 05/27/25 07:30 BP 118/84 05/27/25 07:30 Pulse Ox 91 L 05/27/25 07:30 FiO2 3 05/17/25 00:00 Intake & Output 05/26/25 05/27/25 05/27/25 18:59 06:59 18:59 Intake Total 520 Output Total 1700 1500 Balance -1180 -1500 Intake: Oral 520 Output: Urine 1700 1500 Other: Voiding Method Urinal Bedside Commode Urinal Urinal # Voids 1 # Bowel Movements 1 - Exam GENERAL EXAM: Alert, cooperative 64-year-old male, up in a chair, on 7 L nasal cannula, in no apparent distress. HEAD: Normocephalic. EYES: Normal reaction of pupils, equal size. NOSE: Clear with pink turbinates. THROAT: No erythema or exudates. NECK: No masses, no JVD. CHEST: No chest wall deformity. LUNGS: Equal air entry with bilateral scattered rhonchi. CVS: S1 and S2 normal with no audible murmur, irregular rhythm. ABDOMEN: No hepatosplenomegaly, normal bowel sounds, no guarding or rigidity. SPINE: No scoliosis or deformity SKIN: No rashes CENTRAL NERVOUS SYSTEM: No focal deficits, tone is normal in all 4 extremities. EXTREMITIES: There is no peripheral edema. No clubbing, no cyanosis. Peripheral pulses are intact. - Labs CBC & Chem 7: 05/25/25 06:07 05/24/25 03:42 Labs: Abnormal Lab Results - Last 24 Hours (Table) 05/26/25 05/26/25 Range/Units 12:02 16:54 POC Glucose (mg/dL) 124 H 175 H (70-110) mg/dL Assessment and Plan Assessment: Acute hypoxic and hypercapnic respiratory failure secondary to acute exacerbation of COPD Acute diastolic congestive heart failure with tachyarrhythmia and supraventricular tachycardia requiring adenosine and Cardizem Acute leukocytosis, improving Acute kidney injury, recovered History of loculated left-sided pleural effusion with previous pigtail catheter placement History of alcohol and Multi substance abuse Tobacco dependence syndrome Chronic dysphagia Staph hominis bacteremia, follow-up blood cultures revealed no growth Plan: The patient was seen and evaluated Labs and medications reviewed Continued on DuoNeb inhalations Continue Symbicort Continue prednisone taper Currently on 7 L high flow nasal cannula Titrate down the FiO2 as tolerated Remains on aspiration precautions Currently on a dysphagia level 1 pured diet Case management still working on placement Pain is for ECF at discharge, possibly [facility] I have personally seen and examined the patient, performed the documentation and the assessment and plan as written. Number of minutes spent on the visit: 10 Dictation was produced using [employer] dictation software. Please excuse any grammatical, word or spelling errors.
[2025-05-27 12:14] LABS: Glucose,Whole Blood 187 mg/dL (70-110)
--- NOTE | 2025-05-27 15:17 | P.PN ---
Subjective Progress Note Date: 05/27/25 Principal diagnosis: Reason for follow-up is leukocytosis/aspiration pneumonia Patient is a-year-old male with COPD, diabetes mellitus, history of alcohol use disorder, polysubstance abuse, loculated left-sided pleural effusion who initially presented on 05/09/2025 with altered mental status and acute hypoxic hypercapnic respiratory failure. He was initially seen in the ICU and placed on BiPAP and treated for pneumonia with Rocephin for 7 days and azithromycin. Blood culture revealed Staphylococcus hominis, and that has prompted this consultation. Patient subsequently had worsening of respiratory status and was concern for possible aspiration pneumonitis On today's evaluation that is 05/27/2025,the patient remains to be afebrile, patient is on 5 L nasal cannula supplemental oxygen and denies any shortness of breath no chest pain or cough.Patient denies having any nausea or vomiting, no abdominal pain and no diarrhea has been reported patient mention feeling better wants to go home. No new lab has been obtained today Objective - Vital Signs Vital signs: Vital Signs Temp 98.5 F 05/27/25 14:00 Pulse 88 05/27/25 14:00 Resp 19 05/27/25 14:00 BP 106/77 05/27/25 14:00 Pulse Ox 94 L 05/27/25 14:00 FiO2 3 05/17/25 00:00 Intake & Output 05/26/25 05/27/25 05/27/25 18:59 06:59 18:59 Intake Total 520 Output Total 1700 1500 Balance -1180 -1500 Intake: Oral 520 Output: Urine 1700 1500 Other: Voiding Method Urinal Bedside Commode Urinal Urinal # Voids 1 # Bowel Movements 1 - Exam GENERAL DESCRIPTION: An elderly male, sitting upright in bed with no distress RESPIRATORY SYSTEM: Mildly labored breathing, bilateral rhonchi HEART: S1 S2 regular rate and rhythm ABDOMEN: Soft , no tenderness EXTREMITIES: No edema feet - Labs CBC & Chem 7: 05/25/25 06:07 05/24/25 03:42 Labs: Abnormal Lab Results - Last 24 Hours (Table) 05/26/25 05/27/25 Range/Units 16:54 12:12 POC Glucose (mg/dL) 175 H 187 H (70-110) mg/dL Assessment and Plan (1) Sepsis Current Visit: Yes Status: Acute Code(s): A41.9 - SEPSIS, UNSPECIFIED ORGANISM SNOMED Code(s): 16668541 (2) Pneumonia Current Visit: No Status: Acute Code(s): J18.9 - PNEUMONIA, UNSPECIFIED ORGANISM SNOMED Code(s): 180090774 (3) Bacteremia Current Visit: Yes Status: Acute Code(s): R78.81 - BACTEREMIA SNOMED Code(s): 9500202 Plan: 1. Patient initially treated for pneumonia with full course of Rocephin and azithromycin which resulted in improvement of symptoms and leukocytosis. 2. Blood culture positive for Staphylococcus hominis, which is believed to be likely contaminant. Repeat blood cultures currently pending. 3. Recurrent leukocytosis was thought to be due to prednisone use, as patient was afebrile, with no clear signs of infectious process and Vancomycin discontinued. 4. On 05/19/2025 overnight patient became increasingly dyspneic and placed on high flow nasal cannula with concern for possible aspiration pneumonitis 5. Blood sputum cultures are negative and the patient white count has stablized, 6the patient remains to be afebrile the patient requiring less supplemental oxygen seem to be doing well off antibiotic therapy will monitor closely repeat his CBC with a.m. lab Dictation was produced using [employer] dictation software. please excuse any grammatical, word or spelling errors. Time with Patient: Less than 30
[2025-05-27 16:54] LABS: Glucose,Whole Blood 141 mg/dL (70-110)
[2025-05-27 20:53] LABS: Glucose,Whole Blood 139 mg/dL (70-110)
--- NOTE | 2025-05-27 20:54 | PN ---
PROGRESS NOTE DATE OF SERVICE: 05/27/2025 CHIEF COMPLAINT: Acute respiratory failure and heart failure. HISTORY OF PRESENT ILLNESS: This gentleman is stable and awaits guardianship before he will be discharged. PHYSICAL EXAMINATION: CARDIAC: Normal. CHEST: Clear. ABDOMEN: Soft, nontender. IMPRESSION: 1. Chronic obstructive pulmonary disease. 2. Opioid abuse. 3. Cellulitis of the lower extremities. 4. Congestive heart failure. PLAN: Await guardianship. MMODL / IJN: [id number] /
[2025-05-28 06:15] LABS: Glucose,Whole Blood 94 mg/dL (70-110)
[2025-05-28 08:52] LABS: Basophils # (A) 0.02 X 10*3/uL (0.00-0.10); Basophils % (A) 0.2 %; Eosinophils # (A) 0.02 X 10*3/uL (0.04-0.35); Eosinophils % (A) 0.2 %; HCT 43.0 % (39.6-50.0); HGB 13.5 g/dL (13.0-17.0); Immature Grans, Automated 0.20 %; Lymphocytes # (A) 1.58 X 10*3/uL (0.90-5.00); Lymphocytes % (A) 15.6 %; MCH 30.0 pg (27.0-32.0); MCHC 31.4 g/dL (32.0-37.0); MCV 95.6 FL (80.0-97.0); Monocytes # (A) 0.62 X 10*3/uL (0.20-1.00); Monocytes % (A) 6.1 %; NRBC Per 100 WBC 0 X 10*3/uL (0.00-0.01); Neutrophils # (A) 7.89 X 10*3/uL (1.80-7.70); Neutrophils % (A) 77.7 %; Platelet Count 248 X 10*3/uL (140-440); RBC 4.50 X 10*6/uL (4.40-5.60); RDW 13.5 % (11.5-14.5); WBC 10.15 X 10*3/uL (4.50-10.00)
[2025-05-28 09:29] LABS: ALT 40 U/L (10-49); AST 18 U/L (14-35); Albumin 3.3 g/dL (3.8-4.9); Albumin/Globulin Ratio 1.27 Ratio (1.60-3.17); Alkaline Phosphatase 78 U/L (41-126); Anion Gap 9.70 mmol/L (4.00-12.00); BUN/Creat Ratio 27.75 Ratio (12.00-20.00); Blood Urea Nitrogen 22.2 mg/dL (9.0-27.0); Calcium 8.3 mg/dL (8.7-10.3); Carbon Dioxide 36.3 mmol/L (21.6-31.8); Chloride 93 mmol/L (96-109); Globulin 2.6 g/dL (1.6-3.3); Glucose 85 mg/dL (70-110); Potassium 4.0 mmol/L (3.5-5.5); Sodium 139 mmol/L (135-145); Total Protein 5.9 g/dL (6.2-8.2)
[2025-05-28 11:51] LABS: Glucose,Whole Blood 165 mg/dL (70-110)
--- NOTE | 2025-05-28 13:43 | P.PN ---
Subjective Progress Note Date: 05/28/25 05/15/2025, the patient is being seen for a follow-up. Awake and alert and communicating. Occasional delusions. No agitation. Sitter at the bedside. Neurologic exam is nonfocal. The patient remains on Precedex running at 1.2 mcg/kg/min. I personally performed a bedside swallow evaluation on this pat ient. The patient was able to swallow properly. He was given applesauce and he was able to feed himself without any major difficulties. No cough during the swallow process. No significant shortness of breath. The patient remains on lactated Ringer at rate of 50 cc an hour. Currently is on 40 Suboxone by nasal cannula. Remains in atrial fibrillation. Cardizem is running at 10 mg an hour. Hemodynamically stable. No pressors. The white cell count at 10.7 with a hemoglobin 15.1 and the platelet count of 170. BUN is 29 with a creatinine of 0.66. Sodium is at 134 and potassium level is at 3.9. Remains on DuoNeb nebulized treatments [id number]. Remains on IV Solu-Medrol 40 mg every 12 hours. Remains on Cardizem drip and the patient will be started on metoprolol for rate control at a dose of 50 mg p.o. twice a day. The patient will be also restarted back on his routine oral medications. Will keep anticoagulation on hold for now. In terms of antibiotic coverage, the patient remains on a combination of Rocephin and vancomycin. On 05/16/2025, the patient remains on Precedex and this has been weaned down to 0.8 mcg/kg/min. This being used to control his agitation and the patient seems to be less paranoid. He is very reasonable in his discussions today. He is able to answer questions and follow commands without any focal neurological deficits. In addition, the patient is able to swallow. Overnight, he was on a BiPAP pressure of 12 or 6 cm of water with an FiO2 of 60% and currently he is on 40 Suboxone by nasal cannula. He remains in atrial fibrillation. Cardizem drip has been discontinued and the patient is currently on metoprolol 50 mg p.o. twice daily. Will not use anticoagulants based on his condition and comorbidities. No other complaints otherwise for now. His blood work shows a white cell count of 13, hemoglobin is 15.1 and a platelet count of 163. Sodium is at 133, potassium is at 4, bicarb is at 34, BUN 31 with a creatinine of 0.6. Afebrile. No significant agitation. Antibiotic coverage remains a combination of Rocephin and vancomycin. Seen today on 05/17/2025, patient remains in the ICU on Precedex he is on 3 L/min nasal cannula, Precedex is being weaned, overall the patient is appropriate, seen by psychiatry and placed on Prolixin as needed. Patient is also on ceftriaxone. Seems to be definitely less agitated, very comfortable not in any distress, apparently had significant agitation last night and yesterday. Patient is able to swallow pured diet he is now on nasal cannula and not in distress. Remains in atrial fibrillation, rate is controlled, continues to have leukocytosis with WBC count of 18.9 hemoglobin is 13.9 electrolytes are normal renal profile is normal, chest x-ray shows scattered reticular opacities, left lower lobe atelectasis in the retrocardiac area. The patient is seen today May 18, 2025 in follow-up on the regular medical floor. He was transferred out of the intensive care unit yesterday. He is currently resting in bed. Awake and alert in no acute distress. Maintaining O2 saturations in the 90s on 3 L/min per nasal cannula. He is afebrile. Hemodynamically stable. Glucose 113. Earlier blood culture revealed Staphylococcus hominis. The patient remains on vancomycin. He is continued on DuoNeb and elations, Pulmicort and Perforomist inhalations, prednisone taper. NicoDerm patch in place. Remains on the CIWA protocol. He is continued on his Suboxone. He was initiated on Prolixin by psychiatry. The patient is seen today May 19, 2025 in follow-up on the regular medical floor. He is currently sitting up in bed having lunch. Awake and alert in no acute distress. Still confused at times. pet house sitter remains at the bedside. He is currently on 10 L high flow nasal cannula. He is afebrile. Hemodynamically stable. Chest x-ray continues to show a left lower lobe atelectasis. There is a large hiatal hernia. Small bilateral effusions. Cardiomegaly. Blood culture initially was positive for Staph hominis. White count 30.0. Hemoglobin 15.1. Platelets 206. Sodium 135. Potassium 3.4. Bicarb 38. BUN 20. Creatinine 0.55. Glucose 71. He remains on DuoNeb and elations, Pulmicort and Perforomist inhalations, prednisone taper. NicoDerm patch in place. Continued on Zosyn. The patient is seen today May 23, 2025 in follow-up on the regular medical floor. He is currently sitting up in bed. Awake and alert in no acute distress. Maintaining O2 saturation in the low 90s on 6 L high flow nasal cannula. He has been afebrile. Hemodynamically stable. Follow-up blood cultures revealed no growth. Sputum culture revealed no growth. White count 13.6. Hemoglobin 12.4. Platelets 239. Sodium 134. Potassium 3.7. Bicarb 38. BUN 25. Creatinine 0.67. He is continued on DuoNeb inhalations, Pulmicort and Perforomist inhalations, prednisone taper. Antibiotics in the form of Zosyn. Remains on oral diuretics. NicoDerm patch in place. The patient is seen today May 24, 2025 in follow-up on the regular medical floor. He is currently sitting up in a chair at the bedside. Awake and alert in no acute distress. Maintaining O2 saturations in the 90s on 6 L high flow nasal cannula. He has been afebrile. Hemodynamically stable. Initial blood culture was positive for Staphylococcus hominis. Follow-up blood culture revealed no growth. Sputum culture revealed no growth. White count 16.7. Hemoglobin 12.7. Platelets 246. Sodium 141. Potassium 4.6. Bicarb 38. BUN 18. Creatinine 0.7. Glucose 90. He remains on DuoNeb inhalations, Pulmicort and Perforomist inhalations, prednisone taper. Antibiotics in the form of Augmentin. Remains on oral diuretics. NicoDerm patch in place. The patient is seen today May 25, 2025 in follow-up on the regular medical floor. He is currently resting in bed. Awake and alert in no acute distress. Maintaining O2 saturations in the high 80s to low 90s on 6 L high flow nasal cannula. He is afebrile. Hemodynamically stable. Follow-up blood culture revealed no growth. Sputum culture revealed no growth. White count 13.0. Hemoglobin 13.1. Platelets 219. Glucose 109. He remains on DuoNeb inhalations, Symbicort, prednisone taper. Antibiotics in the form of Augmentin. NicoDerm patch in place. Continued on Suboxone. The patient is seen today May 26, 2025 in follow-up on the regular medical floor. He is currently sitting up in a chair at the bedside. Awake and alert in no acute distress. He has been calm and cooperative. He remains on DuoNeb and elations, Symbicort, prednisone taper. NicoDerm patch in place. Remains on his Suboxone. Follow-up blood cultures revealed no growth. Sputum culture revealed no growth. Glucose 124. The patient is seen today May 27, 2025 in follow-up on the regular medical floor. He is awake and alert in no acute distress. Sitting up in a chair. Denies any worsening shortness of breath, cough or congestion. He is still requiring oxygen at 7 L/min per nasal cannula. He remains on DuoNeb inhalations, Symbicort, prednisone taper. NicoDerm patch in place. Blood culture revealed no growth. Sputum culture revealed no growth. Glucose 86. The patient is seen today May 28, 2025 in follow-up on the regular medical floor. He is sitting up in bed. Awake and alert in no acute distress. Denies any worsening shortness of breath, cough or congestion. He is maintaining good O2 saturations in the 90s on 5 L/min per nasal cannula. Has been afebrile. Hemodynamically stable. White count 10.1. Hemoglobin 13.5. Platelets 248. Sodium 139. Potassium 4.0. Bicarb 36. BUN 22. Creatinine 0.8. Glucose 85. Procalcitonin negative at 0.09. He remains on DuoNeb inhalations, Symbicort, prednisone taper. NicoDerm patch in place. Remains on oral diuretics. Objective - Vital Signs Vital signs: Vital Signs Temp 97.9 F 05/28/25 07:12 Pulse 80 05/28/25 07:12 Resp 18 05/28/25 07:12 BP 117/86 05/28/25 07:12 Pulse Ox 92 L 05/28/25 13:11 FiO2 3 05/17/25 00:00 Intake & Output 05/27/25 05/28/25 05/28/25 18:59 06:59 18:59 Output Total 800 Balance -800 Weight 61 kg Output: Urine 800 Other: Voiding Method Urinal Toilet Urinal # Voids 3 # Bowel Movements 1 - Exam GENERAL EXAM: Alert, cooperative 64-year-old male, resting in bed, on 5 L nasal cannula, in no apparent distress. HEAD: Normocephalic. EYES: Normal reaction of pupils, equal size. NOSE: Clear with pink turbinates. THROAT: No erythema or exudates. NECK: No masses, no JVD. CHEST: No chest wall deformity. LUNGS: Equal air entry with bilateral scattered rhonchi. CVS: S1 and S2 normal with no audible murmur, irregular rhythm. ABDOMEN: No hepatosplenomegaly, normal bowel sounds, no guarding or rigidity. SPINE: Evidence of kyphosis. SKIN: No rashes CENTRAL NERVOUS SYSTEM: No focal deficits, tone is normal in all 4 extremities. EXTREMITIES: There is no peripheral edema. No clubbing, no cyanosis. Peripheral pulses are intact. - Labs CBC & Chem 7: 05/28/25 03:14 05/28/25 03:14 Labs: Abnormal Lab Results - Last 24 Hours (Table) 05/27/25 05/27/25 05/28/25 Range/Units 16:53 20:51 03:14 WBC 10.15 H (4.50-10.00) X 10*3/uL MCHC 31.4 L (32.0-37.0) g/dL Neutrophils # 7.89 H (1.80-7.70) X 10*3/uL Eosinophils # 0.02 L (0.04-0.35) X 10*3/uL Chloride (96-109) mmol/L Carbon Dioxide (21.6-31.8) mmol/L BUN/Creatinine Ratio (12.00-20.00) Ratio POC Glucose (mg/dL) 141 H 139 H (70-110) mg/dL Calcium (8.7-10.3) mg/dL C-Reactive Protein (0.00-0.80) mg/dL Total Protein (6.2-8.2) g/dL Albumin (3.8-4.9) g/dL Albumin/Globulin Ratio (1.60-3.17) Ratio 05/28/25 05/28/25 Range/Units 03:14 11:49 WBC (4.50-10.00) X 10*3/uL MCHC (32.0-37.0) g/dL Neutrophils # (1.80-7.70) X 10*3/uL Eosinophils # (0.04-0.35) X 10*3/uL Chloride 93 L (96-109) mmol/L Carbon Dioxide 36.3 H (21.6-31.8) mmol/L BUN/Creatinine Ratio 27.75 H (12.00-20.00) Ratio POC Glucose (mg/dL) 165 H (70-110) mg/dL Calcium 8.3 L (8.7-10.3) mg/dL C-Reactive Protein 1.80 H (0.00-0.80) mg/dL Total Protein 5.9 L (6.2-8.2) g/dL Albumin 3.3 L (3.8-4.9) g/dL Albumin/Globulin Ratio 1.27 L (1.60-3.17) Ratio Assessment and Plan Assessment: Acute hypoxic and hypercapnic respiratory failure secondary to acute exacerbation of COPD Acute diastolic congestive heart failure with tachyarrhythmia and supraventricular tachycardia requiring adenosine and Cardizem Acute leukocytosis, improving Acute kidney injury, recovered History of loculated left-sided pleural effusion with previous pigtail catheter placement History of alcohol and Multi substance abuse Tobacco dependence syndrome Chronic dysphagia Staph hominis bacteremia, follow-up blood cultures revealed no growth Plan: The patient was seen and evaluated Labs and medications reviewed Continued on DuoNeb inhalations Continue Symbicort Continue prednisone taper Currently on 5 L high flow nasal cannula Titrate down the FiO2 as tolerated Case management still working on placement Pain [facility] I have personally seen and examined the patient, performed the documentation and the assessment and plan as written. Number of minutes spent on the visit: 10 Dictation was produced using Time[employer]ation software. Please excuse any grammatical, word or spelling errors.
--- NOTE | 2025-05-28 15:54 | P.PN ---
Subjective Progress Note Date: 05/28/25 Principal diagnosis: Reason for follow-up is leukocytosis/aspiration pneumonia Patient is a-year-old male with COPD, diabetes mellitus, history of alcohol use disorder, polysubstance abuse, loculated left-sided pleural effusion who initially presented on 05/09/2025 with altered mental status and acute hypoxic hypercapnic respiratory failure. He was initially seen in the ICU and placed on BiPAP and treated for pneumonia with Rocephin for 7 days and azithromycin. Blood culture revealed Staphylococcus hominis, and that has prompted this consultation. Patient subsequently had worsening of respiratory status and was concern for possible aspiration pneumonitis On today's evaluation that is 05/28/2025, the patient continues to be afebrile, the patient is on 5 with nasal oxygen and breathing comfortably, the Pt denies having any chest pain or cough, the patient denies having any abdominal pain no vomiting or any diarrhea, patient sitting on going home. Patient white count is 10.15, creatinine 0.8 Pro-Kory 0.09 Objective - Vital Signs Vital signs: Vital Signs Temp 97.9 F 05/28/25 07:12 Pulse 80 05/28/25 07:12 Resp 18 05/28/25 07:12 BP 117/86 05/28/25 07:12 Pulse Ox 92 L 05/28/25 13:11 FiO2 3 05/17/25 00:00 Intake & Output 05/27/25 05/28/25 05/28/25 18:59 06:59 18:59 Output Total 800 Balance -800 Weight 61 kg Output: Urine 800 Other: Voiding Method Urinal Toilet Urinal # Voids 3 # Bowel Movements 1 - Exam GENERAL DESCRIPTION: An elderly male, sitting upright in bed with no distress RESPIRATORY SYSTEM: Mildly labored breathing, bilateral rhonchi HEART: S1 S2 regular rate and rhythm ABDOMEN: Soft , no tenderness EXTREMITIES: No edema feet - Labs CBC & Chem 7: 05/28/25 03:14 05/28/25 03:14 Labs: Abnormal Lab Results - Last 24 Hours (Table) 05/27/25 05/27/25 05/28/25 Range/Units 16:53 20:51 03:14 WBC 10.15 H (4.50-10.00) X 10*3/uL MCHC 31.4 L (32.0-37.0) g/dL Neutrophils # 7.89 H (1.80-7.70) X 10*3/uL Eosinophils # 0.02 L (0.04-0.35) X 10*3/uL Chloride (96-109) mmol/L Carbon Dioxide (21.6-31.8) mmol/L BUN/Creatinine Ratio (12.00-20.00) Ratio POC Glucose (mg/dL) 141 H 139 H (70-110) mg/dL Calcium (8.7-10.3) mg/dL C-Reactive Protein (0.00-0.80) mg/dL Total Protein (6.2-8.2) g/dL Albumin (3.8-4.9) g/dL Albumin/Globulin Ratio (1.60-3.17) Ratio 05/28/25 05/28/25 Range/Units 03:14 11:49 WBC (4.50-10.00) X 10*3/uL MCHC (32.0-37.0) g/dL Neutrophils # (1.80-7.70) X 10*3/uL Eosinophils # (0.04-0.35) X 10*3/uL Chloride 93 L (96-109) mmol/L Carbon Dioxide 36.3 H (21.6-31.8) mmol/L BUN/Creatinine Ratio 27.75 H (12.00-20.00) Ratio POC Glucose (mg/dL) 165 H (70-110) mg/dL Calcium 8.3 L (8.7-10.3) mg/dL C-Reactive Protein 1.80 H (0.00-0.80) mg/dL Total Protein 5.9 L (6.2-8.2) g/dL Albumin 3.3 L (3.8-4.9) g/dL Albumin/Globulin Ratio 1.27 L (1.60-3.17) Ratio Assessment and Plan (1) Sepsis Current Visit: Yes Status: Acute Code(s): A41.9 - SEPSIS, UNSPECIFIED ORGANISM SNOMED Code(s): 05840359 (2) Pneumonia Current Visit: No Status: Acute Code(s): J18.9 - PNEUMONIA, UNSPECIFIED ORGANISM SNOMED Code(s): 014643142 (3) Bacteremia Current Visit: Yes Status: Acute Code(s): R78.81 - BACTEREMIA SNOMED Code(s): 4682289 Plan: 1. Patient initially treated for pneumonia with full course of Rocephin and azithromycin which resulted in improvement of symptoms and leukocytosis. 2. Blood culture positive for Staphylococcus hominis, which is believed to be likely contaminant. Repeat blood cultures currently pending. 3. Recurrent leukocytosis was thought to be due to prednisone use, as patient was afebrile, with no clear signs of infectious process and Vancomycin discontinued. 4. On 05/19/2025 overnight patient became increasingly dyspneic and placed on high flow nasal cannula with concern for possible aspiration pneumonitis 5. Blood sputum cultures are negative and the patient white count has normalized 6patient has completed antibiotic therapy currently being monitored closely off antibiotics Dictation was produced using [employer] dictation software. please excuse any grammatical, word or spelling errors. Time with Patient: Less than 30
[2025-05-28 16:39] LABS: Glucose,Whole Blood 125 mg/dL (70-110)
[2025-05-28 21:18] LABS: Glucose,Whole Blood 144 mg/dL (70-110)
--- NOTE | 2025-05-29 01:32 | PN ---
PROGRESS NOTE DATE OF SERVICE: 05/28/2025 CHIEF COMPLAINT: Acute respiratory and cardiac failure. HISTORY OF PRESENT ILLNESS: This gentleman is doing well and there has been no change. PHYSICAL EXAMINATION: CHEST: Clear. CARDIAC: Normal. ABDOMEN: Soft, nontender. EXTREMITIES: Improved. IMPRESSION: 1. Acute respiratory failure. 2. Acute congestive heart failure. 3. Chronic obstructive pulmonary disease. 4. Alcoholism. 5. Opioid abuse. 6. Cellulitis of the legs. PLAN: Await wait for his guardianship and discharge. MMODL / IJN: [id number] /
[2025-05-29 06:08] LABS: Glucose,Whole Blood 80 mg/dL (70-110)
--- NOTE | 2025-05-29 10:29 | P.PN ---
Subjective Progress Note Date: 05/29/25 05/15/2025, the patient is being seen for a follow-up. Awake and alert and communicating. Occasional delusions. No agitation. Sitter at the bedside. Neurologic exam is nonfocal. The patient remains on Precedex running at 1.2 mcg/kg/min. I personally performed a bedside swallow evaluation on this pat ient. The patient was able to swallow properly. He was given applesauce and he was able to feed himself without any major difficulties. No cough during the swallow process. No significant shortness of breath. The patient remains on lactated Ringer at rate of 50 cc an hour. Currently is on 40 Suboxone by nasal cannula. Remains in atrial fibrillation. Cardizem is running at 10 mg an hour. Hemodynamically stable. No pressors. The white cell count at 10.7 with a hemoglobin 15.1 and the platelet count of 170. BUN is 29 with a creatinine of 0.66. Sodium is at 134 and potassium level is at 3.9. Remains on DuoNeb nebulized treatments [id number]. Remains on IV Solu-Medrol 40 mg every 12 hours. Remains on Cardizem drip and the patient will be started on metoprolol for rate control at a dose of 50 mg p.o. twice a day. The patient will be also restarted back on his routine oral medications. Will keep anticoagulation on hold for now. In terms of antibiotic coverage, the patient remains on a combination of Rocephin and vancomycin. On 05/16/2025, the patient remains on Precedex and this has been weaned down to 0.8 mcg/kg/min. This being used to control his agitation and the patient seems to be less paranoid. He is very reasonable in his discussions today. He is able to answer questions and follow commands without any focal neurological deficits. In addition, the patient is able to swallow. Overnight, he was on a BiPAP pressure of 12 or 6 cm of water with an FiO2 of 60% and currently he is on 40 Suboxone by nasal cannula. He remains in atrial fibrillation. Cardizem drip has been discontinued and the patient is currently on metoprolol 50 mg p.o. twice daily. Will not use anticoagulants based on his condition and comorbidities. No other complaints otherwise for now. His blood work shows a white cell count of 13, hemoglobin is 15.1 and a platelet count of 163. Sodium is at 133, potassium is at 4, bicarb is at 34, BUN 31 with a creatinine of 0.6. Afebrile. No significant agitation. Antibiotic coverage remains a combination of Rocephin and vancomycin. Seen today on 05/17/2025, patient remains in the ICU on Precedex he is on 3 L/min nasal cannula, Precedex is being weaned, overall the patient is appropriate, seen by psychiatry and placed on Prolixin as needed. Patient is also on ceftriaxone. Seems to be definitely less agitated, very comfortable not in any distress, apparently had significant agitation last night and yesterday. Patient is able to swallow pured diet he is now on nasal cannula and not in distress. Remains in atrial fibrillation, rate is controlled, continues to have leukocytosis with WBC count of 18.9 hemoglobin is 13.9 electrolytes are normal renal profile is normal, chest x-ray shows scattered reticular opacities, left lower lobe atelectasis in the retrocardiac area. The patient is seen today May 18, 2025 in follow-up on the regular medical floor. He was transferred out of the intensive care unit yesterday. He is currently resting in bed. Awake and alert in no acute distress. Maintaining O2 saturations in the 90s on 3 L/min per nasal cannula. He is afebrile. Hemodynamically stable. Glucose 113. Earlier blood culture revealed Staphylococcus hominis. The patient remains on vancomycin. He is continued on DuoNeb and elations, Pulmicort and Perforomist inhalations, prednisone taper. NicoDerm patch in place. Remains on the CIWA protocol. He is continued on his Suboxone. He was initiated on Prolixin by psychiatry. The patient is seen today May 19, 2025 in follow-up on the regular medical floor. He is currently sitting up in bed having lunch. Awake and alert in no acute distress. Still confused at times. custodial engineer remains at the bedside. He is currently on 10 L high flow nasal cannula. He is afebrile. Hemodynamically stable. Chest x-ray continues to show a left lower lobe atelectasis. There is a large hiatal hernia. Small bilateral effusions. Cardiomegaly. Blood culture initially was positive for Staph hominis. White count 30.0. Hemoglobin 15.1. Platelets 206. Sodium 135. Potassium 3.4. Bicarb 38. BUN 20. Creatinine 0.55. Glucose 71. He remains on DuoNeb and elations, Pulmicort and Perforomist inhalations, prednisone taper. NicoDerm patch in place. Continued on Zosyn. The patient is seen today May 23, 2025 in follow-up on the regular medical floor. He is currently sitting up in bed. Awake and alert in no acute distress. Maintaining O2 saturation in the low 90s on 6 L high flow nasal cannula. He has been afebrile. Hemodynamically stable. Follow-up blood cultures revealed no growth. Sputum culture revealed no growth. White count 13.6. Hemoglobin 12.4. Platelets 239. Sodium 134. Potassium 3.7. Bicarb 38. BUN 25. Creatinine 0.67. He is continued on DuoNeb inhalations, Pulmicort and Perforomist inhalations, prednisone taper. Antibiotics in the form of Zosyn. Remains on oral diuretics. NicoDerm patch in place. The patient is seen today May 24, 2025 in follow-up on the regular medical floor. He is currently sitting up in a chair at the bedside. Awake and alert in no acute distress. Maintaining O2 saturations in the 90s on 6 L high flow nasal cannula. He has been afebrile. Hemodynamically stable. Initial blood culture was positive for Staphylococcus hominis. Follow-up blood culture revealed no growth. Sputum culture revealed no growth. White count 16.7. Hemoglobin 12.7. Platelets 246. Sodium 141. Potassium 4.6. Bicarb 38. BUN 18. Creatinine 0.7. Glucose 90. He remains on DuoNeb inhalations, Pulmicort and Perforomist inhalations, prednisone taper. Antibiotics in the form of Augmentin. Remains on oral diuretics. NicoDerm patch in place. The patient is seen today May 25, 2025 in follow-up on the regular medical floor. He is currently resting in bed. Awake and alert in no acute distress. Maintaining O2 saturations in the high 80s to low 90s on 6 L high flow nasal cannula. He is afebrile. Hemodynamically stable. Follow-up blood culture revealed no growth. Sputum culture revealed no growth. White count 13.0. Hemoglobin 13.1. Platelets 219. Glucose 109. He remains on DuoNeb inhalations, Symbicort, prednisone taper. Antibiotics in the form of Augmentin. NicoDerm patch in place. Continued on Suboxone. The patient is seen today May 26, 2025 in follow-up on the regular medical floor. He is currently sitting up in a chair at the bedside. Awake and alert in no acute distress. He has been calm and cooperative. He remains on DuoNeb and elations, Symbicort, prednisone taper. NicoDerm patch in place. Remains on his Suboxone. Follow-up blood cultures revealed no growth. Sputum culture revealed no growth. Glucose 124. The patient is seen today May 27, 2025 in follow-up on the regular medical floor. He is awake and alert in no acute distress. Sitting up in a chair. Denies any worsening shortness of breath, cough or congestion. He is still requiring oxygen at 7 L/min per nasal cannula. He remains on DuoNeb inhalations, Symbicort, prednisone taper. NicoDerm patch in place. Blood culture revealed no growth. Sputum culture revealed no growth. Glucose 86. The patient is seen today May 28, 2025 in follow-up on the regular medical floor. He is sitting up in bed. Awake and alert in no acute distress. Denies any worsening shortness of breath, cough or congestion. He is maintaining good O2 saturations in the 90s on 5 L/min per nasal cannula. Has been afebrile. Hemodynamically stable. White count 10.1. Hemoglobin 13.5. Platelets 248. Sodium 139. Potassium 4.0. Bicarb 36. BUN 22. Creatinine 0.8. Glucose 85. Procalcitonin negative at 0.09. He remains on DuoNeb inhalations, Symbicort, prednisone taper. NicoDerm patch in place. Remains on oral diuretics. The patient is seen today May 29, 2025 in follow-up on the regular medical floor. He is awake and alert in no acute distress. Currently sitting up in bed. Denies any worsening shortness of breath, cough or congestion. He is currently maintaining good O2 saturations in the 90s on 5 L/min per nasal cannula. No IV fluids. Glucose 80. He remains on DuoNeb inhalations, Symbicort, prednisone taper. NicoDerm patch in place. Remains on oral diuretics. Objective - Vital Signs Vital signs: Vital Signs Temp 97.7 F 05/29/25 08:48 Pulse 80 07/12/25 08:48 Resp 20 05/29/25 08:48 BP 106/72 05/29/25 08:48 Pulse Ox 90 L 05/29/25 08:48 FiO2 3 05/17/25 00:00 Intake & Output 05/28/25 05/29/25 05/29/25 18:59 06:59 18:59 Intake Total 3840 Balance 3840 Weight 45.5 kg Intake: Oral 3840 Other: Voiding Method Toilet Toilet Urinal Urinal # Voids 4 12 # Bowel Movements 0 - Exam GENERAL EXAM: Awake, alert, cooperative 64-year-old male, sitting up in bed, on 5 L nasal cannula, in no apparent distress. HEAD: Normocephalic. EYES: Normal reaction of pupils, equal size. NOSE: Clear with pink turbinates. THROAT: No erythema or exudates. NECK: No masses, no JVD. CHEST: No chest wall deformity. LUNGS: Equal air entry with bilateral scattered rhonchi. CVS: S1 and S2 normal with no audible murmur, irregular rhythm. ABDOMEN: No hepatosplenomegaly, normal bowel sounds, no guarding or rigidity. SPINE: Evidence of kyphosis. SKIN: No rashes CENTRAL NERVOUS SYSTEM: No focal deficits, tone is normal in all 4 extremities. EXTREMITIES: There is no peripheral edema. No clubbing, no cyanosis. Peripheral pulses are intact. - Labs CBC & Chem 7: 05/28/25 03:14 05/28/25 03:14 Labs: Abnormal Lab Results - Last 24 Hours (Table) 05/28/25 05/28/25 05/28/25 Range/Units 11:49 16:36 21:18 POC Glucose (mg/dL) 165 H 125 H 144 H (70-110) mg/dL Assessment and Plan Assessment: Acute hypoxic and hypercapnic respiratory failure secondary to acute exacerbation of COPD Acute diastolic congestive heart failure with tachyarrhythmia and supraventricular tachycardia requiring adenosine and Cardizem Acute leukocytosis, improving Acute kidney injury, recovered History of loculated left-sided pleural effusion with previous pigtail catheter placement History of alcohol and Multi substance abuse Tobacco dependence syndrome Chronic dysphagia Staph hominis bacteremia, follow-up blood cultures revealed no growth Plan: The patient was seen and evaluated Labs and medications reviewed Continued on DuoNeb inhalations Continue Symbicort Continue prednisone taper Currently on 5 L high flow nasal cannula Titrate down the FiO2 as tolerated He is cleared for discharge from the pulmonary standpoint Case management still working on placement Now maybe Sharon gibson [place] next week I have personally seen and examined the patient, performed the documentation and the assessment and plan as written. Number of minutes spent on the visit: 10 Dictation was produced using [employer] dictation software. Please excuse any grammatical, word or spelling errors.
[2025-05-29 11:16] LABS: Glucose,Whole Blood 126 mg/dL (70-110)
--- NOTE | 2025-05-29 16:05 | P.PN ---
Subjective Progress Note Date: 05/29/25 Principal diagnosis: Reason for follow-up is leukocytosis/aspiration pneumonia Patient is a-year-old male with COPD, diabetes mellitus, history of alcohol use disorder, polysubstance abuse, loculated left-sided pleural effusion who initially presented on 05/09/2025 with altered mental status and acute hypoxic hypercapnic respiratory failure. He was initially seen in the ICU and placed on BiPAP and treated for pneumonia with Rocephin for 7 days and azithromycin. Blood culture revealed Staphylococcus hominis, and that has prompted this consultation. Patient subsequently had worsening of respiratory status and was concern for possible aspiration pneumonitis On today's evaluation that is 05/29/2024, patient did have a temperature of 98 F this morning and denies having any chills, patient is on 5 L nasal oxygen and breathing comfortably no chest pain or cough, the patient did not have any nausea vomiting abdominal pain or any diarrhea. No new lab has been obtained today Objective - Vital Signs Vital signs: Vital Signs Temp 98.5 F 05/29/25 14:00 Pulse 96 05/29/25 14:00 Resp 20 05/29/25 14:00 BP 102/66 05/29/25 14:00 Pulse Ox 95 05/29/25 14:00 FiO2 3 05/17/25 00:00 Intake & Output 05/28/25 05/29/25 05/29/25 18:59 06:59 18:59 Intake Total 3840 Balance 3840 Weight 45.5 kg Intake: Oral 3840 Other: Voiding Method Toilet Toilet Urinal Urinal # Voids 4 12 # Bowel Movements 0 - Exam GENERAL DESCRIPTION: An elderly male, sitting upright in bed with no distress RESPIRATORY SYSTEM: Mildly labored breathing, bilateral rhonchi HEART: S1 S2 regular rate and rhythm ABDOMEN: Soft , no tenderness EXTREMITIES: No edema feet - Labs CBC & Chem 7: 05/28/25 03:14 05/28/25 03:14 Labs: Abnormal Lab Results - Last 24 Hours (Table) 05/28/25 05/28/25 05/29/25 Range/Units 16:36 21:18 11:10 POC Glucose (mg/dL) 125 H 144 H 126 H (70-110) mg/dL Assessment and Plan (1) Sepsis Current Visit: Yes Status: Acute Code(s): A41.9 - SEPSIS, UNSPECIFIED ORGANISM SNOMED Code(s): 31609208 (2) Pneumonia Current Visit: No Status: Acute Code(s): J18.9 - PNEUMONIA, UNSPECIFIED ORGANISM SNOMED Code(s): 773107105 (3) Bacteremia Current Visit: Yes Status: Acute Code(s): R78.81 - BACTEREMIA SNOMED Code(s): 0922485 Plan: 1. Patient initially treated for pneumonia with full course of Rocephin and azithromycin which resulted in improvement of symptoms and leukocytosis. 2. Blood culture positive for Staphylococcus hominis, which is believed to be likely contaminant. Repeat blood cultures currently pending. 3. Recurrent leukocytosis was thought to be due to prednisone use, as patient was afebrile, with no clear signs of infectious process and Vancomycin discontinued. 4. On 05/19/2025 overnight patient became increasingly dyspneic and placed on high flow nasal cannula with concern for possible aspiration pneumonitis 5. Blood sputum cultures are negative and the patient white count has nor malized 6patient remains to be afebrile still requiring 5 L nasal oxygen doing well off antibiotic therapy and will monitor closely Dictation was produced using [employer] dictation software. please excuse any grammatical, word or spelling errors. Time with Patient: Less than 30
[2025-05-29 16:11] LABS: Glucose,Whole Blood 139 mg/dL (70-110)
[2025-05-29 19:51] LABS: Glucose,Whole Blood 122 mg/dL (70-110)
[2025-05-29] MEDS: NICOTINE 21MG/24HR PATCH TRANSDERM STA (21:11)
[2025-05-30 06:48] LABS: Glucose,Whole Blood 82 mg/dL (70-110)
[2025-05-30] MEDS: predniSONE 20 MG TAB PO SCH (08:22)
--- NOTE | 2025-05-30 10:35 | P.PN ---
Subjective Progress Note Date: 05/30/25 05/15/2025, the patient is being seen for a follow-up. Awake and alert and communicating. Occasional delusions. No agitation. Sitter at the bedside. Neurologic exam is nonfocal. The patient remains on Precedex running at 1.2 mcg/kg/min. I personally performed a bedside swallow evaluation on this pat ient. The patient was able to swallow properly. He was given applesauce and he was able to feed himself without any major difficulties. No cough during the swallow process. No significant shortness of breath. The patient remains on lactated Ringer at rate of 50 cc an hour. Currently is on 40 Suboxone by nasal cannula. Remains in atrial fibrillation. Cardizem is running at 10 mg an hour. Hemodynamically stable. No pressors. The white cell count at 10.7 with a hemoglobin 15.1 and the platelet count of 170. BUN is 29 with a creatinine of 0.66. Sodium is at 134 and potassium level is at 3.9. Remains on DuoNeb nebulized treatments [id number]. Remains on IV Solu-Medrol 40 mg every 12 hours. Remains on Cardizem drip and the patient will be started on metoprolol for rate control at a dose of 50 mg p.o. twice a day. The patient will be also restarted back on his routine oral medications. Will keep anticoagulation on hold for now. In terms of antibiotic coverage, the patient remains on a combination of Rocephin and vancomycin. On 05/16/2025, the patient remains on Precedex and this has been weaned down to 0.8 mcg/kg/min. This being used to control his agitation and the patient seems to be less paranoid. He is very reasonable in his discussions today. He is able to answer questions and follow commands without any focal neurological deficits. In addition, the patient is able to swallow. Overnight, he was on a BiPAP pressure of 12 or 6 cm of water with an FiO2 of 60% and currently he is on 40 Suboxone by nasal cannula. He remains in atrial fibrillation. Cardizem drip has been discontinued and the patient is currently on metoprolol 50 mg p.o. twice daily. Will not use anticoagulants based on his condition and comorbidities. No other complaints otherwise for now. His blood work shows a white cell count of 13, hemoglobin is 15.1 and a platelet count of 163. Sodium is at 133, potassium is at 4, bicarb is at 34, BUN 31 with a creatinine of 0.6. Afebrile. No significant agitation. Antibiotic coverage remains a combination of Rocephin and vancomycin. Seen today on 05/17/2025, patient remains in the ICU on Precedex he is on 3 L/min nasal cannula, Precedex is being weaned, overall the patient is appropriate, seen by psychiatry and placed on Prolixin as needed. Patient is also on ceftriaxone. Seems to be definitely less agitated, very comfortable not in any distress, apparently had significant agitation last night and yesterday. Patient is able to swallow pured diet he is now on nasal cannula and not in distress. Remains in atrial fibrillation, rate is controlled, continues to have leukocytosis with WBC count of 18.9 hemoglobin is 13.9 electrolytes are normal renal profile is normal, chest x-ray shows scattered reticular opacities, left lower lobe atelectasis in the retrocardiac area. The patient is seen today May 18, 2025 in follow-up on the regular medical floor. He was transferred out of the intensive care unit yesterday. He is currently resting in bed. Awake and alert in no acute distress. Maintaining O2 saturations in the 90s on 3 L/min per nasal cannula. He is afebrile. Hemodynamically stable. Glucose 113. Earlier blood culture revealed Staphylococcus hominis. The patient remains on vancomycin. He is continued on DuoNeb and elations, Pulmicort and Perforomist inhalations, prednisone taper. NicoDerm patch in place. Remains on the CIWA protocol. He is continued on his Suboxone. He was initiated on Prolixin by psychiatry. The patient is seen today May 19, 2025 in follow-up on the regular medical floor. He is currently sitting up in bed having lunch. Awake and alert in no acute distress. Still confused at times. evening sitter remains at the bedside. He is currently on 10 L high flow nasal cannula. He is afebrile. Hemodynamically stable. Chest x-ray continues to show a left lower lobe atelectasis. There is a large hiatal hernia. Small bilateral effusions. Cardiomegaly. Blood culture initially was positive for Staph hominis. White count 30.0. Hemoglobin 15.1. Platelets 206. Sodium 135. Potassium 3.4. Bicarb 38. BUN 20. Creatinine 0.55. Glucose 71. He remains on DuoNeb and elations, Pulmicort and Perforomist inhalations, prednisone taper. NicoDerm patch in place. Continued on Zosyn. The patient is seen today May 23, 2025 in follow-up on the regular medical floor. He is currently sitting up in bed. Awake and alert in no acute distress. Maintaining O2 saturation in the low 90s on 6 L high flow nasal cannula. He has been afebrile. Hemodynamically stable. Follow-up blood cultures revealed no growth. Sputum culture revealed no growth. White count 13.6. Hemoglobin 12.4. Platelets 239. Sodium 134. Potassium 3.7. Bicarb 38. BUN 25. Creatinine 0.67. He is continued on DuoNeb inhalations, Pulmicort and Perforomist inhalations, prednisone taper. Antibiotics in the form of Zosyn. Remains on oral diuretics. NicoDerm patch in place. The patient is seen today May 24, 2025 in follow-up on the regular medical floor. He is currently sitting up in a chair at the bedside. Awake and alert in no acute distress. Maintaining O2 saturations in the 90s on 6 L high flow nasal cannula. He has been afebrile. Hemodynamically stable. Initial blood culture was positive for Staphylococcus hominis. Follow-up blood culture revealed no growth. Sputum culture revealed no growth. White count 16.7. Hemoglobin 12.7. Platelets 246. Sodium 141. Potassium 4.6. Bicarb 38. BUN 18. Creatinine 0.7. Glucose 90. He remains on DuoNeb inhalations, Pulmicort and Perforomist inhalations, prednisone taper. Antibiotics in the form of Augmentin. Remains on oral diuretics. NicoDerm patch in place. The patient is seen today May 25, 2025 in follow-up on the regular medical floor. He is currently resting in bed. Awake and alert in no acute distress. Maintaining O2 saturations in the high 80s to low 90s on 6 L high flow nasal cannula. He is afebrile. Hemodynamically stable. Follow-up blood culture revealed no growth. Sputum culture revealed no growth. White count 13.0. Hemoglobin 13.1. Platelets 219. Glucose 109. He remains on DuoNeb inhalations, Symbicort, prednisone taper. Antibiotics in the form of Augmentin. NicoDerm patch in place. Continued on Suboxone. The patient is seen today May 26, 2025 in follow-up on the regular medical floor. He is currently sitting up in a chair at the bedside. Awake and alert in no acute distress. He has been calm and cooperative. He remains on DuoNeb and elations, Symbicort, prednisone taper. NicoDerm patch in place. Remains on his Suboxone. Follow-up blood cultures revealed no growth. Sputum culture revealed no growth. Glucose 124. The patient is seen today May 27, 2025 in follow-up on the regular medical floor. He is awake and alert in no acute distress. Sitting up in a chair. Denies any worsening shortness of breath, cough or congestion. He is still requiring oxygen at 7 L/min per nasal cannula. He remains on DuoNeb inhalations, Symbicort, prednisone taper. NicoDerm patch in place. Blood culture revealed no growth. Sputum culture revealed no growth. Glucose 86. The patient is seen today May 28, 2025 in follow-up on the regular medical floor. He is sitting up in bed. Awake and alert in no acute distress. Denies any worsening shortness of breath, cough or congestion. He is maintaining good O2 saturations in the 90s on 5 L/min per nasal cannula. Has been afebrile. Hemodynamically stable. White count 10.1. Hemoglobin 13.5. Platelets 248. Sodium 139. Potassium 4.0. Bicarb 36. BUN 22. Creatinine 0.8. Glucose 85. Procalcitonin negative at 0.09. He remains on DuoNeb inhalations, Symbicort, prednisone taper. NicoDerm patch in place. Remains on oral diuretics. The patient is seen today May 29, 2025 in follow-up on the regular medical floor. He is awake and alert in no acute distress. Currently sitting up in bed. Denies any worsening shortness of breath, cough or congestion. He is currently maintaining good O2 saturations in the 90s on 5 L/min per nasal cannula. No IV fluids. Glucose 80. He remains on DuoNeb inhalations, Symbicort, prednisone taper. NicoDerm patch in place. Remains on oral diuretics. The patient is seen today May 30, 2025 in follow-up on the regular medical floor. He is currently sitting up in bed. Awake and alert in no acute distress. He denies any worsening shortness of breath, cough or congestion. He is maintaining O2 saturations in the mid 90s on 5 L/min per nasal cannula. He has been afebrile. Hemodynamically stable. Sputum culture revealed no growth. Follow-up blood culture revealed no growth. Glucose 82. He remains on DuoNeb inhalations, Symbicort, prednisone taper. NicoDerm patch in place. Remains on Suboxone. Objective - Vital Signs Vital signs: Vital Signs Temp 98.0 F 05/30/25 08:00 Pulse 75 05/30/25 08:00 Resp 20 05/30/25 08:00 BP 109/65 05/30/25 08:00 Pulse Ox 94 L 05/30/25 08:35 FiO2 3 05/17/25 00:00 Intake & Output 05/29/25 05/30/25 05/30/25 18:59 06:59 18:59 Intake Total 4190 Output Total 2100 Balance 2089 Weight 52 kg Intake: Oral 4190 Output: Urine 2100 Other: # Voids 1 5 - Exam GENERAL EXAM: Awake, 64-year-old male, resting in bed, on 5 L nasal cannula, in no apparent distress. HEAD: Normocephalic. EYES: Normal reaction of pupils, equal size. NOSE: Clear with pink turbinates. THROAT: No erythema or exudates. NECK: No masses, no JVD. CHEST: No chest wall deformity. LUNGS: Equal air entry with bilateral scattered rhonchi. CVS: S1 and S2 normal with no audible murmur, irregular rhythm. ABDOMEN: No hepatosplenomegaly, normal bowel sounds, no guarding or rigidity. SPINE: Evidence of kyphosis. SKIN: No rashes CENTRAL NERVOUS SYSTEM: No focal deficits, tone is normal in all 4 extremities. EXTREMITIES: There is no peripheral edema. No clubbing, no cyanosis. Peripheral pulses are intact. - Labs CBC & Chem 7: 05/28/25 03:14 05/28/25 03:14 Labs: Abnormal Lab Results - Last 24 Hours (Table) 05/29/25 05/29/25 05/29/25 Range/Units 11:10 16:10 19:49 POC Glucose (mg/dL) 126 H 139 H 122 H (70-110) mg/dL Assessment and Plan Assessment: Acute hypoxic and hypercapnic respiratory failure secondary to acute exacerbation of COPD Acute diastolic congestive heart failure with tachyarrhythmia and supraventricular tachycardia requiring adenosine and Cardizem Acute leukocytosis, improving Acute kidney injury, recovered History of loculated left-sided pleural effusion with previous pigtail catheter placement History of alcohol and Multi substance abuse Tobacco dependence syndrome Chronic dysphagia Staph hominis bacteremia, follow-up blood cultures revealed no growth Plan: The patient was seen and evaluated Medications reviewed Continued on DuoNeb inhalations Continue Symbicort Continue prednisone taper Currently on 5 L high flow nasal cannula Titrate down the FiO2 as tolerated He is cleared for discharge from the pulmonary standpoint Case management working on [facility] This patient was seen independently by the pulmonary nurse practitioner addressing pulmonary issues I have personally seen and examined the patient, performed the documentation and the assessment and plan as written. Number of minutes spent on the visit: 24 Dictation was produced using [employer] dictation software. Please excuse any grammatical, word or spelling errors.
[2025-05-30 11:14] LABS: Glucose,Whole Blood 82 mg/dL (70-110)
--- NOTE | 2025-05-30 15:36 | P.PN ---
Subjective Progress Note Date: 05/30/25 Principal diagnosis: Reason for follow-up is leukocytosis/aspiration pneumonia Patient is a-year-old male with COPD, diabetes mellitus, history of alcohol use disorder, polysubstance abuse, loculated left-sided pleural effusion who initially presented on 05/09/2025 with altered mental status and acute hypoxic hypercapnic respiratory failure. He was initially seen in the ICU and placed on BiPAP and treated for pneumonia with Rocephin for 7 days and azithromycin. Blood culture revealed Staphylococcus hominis, and that has prompted this consultation. Patient subsequently had worsening of respiratory status and was concern for possible aspiration pneumonitis On today's evaluation that is 05/30/2025, Patient is afebrile patient is currently on 5 L nasal oxygen and denies having any shortness of breath, the patient denies any chest pain or cough, the patient denies any nausea vomiting did not have any abdominal pain and no diarrhea. No new lab has been obtained today Objective - Vital Signs Vital signs: Vital Signs Temp 98.0 F 05/30/25 08:00 Pulse 75 05/30/25 08:00 Resp 20 05/30/25 08:00 BP 109/65 05/30/25 08:00 Pulse Ox 94 L 05/30/25 08:35 FiO2 3 05/17/25 00:00 Intake & Output 05/29/25 05/30/25 05/30/25 18:59 06:59 18:59 Intake Total 4190 Output Total 2100 Balance 0 Weight 52 kg Intake: Oral 4190 Output: Urine 2100 Other: # Voids 1 5 - Exam GENERAL DESCRIPTION: An elderly male, sitting upright in bed with no distress RESPIRATORY SYSTEM: Mildly labored breathing, bilateral rhonchi HEART: S1 S2 regular rate and rhythm ABDOMEN: Soft , no tenderness EXTREMITIES: No edema feet - Labs CBC & Chem 7: 05/28/25 03:14 05/28/25 03:14 Labs: Abnormal Lab Results - Last 24 Hours (Table) 05/29/25 05/29/25 Range/Units 16:10 19:49 POC Glucose (mg/dL) 139 H 122 H (70-110) mg/dL Assessment and Plan (1) Sepsis Current Visit: Yes Status: Acute Code(s): A41.9 - SEPSIS, UNSPECIFIED ORG ANISM SNOMED Code(s): 87678568 (2) Pneumonia Current Visit: No Status: Acute Code(s): J18.9 - PNEUMONIA, UNSPECIFIED ORGANISM SNOMED Code(s): 741543478 (3) Bacteremia Current Visit: Yes Status: Acute Code(s): R78.81 - BACTEREMIA SNOMED C ode(s): 1098092 Plan: 1. Patient initially treated for pneumonia with full course of Rocephin and azithromycin which resulted in improvement of symptoms and leukocytosis. 2. Blood culture positive for Staphylococcus hominis, which is believed to be likely contaminant. Repeat blood cultures currently pending. 3. Recurrent leukocytosis was thought to be due to prednisone use, as patient was afebrile, with no clear signs of infectious process and Vancomycin discontinued. 4. On 05/19/2025 overnight patient became increasingly dyspneic and placed on hi gh flow nasal cannula with concern for possible aspiration pneumonitis for which the patient has completed his antibiotic course 5. Blood sputum cultures are negative and the patient white count has normalized 6patient remains to be afebrile still requiring 5 L nasal oxygen currently waiting for placement and will monitor closely off antibiotic Dictation was produced using [employer] dictation software. please excuse any grammatical, word or spelling errors. Time with Patient: Less than 30
[2025-05-30 16:21] LABS: Glucose,Whole Blood 128 mg/dL (70-110)
[2025-05-30 20:27] LABS: Glucose,Whole Blood 161 mg/dL (70-110)
[2025-05-31 06:34] LABS: Glucose,Whole Blood 77 mg/dL (70-110)
[2025-05-31 07:36] VITALS: BP 106/76; PULSE 88; RESP 17; TEMP 98.1
[2025-05-31 11:31] LABS: Glucose,Whole Blood 119 mg/dL (70-110)
--- NOTE | 2025-06-01 05:14 | PN ---
PROGRESS NOTE DATE OF SERVICE: 05/29/2025 CHIEF COMPLAINT: CHF and COPD. HISTORY OF PRESENT ILLNESS: This gentleman is stable and we are awaiting for a guardian to be assigned. PHYSICAL EXAMINATION: GENERAL: He is awake and alert. CHEST: Clear. CARDIAC: Normal. IMPRESSION: 1. Exacerbation of chronic obstructive pulmonary disease. 2. Respiratory failure. 3. Congestive heart failure. 4. History of drug abuse. 5. Cellulitis of the legs. PLAN: No change in program at this time. MMODL / IJN: [id number] /
--- NOTE | 2025-06-01 05:41 | PN ---
PROGRESS NOTE DATE OF SERVICE: 05/30/2025 CHIEF COMPLAINT: COPD and congestive heart failure. HISTORY OF PRESENT ILLNESS: This gentleman remains the same. Guardianship is planned. PHYSICAL EXAMINATION: VITAL SIGNS: Normal. CHEST: Clear. CARDIAC: Normal. ABDOMEN: Soft, nontender. EXTREMITIES: Legs are improved. IMPRESSION: 1. Acute respiratory failure. 2. Congestive heart failure. 3. Chronic obstructive pulmonary disease. 4. Opioid abuse. 5. Cellulitis of the legs. PLAN: Await guardianship assignment. MMODL / IJN: [id number] /
--- NOTE | 2025-06-01 05:45 | PN ---
PROGRESS NOTE DATE OF SERVICE: 05/31/2025 CHIEF COMPLAINT: Acute respiratory failure. HISTORY OF PRESENT ILLNESS: There has been no change in this gentleman's condition and we await for discharge. PHYSICAL EXAMINATION: CHEST: Clear. CARDIAC: Normal. ABDOMEN: Soft, nontender. IMPRESSION: 1. Chronic obstructive pulmonary disease. 2. Opioid abuse. PLAN: No change in program. MMODL / IJN: [id number] /
--- NOTE | 2025-06-03 09:15 | P.PN ---
Subjective Progress Note Date: 05/31/25 Principal diagnosis: Reason for follow-up is leukocytosis/aspiration pneumonia Patient is a-year-old male with COPD, diabetes mellitus, history of alcohol use disorder, polysubstance abuse, loculated left-sided pleural effusion who initially presented on 05/09/2025 with altered mental status and acute hypoxic hypercapnic respiratory failure. He was initially seen in the ICU and placed on BiPAP and treated for pneumonia with Rocephin for 7 days and azithromycin. Blood culture revealed Staphylococcus hominis, and that has prompted this consultation. Patient subsequently had worsening of respiratory status and was concern for possible aspiration pneumonitis On today's evaluation that is 05/31/2025, patient has been afebrile, patient is breathing comfortably and is currently on 5 L nasal cannula oxygen, patient denies having any chest pain and cough, patient denies nausea vomiting or diarrhea and no abdominal pain. No new labs were obtained today Objective - Vital Signs Vital signs: Vital Signs Temp 98.1 F 05/31/25 07:35 Pulse 88 05/31/25 07:35 Resp 17 05/31/25 07:35 BP 106/76 05/31/25 07:35 Pulse Ox 90 L 05/31/25 09:02 FiO2 3 05/17/25 00:00 Intake & Output 05/30/25 05/31/25 05/31/25 18:59 06:59 18:59 Intake Total 1080 Output Total 1100 Balance -20 Weight 74 kg Intake: Oral 1080 Output: Urine 1100 Other: Voiding Method Toilet Urinal # Voids 3 # Bowel Movements 0 - Exam GENERAL DESCRIPTION: An elderly male, sitting upright in bed with no distress RESPIRATORY SYSTEM: Mildly labored breathing, bilateral rhonchi HEART: S1 S2 regular rate and rhythm ABDOMEN: Soft , no tenderness EXTREMITIES: No edema feet - Labs CBC & Chem 7: 05/28/25 03:14 05/28/25 03:14 Labs: Abnormal Lab Results - Last 24 Hours (Table) 05/30/25 05/30/25 05/31/25 Range/Units 16:20 20:26 11:29 POC Glucose (mg/dL) 128 H 161 H 119 H (70-110) mg/dL Assessment and Plan (1) Sepsis Status: Acute Code(s): A41.9 - SEPSIS, UNSPECIFIED ORGANISM SNOMED Code(s): 37559768 (2) Pneumonia Status: Acute Code(s): J18.9 - PNEUMONIA, UNSPECIFIED ORGANISM SNOMED Code(s): 348825248 (3) Bacteremia Status: Acute Code(s): R78.81 - BACTEREMIA SNOMED Code(s): 4034658 Plan: 1. Patient initially treated for pneumonia with full course of Rocephin and azithromycin which resulted in improvement of symptoms and leukocytosis. 2. Blood culture positive for Staphylococcus hominis, which is believed to be likely contaminant. Repeat blood cultures currently pending. 3. Recurrent leukocytosis was thought to be due to prednisone use, as patient was afebrile, with no clear signs of infectious process and Vancomycin discontinued. 4. On 05/19/2025 overnight patient became increasingly dyspneic and placed on high flow nasal cannula with concern for possible aspiration pneumonitis for which the patient has completed his antibiotic course and will not need any antibiotic on discharge as the patient Blood sputum cultures are negative and the patient white count has normalized Dictation was produced using [employer] dictation software. please excuse any grammatical, word or spelling errors. Time with Patient: Less than 30
== END 2025-05-31 12:22 | disposition left against medical advice (07) | DRG 871 ==
LOC: EC 16:53 → 2SICU 18:19 → 5NMEDONC 05-17 22:31 → 3SCARD 05-19 04:12 → 4SSUR 05-23 10:10
PROVIDERS: ADMIT Family Medicine; ATTEND Family Medicine
PROC: 3E033RZ Introduction of Antiarrhythmic into Peripheral Vein, Percutaneous Approach (ICD-10-PCS; principal; 2025-05-09)
PROC: 5A09457 Assistance with Respiratory Ventilation, 24-96 Consecutive Hours, Continuous Positive Airway Pressure (ICD-10-PCS; 2025-05-09)
DX: A41.1 Sepsis due to other specified staphylococcus (principal); I50.31 Acute diastolic (congestive) heart failure; J96.02 Acute respiratory failure with hypercapnia; N17.0 Acute kidney failure with tubular necrosis; J69.0 Pneumonitis due to inhalation of food and vomit; J96.01 Acute respiratory failure with hypoxia; K83.8 Other specified diseases of biliary tract; F11.20 Opioid dependence, uncomplicated; J44.1 Chronic obstructive pulmonary disease with (acute) exacerbation; I11.0 Hypertensive heart disease with heart failure; F20.9 Schizophrenia, unspecified; F10.20 Alcohol dependence, uncomplicated; E11.9 Type 2 diabetes mellitus without complications; F32.A Depression, unspecified; I47.19 Other supraventricular tachycardia; Z59.00 Homelessness unspecified; J98.11 Atelectasis; E87.4 Mixed disorder of acid-base balance; L03.115 Cellulitis of right lower limb; L03.116 Cellulitis of left lower limb; I48.91 Unspecified atrial fibrillation; F60.3 Borderline personality disorder; F60.0 Paranoid personality disorder; R13.10 Dysphagia, unspecified; F41.9 Anxiety disorder, unspecified; F55.8 Abuse of other non-psychoactive substances; T50.906A Underdosing of unspecified drugs, medicaments and biological substances, initial encounter; R74.01 Elevation of levels of liver transaminase levels; S80.811A Abrasion, right lower leg, initial encounter; M43.8X2 Other specified deforming dorsopathies, cervical region; I87.2 Venous insufficiency (chronic) (peripheral); K44.9 Diaphragmatic hernia without obstruction or gangrene; T50.2X5A Adverse effect of carbonic-anhydrase inhibitors, benzothiadiazides and other diuretics, initial encounter; M41.9 Scoliosis, unspecified; F17.200 Nicotine dependence, unspecified, uncomplicated; Z53.29 Procedure and treatment not carried out because of patient's decision for other reasons; Z91.148 Patient's other noncompliance with medication regimen for other reason; Z79.51 Long term (current) use of inhaled steroids; Z79.1 Long term (current) use of non-steroidal anti-inflammatories (NSAID); Z79.899 Other long term (current) drug therapy; Z86.711 Personal history of pulmonary embolism; Z86.718 Personal history of other venous thrombosis and embolism; Z71.3 Dietary counseling and surveillance
CPT/HCPCS: 36415; 36600; 70450; 71045; 74230; 76705; 80048; 80053; 80202; 81003; 82565; 82805; 83036; 83605; 83735; 83880; 84145; 84439; 84443; 84484; 85025; 85027; 85379; 85610; 85730; 86140; 87040; 87070; 87077; 87186; 87205; 93306; 93970; 94640; 94660; 94760; 96365; 96375; 96376; 99291

== ENCOUNTER 2025-06-02 12:51 | Inpatient (IN) | payer OTHER ==
[2025-06-02 13:27] LABS: Basophils # (A) 0.02 10*3/uL (0.00-0.10); Basophils % (A) 0.3 %; Eosinophils # (A) 0.07 10*3/uL (0.04-0.35); Eosinophils % (A) 0.9 %; HCT 44.1 % (39.6-50.0); HGB 14.6 g/dL (13.0-17.0); Lymphocytes # (A) 1.65 10*3/uL (0.90-5.00); Lymphocytes % (A) 21.8 %; MCH 30.8 pg (27.0-32.0); MCHC 33.1 g/dL (32.0-37.0); MCV 93.0 fL (80.0-97.0); Monocytes # (A) 1.00 10*3/uL (0.20-1.00); Monocytes % (A) 13.2 %; Neutrophils # (A) 4.82 10*3/uL (1.80-7.70); Neutrophils % (A) 63.7 %; Platelet Count 238 10*3/uL (140-440); RBC 4.74 10*6/uL (4.40-5.60); RDW 13.9 % (11.5-14.5); WBC 7.57 10*3/uL (4.50-10.00)
[2025-06-02] MEDS: methylPREDNISolone SOD SUCCI 125 MG/2 ML VIAL IV STA (13:36)
[2025-06-02] MEDS: SODIUM CHLORIDE 0.9% 500 ML 500 ML IV ONE (13:36)
[2025-06-02] MEDS: SODIUM CHLORIDE 0.9% 500 ML IV ONE (13:37)
[2025-06-02 13:51] LABS: ALT 28 U/L (4-49); AST 30 U/L (17-59); African American GFR (CKD) >90 (>60 ml/min/1.73 sqM); Albumin 3.9 g/dL (3.5-5.0); Alkaline Phosphatase 98 U/L (38-126); Anion Gap 10 mmol/L; Blood Urea Nitrogen 37 mg/dL (9-20); Calcium 9.6 mg/dL (8.4-10.2); Carbon Dioxide 34 mmol/L (22-30); Chloride 89 mmol/L (98-107); Glucose 124 mg/dL (74-99); Non-African American GFR(CKD) >90 (>60 ml/min/1.73 sqM); Potassium 4.5 mmol/L (3.5-5.1); Sodium 133 mmol/L (137-145); Total Protein 7.0 g/dL (6.3-8.2)
[2025-06-02 13:56] LABS: INR 1.1 (<1.2); Partial Thromboplastin Time 23.1 sec (22.0-30.0); Prothrombin Time 12.4 sec (10.0-12.5)
[2025-06-02 14:00] LABS: NT-Pro-B-Type Natriuretic Pept 3010 pg/mL
--- NOTE | 2025-06-02 14:03 | XR ---
EXAMINATION TYPE: XR chest 1V portable DATE OF EXAM: 06/02/2025 1:24 PM COMPARISON: Chest radiographs from 05/19/2025. CLINICAL INDICATION: Male, 64 years old with history of sob; [facility] TECHNIQUE: XR chest 1V portable Frontal view of the chest. FINDINGS: Lungs/Pleura: There is no evidence of pleural effusion, focal consolidation, or pneumothorax. Pulmonary vascularity: Unremarkable. Heart/mediastinum: Cardiomediastinal silhouette is enlarged. Musculoskeletal: No acute osseous pathology. Position of the left clavicle. Other findings: None IMPRESSION: 1. Cardiomegaly, pulmonary vascular congestion and bilateral pleural effusions. Correlate with BNP f or congestive heart failure. 2. COPD changes. [facility], , 06/02/2025 2:01 PM
[2025-06-02] MEDS: DEXTROSE 5% IN WATER 100 ML with AMIODARONE 150 MG IV ONE (14:42)
[2025-06-02] MEDS: AMIODARONE 360 MG in DEXTROSE 5% IN WATER 200 ML IV ONE (14:55)
[2025-06-02] MEDS: diphenhydrAMINE 50 MG/ML 1 ML VIAL IVP STA (15:48)
[2025-06-02] MEDS: METOCLOPRAMIDE 5 MG/ML 2 ML VIAL IVP STA (15:48)
[2025-06-02] MEDS: MORPHINE SULFATE 4 MG/ML SYRINGE IVP STA (15:49)
--- NOTE | 2025-06-02 15:58 | ED ---
SOB HPI - General Chief Complaint: Shortness of Breath Stated Complaint: PHILIPPE Time Seen by Provider: 06/02/25 13:00 Source: patient, EMS Mode of arrival: EMS - History of Present Illness Initial Comments: 64-year-old male with past medical history of hypertension, diabetes, COPD who presents to the emergency department with shortness of breath. EMS were called to the patient's residence for shortness of breath. They found the patient to have oxygen saturation of 88%. He was not wearing any oxygen per EMS however the patient reports that he is supposed to wear oxygen for his COPD. He denies using inhalers or taking any of his medications. He denies chest pain. Patient found to be in A-fib which he states he has a history of. Patient admits to me that he is on anticoagulation but has not taken it in 2 days. I cannot find an anticoagulant on his medication list. Upon review of the patient's record it demonstrates that he left AGAINST MEDICAL ADVICE 2 days ago however it appears that the patient was supposed to be appointed a guardian and be placed in a long-term facility. Denies fevers, chills or cough. - Related Data Home Medications Medication Instructions Recorded Confirmed Albuterol Inhaler [Ventolin Hfa 2 puff INHALATION RT-Q6H PRN 05/09/25 06/02/25 Inhaler] Albuterol Nebulized [Ventolin 2.5 mg INHALATION RT-QID PRN 05/09/25 06/02/25 Nebulized] Budesonide-Formot 160-4.5 Mcg 2 puff INHALATION RT-BID 05/09/25 06/02/25 [Symbicort 160-4.5 Mcg Inhaler] Buprenorphine HCl/Naloxone HCl 1 film SL BID 05/09/25 06/02/25 [Suboxone 8 mg-2 mg Sl Film] Furosemide [Lasix] 80 mg PO DAILY 05/09/25 06/02/25 Meloxicam [Mobic] 15 mg PO DAILY 05/09/25 06/02/25 Multivitamins, Thera [Multivitamin 1 tab PO DAILY 05/09/25 06/02/25 (formulary)] Mupirocin 2% Oint [Bactroban 2% 1 applic TOPICAL TID 05/09/25 06/02/25 Oint] Nicotine 21Mg/24Hr Patch [Habitrol] 1 patch TRANSDERM DAILY PRN 05/09/25 06/02/25 Metoprolol Succinate (ER) [Toprol 50 mg PO DAILY 06/02/25 06/02/25 Xl] Allergies Allergy/AdvReac Type Severity Reaction Status Date / Time No Known Allergies Allergy Verified 05/09/25 18:47 Review of Systems ROS Statement: Those systems with pertinent positive or pertinent negative responses have been documented in the HPI. ROS Other: All systems not noted in ROS Statement are negative. Past Medical History Past Medical History: COPD, Diabetes Mellitus, Deep Vein Thrombosis (DVT), Hypertension, Musculoskeletal Disorder, Pneumonia, Pulmonary Embolus (PE) Additional Past Medical History / Comment(s): "broken back 01/06/19", "heart arrhythmia's," DVT right leg, PE History of Any Multi-Drug Resistant Organisms: None Reported Past Surgical History: Orthopedic Surgery Additional Past Surgical History / Comment(s): left clavicle, jaw, lt leg Past Anesthesia/Blood Transfusion Reactions: No Reported Reaction Past Psychological History: Anxiety, Depression, Schizophrenia Smoking Status: Former smoker Past Alcohol Use History: None Reported, Abuse, Daily, Heavy Past Drug Use History: None Reported - Past Family History Sister(s) Family Medical History: Cancer Additional Family Medical History / Comment(s): 2 sisters from cancer Mother Family Medical History: Coronary Artery Disease (CAD) Father Additional Family Medical History / Comment(s): Alcoholic General Exam General appearance: alert, in no apparent distress Head exam: Present: atraumatic, normocephalic, normal inspection Eye exam: Present: normal appearance, PERRL, EOMI. Absent: scleral icterus, conjunctival injection, periorbital swelling ENT exam: Present: normal exam, mucous membranes moist Neck exam: Present: normal inspection. Absent: tenderness, meningismus, lymphadenopathy Respiratory exam: Present: rales, decreased breath sounds. Absent: respiratory distress, wheezes, rhonchi, stridor Cardiovascular Exam: Present: tachycardia, irregular rhythm, normal heart sounds. Absent: systolic murmur, diastolic murmur, rubs, gallop, clicks GI/Abdominal exam: Present: soft, normal bowel sounds. Absent: distended, tenderness, guarding, rebound, rigid Extremities exam: Present: normal inspection, full ROM, normal capillary refill. Absent: tenderness, pedal edema, joint swelling, calf tenderness Back exam: Present: normal inspection Neurological exam: Present: alert, oriented X3, CN II-XII intact Psychiatric exam: Present: normal affect, normal mood Skin exam: Present: warm, dry, intact, normal color. Absent: rash Course Vital Signs 06/02/25 06/02/25 06/02/25 12:55 13:37 13:43 Temperature 98.2 F Pulse Rate 172 H 156 H Pulse Rate [ Fishing Captain ] Respiratory 20 18 20 Rate Blood Pressure 94/71 93/80 O2 Sat by Pulse 96 94 L Oximetry 06/02/25 06/02/25 06/02/25 13:46 14:01 14:43 Temperature Pulse Rate 174 H Pulse Rate [ 163 H Fishing Captain ] Respiratory 18 18 Rate Blood Pressure 107/84 O2 Sat by Pulse 96 Oximetry 06/02/25 06/02/25 06/02/25 16:00 17:33 20:15 Temperature Pulse Rate 149 H 134 H 125 H Pulse Rate [ Fishing Captain ] Respiratory 18 18 22 Rate Blood Pressure 102/82 112/83 O2 Sat by Pulse 98 96 Oximetry Medical Decision Making - Medical Decision Making Was pt. sent in by a medical professional or institution (, PA, OPTICAL ENGINEERING MANAGER, urgent care, hospital, or prison...) When possible be specific @ -No Did you speak to anyone other than the patient for history (EMS, parent, family, police, friend...)? What history was obtained from this source @ -Spoke with EMS for history Did you review nursing and triage notes (agree or disagree)? Why? @ -I reviewed and agree with nursing and triage notes Were old charts reviewed (outside hosp., previous admission, EMS record, old EKG, old radiological studies, urgent care reports/EKG's, prison records)? Report findings @ -I reviewed the progress note from the . Patient did leave AGAINST MEDICAL ADVICE however had no capacity to make this decision per psychiatry Differential Diagnosis (chest pain, altered mental status, abdominal pain women, abdominal pain men, vaginal bleeding, weakness, fever, dyspnea, syncope, headache, dizziness, GI bleed, back pain, seizure, CVA, palpatations, mental hea lth, musculoskeletal)? @ -Differential Dyspnea: Coronary syndrome, arrhythmia, tamponade, asthma, COPD, pulmonary embolism, pneumonia, pneumothorax, pulmonary effusion, anaphylaxis, diabetic ketoacidosis, flailed chest, pulmonary contusion, diaphragmatic rupture, anemia, neuromuscular, this is not meant to be an all-inclusive list. EKG interpreted by me (3pts min.). @ -Yes which demonstrates A-fib with a rate of 173. QRS 89. QTc of 347. No acute ST segment elevations or depressions X-rays interpreted by me (1pt min.). @ -Yes which demonstrates acute heart failure CT interpreted by me (1pt min.). @ -None done U/S interpreted by me (1pt. min.). @ -None done What testing was considered but not performed or refused? (CT, X-rays, U/S, labs)? Why? @ -None What meds were considered but not given or refused? Why? @ -Cardizem however patient does have a low blood pressure Did you discuss the management of the patient with other professionals (professionals i.e. , PA, OPTICAL ENGINEERING MANAGER, lab, RT, psych nurse, psychologist social, power digger operator, teacher, regulatory compliance officer, correctional case manager)? Give summary @ -I discussed the case with Dr. Velazquez who did agree that the patient has no capacity to make his own decisions Was smoking cessation discussed for >3mins.? @ -No Was critical care preformed (if so, how long)? @ -35 minutes for amiodarone and heparin drip Were there social determinants of health that impacted care today? How? (Homelessness, low income, unemployed, alcoholism, drug addiction, transport ation, low edu. Level, literacy, decrease access to med. care, skilled nursing, rehab)? @ -Reportedly the patient is homeless and staying at a friend's house Was there de-escalation of care discussed even if they declined (Discuss DNR or withdrawal of care, Hospice)? DNR status @ -No What co-morbidities impacted this encounter? (DM, HTN, Smoking, COPD, CAD, Cancer, CVA, ARF, Chemo, Hep., AIDS, mental health diagnosis, sleep apnea, morbid obesity)? @ -A-fib, congestive heart failure, COPD Was patient admitted / discharged? Hospital course, mention meds given and route, prescriptions, significant lab abnormalities, going to OR and other pertinent info. @ -Upon arrival patient seen and evaluated in bed 1. Thorough history and physical exam was performed. He is placed on continuous pulse ox and cardiac monitoring. Twelve-lead EKG is obtained which demonstrates A-fib with a rapid rate. Patient is on 5 L of oxygen which she states is his baseline however I am unsure that the patient is actually on oxygen at home. Patient's blood pressure is borderline. He was given a 500 bolus. Laboratory studies are conducted as well as a chest x-ray. Chest x-ray demonstrates pulmonary edema and therefore fluids are discontinued. He does have improvement in his blood pressure. He has normal mentation at this time and has not been anticoagulated and therefore I am apprehensive when it comes to cardioverting the patient. He is placed on an amiodarone drip with improvement in his heart rate. A dose of send who states the patient has no capacity to make his own decisions to leave. Patient is trying to actively leave therefore he is petitioned. Psychiatry is consulted once again as well as social work. Patient will be seen by cardiology remains with a guarded prognosis Undiagnosed new problem with uncertain prognosis? @ -No Drug Therapy requiring intensive monitoring for toxicity (Heparin, Nitro, Insulin, Cardizem)? @ -Heparin, amiodarone Were any procedures done? @ -No Diagnosis/symptom? @ -Acute dyspnea, A-fib with RVR, acute exacerbation of CHF Acute, or Chronic, or Acute on Chronic? @ -Acute on chronic Uncomplicated (without systemic symptoms) or Complicated (systemic symptoms)? @ -Complicated Side effects of treatment? @ -No Exacerbation, Progression, or Severe Exacerbation? @ -Yes Poses a threat to life or bodily function? How? (Chest pain, USA, AR, pneumonia, PE, COPD, DKA, ARF, appy, cholecystitis, CVA, Diverticulitis, Homicidal, Suicidal, threat to staff... and all critical care pts) @ -Yes this patient has markedly elevated heart rate - Lab Data Result diagrams: 06/02/25 13:14 06/02/25 13:14 Lab Results 06/02/25 06/02/25 06/02/25 Range/Units 13:14 13:14 13:14 WBC 7.57 (4.50-10.00) 10*3/uL RBC 4.74 (4.40-5.60) 10*6/uL Hgb 14.6 (13.0-17.0) g/dL Hct 44.1 (39.6-50.0) % MCV 93.0 (80.0-97.0) fL MCH 30.8 (27.0-32.0) pg MCHC 33.1 (32.0-37.0) g/dL Plt Count 238 (140-440) 10*3/uL MPV 9.5 (9.5-12.2) fL Immature Gran % (Auto) 0.1 % Neutrophils % 63.7 % Lymphocytes % 21.8 % Monocytes % 13.2 % Eosinophils % 0.9 % Basophils % 0.3 % Immature Gran # 0.01 (0.00-0.04) 10*3/uL Neutrophils # 4.82 (1.80-7.70) 10*3/uL Lymphocytes # 1.65 (0.90-5.00) 10*3/uL Monocytes # 1.00 (0.20-1.00) 10*3/uL Eosinophils # 0.07 (0.04-0.35) 10*3/uL Basophils # 0.02 (0.00-0.10) 10*3/uL PT 12.4 (10.0-12.5) sec INR 1.1 (<1.2) APTT 23.1 (22.0-30.0) sec Sodium 133 L (137-145) mmol/L Potassium 4.5 (3.5-5.1) mmol/L Chloride 89 L (98-107) mmol/L Carbon Dioxide 34 H (22-30) mmol/L Anion Gap 10 mmol/L BUN 37 H (9-20) mg/dL Creatinine 0.85 (0.66-1.25) mg/dL Est GFR (CKD-EPI)AfAm >90 (>60 ml/min/1.73 sqM) Est GFR (CKD-EPI)NonAf >90 (>60 ml/min/1.73 sqM) Glucose 124 H (74-99) mg/dL Plasma Lactic Acid Kevin (0.7-2.0) mmol/L Calcium 9.6 (8.4-10.2) mg/dL Total Bilirubin 1.2 (0.2-1.3) mg/dL AST 30 (17-59) U/L ALT 28 (4-49) U/L Alkaline Phosphatase 98 (38-126) U/L Troponin I (0.000-0.034) ng/mL NT-Pro-B Natriuret Pep 3010 pg/mL Total Protein 7.0 (6.3-8.2) g/dL Albumin 3.9 (3.5-5.0) g/dL 06/02/25 06/02/25 Range/Units 13:14 13:14 WBC (4.50-10.00) 10*3/uL RBC (4.40-5.60) 10*6/uL Hgb (13.0-17.0) g/dL Hct (39.6-50.0) % MCV (80.0-97.0) fL MCH (27.0-32.0) pg MCHC (32.0-37.0) g/dL Plt Count (140-440) 10*3/uL MPV (9.5-12.2) fL Immature Gran % (Auto) % Neutrophils % % Lymphocytes % % Monocytes % % Eosinophils % % Basophils % % Immature Gran # (0.00-0.04) 10*3/uL Neutrophils # (1.80-7.70) 10*3/uL Lymphocytes # (0.90-5.00) 10*3/uL Monocytes # (0.20-1.00) 10*3/uL Eosinophils # (0.04-0.35) 10*3/uL Basophils # (0.00-0.10) 10*3/uL PT (10.0-12.5) sec INR (<1.2) APTT (22.0-30.0) sec Sodium (137-145) mmol/L Potassium (3.5-5.1) mmol/L Chloride (98-107) mmol/L Carbon Dioxide (22-30) mmol/L Anion Gap mmol/L BUN (9-20) mg/dL Creatinine (0.66-1.25) mg/dL Est GFR (CKD-EPI)AfAm (>60 ml/min/1.73 sqM) Est GFR (CKD-EPI)NonAf (>60 ml/min/1.73 sqM) Glucose (74-99) mg/dL Plasma Lactic Acid Kevin 1.8 (0.7-2.0) mmol/L Calcium (8.4-10.2) mg/dL Total Bilirubin (0.2-1.3) mg/dL AST (17-59) U/L ALT (4-49) U/L Alkaline Phosphatase (38-126) U/L Troponin I 0.012 (0.000-0.034) ng/mL NT-Pro-B Natriuret Pep pg/mL Total Protein (6.3-8.2) g/dL Albumin (3.5-5.0) g/dL Disposition Clinical Impression: Atrial fibrillation with RVR, Shortness of breath, Acute heart failure Disposition: ADMITTED IP TO THIS [facility] Condition: Serious Is patient prescribed a controlled substance at d/c from ED?: No Time of Disposition: 16:03 Decision to Admit Reason: Admit from EC Decision Date: 06/02/25 Decision Time: 16:03
[2025-06-02] MEDS ORDERED: NALOXONE 0.4 MG/ML 1 ML VIAL IV PRN (16:03)
[2025-06-02] MEDS: HEPARIN SODIUM 1,000 UN/ML (10ML VL) IV ONE (17:24)
[2025-06-02] MEDS: HEPARIN SOD,PORK IN 0.45% NACL 25,000 UNIT in 0.45% NACL 1 250ML.BAG IV SCH (17:28)
[2025-06-02] MEDS: NICOTINE GUM (POLACRILEX) 2 MG GUM BUCCAL PRN (18:07)
[2025-06-02] MEDS: AMIODARONE 450 MG in DEXTROSE 5% IN WATER 250 ML IV SCH (20:19)
[2025-06-02] MEDS ORDERED: ALBUTEROL NEBULIZED 2.5 MG/3 ML INHALATION PRN (21:05)
[2025-06-02] MEDS: FUROSEMIDE 10 MG/ML 4 ML VIAL IV STA (21:55)
[2025-06-02] MEDS: HEPARIN SODIUM 1,000 UN/ML (10ML VL) IV PRN (23:29)
[2025-06-03 07:04] LABS: Basophils # (A) 0.00 10*3/uL (0.00-0.10); Basophils % (A) 0.0 %; Eosinophils # (A) 0.00 10*3/uL (0.04-0.35); Eosinophils % (A) 0.0 %; HCT 40.3 % (39.6-50.0); HGB 13.2 g/dL (13.0-17.0); Lymphocytes # (A) 0.69 10*3/uL (0.90-5.00); Lymphocytes % (A) 19.6 %; MCH 30.4 pg (27.0-32.0); MCHC 32.8 g/dL (32.0-37.0); MCV 92.9 fL (80.0-97.0); Monocytes # (A) 0.30 10*3/uL (0.20-1.00); Monocytes % (A) 8.5 %; Neutrophils # (A) 2.53 10*3/uL (1.80-7.70); Neutrophils % (A) 71.9 %; Platelet Count 188 10*3/uL (140-440); RBC 4.34 10*6/uL (4.40-5.60); RDW 13.9 % (11.5-14.5); WBC 3.52 10*3/uL (4.50-10.00)
[2025-06-03 07:20] LABS: African American GFR (CKD) >90 (>60 ml/min/1.73 sqM); Anion Gap 10 mmol/L; Blood Urea Nitrogen 31 mg/dL (9-20); Calcium 8.8 mg/dL (8.4-10.2); Carbon Dioxide 27 mmol/L (22-30); Chloride 97 mmol/L (98-107); Glucose 134 mg/dL (74-99); Non-African American GFR(CKD) >90 (>60 ml/min/1.73 sqM); Sodium 134 mmol/L (137-145)
[2025-06-03 07:21] LABS: INR 1.1 (<1.2); Partial Thromboplastin Time 32.7 sec (22.0-30.0); Prothrombin Time 12.4 sec (10.0-12.5)
[2025-06-03 07:37] LABS: Potassium 4.4 mmol/L (3.5-5.1)
[2025-06-03] MEDS: SYMBICORT 160-4.5 MCG INHALER INHALATION SCH (08:25)
[2025-06-03] MEDS: BUPRENORPHINE-NALOX 8-2 MG TAB 1 EACH TAB.SUBL SL SCH (09:19)
[2025-06-03] MEDS: METOPROLOL TARTRATE 50 MG TAB PO SCH (09:19)
[2025-06-03] MEDS: FUROSEMIDE 20 MG TAB PO SCH (09:19)
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
[2025-06-03 11:37] LABS: Glucose,Whole Blood 121 mg/dL (70-110)
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
[2025-06-03 16:50] LABS: Glucose,Whole Blood 83 mg/dL (70-110)
[2025-06-03] MEDS: RIVAROXABAN 20 MG TAB PO SCH (17:01)
--- NOTE | 2025-06-03 19:45 | HP ---
HISTORY AND PHYSICAL CHIEF COMPLAINT: Shortness of breath. HISTORY OF PRESENT ILLNESS: This is another admission for this debilitated 64-year-old, uncooperative white male. He just left the hospital against medical advice again. He is in and out of the hospitals frequently, coming in with complaints of shortness of breath and cellulitis of the legs. He was recently admitted here for acute respiratory failure in combination with acute congestive heart failure. He was treated and managed and seen by Psychiatry and it was recommended that he be assigned a guardian. While this was being arranged, he suddenly signed out against medical advice. He came to the office a day or 2 later and seemed to be doing fairly well. He is very noncompliant, does not take his medications as recommended and prescribed and he also is an analgesic abuser, both past and present and he has been on Suboxone. He came back to emergency room at this time in acute respiratory distress with atrial fibrillation and rapid ventricular response. He is hypotensive and hypoxic. He was treated and admitted. REVIEW OF SYSTEMS: At the present time, he has no complaints of chest pain, abdominal pain, etc. Past medical history, family history, personal and social histories are unchanged. He is not allergic to any medication. He is on Suboxone. Remainder of his history is unremarkable. PHYSICAL EXAMINATION: VITAL SIGNS: Pulse is 135, and he is extremely short of breath. HEAD, EARS, EYES, NOSE, MOUTH AND THROAT: Normal. CHEST: Demonstrates decreased breath sounds with scattered rales and expiratory wheezing throughout. CARDIAC: Reveals atrial fibrillation with a heart rate of around 140 beats per minute. ABDOMEN: Soft. There are no masses. EXTREMITIES: Reveal stasis dermatitis and cellulitis of the legs. NEUROLOGICAL: He is intact. ASSESSMENT: He was admitted to the hospital with diagnoses; 1. Acute respiratory failure. 2. Congestive heart failure. 3. Chronic obstructive pulmonary disease. 4. Atrial fibrillation with rapid ventricular response. 5. Cellulitis of lower extremities. 6. Chronic opioid abuse. PLAN: 1. Bedrest. 2. IV fluids. 3. Cardiology consult. 4. Control rhythm and rate. MMMINGOL / MARGEN: [id number] /
[2025-06-03 19:54] LABS: Glucose,Whole Blood 85 mg/dL (70-110)
--- NOTE | 2025-06-03 20:00 | PN ---
PROGRESS NOTE DATE OF SERVICE: 06/03/2025 CHIEF COMPLAINT: Acute respiratory failure, acute congestive heart failure and atrial fibrillation with RVR. HISTORY OF PRESENT ILLNESS: This gentleman is improved, slightly patent, but pulse is down. He is breathing a little bit more easily. PHYSICAL EXAMINATION: CHEST: He has increased AP diameter with poor breath sounds throughout. There are scattered rales and rhonchi and expiratory wheezing. CARDIAC: Still reveals tachycardia of around 100. IMPRESSION: 1. Acute respiratory failure. 2. Acute congestive heart failure. 3. Atrial fibrillation with RVR. PLAN: 1. Continue with current management with Cardiology in consult. 2. Nicorette gum. MMODL / IJN: [id number] /
[2025-06-04 06:03] LABS: Glucose,Whole Blood 90 mg/dL (70-110)
[2025-06-04 08:13] VITALS: RESP 16
[2025-06-04 10:33] VITALS: BP 119/76; PULSE 52; TEMP 98
--- NOTE | 2025-06-04 10:33 | P.PN ---
Subjective Progress Note Date: 06/04/25 Reason for Consult (text): Acute exacerbation of CHF, A-fib with RVR History of present illness: This is a 64-year-old male with past medical history of paroxysmal atrial fibrillation, AVNRT, chronic diastolic heart failure, COPD, tobacco use and dependence, history of polysubstance abuse, history of alcohol abuse, history of pulmonary emboli and DVT. We have been asked to evaluate the patient for acute exacerbation of heart failure and A-fib with RVR. Patient was recently hospitalized and seen by cardiology for AVNRT status post adenosine and A-fib with RVR. Patient ended up signing out AMA on 05/30. He had follow-up and was started on metoprolol from his PCP and he states he took a half a pill yesterday. He came into the hospital due to shortness of breath that came back after he left here. He states he is had wheezing and cough. He states he has had some palpitations over the past couple days. He denies fever. No history of blood in his stool or urine. No history of stroke or seizure. Patient is an active smoker. He drinks caffeine on a regular basis. He does have a history of alcohol abuse but last used prior to his recent hospitalization on 05/09. He denies any drug use. Patient has been started on amiodarone drip, heparin drip and is status post 1 dose of IV Lasix 40 mg. Patient is afebrile, blood pressure 104/76, heart rate 108-120, pulse ox 96% on 3 L nasal cannula. -EKG: Atrial fibrillation 173 bpm. Telemetry atrial flutter 120s. -Chest x-ray: Cardiomegaly, pulmonary vascular congestion, bilateral pleural effusions, COPD changes. -Laboratory studies: Troponin negative x 3. proBNP 3010, sodium 134, potassium 4.4, BUN 31, creatinine 0.71. WBC 3.5, hemoglobin 13.2. -Home cardiac medications: Lasix 80 mg daily, Toprol XL 50 mg daily, patient also on nicotine patch. -Echocardiogram performed on 05/10/2025 revealed EF 55 to 60%, mild MR and mild TR. 06/04/2025 Patient seen and examined. He has been in a sinus rhythm. He states his shortness of breath is better. He denies chest pain. Patient converted to a sinus rhythm around 8 PM and remains in a sinus rhythm this morning. Heart rate is in the 60s, blood pressure 101/64, pulse ox 92% on room air. Physical examination: Gen: This is a 64-year-old male in no acute distress VS: reviewed HEENT: Head is atraumatic, normocephalic. Pupils equal, round. Sclerae is anicteric. NECK: Supple. No JVD. LUNGS: Lung sounds with few scattered crackles. No intercostal retractions. HEART: Regular regular rate and rhythm. No murmur. ABDOMEN: Soft No tenderness. EXTREMITIES: No pedal edema. No calf tenderness. NEUROLOGICAL: Patient is awake, alert and oriented x3. Assessment: Paroxysmal atrial fibrillation with RVR, converted to sinus rhythm Acute on chronic diastolic heart failure, currently stable COPD exacerbation AVNRT Noncompliance Tobacco use and dependence History of polysubstance abuse History of alcohol abuse History of pulmonary emboli and DVT Plan: Continue patient on metoprolol tartrate 50 mg 3 times daily and Xarelto 20 mg daily Continue Lasix oral 20 mg daily No need to repeat echocardiogram as this was done in April Further recommendations to follow based upon clinical course Nurse practitioner note has been reviewed, I agree with documented findings and plan of care. Patient was seen and examined. Objective - Vital Signs Vital signs: Vital Signs Temp 97.9 F 06/04/25 04:00 Pulse 71 06/04/25 04:00 Resp 20 06/04/25 04:00 BP 97/69 06/04/25 04:00 Pulse Ox 92 L 06/04/25 04:00 FiO2 Intake & Output 06/03/25 06/04/25 06/04/25 18:59 06:59 18:59 Intake Total 49.98 240 Output Total 225 300 Balance -175.02 -60 Weight 57.2 kg Intake: Intake, IV Titration 49.98 Amount Amiodarone 450 mg In 49.98 Dextrose 5% in Water 250 ml @ 0.5 MG/MIN 16.667 mls/hr IV .Q15H [facility] Rx#: [id number] Oral 240 Output: Urine 225 300 Other: Voiding Method Urinal - Labs CBC & Chem 7: 06/03/25 05:47 06/03/25 05:47 Labs: Abnormal Lab Results - Last 24 Hours (Table) 07/17/25 Range/Units 11:36 POC Glucose (mg/dL) 121 H (70-110) mg/dL
--- NOTE | 2025-06-07 09:18 | DS ---
DISCHARGE SUMMARY CHIEF COMPLAINT: Exacerbation of COPD and congestive heart failure. HISTORY OF PRESENT ILLNESS AND PHYSICAL EXAMINATION: Details of this man's history and physical can be found in the initial workup. LABORATORY STUDIES: While he was in the hospital, he had laboratory studies, details of which can be found in the laboratory section of his chart. COURSE IN THE HOSPITAL: After admission, he was placed on bedrest, started on intravenous fluids and given diuretics and started on updrafts. Breathing seemed to improve and he was doing better. It was felt that he could probably be discharged, but then he signed himself out AMA before this could be put in place. FINAL DIAGNOSES: 1. Exacerbation of chronic obstructive pulmonary disease. 2. Acute congestive heart failure. 3. History of substance abuse. 4. Stasis disease of lower extremities. 5. Atrial fibrillation. 6. Prerenal azotemia. OPERATIONS: None. CONSULTATIONS: None. AMAIRANI / ELAINE: [id number] /
== END 2025-06-04 12:01 | disposition left against medical advice (07) | DRG 291 ==
LOC: EC 12:51 → 3SCARD 16:07
PROVIDERS: ADMIT Family Medicine; ATTEND Family Medicine
DX: I11.0 Hypertensive heart disease with heart failure (principal); I50.33 Acute on chronic diastolic (congestive) heart failure; J96.01 Acute respiratory failure with hypoxia; L03.115 Cellulitis of right lower limb; I47.19 Other supraventricular tachycardia; I48.92 Unspecified atrial flutter; J44.1 Chronic obstructive pulmonary disease with (acute) exacerbation; I95.9 Hypotension, unspecified; F11.20 Opioid dependence, uncomplicated; F20.9 Schizophrenia, unspecified; E11.9 Type 2 diabetes mellitus without complications; F32.A Depression, unspecified; F10.11 Alcohol abuse, in remission; L03.116 Cellulitis of left lower limb; I48.0 Paroxysmal atrial fibrillation; F19.11 Other psychoactive substance abuse, in remission; I87.2 Venous insufficiency (chronic) (peripheral); F17.210 Nicotine dependence, cigarettes, uncomplicated; F41.9 Anxiety disorder, unspecified; Z91.148 Patient's other noncompliance with medication regimen for other reason; Z53.29 Procedure and treatment not carried out because of patient's decision for other reasons; Z79.51 Long term (current) use of inhaled steroids; Z79.1 Long term (current) use of non-steroidal anti-inflammatories (NSAID); Z79.899 Other long term (current) drug therapy; Z86.711 Personal history of pulmonary embolism; Z86.718 Personal history of other venous thrombosis and embolism
CPT/HCPCS: 36415; 71045; 80048; 80053; 83605; 83880; 84484; 85025; 85610; 85730; 93005; 94640; 96365; 96366; 96368; 96375; 99291

== ENCOUNTER 2025-06-06 23:52 | Emergency (ER) | payer OTHER ==
[2025-06-07 00:07] VITALS: TEMP 98.2
[2025-06-07] MEDS: ADENOSINE 3 MG/ML 2 ML VIAL IVP STA ×3 (00:10→00:35)
[2025-06-07] MEDS: SODIUM CHLORIDE 0.9% 500 ML 500 ML IV STA (00:25)
--- NOTE | 2025-06-07 00:29 | ED ---
Arrhythmia/Palpitations HPI - General Chief Complaint: Arrhythmia/Palpitations Stated Complaint: SVT Time Seen by Provider: 06/06/25 23:56 Source: patient, EMS Mode of arrival: EMS - History of Present Illness Initial Comments: This patient is a 64-year-old man brought by ambulance to have evaluation for rapid heartbeat. The patient states that he had gone for a bike ride tonight and then became so short of breath that he was not able to continue. He also experienced dry heaves when the symptoms started. The patient states that he has previous history of atrial fibrillation and having to have IV antiarrhythmics. He had been admitted in April and then again 4 days ago. MD Complaint: rapid heart beat Onset/Timin -: hour(s) Context: occurred during exertion Arrhythmia History: atrial fibrillation Associated Symptoms: shortness of breath, nausea/vomiting - Related Data Home Medications Medication Instructions Recorded Confirmed Albuterol Inhaler [Ventolin Hfa 2 puff INHALATION RT-Q6H PRN 05/09/25 06/02/25 Inhaler] Albuterol Nebulized [Ventolin 2.5 mg INHALATION RT-QID PRN 05/09/25 06/02/25 Nebulized] Budesonide-Formot 160-4.5 Mcg 2 puff INHALATION RT-BID 05/09/25 06/02/25 [Symbicort 160-4.5 Mcg Inhaler] Buprenorphine HCl/Naloxone HCl 1 film SL BID 05/09/25 06/02/25 [Suboxone 8 mg-2 mg Sl Film] Furosemide [Lasix] 80 mg PO DAILY 05/09/25 06/02/25 Meloxicam [Mobic] 15 mg PO DAILY 05/09/25 06/02/25 Multivitamins, Thera [Multivitamin 1 tab PO DAILY 05/09/25 06/02/25 (formulary)] Mupirocin 2% Oint [Bactroban 2% 1 applic TOPICAL TID 05/09/25 06/02/25 Oint] Nicotine 21Mg/24Hr Patch [Habitrol] 1 patch TRANSDERM DAILY PRN 05/09/25 Metoprolol Succinate (ER) [Toprol 50 mg PO DAILY 06/02/25 06/02/25 Xl] Previous Rx's Medication Instructions Recorded Azithromycin [Zithromax] 0 mg PO DIRECTED #6 tab 06/07/25 Cephalexin [Keflex] 500 mg PO Q6HR 7 Days #28 cap 06/15/25 Allergies Allergy/AdvReac Type Severity Reaction Status Date / Time No Known Allergies Allergy Verified 06/07/25 00:07 Review of Systems ROS Statement: Those systems with pertinent positive or pertinent negative responses have been documented in the HPI. ROS Other: All systems not noted in ROS Statement are negative. Constitutional: Reports: weakness. Denies: fever, chills Eyes: Denies: vision change Respiratory: Reports: dyspnea. Denies: cough Cardiovascular: Reports: palpitations. Denies: chest pain, edema, syncope Gastrointestinal: Reports: nausea. Denies: abdominal pain, vomiting, diarrhea, hematemesis, melena, hematochezia Genitourinary: Denies: dysuria, hematuria Musculoskeletal: Denies: back pain Skin: Denies: rash Neurological: Denies: headache, weakness, numbness Past Medical History Past Medical History: COPD, Diabetes Mellitus, Deep Vein Thrombosis (DVT), Hypertension, Musculoskeletal Disorder, Pneumonia, Pulmonary Embolus (PE) Additional Past Medical History / Comment(s): "broken back 01/06/19", "heart arrhythmia's," DVT right leg, PE History of Any Multi-Drug Resistant Organisms: None Reported Past Surgical History: Orthopedic Surgery Additional Past Surgical History / Comment(s): left clavicle, jaw, lt leg Past Anesthesia/Blood Transfusion Reactions: No Reported Reaction Past Psychological History: Anxiety, Depression, Schizophrenia Smoking Status: Former smoker Past Alcohol Use History: None Reported, Abuse, Daily, Heavy Past Drug Use History: None Reported - Past Family History Sister(s) Family Medical History: Cancer Additional Family Medical History / Comment(s): 2 sisters from cancer Mother Family Medical History: Coronary Artery Disease (CAD) Father Additional Family Medical History / Comment(s): Alcoholic General Exam General appearance: alert, in no apparent distress Head exam: Present: atraumatic, normocephalic Eye exam: Present: normal appearance. Absent: scleral icterus, conjunctival injection Respiratory exam: Present: normal lung sounds bilaterally. Absent: respiratory distress, wheezes, rales, rhonchi, stridor, accessory muscle use Cardiovascular Exam: Present: tachycardia. Absent: systolic murmur, diastolic murmur, rubs, gallop GI/Abdominal exam: Present: soft. Absent: distended, tenderness, guarding, rebound, rigid, mass Extremities exam: Present: normal inspection, normal capillary refill. Absent: pedal edema, calf tenderness Back exam: Present: normal inspection. Absent: CVA tenderness (R), CVA tenderness (L) Neurological exam: Present: alert Skin exam: Present: warm, dry, normal color, other (Proximately 2 cm laceration left pretibial area) Course Vital Signs 06/06/25 06/07/25 06/07/25 23:58 00:21 01:18 Temperature 98.2 F Pulse Rate 197 H 189 H 79 Respiratory 18 22 18 Rate Blood Pressure 89/79 105/80 O2 Sat by Pulse 96 92 L 96 Oximetry 06/07/25 06/07/25 03:15 04:30 Temperature Pulse Rate 68 69 Respiratory 16 16 Rate Blood Pressure 127/94 125/90 O2 Sat by Pulse 98 96 Oximetry EKG Findings - EKG Results: EKG: interpreted by ERMD - Blocks, Arnot, Hypertrophy, ST Abn: AV and intraventricular conduction: intraventricular conduction delay QRS axis and voltage: right axis deviation (+90 to +180) (Borderline right axis) Repolarization changes or abnormalities: nonspecific abnormality, ST segment, and/or T wave Medical Decision Making - Medical Decision Making The patient had chest x-ray that I interpreted as showing probable left lower lobe infiltrate. Was pt. sent in by a medical professional or institution (MATT Vasquez, BEATER OPERATOR, urgent care, hospital, or group home...) When possible be specific @ -[No] Did you speak to anyone other than the patient for history (EMS, parent, family, police, friend...)? What history was obtained from this source @ -[No] Did you review nursing and triage notes (agree or disagree)? Why? @ -[I reviewed and agree with nursing and triage notes] Were old charts reviewed (outside hosp., previous admission, EMS record, old EKG, old radiological studies, urgent care reports/EKG's, group home records)? Report findings @ -[Yes, old charts were reviewed Differential Diagnosis (chest pain, altered mental status, abdominal pain women, abdominal pain men, vaginal bleeding, weakness, fever, dyspnea, syncope, headache, dizziness, GI bleed, back pain, seizure, CVA, palpatations, mental health, musculoskeletal)? @ -[Differential Palpitations Ventricular arrhythmias, atrial arrhythmias, myocardial infarction, anemia, thyrotoxicosis, electrolyte imbalance, hypokalemia, pulmonary embolism, pulmonary disease, drugs, alcohol, anxiety, stress.... This is not meant to be an all-inclusive list. Differential Dyspnea: Coronary syndrome, arrhythmia, tamponade, asthma, COPD, pulmonary embolism, pneumonia, pneumothorax, pulmonary effusion, anaphylaxis, diabetic ketoacidosis, flailed chest, pulmonary contusion, diaphragmatic rupture, anemia, neuromuscular, this is not meant to be an all-inclusive list. EKG interpreted by me (3pts min.). @ -[I interpreted as above X-rays interpreted by me (1pt min.). @ -[I interpreted as above CT interpreted by me (1pt min.). @ -[None done] U/S interpreted by me (1pt. min.). @ -[None done] What testing was considered but not performed or refused? (CT, X-rays, U/S, labs)? Why? @ -[None] What meds were considered but not given or refused? Why? @ -[None] Did you discuss the management of the patient with other professionals (professionals i.e. , PA, BEATER OPERATOR, lab, RT, psych nurse, social services assistant, technical training instructor, teacher, loan review officer, egg caser)? Give summary @ -[No] Was smoking cessation discussed for >3mins.? @ -[No] Was critical care preformed (if so, how long)? @ -Yes, 30 minutes Were there social determinants of health that impacted care today? How? (Homelessness, low income, unemployed, alcoholism, drug addiction, transportation, low edu. Level, literacy, decrease access to med. care, fdc, rehab)? @ -[No] Was there de-escalation of care discussed even if they declined (Discuss DNR or withdrawal of care, Hospice)? DNR status @ -[No] What co-morbidities impacted this encounter? (DM, HTN, Smoking, COPD, CAD, Cancer, CVA, ARF, Chemo, Hep., AIDS, mental health diagnosis, sleep apnea, morbid obesity)? @ -[COPD, smoking history, hypertension, history of substance abuse Was patient admitted / discharged? Hospital course, mention meds given and route, prescriptions, significant lab abnormalities, going to OR and other pertinent info. @ -[Patient is 64-year-old man here for dyspnea, found to have suspected pneumonia. Patient also with SVT that did resolve with medication. I did recommend admission to the patient but he is declining. He states he will follow-up with his primary physician on the following day. He states that he has had pneumonia previously and has felt worse than this. He does agree to return if his breathing should worsen or any new symptoms develop. Undiagnosed new problem with uncertain prognosis? @ -[No] Drug Therapy requiring intensive monitoring for toxicity (Heparin, Nitro, Insulin, Cardizem)? @ -[No] Were any procedures done? @ -[No] Diagnosis/symptom? @ -[Acute SVT Acute pneumonia Acute, or Chronic, or Acute on Chronic? @ -[Acute Uncomplicated (without systemic symptoms) or Complicated (systemic symptoms)? @ -[Complicated by dyspnea Side effects of treatment? @ -[No] Exacerbation, Progression, or Severe Exacerbation? @ -[No] Poses a threat to life or bodily function? How? (Chest pain, USA, MS, pneumonia, PE, COPD, DKA, ARF, appy, cholecystitis, CVA, Diverticulitis, Homicidal, Suicidal, threat to staff... and all critical care pts) @ -[Yes, requires close follow-up All treatments are based on ideal body weight as in ED triage - Lab Data Result diagrams: 06/07/25 01:53 06/07/25 01:53 Lab Results 06/07/25 06/07/25 06/07/25 Range/Units 01:53 01:53 03:40 WBC 12.50 H (4.50-10.00) 10*3/uL RBC 4.39 L (4.40-5.60) 10*6/uL Hgb 13.2 (13.0-17.0) g/dL Hct 41.1 (39.6-50.0) % MCV 93.6 (80.0-97.0) fL MCH 30.1 (27.0-32.0) pg MCHC 32.1 (32.0-37.0) g/dL Plt Count 140 (140-440) 10*3/uL MPV 10.2 (9.5-12.2) fL Immature Gran % (Auto) 0.6 % Neutrophils % 86.6 % Lymphocytes % 5.0 % Monocytes % 7.6 % Eosinophils % 0.0 % Basophils % 0.2 % Immature Gran # 0.08 H (0.00-0.04) 10*3/uL Neutrophils # 10.82 H (1.80-7.70) 10*3/uL Lymphocytes # 0.63 L (0.90-5.00) 10*3/uL Monocytes # 0.95 (0.20-1.00) 10*3/uL Eosinophils # 0.00 L (0.04-0.35) 10*3/uL Basophils # 0.02 (0.00-0.10) 10*3/uL PT 13.9 H (10.0-12.5) sec INR 1.3 H (<1.2) APTT 24.1 (22.0-30.0) sec Sodium 134 L (137-145) mmol/L Potassium 4.1 (3.5-5.1) mmol/L Chloride 96 L (98-107) mmol/L Carbon Dioxide 25 (22-30) mmol/L Anion Gap 13 mmol/L BUN 20 (9-20) mg/dL Creatinine 1.01 (0.66-1.25) mg/dL Est GFR (CKD-EPI)AfAm >90 (>60 ml/min/1.73 sqM) Est GFR (CKD-EPI)NonAf 80 (>60 ml/min/1.73 sqM) Glucose 138 H (74-99) mg/dL Calcium 8.9 (8.4-10.2) mg/dL Magnesium 1.7 (1.6-2.3) mg/dL Total Bilirubin 1.3 (0.2-1.3) mg/dL AST 148 H (17-59) U/L ALT 109 H (4-49) U/L Alkaline Phosphatase 77 (38-126) U/L Troponin I (0.000-0.034) ng/mL Total Protein 5.9 L (6.3-8.2) g/dL Albumin 3.2 L (3.5-5.0) g/dL 06/07/25 Range/Units 03:40 WBC (4.50-10.00) 10*3/uL RBC (4.40-5.60) 10*6/uL Hgb (13.0-17.0) g/dL Hct (39.6-50.0) % MCV (80.0-97.0) fL MCH (27.0-32.0) pg MCHC (32.0-37.0) g/dL Plt Count (140-440) 10*3/uL MPV (9.5-12.2) fL Immature Gran % (Auto) % Neutrophils % % Lymphocytes % % Monocytes % % Eosinophils % % Basophils % % Immature Gran # (0.00-0.04) 10*3/uL Neutrophils # (1.80-7.70) 10*3/uL Lymphocytes # (0.90-5.00) 10*3/uL Monocytes # (0.20-1.00) 10*3/uL Eosinophils # (0.04-0.35) 10*3/uL Basophils # (0.00-0.10) 10*3/uL PT (10.0-12.5) sec INR (<1.2) APTT (22.0-30.0) sec Sodium (137-145) mmol/L Potassium (3.5-5.1) mmol/L Chloride (98-107) mmol/L Carbon Dioxide (22-30) mmol/L Anion Gap mmol/L BUN (9-20) mg/dL Creatinine (0.66-1.25) mg/dL Est GFR (CKD-EPI)AfAm (>60 ml/min/1.73 sqM) Est GFR (CKD-EPI)NonAf (>60 ml/min/1.73 sqM) Glucose (74-99) mg/dL Calcium (8.4-10.2) mg/dL Magnesium (1.6-2.3) mg/dL Total Bilirubin (0.2-1.3) mg/dL AST (17-59) U/L ALT (4-49) U/L Alkaline Phosphatase (38-126) U/L Troponin I 0.018 (0.000-0.034) ng/mL Total Protein (6.3-8.2) g/dL Albumin (3.5-5.0) g/dL Disposition Clinical Impression: SVT (supraventricular tachycardia), Pneumonia Disposition: HOME SELF-CARE Condition: Good Instructions (If sedation given, give patient instructions): Supraventricular Tachycardia (ED), Pneumonia (ED) Prescriptions: Azithromycin [Zithromax] 0 mg PO DIRECTED #6 tab Is patient prescribed a controlled substance at d/c from ED?: No Referrals: Lam Velazquez MD [Primary Care Provider] - 1-2 days
[2025-06-07] MEDS: DILTIAZEM 5 MG/ML 5 ML VIAL IVP STA (01:03)
--- NOTE | 2025-06-07 02:14 | XR ---
EXAM: XR Chest, 1 View CLINICAL HISTORY: ITS.REASON XR Reason: dysrhythmia TECHNIQUE: Frontal view of the chest. COMPARISON: 06/02/2025 FINDINGS: Limitations: Patient's head projects over the upper lung arauz. Lungs: Left basilar airspace opacity, increased from prior. Right lung appears clear. Pleural space: No significant pleural effusion. No pneumothorax. Heart: No cardiomegaly or pulmonary vascular congestion. Bones/joints: [id number] fixation of the left clavicle. Limited skeletal evaluation. No acute osseous findings as visualized. Fixation plate suggested in the left mandible. IMPRESSION: Left basilar airspace opacity, increased from prior. Appearance raises concern for pneumonia.
[2025-06-07 02:34] LABS: Basophils # (A) 0.02 10*3/uL (0.00-0.10); Basophils % (A) 0.2 %; Eosinophils # (A) 0.00 10*3/uL (0.04-0.35); Eosinophils % (A) 0.0 %; HCT 41.1 % (39.6-50.0); HGB 13.2 g/dL (13.0-17.0); Lymphocytes # (A) 0.63 10*3/uL (0.90-5.00); Lymphocytes % (A) 5.0 %; MCH 30.1 pg (27.0-32.0); MCHC 32.1 g/dL (32.0-37.0); MCV 93.6 fL (80.0-97.0); Monocytes # (A) 0.95 10*3/uL (0.20-1.00); Monocytes % (A) 7.6 %; Neutrophils # (A) 10.82 10*3/uL (1.80-7.70); Neutrophils % (A) 86.6 %; Platelet Count 140 10*3/uL (140-440); RBC 4.39 10*6/uL (4.40-5.60); RDW 14.7 % (11.5-14.5); WBC 12.50 10*3/uL (4.50-10.00)
[2025-06-07 02:57] LABS: ALT 109 U/L (4-49); AST 148 U/L (17-59); African American GFR (CKD) >90 (>60 ml/min/1.73 sqM); Albumin 3.2 g/dL (3.5-5.0); Alkaline Phosphatase 77 U/L (38-126); Anion Gap 13 mmol/L; Blood Urea Nitrogen 20 mg/dL (9-20); Calcium 8.9 mg/dL (8.4-10.2); Carbon Dioxide 25 mmol/L (22-30); Chloride 96 mmol/L (98-107); Glucose 138 mg/dL (74-99); Magnesium 1.7 mg/dL (1.6-2.3); Non-African American GFR(CKD) 80 (>60 ml/min/1.73 sqM); Sodium 134 mmol/L (137-145); Total Protein 5.9 g/dL (6.3-8.2)
[2025-06-07 03:09] LABS: Potassium 4.1 mmol/L (3.5-5.1)
[2025-06-07 04:26] LABS: INR 1.3 (<1.2); Partial Thromboplastin Time 24.1 sec (22.0-30.0); Prothrombin Time 13.9 sec (10.0-12.5)
[2025-06-07 05:06] VITALS: RESP 16
[2025-06-07 05:07] VITALS: BP 125/90; PULSE 69
[2025-06-07] MEDS: cefTRIAXone IN SWFI 1,000 MG/10 ML SYRINGE IVP STA (05:25)
[2025-06-07] MEDS: AZITHROMYCIN 500 MG TAB PO STA (05:25)
[2025-06-07] MEDS: LIDOCAINE 1% INJ 10MG/ML (20 ML MDV) SQ STA (06:18)
== END 2025-06-07 06:19 | disposition home or self-care (01) ==
LOC: EC 23:52
DX: I47.10 Supraventricular tachycardia, unspecified (principal); J18.9 Pneumonia, unspecified organism; Z87.891 Personal history of nicotine dependence
CPT/HCPCS: 36415; 93005; 80053; 83735; 84484; 85025; 85610; 85730; 71045; 99285; 96374; 96375; J2003; J0696; J0153; J1163

== ENCOUNTER 2025-06-08 23:32 | Emergency (ER) | payer OTHER ==
[2025-06-08 23:46] VITALS: BP 106/77; PULSE 94; RESP 18; TEMP 98.3
--- NOTE | 2025-06-09 00:15 | ED ---
General Adult HPI - General Chief complaint: Shortness of Breath Stated complaint: PHILIPPE Time Seen by Provider: 06/08/25 23:48 Source: patient, EMS, RN notes reviewed Mode of arrival: EMS Limitations: no limitations - History of Present Illness Initial comments: 64-year-old male presents to the emergency department for evaluation of coughing and shortness of breath. According to EMS patient was found bent over working on his bicycle and coughing excessively. The patient reports that he was recently told that he had a broken rib and pneumonia. He states that he has been taking antibiotics. - Related Data Home Medications Medication Instructions Recorded Confirmed Albuterol Inhaler [Ventolin Hfa 2 puff INHALATION RT-Q6H PRN 05/09/25 06/02/25 Inhaler] Albuterol Nebulized [Ventolin 2.5 mg INHALATION RT-QID PRN 05/09/25 06/02/25 Nebulized] Budesonide-Formot 160-4.5 Mcg 2 puff INHALATION RT-BID 05/09/25 06/02/25 [Symbicort 160-4.5 Mcg Inhaler] Buprenorphine HCl/Naloxone HCl 1 film SL BID 05/09/25 06/02/25 [Suboxone 8 mg-2 mg Sl Film] Furosemide [Lasix] 80 mg PO DAILY 05/09/25 06/02/25 Meloxicam [Mobic] 15 mg PO DAILY 05/09/25 06/02/25 Multivitamins, Thera [Multivitamin 1 tab PO DAILY 05/09/25 06/02/25 (formulary)] Mupirocin 2% Oint [Bactroban 2% 1 applic TOPICAL TID 05/09/25 06/02/25 Oint] Nicotine 21Mg/24Hr Patch [Habitrol] 1 patch TRANSDERM DAILY PRN 05/09/25 06/02/25 Metoprolol Succinate (ER) [Toprol 50 mg PO DAILY 06/02/25 06/02/25 Xl] Previous Rx's Medication Instructions Recorded Azithromycin [Zithromax] 0 mg PO DIRECTED #6 tab 06/07/25 Cephalexin [Keflex] 500 mg PO Q6HR 7 Days #28 cap 06/15/25 Allergies Allergy/AdvReac Type Severity Reaction Status Date / Time No Known Allergies Allergy Verified 06/07/25 00:07 Review of Systems ROS Statement: Those systems with pertinent positive or pertinent negative responses have been documented in the HPI. ROS Other: All systems not noted in ROS Statement are negative. Past Medical History Past Medical History: COPD, Diabetes Mellitus, Deep Vein Thrombosis (DVT), Hypertension, Musculoskeletal Disorder, Pneumonia, Pulmonary Embolus (PE) Additional Past Medical History / Comment(s): "broken back 01/06/19", "heart arrhythmia's," DVT right leg, PE History of Any Multi-Drug Resistant Organisms: None Reported Past Surgical History: Orthopedic Surgery Additional Past Surgical History / Comment(s): left clavicle, jaw, lt leg Past Anesthesia/Blood Transfusion Reactions: No Reported Reaction Past Psychological History: Anxiety, Depression, Schizophrenia Smoking Status: Current every day smoker Past Alcohol Use History: None Reported, Abuse Past Drug Use History: None Reported - Past Family History Sister(s) Family Medical History: Cancer Additional Family Medical History / Comment(s): 2 sisters from cancer Mother Family Medical History: Coronary Artery Disease (CAD) Father Additional Family Medical History / Comment(s): Alcoholic General Exam Limitations: no limitations General appearance: alert, in no apparent distress Head exam: Present: atraumatic, normocephalic, normal inspection Eye exam: Present: normal appearance, PERRL, EOMI. Absent: scleral icterus, conjunctival injection, periorbital swelling ENT exam: Present: normal exam, mucous membranes moist Neck exam: Present: normal inspection. Absent: tenderness, meningismus, lymphadenopathy Respiratory exam: Present: rhonchi, chest wall tenderness. Absent: respiratory distress, wheezes, rales, stridor Cardiovascular Exam: Present: regular rate, normal rhythm, normal heart sounds. Absent: systolic murmur, diastolic murmur, rubs, gallop, clicks GI/Abdominal exam: Present: soft. Absent: distended, tenderness, guarding, rebound, rigid Extremities exam: Present: full ROM, normal capillary refill, other (Skin tear to the left briones, previously repaired). Absent: tenderness, pedal edema, joint swelling, calf tenderness Neurological exam: Present: alert, oriented X3 Psychiatric exam: Present: normal affect, normal mood Skin exam: Present: warm, dry. Absent: intact Course Vital Signs 06/08/25 06/08/25 06/09/25 23:39 23:46 02:46 Temperature 98.3 F Pulse Rate 94 Respiratory 18 18 Rate Blood Pressure 106/77 O2 Sat by Pulse 85 L 80 L Oximetry Medical Decision Making - Medical Decision Making Was pt. sent in by a medical professional or institution (MATT Vasquez, HOSPITAL NURSE LIAISON, urgent care, hospital, or assisted...) When possible be specific @ -No Did you speak to anyone other than the patient for history (EMS, parent, family, police, friend...)? What history was obtained from this source @ -No Did you review nursing and triage notes (agree or disagree)? Why? @ -I reviewed and agree with nursing and triage notes Were old charts reviewed (outside hosp., previous admission, EMS record, old EKG, old radiological studies, urgent care reports/EKG's, assisted records)? Report findings @ -No old charts were reviewed Differential Diagnosis (chest pain, altered mental status, abdominal pain women, abdominal pain men, vaginal bleeding, weakness, fever, dyspnea, syncope, headache, dizziness, GI bleed, back pain, seizure, CVA, palpatations, mental health, musculoskeletal)? @ -Differential Dyspnea: Coronary syndrome, arrhythmia, tamponade, asthma, COPD, pulmonary embolism, p neumonia, pneumothorax, pulmonary effusion, anaphylaxis, diabetic ketoacidosis, flailed chest, pulmonary contusion, diaphragmatic rupture, anemia, neuromuscular, this is not meant to be an all-inclusive list. EKG interpreted by me (3pts min.). @ -EKG at 2357 reveals sinus rhythm with occasional PACs rate of 88, IN 169, QRS 95, QT/QTc [id number] X-rays interpreted by me (1pt min.). @ -Chest x-ray reveals left lower lobe pneumonia CT interpreted by me (1pt min.). @ -None done U/S interpreted by me (1pt. min.). @ -None done What testing was considered but not performed or refused? (CT, X-rays, U/S, labs)? Why? @ -None What meds were considered but not given or refused? Why? @ -None Did you discuss the management of the patient with other professionals (professionals i.e. MATT Vasquez, HOSPITAL NURSE LIAISON, lab, RT, psych nurse, geriatric social worker, professional architect, teacher, correctional officer captain, nurse case management)? Give summary @ -No Was smoking cessation discussed for >3mins.? @ -No Was critical care preformed (if so, how long)? @ -No Were there social determinants of health that impacted care today? How? (Homelessness, low income, unemployed, alcoholism, drug addiction, transportation, low edu. Level, literacy, decrease access to med. care, custodial, rehab)? @ -No Was there de-escalation of care discussed even if they declined (Discuss DNR or withdrawal of care, Hospice)? DNR status @ -No What co-morbidities impacted this encounter? (DM, HTN, Smoking, COPD, CAD, Cancer, CVA, ARF, Chemo, Hep., AIDS, mental health diagnosis, sleep apnea, morbid obesity)? @ -COPD this man was crazy Was patient admitted / discharged? Hospital course, mention meds given and route, prescriptions, significant lab abnormalities, going to OR and other pertinent info. @ -Patient left AGAINST MEDICAL ADVICE.Patient presented to the emergency department for medical evaluation. Patient found to be hypoxic. Placed on O2 and traffic monitor specialist in the emergency department. Laboratory studies were obtained revealed leukocytosis at 12.8, hemoglobin 12.1; INR is 1.2. Bicarb is 31. Magnesium is low at 1.4. BNP is 727 a chest x-ray was obtained which revealed a left lower lobe pneumonia which has not improved from prior. Patient does note that he has been taking his oral antibiotics. I advised the patient that he should be admitted to the hospital for IV antibiotics. IV antibiotics were ordered but the patient refused. Patient refused admission although he was advised that his oxygen is significantly low in the high 70s to low 80s. Patient continued to refuse admission to the hospital. He wished to leave AGAINST MEDICAL ADVICE. I did discuss the risks of this including the risk of if he left without medical treatment. He is understanding of this. Case discussed with Dr. Che. Undiagnosed new problem with uncertain prognosis? @ -No Drug Therapy requiring intensive monitoring for toxicity (Heparin, Nitro, Insulin, Cardizem)? @ -No Were any procedures done? @ -No Diagnosis/symptom? @ -Hypoxia, left AGAINST MEDICAL ADVICE Acute, or Chronic, or Acute on Chronic? @ -Acute Uncomplicated (without systemic symptoms) or Complicated (systemic symptoms)? @ -Complicated Side effects of treatment? @ -No Exacerbation, Progression, or Severe Exacerbation? @ -No Poses a threat to life or bodily function? How? (Chest pain, USA, MD, pneumonia, PE, COPD, DKA, ARF, appy, cholecystitis, CVA, Diverticulitis, Homicidal, Suicidal, threat to staff... and all critical care pts) @ -yes patient hypoxic bilateral - Lab Data Result diagrams: 06/08/25 23:51 06/08/25 23:51 Lab Results 06/08/25 06/08/25 06/08/25 Range/Units 23:51 23:51 23:51 WBC 12.83 H (4.50-10.00) 10*3/uL RBC 3.89 L (4.40-5.60) 10*6/uL Hgb 12.1 L (13.0-17.0) g/dL Hct 36.3 L (39.6-50.0) % MCV 93.3 (80.0-97.0) fL MCH 31.1 (27.0-32.0) pg MCHC 33.3 (32.0-37.0) g/dL Plt Count 222 (140-440) 10*3/uL MPV 9.8 (9.5-12.2) fL Immature Gran % (Auto) 0.3 % Neutrophils % 79.7 % Lymphocytes % 10.1 % Monocytes % 9.5 % Eosinophils % 0.2 % Basophils % 0.2 % Immature Gran # 0.04 (0.00-0.04) 10*3/uL Neutrophils # 10.21 H (1.80-7.70) 10*3/uL Lymphocytes # 1.30 (0.90-5.00) 10*3/uL Monocytes # 1.22 H (0.20-1.00) 10*3/uL Eosinophils # 0.03 L (0.04-0.35) 10*3/uL Basophils # 0.03 (0.00-0.10) 10*3/uL PT 12.8 H (10.0-12.5) sec INR 1.2 H (<1.2) APTT 26.0 (22.0-30.0) sec Sodium 132 L (137-145) mmol/L Potassium 4.2 (3.5-5.1) mmol/L Chloride 93 L (98-107) mmol/L Carbon Dioxide 31 H (22-30) mmol/L Anion Gap 8 mmol/L BUN 22 H (9-20) mg/dL Creatinine 0.73 (0.66-1.25) mg/dL Est GFR (CKD-EPI)AfAm >90 (>60 ml/min/1.73 sqM) Est GFR (CKD-EPI)NonAf >90 (>60 ml/min/1.73 sqM) Glucose 147 H (74-99) mg/dL Plasma Lactic Acid Kevin (0.7-2.0) mmol/L Calcium 9.5 (8.4-10.2) mg/dL Magnesium 1.4 L (1.6-2.3) mg/dL Total Bilirubin 0.8 (0.2-1.3) mg/dL AST 42 (17-59) U/L ALT 80 H (4-49) U/L Alkaline Phosphatase 89 (38-126) U/L NT-Pro-B Natriuret Pep 727 pg/mL Total Protein 6.1 L (6.3-8.2) g/dL Albumin 3.4 L (3.5-5.0) g/dL 06/08/25 Range/Units 23:51 WBC (4.50-10.00) 10*3/uL RBC (4.40-5.60) 10*6/uL Hgb (13.0-17.0) g/dL Hct (39.6-50.0) % MCV (80.0-97.0) fL MCH (27.0-32.0) pg MCHC (32.0-37.0) g/dL Plt Count (140-440) 10*3/uL MPV (9.5-12.2) fL Immature Gran % (Auto) % Neutrophils % % Lymphocytes % % Monocytes % % Eosinophils % % Basophils % % Immature Gran # (0.00-0.04) 10*3/uL Neutrophils # (1.80-7.70) 10*3/uL Lymphocytes # (0.90-5.00) 10*3/uL Monocytes # (0.20-1.00) 10*3/uL Eosinophils # (0.04-0.35) 10*3/uL Basophils # (0.00-0.10) 10*3/uL PT (10.0-12.5) sec INR (<1.2) APTT (22.0-30.0) sec Sodium (137-145) mmol/L Potassium (3.5-5.1) mmol/L Chloride (98-107) mmol/L Carbon Dioxide (22-30) mmol/L Anion Gap mmol/L BUN (9-20) mg/dL Creatinine (0.66-1.25) mg/dL Est GFR (CKD-EPI)AfAm (>60 ml/min/1.73 sqM) Est GFR (CKD-EPI)NonAf (>60 ml/min/1.73 sqM) Glucose (74-99) mg/dL Plasma Lactic Acid Kevin 1.4 (0.7-2.0) mmol/L Calcium (8.4-10.2) mg/dL Magnesium (1.6-2.3) mg/dL Total Bilirubin (0.2-1.3) mg/dL AST (17-59) U/L ALT (4-49) U/L Alkaline Phosphatase (38-126) U/L NT-Pro-B Natriuret Pep pg/mL Total Protein (6.3-8.2) g/dL Albumin (3.5-5.0) g/dL Disposition Clinical Impression: Left against medical advice, Hypoxia Disposition: LEFT AGAINST MEDICAL ADVICE Condition: Poor Is patient prescribed a controlled substance at d/c from ED?: No Referrals: Lam Velazquez MD [Primary Care Provider] - 1-2 days
[2025-06-09 00:37] LABS: Basophils # (A) 0.03 10*3/uL (0.00-0.10); Basophils % (A) 0.2 %; Eosinophils # (A) 0.03 10*3/uL (0.04-0.35); Eosinophils % (A) 0.2 %; HCT 36.3 % (39.6-50.0); HGB 12.1 g/dL (13.0-17.0); Lymphocytes # (A) 1.30 10*3/uL (0.90-5.00); Lymphocytes % (A) 10.1 %; MCH 31.1 pg (27.0-32.0); MCHC 33.3 g/dL (32.0-37.0); MCV 93.3 fL (80.0-97.0); Monocytes # (A) 1.22 10*3/uL (0.20-1.00); Monocytes % (A) 9.5 %; Neutrophils # (A) 10.21 10*3/uL (1.80-7.70); Neutrophils % (A) 79.7 %; Platelet Count 222 10*3/uL (140-440); RBC 3.89 10*6/uL (4.40-5.60); RDW 15.0 % (11.5-14.5); WBC 12.83 10*3/uL (4.50-10.00)
[2025-06-09 00:39] LABS: ALT 80 U/L (4-49); AST 42 U/L (17-59); African American GFR (CKD) >90 (>60 ml/min/1.73 sqM); Albumin 3.4 g/dL (3.5-5.0); Alkaline Phosphatase 89 U/L (38-126); Anion Gap 8 mmol/L; Blood Urea Nitrogen 22 mg/dL (9-20); Calcium 9.5 mg/dL (8.4-10.2); Carbon Dioxide 31 mmol/L (22-30); Chloride 93 mmol/L (98-107); Glucose 147 mg/dL (74-99); Magnesium 1.4 mg/dL (1.6-2.3); Non-African American GFR(CKD) >90 (>60 ml/min/1.73 sqM); Potassium 4.2 mmol/L (3.5-5.1); Sodium 132 mmol/L (137-145); Total Protein 6.1 g/dL (6.3-8.2)
[2025-06-09 00:48] LABS: NT-Pro-B-Type Natriuretic Pept 727 pg/mL
[2025-06-09 01:07] LABS: INR 1.2 (<1.2); Partial Thromboplastin Time 26.0 sec (22.0-30.0); Prothrombin Time 12.8 sec (10.0-12.5)
--- NOTE | 2025-06-09 01:34 | XR ---
EXAM: XR Chest, 2 Views CLINICAL HISTORY: ITS.REASON XR Reason: difficulty breathing TECHNIQUE: Frontal and lateral views of the chest. COMPARISON: No relevant prior studies available. FINDINGS: Lungs: Left lower lobe pneumonia. Emphysema. COPD. Pleural space: Unremarkable. No pneumothorax. Heart: Unremarkable. No cardiomegaly. Mediastinum: Unremarkable. Bones/joints: Left clavicle ORIF. IMPRESSION: Left lower lobe pneumonia.
[2025-06-09] MEDS: AZITHROMYCIN 500 MG TAB PO STA (02:43)
== END 2025-06-09 02:52 | disposition left against medical advice (07) ==
LOC: EC 23:32
DX: R09.02 Hypoxemia (principal); Z53.29 Procedure and treatment not carried out because of patient's decision for other reasons; J44.0 Chronic obstructive pulmonary disease with (acute) lower respiratory infection; F17.200 Nicotine dependence, unspecified, uncomplicated
CPT/HCPCS: 36415; 71046; 80053; 83605; 83735; 83880; 85025; 85610; 85730; 93005; 99285

== ENCOUNTER 2025-06-15 16:17 | Emergency (ER) | payer OTHER ==
[2025-06-15 17:08] VITALS: RESP 16; TEMP 98
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
[2025-06-15] MEDS: DIPH,PERTUS(ACELL)TETVAC-LF 0.5 ML VIAL IM ONE (17:27)
[2025-06-15] MEDS: LIDOCAINE 1% INJ 10MG/ML (20 ML MDV) SQ ONE (17:28)
[2025-06-15 18:46] VITALS: BP 145/86; PULSE 62
== END 2025-06-15 20:28 | disposition home or self-care (01) ==
LOC: EC 16:17
DX: S81.812A Laceration without foreign body, left lower leg, initial encounter (principal); F17.200 Nicotine dependence, unspecified, uncomplicated; Z23 Encounter for immunization; V89.2XXA Person injured in unspecified motor-vehicle accident, traffic, initial encounter
CPT/HCPCS: 90715; 99283; 90471; 12002; J2003